=== PATIENT | male | born 1940 | race Caucasian/White ===

== ENCOUNTER 2016-11-29 03:45 | Inpatient (IN) | payer MEDICARE ==
[2016-11-29 03:46] VITALS: BMI 36.9
--- NOTE | 2016-11-29 04:35 | C.PDOC ---
History Of Present Illness Patient presents to the ER with a complaint of urinary retention since yesterday and states he feels very uncomfortable. On arrival a 18 hungarian paulson was inserted, 550cc of reddish urine drained with instant relief. Patient reports he has not been taking his Coumadin for his a-fib. Patient is also complaining of chronic right knee pain. Denies fever, chills, nausea, and vomiting. Time Seen by Provider: 11/29/16 04:34 Chief Complaint (Nursing): Male Genitourinary History Per: Patient History/Exam Limitations: no limitations Onset/Duration Of Symptoms: Hrs Current Symptoms Are (Timing): Still Present Severity: Mild Pain Scale Rating Of: 4 Quality Of Discomfort: Unable To Describe Associated Symptoms: Urinary Symptoms (Retention). denies: Fever, Chills, Nausea, Vomiting Alleviating Factors: None Recent travel outside of the [place]: No Past Medical History Reviewed: Historical Data, Nursing Documentation, Vital Signs Vital Signs: Last Vital Signs Temp 97.9 F 11/29/16 04:10 Pulse 107 H 11/29/16 04:43 Resp 20 11/29/16 04:10 BP 164/85 H 11/29/16 04:10 Pulse Ox 97 11/29/16 05:43 - Medical History PMH: Atrial Fibrillation, CAD, Diabetes, HTN, Hypercholesterolemia Surgical History: Coronary Stent - [facility] Procedures TRANSFUSE NONAUT RED BLOOD CELLS IN PERIPH VEIN, PERC (06/06/15) Family History: States: No Known Family Hx - Social History Hx Alcohol Use: No Hx Substance Use: No - Immunization History Hx Tetanus Toxoid Vaccination: No Hx Influenza Vaccination: No Hx Pneumococcal Vaccination: No Review Of Systems Constitutional: Negative for: Fever, Chills Eyes: Negative for: Vision Change Cardiovascular: Negative for: Chest Pain Respiratory: Negative for: Shortness of Breath Gastrointestinal: Negative for: Nausea, Vomiting Genitourinary: Positive for: Hematuria, Other (Retention, reddish urine) Musculoskeletal: Negative for: Back Pain Skin: Negative for: Rash Neurological: Negative for: Weakness Psych: Negative for: Anxiety Physical Exam - Physical Exam Appears: Non-toxic Skin: Warm, Dry Head: Normacephalic Eye(s): bilateral: Normal Inspection Oral Mucosa: Moist Neck: Supple Chest: Symmetrical Cardiovascular: Rhythm Irregular Respiratory: No Rales, No Rhonchi, No Wheezing Gastrointestinal/Abdominal: Soft, No Tenderness, Distention, Other (Tympanic to percussion) Back: No CVA Tenderness Extremity: Pedal Edema (Trace) Extremity: Bilateral: Atraumatic, Normal Color And Temperature, Normal ROM Pulses: Left Dorsalis Pedis: Normal, Right Dorsalis Pedis: Normal Neurological/Psych: Oriented x3, Normal Speech, Normal Cognition Gait: Unable To Assess ED Course And Treatment - Laboratory Results Result Diagrams: 11/29/16 04:47 11/29/16 04:47 ECG: Interpreted By Me, Viewed By Me ECG Rhythm: Atrial Fibrillation (107), Nonspecific Changes (lad, prolongued QT. , unchanged from 06/06/15) O2 Sat by Pulse Oximetry: 97 (Room air) Pulse Ox Interpretation: Normal - Radiology CXR: Interpreted by Me, Viewed By Me CXR Interpretation: Yes: Cardiomegaly, Other (mild venous congestion). No: Infiltrates, Fracture, Pnemothorax Progress Note: Blood work, EKG, CXR, and urinalysis ordered. Disposition Discussed With DrHaley: Shannon Stein Comment[facility] took over [facility] care at 5:56 AM Doctor Will See Patient In The: Hospital Counseled Patient/Family Regarding: Studies Performed, Diagnosis - Disposition Disposition: HOSPITALIZED Disposition Time: 04:34 Condition: FAIR Forms: [facility] (Vietnamese) - POA Present On Arrival: Poor Glycemic Control - Clinical Impression Clinical Impression: Urinary retention, Hematuria, Uncontrolled atrial fibrillation, Subtherapeutic anticoagulation - Scribe Statement The provider has reviewed the documentation as recorded by the Scribshay Nathan All medical record entries made by the Scribe were at my direction and personally dictated by me. I have reviewed the chart and agree that the record accurately reflects my personal performance of the history, physical exam, medical decision making, and the department course for this patient. I have also personally directed, reviewed, and agree with the discharge instructions and disposition. Decision To Admit - Pt Status Changed To: Hospital Disposition Of: Inpatient - Admit Certification Admit to Inpatient:: After my assessment, the patient will require hospitalization for at least two midnights. This is because of the severity of symptoms shown, intensity of services needed, and/or the medical risk in this patient being treated as an outpatient. - InPatient: Physician Admission Certification: I certify that this patient requires 2 or more midnights of care for the following reason:: After my assessment, the patient will require hospitalization for at least two midnights. This is because of the severity of symptoms shown, intensity of services needed, and/or the medical risk in this patient being treated as an outpatient. - . Bed Request Type: Telemetry Admitting Physician: Shannon Stein Patient Diagnosis: Urinary retention, Hematuria, Uncontrolled atrial fibrillation, Subtherapeutic anticoagulation
[2016-11-29 04:50] LABS: BASO # 0.1 K/uL (0.0-0.2); EOS % 0.4 % (0.0-4.0); MEAN CORPUSCULAR HGB CONC 33.9 g/dL (33.0-37.0)
[2016-11-29 04:57] LABS: RBC URINE 780 /hpf (0-3); URINE BILIRUBIN NEGATIVE (NEGATIVE); URINE BLOOD 3+ (NEGATIVE); URINE COLOR Yellow (YELLOW); URINE GLUCOSE (UA) 3+ mg/dL (Normal); URINE KETONE NEGATIVE (NEGATIVE); URINE LEUKOCYTE ESTERASE NEG Leu/uL (Negative); URINE PROTEIN 3+ mg/dL (NEGATIVE); URINE UROBILINOGEN NORMAL mg/dL (0.2-1.0)
[2016-11-29 05:01] LABS: BILIRUBIN,TOTAL 0.9 mg/dL (0.2-1.3); TOTAL PROTEIN 6.9 g/dL (6.3-8.3)
[2016-11-29 05:02] LABS: CALCIUM 9.6 mg/dl (8.6-10.4)
[2016-11-29 05:33] LABS: BASO % 0.8 % (0.0-2.0); HEMATOCRIT 40.6 % (35.0-51.0); LYMPH % 7.6 % (20.0-40.0); MEAN CORPUSCULAR HEMOGLOBIN 29.5 pg (27.0-31.0); MEAN PLATELET VOLUME 9.5 fL (7.2-11.7); MONO # 0.9 K/uL (0.0-0.8); PLATELET COUNT 141 K/uL (130-400); RED CELL DISTRIBUTION WIDTH 14.3 % (11.5-14.5)
[2016-11-29] MEDS ORDERED: Enoxaparin 40 mg Syringe SC STA (05:47)
[2016-11-29 06:02] LABS: BASOPHIL 1 % (0-2); EOSINOPHIL 1 % (0-4); NEUTROPHIL 87 % (50-75); TOTAL CELLS COUNTED 100
--- NOTE | 2016-11-29 09:25 | RAD ---
PROCEDURE: CHEST RADIOGRAPH, 1 VIEW HISTORY: Shortness of breath COMPARISON: None available. FINDINGS: LUNGS: Mild venous congestion. Patchy bibasilar airspace opacities. Biapical pleural thickening with upper lobe granulomatous changes. PLEURA: No pneumothorax or pleural fluid seen. CARDIOVASCULAR: Tortuous aorta. Mild cardiomegaly. Calcification at the aortic knob. OSSEOUS STRUCTURES: No significant abnormalities. VISUALIZED UPPER ABDOMEN: Normal. OTHER FINDINGS: None. IMPRESSION: Mild venous congestion. Patchy bibasilar airspace opacities. Biapical pleural thickening with upper lobe granulomatous changes.
[2016-11-29] MEDS: Ciprofloxacin 400mg/200ml D5W 400 MG/200 ML BAG IVPB SCH (16:24)
--- NOTE | 2016-11-29 16:37 | CP.PCM.HP ---
Past Patient History - Infectious Disease Hx of Infectious Diseases: None - Past Medical History & Family History Past Medical History?: Yes - Past Social History Smoking Status: Never Smoked - CARDIAC Hx Atrial Fibrillation: Yes Hx Hypercholesterolemia: Yes Hx Hypertension: Yes - PULMONARY Hx Chronic Obstructive Pulmonary Disease (COPD): No - NEUROLOGICAL Hx Neurological Disorder: No - HEENT Hx HEENT Problems: No - RENAL Hx Chronic Kidney Disease: No - ENDOCRINE/METABOLIC Hx Hypothyroidism: No - HEMATOLOGICAL/ONCOLOGICAL Hx Human Immunodeficiency Virus (HIV): No - INTEGUMENTARY Hx Dermatological Problems: No - MUSCULOSKELETAL/RHEUMATOLOGICAL Hx Arthritis: No Hx Rheumatoid Arthritis: No - GASTROINTESTINAL Hx Gastrointestinal Disorders: No - GENITOURINARY/GYNECOLOGICAL Hx Genitourinary Disorders: No - PSYCHIATRIC Hx Substance Use: No - SURGICAL HISTORY Hx Coronary Stent: Yes - ANESTHESIA Hx Anesthesia: Yes Hx Anesthesia Reactions: No Hx Malignant Hyperthermia: No Meds Allergies/Adverse Reactions: Allergies Allergy/AdvReac Type Severity Reaction Status Date / Time No Known Allergies Allergy Verified 11/29/16 04:15 Physical Exam - Constitutional Appears: Well - Head Exam Head Exam: ATRAUMATIC, NORMAL INSPECTION, NORMOCEPHALIC - Eye Exam Eye Exam: EOMI, Normal appearance, PERRL Pupil Exam: NORMAL ACCOMODATION, PERRL - ENT Exam ENT Exam: Mucous Membranes Moist, Normal Exam - Neck Exam Neck exam: Positive for: Normal Inspection - Respiratory Exam Respiratory Exam: Decreased Breath Sounds - Cardiovascular Exam Cardiovascular Exam: REGULAR RHYTHM, +S1, +S2 - GI/Abdominal Exam GI & Abdominal Exam: Diminished Bowel Sounds, Soft - Rectal Exam Rectal Exam: Deferred Results - Vital Signs Recent Vital Signs: Last Vital Signs Temp 98.5 F 11/29/16 07:38 Pulse 96 H 11/29/16 15:30 Resp 18 11/29/16 15:30 BP 163/109 H 11/29/16 15:30 Pulse Ox 96 11/29/16 15:30 - Labs Result Diagrams: 11/29/16 04:47 11/29/16 04:47 Labs: Laboratory Results - last 24 hr 11/29/16 11/29/16 11/29/16 04:47 04:47 04:47 WBC 13.0 H RBC 4.67 Hgb 13.8 Hct 40.6 MCV 87.0 MCH 29.5 MCHC 33.9 RDW 14.3 Plt Count 141 MPV 9.5 Neut % (Auto) 84.2 H Lymph % (Auto) 7.6 L [place] % (Auto) 7.0 Eos % (Auto) 0.4 Baso % (Auto) 0.8 Neut # 10.9 H Lymph # 1.0 [place] # 0.9 H Eos # 0.0 Baso # 0.1 Neutrophils % (Manual) 87 H Lymphocytes % (Manual) 5 L Monocytes % (Manual) 6 Eosinophils % (Manual) 1 Basophils % (Manual) 1 Platelet Estimate Normal PT 11.6 INR 1.0 APTT 31 Sodium 139 Potassium 4.0 Chloride 97 L Carbon Dioxide 27 Anion Gap 19 BUN 22 H Creatinine 1.4 Est GFR ( Amer) 60 Est GFR (Non-Af Amer) 49 POC Glucose (mg/dL) Random Glucose 247 H Calcium 9.6 Total Bilirubin 0.9 AST 22 ALT 27 Alkaline Phosphatase 117 Total Protein 6.9 Albumin 3.5 Globulin 3.5 Albumin/Globulin Ratio 1.0 Urine Color Urine Clarity Urine pH Ur Specific [place] Urine Protein Urine Glucose (UA) Urine Ketones Urine Blood Urine Nitrate Urine Bilirubin Urine Urobilinogen Ur Leukocyte Esterase Urine RBC (Auto) 11/29/16 11/29/16 04:49 14:21 WBC RBC Hgb Hct MCV MCH MCHC RDW Plt Count MPV Neut % (Auto) Lymph % (Auto) [place] % (Auto) Eos % (Auto) Baso % (Auto) Neut # Lymph # [place] # Eos # Baso # Neutrophils % (Manual) Lymphocytes % (Manual) Monocytes % (Manual) Eosinophils % (Manual) Basophils % (Manual) Platelet Estimate PT INR APTT Sodium Potassium Chloride Carbon Dioxide Anion Gap BUN Creatinine Est GFR ( Amer) Est GFR (Non-Af Amer) POC Glucose (mg/dL) 292 H Random Glucose Calcium Total Bilirubin AST ALT Alkaline Phosphatase Total Protein Albumin Globulin Albumin/Globulin Ratio Urine Color Yellow Urine Clarity Hazy Urine pH 7.0 Ur Specific [place] 1.014 Urine Protein 3+ H Urine Glucose (UA) 3+ H Urine Ketones Negative Urine Blood 3+ H Urine Nitrate Negative Urine Bilirubin Negative Urine Urobilinogen Normal Ur Leukocyte Esterase Neg Urine RBC (Auto) 780 H
--- NOTE | 2016-11-29 16:40 | CT ---
PROCEDURE: CT Abdomen and Pelvis without intravenous contrast HISTORY: Hematuria COMPARISON: None. TECHNIQUE: Without contrast.. Contrast Dose: 0 Radiation dose: Total exam DLP = 1173.26 mGy-cm. This CT exam was performed using one or more of the following dose reduction techniques: Automated exposure control, adjustment of the mA and/or kV according to patient size, and/or use of iterative reconstruction technique. FINDINGS: LOWER THORAX: Right middle lobe infiltrate. Only partially included in this examination. Mild cardiomegaly. Coronary arterial calcification. LIVER: Normal size, contour and attenuation. No mass. No biliary dilatation. GALLBLADDER AND BILE DUCTS: Unremarkable. PANCREAS: Unremarkable. No gross lesion or ductal dilatation. SPLEEN: Unremarkable. ADRENALS: Probable bilateral adrenal hypertrophy. No adrenal mass identified. KIDNEYS AND URETERS: Severe left hydronephrosis with a thin rim of remaining cortex. No hydroureter. 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 Punctate calcification in lower pole left kidney, nonspecific. No right hydronephrosis. Minimal right hydroureter, nonspecific. Mild light power re- ureteric stranding. This may indicate a recently passed urinary calculus. Right lower pole renal cyst, 3.1 cm. Mid right renal cortical cyst, 7.4 cm, with irregular curvilinear peripheral calcification. Recommend correlation with ultrasound examination. No renal calculus. VASCULATURE: Unremarkable. No aortic aneurysm. BOWEL: Sigmoid diverticulosis without evidence of diverticulitis. Mild retained feces. APPENDIX: Unremarkable. Normal appendix. PERITONEUM: Unremarkable. No free fluid. No free air. LYMPH NODES: Unremarkable. No enlarged lymph nodes. BLADDER: Decompressed around Lord catheter balloon REPRODUCTIVE: Enlarged prostate. Normal seminal vesicles. BONES: Lumbar scoliosis. No osseous fracture. Small bone island in the L3 vertebral body. OTHER FINDINGS: None. IMPRESSION: Right middle lobe infiltrate only partially included in this examination. Severe left hydronephrosis with thin residual cortex. Likely ureteropelvic junction obstruction, etiology uncertain. No right hydronephrosis. Mild right hydroureter common nonspecific. Mild right periureteric stranding. Possible recently passed urinary calculus. Sigmoid diverticulosis without evidence of diverticulitis. Enlarged prostate. Lord catheter. Large right renal cyst with atypical mural calcification. Recommend correlation with ultrasound examination on a nonemergent basis. Additional minor findings as above.
[2016-11-29] MEDS: Enoxaparin 100 mg Syringe SC SCH (16:46)
[2016-11-29] MEDS ORDERED: HYDROmorphone 1 mg/ml ISec IVP PRN (23:11)
[2016-11-30] MEDS: Ciprofloxacin 400mg/200ml D5W 400 MG/200 ML BAG IVPB SCH ×2 (03:29→14:12)
[2016-11-30] MEDS: Levothyroxine 25 MCG TAB PO SCH (05:58)
[2016-11-30] MEDS ORDERED: Pantoprazole 40 mg EC Tab PO SCH (10:00)
[2016-11-30] MEDS ORDERED: Metoprolol Succinate 200 mg XL Tab PO SCH (10:00)
[2016-11-30] MEDS: Enoxaparin 100 mg Syringe SC SCH ×2 (10:59→14:11)
[2016-11-30] MEDS: Metoprolol Succinate 100 mg XL Tab PO SCH (10:59)
[2016-11-30] MEDS: Pantoprazole 40 mg EC Tab PO SCH (11:00)
--- NOTE | 2016-11-30 18:32 | CP.PCM.PN ---
Subjective - Date & Time of Evaluation Date of Evaluation: 11/30/16 Time of Evaluation: 13:20 - Subjective Subjective: clinically same Objective - Vital Signs/Intake and Output Vital Signs (last 24 hours): Temp Pulse Resp BP Pulse Ox 98.0 F 86 20 145/90 97 11/30/16 15:15 11/30/16 15:15 11/30/16 15:15 11/30/16 15:15 11/30/16 15:15 Intake and Output: 11/30/16 11/30/16 06:59 18:59 Intake Total 680 475 Output Total 1000 300 Balance -320 175 - Medications Medications: Current Medications Amlodipine Besylate (Norvasc) 5 mg PO DAILY [facility] Last Admin: 11/30/16 13:30 Dose: 5 mg Enoxaparin Sodium (Lovenox) 100 mg SC DAILY [facility] Last Admin: 11/30/16 14:11 Dose: 100 mg Glipizide (Glucotrol) 5 mg PO BID [facility] Last Admin: 11/30/16 18:02 Dose: Not Given Hydrochlorothiazide (Microzide) 12.5 mg PO DAILY [facility] Last Admin: 11/30/16 10:59 Dose: 12.5 mg Hydromorphone HCl (Dilaudid) 1 mg IVP Q8H PRN PRN Reason: Pain, severe (8-10) Ciprofloxacin (Cipro 400mg/200ml Dsw) 400 mg in 200 mls @ 133 mls/hr IVPB Q12H [facility] Last Admin: 11/30/16 14:12 Dose: 133 mls/hr Levothyroxine Sodium (Synthroid) 25 mcg PO DAILY@0630 [facility] Last Admin: 11/30/16 05:58 Dose: 25 mcg Losartan Potassium (Cozaar) 100 mg PO DAILY [facility] Last Admin: 11/30/16 10:59 Dose: 100 mg Metformin HCl (Glucophage) 1,000 mg PO BID [facility] Last Admin: 11/30/16 18:02 Dose: Not Given Metoprolol Succinate (Toprol Xl) 100 mg PO DAILY [facility] Last Admin: 11/30/16 10:59 Dose: 100 mg Pantoprazole Sodium (Protonix Ec Tab) 40 mg PO DAILY [facility] Last Admin: 11/30/16 11:00 Dose: Not Given Rosuvastatin Calcium (Crestor) 10 mg PO HS [facility] Last Admin: 11/29/16 22:37 Dose: Not Given Tamsulosin HCl (Flomax) 0.4 mg PO DAILY [facility] Last Admin: 11/30/16 13:30 Dose: 0.4 mg - Labs Labs: 11/29/16 04:47 11/29/16 04:47 PT 11.6 SECONDS (9.7-12.2) 11/29/16 04:47 INR 1.0 11/29/16 04:47 APTT 31 SECONDS (21-34) 11/29/16 04:47 - Constitutional Appears: Well - Head Exam Head Exam: ATRAUMATIC, NORMAL INSPECTION, NORMOCEPHALIC - Eye Exam Eye Exam: EOMI, Normal appearance, PERRL Pupil Exam: NORMAL ACCOMODATION, PERRL - ENT Exam ENT Exam: Mucous Membranes Moist, Normal Exam - Neck Exam Neck Exam: Full ROM, Normal Inspection. absent: Lymphadenopathy - Respiratory Exam Respiratory Exam: Decreased Breath Sounds - Cardiovascular Exam Cardiovascular Exam: REGULAR RHYTHM, +S1, +S2 - GI/Abdominal Exam GI & Abdominal Exam: Soft, Diminished Bowel Sounds - Rectal Exam Rectal Exam: Deferred
[2016-12-01] MEDS: HYDROmorphone 0.5 mg/0.5 ml ISec IVP PRN ×2 (01:53→21:48)
[2016-12-01] MEDS: Ciprofloxacin 400mg/200ml D5W 400 MG/200 ML BAG IVPB SCH ×2 (02:01→14:24)
[2016-12-01] MEDS: Levothyroxine 25 MCG TAB PO SCH (05:58)
[2016-12-01] MEDS: Metoprolol Succinate 100 mg XL Tab PO SCH (10:10)
[2016-12-01] MEDS: Pantoprazole 40 mg EC Tab PO SCH (10:10)
[2016-12-01] MEDS: Enoxaparin 100 mg Syringe SC SCH (10:15)
[2016-12-01] MEDS ORDERED: Lidocaine Hydrochloride 5 ML INJ ONE (10:27)
[2016-12-01] MEDS ORDERED: Propofol 10 mg/ml Inj (20 ML) ONE (10:27)
[2016-12-01] MEDS ORDERED: Iohexol 240 (50 ml) ONE (11:11)
[2016-12-01] MEDS ORDERED: Lidocaine 2% Jelly (Uro-Jet) ONE (11:11)
[2016-12-01] MEDS ORDERED: Lactated Ringer's 1,000 ML IV ONE (11:15)
[2016-12-01] MEDS ORDERED: Iohexol 240 200 ML IJ ONE (11:21)
[2016-12-01] MEDS ORDERED: Midazolam 2 MG/2 ML VIAL ONE ×2 (11:22→11:33)
--- NOTE | 2016-12-01 11:52 | CARD ---
APPROVED REPORT EKG Measurement Heart [id number] <Conclusion> Atrial fibrillation with rapid ventricular response with premature ventricular or aberrantly conducted complexes Left axis deviation Septal infarct, age undetermined Inferior infarct, age undetermined T wave abnormality, consider lateral ischemia Prolonged QT Abnormal ECG
--- NOTE | 2016-12-01 12:26 | CP.PCM.CON ---
History of Present Illness - History of Present Illness History of Present Illness: Imp: hematuria, urinary retnetion full note t/f Past Patient History - Infectious Disease Hx of Infectious Diseases: None - Past Medical History & Family History Past Medical History?: Yes - Past Social History Smoking Status: Never Smoked - CARDIAC Hx Atrial Fibrillation: Yes Hx Hypercholesterolemia: Yes Hx Hypertension: Yes - PULMONARY Hx Chronic Obstructive Pulmonary Disease (COPD): No - NEUROLOGICAL Hx Neurological Disorder: No - HEENT Hx HEENT Problems: No - RENAL Hx Chronic Kidney Disease: No - ENDOCRINE/METABOLIC Hx Hypothyroidism: No - HEMATOLOGICAL/ONCOLOGICAL Hx Human Immunodeficiency Virus (HIV): No - INTEGUMENTARY Hx Dermatological Problems: No - MUSCULOSKELETAL/RHEUMATOLOGICAL Hx Arthritis: No Hx Falls: Yes Hx Rheumatoid Arthritis: No - GASTROINTESTINAL Hx Gastrointestinal Disorders: No - GENITOURINARY/GYNECOLOGICAL Hx Genitourinary Disorders: No - PSYCHIATRIC Hx Substance Use: No - SURGICAL HISTORY Hx Coronary Stent: Yes - ANESTHESIA Hx Anesthesia: Yes Hx Anesthesia Reactions: No Hx Malignant Hyperthermia: No Meds Allergies/Adverse Reactions: Allergies Allergy/AdvReac Type Severity Reaction Status Date / Time No Known Allergies Allergy Verified 11/29/16 04:15 - Medications Medications: Current Medications Amlodipine Besylate (Norvasc) 5 mg PO DAILY [facility] Last Admin: 12/01/16 10:10 Dose: 5 mg Enoxaparin Sodium (Lovenox) 100 mg SC DAILY [facility] Last Admin: 11/30/16 14:11 Dose: 100 mg Glipizide (Glucotrol) 5 mg PO BID [facility] Last Admin: 12/01/16 10:10 Dose: 5 mg Hydrochlorothiazide (Microzide) 12.5 mg PO DAILY [facility] Last Admin: 12/01/16 10:10 Dose: 12.5 mg Hydromorphone HCl (Dilaudid) 1 mg IVP Q8H PRN PRN Reason: Pain, severe (8-10) Last Admin: 12/01/16 01:53 Dose: 1 mg Ciprofloxacin (Cipro 400mg/200ml Dsw) 400 mg in 200 mls @ 133 mls/hr IVPB Q12H [facility] Last Admin: 12/01/16 02:01 Dose: 133 mls/hr Levothyroxine Sodium (Synthroid) 25 mcg PO DAILY@0630 [facility] Last Admin: 12/01/16 05:58 Dose: 25 mcg Losartan Potassium (Cozaar) 100 mg PO DAILY [facility] Last Admin: 12/01/16 10:10 Dose: 100 mg Metformin HCl (Glucophage) 1,000 mg PO BID [facility] Last Admin: 12/01/16 10:09 Dose: 1,000 mg Metoprolol Succinate (Toprol Xl) 100 mg PO DAILY [facility] Last Admin: 12/01/16 10:10 Dose: 100 mg Pantoprazole Sodium (Protonix Ec Tab) 40 mg PO DAILY [facility] Last Admin: 12/01/16 10:10 Dose: 40 mg Rosuvastatin Calcium (Crestor) 10 mg PO HS [facility] Last Admin: 11/30/16 22:33 Dose: 10 mg Tamsulosin HCl (Flomax) 0.4 mg PO DAILY [facility] Last Admin: 12/01/16 10:10 Dose: 0.4 mg Results - Vital Signs Recent Vital Signs: Last Vital Signs Temp 98.1 F 12/01/16 08:38 Pulse 90 12/01/16 08:38 Resp 20 12/01/16 08:38 BP 142/79 12/01/16 08:38 Pulse Ox 96 12/01/16 08:38 - Labs Result Diagrams: 11/29/16 04:47 11/29/16 04:47 Labs: Laboratory Results - last 24 hr 11/30/16 11/30/16 12/01/16 12:08 16:56 06:31 POC Glucose (mg/dL) 249 H 230 H 189 H Assessment & Plan - Assessment and Plan (Free Text) Assessment: Urinary retention hematuria - Date & Time Date: 12/01/16 Time: 10:30
--- NOTE | 2016-12-01 12:31 | PCM.SURG1 ---
Surgeon's Initial Post Op Note - Surgeon's Notes Surgeon: Nile Martinez Finishing Wire Sawyer: none Type of Anesthesia: IV Sedation Pre-Operative Diagnosis: urinary retention. hematuria. L hydronephrosis Operative Findings: bph. bleeding of prostatic origin. hemorrhagic cystitis. tortuous and medially deviated course of L distal ureter. L hydronephrosis, mild, not corresponding to ct scan Post-Operative Diagnosis: same Operation Performed: cystogram. cystoscopy. fulguration of prostatic bleeding. L retrograde pyelogram, insertion of L ureteral stent Specimen/Specimens Removed: none Estimated Blood Loss: EBL {In ML}: 20 Blood Products Given: N/A Date of Surgery/Procedure: 12/01/16 Time of Surgery/Procedure: 12:25
[2016-12-01] MEDS ORDERED: HYDROmorphone 0.5 mg/0.5 ml ISec IVP PRN (12:37)
[2016-12-01] MEDS ORDERED: HYDROmorphone 0.5 mg/0.5 ml ISec ONE (12:39)
--- NOTE | 2016-12-01 15:43 | RAD ---
PROCEDURE: Intraoperative fluoroscopy HISTORY: HEMATURIA,URINARY RETENTION COMPARISON: Not available TECHNIQUE: Intraoperative fluoroscopy was provided for cystography and left ureteral stent insertion. Total time of fluoroscopy was 114.9 seconds. FINDINGS: Multiple fluoroscopic spot films are submitted. These films are on file for review. IMPRESSION: Fluoroscopy provided.
[2016-12-01] MEDS: Lactated Ringer's 1,000 ML IV SCH (19:13)
--- NOTE | 2016-12-01 20:00 | CP.PCM.PN ---
Subjective - Date & Time of Evaluation Date of Evaluation: 12/01/16 Time of Evaluation: 12:20 - Subjective Subjective: clinically same Objective - Vital Signs/Intake and Output Vital Signs (last 24 hours): Temp Pulse Resp BP Pulse Ox 98.0 F 89 20 133/84 98 12/01/16 15:25 12/01/16 15:25 12/01/16 15:25 12/01/16 15:25 12/01/16 15:25 Intake and Output: 12/01/16 12/02/16 18:59 06:59 Intake Total 640 Output Total 450 Balance 190 - Medications Medications: Current Medications Amlodipine Besylate (Norvasc) 5 mg PO DAILY [facility] Last Admin: 12/01/16 10:10 Dose: 5 mg Enoxaparin Sodium (Lovenox) 100 mg SC DAILY [facility] Last Admin: 12/01/16 10:15 Dose: Not Given Glipizide (Glucotrol) 5 mg PO BID [facility] Last Admin: 12/01/16 19:16 Dose: 5 mg Hydrochlorothiazide (Microzide) 12.5 mg PO DAILY [facility] Last Admin: 12/01/16 10:10 Dose: 12.5 mg Hydromorphone HCl (Dilaudid) 1 mg IVP Q8H PRN PRN Reason: Pain, severe (8-10) Last Admin: 12/01/16 01:53 Dose: 1 mg Ciprofloxacin (Cipro 400mg/200ml Dsw) 400 mg in 200 mls @ 133 mls/hr IVPB Q12H [facility] Last Admin: 12/01/16 14:24 Dose: 133 mls/hr Lactated Ringer's (Lactated Ringer's) 1,000 mls @ 100 mls/hr IV .Q10H [facility] Last Admin: 12/01/16 19:13 Dose: 100 mls/hr Levothyroxine Sodium (Synthroid) 25 mcg PO DAILY@0630 [facility] Last Admin: 12/01/16 05:58 Dose: 25 mcg Losartan Potassium (Cozaar) 100 mg PO DAILY [facility] Last Admin: 12/01/16 10:10 Dose: 100 mg Metformin HCl (Glucophage) 1,000 mg PO BID [facility] Last Admin: 12/01/16 19:16 Dose: 1,000 mg Metoprolol Succinate (Toprol Xl) 100 mg PO DAILY [facility] Last Admin: 12/01/16 10:10 Dose: 100 mg Pantoprazole Sodium (Protonix Ec Tab) 40 mg PO DAILY [facility] Last Admin: 12/01/16 10:10 Dose: 40 mg Rosuvastatin Calcium (Crestor) 10 mg PO HS [facility] Last Admin: 11/30/16 22:33 Dose: 10 mg Tamsulosin HCl (Flomax) 0.4 mg PO DAILY [facility] Last Admin: 12/01/16 10:10 Dose: 0.4 mg - Labs Labs: 11/29/16 04:47 11/29/16 04:47 PT 11.6 SECONDS (9.7-12.2) 11/29/16 04:47 INR 1.0 11/29/16 04:47 APTT 31 SECONDS (21-34) 11/29/16 04:47 - Constitutional Appears: Well - Head Exam Head Exam: ATRAUMATIC, NORMAL INSPECTION, NORMOCEPHALIC - Eye Exam Eye Exam: EOMI, Normal appearance, PERRL Pupil Exam: NORMAL ACCOMODATION, PERRL - ENT Exam ENT Exam: Mucous Membranes Moist, Normal Exam - Neck Exam Neck Exam: Full ROM, Normal Inspection. absent: Lymphadenopathy - Respiratory Exam Respiratory Exam: Decreased Breath Sounds - Cardiovascular Exam Cardiovascular Exam: REGULAR RHYTHM, +S1, +S2 - GI/Abdominal Exam GI & Abdominal Exam: Soft, Diminished Bowel Sounds - Rectal Exam Rectal Exam: Deferred
[2016-12-02] MEDS: Ciprofloxacin 400mg/200ml D5W 400 MG/200 ML BAG IVPB SCH ×2 (02:04→14:34)
[2016-12-02] MEDS: HYDROmorphone 0.5 mg/0.5 ml ISec IVP PRN (06:03)
[2016-12-02] MEDS: Levothyroxine 25 MCG TAB PO SCH (06:03)
[2016-12-02] MEDS: Lactated Ringer's 1,000 ML IV SCH (06:13)
[2016-12-02 07:21] LABS: HEMATOCRIT 35.5 % (35.0-51.0); MEAN CELL VOLUME 87.1 fL (80.0-94.0); MEAN CORPUSCULAR HEMOGLOBIN 29.7 pg (27.0-31.0); MEAN CORPUSCULAR HGB CONC 34.1 g/dL (33.0-37.0); MEAN PLATELET VOLUME 9.1 fL (7.2-11.7); WHITE BLOOD COUNT 9.5 K/uL (4.8-10.8)
[2016-12-02 07:55] LABS: CHLORIDE 93 mmol/L (98-107); POTASSIUM 3.6 mmol/L (3.6-5.2); SODIUM 129 mmol/L (132-148)
[2016-12-02 07:58] LABS: BLOOD UREA NITROGEN 24 mg/dL (9-20); CARBON DIOXIDE 26 mmol/L (22-30); GFR AFRICAN-AMERICAN > 60
[2016-12-02 07:59] LABS: CALCIUM 8.4 mg/dl (8.6-10.4); GLUCOSE,RANDOM 142 mg/dL (75-110)
[2016-12-02] MEDS: Metoprolol Succinate 100 mg XL Tab PO SCH (09:41)
[2016-12-02] MEDS: Pantoprazole 40 mg EC Tab PO SCH (09:41)
--- NOTE | 2016-12-02 09:47 | CP.PCM.PN ---
Subjective - Date & Time of Evaluation Date of Evaluation: 12/02/16 Time of Evaluation: 12:20 - Subjective Subjective: clinically same Objective - Vital Signs/Intake and Output Vital Signs (last 24 hours): Temp Pulse Resp BP Pulse Ox 97.8 F 79 20 151/91 H 98 12/02/16 07:25 12/02/16 07:25 12/02/16 07:25 12/02/16 07:25 12/02/16 07:25 Intake and Output: 12/02/16 12/02/16 06:59 18:59 Intake Total 2270 Output Total 300 Balance 1970 - Medications Medications: Current Medications Amlodipine Besylate (Norvasc) 5 mg PO DAILY [facility] Last Admin: 12/02/16 09:41 Dose: 5 mg Enoxaparin Sodium (Lovenox) 100 mg SC DAILY [facility] Last Admin: 12/01/16 10:15 Dose: Not Given Glipizide (Glucotrol) 5 mg PO BID [facility] Last Admin: 12/02/16 09:41 Dose: 5 mg Hydrochlorothiazide (Microzide) 12.5 mg PO DAILY [facility] Last Admin: 12/02/16 09:41 Dose: 12.5 mg Hydromorphone HCl (Dilaudid) 1 mg IVP Q8H PRN PRN Reason: Pain, severe (8-10) Last Admin: 12/02/16 06:03 Dose: 1 mg Ciprofloxacin (Cipro 400mg/200ml Dsw) 400 mg in 200 mls @ 133 mls/hr IVPB Q12H [facility] Last Admin: 12/02/16 02:04 Dose: 133 mls/hr Lactated Ringer's (Lactated Ringer's) 1,000 mls @ 100 mls/hr IV .Q10H [facility] Last Admin: 12/02/16 06:13 Dose: 100 mls/hr Levothyroxine Sodium (Synthroid) 25 mcg PO DAILY@0630 [facility] Last Admin: 12/02/16 06:03 Dose: 25 mcg Losartan Potassium (Cozaar) 100 mg PO DAILY [facility] Last Admin: 12/02/16 09:41 Dose: 100 mg Metformin HCl (Glucophage) 1,000 mg PO BID [facility] Last Admin: 12/02/16 09:40 Dose: 1,000 mg Metoprolol Succinate (Toprol Xl) 100 mg PO DAILY [facility] Last Admin: 12/02/16 09:41 Dose: 100 mg Pantoprazole Sodium (Protonix Ec Tab) 40 mg PO DAILY [facility] Last Admin: 12/02/16 09:41 Dose: 40 mg Rosuvastatin Calcium (Crestor) 10 mg PO HS [facility] Last Admin: 12/01/16 21:57 Dose: 10 mg Tamsulosin HCl (Flomax) 0.4 mg PO DAILY [facility] Last Admin: 12/02/16 09:41 Dose: 0.4 mg - Labs Labs: 12/02/16 07:06 12/02/16 07:06 PT 11.6 SECONDS (9.7-12.2) 11/29/16 04:47 INR 1.0 11/29/16 04:47 APTT 31 SECONDS (21-34) 11/29/16 04:47 - Constitutional Appears: Well - Head Exam Head Exam: ATRAUMATIC, NORMAL INSPECTION, NORMOCEPHALIC - Eye Exam Eye Exam: EOMI, Normal appearance, PERRL Pupil Exam: NORMAL ACCOMODATION, PERRL - ENT Exam ENT Exam: Mucous Membranes Moist, Normal Exam - Neck Exam Neck Exam: Full ROM, Normal Inspection. absent: Lymphadenopathy - Respiratory Exam Respiratory Exam: Decreased Breath Sounds - Cardiovascular Exam Cardiovascular Exam: REGULAR RHYTHM, +S1, +S2 - GI/Abdominal Exam GI & Abdominal Exam: Soft, Diminished Bowel Sounds - Rectal Exam Rectal Exam: Deferred
[2016-12-02] MEDS: Enoxaparin 100 mg Syringe SC SCH (10:00)
--- NOTE | 2016-12-02 10:50 | RAD ---
PROCEDURE: Bilateral Knee Radiographs. HISTORY: Knee pain COMPARISON: None. FINDINGS: BONES: There is no fracture appreciated bilaterally. However, there is somewhat mottled appearance at the left patella. Diffuse osteopenia suggests osteoporosis bilaterally appears unclear with this mottled appearance of the left patella is a function of osteoporosis or other underlying process. Fall left knee MRI is recommended for additional characterization. JOINTS: Bilateral medial and patellofemoral compartment joint space narrowing is identified accompanied by cortical sclerosis compatible osteoarthritis. The lateral femorotibial compartments appear least affected. No subluxation or dislocation. SOFT TISSUES: Vascular calcifications are identified in the posterior knee soft tissues bilaterally as well as medial distal thigh is as well JOINT EFFUSION: Right Knee: None. Left Knee: Trace left suprapatellar bursa effusion is in question. OTHER FINDINGS: None. IMPRESSION: 1. A mottled appearance of the left patella is identified, potentially a function of osteoporosis although this is not definite. Follow-up MRI of the left knee is advised for did greater characterization. 2. Moderate degenerative joint changes are appreciated, predominantly bicompartmental bilaterally.
[2016-12-03] MEDS: Ciprofloxacin 400mg/200ml D5W 400 MG/200 ML BAG IVPB SCH ×2 (02:46→14:59)
[2016-12-03 03:59] LABS: ESTIM. PROBABILITY CANCER >50 Percent; TOTAL PSA 23.5 ng/mL (<=4.0)
[2016-12-03] MEDS: Levothyroxine 25 MCG TAB PO SCH (05:41)
[2016-12-03] MEDS: HYDROmorphone 0.5 mg/0.5 ml ISec IVP PRN ×2 (05:45→23:09)
[2016-12-03] MEDS: Pantoprazole 40 mg EC Tab PO SCH (10:58)
[2016-12-03] MEDS: Metoprolol Succinate 100 mg XL Tab PO SCH (11:06)
--- NOTE | 2016-12-03 18:59 | CP.PCM.PN ---
Subjective - Date & Time of Evaluation Date of Evaluation: 12/03/16 Time of Evaluation: 11:40 - Subjective Subjective: clinically same Objective - Vital Signs/Intake and Output Vital Signs (last 24 hours): Temp Pulse Resp BP Pulse Ox 98.4 F 87 20 168/89 H 94 L 12/03/16 15:00 12/03/16 15:00 12/03/16 15:00 12/03/16 15:00 12/03/16 15:00 Intake and Output: 12/03/16 12/03/16 06:59 18:59 Intake Total 500 300 Output Total 1450 Balance -950 300 - Medications Medications: Current Medications Amlodipine Besylate (Norvasc) 5 mg PO DAILY [facility] Last Admin: 12/03/16 10:58 Dose: 5 mg Glipizide (Glucotrol) 5 mg PO BID [facility] Last Admin: 12/03/16 10:58 Dose: 5 mg Hydrochlorothiazide (Microzide) 12.5 mg PO DAILY [facility] Last Admin: 12/03/16 11:06 Dose: 12.5 mg Hydromorphone HCl (Dilaudid) 1 mg IVP Q8H PRN PRN Reason: Pain, severe (8-10) Last Admin: 12/03/16 05:45 Dose: 1 mg Ciprofloxacin (Cipro 400mg/200ml Dsw) 400 mg in 200 mls @ 133 mls/hr IVPB Q12H [facility] Last Admin: 12/03/16 14:59 Dose: 133 mls/hr Levothyroxine Sodium (Synthroid) 25 mcg PO DAILY@0630 [facility] Last Admin: 12/03/16 05:41 Dose: 25 mcg Losartan Potassium (Cozaar) 100 mg PO DAILY [facility] Last Admin: 12/03/16 10:58 Dose: 100 mg Metformin HCl (Glucophage) 1,000 mg PO BID [facility] Last Admin: 12/03/16 10:58 Dose: 1,000 mg Metoprolol Succinate (Toprol Xl) 100 mg PO DAILY [facility] Last Admin: 12/03/16 11:06 Dose: 100 mg Ondansetron HCl (Zofran Inj) 4 mg IVP Q6H PRN PRN Reason: Nausea/Vomiting Last Admin: 12/02/16 19:48 Dose: 4 mg Pantoprazole Sodium (Protonix Ec Tab) 40 mg PO DAILY [facility] Last Admin: 12/03/16 10:58 Dose: 40 mg Rosuvastatin Calcium (Crestor) 10 mg PO HS [facility] Last Admin: 12/02/16 21:38 Dose: 10 mg Sucralfate (Carafate Tab) 1 gm PO TIDAC [facility] Last Admin: 12/03/16 17:17 Dose: 1 gm Tamsulosin HCl (Flomax) 0.4 mg PO DAILY [facility] Last Admin: 12/03/16 10:58 Dose: 0.4 mg - Labs Labs: 12/02/16 07:06 12/02/16 07:06 PT 11.6 SECONDS (9.7-12.2) 11/29/16 04:47 INR 1.0 11/29/16 04:47 APTT 31 SECONDS (21-34) 11/29/16 04:47 - Constitutional Appears: Well - Head Exam Head Exam: ATRAUMATIC, NORMAL INSPECTION, NORMOCEPHALIC - Eye Exam Eye Exam: EOMI, Normal appearance, PERRL Pupil Exam: NORMAL ACCOMODATION, PERRL - ENT Exam ENT Exam: Mucous Membranes Moist, Normal Exam - Neck Exam Neck Exam: Full ROM, Normal Inspection. absent: Lymphadenopathy - Respiratory Exam Respiratory Exam: Decreased Breath Sounds - Cardiovascular Exam Cardiovascular Exam: REGULAR RHYTHM, +S1, +S2 - GI/Abdominal Exam GI & Abdominal Exam: Soft, Diminished Bowel Sounds - Rectal Exam Rectal Exam: Deferred
[2016-12-04] MEDS: Ciprofloxacin 400mg/200ml D5W 400 MG/200 ML BAG IVPB SCH ×2 (02:03→15:00)
[2016-12-04] MEDS: Levothyroxine 25 MCG TAB PO SCH (06:52)
[2016-12-04] MEDS: Pantoprazole 40 mg EC Tab PO SCH (09:56)
[2016-12-04] MEDS: Metoprolol Succinate 100 mg XL Tab PO SCH (09:56)
[2016-12-04] MEDS: HYDROmorphone 0.5 mg/0.5 ml ISec IVP PRN ×2 (14:52→23:08)
--- NOTE | 2016-12-04 15:29 | CP.PCM.PN ---
Subjective - Date & Time of Evaluation Date of Evaluation: 12/04/16 Time of Evaluation: 11:20 - Subjective Subjective: clinically same Objective - Vital Signs/Intake and Output Vital Signs (last 24 hours): Temp Pulse Resp BP Pulse Ox 98.2 F 83 20 148/98 H 97 12/04/16 08:34 12/04/16 08:34 12/04/16 08:34 12/04/16 08:34 12/04/16 08:34 Intake and Output: 12/04/16 12/04/16 06:59 18:59 Intake Total 1010 Output Total 1800 Balance -790 - Medications Medications: Current Medications Amlodipine Besylate (Norvasc) 5 mg PO DAILY [facility] Last Admin: 12/04/16 09:56 Dose: 5 mg Glipizide (Glucotrol) 5 mg PO BID [facility] Last Admin: 12/04/16 10:07 Dose: 5 mg Hydrochlorothiazide (Microzide) 12.5 mg PO DAILY [facility] Last Admin: 12/04/16 09:56 Dose: 12.5 mg Hydromorphone HCl (Dilaudid) 1 mg IVP Q8H PRN PRN Reason: Pain, severe (8-10) Last Admin: 12/04/16 14:52 Dose: 1 mg Ciprofloxacin (Cipro 400mg/200ml Dsw) 400 mg in 200 mls @ 133 mls/hr IVPB Q12H [facility] Last Admin: 12/04/16 15:00 Dose: 133 mls/hr Levothyroxine Sodium (Synthroid) 25 mcg PO DAILY@0630 [facility] Last Admin: 12/04/16 06:52 Dose: 25 mcg Losartan Potassium (Cozaar) 100 mg PO DAILY [facility] Last Admin: 12/04/16 09:56 Dose: 100 mg Metformin HCl (Glucophage) 1,000 mg PO BID [facility] Last Admin: 12/04/16 10:07 Dose: 1,000 mg Metoprolol Succinate (Toprol Xl) 100 mg PO DAILY [facility] Last Admin: 12/04/16 09:56 Dose: 100 mg Ondansetron HCl (Zofran Inj) 4 mg IVP Q6H PRN PRN Reason: Nausea/Vomiting Last Admin: 12/02/16 19:48 Dose: 4 mg Pantoprazole Sodium (Protonix Ec Tab) 40 mg PO DAILY [facility] Last Admin: 12/04/16 09:56 Dose: 40 mg Rosuvastatin Calcium (Crestor) 10 mg PO HS [facility] Last Admin: 12/03/16 22:18 Dose: 10 mg Sucralfate (Carafate Tab) 1 gm PO TIDAC [facility] Last Admin: 12/04/16 13:22 Dose: 1 gm Tamsulosin HCl (Flomax) 0.4 mg PO DAILY [facility] Last Admin: 12/04/16 10:07 Dose: 0.4 mg - Labs Labs: 12/02/16 07:06 12/02/16 07:06 PT 11.6 SECONDS (9.7-12.2) 11/29/16 04:47 INR 1.0 11/29/16 04:47 APTT 31 SECONDS (21-34) 11/29/16 04:47 - Constitutional Appears: Well - Head Exam Head Exam: ATRAUMATIC, NORMAL INSPECTION, NORMOCEPHALIC - Eye Exam Eye Exam: EOMI, Normal appearance, PERRL Pupil Exam: NORMAL ACCOMODATION, PERRL - ENT Exam ENT Exam: Mucous Membranes Moist, Normal Exam - Neck Exam Neck Exam: Full ROM, Normal Inspection. absent: Lymphadenopathy - Respiratory Exam Respiratory Exam: Decreased Breath Sounds - Cardiovascular Exam Cardiovascular Exam: REGULAR RHYTHM, +S1, +S2 - GI/Abdominal Exam GI & Abdominal Exam: Soft, Diminished Bowel Sounds - Rectal Exam Rectal Exam: Deferred
[2016-12-05] MEDS: Ciprofloxacin 400mg/200ml D5W 400 MG/200 ML BAG IVPB SCH ×2 (02:15→15:00)
[2016-12-05] MEDS: Levothyroxine 25 MCG TAB PO SCH (06:32)
[2016-12-05] MEDS: Pantoprazole 40 mg EC Tab PO SCH (11:07)
[2016-12-05] MEDS: Metoprolol Succinate 100 mg XL Tab PO SCH (11:07)
[2016-12-05] MEDS: HYDROmorphone 0.5 mg/0.5 ml ISec IVP PRN (11:10)
--- NOTE | 2016-12-05 11:23 | CP.PCM.PN ---
Subjective - Date & Time of Evaluation Date of Evaluation: 12/05/16 Time of Evaluation: 10:40 - Subjective Subjective: clinically same Objective - Vital Signs/Intake and Output Vital Signs (last 24 hours): Temp Pulse Resp BP Pulse Ox 98.3 F 77 18 153/93 H 97 12/05/16 07:25 12/05/16 07:25 12/05/16 07:25 12/05/16 07:25 12/05/16 07:25 Intake and Output: 12/05/16 12/05/16 06:59 18:59 Intake Total 910 Output Total 550 Balance 360 - Medications Medications: Current Medications Amlodipine Besylate (Norvasc) 5 mg PO DAILY [facility] Last Admin: 12/05/16 11:08 Dose: 5 mg Glipizide (Glucotrol) 5 mg PO BID [facility] Last Admin: 12/05/16 11:07 Dose: 5 mg Hydrochlorothiazide (Microzide) 12.5 mg PO DAILY [facility] Last Admin: 12/05/16 11:07 Dose: 12.5 mg Hydromorphone HCl (Dilaudid) 1 mg IVP Q8H PRN PRN Reason: Pain, severe (8-10) Last Admin: 12/05/16 11:10 Dose: 1 mg Ciprofloxacin (Cipro 400mg/200ml Dsw) 400 mg in 200 mls @ 133 mls/hr IVPB Q12H [facility] Last Admin: 12/05/16 02:15 Dose: 133 mls/hr Levothyroxine Sodium (Synthroid) 25 mcg PO DAILY@0630 [facility] Last Admin: 12/05/16 06:32 Dose: 25 mcg Losartan Potassium (Cozaar) 100 mg PO DAILY [facility] Last Admin: 12/05/16 11:07 Dose: 100 mg Metformin HCl (Glucophage) 1,000 mg PO BID [facility] Last Admin: 12/05/16 11:07 Dose: 1,000 mg Metoprolol Succinate (Toprol Xl) 100 mg PO DAILY [facility] Last Admin: 12/05/16 11:07 Dose: 100 mg Ondansetron HCl (Zofran Inj) 4 mg IVP Q6H PRN PRN Reason: Nausea/Vomiting Last Admin: 12/02/16 19:48 Dose: 4 mg Pantoprazole Sodium (Protonix Ec Tab) 40 mg PO DAILY [facility] Last Admin: 12/05/16 11:07 Dose: 40 mg Rosuvastatin Calcium (Crestor) 10 mg PO HS [facility] Last Admin: 12/04/16 22:07 Dose: 10 mg Sucralfate (Carafate Tab) 1 gm PO TIDAC [facility] Last Admin: 12/05/16 06:32 Dose: 1 gm Tamsulosin HCl (Flomax) 0.4 mg PO DAILY [facility] Last Admin: 12/05/16 11:07 Dose: 0.4 mg - Labs Labs: 12/02/16 07:06 12/02/16 07:06 PT 11.6 SECONDS (9.7-12.2) 11/29/16 04:47 INR 1.0 11/29/16 04:47 APTT 31 SECONDS (21-34) 11/29/16 04:47 - Constitutional Appears: Well - Head Exam Head Exam: ATRAUMATIC, NORMAL INSPECTION, NORMOCEPHALIC - Eye Exam Eye Exam: EOMI, Normal appearance, PERRL Pupil Exam: NORMAL ACCOMODATION, PERRL - ENT Exam ENT Exam: Mucous Membranes Moist, Normal Exam - Neck Exam Neck Exam: Full ROM, Normal Inspection. absent: Lymphadenopathy - Respiratory Exam Respiratory Exam: Decreased Breath Sounds - Cardiovascular Exam Cardiovascular Exam: REGULAR RHYTHM, +S1, +S2 - GI/Abdominal Exam GI & Abdominal Exam: Soft, Diminished Bowel Sounds - Rectal Exam Rectal Exam: Deferred
[2016-12-05 17:01] VITALS: RESP 20
--- NOTE | 2016-12-06 00:15 | OP ---
PROCEDURE DATE: 12/01/2016 PREOPERATIVE DIAGNOSES: 1. Hematuria. 2. Urinary retention. POSTOPERATIVE DIAGNOSES: 1. Hematuria. 2. Urinary retention. 3. Enlarged prostate. 4. Bleeding of prostatic origin. 5. Left hydronephrosis. 6. Hemorrhagic cystitis. 7. Tortuous and medially deviated course of left distal ureter. 8. Mild left hydronephrosis, not corresponding to the CT scan. PROCEDURES: 1. Cystogram. 2. Cystoscopy. 3. Fulguration of prostatic bleeding. 4. Left retrograde pyelogram. 5. Insertion of left ureteral stent. OPERATING SURGEON: Arleth Martinez MD PROCEDURE IN DETAIL: As follows; the patient was placed in lithotomy position. Anesthesia was provided by the anesthesiologist. The genitalia were prepped and draped sterilely. Procedure was performed under video endoscopic control as well as under fluoroscopic control. A 22-Libyan cystoscope sheath was introduced under direct vision. 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 The prostatic urethra was occlusive secondary to lateral lobe hypertrophy. In addition, there was middle lobe hypertrophy. There was marked inflammation of the bladder. There was marked inflammation prostatic urethra. There was contact bleeding from the surface of the prostate. The bleeding from the prostate was impairing view of the bladder. Fulguration of the prostate was performed with ball electrode and electrocautery. The bladder was further inspected. There was no bladder tumor. There was no bladder stone. There was hemorrhagic cystitis. The left ureteral orifice was located. Left ureteral orifice was able to be cannulated with a guidewire using the Phillips angle-tipped catheter. The guidewire was advanced into the distal ureter. There was much tortuosity in the distal ureter with a medially deviated left distal ureter. Using the open-ended catheter and as well as the guidewire, the guidewire was able to be advanced proximally up to level of the kidney. Iodinated contrast was instilled. There was noted to be dilation of the collecting system. There was some extravasation immediately noted. The guidewire was reinserted. A 6-Libyan multi-length stent was inserted over the guidewire. Proper stent position was confirmed with fluoroscopy and endoscopy. The bladder was reinspected with 70-degree lens. There was noted to be marked bladder trabeculation. There was no bladder diverticulum identified. There was prostatic hypertrophy. There was no bladder tumor or stone identified. Cystoscope sheath removed. Lord catheter was inserted. Cystogram was performed. Iodinated contrast was instilled. Proper catheter position was confirmed on the cystography. The Lord catheter was left to straight drainage. Rectal examination was performed. Prostate was enlarged. Prostate was approximately over the greater than 15 g in size. Prostate was firm and smooth without fixation, induration or nodularity. Prostate was symmetric. There was no abnormal pelvic mass fixation or induration. The patient was returned to the supine position. The patient tolerated the procedure without complication. Arleth Martinez MD cc: Patient's chart and Arleth Martinez MD.
[2016-12-06] MEDS: Ciprofloxacin 400mg/200ml D5W 400 MG/200 ML BAG IVPB SCH ×2 (02:22→14:25)
--- NOTE | 2016-12-06 02:31 | CON ---
DATE: 12/01/2016 Urology consultation was requested by Dr. Reid Stein. Urology consultation was filled by Dr. Arleth Martinez. REASON FOR CONSULTATION: 1. Hematuria. 2. Urinary retention. HISTORY OF PRESENT ILLNESS: Patient is in otherwise fair health. The patient is having sexual male who developed hematuria and urinary retention. The patient has history of hypertension and diabetes. The patient's medications include amlodipine, Lovenox, Glucotrol, hydrochlorothiazide, Cipro, Synthroid, losartan, metformin, metoprolol, Crestor, Flomax, and Protonix. The patient presented to the emergency room on 11/29. He presents with a 1-day history of urinary retention. The patient had a Lord catheter inserted. 550 mL of urine drained. The patient reports that he did not have hematuria prior to his catheterization. Additionally, the patient had previously been treated with Coumadin for atrial fibrillation. The patient has history of coronary artery disease. The patient has history of previous angioplasty with coronary artery stent insertion. The patient reports no history of previous urologic surgery. The patient usually voids with fair to slow urinary stream. The patient reports nocturia. He reports good urinary control. PHYSICAL EXAMINATION: GENERAL: The patient is a well-developed, well-nourished elderly male. The patient is awake and alert. ABDOMEN: Soft, nontender, nondistended. No mass or organomegaly. BACK: No CVA tenderness. HEART: Irregular rhythm. LUNGS: Clear. GENITALIA: Normal male. Scrotal contents without inflammation. The urine is clear via the Lord catheter. LABORATORY DATA: See attached reports. On admission, BUN 22, creatinine 1.1. BUN is 22, creatinine 1.4. White blood count 13,000, hematocrit 40.6, platelet count of 141,000. Glucose on admission 247. EKG reveals atrial fibrillation. IMPRESSION: A 76-year-old male with urinary retention. Etiology retention may be due to bladder outlet obstruction, namely prostatic disease. Less likely is urethral stricture in view of the presence of the Lord catheter which was passed without reported difficulty. The etiology may be decreased detrusor function. The patient include hematuria. Hematuria maybe due to catheterization. Other possibilities include infection, urolithiasis, and/or neoplasia. The patient has other medical problems include hypertension, diabetes, atrial fibrillation. The patient previously took Coumadin. ADDENDUM: CT scan reveals left hydronephrosis. Mild right periureteric stranding. Right renal cyst. No renal stone. Enlarged prostate. Also noted on the CT scan is possible right middle lobe infiltrates. RECOMMENDATIONS AND PLAN: Monitor INR. CT scan. Urine culture. Urine cytology. Serum PSA. Catheter in place. Possible cystoscopy and retrograde pyelogram to follow. Further therapy to follow according to results of above as well as the patient's clinical course. Thank you for recommending patient for urology consultation. Arleth Martinez MD cc: Patient's chart and MD Reid Leung MD
[2016-12-06] MEDS: HYDROmorphone 0.5 mg/0.5 ml ISec IVP PRN (03:35)
[2016-12-06] MEDS ORDERED: Bacitracin 500 Units/gm Oint Foilpak UD TOP ONE ×2 (05:55→21:52)
[2016-12-06] MEDS: Levothyroxine 25 MCG TAB PO SCH (06:34)
[2016-12-06] MEDS: Pantoprazole 40 mg EC Tab PO SCH (09:19)
[2016-12-06] MEDS: Metoprolol Succinate 100 mg XL Tab PO SCH (09:19)
--- NOTE | 2016-12-06 10:41 | PCM.URO ---
Urology Progress Note - General General: No Complaints, Tolerating Diet - Subjective Abdominal Pain: No Flank Pain: No Nausea: No Vomiting: No Voiding Well: No (cathetr in place) Hematuria: Yes (mild, via paulson) Dsypnea: No Chest Pain: No Fever & Chills: No - Objective Lab Studies: Reviewed (psa=23.5 urine culture negative) Lab Results Last 24 Hours: Laboratory Results - last 24 hr 12/05/16 12/05/16 12/05/16 11:16 17:21 21:40 POC Glucose (mg/dL) 204 H 170 H 193 H 12/06/16 06:28 POC Glucose (mg/dL) 201 H Intake & Output: Intake & Output 12/05/16 12/06/16 12/06/16 18:59 06:59 18:59 Intake Total 1060 1060 Output Total 1000 1250 Balance 60 -190 Intake: Intake, IV Amount 260 260 Right Antecubital 260 260 Oral 800 800 Output: Urine 1000 1250 Urethral (Paulson) 1000 1250 Vital Signs: Vital Signs - 24 hr 12/05/16 12/05/16 12/06/16 17:00 23:45 07:50 Temperature 97.9 F 98 F 97.2 F L Pulse Rate 80 76 101 H Respiratory 20 20 20 Rate Blood Pressure 126/75 157/97 H 151/86 H O2 Sat by Pulse 96 96 97 Oximetry - Physical Exam Abdominal Exam: Soft, Non-Tender, Non-Distended Back: No CVA Tenderness Genitalia: Without Inflammation Urinary Catheter Draining Well: Yes Urine Color: [place] - Male Phallus: Normal, Uncircumcised Scrotum: Normal Testes: Normal: Bilateral - Plan Catheter Care: Yes Ambulation - Out of Bed: Yes Intake & Output: Yes Additional Information: Imp: stable p cysto. retention. bph. hydronephrosis. P/rec: catheter in place. Elevated psa. review xrays. consider repeat CT scan. trial of voiding t/f. rec - OOB to chair
--- NOTE | 2016-12-06 15:56 | CP.PCM.PN ---
Subjective - Date & Time of Evaluation Date of Evaluation: 12/06/16 Time of Evaluation: 11:20 - Subjective Subjective: clinically same Objective - Vital Signs/Intake and Output Vital Signs (last 24 hours): Temp Pulse Resp BP Pulse Ox 97.2 F L 101 H 20 151/86 H 97 12/06/16 07:50 12/06/16 07:50 12/06/16 07:50 12/06/16 07:50 12/06/16 07:50 Intake and Output: 12/06/16 12/06/16 06:59 18:59 Intake Total 1060 Output Total 1250 Balance -190 - Medications Medications: Current Medications Amlodipine Besylate (Norvasc) 5 mg PO DAILY [facility] Last Admin: 12/06/16 09:19 Dose: 5 mg Glipizide (Glucotrol) 5 mg PO BID [facility] Last Admin: 12/06/16 09:19 Dose: 5 mg Hydrochlorothiazide (Microzide) 12.5 mg PO DAILY [facility] Last Admin: 12/06/16 09:19 Dose: 12.5 mg Hydromorphone HCl (Dilaudid) 1 mg IVP Q8H PRN PRN Reason: Pain, severe (8-10) Last Admin: 12/06/16 03:35 Dose: 1 mg Ciprofloxacin (Cipro 400mg/200ml Dsw) 400 mg in 200 mls @ 133 mls/hr IVPB Q12H [facility] Last Admin: 12/06/16 14:25 Dose: 133 mls/hr Levothyroxine Sodium (Synthroid) 25 mcg PO DAILY@0630 [facility] Last Admin: 12/06/16 06:34 Dose: 25 mcg Losartan Potassium (Cozaar) 100 mg PO DAILY [facility] Last Admin: 12/06/16 09:18 Dose: 100 mg Metformin HCl (Glucophage) 1,000 mg PO BID [facility] Last Admin: 12/06/16 09:18 Dose: 1,000 mg Metoprolol Succinate (Toprol Xl) 100 mg PO DAILY [facility] Last Admin: 12/06/16 09:19 Dose: 100 mg Ondansetron HCl (Zofran Inj) 4 mg IVP Q6H PRN PRN Reason: Nausea/Vomiting Last Admin: 12/02/16 19:48 Dose: 4 mg Pantoprazole Sodium (Protonix Ec Tab) 40 mg PO DAILY [facility] Last Admin: 12/06/16 09:19 Dose: 40 mg Rosuvastatin Calcium (Crestor) 10 mg PO HS [facility] Last Admin: 12/05/16 23:47 Dose: 10 mg Sucralfate (Carafate Tab) 1 gm PO TIDAC [facility] Last Admin: 12/06/16 11:30 Dose: 1 gm Tamsulosin HCl (Flomax) 0.4 mg PO DAILY [facility] Last Admin: 12/06/16 09:18 Dose: 0.4 mg - Labs Labs: 12/02/16 07:06 12/02/16 07:06 PT 11.6 SECONDS (9.7-12.2) 11/29/16 04:47 INR 1.0 11/29/16 04:47 APTT 31 SECONDS (21-34) 11/29/16 04:47 - Constitutional Appears: Well - Head Exam Head Exam: ATRAUMATIC, NORMAL INSPECTION, NORMOCEPHALIC - Eye Exam Eye Exam: EOMI, Normal appearance, PERRL Pupil Exam: NORMAL ACCOMODATION, PERRL - ENT Exam ENT Exam: Mucous Membranes Moist, Normal Exam - Neck Exam Neck Exam: Full ROM, Normal Inspection. absent: Lymphadenopathy - Respiratory Exam Respiratory Exam: Decreased Breath Sounds - Cardiovascular Exam Cardiovascular Exam: REGULAR RHYTHM, +S1, +S2 - GI/Abdominal Exam GI & Abdominal Exam: Soft, Diminished Bowel Sounds - Rectal Exam Rectal Exam: Deferred
[2016-12-07] MEDS: HYDROmorphone 0.5 mg/0.5 ml ISec IVP PRN (02:09)
[2016-12-07] MEDS: Ciprofloxacin 400mg/200ml D5W 400 MG/200 ML BAG IVPB SCH ×2 (02:13→15:00)
[2016-12-07] MEDS: Levothyroxine 25 MCG TAB PO SCH (05:42)
[2016-12-07] MEDS: Pantoprazole 40 mg EC Tab PO SCH (09:49)
[2016-12-07] MEDS: Metoprolol Succinate 100 mg XL Tab PO SCH (09:49)
[2016-12-07] MEDS ORDERED: HYDROmorphone 1 mg/ml ISec IM PRN (19:54)
--- NOTE | 2016-12-07 20:11 | CP.PCM.PN ---
Subjective - Date & Time of Evaluation Date of Evaluation: 12/07/16 Time of Evaluation: 11:00 - Subjective Subjective: clinically same Objective - Vital Signs/Intake and Output Vital Signs (last 24 hours): Temp Pulse Resp BP Pulse Ox 97.5 F L 77 20 156/86 H 98 12/07/16 15:00 12/07/16 15:00 12/07/16 15:00 12/07/16 15:00 12/07/16 15:00 - Medications Medications: Current Medications Amlodipine Besylate (Norvasc) 5 mg PO DAILY [facility] Last Admin: 12/07/16 09:48 Dose: 5 mg Ciprofloxacin (Cipro) 500 mg PO BID [facility] Glipizide (Glucotrol) 5 mg PO BID [facility] Last Admin: 12/07/16 18:54 Dose: 5 mg Hydrochlorothiazide (Microzide) 12.5 mg PO DAILY [facility] Last Admin: 12/07/16 09:48 Dose: 12.5 mg Hydromorphone HCl (Dilaudid) 1 mg IM Q8H PRN PRN Reason: pain Levothyroxine Sodium (Synthroid) 25 mcg PO DAILY@0630 [facility] Last Admin: 12/07/16 05:42 Dose: 25 mcg Losartan Potassium (Cozaar) 100 mg PO DAILY [facility] Last Admin: 12/07/16 09:48 Dose: 100 mg Metformin HCl (Glucophage) 1,000 mg PO BID [facility] Last Admin: 12/07/16 18:54 Dose: 1,000 mg Metoprolol Succinate (Toprol Xl) 100 mg PO DAILY [facility] Last Admin: 12/07/16 09:49 Dose: 100 mg Ondansetron HCl (Zofran Inj) 4 mg IVP Q6H PRN PRN Reason: Nausea/Vomiting Last Admin: 12/02/16 19:48 Dose: 4 mg Pantoprazole Sodium (Protonix Ec Tab) 40 mg PO DAILY [facility] Last Admin: 12/07/16 09:49 Dose: 40 mg Rosuvastatin Calcium (Crestor) 10 mg PO HS [facility] Last Admin: 12/06/16 22:20 Dose: 10 mg Sucralfate (Carafate Tab) 1 gm PO TIDAC [facility] Last Admin: 12/07/16 17:42 Dose: 1 gm Tamsulosin HCl (Flomax) 0.4 mg PO DAILY [facility] Last Admin: 12/07/16 10:00 Dose: 0.4 mg - Labs Labs: 12/02/16 07:06 12/02/16 07:06 PT 11.6 SECONDS (9.7-12.2) 11/29/16 04:47 INR 1.0 11/29/16 04:47 APTT 31 SECONDS (21-34) 11/29/16 04:47
[2016-12-08] MEDS: Levothyroxine 25 MCG TAB PO SCH (06:37)
[2016-12-08] MEDS: Metoprolol Succinate 100 mg XL Tab PO SCH (09:10)
[2016-12-08] MEDS: Pantoprazole 40 mg EC Tab PO SCH (09:10)
--- NOTE | 2016-12-08 09:55 | PCM.URO ---
Urology Progress Note - General General: Tolerating Diet - Subjective Abdominal Pain: No Flank Pain: No Nausea: No Vomiting: No Hematuria: No Dsypnea: No Chest Pain: No Fever & Chills: No - Objective Lab Results Last 24 Hours: Laboratory Results - last 24 hr 12/07/16 12/07/16 12/07/16 12:04 16:30 21:17 POC Glucose (mg/dL) 259 H 334 H 225 H 12/08/16 06:43 POC Glucose (mg/dL) 112 H Intake & Output: Intake & Output 12/07/16 12/08/16 12/08/16 18:59 06:59 18:59 Intake Total 600 Output Total 1100 Balance -500 Intake: Oral 600 Output: Urine 1100 Urethral (Lord) 1100 Vital Signs: Vital Signs - 24 hr 12/07/16 12/07/16 12/08/16 15:00 23:40 08:25 Temperature 97.5 F L 97.9 F 97.6 F Pulse Rate 77 71 84 Respiratory 20 20 20 Rate Blood Pressure 156/86 H 143/82 157/84 H O2 Sat by Pulse 98 96 96 Oximetry - Physical Exam Abdominal Exam: Soft, Non-Tender, Non-Distended Back: No CVA Tenderness Genitalia: Without Inflammation Urinary Catheter Draining Well: Yes Urine Color: Clear, Yellow - Male Phallus: Normal, Uncircumcised - Plan Catheter Care: Yes Additional Information: IMP: urinary retention. elevated psa. hydronephrosis. rec/plan: CT scan abd/pelvis, no contrast. repeat psa. tamsulosin. catheter in place. trial of voiding t/f. Pt is possibly scheduled for transger to rehab facility. If so, please have catheter removal on Tuesday.
--- NOTE | 2016-12-08 12:28 | CT ---
PROCEDURE: CT Abdomen and Pelvis without Oral or IV contrast. HISTORY: hydronephrosis COMPARISON: CT abdomen and pelvis without contrast performed 11/29/16 TECHNIQUE: Contiguous axial images of the abdomen and pelvis. No oral or IV contrast administered. Coronal and Sagittal reformats generated and reviewed. Radiation dose: Total exam DLP = 1215.70 mGy-cm. This CT exam was performed using one or more of the following dose reduction techniques: Automated exposure control, adjustment of the mA and/or kV according to patient size, and/or use of iterative reconstruction technique. FINDINGS: There is limited evaluation of the solid organs without the administration of IV contrast. LOWER THORAX: Middle and bilateral lower lobe consolidation. Small right greater than left pleural effusions. No pneumothorax. Dense coronary artery calcifications. Partially imaged cardiomegaly. LIVER: Unremarkable unenhanced appearance. GALLBLADDER AND BILE DUCTS: Unremarkable unenhanced appearance. PANCREAS: Unremarkable unenhanced appearance. SPLEEN: Splenomegaly. Geographic decreased attenuation involving the upper spleen. ADRENALS: Bilateral nodular adrenal gland hyperplasia. KIDNEYS AND URETERS: Interval placement of left ureteral stent. Severe left hydronephrosis with a thin rim of remaining cortex. No hydroureter. 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 Punctate calcification in lower pole left kidney, nonspecific. No right hydronephrosis. Right lower pole renal cyst approximately 3.1 cm. Mid right renal cortical cyst approximately 7.4 cm, with irregular curvilinear peripheral calcification. BLADDER: Lord catheter within the urinary bladder. Urinary bladder wall appears thick walled. Focus of air within the urinary bladder may be secondary to instrumentation. REPRODUCTIVE: The prostate gland measures approximately 6.8 x 7.8 cm. APPENDIX: The appendix appears within normal limits of caliber. No secondary signs of acute appendicitis. BOWEL: The stomach is nondistended. Lack of oral contrast limits evaluation for bowel pathology. The bowel loops appear within normal limits of caliber without evidence of intestinal obstruction. PERITONEUM: No significant free fluid. No definite free air. LYMPH NODES: No bulky lymphadenopathy identified. VASCULATURE: No aortic aneurysm. BONES: Osseous demineralization. Degenerative changes. 5 mm L3 sclerotic focus. OTHER FINDINGS: Small [id number]-[id number]-right fat containing inguinal hernias. IMPRESSION: Middle and bilateral lower lobe consolidation. Small right greater than left pleural effusions. Dense coronary artery calcifications. Partially imaged cardiomegaly. Splenomegaly. Geographic decreased attenuation involving the upper spleen. Interval placement of left ureteral stent. Severe left hydronephrosis with a thin rim of remaining cortex.Punctate calcification in lower pole left kidney, nonspecific. Large right renal cysts including 7.4 cm left lower pole cyst with irregular curvilinear peripheral calcification. Recommend correlation with ultrasound examination. Lord catheter within the urinary bladder. Urinary bladder wall appears thick walled. Focus of air within the urinary bladder may be secondary to instrumentation. Bilateral nodular adrenal gland hyperplasia. Enlarged prostate gland. Recommend correlation with PSA. Additional findings as above.
[2016-12-08 15:44] VITALS: BP 131/74; PULSE 81; TEMP 97.7; O2SAT 98
--- NOTE | 2016-12-08 16:40 | CP.PCM.PN ---
Subjective - Date & Time of Evaluation Date of Evaluation: 12/08/16 Time of Evaluation: 16:40 - Subjective Subjective: Alert, oriented,no sob or abdominal pains. Lord draining clear urine. Objective - Vital Signs/Intake and Output Vital Signs (last 24 hours): Temp Pulse Resp BP Pulse Ox 97.7 F 81 20 131/74 98 12/08/16 15:42 12/08/16 15:42 12/08/16 15:42 12/08/16 15:42 12/08/16 15:42 Intake and Output: 12/08/16 12/08/16 06:59 18:59 Intake Total 600 Output Total 1100 Balance -500 - Medications Medications: Current Medications Amlodipine Besylate (Norvasc) 5 mg PO DAILY [facility] Last Admin: 12/08/16 09:10 Dose: 5 mg Ciprofloxacin (Cipro) 500 mg PO BID [facility] Last Admin: 12/08/16 09:09 Dose: 500 mg Glipizide (Glucotrol) 5 mg PO BID [facility] Last Admin: 12/08/16 09:10 Dose: 5 mg Hydrochlorothiazide (Microzide) 12.5 mg PO DAILY [facility] Last Admin: 12/08/16 09:10 Dose: 12.5 mg Hydromorphone HCl (Dilaudid) 1 mg IM Q8H PRN PRN Reason: pain Last Admin: 12/08/16 12:54 Dose: 1 mg Levothyroxine Sodium (Synthroid) 25 mcg PO DAILY@0630 [facility] Last Admin: 12/08/16 06:37 Dose: 25 mcg Losartan Potassium (Cozaar) 100 mg PO DAILY [facility] Last Admin: 12/08/16 09:10 Dose: 100 mg Metformin HCl (Glucophage) 1,000 mg PO BID [facility] Last Admin: 12/08/16 09:10 Dose: 1,000 mg Metoprolol Succinate (Toprol Xl) 100 mg PO DAILY [facility] Last Admin: 12/08/16 09:10 Dose: 100 mg Ondansetron HCl (Zofran Inj) 4 mg IVP Q6H PRN PRN Reason: Nausea/Vomiting Last Admin: 12/02/16 19:48 Dose: 4 mg Pantoprazole Sodium (Protonix Ec Tab) 40 mg PO DAILY [facility] Last Admin: 12/08/16 09:10 Dose: 40 mg Rosuvastatin Calcium (Crestor) 10 mg PO HS [facility] Last Admin: 12/07/16 22:58 Dose: 10 mg Sucralfate (Carafate Tab) 1 gm PO TIDAC [facility] Last Admin: 12/08/16 11:42 Dose: 1 gm Tamsulosin HCl (Flomax) 0.4 mg PO DAILY [facility] Last Admin: 12/08/16 09:10 Dose: 0.4 mg - Labs Labs: 12/02/16 07:06 12/02/16 07:06 PT 11.6 SECONDS (9.7-12.2) 11/29/16 04:47 INR 1.0 11/29/16 04:47 APTT 31 SECONDS (21-34) 11/29/16 04:47 Assessment and Plan - Assessment and Plan (Free Text) Assessment: Patient is seen and examined. Alert and oriented, no complaints of pain noted. Dr evans cleared for discharge with khurram, will be removed on Tuesday. D/W DR Kenya Stein, discharge plan for Dipak Parsons today, made patient aware.
[2016-12-09 22:18] LABS: ESTIM. PROBABILITY CANCER >50 Percent; TOTAL PSA 11.8 ng/mL (<=4.0)
== END 2016-12-08 18:20 | DRG 717 ==
LOC: C.ER 03:45 → C.9E 05:48 → C.6T 17:31
PROVIDERS: ADMIT Internal Medicine Nephrology; ATTEND Internal Medicine Nephrology
PROC: 0T778DZ Dilation of Left Ureter with Intraluminal Device, Via Natural or Artificial Opening Endoscopic (ICD-10-PCS; 2016-12-01)
PROC: BT1F1ZZ Fluoroscopy of Left Kidney, Ureter and Bladder using Low Osmolar Contrast (ICD-10-PCS; 2016-12-01)
PROC: 0W3R8ZZ Control Bleeding in Genitourinary Tract, Via Natural or Artificial Opening Endoscopic (ICD-10-PCS; principal; 2016-12-01 09:45)
DX: N40.1 Benign prostatic hyperplasia with lower urinary tract symptoms (principal); N13.30 Unspecified hydronephrosis; I48.91 Unspecified atrial fibrillation; N13.8 Other obstructive and reflux uropathy; E11.9 Type 2 diabetes mellitus without complications; N30.91 Cystitis, unspecified with hematuria; R33.8 Other retention of urine; E78.00 Pure hypercholesterolemia, unspecified; G89.29 Other chronic pain; M25.561 Pain in right knee; I10 Essential (primary) hypertension; I25.10 Atherosclerotic heart disease of native coronary artery without angina pectoris; N28.1 Cyst of kidney, acquired; R79.1 Abnormal coagulation profile; Z79.01 Long term (current) use of anticoagulants; Z95.5 Presence of coronary angioplasty implant and graft; Z79.84 Long term (current) use of oral hypoglycemic drugs

== ENCOUNTER 2018-01-16 06:02 | Inpatient (IN) | payer MEDICARE, OTHER ==
[2018-01-16 06:03] VITALS: BMI 36.9
[2018-01-16 07:13] LABS: BASO # 0.1 K/uL (0.0-0.2); EOS # 0.9 K/uL (0.0-0.7); NEUT # 8.2 K/uL (1.8-7.0); WHITE BLOOD COUNT 12.1 K/uL (4.8-10.8)
[2018-01-16 07:17] LABS: BASO % 0.7 % (0.0-2.0); LYMPH % 16.5 % (20.0-40.0); MEAN CORPUSCULAR HEMOGLOBIN 31.8 pg (27.0-31.0); MEAN CORPUSCULAR HGB CONC 34.1 g/dL (33.0-37.0); MEAN PLATELET VOLUME 7.1 fL (7.2-11.7); NEUT % 67.8 % (50.0-75.0); RBC 1.76 Mil/uL (4.40-5.90); RED CELL DISTRIBUTION WIDTH 16.6 % (11.5-14.5)
--- NOTE | 2018-01-16 07:17 | C.PDOC ---
History Of Present Illness 77 yo male, hx of afib on warfarin, presnets fall. pt states he fell 8 days ago "while going to the bathroom". pt yarelis head injury. did not seek medical attention at that time. c/o of pain and swelling to right leg. pt states does not ambulate at baseline. no other complaints. Time Seen by Provider: 01/16/18 07:06 Chief Complaint (Nursing): Lower Extremity Problem/Injury Past Medical History Reviewed: Historical Data, Nursing Documentation, Vital Signs Vital Signs: Last Vital Signs Temp 98.9 F 01/16/18 06:15 Pulse 104 H 01/16/18 06:15 Resp 20 01/16/18 06:15 BP 148/78 01/16/18 06:15 Pulse Ox 98 01/16/18 06:15 - Medical History PMH: Atrial Fibrillation, CAD, Diabetes, HTN, Hypercholesterolemia Denies: Arthritis, CHF, COPD, HIV, Hypothyroidism, Chronic Kidney Disease, Rheumatoid Arthritis Surgical History: Coronary Stent - [facility] Procedures CONTROL BLEEDING IN GENITOURINARY TRACT, ENDO (11/29/16) DILATION OF LEFT URETER WITH INTRALUMINAL DEVICE, ENDO (11/29/16) FLUOROSCOPY KIDNEY, URETER, BLADDER, L W L OSM CONTRAST (11/29/16) TRANSFUSE NONAUT RED BLOOD CELLS IN PERIPH VEIN, PERC (06/06/15) Family History: States: Unknown Family Hx - Social History Hx Alcohol Use: No Hx Substance Use: No - Immunization History Hx Tetanus Toxoid Vaccination: No Hx Influenza Vaccination: No Hx Pneumococcal Vaccination: No Review Of Systems Musculoskeletal: Positive for: Leg Pain Physical Exam - Physical Exam Appears: Well, No Acute Distress Skin: Normal Color, Warm, Dry Eye(s): bilateral: Normal Inspection, PERRL, EOMI Nose: Normal Throat: Normal Neck: Normal Cardiovascular: Rhythm Regular Respiratory: Normal Breath Sounds Gastrointestinal/Abdominal: Normal Exam Back: Normal Inspection Extremity: Normal ROM, Tenderness (right leg), Swelling (right leg) ED Course And Treatment - Laboratory Results Result Diagrams: 01/16/18 07:07 01/16/18 07:07 O2 Sat by Pulse Oximetry: 98 Critical Care Time - Critical Care Note Total Time (in mins): 60 Documented critical care: time excludes all time spent performing seperately billable procedures. Medical Decision Making Medical Decision Making: sp fall. pt poor historian. ro fracture. ekg afib 112, non specific st t wave chagnes initial plain films neg. noted anemia guiac neg. ct added. ct later shows large hematoma. pt with supratherapeutic inr. ffp vit k prbc ordered. discussed with ortho dr cook. will eval pt. at this time, supportive measures, monitoring, no fasciotomy. accpeted dr parks and dr cox icu. rn notified to adjust f shahzad Disposition - Disposition Disposition: HOSPITALIZED Disposition Time: 15:40 Condition: CRITICAL - Clinical Impression Clinical Impression: Anemia, Acute kidney injury, Leg hematoma
[2018-01-16 07:20] LABS: HEMOGLOBIN 5.6 g/dL (12.0-18.0); MEAN CELL VOLUME 93.3 fL (80.0-94.0)
[2018-01-16 07:26] LABS: ALBUMIN 3.7 g/dL (3.5-5.0); CALCIUM 9.2 mg/dl (8.6-10.4)
[2018-01-16 07:39] LABS: INR 4.1; PROTHROMBIN TIME 44.6 SECONDS (9.7-12.2)
[2018-01-16] MEDS ORDERED: Morphine 4 MG/ML VIAL ONE ×2 (08:13→12:01)
[2018-01-16 08:48] LABS: TROPONIN I 0.041 ng/mL (0.00-0.120)
--- NOTE | 2018-01-16 09:01 | RAD ---
PROCEDURE: Radiographs of the pelvis and bilateral hips HISTORY: trauma COMPARISON: None. FINDINGS: BONES: Pelvis: Unremarkable. Right hip:Unremarkable. Left hip:Unremarkable. JOINTS: Right hip: Unremarkable. Left hip: Unremarkable. Sacroiliac Joints: Unremarkable. Pubic symphysis: Unremarkable. SOFT TISSUES: Normal. OTHER FINDINGS: Left ureteral stent noted. IMPRESSION: No evidence of fracture or dislocation
--- NOTE | 2018-01-16 09:02 | RAD ---
Date of service: 01/16/2018 PROCEDURE: Right Femur Radiographs. HISTORY: trauma COMPARISON: None. TECHNIQUE: AP and Lateral Radiographs of the right femur. FINDINGS: FEMUR: Limited examination consists of single view of right femur done in 2 segments. No fracture. No lytic or blastic osseous lesion. SOFT TISSUES: Normal. OTHER FINDINGS: None. IMPRESSION: Normal limited examination
--- NOTE | 2018-01-16 09:07 | RAD ---
Date of service: 01/16/2018 PROCEDURE: Radiographs of the right tibia and fibula. HISTORY: trauma COMPARISON: None available TECHNIQUE: Frontal and lateral views obtained. FINDINGS: BONES: No fracture or destructive lesion. JOINT SPACES: Unremarkable. OTHER FINDINGS: None. IMPRESSION: Unremarkable radiographs of the right tibia and fibula.
--- NOTE | 2018-01-16 09:08 | RAD ---
Date of service: 01/16/2018 PROCEDURE: Right Ankle Radiographs. HISTORY: trauma COMPARISON: None available. FINDINGS: BONES: No acute fracture. Plantar calcaneal spur incidentally noted. JOINTS: Normal. No osteoarthritis. Ankle mortise maintained. Talar dome intact SOFT TISSUES: Normal. OTHER FINDINGS: None. IMPRESSION: No acute fracture.
--- NOTE | 2018-01-16 09:18 | RAD ---
Chest x-ray single frontal view History: Fall. Comparison: 11/29/2016 Findings: Mild venous congestion. Patchy consolidative changes at both lung bases. Cardiomegaly. Enlarged ectatic aorta. Atherosclerotic calcification at the aortic knob. Scattered nodular densities at the lung bases. Degenerative changes in the spine and shoulders. Impression: Mild venous congestion. Patchy consolidative changes at both lung bases. Cardiomegaly. Enlarged ectatic aorta. Atherosclerotic calcification at the aortic knob. Scattered nodular densities at the lung bases. If there is concern for osseous and or rib injury, correlation with chest CT would be helpful.
--- NOTE | 2018-01-16 10:04 | RAD ---
Date of service: 01/16/2018 PROCEDURE: Right Knee Radiographs. HISTORY: trauma COMPARISON: None. FINDINGS: BONES: Transverse lucency across proximal right tibial metaphysis may reflect nondisplaced fracture. Further evaluation advised. No other fracture identified. There is patchy osteopenia seen most prominently in the distal femoral epiphysis and in the patella. The possibility small lytic metastases or multiple myeloma should be considered. JOINTS: Normal. No osteoarthritis. JOINT EFFUSION: None. OTHER FINDINGS: None. IMPRESSION: Questionable nondisplaced proximal tibial fracture. Further radiographic evaluation advised. Patchy osteopenia about the knee with small ill-defined lytic lesions possibly representing multiple myeloma or small lytic metastases. Further evaluation advised. Consider magnetic resonance imaging.
[2018-01-16] MEDS ORDERED: Phytonadione 10 mg/ml Inj (Adult) IV STA (11:52)
[2018-01-16] MEDS ORDERED: Phytonadione 10 mg/ml Inj (Adult) ONE (12:00)
[2018-01-16] MEDS ORDERED: Morphine 4 MG/ML VIAL IV STA (12:08)
--- NOTE | 2018-01-16 12:37 | CT ---
Date of service: 01/16/2018 PROCEDURE: CT of the Right Hip. HISTORY: Trauma/right hip/upper leg swelling COMPARISON: None available. TECHNIQUE: Contiguous axial images of the lower extremity were obtained from the acetabulum to the distal foot region.. Coronal and sagittal reformats were generated. Radiation dose: Total exam DLP = 1168.97 mGy-cm. This CT exam was performed using one or more of the following dose reduction techniques: Automated exposure control, adjustment of the mA and/or kV according to patient size, and/or use of iterative reconstruction technique. FINDINGS: BONES: Diffuse demineralization of the most pronounced at the level of the distal femur as well as the proximal and distal tibia-fibula. No definitive evidence of acute displaced fracture nor dislocation. Contour. RIGHT HIP JOINT: Minor degenerative osteoarthritis. SOFT TISSUES: There is a large elliptical shaped heterogeneous soft tissue density within the of soft tissues right thigh extending from proximal 1/3--1/2 distally to the level of the metaphyseal region consistent with a large hematoma of likely intramuscular (apparently within the confines of the vastus medialis and intermedius). There is infiltration changes seen in the surrounding concomitants cellulitis cannot be excluded. Infiltration extends into the subcutaneous fat of the tibia and fibula to the level of the ankle. There is a small suprapatellar joint effusion. Vascular calcifications. Incidental note is made of a in situ Lord catheter, the balloon of the within the proximal prostatic urethra. This must be repositioned. A few tiny bubbles of air just adjacent to the distal the tip of the Lord balloon is present possibly outside of the Lord and in the prostatic urethra though few bubbles of air outside the confines of the prostatic urethra not excluded. Enlarged prostate gland likely due to BPH however correlation with PSA recommended to exclude prostatic carcinoma. Vascular calcifications In situ left ureteral stent. IMPRESSION: Large intramuscular hematoma within most of the mid thigh apparently within the vastus medialis and intermedius. There are diffuse infiltration changes seen throughout the subcutaneous tissues of the left thigh extending distally to the level of the ankle region. Findings likely due to edema however the possibility of a cellulitis not excluded. Small suprapatellar joint effusion. No definitive evidence of acute displaced fracture nor dislocation. Mild diffuse demineralization most conspicuous at the level of the distal femur as well proximal and distal tibia/fibula. In situ Lord catheter, the inflated balloon Lord balloon of which located in the prostatic urethra and should be repositioned. See above discussion for additional details. Markedly enlarged prostate gland likely due to BPH however correlation with PSA to exclude prostatic carcinoma. Findings were discussed with Dr. Nieves approximately 12:10 p.m. with written down and read back verification.
--- NOTE | 2018-01-16 14:29 | CP.PCM.CON ---
<Jose Kerr - Last Filed: 01/16/18 18:52> History of Present Illness - History of Present Illness History of Present Illness: PGY-1 ICU consult note for Dr. Workman Patient is a 77 year old male with PMHx of atrial fibrillation on warfarin, HTN, CAD, DM-2, hypothyroidism, and HLD presenting with right leg pain after a fall. He states the he fell 8 days ago while going to the bathroom. Patient denies hitting his head and did not seek medical attention. Patient is complaining of pain and swelling to right leg. He states does not ambulate at baseline. He has a chronic indwelling Lord catheter. Patient denies fevers, chills, cough, headaches, chest pain, shortness of breath, abdominal pain, or urinary symptoms. In ED: Hb/Hct was 5.6/16.4, received 2 units of PRBC. PMD: Kayden Garner PMHx: CAD s/p PCI, hypertension, type 2 diabetes mellitus, HLD, hypothyroidism, chronic atrial fibrillation, chronic indwelling Lord catheter PSHx: Coronary stent PFHx: Denies Allergies: Denies Social Hx: denies tobacco, alcohol, and drug use. Lives with his at home. Medications: Coumadin 2.5mg PO QD, Simvastatin 40mg PO HS, Prilosec 40mg PO QD, Toprol XL 100mg PO QD, Metformin 1000mg PO BID, Losartan-Hctz 100-12.5mg PO QD, Synthroid 25mg PO QD, Glipizide, 5mg PO BID, Norvasc 5mg PO QD Review of Systems - Review of Systems All systems: reviewed and no additional remarkable complaints except Past Patient History - Infectious Disease Hx of Infectious Diseases: None - Past Medical History & Family History Past Medical History?: Yes - Past Social History Smoking Status: Never Smoked - CARDIAC Hx Atrial Fibrillation: Yes Hx Congestive Heart Failure: No Hx Hypercholesterolemia: Yes Hx Hypertension: Yes - PULMONARY Hx Chronic Obstructive Pulmonary Disease (COPD): No - NEUROLOGICAL Hx Neurological Disorder: No - HEENT Hx HEENT Problems: No - RENAL Hx Chronic Kidney Disease: No - ENDOCRINE/METABOLIC Hx Hypothyroidism: No - HEMATOLOGICAL/ONCOLOGICAL Hx Human Immunodeficiency Virus (HIV): No - INTEGUMENTARY Hx Dermatological Problems: No - MUSCULOSKELETAL/RHEUMATOLOGICAL Hx Arthritis: No Hx Rheumatoid Arthritis: No - GASTROINTESTINAL Hx Gastrointestinal Disorders: No - GENITOURINARY/GYNECOLOGICAL Hx Genitourinary Disorders: No - PSYCHIATRIC Hx Substance Use: No - SURGICAL HISTORY Hx Coronary Stent: Yes - ANESTHESIA Hx Anesthesia: Yes Hx Anesthesia Reactions: No Hx Malignant Hyperthermia: No Meds Allergies/Adverse Reactions: Allergies Allergy/AdvReac Type Severity Reaction Status Date / Time No Known Allergies Allergy Verified 01/16/18 06:18 - Medications Medications: Current Medications Sodium Chloride (Sodium Chloride 0.9%) 1,000 mls @ 40 mls/hr IV .Q24H RENA Pantoprazole Sodium (Protonix Inj) 40 mg IVP DAILY RENA Physical Exam - Constitutional Appears: No Acute Distress Additional comments: Appears lethargic - Head Exam Head Exam: ATRAUMATIC, NORMOCEPHALIC - Eye Exam Eye Exam: Normal appearance, PERRL - ENT Exam ENT Exam: Mucous Membranes Moist - Respiratory Exam Respiratory Exam: Clear to Auscultation Bilateral. absent: Accessory Muscle Use, Rales, Rhonchi, Wheezes, Respiratory Distress - Cardiovascular Exam Cardiovascular Exam: Irregular Rhythm, +S1, +S2. absent: Gallop, Rubs, Systolic Murmur - GI/Abdominal Exam GI & Abdominal Exam: Normal Bowel Sounds, Soft. 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 - Extremities Exam Extremities exam: Negative for: calf tenderness, joint swelling - Neurological Exam Neurological exam: Alert, CN II-XII Intact, Oriented x3 - Psychiatric Exam Psychiatric exam: Normal Affect, Normal Mood - Skin Skin Exam: Dry, Intact, Warm Results - Vital Signs Recent Vital Signs: Last Vital Signs Temp 98.1 F 01/16/18 13:30 Pulse 97 H 01/16/18 13:30 Resp 21 01/16/18 13:30 BP 140/86 01/16/18 13:30 Pulse Ox 98 01/16/18 14:01 - Labs Result Diagrams: 01/16/18 07:07 01/16/18 07:07 Labs: Laboratory Results - last 24 hr 01/16/18 01/16/18 01/16/18 06:10 07:07 07:07 WBC 12.1 H RBC 1.76 L Hgb 5.6 L* D Hct 16.4 L MCV 93.3 D MCH 31.8 H MCHC 34.1 RDW 16.6 H Plt Count 426 H D MPV 7.1 L Neut % (Auto) 67.8 Lymph % (Auto) 16.5 L [facility] % (Auto) 8.0 Eos % (Auto) 7.0 H Baso % (Auto) 0.7 Neut # (Auto) 8.2 H Lymph # (Auto) 2.0 [facility] # (Auto) 1.0 H Eos # (Auto) 0.9 H Baso # (Auto) 0.1 PT 44.6 H INR 4.1 H* APTT 51 H Sodium Potassium Chloride Carbon Dioxide Anion Gap BUN Creatinine Est GFR ( Amer) Est GFR (Non-Af Amer) POC Glucose (mg/dL) 253 H Random Glucose Calcium Total Bilirubin AST ALT Alkaline Phosphatase Total Creatine Kinase Troponin I NT-Pro-B Natriuret Pep Total Protein Albumin Globulin Albumin/Globulin Ratio Stool Occult Blood Blood Type Antibody Screen 01/16/18 01/16/18 01/16/18 07:07 07:31 07:47 WBC RBC Hgb Hct MCV MCH MCHC RDW Plt Count MPV Neut % (Auto) Lymph % (Auto) [facility] % (Auto) Eos % (Auto) Baso % (Auto) Neut # (Auto) Lymph # (Auto) [facility] # (Auto) Eos # (Auto) Baso # (Auto) PT INR APTT Sodium 137 Potassium 4.6 Chloride 97 L Carbon Dioxide 23 Anion Gap 21 H BUN 54 H Creatinine 3.5 H Est GFR ( Amer) 21 Est GFR (Non-Af Amer) 17 POC Glucose (mg/dL) Random Glucose 240 H Calcium 9.2 Total Bilirubin 1.7 H AST 17 D ALT 16 L D Alkaline Phosphatase 110 Total Creatine Kinase 117 Troponin I 0.0410 NT-Pro-B Natriuret Pep 7550 H Total Protein 7.3 Albumin 3.7 Globulin 3.6 Albumin/Globulin Ratio 1.0 Stool Occult Blood Negative Blood Type A POSITIVE Antibody Screen Negative Assessment & Plan - Assessment and Plan (Free Text) Assessment: Patient is a 77 year old male with PMHx of atrial fibrillation on warfarin, HTN, CAD, DM-2, hypothyroidism, and HLD presenting with right leg pain after a fall. Hb/Hct was 5.6/16.4, received 2 units of PRBC. Plan: Neuro: - Patient is AAO x 3 Pulm: - LE venous duplex: f/u Cardiovascular: - Troponin: 0.04 - Echo: f/u - Pro-BNP: 4550 Heme: - Hb/Hct was 5.6/16.4 - Received 2 units of PRBC Renal: - BUN/Cr: 54/3.5 - NS @ 40mls/hr Endo: - Accuchecks ACHS - Anion gap: 21 GI: - FOBT: negative - Total bili: 1.7 ID: - Zosyn 3.375g IV Q6H (Started on 01/16) - Vancomycin 1g IV QD (Started on 01/16) - Penis wound culture: f/u Prophylaxis: - Protonix 40mg IVP QD - SCD's Case discussed with Dr. Ji Kerr, PGY-1 <Filomena Workman - Last Filed: 01/17/18 12:11> Meds - Medications Medications: Current Medications Hydromorphone HCl (Dilaudid) 1 mg IVP Q3H PRN PRN Reason: Pain, severe (8-10) Last Admin: 01/17/18 12:00 Dose: 1 mg Sodium Chloride (Sodium Chloride 0.9%) 1,000 mls @ 40 mls/hr IV .Q24H RENA Last Admin: 01/16/18 17:51 Dose: 40 mls/hr Piperacillin Sod/Tazobactam (Sod 3.375 gm/ Sodium Chloride) 100 mls @ 200 mls/hr IVPB Q6H RENA; Protocol Last Admin: 01/17/18 10:07 Dose: 200 mls/hr Vancomycin/Sodium Chloride (Vancomycin 1 Gm/Ns 200 Ml) 1 gm in 200 mls @ 133 mls/hr IVPB DAILY RENA; Protocol Stop: 01/21/18 17:01 Last Admin: 01/17/18 10:45 Dose: 133 mls/hr Pantoprazole Sodium (Protonix Inj) 40 mg IVP DAILY RENA Last Admin: 01/17/18 10:10 Dose: 40 mg Results - Vital Signs Recent Vital Signs: Last Vital Signs Temp 98.3 F 01/17/18 00:00 Pulse 104 H 01/17/18 07:00 Resp 15 01/17/18 07:00 BP 111/63 01/17/18 06:18 Pulse Ox 99 01/17/18 07:00 - Labs Result Diagrams: 01/17/18 06:32 01/17/18 06:30 Labs: Laboratory Results - last 24 hr 01/16/18 01/16/18 01/16/18 07:31 15:25 21:25 WBC RBC Hgb Hct MCV MCH MCHC RDW Plt Count MPV Neut % (Auto) Lymph % (Auto) [facility] % (Auto) Eos % (Auto) Baso % (Auto) Neut # (Auto) Lymph # (Auto) [facility] # (Auto) Eos # (Auto) Baso # (Auto) Neutrophils % (Manual) Band Neutrophils % Lymphocytes % (Manual) Monocytes % (Manual) Eosinophils % (Manual) Platelet Estimate Polychromasia Hypochromasia (manual) Anisocytosis (manual) PT INR APTT Sodium Potassium Chloride Carbon Dioxide Anion Gap BUN Creatinine Est GFR ( Amer) Est GFR (Non-Af Amer) POC Glucose (mg/dL) 202 H Random Glucose Calcium Phosphorus Magnesium Total Bilirubin AST ALT Alkaline Phosphatase Total Creatine Kinase CK-MB (Mass) Troponin I Total Protein Albumin Globulin Albumin/Globulin Ratio Urine Color Yellow Urine Clarity Clear Urine pH 7.0 Ur Specific [place] 1.011 Urine Protein 2+ H Urine Glucose (UA) 1+ H Urine Ketones Trace Urine Blood 3+ H Urine Nitrate Negative Urine Bilirubin Negative Urine Urobilinogen 4.0 Ur Leukocyte Esterase 3+ H Urine WBC (Auto) 24 H Urine RBC (Auto) 56 H Ur Squamous Epith Cells < 1 Blood Type A POSITIVE Antibody Screen Negative 01/16/18 01/17/18 01/17/18 23:14 06:30 06:32 WBC 10.1 RBC 2.13 L Hgb 6.7 L Hct 19.2 L MCV 90.1 D MCH 31.4 H MCHC 34.8 RDW 17.8 H Plt Count 359 MPV 6.7 L Neut % (Auto) 79.4 H Lymph % (Auto) 8.1 L [facility] % (Auto) 6.2 Eos % (Auto) 5.7 H Baso % (Auto) 0.6 Neut # (Auto) 8.0 H Lymph # (Auto) 0.8 L [facility] # (Auto) 0.6 Eos # (Auto) 0.6 Baso # (Auto) 0.1 Neutrophils % (Manual) 82 H Band Neutrophils % 1 Lymphocytes % (Manual) 7 L Monocytes % (Manual) 3 Eosinophils % (Manual) 7 H Platelet Estimate Normal Polychromasia Slight Hypochromasia (manual) Slight Anisocytosis (manual) Slight PT INR APTT Sodium 139 Potassium 4.2 Chloride 107 Carbon Dioxide 23 Anion Gap 14 BUN 48 H Creatinine 2.6 H Est GFR ( Amer) 29 Est GFR (Non-Af Amer) 24 POC Glucose (mg/dL) Random Glucose 193 H Calcium 8.4 L Phosphorus 2.9 Magnesium 2.0 Total Bilirubin 1.7 H AST 15 L ALT 14 L Alkaline Phosphatase 87 Total Creatine Kinase 74 CK-MB (Mass) 1.42 Troponin I 0.0940 Total Protein 6.3 Albumin 3.0 L Globulin 3.2 Albumin/Globulin Ratio 0.9 L Urine Color Urine Clarity Urine pH Ur Specific [place] Urine Protein Urine Glucose (UA) Urine Ketones Urine Blood Urine Nitrate Urine Bilirubin Urine Urobilinogen Ur Leukocyte Esterase Urine WBC (Auto) Urine RBC (Auto) Ur Squamous Epith Cells Blood Type Antibody Screen 01/17/18 07:31 WBC RBC Hgb Hct MCV MCH MCHC RDW Plt Count MPV Neut % (Auto) Lymph % (Auto) [facility] % (Auto) Eos % (Auto) Baso % (Auto) Neut # (Auto) Lymph # (Auto) [facility] # (Auto) Eos # (Auto) Baso # (Auto) Neutrophils % (Manual) Band Neutrophils % Lymphocytes % (Manual) Monocytes % (Manual) Eosinophils % (Manual) Platelet Estimate Polychromasia Hypochromasia (manual) Anisocytosis (manual) PT 35.3 H D INR 3.2 H* APTT 39 H D Sodium Potassium Chloride Carbon Dioxide Anion Gap BUN Creatinine Est GFR ( Amer) Est GFR (Non-Af Amer) POC Glucose (mg/dL) Random Glucose Calcium Phosphorus Magnesium Total Bilirubin AST ALT Alkaline Phosphatase Total Creatine Kinase CK-MB (Mass) Troponin I Total Protein Albumin Globulin Albumin/Globulin Ratio Urine Color Urine Clarity Urine pH Ur Specific [place] Urine Protein Urine Glucose (UA) Urine Ketones Urine Blood Urine Nitrate Urine Bilirubin Urine Urobilinogen Ur Leukocyte Esterase Urine WBC (Auto) Urine RBC (Auto) Ur Squamous Epith Cells Blood Type Antibody Screen Attending/Attestation - Attestation I have personally seen and examined this patient.: Yes I have fully participated in the care of the patient.: Yes I have reviewed all pertinent clinical information: Yes Notes (Text): 01/17/18 12:11 Patient admitted following a hamartoma right leg. Bleeding. Anemia. Patient had a recurrent fall. He will need ICU management. Blood transfusion. FfP.
[2018-01-16 15:41] LABS: SQUAMOUS EPITHIAL < 1 /hpf (0-5); URINE BILIRUBIN NEGATIVE (NEGATIVE); URINE BLOOD 3+ (NEGATIVE); URINE CLARITY Clear (Clear); URINE COLOR Yellow (YELLOW); URINE GLUCOSE (UA) 1+ mg/dL (Normal); URINE LEUKOCYTE ESTERASE 3+ Leu/uL (Negative); URINE PROTEIN 2+ mg/dL (NEGATIVE)
[2018-01-16] MEDS: Piperacillin/Tazobact 3.375 GM in Sodium Chloride 100 ML IVPB SCH ×2 (17:51→23:00)
[2018-01-16] MEDS: Sodium Chloride 0.9% 1,000 ML IV SCH (17:51)
[2018-01-16] MEDS: Vancomycin 1 gm/NS 200 ml 1 GM/200 ML BAG IVPB SCH (18:00)
--- NOTE | 2018-01-16 22:17 | CP.PCM.HP ---
Past Patient History - Infectious Disease Hx of Infectious Diseases: None - Past Medical History & Family History Past Medical History?: Yes - Past Social History Smoking Status: Never Smoked - CARDIAC Hx Atrial Fibrillation: Yes Hx Congestive Heart Failure: No Hx Hypercholesterolemia: Yes Hx Hypertension: Yes - PULMONARY Hx Chronic Obstructive Pulmonary Disease (COPD): No - NEUROLOGICAL Hx Neurological Disorder: No - HEENT Hx HEENT Problems: No - RENAL Hx Chronic Kidney Disease: No - ENDOCRINE/METABOLIC Hx Hypothyroidism: No - HEMATOLOGICAL/ONCOLOGICAL Hx Human Immunodeficiency Virus (HIV): No - INTEGUMENTARY Hx Dermatological Problems: No - MUSCULOSKELETAL/RHEUMATOLOGICAL Hx Arthritis: No Hx Rheumatoid Arthritis: No - GASTROINTESTINAL Hx Gastrointestinal Disorders: No - GENITOURINARY/GYNECOLOGICAL Hx Genitourinary Disorders: No - PSYCHIATRIC Hx Substance Use: No - SURGICAL HISTORY Hx Coronary Stent: Yes - ANESTHESIA Hx Anesthesia: Yes Hx Anesthesia Reactions: No Hx Malignant Hyperthermia: No Meds Allergies/Adverse Reactions: Allergies Allergy/AdvReac Type Severity Reaction Status Date / Time No Known Allergies Allergy Verified 01/16/18 06:18 Results - Vital Signs Recent Vital Signs: Last Vital Signs Temp 97.8 F 01/16/18 20:00 Pulse 101 H 01/16/18 20:40 Resp 18 01/16/18 20:40 BP 147/92 H 01/16/18 20:18 Pulse Ox 92 L 01/16/18 20:40 - Labs Result Diagrams: 01/16/18 07:07 01/16/18 07:07 Labs: Laboratory Results - last 24 hr 01/16/18 01/16/18 01/16/18 06:10 07:07 07:07 WBC 12.1 H RBC 1.76 L Hgb 5.6 L* D Hct 16.4 L MCV 93.3 D MCH 31.8 H MCHC 34.1 RDW 16.6 H Plt Count 426 H D MPV 7.1 L Neut % (Auto) 67.8 Lymph % (Auto) 16.5 L [place] % (Auto) 8.0 Eos % (Auto) 7.0 H Baso % (Auto) 0.7 Neut # (Auto) 8.2 H Lymph # (Auto) 2.0 [place] # (Auto) 1.0 H Eos # (Auto) 0.9 H Baso # (Auto) 0.1 PT 44.6 H INR 4.1 H* APTT 51 H Sodium Potassium Chloride Carbon Dioxide Anion Gap BUN Creatinine Est GFR ( Amer) Est GFR (Non-Af Amer) POC Glucose (mg/dL) 253 H Random Glucose Calcium Total Bilirubin AST ALT Alkaline Phosphatase Total Creatine Kinase Troponin I NT-Pro-B Natriuret Pep Total Protein Albumin Globulin Albumin/Globulin Ratio Urine Color Urine Clarity Urine pH Ur Specific [place] Urine Protein Urine Glucose (UA) Urine Ketones Urine Blood Urine Nitrate Urine Bilirubin Urine Urobilinogen Ur Leukocyte Esterase Urine WBC (Auto) Urine RBC (Auto) Ur Squamous Epith Cells Stool Occult Blood Blood Type Antibody Screen 01/16/18 01/16/18 01/16/18 07:07 07:31 07:47 WBC RBC Hgb Hct MCV MCH MCHC RDW Plt Count MPV Neut % (Auto) Lymph % (Auto) [place] % (Auto) Eos % (Auto) Baso % (Auto) Neut # (Auto) Lymph # (Auto) [place] # (Auto) Eos # (Auto) Baso # (Auto) PT INR APTT Sodium 137 Potassium 4.6 Chloride 97 L Carbon Dioxide 23 Anion Gap 21 H BUN 54 H Creatinine 3.5 H Est GFR ( Amer) 21 Est GFR (Non-Af Amer) 17 POC Glucose (mg/dL) Random Glucose 240 H Calcium 9.2 Total Bilirubin 1.7 H AST 17 D ALT 16 L D Alkaline Phosphatase 110 Total Creatine Kinase 117 Troponin I 0.0410 NT-Pro-B Natriuret Pep 7550 H Total Protein 7.3 Albumin 3.7 Globulin 3.6 Albumin/Globulin Ratio 1.0 Urine Color Urine Clarity Urine pH Ur Specific [place] Urine Protein Urine Glucose (UA) Urine Ketones Urine Blood Urine Nitrate Urine Bilirubin Urine Urobilinogen Ur Leukocyte Esterase Urine WBC (Auto) Urine RBC (Auto) Ur Squamous Epith Cells Stool Occult Blood Negative Blood Type A POSITIVE Antibody Screen Negative 01/16/18 01/16/18 15:25 21:25 WBC RBC Hgb Hct MCV MCH MCHC RDW Plt Count MPV Neut % (Auto) Lymph % (Auto) [place] % (Auto) Eos % (Auto) Baso % (Auto) Neut # (Auto) Lymph # (Auto) [place] # (Auto) Eos # (Auto) Baso # (Auto) PT INR APTT Sodium Potassium Chloride Carbon Dioxide Anion Gap BUN Creatinine Est GFR ( Amer) Est GFR (Non-Af Amer) POC Glucose (mg/dL) 202 H Random Glucose Calcium Total Bilirubin AST ALT Alkaline Phosphatase Total Creatine Kinase Troponin I NT-Pro-B Natriuret Pep Total Protein Albumin Globulin Albumin/Globulin Ratio Urine Color Yellow Urine Clarity Clear Urine pH 7.0 Ur Specific [place] 1.011 Urine Protein 2+ H Urine Glucose (UA) 1+ H Urine Ketones Trace Urine Blood 3+ H Urine Nitrate Negative Urine Bilirubin Negative Urine Urobilinogen 4.0 Ur Leukocyte Esterase 3+ H Urine WBC (Auto) 24 H Urine RBC (Auto) 56 H Ur Squamous Epith Cells < 1 Stool Occult Blood Blood Type Antibody Screen
[2018-01-16 23:43] LABS: CK-MB 1.42 ng/mL (0.0-3.38)
[2018-01-16 23:47] LABS: TROPONIN I 0.094 ng/mL (0.00-0.120)
--- NOTE | 2018-01-17 03:27 | HP ---
CHIEF COMPLAINT: Right leg pain, redness, swelling, weakness, dizziness for 8 days. HISTORY OF PRESENT ILLNESS: This is a 77-year-old male who is with history of atrial fibrillation, on Coumadin. He is compliant with his diet, medication, and followup. He had a fall eight days ago while he was going to the bathroom, and according to him, his right leg hit the side and he has been getting increasing swelling in the right leg. He denies any history of head injury, loss of consciousness, seizure like activity, and he has been having pain and swelling of the right leg. He denies going to the emergency room. According to the patient, generally he does not walk. He has chronic indwelling Lord catheter in place. He denies any fever or chills. No evidence of cough, sore throat, runny nose, dyspnea on exertion, orthopnea, PND, abdominal pain, and urinary symptoms. He also has a history of hypertension, coronary artery disease, type 2 diabetes, hypothyroidism, and hyperlipidemia. 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 He denies any history of sneezing, itchy eyes, or itchy nose. He denies any history of polyuria, polydipsia, or polyphagia. He denies any history of hematuria or pyuria. PAST MEDICAL HISTORY: Coronary, artery disease, status post angioplasty, hypertension, type 2 diabetes, hyperlipidemia, hypothyroidism, atrial fibrillation, on Coumadin and indwelling Lord catheter. ALLERGIES: UNKNOWN. SOCIAL HISTORY: He denies smoking and drinking. CURRENT MEDICATIONS AT HOME: He is on Coumadin, Zocor, Prilosec, Toprol-XL, metformin, Hyzaar, Synthroid, glipizide, and Norvasc. PHYSICAL EXAMINATION: GENERAL: This is an elderly male, in distress. He is upset about his injuries, and he is upset about the fact that he may not be able to walk and he denies any chest pain, palpitation, weakness, dizziness. VITAL SIGNS: Blood pressure , pulse 97, respiratory rate 21, and temperature 98.1. SKIN: The patient has extensive bruising of right leg with redness. No open ulcers. HEENT: Atraumatic, normocephalic. Positive pallor. No icterus or jaundice. Extraocular movements are intact. NECK: Supple. No JVD. No lymph node. No thyromegaly. No carotid bruit. CHEST WALL: Bilateral symmetrical expansion. No masses. No gynecomastia. LUNGS: Bilaterally clear. No rales or rhonchi. CARDIOVASCULAR SYSTEM: PMI not localized. S1, S2 irregularly irregular. Tachycardic. ABDOMEN: Soft. Nontender. Bowel sounds are positive. RECTAL: Negative. Occult blood. Enlarged prostate. GENITAL: Normal. EXTREMITIES: Massive right leg swelling with visible difference in diameter of both legs from the hip down to the calf with increasing blood discoloration. CENTRAL NERVOUS SYSTEM: Awake, alert, oriented x3. Cranial nerves II through XII are normal. Power 5/5 x4. Plantars are downgoing. ASSESSMENT: 1. Right leg hematoma, most likely coagulopathy with injury and the patient did not seek any medical attention. 2. Low hemoglobin which is due to bleeding in the right leg. 3. Chronic atrial fibrillation, on Coumadin. 4. Urinary tract infection. PLAN: Admit. Detail orders written. Seen and examined. Kevin Osborne MD
[2018-01-17] MEDS: Piperacillin/Tazobact 3.375 GM in Sodium Chloride 100 ML IVPB SCH ×4 (05:00→22:55)
[2018-01-17 06:40] LABS: BASO # 0.1 K/uL (0.0-0.2); BASO % 0.6 % (0.0-2.0); EOS # 0.6 K/uL (0.0-0.7); EOS % 5.7 % (0.0-4.0); HEMOGLOBIN 6.7 g/dL (12.0-18.0); LYMPH # 0.8 K/uL (1.0-4.3); LYMPH % 8.1 % (20.0-40.0); MEAN CELL VOLUME 90.1 fL (80.0-94.0); MEAN CORPUSCULAR HEMOGLOBIN 31.4 pg (27.0-31.0); MEAN CORPUSCULAR HGB CONC 34.8 g/dL (33.0-37.0); MEAN PLATELET VOLUME 6.7 fL (7.2-11.7); MONO # 0.6 K/uL (0.0-0.8); MONO % 6.2 % (0.0-10.0); NEUT % 79.4 % (50.0-75.0); PLATELET COUNT 359 K/uL (130-400); RBC 2.13 Mil/uL (4.40-5.90); RED CELL DISTRIBUTION WIDTH 17.8 % (11.5-14.5); WHITE BLOOD COUNT 10.1 K/uL (4.8-10.8)
[2018-01-17 06:50] LABS: ALB/GLOB RATIO 0.9 (1.0-2.1); CALCIUM 8.4 mg/dl (8.6-10.4)
--- NOTE | 2018-01-17 07:36 | CP.CCUPN ---
<Jose Kerr - Last Filed: 01/17/18 18:16> CCU Subjective - Physician Review Subjective (Free Text): 01/17/18 08:16 Patient seen and examined at bedside. No acute events overnight. Patient received 2 units of PRBC and 1 unit of FFP last night. Additional 2 units of PRBC and 2 units of FFP's ordered for today. Critical Care Time Spent (in minutes): 35 CCU Objective - Vital Signs / Intake & Output Vital Signs (Last 4 hours): Vital Signs Pulse Resp BP Pulse Ox 01/17/18 07:00 104 H 15 99 01/17/18 06:18 106 H 14 111/63 97 01/17/18 06:00 114 H 16 96 01/17/18 05:20 143 H 29 H 156/98 H 91 L 01/17/18 05:00 94 H 15 96 01/17/18 04:18 96 H 20 125/59 L 93 L 01/17/18 04:00 102 H 18 92 L Intake and Output (Last 8hrs): Intake & Output 01/16/18 01/17/18 01/17/18 22:59 06:59 14:59 Intake Total 1320 380 Output Total 785 420 Balance 535 -40 Weight 213 lb 13.574 oz Intake: Intake, IV Amount 920 380 Left Antecubital 620 380 Right Forearm 300 Right Hand 0 Blood Product 400 Output: Urine 785 420 Urethral (Lord) 785 420 - Physical Exam Other physical findings (Free Text): - Constitutional Appears: No Acute Distress Additional comments: Appears lethargic - Head Exam Head Exam: ATRAUMATIC, NORMOCEPHALIC - Eye Exam Eye Exam: Normal appearance, PERRL - ENT Exam ENT Exam: Mucous Membranes Moist - Respiratory Exam Respiratory Exam: Clear to Auscultation Bilateral. absent: Accessory Muscle U se, Rales, Rhonchi, Wheezes, Respiratory Distress - Cardiovascular Exam Cardiovascular Exam: Irregular Rhythm, +S1, +S2. absent: Gallop, Rubs, Systolic Murmur - GI/Abdominal Exam GI & Abdominal Exam: Normal Bowel Sounds, Soft. 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 - Extremities Exam Extremities exam: Negative for: calf tenderness, joint swelling - Neurological Exam Neurological exam: Alert, CN II-XII Intact, Oriented x3 - Psychiatric Exam Psychiatric exam: Normal Affect, Normal Mood - Skin Skin Exam: Dry, Intact, Warm - Medications Active Medications: Active Medications Generic Name Dose Route Start Last Admin Trade Name Freq PRN Reason Stop Dose Admin Sodium Chloride 1,000 mls @ 40 mls/hr 01/16/18 14:00 01/16/18 17:51 Sodium Chloride 0.9% IV 40 mls/hr .Q24H RENA Administration Piperacillin Sod/Tazobactam 100 mls @ 200 mls/hr 01/16/18 17:00 01/17/18 05:00 Sod 3.375 gm/ Sodium Chloride IVPB 200 mls/hr Q6H RENA Administration Protocol Vancomycin/Sodium Chloride 1 gm in 200 mls @ 133 mls/hr 01/16/18 17:00 Vancomycin 1 Gm/Ns 200 Ml IVPB 01/21/18 17:01 DAILY RENA Protocol Morphine Sulfate 2 mg 01/16/18 16:33 01/17/18 02:26 Morphine IVP 2 mg Q6 PRN Administration Pain, moderate (4-7) Pantoprazole Sodium 40 mg 01/17/18 10:00 Protonix Inj IVP DAILY RENA - Patient Studies Lab Studies: Lab Studies 01/17/18 01/17/18 01/16/18 Range/Units 06:32 06:30 23:14 WBC 10.1 (4.8-10.8) K/uL RBC 2.13 L (4.40-5.90) Mil/uL Hgb 6.7 L (12.0-18.0) g/dL Hct 19.2 L (35.0-51.0) % MCV 90.1 D (80.0-94.0) fL MCH 31.4 H (27.0-31.0) pg MCHC 34.8 (33.0-37.0) g/dL RDW 17.8 H (11.5-14.5) % Plt Count 359 (130-400) K/uL MPV 6.7 L (7.2-11.7) fL Neut % (Auto) 79.4 H (50.0-75.0) % Lymph % (Auto) 8.1 L (20.0-40.0) % [place] % (Auto) 6.2 (0.0-10.0) % Eos % (Auto) 5.7 H (0.0-4.0) % Baso % (Auto) 0.6 (0.0-2.0) % Neut # (Auto) 8.0 H (1.8-7.0) K/uL Lymph # (Auto) 0.8 L (1.0-4.3) K/uL [place] # (Auto) 0.6 (0.0-0.8) K/uL Eos # (Auto) 0.6 (0.0-0.7) K/uL Baso # (Auto) 0.1 (0.0-0.2) K/uL PT (9.7-12.2) SECONDS INR Sodium 139 (132-148) mmol/L Potassium 4.2 (3.6-5.2) mmol/L Chloride 107 (98-107) mmol/L Carbon Dioxide 23 (22-30) mmol/L Anion Gap 14 (10-20) BUN 48 H (9-20) mg/dL Creatinine 2.6 H (0.8-1.5) mg/dL Est GFR ( Amer) 29 Est GFR (Non-Af Amer) 24 POC Glucose (mg/dL) (65-110) mg/dL Random Glucose 193 H (75-110) mg/dL Calcium 8.4 L (8.6-10.4) mg/dl Phosphorus 2.9 (2.5-4.5) mg/dL Magnesium 2.0 (1.6-2.3) mg/dL Total Bilirubin 1.7 H (0.2-1.3) mg/dL AST 15 L (17-59) U/L ALT 14 L (21-72) U/L Alkaline Phosphatase 87 (38-126) U/L Total Creatine Kinase 74 (55-170) U/L CK-MB (Mass) 1.42 (0.0-3.38) ng/mL Troponin I 0.0940 (0.00-0.120) ng/mL NT-Pro-B Natriuret Pep (0-900) pg/mL Total Protein 6.3 (6.3-8.3) g/dL Albumin 3.0 L (3.5-5.0) g/dL Globulin 3.2 (2.2-3.9) gm/dL Albumin/Globulin Ratio 0.9 L (1.0-2.1) Urine Color (YELLOW) Urine Clarity (Clear) Urine pH (5.0-8.0) Ur Specific [place] (1.003-1.030) Urine Protein (NEGATIVE) mg/dL Urine Glucose (UA) (Normal) mg/dL Urine Ketones (NEGATIVE) mg/dL Urine Blood (NEGATIVE) Urine Nitrate (NEGATIVE) Urine Bilirubin (NEGATIVE) Urine Urobilinogen (0.2-1.0) mg/dL Ur Leukocyte Esterase (Negative) Shayy/uL Urine WBC (Auto) (0-5) /hpf Urine RBC (Auto) (0-3) /hpf Ur Squamous Epith Cells (0-5) /hpf Stool Occult Blood (NEGATIVE) Blood Type Antibody Screen 01/16/18 01/16/18 01/16/18 Range/Units 21:25 15:25 07:47 WBC (4.8-10.8) K/uL RBC (4.40-5.90) Mil/uL Hgb (12.0-18.0) g/dL Hct (35.0-51.0) % MCV (80.0-94.0) fL MCH (27.0-31.0) pg MCHC (33.0-37.0) g/dL RDW (11.5-14.5) % Plt Count (130-400) K/uL MPV (7.2-11.7) fL Neut % (Auto) (50.0-75.0) % Lymph % (Auto) (20.0-40.0) % [place] % (Auto) (0.0-10.0) % Eos % (Auto) (0.0-4.0) % Baso % (Auto) (0.0-2.0) % Neut # (Auto) (1.8-7.0) K/uL Lymph # (Auto) (1.0-4.3) K/uL [place] # (Auto) (0.0-0.8) K/uL Eos # (Auto) (0.0-0.7) K/uL Baso # (Auto) (0.0-0.2) K/uL PT (9.7-12.2) SECONDS INR Sodium (132-148) mmol/L Potassium (3.6-5.2) mmol/L Chloride (98-107) mmol/L Carbon Dioxide (22-30) mmol/L Anion Gap (10-20) BUN (9-20) mg/dL Creatinine (0.8-1.5) mg/dL Est GFR ( Amer) Est GFR (Non-Af Amer) POC Glucose (mg/dL) 202 H (65-110) mg/dL Random Glucose (75-110) mg/dL Calcium (8.6-10.4) mg/dl Phosphorus (2.5-4.5) mg/dL Magnesium (1.6-2.3) mg/dL Total Bilirubin (0.2-1.3) mg/dL AST (17-59) U/L ALT (21-72) U/L Alkaline Phosphatase (38-126) U/L Total Creatine Kinase (55-170) U/L CK-MB (Mass) (0.0-3.38) ng/mL Troponin I (0.00-0.120) ng/mL NT-Pro-B Natriuret Pep (0-900) pg/mL Total Protein (6.3-8.3) g/dL Albumin (3.5-5.0) g/dL Globulin (2.2-3.9) gm/dL Albumin/Globulin Ratio (1.0-2.1) Urine Color Yellow (YELLOW) Urine Clarity Clear (Clear) Urine pH 7.0 (5.0-8.0) Ur Specific [place] 1.011 (1.003-1.030) Urine Protein 2+ H (NEGATIVE) mg/dL Urine Glucose (UA) 1+ H (Normal) mg/dL Urine Ketones Trace (NEGATIVE) mg/dL Urine Blood 3+ H (NEGATIVE) Urine Nitrate Negative (NEGATIVE) Urine Bilirubin Negative (NEGATIVE) Urine Urobilinogen 4.0 (0.2-1.0) mg/dL Ur Leukocyte Esterase 3+ H (Negative) Shayy/uL Urine WBC (Auto) 24 H (0-5) /hpf Urine RBC (Auto) 56 H (0-3) /hpf Ur Squamous Epith Cells < 1 (0-5) /hpf Stool Occult Blood Negative (NEGATIVE) Blood Type Antibody Screen 01/16/18 01/16/18 01/16/18 Range/Units 07:31 07:07 07:07 WBC (4.8-10.8) K/uL RBC (4.40-5.90) Mil/uL Hgb (12.0-18.0) g/dL Hct (35.0-51.0) % MCV (80.0-94.0) fL MCH (27.0-31.0) pg MCHC (33.0-37.0) g/dL RDW (11.5-14.5) % Plt Count (130-400) K/uL MPV (7.2-11.7) fL Neut % (Auto) (50.0-75.0) % Lymph % (Auto) (20.0-40.0) % [place] % (Auto) (0.0-10.0) % Eos % (Auto) (0.0-4.0) % Baso % (Auto) (0.0-2.0) % Neut # (Auto) (1.8-7.0) K/uL Lymph # (Auto) (1.0-4.3) K/uL [place] # (Auto) (0.0-0.8) K/uL Eos # (Auto) (0.0-0.7) K/uL Baso # (Auto) (0.0-0.2) K/uL PT 44.6 H (9.7-12.2) SECONDS INR 4.1 H* Sodium 137 (132-148) mmol/L Potassium 4.6 (3.6-5.2) mmol/L Chloride 97 L (98-107) mmol/L Carbon Dioxide 23 (22-30) mmol/L Anion Gap 21 H (10-20) BUN 54 H (9-20) mg/dL Creatinine 3.5 H (0.8-1.5) mg/dL Est GFR ( Amer) 21 Est GFR (Non-Af Amer) 17 POC Glucose (mg/dL) (65-110) mg/dL Random Glucose 240 H (75-110) mg/dL Calcium 9.2 (8.6-10.4) mg/dl Phosphorus (2.5-4.5) mg/dL Magnesium (1.6-2.3) mg/dL Total Bilirubin 1.7 H (0.2-1.3) mg/dL AST 17 D (17-59) U/L ALT 16 L D (21-72) U/L Alkaline Phosphatase 110 (38-126) U/L Total Creatine Kinase 117 (55-170) U/L CK-MB (Mass) (0.0-3.38) ng/mL Troponin I 0.0410 (0.00-0.120) ng/mL NT-Pro-B Natriuret Pep 7550 H (0-900) pg/mL Total Protein 7.3 (6.3-8.3) g/dL Albumin 3.7 (3.5-5.0) g/dL Globulin 3.6 (2.2-3.9) gm/dL Albumin/Globulin Ratio 1.0 (1.0-2.1) Urine Color (YELLOW) Urine Clarity (Clear) Urine pH (5.0-8.0) Ur Specific [place] (1.003-1.030) Urine Protein (NEGATIVE) mg/dL Urine Glucose (UA) (Normal) mg/dL Urine Ketones (NEGATIVE) mg/dL Urine Blood (NEGATIVE) Urine Nitrate (NEGATIVE) Urine Bilirubin (NEGATIVE) Urine Urobilinogen (0.2-1.0) mg/dL Ur Leukocyte Esterase (Negative) Shayy/uL Urine WBC (Auto) (0-5) /hpf Urine RBC (Auto) (0-3) /hpf Ur Squamous Epith Cells (0-5) /hpf Stool Occult Blood (NEGATIVE) Blood Type A POSITIVE Antibody Screen Negative 01/16/18 Range/Units 06:10 WBC (4.8-10.8) K/uL RBC (4.40-5.90) Mil/uL Hgb (12.0-18.0) g/dL Hct (35.0-51.0) % MCV (80.0-94.0) fL MCH (27.0-31.0) pg MCHC (33.0-37.0) g/dL RDW (11.5-14.5) % Plt Count (130-400) K/uL MPV (7.2-11.7) fL Neut % (Auto) (50.0-75.0) % Lymph % (Auto) (20.0-40.0) % [place] % (Auto) (0.0-10.0) % Eos % (Auto) (0.0-4.0) % Baso % (Auto) (0.0-2.0) % Neut # (Auto) (1.8-7.0) K/uL Lymph # (Auto) (1.0-4.3) K/uL [place] # (Auto) (0.0-0.8) K/uL Eos # (Auto) (0.0-0.7) K/uL Baso # (Auto) (0.0-0.2) K/uL PT (9.7-12.2) SECONDS INR Sodium (132-148) mmol/L Potassium (3.6-5.2) mmol/L Chloride (98-107) mmol/L Carbon Dioxide (22-30) mmol/L Anion Gap (10-20) BUN (9-20) mg/dL Creatinine (0.8-1.5) mg/dL Est GFR ( Amer) Est GFR (Non-Af Amer) POC Glucose (mg/dL) 253 H (65-110) mg/dL Random Glucose (75-110) mg/dL Calcium (8.6-10.4) mg/dl Phosphorus (2.5-4.5) mg/dL Magnesium (1.6-2.3) mg/dL Total Bilirubin (0.2-1.3) mg/dL AST (17-59) U/L ALT (21-72) U/L Alkaline Phosphatase (38-126) U/L Total Creatine Kinase (55-170) U/L CK-MB (Mass) (0.0-3.38) ng/mL Troponin I (0.00-0.120) ng/mL NT-Pro-B Natriuret Pep (0-900) pg/mL Total Protein (6.3-8.3) g/dL Albumin (3.5-5.0) g/dL Globulin (2.2-3.9) gm/dL Albumin/Globulin Ratio (1.0-2.1) Urine Color (YELLOW) Urine Clarity (Clear) Urine pH (5.0-8.0) Ur Specific [place] (1.003-1.030) Urine Protein (NEGATIVE) mg/dL Urine Glucose (UA) (Normal) mg/dL Urine Ketones (NEGATIVE) mg/dL Urine Blood (NEGATIVE) Urine Nitrate (NEGATIVE) Urine Bilirubin (NEGATIVE) Urine Urobilinogen (0.2-1.0) mg/dL Ur Leukocyte Esterase (Negative) Shayy/uL Urine WBC (Auto) (0-5) /hpf Urine RBC (Auto) (0-3) /hpf Ur Squamous Epith Cells (0-5) /hpf Stool Occult Blood (NEGATIVE) Blood Type Antibody Screen Laboratory Results - last 24 hr 01/16/18 01/16/18 01/16/18 06:10 07:07 07:07 WBC RBC Hgb Hct MCV MCH MCHC RDW Plt Count MPV Neut % (Auto) Lymph % (Auto) [place] % (Auto) Eos % (Auto) Baso % (Auto) Neut # (Auto) Lymph # (Auto) [place] # (Auto) Eos # (Auto) Baso # (Auto) PT 44.6 H INR 4.1 H* Sodium 137 Potassium 4.6 Chloride 97 L Carbon Dioxide 23 Anion Gap 21 H BUN 54 H Creatinine 3.5 H Est GFR ( Amer) 21 Est GFR (Non-Af Amer) 17 POC Glucose (mg/dL) 253 H Random Glucose 240 H Calcium 9.2 Phosphorus Magnesium Total Bilirubin 1.7 H AST 17 D ALT 16 L D Alkaline Phosphatase 110 Total Creatine Kinase 117 CK-MB (Mass) Troponin I 0.0410 NT-Pro-B Natriuret Pep 7550 H Total Protein 7.3 Albumin 3.7 Globulin 3.6 Albumin/Globulin Ratio 1.0 Urine Color Urine Clarity Urine pH Ur Specific [place] Urine Protein Urine Glucose (UA) Urine Ketones Urine Blood Urine Nitrate Urine Bilirubin Urine Urobilinogen Ur Leukocyte Esterase Urine WBC (Auto) Urine RBC (Auto) Ur Squamous Epith Cells Stool Occult Blood Blood Type Antibody Screen 01/16/18 01/16/18 01/16/18 07:31 07:47 15:25 WBC RBC Hgb Hct MCV MCH MCHC RDW Plt Count MPV Neut % (Auto) Lymph % (Auto) [place] % (Auto) Eos % (Auto) Baso % (Auto) Neut # (Auto) Lymph # (Auto) [place] # (Auto) Eos # (Auto) Baso # (Auto) PT INR Sodium Potassium Chloride Carbon Dioxide Anion Gap BUN Creatinine Est GFR ( Amer) Est GFR (Non-Af Amer) POC Glucose (mg/dL) Random Glucose Calcium Phosphorus Magnesium Total Bilirubin AST ALT Alkaline Phosphatase Total Creatine Kinase CK-MB (Mass) Troponin I NT-Pro-B Natriuret Pep Total Protein Albumin Globulin Albumin/Globulin Ratio Urine Color Yellow Urine Clarity Clear Urine pH 7.0 Ur Specific [place] 1.011 Urine Protein 2+ H Urine Glucose (UA) 1+ H Urine Ketones Trace Urine Blood 3+ H Urine Nitrate Negative Urine Bilirubin Negative Urine Urobilinogen 4.0 Ur Leukocyte Esterase 3+ H Urine WBC (Auto) 24 H Urine RBC (Auto) 56 H Ur Squamous Epith Cells < 1 Stool Occult Blood Negative Blood Type A POSITIVE Antibody Screen Negative 01/16/18 01/16/18 01/17/18 21:25 23:14 06:30 WBC RBC Hgb Hct MCV MCH MCHC RDW Plt Count MPV Neut % (Auto) Lymph % (Auto) [place] % (Auto) Eos % (Auto) Baso % (Auto) Neut # (Auto) Lymph # (Auto) [place] # (Auto) Eos # (Auto) Baso # (Auto) PT INR Sodium 139 Potassium 4.2 Chloride 107 Carbon Dioxide 23 Anion Gap 14 BUN 48 H Creatinine 2.6 H Est GFR ( Amer) 29 Est GFR (Non-Af Amer) 24 POC Glucose (mg/dL) 202 H Random Glucose 193 H Calcium 8.4 L Phosphorus 2.9 Magnesium 2.0 Total Bilirubin 1.7 H AST 15 L ALT 14 L Alkaline Phosphatase 87 Total Creatine Kinase 74 CK-MB (Mass) 1.42 Troponin I 0.0940 NT-Pro-B Natriuret Pep Total Protein 6.3 Albumin 3.0 L Globulin 3.2 Albumin/Globulin Ratio 0.9 L Urine Color Urine Clarity Urine pH Ur Specific [place] Urine Protein Urine Glucose (UA) Urine Ketones Urine Blood Urine Nitrate Urine Bilirubin Urine Urobilinogen Ur Leukocyte Esterase Urine WBC (Auto) Urine RBC (Auto) Ur Squamous Epith Cells Stool Occult Blood Blood Type Antibody Screen 01/17/18 06:32 WBC 10.1 RBC 2.13 L Hgb 6.7 L Hct 19.2 L MCV 90.1 D MCH 31.4 H MCHC 34.8 RDW 17.8 H Plt Count 359 MPV 6.7 L Neut % (Auto) 79.4 H Lymph % (Auto) 8.1 L [place] % (Auto) 6.2 Eos % (Auto) 5.7 H Baso % (Auto) 0.6 Neut # (Auto) 8.0 H Lymph # (Auto) 0.8 L [place] # (Auto) 0.6 Eos # (Auto) 0.6 Baso # (Auto) 0.1 PT INR Sodium Potassium Chloride Carbon Dioxide Anion Gap BUN Creatinine Est GFR ( Amer) Est GFR (Non-Af Amer) POC Glucose (mg/dL) Random Glucose Calcium Phosphorus Magnesium Total Bilirubin AST ALT Alkaline Phosphatase Total Creatine Kinase CK-MB (Mass) Troponin I NT-Pro-B Natriuret Pep Total Protein Albumin Globulin Albumin/Globulin Ratio Urine Color Urine Clarity Urine pH Ur Specific [place] Urine Protein Urine Glucose (UA) Urine Ketones Urine Blood Urine Nitrate Urine Bilirubin Urine Urobilinogen Ur Leukocyte Esterase Urine WBC (Auto) Urine RBC (Auto) Ur Squamous Epith Cells Stool Occult Blood Blood Type Antibody Screen EKG/Cardiology Studies: Cardiology / EKG Studies 01/16/18 07:21 ELECTROCARDIOGRAM Stat Comment: Mode Of Transportation: Reason For Exam: fall Fingerstick Blood Sugar Results: 202 Critical Care Progress Note - Nutrition Nutrition: Nutrition Category Date Time Status Heart Healthy Diet [DIET] Diets 01/16/18 Dinner Active Assessment/Plan - Assessment and Plan (Free Text) Assessment: Patient is a 77 year old male with PMHx of atrial fibrillation on warfarin, HTN, CAD, DM-2, hypothyroidism, and HLD presenting with right leg pain after a fall. Hb/Hct was 5.6/16.4 on admission. Plan: Neuro: - Patient is AAO x 3 Pulm: - LE venous duplex: f/u Cardiovascular: - Troponin: 0.04 - Echo: f/u - Pro-BNP: 4550 Heme: - Hb: 5.6--> 6.7 - S/p 2 units of PRBC on 01/16 - Ordered 2 x PRBC today - INR: 4.1-->3.2 - S/p 1 unit of FFP on 01/06 - Ordered 2 x FFP today Renal: - BUN/Cr: 48/2.6- downtrending - NS @ 40mls/hr Endo: - Accuchecks ACHS - Anion gap: 14 GI: - FOBT: negative - Total bili: 1.7 Skin: - Lower extremity CT (01/16): Large intramuscular hematoma within most of the mid thigh apparently within the vastus medialis and intermedius. There are diffuse infiltration changes seen throughout the subcutaneous tissues of the left thigh extending distally to the level of the ankle region. Findings likely due to edema however the possibility of a cellulitis not excluded. Small suprapatellar joint effusion. - See full report - Dilaudid 1mg IV Q3 PRN ID: - Zosyn 3.375g IV Q6H (Started on 01/16) - Vancomycin 1g IV QD (Started on 01/16) - Penis wound culture: f/u Prophylaxis: - Protonix 40mg IVP QD - SCD's Case discussed with Dr. Rico Kerr, PGY-1 <Anderson Gómez S - Last Filed: 01/17/18 19:14> CCU Objective - Vital Signs / Intake & Output Vital Signs (Last 4 hours): Vital Signs Temp Pulse Resp BP Pulse Ox 01/17/18 17:50 98 F 96 H 17 126/64 01/17/18 17:25 98 F 96 H 18 126/64 01/17/18 17:06 97 H 14 127/86 93 L 01/17/18 17:00 95 H 15 97 01/17/18 16:55 98.2 F 102 H 18 127/86 01/17/18 16:51 97 H 13 148/76 97 01/17/18 16:40 98.2 F 96 H 17 148/76 01/17/18 16:25 98.2 F 98 H 18 156/80 H 01/17/18 16:22 98.3 F 97 H 18 158/80 H 01/17/18 16:00 105 H 15 95 01/17/18 15:43 112 H 18 158/80 H 94 L 01/17/18 15:28 102 H 15 136/83 95 Intake and Output (Last 8hrs): Intake & Output 01/17/18 01/17/18 01/17/18 06:59 14:59 22:59 Intake Total 380 2316 445 Output Total 420 270 140 Balance -40 2045 305 Weight 213 lb 13.574 oz Intake: Intake, IV Amount 380 1331 445 Left Antecubital 380 911 325 Right Forearm 420 120 Oral 640 Blood Product 325 0 Red Blood Cells Cpd As1 0 Lr Unit [id number] Red Blood Cells Cpd As1 325 Lr Unit [id number] Other 20 Red Blood Cells Cpd As1 20 Lr Unit [id number] Output: Urine 420 270 140 Urethral (Lord) 420 270 140 - Medications Active Medications: Active Medications Generic Name Dose Route Start Last Admin Trade Name Freq PRN Reason Stop Dose Admin Hydromorphone HCl 1 mg 01/17/18 10:22 01/17/18 15:13 Dilaudid IVP 1 mg Q3H PRN Administration Pain, severe (8-10) Sodium Chloride 1,000 mls @ 40 mls/hr 01/16/18 14:00 01/17/18 15:45 Sodium Chloride 0.9% IV Not Given .Q24H RENA Piperacillin Sod/Tazobactam 100 mls @ 200 mls/hr 01/16/18 17:00 01/17/18 16:28 Sod 3.375 gm/ Sodium Chloride IVPB 200 mls/hr Q6H RENA Administration Protocol Vancomycin/Sodium Chloride 1 gm in 200 mls @ 133 mls/hr 01/16/18 17:00 01/17/18 10:45 Vancomycin 1 Gm/Ns 200 Ml IVPB 01/21/18 17:01 133 mls/hr DAILY RENA Administration Protocol Pantoprazole Sodium 40 mg 01/17/18 10:00 01/17/18 10:10 Protonix Inj IVP 40 mg DAILY RENA Administration - Patient Studies Lab Studies: Microbiology Studies 01/16/18 22:32 Gram Stain - Final Penis Lab Studies 01/17/18 01/17/18 01/17/18 Range/Units 16:12 11:02 07:31 WBC (4.8-10.8) K/uL RBC (4.40-5.90) Mil/uL Hgb (12.0-18.0) g/dL Hct (35.0-51.0) % MCV (80.0-94.0) fL MCH (27.0-31.0) pg MCHC (33.0-37.0) g/dL RDW (11.5-14.5) % Plt Count (130-400) K/uL MPV (7.2-11.7) fL Neut % (Auto) (50.0-75.0) % Lymph % (Auto) (20.0-40.0) % [place] % (Auto) (0.0-10.0) % Eos % (Auto) (0.0-4.0) % Baso % (Auto) (0.0-2.0) % Neut # (Auto) (1.8-7.0) K/uL Lymph # (Auto) (1.0-4.3) K/uL [place] # (Auto) (0.0-0.8) K/uL Eos # (Auto) (0.0-0.7) K/uL Baso # (Auto) (0.0-0.2) K/uL Neutrophils % (Manual) (50-75) % Band Neutrophils % (0-2) % Lymphocytes % (Manual) (20-40) % Monocytes % (Manual) (0-10) % Eosinophils % (Manual) (0-4) % Platelet Estimate (NORMAL) Polychromasia Hypochromasia (manual) Anisocytosis (manual) PT 35.3 H D (9.7-12.2) SECONDS INR 3.2 H* APTT 39 H D (21-34) SECONDS Sodium (132-148) mmol/L Potassium (3.6-5.2) mmol/L Chloride (98-107) mmol/L Carbon Dioxide (22-30) mmol/L Anion Gap (10-20) BUN (9-20) mg/dL Creatinine (0.8-1.5) mg/dL Est GFR ( Amer) Est GFR (Non-Af Amer) POC Glucose (mg/dL) 210 H 202 H (65-110) mg/dL Random Glucose (75-110) mg/dL Calcium (8.6-10.4) mg/dl Phosphorus (2.5-4.5) mg/dL Magnesium (1.6-2.3) mg/dL Total Bilirubin (0.2-1.3) mg/dL AST (17-59) U/L ALT (21-72) U/L Alkaline Phosphatase (38-126) U/L Total Creatine Kinase (55-170) U/L CK-MB (Mass) (0.0-3.38) ng/mL Troponin I (0.00-0.120) ng/mL Total Protein (6.3-8.3) g/dL Albumin (3.5-5.0) g/dL Globulin (2.2-3.9) gm/dL Albumin/Globulin Ratio (1.0-2.1) Blood Type Antibody Screen 01/17/18 01/17/18 01/17/18 Range/Units 07:12 06:32 06:30 WBC 10.1 (4.8-10.8) K/uL RBC 2.13 L (4.40-5.90) Mil/uL Hgb 6.7 L (12.0-18.0) g/dL Hct 19.2 L (35.0-51.0) % MCV 90.1 D (80.0-94.0) fL MCH 31.4 H (27.0-31.0) pg MCHC 34.8 (33.0-37.0) g/dL RDW 17.8 H (11.5-14.5) % Plt Count 359 (130-400) K/uL MPV 6.7 L (7.2-11.7) fL Neut % (Auto) 79.4 H (50.0-75.0) % Lymph % (Auto) 8.1 L (20.0-40.0) % [place] % (Auto) 6.2 (0.0-10.0) % Eos % (Auto) 5.7 H (0.0-4.0) % Baso % (Auto) 0.6 (0.0-2.0) % Neut # (Auto) 8.0 H (1.8-7.0) K/uL Lymph # (Auto) 0.8 L (1.0-4.3) K/uL [place] # (Auto) 0.6 (0.0-0.8) K/uL Eos # (Auto) 0.6 (0.0-0.7) K/uL Baso # (Auto) 0.1 (0.0-0.2) K/uL Neutrophils % (Manual) 82 H (50-75) % Band Neutrophils % 1 (0-2) % Lymphocytes % (Manual) 7 L (20-40) % Monocytes % (Manual) 3 (0-10) % Eosinophils % (Manual) 7 H (0-4) % Platelet Estimate Normal (NORMAL) Polychromasia Slight Hypochromasia (manual) Slight Anisocytosis (manual) Slight PT (9.7-12.2) SECONDS INR APTT (21-34) SECONDS Sodium 139 (132-148) mmol/L Potassium 4.2 (3.6-5.2) mmol/L Chloride 107 (98-107) mmol/L Carbon Dioxide 23 (22-30) mmol/L Anion Gap 14 (10-20) BUN 48 H (9-20) mg/dL Creatinine 2.6 H (0.8-1.5) mg/dL Est GFR ( Amer) 29 Est GFR (Non-Af Amer) 24 POC Glucose (mg/dL) 208 H (65-110) mg/dL Random Glucose 193 H (75-110) mg/dL Calcium 8.4 L (8.6-10.4) mg/dl Phosphorus 2.9 (2.5-4.5) mg/dL Magnesium 2.0 (1.6-2.3) mg/dL Total Bilirubin 1.7 H (0.2-1.3) mg/dL AST 15 L (17-59) U/L ALT 14 L (21-72) U/L Alkaline Phosphatase 87 (38-126) U/L Total Creatine Kinase (55-170) U/L CK-MB (Mass) (0.0-3.38) ng/mL Troponin I (0.00-0.120) ng/mL Total Protein 6.3 (6.3-8.3) g/dL Albumin 3.0 L (3.5-5.0) g/dL Globulin 3.2 (2.2-3.9) gm/dL Albumin/Globulin Ratio 0.9 L (1.0-2.1) Blood Type Antibody Screen 01/16/18 01/16/18 01/16/18 Range/Units 23:14 21:25 07:31 WBC (4.8-10.8) K/uL RBC (4.40-5.90) Mil/uL Hgb (12.0-18.0) g/dL Hct (35.0-51.0) % MCV (80.0-94.0) fL MCH (27.0-31.0) pg MCHC (33.0-37.0) g/dL RDW (11.5-14.5) % Plt Count (130-400) K/uL MPV (7.2-11.7) fL Neut % (Auto) (50.0-75.0) % Lymph % (Auto) (20.0-40.0) % [place] % (Auto) (0.0-10.0) % Eos % (Auto) (0.0-4.0) % Baso % (Auto) (0.0-2.0) % Neut # (Auto) (1.8-7.0) K/uL Lymph # (Auto) (1.0-4.3) K/uL [place] # (Auto) (0.0-0.8) K/uL Eos # (Auto) (0.0-0.7) K/uL Baso # (Auto) (0.0-0.2) K/uL Neutrophils % (Manual) (50-75) % Band Neutrophils % (0-2) % Lymphocytes % (Manual) (20-40) % Monocytes % (Manual) (0-10) % Eosinophils % (Manual) (0-4) % Platelet Estimate (NORMAL) Polychromasia Hypochromasia (manual) Anisocytosis (manual) PT (9.7-12.2) SECONDS INR APTT (21-34) SECONDS Sodium (132-148) mmol/L Potassium (3.6-5.2) mmol/L Chloride (98-107) mmol/L Carbon Dioxide (22-30) mmol/L Anion Gap (10-20) BUN (9-20) mg/dL Creatinine (0.8-1.5) mg/dL Est GFR ( Amer) Est GFR (Non-Af Amer) POC Glucose (mg/dL) 202 H (65-110) mg/dL Random Glucose (75-110) mg/dL Calcium (8.6-10.4) mg/dl Phosphorus (2.5-4.5) mg/dL Magnesium (1.6-2.3) mg/dL Total Bilirubin (0.2-1.3) mg/dL AST (17-59) U/L ALT (21-72) U/L Alkaline Phosphatase (38-126) U/L Total Creatine Kinase 74 (55-170) U/L CK-MB (Mass) 1.42 (0.0-3.38) ng/mL Troponin I 0.0940 (0.00-0.120) ng/mL Total Protein (6.3-8.3) g/dL Albumin (3.5-5.0) g/dL Globulin (2.2-3.9) gm/dL Albumin/Globulin Ratio (1.0-2.1) Blood Type A POSITIVE Antibody Screen Negative Laboratory Results - last 24 hr 01/16/18 01/16/18 01/16/18 07:31 21:25 23:14 WBC RBC Hgb Hct MCV MCH MCHC RDW Plt Count MPV Neut % (Auto) Lymph % (Auto) [place] % (Auto) Eos % (Auto) Baso % (Auto) Neut # (Auto) Lymph # (Auto) [place] # (Auto) Eos # (Auto) Baso # (Auto) Neutrophils % (Manual) Band Neutrophils % Lymphocytes % (Manual) Monocytes % (Manual) Eosinophils % (Manual) Platelet Estimate Polychromasia Hypochromasia (manual) Anisocytosis (manual) PT INR APTT Sodium Potassium Chloride Carbon Dioxide Anion Gap BUN Creatinine Est GFR ( Amer) Est GFR (Non-Af Amer) POC Glucose (mg/dL) 202 H Random Glucose Calcium Phosphorus Magnesium Total Bilirubin AST ALT Alkaline Phosphatase Total Creatine Kinase 74 CK-MB (Mass) 1.42 Troponin I 0.0940 Total Protein Albumin Globulin Albumin/Globulin Ratio Blood Type A POSITIVE Antibody Screen Negative 01/17/18 01/17/18 01/17/18 06:30 06:32 07:12 WBC 10.1 RBC 2.13 L Hgb 6.7 L Hct 19.2 L MCV 90.1 D MCH 31.4 H MCHC 34.8 RDW 17.8 H Plt Count 359 MPV 6.7 L Neut % (Auto) 79.4 H Lymph % (Auto) 8.1 L [place] % (Auto) 6.2 Eos % (Auto) 5.7 H Baso % (Auto) 0.6 Neut # (Auto) 8.0 H Lymph # (Auto) 0.8 L [place] # (Auto) 0.6 Eos # (Auto) 0.6 Baso # (Auto) 0.1 Neutrophils % (Manual) 82 H Band Neutrophils % 1 Lymphocytes % (Manual) 7 L Monocytes % (Manual) 3 Eosinophils % (Manual) 7 H Platelet Estimate Normal Polychromasia Slight Hypochromasia (manual) Slight Anisocytosis (manual) Slight PT INR APTT Sodium 139 Potassium 4.2 Chloride 107 Carbon Dioxide 23 Anion Gap 14 BUN 48 H Creatinine 2.6 H Est GFR ( Amer) 29 Est GFR (Non-Af Amer) 24 POC Glucose (mg/dL) 208 H Random Glucose 193 H Calcium 8.4 L Phosphorus 2.9 Magnesium 2.0 Total Bilirubin 1.7 H AST 15 L ALT 14 L Alkaline Phosphatase 87 Total Creatine Kinase CK-MB (Mass) Troponin I Total Protein 6.3 Albumin 3.0 L Globulin 3.2 Albumin/Globulin Ratio 0.9 L Blood Type Antibody Screen 01/17/18 01/17/18 01/17/18 07:31 11:02 16:12 WBC RBC Hgb Hct MCV MCH MCHC RDW Plt Count MPV Neut % (Auto) Lymph % (Auto) [place] % (Auto) Eos % (Auto) Baso % (Auto) Neut # (Auto) Lymph # (Auto) [place] # (Auto) Eos # (Auto) Baso # (Auto) Neutrophils % (Manual) Band Neutrophils % Lymphocytes % (Manual) Monocytes % (Manual) Eosinophils % (Manual) Platelet Estimate Polychromasia Hypochromasia (manual) Anisocytosis (manual) PT 35.3 H D INR 3.2 H* APTT 39 H D Sodium Potassium Chloride Carbon Dioxide Anion Gap BUN Creatinine Est GFR ( Amer) Est GFR (Non-Af Amer) POC Glucose (mg/dL) 202 H 210 H Random Glucose Calcium Phosphorus Magnesium Total Bilirubin AST ALT Alkaline Phosphatase Total Creatine Kinase CK-MB (Mass) Troponin I Total Protein Albumin Globulin Albumin/Globulin Ratio Blood Type Antibody Screen Critical Care Progress Note - Nutrition Nutrition: Nutrition Category Date Time Status Heart Healthy Diet [DIET] Diets 01/16/18 Dinner Active Attending/Attestation - Attestation I have personally seen and examined this patient.: Yes I have fully participated in the care of the patient.: Yes I have reviewed all pertinent clinical information: Yes Notes (Text): 01/17/18 19:13 patient seen and examined in the intensive care unit Continue to transfuse packed RBCs and FFP Monitor H&H Continue present treatment
[2018-01-17 08:20] LABS: INR 3.2; PROTHROMBIN TIME 35.3 SECONDS (9.7-12.2)
[2018-01-17 08:44] LABS: ANISOCYTOSIS SLIGHT; BANDS 1 % (0-2); EOSINOPHIL 7 % (0-4); LYMPHOCYTE 7 % (20-40); MONOCYTE 3 % (0-10); NEUTROPHIL 82 % (50-75); PLATELET ESTIMATE NORMAL (NORMAL); TOTAL CELLS COUNTED 100
[2018-01-17 08:45] LABS: HYPOCHROMIC SLIGHT; POLYCHROMIC SLIGHT
[2018-01-17] MEDS: Vancomycin 1 gm/NS 200 ml 1 GM/200 ML BAG IVPB SCH (10:45)
[2018-01-17] MEDS: HYDROmorphone 1 mg/ml ISec IVP PRN ×3 (12:00→23:43)
[2018-01-17] MEDS: Sodium Chloride 0.9% 1,000 ML IV SCH (15:45)
[2018-01-17 23:58] LABS: BASO # 0.1 K/uL (0.0-0.2); EOS # 0.8 K/uL (0.0-0.7); HEMOGLOBIN 9.3 g/dL (12.0-18.0); LYMPH # 1.8 K/uL (1.0-4.3); LYMPH % 14.3 % (20.0-40.0); MEAN CELL VOLUME 89.2 fL (80.0-94.0); MEAN CORPUSCULAR HEMOGLOBIN 30.7 pg (27.0-31.0); MEAN CORPUSCULAR HGB CONC 34.4 g/dL (33.0-37.0); MEAN PLATELET VOLUME 6.9 fL (7.2-11.7); MONO # 0.8 K/uL (0.0-0.8); MONO % 6.6 % (0.0-10.0); NEUT # 9.3 K/uL (1.8-7.0); NEUT % 72.1 % (50.0-75.0); RBC 3.04 Mil/uL (4.40-5.90); RED CELL DISTRIBUTION WIDTH 16.2 % (11.5-14.5); WHITE BLOOD COUNT 12.9 K/uL (4.8-10.8)
[2018-01-18] MEDS: Piperacillin/Tazobact 3.375 GM in Sodium Chloride 100 ML IVPB SCH ×4 (04:30→22:30)
[2018-01-18 06:29] LABS: BASO # 0.1 K/uL (0.0-0.2); BASO % 0.9 % (0.0-2.0); EOS # 0.4 K/uL (0.0-0.7); EOS % 3.5 % (0.0-4.0); HEMOGLOBIN 8.8 g/dL (12.0-18.0); LYMPH # 1.1 K/uL (1.0-4.3); LYMPH % 10.2 % (20.0-40.0); MEAN CELL VOLUME 89.4 fL (80.0-94.0); MEAN CORPUSCULAR HEMOGLOBIN 31.1 pg (27.0-31.0); MEAN CORPUSCULAR HGB CONC 34.8 g/dL (33.0-37.0); MONO # 0.7 K/uL (0.0-0.8); MONO % 6.8 % (0.0-10.0); NEUT # 8.4 K/uL (1.8-7.0); NEUT % 78.6 % (50.0-75.0); NRBC % 0.1 % (0.0-2.0); RBC 2.83 Mil/uL (4.40-5.90); RED CELL DISTRIBUTION WIDTH 15.8 % (11.5-14.5); WHITE BLOOD COUNT 10.6 K/uL (4.8-10.8)
[2018-01-18 06:35] LABS: ALBUMIN 3.4 g/dL (3.5-5.0); CALCIUM 9.1 mg/dl (8.6-10.4)
[2018-01-18 08:44] LABS: PROTHROMBIN TIME 32.4 SECONDS (9.7-12.2)
[2018-01-18] MEDS ORDERED: Glucagon Recombinant 1 mg Inj IM PRN (08:45)
[2018-01-18] MEDS ORDERED: Dextrose 50% SYRINGE Inj (50 ml) IV PRN (08:45)
[2018-01-18] MEDS: HYDROmorphone 1 mg/ml ISec IVP PRN ×3 (08:54→22:31)
--- NOTE | 2018-01-18 09:10 | CP.CCUPN ---
<Jose Kerr - Last Filed: 01/18/18 18:27> CCU Subjective - Physician Review Subjective (Free Text): 01/17/18 08:16 Patient seen and examined at bedside. No acute events overnight. Patient received 2 units of PRBC and 1 unit of FFP last night. Additional 2 units of PRBC and 2 units of FFP's ordered for today. 01/18/18 10:46 Patient examined at bedside, no acute events overnight. 2 units of FFP ordered for today. Critical Care Time Spent (in minutes): 35 CCU Objective - Vital Signs / Intake & Output Vital Signs (Last 4 hours): Vital Signs Pulse Resp BP Pulse Ox 01/18/18 06:34 138/86 01/18/18 06:33 116 H 24 98 01/18/18 06:03 119 H 22 94 L Intake and Output (Last 8hrs): Intake & Output 01/17/18 01/18/18 01/18/18 22:59 06:59 14:59 Intake Total 1070 320 Output Total 390 555 Balance 680 -235 Weight 210 lb Intake: Intake, IV Amount 645 320 Left Antecubital 325 Right Forearm 320 320 Blood Product 325 Red Blood Cells Cpd As1 325 Lr Unit [id number] Other 100 Red Blood Cells Cpd As1 100 Lr Unit [id number] Output: Urine 390 555 Urethral (Lord) 390 555 - Physical Exam Head: Positive for: Atraumatic, Normocephalic Pupils: Positive for: PERRL Extroacular Muscles: Positive for: EOMI Conjunctiva: Positive for: Normal Mouth: Positive for: Moist Mucous Membranes Respiratory/Chest: Positive for: Clear to Auscultation, Good Air Exchange. Negative for: Respiratory Distress, Accessory Muscle Use, Wheezes, Rales, Rhonchi Cardiovascular: Positive for: Normal S1, S2, Irregular Rhythm, Tachycardic. Negative for: Murmurs, Rub, Gallop Abdomen: Positive for: Normal Bowel Sounds. Negative for: Tenderness, Distention, Peritoneal Signs Upper Extremity: Positive for: Normal Inspection. Negative for: Cyanosis, Edema Lower Extremity: Positive for: NORMAL PULSES, Tenderness, Swelling, Capillary Refill < 2 s, Other (Hematoma noted on medial right thigh and right lower leg. Tender to palpation on both legs). Negative for: Normal Inspection, Cyanosis Neurological: Positive for: GCS=15, CN II-XII Intact Skin: Positive for: Warm, Dry, Normal Color. Negative for: Rashes Psychiatric: Positive for: Alert, Oriented x 3, Normal Insight, Normal Concentration - Medications Active Medications: Active Medications Generic Name Dose Route Start Last Admin Trade Name Freq PRN Reason Stop Dose Admin Dextrose 0 ml 01/18/18 08:45 Dextrose 50% Inj IV STAT PRN Hypoglycemia Protocol Protocol Dextrose 0 gm 01/18/18 08:53 Glutose 15 PO ONCE PRN Hypoglycemia Protocol Protocol Glucagon 0 mg 01/18/18 08:45 Glucagen Diagnostic Kit IM STAT PRN Hypoglycemia Protocol Protocol Hydromorphone HCl 1 mg 01/17/18 10:22 01/18/18 08:54 Dilaudid IVP 1 mg Q3H PRN Administration Pain, severe (8-10) Sodium Chloride 1,000 mls @ 40 mls/hr 01/16/18 14:00 01/17/18 15:45 Sodium Chloride 0.9% IV Not Given .Q24H RENA Piperacillin Sod/Tazobactam 100 mls @ 200 mls/hr 01/16/18 17:00 01/18/18 04:30 Sod 3.375 gm/ Sodium Chloride IVPB 200 mls/hr Q6H RENA Administration Protocol Vancomycin/Sodium Chloride 1 gm in 200 mls @ 133 mls/hr 01/16/18 17:00 01/17/18 10:45 Vancomycin 1 Gm/Ns 200 Ml IVPB 01/21/18 17:01 133 mls/hr DAILY RENA Administration Protocol Dextrose 1,000 mls @ 0 mls/hr 01/18/18 08:53 Dextrose 5% In Water 1000 Ml IV .Q0M PRN Hypoglycemia Protocol Protocol Per Protocol Insulin Human Isoph/Insulin Regular 0 units 01/18/18 11:30 Novolin 70/30 (70/30 Units/Ml) 10 Ml SC ACHS RENA Protocol Pantoprazole Sodium 40 mg 01/17/18 10:00 01/17/18 10:10 Protonix Inj IVP 40 mg DAILY RENA Administration - Patient Studies Lab Studies: Microbiology Studies 01/16/18 22:32 Gram Stain - Final Penis Lab Studies 01/18/18 01/18/18 01/18/18 Range/Units 08:24 07:29 05:53 WBC (4.8-10.8) K/uL RBC (4.40-5.90) Mil/uL Hgb (12.0-18.0) g/dL Hct (35.0-51.0) % MCV (80.0-94.0) fL MCH (27.0-31.0) pg MCHC (33.0-37.0) g/dL RDW (11.5-14.5) % Plt Count (130-400) K/uL MPV (7.2-11.7) fL Neut % (Auto) (50.0-75.0) % Lymph % (Auto) (20.0-40.0) % [place] % (Auto) (0.0-10.0) % Eos % (Auto) (0.0-4.0) % Baso % (Auto) (0.0-2.0) % Neut # (Auto) (1.8-7.0) K/uL Lymph # (Auto) (1.0-4.3) K/uL [place] # (Auto) (0.0-0.8) K/uL Eos # (Auto) (0.0-0.7) K/uL Baso # (Auto) (0.0-0.2) K/uL PT 32.4 H (9.7-12.2) SECONDS INR 3.0 APTT 40 H (21-34) SECONDS Sodium 142 (132-148) mmol/L Potassium 4.4 (3.6-5.2) mmol/L Chloride 108 H (98-107) mmol/L Carbon Dioxide 23 (22-30) mmol/L Anion Gap 15 (10-20) BUN 40 H (9-20) mg/dL Creatinine 2.6 H (0.8-1.5) mg/dL Est GFR ( Amer) 29 Est GFR (Non-Af Amer) 24 POC Glucose (mg/dL) 193 H (65-110) mg/dL Random Glucose 178 H (75-110) mg/dL Calcium 9.1 (8.6-10.4) mg/dl Phosphorus 2.9 (2.5-4.5) mg/dL Magnesium 2.0 (1.6-2.3) mg/dL Total Bilirubin 2.2 H (0.2-1.3) mg/dL AST 14 L (17-59) U/L ALT 20 L D (21-72) U/L Alkaline Phosphatase 95 (38-126) U/L Total Protein 6.9 (6.3-8.3) g/dL Albumin 3.4 L (3.5-5.0) g/dL Globulin 3.5 (2.2-3.9) gm/dL Albumin/Globulin Ratio 1.0 (1.0-2.1) Blood Type Antibody Screen 01/18/18 01/17/18 01/17/18 Range/Units 05:52 23:55 21:22 WBC 10.6 12.9 H (4.8-10.8) K/uL RBC 2.83 L 3.04 L (4.40-5.90) Mil/uL Hgb 8.8 L 9.3 L D (12.0-18.0) g/dL Hct 25.3 L 27.1 L (35.0-51.0) % MCV 89.4 89.2 (80.0-94.0) fL MCH 31.1 H 30.7 (27.0-31.0) pg MCHC 34.8 34.4 (33.0-37.0) g/dL RDW 15.8 H 16.2 H (11.5-14.5) % Plt Count 383 389 (130-400) K/uL MPV 7.0 L 6.9 L (7.2-11.7) fL Neut % (Auto) 78.6 H 72.1 (50.0-75.0) % Lymph % (Auto) 10.2 L 14.3 L (20.0-40.0) % [place] % (Auto) 6.8 6.6 (0.0-10.0) % Eos % (Auto) 3.5 6.0 H (0.0-4.0) % Baso % (Auto) 0.9 1.0 (0.0-2.0) % Neut # (Auto) 8.4 H 9.3 H (1.8-7.0) K/uL Lymph # (Auto) 1.1 1.8 (1.0-4.3) K/uL [place] # (Auto) 0.7 0.8 (0.0-0.8) K/uL Eos # (Auto) 0.4 0.8 H (0.0-0.7) K/uL Baso # (Auto) 0.1 0.1 (0.0-0.2) K/uL PT (9.7-12.2) SECONDS INR APTT (21-34) SECONDS Sodium (132-148) mmol/L Potassium (3.6-5.2) mmol/L Chloride (98-107) mmol/L Carbon Dioxide (22-30) mmol/L Anion Gap (10-20) BUN (9-20) mg/dL Creatinine (0.8-1.5) mg/dL Est GFR ( Amer) Est GFR (Non-Af Amer) POC Glucose (mg/dL) 167 H (65-110) mg/dL Random Glucose (75-110) mg/dL Calcium (8.6-10.4) mg/dl Phosphorus (2.5-4.5) mg/dL Magnesium (1.6-2.3) mg/dL Total Bilirubin (0.2-1.3) mg/dL AST (17-59) U/L ALT (21-72) U/L Alkaline Phosphatase (38-126) U/L Total Protein (6.3-8.3) g/dL Albumin (3.5-5.0) g/dL Globulin (2.2-3.9) gm/dL Albumin/Globulin Ratio (1.0-2.1) Blood Type Antibody Screen 01/17/18 01/17/18 01/17/18 Range/Units 16:12 11:02 07:12 WBC (4.8-10.8) K/uL RBC (4.40-5.90) Mil/uL Hgb (12.0-18.0) g/dL Hct (35.0-51.0) % MCV (80.0-94.0) fL MCH (27.0-31.0) pg MCHC (33.0-37.0) g/dL RDW (11.5-14.5) % Plt Count (130-400) K/uL MPV (7.2-11.7) fL Neut % (Auto) (50.0-75.0) % Lymph % (Auto) (20.0-40.0) % [place] % (Auto) (0.0-10.0) % Eos % (Auto) (0.0-4.0) % Baso % (Auto) (0.0-2.0) % Neut # (Auto) (1.8-7.0) K/uL Lymph # (Auto) (1.0-4.3) K/uL [place] # (Auto) (0.0-0.8) K/uL Eos # (Auto) (0.0-0.7) K/uL Baso # (Auto) (0.0-0.2) K/uL PT (9.7-12.2) SECONDS INR APTT (21-34) SECONDS Sodium (132-148) mmol/L Potassium (3.6-5.2) mmol/L Chloride (98-107) mmol/L Carbon Dioxide (22-30) mmol/L Anion Gap (10-20) BUN (9-20) mg/dL Creatinine (0.8-1.5) mg/dL Est GFR ( Amer) Est GFR (Non-Af Amer) POC Glucose (mg/dL) 210 H 202 H 208 H (65-110) mg/dL Random Glucose (75-110) mg/dL Calcium (8.6-10.4) mg/dl Phosphorus (2.5-4.5) mg/dL Magnesium (1.6-2.3) mg/dL Total Bilirubin (0.2-1.3) mg/dL AST (17-59) U/L ALT (21-72) U/L Alkaline Phosphatase (38-126) U/L Total Protein (6.3-8.3) g/dL Albumin (3.5-5.0) g/dL Globulin (2.2-3.9) gm/dL Albumin/Globulin Ratio (1.0-2.1) Blood Type Antibody Screen 01/16/18 Range/Units 07:31 WBC (4.8-10.8) K/uL RBC (4.40-5.90) Mil/uL Hgb (12.0-18.0) g/dL Hct (35.0-51.0) % MCV (80.0-94.0) fL MCH (27.0-31.0) pg MCHC (33.0-37.0) g/dL RDW (11.5-14.5) % Plt Count (130-400) K/uL MPV (7.2-11.7) fL Neut % (Auto) (50.0-75.0) % Lymph % (Auto) (20.0-40.0) % [place] % (Auto) (0.0-10.0) % Eos % (Auto) (0.0-4.0) % Baso % (Auto) (0.0-2.0) % Neut # (Auto) (1.8-7.0) K/uL Lymph # (Auto) (1.0-4.3) K/uL [place] # (Auto) (0.0-0.8) K/uL Eos # (Auto) (0.0-0.7) K/uL Baso # (Auto) (0.0-0.2) K/uL PT (9.7-12.2) SECONDS INR APTT (21-34) SECONDS Sodium (132-148) mmol/L Potassium (3.6-5.2) mmol/L Chloride (98-107) mmol/L Carbon Dioxide (22-30) mmol/L Anion Gap (10-20) BUN (9-20) mg/dL Creatinine (0.8-1.5) mg/dL Est GFR ( Amer) Est GFR (Non-Af Amer) POC Glucose (mg/dL) (65-110) mg/dL Random Glucose (75-110) mg/dL Calcium (8.6-10.4) mg/dl Phosphorus (2.5-4.5) mg/dL Magnesium (1.6-2.3) mg/dL Total Bilirubin (0.2-1.3) mg/dL AST (17-59) U/L ALT (21-72) U/L Alkaline Phosphatase (38-126) U/L Total Protein (6.3-8.3) g/dL Albumin (3.5-5.0) g/dL Globulin (2.2-3.9) gm/dL Albumin/Globulin Ratio (1.0-2.1) Blood Type A POSITIVE Antibody Screen Negative Laboratory Results - last 24 hr 01/16/18 01/17/18 01/17/18 07:31 07:12 11:02 WBC RBC Hgb Hct MCV MCH MCHC RDW Plt Count MPV Neut % (Auto) Lymph % (Auto) [place] % (Auto) Eos % (Auto) Baso % (Auto) Neut # (Auto) Lymph # (Auto) [place] # (Auto) Eos # (Auto) Baso # (Auto) PT INR APTT Sodium Potassium Chloride Carbon Dioxide Anion Gap BUN Creatinine Est GFR ( Amer) Est GFR (Non-Af Amer) POC Glucose (mg/dL) 208 H 202 H Random Glucose Calcium Phosphorus Magnesium Total Bilirubin AST ALT Alkaline Phosphatase Total Protein Albumin Globulin Albumin/Globulin Ratio Blood Type A POSITIVE Antibody Screen Negative 01/17/18 01/17/18 01/17/18 16:12 21:22 23:55 WBC 12.9 H RBC 3.04 L Hgb 9.3 L D Hct 27.1 L MCV 89.2 MCH 30.7 MCHC 34.4 RDW 16.2 H Plt Count 389 MPV 6.9 L Neut % (Auto) 72.1 Lymph % (Auto) 14.3 L [place] % (Auto) 6.6 Eos % (Auto) 6.0 H Baso % (Auto) 1.0 Neut # (Auto) 9.3 H Lymph # (Auto) 1.8 [place] # (Auto) 0.8 Eos # (Auto) 0.8 H Baso # (Auto) 0.1 PT INR APTT Sodium Potassium Chloride Carbon Dioxide Anion Gap BUN Creatinine Est GFR ( Amer) Est GFR (Non-Af Amer) POC Glucose (mg/dL) 210 H 167 H Random Glucose Calcium Phosphorus Magnesium Total Bilirubin AST ALT Alkaline Phosphatase Total Protein Albumin Globulin Albumin/Globulin Ratio Blood Type Antibody Screen 01/18/18 01/18/18 01/18/18 05:52 05:53 07:29 WBC 10.6 RBC 2.83 L Hgb 8.8 L Hct 25.3 L MCV 89.4 MCH 31.1 H MCHC 34.8 RDW 15.8 H Plt Count 383 MPV 7.0 L Neut % (Auto) 78.6 H Lymph % (Auto) 10.2 L [place] % (Auto) 6.8 Eos % (Auto) 3.5 Baso % (Auto) 0.9 Neut # (Auto) 8.4 H Lymph # (Auto) 1.1 [place] # (Auto) 0.7 Eos # (Auto) 0.4 Baso # (Auto) 0.1 PT INR APTT Sodium 142 Potassium 4.4 Chloride 108 H Carbon Dioxide 23 Anion Gap 15 BUN 40 H Creatinine 2.6 H Est GFR ( Amer) 29 Est GFR (Non-Af Amer) 24 POC Glucose (mg/dL) 193 H Random Glucose 178 H Calcium 9.1 Phosphorus 2.9 Magnesium 2.0 Total Bilirubin 2.2 H AST 14 L ALT 20 L D Alkaline Phosphatase 95 Total Protein 6.9 Albumin 3.4 L Globulin 3.5 Albumin/Globulin Ratio 1.0 Blood Type Antibody Screen 01/18/18 08:24 WBC RBC Hgb Hct MCV MCH MCHC RDW Plt Count MPV Neut % (Auto) Lymph % (Auto) [place] % (Auto) Eos % (Auto) Baso % (Auto) Neut # (Auto) Lymph # (Auto) [place] # (Auto) Eos # (Auto) Baso # (Auto) PT 32.4 H INR 3.0 APTT 40 H Sodium Potassium Chloride Carbon Dioxide Anion Gap BUN Creatinine Est GFR ( Amer) Est GFR (Non-Af Amer) POC Glucose (mg/dL) Random Glucose Calcium Phosphorus Magnesium Total Bilirubin AST ALT Alkaline Phosphatase Total Protein Albumin Globulin Albumin/Globulin Ratio Blood Type Antibody Screen Fingerstick Blood Sugar Results: 167 Critical Care Progress Note - Nutrition Nutrition: Nutrition Category Date Time Status Heart Healthy Diet [DIET] Diets 01/16/18 Dinner Active Assessment/Plan - Assessment and Plan (Free Text) Assessment: Patient is a 77 year old male with PMHx of atrial fibrillation on warfarin, HTN, CAD, DM-2, hypothyroidism, and HLD presenting with right leg pain after a fall. Hb/Hct was 5.6/16.4 on admission. Plan: Neuro: - Patient is AAO x 3 Pulm: - LE venous duplex: f/u Cardiovascular: - Troponin: 0.04 - Echo: f/u - Pro-BNP: 4550 Heme: - Hb: 8.8 - S/p 4 units of PRBC since admission - INR: 3.2-->3.0 - S/p 3 unit of FFP since admission - Ordered 2 x FFP today Renal: - BUN/Cr: 40/2.6- downtrending - NS @ 40mls/hr - Continue home medication Amlodipine 5mg PO QD, hold Losartan Endo: - Accuchecks ACHS - ISS - Hypoglycemia protocol - Continue home medication Synthroid 25mg PO QD GI: - FOBT: negative Skin: - Lower extremity CT (01/16): Large intramuscular hematoma within most of the mid thigh apparently within the vastus medialis and intermedius. There are diffuse infiltration changes seen throughout the subcutaneous tissues of the left thigh extending distally to the level of the ankle region. Findings likely due to edema however the possibility of a cellulitis not excluded. Small suprapatellar joint effusion. - See full report - Dilaudid 1mg IV Q3 PRN ID: - Zosyn 3.375g IV Q6H (Started on 01/16) - Vancomycin 1g IV QD (Started on 01/16) - Penis wound culture (01/16): no growth to date Prophylaxis: - Protonix 40mg IVP QD - Contraindication for SCD's and VTE prophylaxis Case discussed with Dr. Rico Kerr, PGY-1 <Anderson Gómez S - Last Filed: 01/18/18 18:36> CCU Objective - Vital Signs / Intake & Output Vital Signs (Last 4 hours): Vital Signs Temp Pulse Resp BP Pulse Ox 01/18/18 17:10 121 H 13 143/97 H 98 01/18/18 17:00 123 H 16 97 01/18/18 16:55 124 H 16 147/98 H 96 01/18/18 16:40 129 H 20 157/106 H 99 01/18/18 16:25 119 H 26 H 149/103 H 99 01/18/18 16:10 128 H 21 156/105 H 99 01/18/18 16:00 98.2 F 126 H 17 99 01/18/18 15:55 120 H 14 140/87 99 01/18/18 15:41 121 H 13 137/81 98 01/18/18 15:25 127 H 16 165/109 H 98 01/18/18 15:10 123 H 20 166/104 H 100 01/18/18 15:00 125 H 12 98 01/18/18 14:55 128 H 19 160/102 H 97 01/18/18 14:40 121 H 25 H 159/105 H 97 Intake and Output (Last 8hrs): Intake & Output 01/18/18 01/18/18 01/18/18 06:59 14:59 22:59 Intake Total 320 1090 355 Output Total 555 485 205 Balance -235 605 150 Weight 210 lb Intake: Intake, IV Amount 320 670 255 Left Upper arm 670 255 Right Forearm 320 Oral 420 100 Output: Urine 555 485 205 Urethral (Lord) 555 485 205 Stool 0 - Medications Active Medications: Active Medications Generic Name Dose Route Start Last Admin Trade Name Freq PRN Reason Stop Dose Admin Amlodipine Besylate 5 mg 01/18/18 15:00 01/18/18 15:11 Norvasc PO 5 mg DAILY RENA Administration Dextrose 0 ml 01/18/18 08:45 Dextrose 50% Inj IV STAT PRN Hypoglycemia Protocol Protocol Dextrose 0 gm 01/18/18 08:53 Glutose 15 PO ONCE PRN Hypoglycemia Protocol Protocol Glucagon 0 mg 01/18/18 08:45 Glucagen Diagnostic Kit IM STAT PRN Hypoglycemia Protocol Protocol Hydromorphone HCl 1 mg 01/17/18 10:22 01/18/18 15:25 Dilaudid IVP 1 mg Q3H PRN Administration Pain, severe (8-10) Sodium Chloride 1,000 mls @ 40 mls/hr 01/16/18 14:00 01/18/18 14:00 Sodium Chloride 0.9% IV Not Given .Q24H RENA Piperacillin Sod/Tazobactam 100 mls @ 200 mls/hr 01/16/18 17:00 01/18/18 17:42 Sod 3.375 gm/ Sodium Chloride IVPB 200 mls/hr Q6H RENA Administration Protocol Vancomycin/Sodium Chloride 1 gm in 200 mls @ 133 mls/hr 01/16/18 17:00 01/18/18 10:43 Vancomycin 1 Gm/Ns 200 Ml IVPB 01/21/18 17:01 133 mls/hr DAILY RENA Administration Protocol Dextrose 1,000 mls @ 0 mls/hr 01/18/18 08:53 Dextrose 5% In Water 1000 Ml IV .Q0M PRN Hypoglycemia Protocol Protocol Per Protocol Insulin Human Regular 0 unit 01/18/18 11:30 01/18/18 17:15 Novolin R SC 2 unit ACHS RENA Administration Protocol Levothyroxine Sodium 25 mcg 01/19/18 06:30 Synthroid PO DAILY@0630 RENA Pantoprazole Sodium 40 mg 01/17/18 10:00 01/18/18 10:55 Protonix Inj IVP 40 mg DAILY RENA Administration - Patient Studies Lab Studies: Microbiology Studies 01/16/18 22:32 Gram Stain - Final Penis Lab Studies 01/18/18 01/18/18 01/18/18 Range/Units 16:20 11:17 08:24 WBC (4.8-10.8) K/uL RBC (4.40-5.90) Mil/uL Hgb (12.0-18.0) g/dL Hct (35.0-51.0) % MCV (80.0-94.0) fL MCH (27.0-31.0) pg MCHC (33.0-37.0) g/dL RDW (11.5-14.5) % Plt Count (130-400) K/uL MPV (7.2-11.7) fL Neut % (Auto) (50.0-75.0) % Lymph % (Auto) (20.0-40.0) % [place] % (Auto) (0.0-10.0) % Eos % (Auto) (0.0-4.0) % Baso % (Auto) (0.0-2.0) % Neut # (Auto) (1.8-7.0) K/uL Lymph # (Auto) (1.0-4.3) K/uL [place] # (Auto) (0.0-0.8) K/uL Eos # (Auto) (0.0-0.7) K/uL Baso # (Auto) (0.0-0.2) K/uL PT 32.4 H (9.7-12.2) SECONDS INR 3.0 APTT 40 H (21-34) SECONDS Sodium (132-148) mmol/L Potassium (3.6-5.2) mmol/L Chloride (98-107) mmol/L Carbon Dioxide (22-30) mmol/L Anion Gap (10-20) BUN (9-20) mg/dL Creatinine (0.8-1.5) mg/dL Est GFR ( Amer) Est GFR (Non-Af Amer) POC Glucose (mg/dL) 189 H 175 H (65-110) mg/dL Random Glucose (75-110) mg/dL Calcium (8.6-10.4) mg/dl Phosphorus (2.5-4.5) mg/dL Magnesium (1.6-2.3) mg/dL Total Bilirubin (0.2-1.3) mg/dL AST (17-59) U/L ALT (21-72) U/L Alkaline Phosphatase (38-126) U/L Total Protein (6.3-8.3) g/dL Albumin (3.5-5.0) g/dL Globulin (2.2-3.9) gm/dL Albumin/Globulin Ratio (1.0-2.1) 01/18/18 01/18/18 01/18/18 Range/Units 07:29 05:53 05:52 WBC 10.6 (4.8-10.8) K/uL RBC 2.83 L (4.40-5.90) Mil/uL Hgb 8.8 L (12.0-18.0) g/dL Hct 25.3 L (35.0-51.0) % MCV 89.4 (80.0-94.0) fL MCH 31.1 H (27.0-31.0) pg MCHC 34.8 (33.0-37.0) g/dL RDW 15.8 H (11.5-14.5) % Plt Count 383 (130-400) K/uL MPV 7.0 L (7.2-11.7) fL Neut % (Auto) 78.6 H (50.0-75.0) % Lymph % (Auto) 10.2 L (20.0-40.0) % [place] % (Auto) 6.8 (0.0-10.0) % Eos % (Auto) 3.5 (0.0-4.0) % Baso % (Auto) 0.9 (0.0-2.0) % Neut # (Auto) 8.4 H (1.8-7.0) K/uL Lymph # (Auto) 1.1 (1.0-4.3) K/uL [place] # (Auto) 0.7 (0.0-0.8) K/uL Eos # (Auto) 0.4 (0.0-0.7) K/uL Baso # (Auto) 0.1 (0.0-0.2) K/uL PT (9.7-12.2) SECONDS INR APTT (21-34) SECONDS Sodium 142 (132-148) mmol/L Potassium 4.4 (3.6-5.2) mmol/L Chloride 108 H (98-107) mmol/L Carbon Dioxide 23 (22-30) mmol/L Anion Gap 15 (10-20) BUN 40 H (9-20) mg/dL Creatinine 2.6 H (0.8-1.5) mg/dL Est GFR ( Amer) 29 Est GFR (Non-Af Amer) 24 POC Glucose (mg/dL) 193 H (65-110) mg/dL Random Glucose 178 H (75-110) mg/dL Calcium 9.1 (8.6-10.4) mg/dl Phosphorus 2.9 (2.5-4.5) mg/dL Magnesium 2.0 (1.6-2.3) mg/dL Total Bilirubin 2.2 H (0.2-1.3) mg/dL AST 14 L (17-59) U/L ALT 20 L D (21-72) U/L Alkaline Phosphatase 95 (38-126) U/L Total Protein 6.9 (6.3-8.3) g/dL Albumin 3.4 L (3.5-5.0) g/dL Globulin 3.5 (2.2-3.9) gm/dL Albumin/Globulin Ratio 1.0 (1.0-2.1) 01/17/18 01/17/18 01/17/18 Range/Units 23:55 21:22 16:12 WBC 12.9 H (4.8-10.8) K/uL RBC 3.04 L (4.40-5.90) Mil/uL Hgb 9.3 L D (12.0-18.0) g/dL Hct 27.1 L (35.0-51.0) % MCV 89.2 (80.0-94.0) fL MCH 30.7 (27.0-31.0) pg MCHC 34.4 (33.0-37.0) g/dL RDW 16.2 H (11.5-14.5) % Plt Count 389 (130-400) K/uL MPV 6.9 L (7.2-11.7) fL Neut % (Auto) 72.1 (50.0-75.0) % Lymph % (Auto) 14.3 L (20.0-40.0) % [place] % (Auto) 6.6 (0.0-10.0) % Eos % (Auto) 6.0 H (0.0-4.0) % Baso % (Auto) 1.0 (0.0-2.0) % Neut # (Auto) 9.3 H (1.8-7.0) K/uL Lymph # (Auto) 1.8 (1.0-4.3) K/uL [place] # (Auto) 0.8 (0.0-0.8) K/uL Eos # (Auto) 0.8 H (0.0-0.7) K/uL Baso # (Auto) 0.1 (0.0-0.2) K/uL PT (9.7-12.2) SECONDS INR APTT (21-34) SECONDS Sodium (132-148) mmol/L Potassium (3.6-5.2) mmol/L Chloride (98-107) mmol/L Carbon Dioxide (22-30) mmol/L Anion Gap (10-20) BUN (9-20) mg/dL Creatinine (0.8-1.5) mg/dL Est GFR ( Amer) Est GFR (Non-Af Amer) POC Glucose (mg/dL) 167 H 210 H (65-110) mg/dL Random Glucose (75-110) mg/dL Calcium (8.6-10.4) mg/dl Phosphorus (2.5-4.5) mg/dL Magnesium (1.6-2.3) mg/dL Total Bilirubin (0.2-1.3) mg/dL AST (17-59) U/L ALT (21-72) U/L Alkaline Phosphatase (38-126) U/L Total Protein (6.3-8.3) g/dL Albumin (3.5-5.0) g/dL Globulin (2.2-3.9) gm/dL Albumin/Globulin Ratio (1.0-2.1) 01/17/18 01/17/18 Range/Units 11:02 07:12 WBC (4.8-10.8) K/uL RBC (4.40-5.90) Mil/uL Hgb (12.0-18.0) g/dL Hct (35.0-51.0) % MCV (80.0-94.0) fL MCH (27.0-31.0) pg MCHC (33.0-37.0) g/dL RDW (11.5-14.5) % Plt Count (130-400) K/uL MPV (7.2-11.7) fL Neut % (Auto) (50.0-75.0) % Lymph % (Auto) (20.0-40.0) % [place] % (Auto) (0.0-10.0) % Eos % (Auto) (0.0-4.0) % Baso % (Auto) (0.0-2.0) % Neut # (Auto) (1.8-7.0) K/uL Lymph # (Auto) (1.0-4.3) K/uL [place] # (Auto) (0.0-0.8) K/uL Eos # (Auto) (0.0-0.7) K/uL Baso # (Auto) (0.0-0.2) K/uL PT (9.7-12.2) SECONDS INR APTT (21-34) SECONDS Sodium (132-148) mmol/L Potassium (3.6-5.2) mmol/L Chloride (98-107) mmol/L Carbon Dioxide (22-30) mmol/L Anion Gap (10-20) BUN (9-20) mg/dL Creatinine (0.8-1.5) mg/dL Est GFR ( Amer) Est GFR (Non-Af Amer) POC Glucose (mg/dL) 202 H 208 H (65-110) mg/dL Random Glucose (75-110) mg/dL Calcium (8.6-10.4) mg/dl Phosphorus (2.5-4.5) mg/dL Magnesium (1.6-2.3) mg/dL Total Bilirubin (0.2-1.3) mg/dL AST (17-59) U/L ALT (21-72) U/L Alkaline Phosphatase (38-126) U/L Total Protein (6.3-8.3) g/dL Albumin (3.5-5.0) g/dL Globulin (2.2-3.9) gm/dL Albumin/Globulin Ratio (1.0-2.1) Laboratory Results - last 24 hr 01/17/18 01/17/18 01/17/18 07:12 11:02 16:12 WBC RBC Hgb Hct MCV MCH MCHC RDW Plt Count MPV Neut % (Auto) Lymph % (Auto) [place] % (Auto) Eos % (Auto) Baso % (Auto) Neut # (Auto) Lymph # (Auto) [place] # (Auto) Eos # (Auto) Baso # (Auto) PT INR APTT Sodium Potassium Chloride Carbon Dioxide Anion Gap BUN Creatinine Est GFR ( Amer) Est GFR (Non-Af Amer) POC Glucose (mg/dL) 208 H 202 H 210 H Random Glucose Calcium Phosphorus Magnesium Total Bilirubin AST ALT Alkaline Phosphatase Total Protein Albumin Globulin Albumin/Globulin Ratio 01/17/18 01/17/18 01/18/18 21:22 23:55 05:52 WBC 12.9 H 10.6 RBC 3.04 L 2.83 L Hgb 9.3 L D 8.8 L Hct 27.1 L 25.3 L MCV 89.2 89.4 MCH 30.7 31.1 H MCHC 34.4 34.8 RDW 16.2 H 15.8 H Plt Count 389 383 MPV 6.9 L 7.0 L Neut % (Auto) 72.1 78.6 H Lymph % (Auto) 14.3 L 10.2 L [place] % (Auto) 6.6 6.8 Eos % (Auto) 6.0 H 3.5 Baso % (Auto) 1.0 0.9 Neut # (Auto) 9.3 H 8.4 H Lymph # (Auto) 1.8 1.1 [place] # (Auto) 0.8 0.7 Eos # (Auto) 0.8 H 0.4 Baso # (Auto) 0.1 0.1 PT INR APTT Sodium Potassium Chloride Carbon Dioxide Anion Gap BUN Creatinine Est GFR ( Amer) Est GFR (Non-Af Amer) POC Glucose (mg/dL) 167 H Random Glucose Calcium Phosphorus Magnesium Total Bilirubin AST ALT Alkaline Phosphatase Total Protein Albumin Globulin Albumin/Globulin Ratio 01/18/18 01/18/18 01/18/18 05:53 07:29 08:24 WBC RBC Hgb Hct MCV MCH MCHC RDW Plt Count MPV Neut % (Auto) Lymph % (Auto) [place] % (Auto) Eos % (Auto) Baso % (Auto) Neut # (Auto) Lymph # (Auto) [place] # (Auto) Eos # (Auto) Baso # (Auto) PT 32.4 H INR 3.0 APTT 40 H Sodium 142 Potassium 4.4 Chloride 108 H Carbon Dioxide 23 Anion Gap 15 BUN 40 H Creatinine 2.6 H Est GFR ( Amer) 29 Est GFR (Non-Af Amer) 24 POC Glucose (mg/dL) 193 H Random Glucose 178 H Calcium 9.1 Phosphorus 2.9 Magnesium 2.0 Total Bilirubin 2.2 H AST 14 L ALT 20 L D Alkaline Phosphatase 95 Total Protein 6.9 Albumin 3.4 L Globulin 3.5 Albumin/Globulin Ratio 1.0 01/18/18 01/18/18 11:17 16:20 WBC RBC Hgb Hct MCV MCH MCHC RDW Plt Count MPV Neut % (Auto) Lymph % (Auto) [place] % (Auto) Eos % (Auto) Baso % (Auto) Neut # (Auto) Lymph # (Auto) [place] # (Auto) Eos # (Auto) Baso # (Auto) PT INR APTT Sodium Potassium Chloride Carbon Dioxide Anion Gap BUN Creatinine Est GFR ( Amer) Est GFR (Non-Af Amer) POC Glucose (mg/dL) 175 H 189 H Random Glucose Calcium Phosphorus Magnesium Total Bilirubin AST ALT Alkaline Phosphatase Total Protein Albumin Globulin Albumin/Globulin Ratio Critical Care Progress Note - Nutrition Nutrition: Nutrition Category Date Time Status Heart Healthy Diet [DIET] Diets 01/16/18 Dinner Active Attending/Attestation - Attestation I have personally seen and examined this patient.: Yes I have fully participated in the care of the patient.: Yes I have reviewed all pertinent clinical information: Yes Notes (Text): 01/18/18 18:35 patient seen and examined in the intensive care unit. Status post transfusion of packed RBCs and fresh frozen plasma H&H stable Transfuse FFP Transfer to floor
[2018-01-18] MEDS: Vancomycin 1 gm/NS 200 ml 1 GM/200 ML BAG IVPB SCH (10:43)
[2018-01-18] MEDS ORDERED: (Novolin 70/30) NPH/Regular 70/30 Units/ml 10 ml vial SC SCH (11:30)
[2018-01-18] MEDS: (Novolin R) Insulin Human Regular 100 units/ml vial SC SCH ×3 (12:06→21:57)
[2018-01-18] MEDS: Sodium Chloride 0.9% 1,000 ML IV SCH (14:00)
--- NOTE | 2018-01-18 15:01 | VASCLAB ---
Date of service: 01/17/2018 PROCEDURE: Lower Extremity Venous Duplex Exam. HISTORY: dvt PRIORS: None. TECHNIQUE: Bilateral common femoral, femoral, popliteal and posterior tibial, peroneal and great saphenous veins were evaluated. Flow was assessed with color Doppler, compressibility, assessment of phasic flow and augmentation response. Report prepared by MINO Sanon, RVT FINDINGS: RIGHT: 1. Common Femoral Vein: 1.1. Compressibility - Fully compressible: Thrombus - None : Flow - Phasic: Augmentation -Normal: Reflux - None. 2. Femoral Vein: 2.1. Compressibility - Fully compressible: Thrombus - None : Flow - Phasic: Augmentation -Normal: Reflux - None. 3. Popliteal Vein: 3.1. Compressibility - Fully compressible: Thrombus - None : Flow - Phasic: Augmentation -Normal: Reflux - None. 4. Posterior Tibial Vein: 4.1. Compressibility - Fully compressible: Thrombus - None: Flow - Phasic: Augmentation -Normal: Reflux - None. 5. Peroneal Vein: 5.1. Compressibility - Fully compressible: Thrombus - None: Flow - Phasic: Augmentation -Normal: Reflux - None. 6. Great Saphenous Vein: 6.1. Compressibility - Fully compressible: Thrombus - None: Flow - Phasic: Augmentation - Normal: Reflux - None. LEFT: 1. Common Femoral Vein: 1.1. Compressibility - Fully compressible: Thrombus - None: Flow - Phasic: Augmentation -Normal: Reflux - None. 2. Femoral Vein: 2.1. Compressibility - Fully compressible: Thrombus - None: Flow - Phasic: Augmentation -Normal: Reflux - None. 3. Popliteal Vein: 3.1. Compressibility - Fully compressible: Thrombus - None : Flow - Phasic: Augmentation -Normal: Reflux - None. 4. Posterior Tibial Vein: 4.1. Compressibility - Fully compressible: Thrombus - None: Flow - Phasic: Augmentation -Normal: Reflux - None. 5. Peroneal Vein: 5.1. Compressibility - Fully compressible: Thrombus - None: Flow - Phasic: Augmentation -Normal: Reflux - None. 6. Great Saphenous Vein: 6.1. Compressibility - Fully compressible: Thrombus - None: Flow - Phasic: Augmentation - Normal: Reflux - None. OTHER FINDINGS: Right: None significant. Left: None significant. IMPRESSION: Right: No evidence of deep or superficial vein thrombosis of the right lower extremity. Normal valve function noted of the right side. Left: No evidence of deep or superficial vein thrombosis of the left lower extremity. Normal valve function noted of the left side.
--- NOTE | 2018-01-18 23:33 | CARD ---
APPROVED REPORT Date of service: 01/17/2018 EXAM: Two-dimensional and M-mode echocardiogram with Doppler and color Doppler. Other Information Quality : GoodRhythm : INDICATION Cardiac Disease: CAD Syncope Congestive Heart Failure Surgery/Intervention Status/Post Intervention: Stent RISK FACTORS Hypertension Hyperlipidemia 2D DIMENSIONS IVSd1.4 (0.7-1.1cm)Aortic Root (2D)3.7 (2.0-3.7cm) LVDd4.8 (3.9-5.9cm)LVOT Diameter2.1 (1.8-2.4cm) PWd1.6 (0.7-1.1cm)LA Alqysi09 (18-58mL) LVDs3.3 (2.5-4.0cm)FS (%) 30.0 % LVEF (%)57.2 (>50%)LVEF (Byers's)58.53 % M-Mode DIMENSIONS Left Atrium (MM)4.79 (2.5-4.0cm)IVSd1.48 (0.7-1.1cm) Aortic Root2.89 (2.2-3.7cm)LVDd4.82 (4.0-5.6cm) Aortic Cusp Exc.1.28 (1.5-2.0cm)PWd1.61 (0.7-1.1cm) FS (%) 32 %LVDs3.30 (2.0-3.8cm) TAPSE12.58 cmLVEF (%)59 (>50%) Aortic Valve AoV Peak Bllabhfl238.3cm/sAoV VTI40.0cmAO Peak GR.19mmHg LVOT Peak Kkcautyj484.5cm/sLVOT VTI23.11cmAO Mean GR.9mmHg HARI (VMAX)1.23rx7BQJ (VTI)2.01cm2 Mitral Valve MV E Msebsmvn975.5cm/sE/A ratio0.0 TDI Lateral E' Peak V11.32cm/sMedial E' Peak V5.90cm/sE/Lateral E'12.0 E/Medial E'23.0 Tricuspid Valve TR Peak Rjvyxxmo856wg/sTR Peak Gr.49arFxSGUG091qwHs LEFT VENTRICLE The left ventricle is normal size. There is moderate concentric left ventricular hypertrophy. Left ventricle systolic function is normal. The Ejection Fraction is 55-60%. There is normal LV segmental wall motion. The left ventricular diastolic function is normal. RIGHT VENTRICLE The right ventricle is normal size. There is normal right ventricular wall thickness. The right ventricular systolic function is normal. ATRIA The left atrium is mildly dilated. The right atrium size is normal. The discontinuity of the interatrial septum is suggestive of an atrial septal defect. The interatrial septum bows toward left atrium consistent with elevated right atrial pressure. AORTIC VALVE The aortic valve is normal in structure. There is mild aortic regurgitation. Calculated aortic valve area is 2.01 cm2 with maximum pressure gradient of 19 mmHg and mean pressure gradient of 9 mmHg. MITRAL VALVE The mitral valve is normal in structure. There is no evidence of mitral valve prolapse. There is no mitral valve stenosis. Mitral regurgitation is mild. TRICUSPID VALVE The tricuspid valve is normal in structure. There is moderate to severe tricuspid regurgitation. Right ventricular systolic pressure is estimated at greater than 60 mmHg. There is severe pulmonary hypertension. PULMONIC VALVE The pulmonic valve is not well visualized. PERICARDIAL EFFUSION There is no significant pericardial effusion. <Conclusion> Left ventricle systolic function is normal. The Ejection Fraction is 55-60%. Hypertensive heart disease. The discontinuity of the interatrial septum is suggestive of an atrial septal defect. The interatrial septum bows toward left atrium consistent with elevated right atrial pressure. There is mild aortic regurgitation. Mitral regurgitation is mild. There is moderate to severe tricuspid regurgitation. There is severe pulmonary hypertension.
[2018-01-19] MEDS: HYDROmorphone 1 mg/ml ISec IVP PRN ×3 (02:43→20:25)
[2018-01-19] MEDS: Piperacillin/Tazobact 3.375 GM in Sodium Chloride 100 ML IVPB SCH ×4 (04:30→22:12)
[2018-01-19] MEDS: Levothyroxine 25 MCG TAB PO SCH (05:35)
[2018-01-19 06:25] LABS: BASO # 0.1 K/uL (0.0-0.2); BASO % 1.1 % (0.0-2.0); EOS # 0.6 K/uL (0.0-0.7); EOS % 7.3 % (0.0-4.0); HEMOGLOBIN 8.8 g/dL (12.0-18.0); LYMPH # 0.9 K/uL (1.0-4.3); LYMPH % 9.9 % (20.0-40.0); MEAN CELL VOLUME 90.8 fL (80.0-94.0); MEAN CORPUSCULAR HEMOGLOBIN 31.6 pg (27.0-31.0); MEAN CORPUSCULAR HGB CONC 34.8 g/dL (33.0-37.0); MEAN PLATELET VOLUME 7.1 fL (7.2-11.7); MONO # 0.5 K/uL (0.0-0.8); MONO % 6.3 % (0.0-10.0); NEUT # 6.5 K/uL (1.8-7.0); NEUT % 75.4 % (50.0-75.0); PLATELET COUNT 345 K/uL (130-400); RBC 2.78 Mil/uL (4.40-5.90); RED CELL DISTRIBUTION WIDTH 16.8 % (11.5-14.5); WHITE BLOOD COUNT 8.7 K/uL (4.8-10.8)
[2018-01-19 06:30] LABS: INR 2.8; PROTHROMBIN TIME 30.9 SECONDS (9.7-12.2)
[2018-01-19 06:34] LABS: ALB/GLOB RATIO 0.9 (1.0-2.1); ALBUMIN 3.3 g/dL (3.5-5.0); CALCIUM 9.2 mg/dl (8.6-10.4)
[2018-01-19] MEDS: (Novolin R) Insulin Human Regular 100 units/ml vial SC SCH ×4 (07:30→22:31)
[2018-01-19 09:01] LABS: BASOPHIL 1 % (0-2); EOSINOPHIL 3 % (0-4); LYMPHOCYTE 15 % (20-40); MONOCYTE 7 % (0-10); NEUTROPHIL 74 % (50-75); TOTAL CELLS COUNTED 100
[2018-01-19 09:02] LABS: PLATELET ESTIMATE NORMAL (NORMAL); POIKILOCYTOSIS SLIGHT
[2018-01-19 09:03] LABS: ANISOCYTOSIS MODERATE; HYPOCHROMIC SLIGHT; POLYCHROMIC SLIGHT
[2018-01-19] MEDS: Vancomycin 1 gm/NS 200 ml 1 GM/200 ML BAG IVPB SCH (09:03)
[2018-01-19 09:04] LABS: LARGE PLATELETS PRESENT; OVALOCYTES SLIGHT; TOXIC GRANULATION PRESENT
[2018-01-19 09:05] LABS: GIANT PLATELETS PRESENT
[2018-01-19] MEDS: Sodium Chloride 0.9% 1,000 ML IV SCH ×2 (13:47→17:03)
--- NOTE | 2018-01-19 14:33 | PN ---
DATE: 01/19/2018 SUBJECTIVE: The patient is oriented. He does not appear to be in distress. He still has uncontrolled hypertension. PHYSICAL EXAMINATION: VITAL SIGNS: Blood pressure 165/112, heart rate 100, respirations 15, temperature 98. HEENT: Pale conjunctivae. CHEST: Diminished breath sounds at the bases. HEART: S1, S2 regular. EXTREMITIES: 2+ pitting edema with ecchymosis and bruise on the outer aspect of the right lower extremity. LABORATORY DATA: Today's hemoglobin and hematocrit are 8.8 and 25.2. White count and platelet count are within normal limit. Today's BUN and creatinine are 38 and 2.3, glucose 159. Today's INR is 2.8 and PTT 39. ASSESSMENT: 1. Status post fall and right lower extremity hematoma. 2. coagulopathy. 3. Chronic atrial fibrillation. 4. Uncontrolled hypertension. 5. Chronic renal insufficiency. RECOMMENDATIONS: Case was discussed with tube rebuilder, Dr. Stein. The patient was resumed on Lopressor 50 mg orally twice a day. Continue Norvasc at 5 mg once a day, IV Zosyn 3.375 g every 12 hours, IV vancomycin 1 g intravenously daily, hydralazine 10 mg p.o. four times in a day. I would like to mention that my yesterday's progress note is not available in [employer] database, and if it is completely missing, I will dictate a replacement note. Jenaro Jung MD
--- NOTE | 2018-01-19 16:59 | CP.PCM.PN ---
Subjective - Date & Time of Evaluation Date of Evaluation: 01/19/18 Time of Evaluation: 16:58 - Subjective Subjective: Patient has no specific complaints Objective - Vital Signs/Intake and Output Vital Signs (last 24 hours): Temp Pulse Resp BP Pulse Ox 97.9 F 113 H 18 150/98 H 98 01/19/18 16:00 01/19/18 16:30 01/19/18 16:30 01/19/18 16:00 01/19/18 16:30 Intake and Output: 01/19/18 01/19/18 06:59 18:59 Intake Total 960 620 Output Total 630 Balance 330 620 - Medications Medications: Current Medications Amlodipine Besylate (Norvasc) 5 mg PO DAILY [facility] Last Admin: 01/19/18 09:03 Dose: 5 mg Dextrose (Dextrose 50% Inj) 0 ml IV STAT PRN; Protocol PRN Reason: Hypoglycemia Protocol Dextrose (Glutose 15) 0 gm PO ONCE PRN; Protocol PRN Reason: Hypoglycemia Protocol Glucagon (Glucagen Diagnostic Kit) 0 mg IM STAT PRN; Protocol PRN Reason: Hypoglycemia Protocol Hydralazine HCl (Apresoline) 10 mg PO QID [facility] Last Admin: 01/19/18 13:46 Dose: 10 mg Hydromorphone HCl (Dilaudid) 1 mg IVP Q3H PRN PRN Reason: Pain, severe (8-10) Last Admin: 01/19/18 08:58 Dose: 1 mg Sodium Chloride (Sodium Chloride 0.9%) 1,000 mls @ 40 mls/hr IV .Q24H RENA Last Admin: 01/19/18 13:47 Dose: Not Given Piperacillin Sod/Tazobactam (Sod 3.375 gm/ Sodium Chloride) 100 mls @ 200 mls/hr IVPB Q6H RENA; Protocol Last Admin: 01/19/18 16:45 Dose: 200 mls/hr Vancomycin/Sodium Chloride (Vancomycin 1 Gm/Ns 200 Ml) 1 gm in 200 mls @ 133 mls/hr IVPB DAILY RENA; Protocol Stop: 01/21/18 17:01 Last Admin: 01/19/18 09:03 Dose: 133 mls/hr Dextrose (Dextrose 5% In Water 1000 Ml) 1,000 mls @ 0 mls/hr IV .Q0M PRN; Protocol PRN Reason: Hypoglycemia Protocol Insulin Human Regular (Novolin R) 0 unit SC ACHS [facility]; Protocol Last Admin: 01/19/18 16:52 Dose: 3 unit Levothyroxine Sodium (Synthroid) 25 mcg PO DAILY@0630 [facility] Last Admin: 01/19/18 05:35 Dose: 25 mcg Metoprolol Tartrate (Lopressor) 50 mg PO BIDBS [facility] Last Admin: 01/19/18 16:10 Dose: 50 mg Metoprolol Tartrate (Lopressor) 5 mg IVP Q4H PRN PRN Reason: Heart rate Pantoprazole Sodium (Protonix Inj) 40 mg IVP DAILY [facility] Last Admin: 01/19/18 09:03 Dose: 40 mg - Labs Labs: 01/19/18 06:15 01/19/18 06:12 PT 30.9 SECONDS (9.7-12.2) H 01/19/18 06:21 INR 2.8 01/19/18 06:21 APTT 39 SECONDS (21-34) H 01/19/18 06:21 - Constitutional Appears: Well, No Acute Distress - Head Exam Head Exam: ATRAUMATIC, NORMAL INSPECTION - Eye Exam Pupil Exam: NORMAL ACCOMODATION - ENT Exam ENT Exam: Mucous Membranes Moist - Respiratory Exam Respiratory Exam: Clear to Ausculation Bilateral, NORMAL BREATHING PATTERN. absent: Rales, Stridor - Cardiovascular Exam Cardiovascular Exam: Irregular Rhythm, +S1, +S2 - GI/Abdominal Exam GI & Abdominal Exam: Normal Bowel Sounds - Extremities Exam Additional comments: right leg multiple places of ecchymosis - Neurological Exam Neurological Exam: Alert, Awake Assessment and Plan - Assessment and Plan (Free Text) Assessment: 77 year old male with PMHx of atrial fibrillation on warfarin, HTN, CAD, DM-2, hypothyroidism, and HLD presenting with right leg pain after a fall. Hb/Hct was 5.6/16.4 on admission. -Acute blood loss anemia: continue to monitor cbc, tranfuse to keep hemodynamic stability -right leg hematoma: no active bleeding see, -serial cbc -DEBBY: possible ATN +/- ACI, avoid nephrotoxic drugs -HTN: continue antiyhypertensive, AV harry blodker and hydralazine -empirically on ABX, de-scalate if culture nedgative -continue dvt/pud ppx Patient remains hemodynamically stable. continue to monitor
[2018-01-20] MEDS: Piperacillin/Tazobact 3.375 GM in Sodium Chloride 100 ML IVPB SCH ×2 (04:12→09:22)
[2018-01-20] MEDS: Metoprolol 1 mg/ml Inj IVP PRN (04:56)
[2018-01-20] MEDS: HYDROmorphone 1 mg/ml ISec IVP PRN ×2 (05:01→08:03)
[2018-01-20] MEDS: Levothyroxine 25 MCG TAB PO SCH (05:39)
[2018-01-20 06:30] LABS: BASO # 0.1 K/uL (0.0-0.2); BASO % 1.4 % (0.0-2.0); EOS # 0.7 K/uL (0.0-0.7); EOS % 8.2 % (0.0-4.0); HEMOGLOBIN 8.6 g/dL (12.0-18.0); LYMPH # 0.9 K/uL (1.0-4.3); LYMPH % 9.9 % (20.0-40.0); MEAN CELL VOLUME 92.5 fL (80.0-94.0); MEAN CORPUSCULAR HEMOGLOBIN 31.4 pg (27.0-31.0); MEAN CORPUSCULAR HGB CONC 33.9 g/dL (33.0-37.0); MEAN PLATELET VOLUME 7.3 fL (7.2-11.7); MONO # 0.6 K/uL (0.0-0.8); MONO % 6.8 % (0.0-10.0); NEUT # 6.4 K/uL (1.8-7.0); NEUT % 73.7 % (50.0-75.0); PLATELET COUNT 311 K/uL (130-400); RBC 2.75 Mil/uL (4.40-5.90); RED CELL DISTRIBUTION WIDTH 17.5 % (11.5-14.5); WHITE BLOOD COUNT 8.7 K/uL (4.8-10.8)
[2018-01-20 07:17] LABS: ALB/GLOB RATIO 0.9 (1.0-2.1); ALBUMIN 3.1 g/dL (3.5-5.0); CALCIUM 8.9 mg/dl (8.6-10.4)
[2018-01-20] MEDS: (Novolin R) Insulin Human Regular 100 units/ml vial SC SCH ×4 (07:30→22:13)
[2018-01-20 08:30] LABS: ANISOCYTOSIS SLIGHT; EOSINOPHIL 3 % (0-4); LYMPHOCYTE 11 % (20-40); MONOCYTE 7 % (0-10); MYELOCYTE 1 % (0-0); NEUTROPHIL 78 % (50-75); PLATELET ESTIMATE NORMAL (NORMAL); TOTAL CELLS COUNTED 100
[2018-01-20 08:31] LABS: HYPOCHROMIC SLIGHT; POLYCHROMIC SLIGHT
--- NOTE | 2018-01-20 10:12 | PN ---
DATE: 01/18/2018 COVERING FOR: Kevin Osborne MD SUBJECTIVE: The patient denies any leg pain and denies any chest pain. PHYSICAL EXAMINATION: VITAL SIGNS: Blood pressure 160/115, heart rate 129, temperature 98.1, respirations 17. HEENT: Pale conjunctivae. CHEST: Diminished breath sounds at the bases. HEART: S1 and S2 regular. EXTREMITIES: 2+ pitting edema with resolving right inner thigh and inner leg hematoma. LABORATORY DATA: Today's hemoglobin and hematocrit 8.8 and 25.3, white count 10.6, platelet count 383,000. Today's SMA-7: Sodium 142, potassium 4.4, chloride 108, CO2 of 23, glucose 178, BUN 40, creatinine 2.6. INR 3, PTT 40. EKG revealed atrial fibrillation with left ventricular response rate of 112, septal infarct of indeterminate age. Lower extremity CT scan revealed large intramuscular hematoma within most of the mid thigh, apparently within the vastus medialis and intermedius. There were diffuse infiltration changes seen throughout subcutaneous tissue of the left leg extending distally to the level of the ankle region. Findings likely due to edema; however, the possibility of cellulitis is not excluded. A small suprapatellar joint effusion. ASSESSMENT: 1. Status post fall and right thigh hematoma. 2. Chronic atrial fibrillation. 3. Iatrogenic coagulopathy. 4. Chronic venous insufficiency. 5. Uncontrolled diabetes mellitus. 6. Anemia, which on presentation requiring packed red blood cell transfusion as well as fresh-frozen plasma. RECOMMENDATIONS: Continue current IV Zosyn 3.375 g every 6 hours with IV vancomycin 1 g daily. The patient will receive one unit of fresh-frozen plasma today. I will follow echocardiographic study performed today. Jenaro Jung MD
--- NOTE | 2018-01-20 10:15 | CP.CCUPN ---
<Jose Kerr - Last Filed: 01/20/18 14:15> CCU Subjective - Physician Review Subjective (Free Text): 01/17/18 08:16 Patient seen and examined at bedside. No acute events overnight. Patient received 2 units of PRBC and 1 unit of FFP last night. Additional 2 units of PRBC and 2 units of FFP's ordered for today. 01/18/18 10:46 Patient examined at bedside, no acute events overnight. 2 units of FFP ordered for today. 01/20/18 07:55 Patient seen and examined at bedside, no acute events overnight. Patient is resting comfortably and has no complaints at this time. Critical Care Time Spent (in minutes): 35 CCU Objective - Vital Signs / Intake & Output Vital Signs (Last 4 hours): Vital Signs Pulse Resp BP Pulse Ox 01/20/18 07:00 119 H 21 100 01/20/18 06:30 111 H 14 124/94 H 99 Intake and Output (Last 8hrs): Intake & Output 01/19/18 01/20/18 01/20/18 22:59 06:59 14:59 Intake Total 620 840 40 Output Total 345 460 Balance 275 380 40 Weight 213 lb 13.574 oz Intake: Intake, IV Amount 420 440 40 Left Antecubital 380 440 40 Right Antecubital 40 Oral 200 400 Output: Urine 345 460 Urethral (Lord) 345 460 - Physical Exam Head: Positive for: Atraumatic, Normocephalic Pupils: Positive for: PERRL Extroacular Muscles: Positive for: EOMI Conjunctiva: Positive for: Normal Mouth: Positive for: Moist Mucous Membranes Respiratory/Chest: Positive for: Clear to Auscultation, Good Air Exchange. Negative for: Respiratory Distress, Accessory Muscle Use, Wheezes, Rales, Rhonchi Cardiovascular: Positive for: Normal S1, S2, Irregular Rhythm, Tachycardic. Negative for: Murmurs, Rub, Gallop Abdomen: Positive for: Normal Bowel Sounds. Negative for: Tenderness, Distentio n, Peritoneal Signs Upper Extremity: Positive for: Normal Inspection. Negative for: Cyanosis, Edema Lower Extremity: Positive for: NORMAL PULSES, Tenderness, Swelling, Capillary Refill < 2 s, Other (Ecchymoses noted on medial right thigh and right lower leg. Tender to palpation on both legs). Negative for: Normal Inspection, Cyanosis Neurological: Positive for: GCS=15, CN II-XII Intact Skin: Positive for: Warm, Dry, Normal Color. Negative for: Rashes Psychiatric: Positive for: Alert, Oriented x 3, Normal Insight, Normal Concentration - Medications Active Medications: Active Medications Generic Name Dose Route Start Last Admin Trade Name Freq PRN Reason Stop Dose Admin Amlodipine Besylate 5 mg 01/18/18 15:00 01/19/18 09:03 Norvasc PO 5 mg DAILY RENA Administration Dextrose 0 ml 01/18/18 08:45 Dextrose 50% Inj IV STAT PRN Hypoglycemia Protocol Protocol Dextrose 0 gm 01/18/18 08:53 Glutose 15 PO ONCE PRN Hypoglycemia Protocol Protocol Gabapentin 100 mg 01/20/18 10:00 Neurontin PO TID REAN Glucagon 0 mg 01/18/18 08:45 Glucagen Diagnostic Kit IM STAT PRN Hypoglycemia Protocol Protocol Hydralazine HCl 25 mg 01/20/18 10:15 Apresoline PO QID RENA Hydromorphone HCl 1 mg 01/17/18 10:22 01/20/18 08:03 Dilaudid IVP 1 mg Q3H PRN Administration Pain, severe (8-10) Sodium Chloride 1,000 mls @ 40 mls/hr 01/16/18 14:00 01/19/18 17:03 Sodium Chloride 0.9% IV 40 mls/hr .Q24H RENA Administration Piperacillin Sod/Tazobactam 100 mls @ 200 mls/hr 01/16/18 17:00 01/20/18 04:12 Sod 3.375 gm/ Sodium Chloride IVPB 200 mls/hr Q6H RENA Administration Protocol Vancomycin/Sodium Chloride 1 gm in 200 mls @ 133 mls/hr 01/16/18 17:00 01/19/18 09:03 Vancomycin 1 Gm/Ns 200 Ml IVPB 01/21/18 17:01 133 mls/hr DAILY RENA Administration Protocol Dextrose 1,000 mls @ 0 mls/hr 01/18/18 08:53 Dextrose 5% In Water 1000 Ml IV .Q0M PRN Hypoglycemia Protocol Protocol Per Protocol Insulin Human Regular 0 unit 01/18/18 11:30 01/20/18 07:30 Novolin R SC Not Given ACHS RENA Protocol Levothyroxine Sodium 25 mcg 01/19/18 06:30 01/20/18 05:39 Synthroid PO 25 mcg DAILY@0630 RENA Administration Metoprolol Tartrate 5 mg 01/19/18 16:25 01/20/18 04:56 Lopressor IVP 5 mg Q4H PRN Administration Heart rate Metoprolol Tartrate 100 mg 01/20/18 16:30 Lopressor PO BIDBS RENA Metoprolol Tartrate 50 mg 01/20/18 10:15 Lopressor PO 01/20/18 10:16 ONCE ONE Pantoprazole Sodium 40 mg 01/17/18 10:00 01/19/18 09:03 Protonix Inj IVP 40 mg DAILY RENA Administration - Patient Studies Lab Studies: Microbiology Studies 01/16/18 22:32 Gram Stain - Final Penis Wound Culture - Preliminary Coagulase Neg Staphylococcus Lab Studies 01/20/18 01/20/18 01/20/18 Range/Units 07:59 06:23 06:20 WBC 8.7 (4.8-10.8) K/uL RBC 2.75 L (4.40-5.90) Mil/uL Hgb 8.6 L (12.0-18.0) g/dL Hct 25.5 L (35.0-51.0) % MCV 92.5 (80.0-94.0) fL MCH 31.4 H (27.0-31.0) pg MCHC 33.9 (33.0-37.0) g/dL RDW 17.5 H (11.5-14.5) % Plt Count 311 (130-400) K/uL MPV 7.3 (7.2-11.7) fL Neut % (Auto) 73.7 (50.0-75.0) % Lymph % (Auto) 9.9 L (20.0-40.0) % [place] % (Auto) 6.8 (0.0-10.0) % Eos % (Auto) 8.2 H (0.0-4.0) % Baso % (Auto) 1.4 (0.0-2.0) % Neut # (Auto) 6.4 (1.8-7.0) K/uL Lymph # (Auto) 0.9 L (1.0-4.3) K/uL [place] # (Auto) 0.6 (0.0-0.8) K/uL Eos # (Auto) 0.7 (0.0-0.7) K/uL Baso # (Auto) 0.1 (0.0-0.2) K/uL Neutrophils % (Manual) 78 H (50-75) % Lymphocytes % (Manual) 11 L (20-40) % Monocytes % (Manual) 7 (0-10) % Eosinophils % (Manual) 3 (0-4) % Myelocytes % 1 H (0-0) % Platelet Estimate Normal (NORMAL) Polychromasia Slight Hypochromasia (manual) Slight Anisocytosis (manual) Slight Sodium 144 (132-148) mmol/L Potassium 3.8 (3.6-5.2) mmol/L Chloride 108 H (98-107) mmol/L Carbon Dioxide 21 L (22-30) mmol/L Anion Gap 18 (10-20) BUN 37 H (9-20) mg/dL Creatinine 2.3 H (0.8-1.5) mg/dL Est GFR ( Amer) 34 Est GFR (Non-Af Amer) 28 POC Glucose (mg/dL) 142 H (65-110) mg/dL Random Glucose 150 H (75-110) mg/dL Calcium 8.9 (8.6-10.4) mg/dl Phosphorus 3.3 (2.5-4.5) mg/dL Magnesium 1.8 (1.6-2.3) mg/dL Total Bilirubin 2.8 H (0.2-1.3) mg/dL AST 11 L (17-59) U/L ALT 21 D (21-72) U/L Alkaline Phosphatase 84 (38-126) U/L Total Protein 6.7 (6.3-8.3) g/dL Albumin 3.1 L (3.5-5.0) g/dL Globulin 3.6 (2.2-3.9) gm/dL Albumin/Globulin Ratio 0.9 L (1.0-2.1) 01/19/18 01/19/18 01/19/18 Range/Units 21:34 16:35 11:19 WBC (4.8-10.8) K/uL RBC (4.40-5.90) Mil/uL Hgb (12.0-18.0) g/dL Hct (35.0-51.0) % MCV (80.0-94.0) fL MCH (27.0-31.0) pg MCHC (33.0-37.0) g/dL RDW (11.5-14.5) % Plt Count (130-400) K/uL MPV (7.2-11.7) fL Neut % (Auto) (50.0-75.0) % Lymph % (Auto) (20.0-40.0) % [place] % (Auto) (0.0-10.0) % Eos % (Auto) (0.0-4.0) % Baso % (Auto) (0.0-2.0) % Neut # (Auto) (1.8-7.0) K/uL Lymph # (Auto) (1.0-4.3) K/uL [place] # (Auto) (0.0-0.8) K/uL Eos # (Auto) (0.0-0.7) K/uL Baso # (Auto) (0.0-0.2) K/uL Neutrophils % (Manual) (50-75) % Lymphocytes % (Manual) (20-40) % Monocytes % (Manual) (0-10) % Eosinophils % (Manual) (0-4) % Myelocytes % (0-0) % Platelet Estimate (NORMAL) Polychromasia Hypochromasia (manual) Anisocytosis (manual) Sodium (132-148) mmol/L Potassium (3.6-5.2) mmol/L Chloride (98-107) mmol/L Carbon Dioxide (22-30) mmol/L Anion Gap (10-20) BUN (9-20) mg/dL Creatinine (0.8-1.5) mg/dL Est GFR ( Amer) Est GFR (Non-Af Amer) POC Glucose (mg/dL) 167 H 218 H 202 H (65-110) mg/dL Random Glucose (75-110) mg/dL Calcium (8.6-10.4) mg/dl Phosphorus (2.5-4.5) mg/dL Magnesium (1.6-2.3) mg/dL Total Bilirubin (0.2-1.3) mg/dL AST (17-59) U/L ALT (21-72) U/L Alkaline Phosphatase (38-126) U/L Total Protein (6.3-8.3) g/dL Albumin (3.5-5.0) g/dL Globulin (2.2-3.9) gm/dL Albumin/Globulin Ratio (1.0-2.1) 01/19/18 Range/Units 07:21 WBC (4.8-10.8) K/uL RBC (4.40-5.90) Mil/uL Hgb (12.0-18.0) g/dL Hct (35.0-51.0) % MCV (80.0-94.0) fL MCH (27.0-31.0) pg MCHC (33.0-37.0) g/dL RDW (11.5-14.5) % Plt Count (130-400) K/uL MPV (7.2-11.7) fL Neut % (Auto) (50.0-75.0) % Lymph % (Auto) (20.0-40.0) % [place] % (Auto) (0.0-10.0) % Eos % (Auto) (0.0-4.0) % Baso % (Auto) (0.0-2.0) % Neut # (Auto) (1.8-7.0) K/uL Lymph # (Auto) (1.0-4.3) K/uL [place] # (Auto) (0.0-0.8) K/uL Eos # (Auto) (0.0-0.7) K/uL Baso # (Auto) (0.0-0.2) K/uL Neutrophils % (Manual) (50-75) % Lymphocytes % (Manual) (20-40) % Monocytes % (Manual) (0-10) % Eosinophils % (Manual) (0-4) % Myelocytes % (0-0) % Platelet Estimate (NORMAL) Polychromasia Hypochromasia (manual) Anisocytosis (manual) Sodium (132-148) mmol/L Potassium (3.6-5.2) mmol/L Chloride (98-107) mmol/L Carbon Dioxide (22-30) mmol/L Anion Gap (10-20) BUN (9-20) mg/dL Creatinine (0.8-1.5) mg/dL Est GFR ( Amer) Est GFR (Non-Af Amer) POC Glucose (mg/dL) 151 H (65-110) mg/dL Random Glucose (75-110) mg/dL Calcium (8.6-10.4) mg/dl Phosphorus (2.5-4.5) mg/dL Magnesium (1.6-2.3) mg/dL Total Bilirubin (0.2-1.3) mg/dL AST (17-59) U/L ALT (21-72) U/L Alkaline Phosphatase (38-126) U/L Total Protein (6.3-8.3) g/dL Albumin (3.5-5.0) g/dL Globulin (2.2-3.9) gm/dL Albumin/Globulin Ratio (1.0-2.1) Laboratory Results - last 24 hr 01/19/18 01/19/18 01/19/18 07:21 11:19 16:35 WBC RBC Hgb Hct MCV MCH MCHC RDW Plt Count MPV Neut % (Auto) Lymph % (Auto) [place] % (Auto) Eos % (Auto) Baso % (Auto) Neut # (Auto) Lymph # (Auto) [place] # (Auto) Eos # (Auto) Baso # (Auto) Neutrophils % (Manual) Lymphocytes % (Manual) Monocytes % (Manual) Eosinophils % (Manual) Myelocytes % Platelet Estimate Polychromasia Hypochromasia (manual) Anisocytosis (manual) Sodium Potassium Chloride Carbon Dioxide Anion Gap BUN Creatinine Est GFR ( Amer) Est GFR (Non-Af Amer) POC Glucose (mg/dL) 151 H 202 H 218 H Random Glucose Calcium Phosphorus Magnesium Total Bilirubin AST ALT Alkaline Phosphatase Total Protein Albumin Globulin Albumin/Globulin Ratio 01/19/18 01/20/18 01/20/18 21:34 06:20 06:23 WBC 8.7 RBC 2.75 L Hgb 8.6 L Hct 25.5 L MCV 92.5 MCH 31.4 H MCHC 33.9 RDW 17.5 H Plt Count 311 MPV 7.3 Neut % (Auto) 73.7 Lymph % (Auto) 9.9 L [place] % (Auto) 6.8 Eos % (Auto) 8.2 H Baso % (Auto) 1.4 Neut # (Auto) 6.4 Lymph # (Auto) 0.9 L [place] # (Auto) 0.6 Eos # (Auto) 0.7 Baso # (Auto) 0.1 Neutrophils % (Manual) 78 H Lymphocytes % (Manual) 11 L Monocytes % (Manual) 7 Eosinophils % (Manual) 3 Myelocytes % 1 H Platelet Estimate Normal Polychromasia Slight Hypochromasia (manual) Slight Anisocytosis (manual) Slight Sodium 144 Potassium 3.8 Chloride 108 H Carbon Dioxide 21 L Anion Gap 18 BUN 37 H Creatinine 2.3 H Est GFR ( Amer) 34 Est GFR (Non-Af Amer) 28 POC Glucose (mg/dL) 167 H Random Glucose 150 H Calcium 8.9 Phosphorus 3.3 Magnesium 1.8 Total Bilirubin 2.8 H AST 11 L ALT 21 D Alkaline Phosphatase 84 Total Protein 6.7 Albumin 3.1 L Globulin 3.6 Albumin/Globulin Ratio 0.9 L 01/20/18 07:59 WBC RBC Hgb Hct MCV MCH MCHC RDW Plt Count MPV Neut % (Auto) Lymph % (Auto) [place] % (Auto) Eos % (Auto) Baso % (Auto) Neut # (Auto) Lymph # (Auto) [place] # (Auto) Eos # (Auto) Baso # (Auto) Neutrophils % (Manual) Lymphocytes % (Manual) Monocytes % (Manual) Eosinophils % (Manual) Myelocytes % Platelet Estimate Polychromasia Hypochromasia (manual) Anisocytosis (manual) Sodium Potassium Chloride Carbon Dioxide Anion Gap BUN Creatinine Est GFR ( Amer) Est GFR (Non-Af Amer) POC Glucose (mg/dL) 142 H Random Glucose Calcium Phosphorus Magnesium Total Bilirubin AST ALT Alkaline Phosphatase Total Protein Albumin Globulin Albumin/Globulin Ratio Fingerstick Blood Sugar Results: 167 Critical Care Progress Note - Nutrition Nutrition: Nutrition Category Date Time Status Heart Healthy Diet [DIET] Diets 01/16/18 Dinner Active Assessment/Plan - Assessment and Plan (Free Text) Assessment: Patient is a 77 year old male with PMHx of atrial fibrillation on warfarin, HTN, CAD, DM-2, hypothyroidism, and HLD presenting with right leg pain after a fall. Hb/Hct was 5.6/16.4 on admission. Plan: Neuro: - Patient is AAO x 3 Pulm: - No acute issues Cardiovascular: Atrial fibrillation - Metoprolol tartate 100mg PO BID and 5mg IVP Q4 PRN - Echo (01/16): LVEF 55-60%, hypertensive heart disease - see full report - LE venous duplex (01/16): No DVT Heme: Nomocytic anemia, Supratherapeutic INR - Hb: 8.6 - S/p 4 units of PRBC since admission - INR: 2.8 - S/p 5 unit of FFP since admission Renal: DEBBY - BUN/Cr: 37/2.3- downtrending - NS @ 40mls/hr - Avoid nephrotoxins HTN - Continue home medication Amlodipine 5mg PO QD, hold Losartan - Hydralazine 25mg PO Q6 - Metoprolol tartate 100mg PO BID and 5mg IVP Q4 PRN Endo: DM-2 - Accuchecks ACHS - ISS - Hypoglycemia protocol Hypothyroidism - Continue home medication Synthroid 25mg PO QD GI: - FOBT: negative - Heart healthy diet Skin: Right leg hematoma s/p fall - Lower extremity CT (01/16): Large intramuscular hematoma within most of the mid thigh apparently within the vastus medialis and intermedius. There are diffuse infiltration changes seen throughout the subcutaneous tissues of the left thigh extending distally to the level of the ankle region. Findings likely due to edema however the possibility of a cellulitis not excluded. Small suprapatellar joint effusion. - See full report - Dilaudid 1mg IV Q3 PRN - Gabapentin 100mg PO Q8 ID: Penile ulcers - Zosyn 2.25g IV Q6H (Started on 01/16) - Vancomycin 1g IV QD (Started on 01/16) - Penis wound culture (01/16): Coagulase negative staph Prophylaxis: - Protonix 40mg IVP QD - Contraindication for SCD's and VTE prophylaxis Case discussed with Dr. Favio Kerr, PGY-1 <Fabiola Stein - Last Filed: 01/20/18 15:09> CCU Objective - Vital Signs / Intake & Output Vital Signs (Last 4 hours): Vital Signs Temp Pulse Resp BP Pulse Ox 01/20/18 13:30 104 H 17 142/92 H 100 01/20/18 12:30 93 H 15 143/92 H 100 01/20/18 12:00 98.5 F 102 H 15 98 01/20/18 11:30 93 H 16 149/91 H 100 Intake and Output (Last 8hrs): Intake & Output 11/23/18 11/23/18 11/23/18 06:59 14:59 22:59 Intake Total 840 620 Output Total 460 Balance 380 620 Weight 213 lb 13.574 oz Intake: Intake, IV Amount 440 620 Left Antecubital 440 320 Left Upper arm 300 Oral 400 Output: Urine 460 Urethral (Lord) 460 - Medications Active Medications: Active Medications Generic Name Dose Route Start Last Admin Trade Name Freq PRN Reason Stop Dose Admin Amlodipine Besylate 5 mg 01/18/18 15:00 01/20/18 10:22 Norvasc PO 5 mg DAILY RENA Administration Dextrose 0 ml 01/18/18 08:45 Dextrose 50% Inj IV STAT PRN Hypoglycemia Protocol Protocol Dextrose 0 gm 01/18/18 08:53 Glutose 15 PO ONCE PRN Hypoglycemia Protocol Protocol Gabapentin 100 mg 01/20/18 10:00 01/20/18 13:48 Neurontin PO 100 mg TID RENA Administration Glucagon 0 mg 01/18/18 08:45 Glucagen Diagnostic Kit IM STAT PRN Hypoglycemia Protocol Protocol Hydralazine HCl 25 mg 01/20/18 10:15 01/20/18 13:48 Apresoline PO 25 mg QID RENA Administration Hydromorphone HCl 1 mg 01/17/18 10:22 01/20/18 08:03 Dilaudid IVP 1 mg Q3H PRN Administration Pain, severe (8-10) Sodium Chloride 1,000 mls @ 40 mls/hr 01/16/18 14:00 01/20/18 14:02 Sodium Chloride 0.9% IV Not Given .Q24H RENA Vancomycin/Sodium Chloride 1 gm in 200 mls @ 133 mls/hr 01/16/18 17:00 01/20/18 10:50 Vancomycin 1 Gm/Ns 200 Ml IVPB 01/21/18 17:01 133 mls/hr DAILY RENA Administration Protocol Dextrose 1,000 mls @ 0 mls/hr 01/18/18 08:53 Dextrose 5% In Water 1000 Ml IV .Q0M PRN Hypoglycemia Protocol Protocol Per Protocol Piperacillin Sod/Tazobactam 100 mls @ 200 mls/hr 01/20/18 14:00 01/20/18 13:55 Sod 2.25 gm/ Sodium Chloride IVPB 200 mls/hr Q6H RENA Administration Protocol Insulin Human Regular 0 unit 01/18/18 11:30 01/20/18 12:30 Novolin R SC Not Given ACHS [facility] Protocol Levothyroxine Sodium 25 mcg 01/19/18 06:30 01/20/18 05:39 Synthroid PO 25 mcg DAILY@0630 RENA Administration Metoprolol Tartrate 5 mg 01/19/18 16:25 01/20/18 04:56 Lopressor IVP 5 mg Q4H PRN Administration Heart rate Metoprolol Tartrate 100 mg 01/20/18 16:30 Lopressor PO BIDBS RENA Pantoprazole Sodium 40 mg 01/21/18 10:00 Protonix Ec Tab PO DAILY RENA - Patient Studies Lab Studies: Microbiology Studies 01/16/18 22:32 Gram Stain - Final Penis Wound Culture - Final Coagulase Neg Staphylococcus Lab Studies 01/20/18 01/20/18 01/20/18 Range/Units 12:26 07:59 06:23 WBC 8.7 (4.8-10.8) K/uL RBC 2.75 L (4.40-5.90) Mil/uL Hgb 8.6 L (12.0-18.0) g/dL Hct 25.5 L (35.0-51.0) % MCV 92.5 (80.0-94.0) fL MCH 31.4 H (27.0-31.0) pg MCHC 33.9 (33.0-37.0) g/dL RDW 17.5 H (11.5-14.5) % Plt Count 311 (130-400) K/uL MPV 7.3 (7.2-11.7) fL Neut % (Auto) 73.7 (50.0-75.0) % Lymph % (Auto) 9.9 L (20.0-40.0) % [place] % (Auto) 6.8 (0.0-10.0) % Eos % (Auto) 8.2 H (0.0-4.0) % Baso % (Auto) 1.4 (0.0-2.0) % Neut # (Auto) 6.4 (1.8-7.0) K/uL Lymph # (Auto) 0.9 L (1.0-4.3) K/uL [place] # (Auto) 0.6 (0.0-0.8) K/uL Eos # (Auto) 0.7 (0.0-0.7) K/uL Baso # (Auto) 0.1 (0.0-0.2) K/uL Neutrophils % (Manual) 78 H (50-75) % Lymphocytes % (Manual) 11 L (20-40) % Monocytes % (Manual) 7 (0-10) % Eosinophils % (Manual) 3 (0-4) % Myelocytes % 1 H (0-0) % Platelet Estimate Normal (NORMAL) Polychromasia Slight Hypochromasia (manual) Slight Anisocytosis (manual) Slight Sodium (132-148) mmol/L Potassium (3.6-5.2) mmol/L Chloride (98-107) mmol/L Carbon Dioxide (22-30) mmol/L Anion Gap (10-20) BUN (9-20) mg/dL Creatinine (0.8-1.5) mg/dL Est GFR ( Amer) Est GFR (Non-Af Amer) POC Glucose (mg/dL) 172 H 142 H (65-110) mg/dL Random Glucose (75-110) mg/dL Calcium (8.6-10.4) mg/dl Phosphorus (2.5-4.5) mg/dL Magnesium (1.6-2.3) mg/dL Total Bilirubin (0.2-1.3) mg/dL AST (17-59) U/L ALT (21-72) U/L Alkaline Phosphatase (38-126) U/L Total Protein (6.3-8.3) g/dL Albumin (3.5-5.0) g/dL Globulin (2.2-3.9) gm/dL Albumin/Globulin Ratio (1.0-2.1) 01/20/18 01/19/18 01/19/18 Range/Units 06:20 21:34 16:35 WBC (4.8-10.8) K/uL RBC (4.40-5.90) Mil/uL Hgb (12.0-18.0) g/dL Hct (35.0-51.0) % MCV (80.0-94.0) fL MCH (27.0-31.0) pg MCHC (33.0-37.0) g/dL RDW (11.5-14.5) % Plt Count (130-400) K/uL MPV (7.2-11.7) fL Neut % (Auto) (50.0-75.0) % Lymph % (Auto) (20.0-40.0) % [place] % (Auto) (0.0-10.0) % Eos % (Auto) (0.0-4.0) % Baso % (Auto) (0.0-2.0) % Neut # (Auto) (1.8-7.0) K/uL Lymph # (Auto) (1.0-4.3) K/uL [place] # (Auto) (0.0-0.8) K/uL Eos # (Auto) (0.0-0.7) K/uL Baso # (Auto) (0.0-0.2) K/uL Neutrophils % (Manual) (50-75) % Lymphocytes % (Manual) (20-40) % Monocytes % (Manual) (0-10) % Eosinophils % (Manual) (0-4) % Myelocytes % (0-0) % Platelet Estimate (NORMAL) Polychromasia Hypochromasia (manual) Anisocytosis (manual) Sodium 144 (132-148) mmol/L Potassium 3.8 (3.6-5.2) mmol/L Chloride 108 H (98-107) mmol/L Carbon Dioxide 21 L (22-30) mmol/L Anion Gap 18 (10-20) BUN 37 H (9-20) mg/dL Creatinine 2.3 H (0.8-1.5) mg/dL Est GFR ( Amer) 34 Est GFR (Non-Af Amer) 28 POC Glucose (mg/dL) 167 H 218 H (65-110) mg/dL Random Glucose 150 H (75-110) mg/dL Calcium 8.9 (8.6-10.4) mg/dl Phosphorus 3.3 (2.5-4.5) mg/dL Magnesium 1.8 (1.6-2.3) mg/dL Total Bilirubin 2.8 H (0.2-1.3) mg/dL AST 11 L (17-59) U/L ALT 21 D (21-72) U/L Alkaline Phosphatase 84 (38-126) U/L Total Protein 6.7 (6.3-8.3) g/dL Albumin 3.1 L (3.5-5.0) g/dL Globulin 3.6 (2.2-3.9) gm/dL Albumin/Globulin Ratio 0.9 L (1.0-2.1) 01/19/18 01/19/18 Range/Units 11:19 07:21 WBC (4.8-10.8) K/uL RBC (4.40-5.90) Mil/uL Hgb (12.0-18.0) g/dL Hct (35.0-51.0) % MCV (80.0-94.0) fL MCH (27.0-31.0) pg MCHC (33.0-37.0) g/dL RDW (11.5-14.5) % Plt Count (130-400) K/uL MPV (7.2-11.7) fL Neut % (Auto) (50.0-75.0) % Lymph % (Auto) (20.0-40.0) % [place] % (Auto) (0.0-10.0) % Eos % (Auto) (0.0-4.0) % Baso % (Auto) (0.0-2.0) % Neut # (Auto) (1.8-7.0) K/uL Lymph # (Auto) (1.0-4.3) K/uL [place] # (Auto) (0.0-0.8) K/uL Eos # (Auto) (0.0-0.7) K/uL Baso # (Auto) (0.0-0.2) K/uL Neutrophils % (Manual) (50-75) % Lymphocytes % (Manual) (20-40) % Monocytes % (Manual) (0-10) % Eosinophils % (Manual) (0-4) % Myelocytes % (0-0) % Platelet Estimate (NORMAL) Polychromasia Hypochromasia (manual) Anisocytosis (manual) Sodium (132-148) mmol/L Potassium (3.6-5.2) mmol/L Chloride (98-107) mmol/L Carbon Dioxide (22-30) mmol/L Anion Gap (10-20) BUN (9-20) mg/dL Creatinine (0.8-1.5) mg/dL Est GFR ( Amer) Est GFR (Non-Af Amer) POC Glucose (mg/dL) 202 H 151 H (65-110) mg/dL Random Glucose (75-110) mg/dL Calcium (8.6-10.4) mg/dl Phosphorus (2.5-4.5) mg/dL Magnesium (1.6-2.3) mg/dL Total Bilirubin (0.2-1.3) mg/dL AST (17-59) U/L ALT (21-72) U/L Alkaline Phosphatase (38-126) U/L Total Protein (6.3-8.3) g/dL Albumin (3.5-5.0) g/dL Globulin (2.2-3.9) gm/dL Albumin/Globulin Ratio (1.0-2.1) Laboratory Results - last 24 hr 01/19/18 01/19/18 01/19/18 07:21 11:19 16:35 WBC RBC Hgb Hct MCV MCH MCHC RDW Plt Count MPV Neut % (Auto) Lymph % (Auto) [place] % (Auto) Eos % (Auto) Baso % (Auto) Neut # (Auto) Lymph # (Auto) [place] # (Auto) Eos # (Auto) Baso # (Auto) Neutrophils % (Manual) Lymphocytes % (Manual) Monocytes % (Manual) Eosinophils % (Manual) Myelocytes % Platelet Estimate Polychromasia Hypochromasia (manual) Anisocytosis (manual) Sodium Potassium Chloride Carbon Dioxide Anion Gap BUN Creatinine Est GFR ( Amer) Est GFR (Non-Af Amer) POC Glucose (mg/dL) 151 H 202 H 218 H Random Glucose Calcium Phosphorus Magnesium Total Bilirubin AST ALT Alkaline Phosphatase Total Protein Albumin Globulin Albumin/Globulin Ratio 01/19/18 01/20/18 01/20/18 21:34 06:20 06:23 WBC 8.7 RBC 2.75 L Hgb 8.6 L Hct 25.5 L MCV 92.5 MCH 31.4 H MCHC 33.9 RDW 17.5 H Plt Count 311 MPV 7.3 Neut % (Auto) 73.7 Lymph % (Auto) 9.9 L [place] % (Auto) 6.8 Eos % (Auto) 8.2 H Baso % (Auto) 1.4 Neut # (Auto) 6.4 Lymph # (Auto) 0.9 L [place] # (Auto) 0.6 Eos # (Auto) 0.7 Baso # (Auto) 0.1 Neutrophils % (Manual) 78 H Lymphocytes % (Manual) 11 L Monocytes % (Manual) 7 Eosinophils % (Manual) 3 Myelocytes % 1 H Platelet Estimate Normal Polychromasia Slight Hypochromasia (manual) Slight Anisocytosis (manual) Slight Sodium 144 Potassium 3.8 Chloride 108 H Carbon Dioxide 21 L Anion Gap 18 BUN 37 H Creatinine 2.3 H Est GFR ( Amer) 34 Est GFR (Non-Af Amer) 28 POC Glucose (mg/dL) 167 H Random Glucose 150 H Calcium 8.9 Phosphorus 3.3 Magnesium 1.8 Total Bilirubin 2.8 H AST 11 L ALT 21 D Alkaline Phosphatase 84 Total Protein 6.7 Albumin 3.1 L Globulin 3.6 Albumin/Globulin Ratio 0.9 L 01/20/18 01/20/18 07:59 12:26 WBC RBC Hgb Hct MCV MCH MCHC RDW Plt Count MPV Neut % (Auto) Lymph % (Auto) [place] % (Auto) Eos % (Auto) Baso % (Auto) Neut # (Auto) Lymph # (Auto) [place] # (Auto) Eos # (Auto) Baso # (Auto) Neutrophils % (Manual) Lymphocytes % (Manual) Monocytes % (Manual) Eosinophils % (Manual) Myelocytes % Platelet Estimate Polychromasia Hypochromasia (manual) Anisocytosis (manual) Sodium Potassium Chloride Carbon Dioxide Anion Gap BUN Creatinine Est GFR ( Amer) Est GFR (Non-Af Amer) POC Glucose (mg/dL) 142 H 172 H Random Glucose Calcium Phosphorus Magnesium Total Bilirubin AST ALT Alkaline Phosphatase Total Protein Albumin Globulin Albumin/Globulin Ratio Critical Care Progress Note - Nutrition Nutrition: Nutrition Category Date Time Status Heart Healthy Diet [DIET] Diets 01/16/18 Dinner Active Assessment/Plan - Assessment and Plan (Free Text) Plan: Patient seen and examind at bedside. Patient remains hemodynamically stable -BP uncontrolled -continue PT/OT -no active bleeding -distal pulses intact, able to move all toes -continue to monitor - Date & Time Date: 01/20/18 Time: 15:09
[2018-01-20] MEDS: Vancomycin 1 gm/NS 200 ml 1 GM/200 ML BAG IVPB SCH (10:50)
[2018-01-20] MEDS: Piperacillin/Tazobact 2.25 GM in Sodium Chloride 100 ML IVPB SCH ×2 (13:55→20:00)
[2018-01-20] MEDS: Sodium Chloride 0.9% 1,000 ML IV SCH (14:02)
--- NOTE | 2018-01-20 17:42 | PN ---
DATE: 01/20/2018 SUBJECTIVE: The patient is comfortable. No chest pain. Shortness of breath has improved. He is having slightly rapid atrial fibrillation. PHYSICAL EXAMINATION: VITAL SIGNS: Blood pressure 149/91, heart rate 110, temperature 98 degrees Fahrenheit, respirations 26. HEENT: Pale conjunctivae. CHEST: Diminished breath sounds over the bases. HEART: S1 and S2 regular. EXTREMITIES: 2+ pitting edema with ecchymosis involving the inner aspect of the right leg. LABORATORY DATA: Today's hemoglobin and hematocrit 8.6 and 25.5. White count and platelet count are within normal limit. Today's SMA-7; sodium 144, potassium 3.8, chloride 108, CO2 of 21, glucose 150, BUN 37, creatinine 2.3. ASSESSMENT: 1. Status post fall and right lower extremity hematoma. 2. Status post iatrogenic coagulopathy. The most recent INR was yesterday at 2.8. 3. Chronic atrial fibrillation. 4. Chronic insufficiency. 5. Uncontrolled hypertension. RECOMMENDATIONS: Continue hydralazine 25 mg four times a day, which was adjusted today. Continue Lopressor 100 mg twice a day, which was increased today and continue Norvasc 5 mg once a day, Protonix 40 mg intravenously once a day, Synthroid 25 mcg once a day, vancomycin 1 g intravenously daily. Jenaro Jung MD
[2018-01-21] MEDS: Piperacillin/Tazobact 2.25 GM in Sodium Chloride 100 ML IVPB SCH ×4 (02:00→20:00)
[2018-01-21] MEDS: Metoprolol 1 mg/ml Inj IVP PRN ×2 (02:47→06:40)
[2018-01-21] MEDS: Levothyroxine 25 MCG TAB PO SCH (06:35)
[2018-01-21 06:37] LABS: ALB/GLOB RATIO 0.9 (1.0-2.1); ALBUMIN 3.2 g/dL (3.5-5.0); CALCIUM 8.8 mg/dl (8.6-10.4)
[2018-01-21 06:38] LABS: BASO # 0.1 K/uL (0.0-0.2); BASO % 1.5 % (0.0-2.0); EOS # 0.9 K/uL (0.0-0.7); EOS % 9.4 % (0.0-4.0); HEMOGLOBIN 9.1 g/dL (12.0-18.0); LYMPH # 1.1 K/uL (1.0-4.3); LYMPH % 12.2 % (20.0-40.0); MEAN CELL VOLUME 92.2 fL (80.0-94.0); MEAN CORPUSCULAR HEMOGLOBIN 31.4 pg (27.0-31.0); MEAN CORPUSCULAR HGB CONC 34.1 g/dL (33.0-37.0); MEAN PLATELET VOLUME 7.9 fL (7.2-11.7); MONO # 0.6 K/uL (0.0-0.8); MONO % 6.4 % (0.0-10.0); NEUT # 6.5 K/uL (1.8-7.0); NEUT % 70.5 % (50.0-75.0); RBC 2.88 Mil/uL (4.40-5.90); RED CELL DISTRIBUTION WIDTH 18.4 % (11.5-14.5); WHITE BLOOD COUNT 9.2 K/uL (4.8-10.8)
[2018-01-21 06:43] LABS: INR 1.9; PROTHROMBIN TIME 21.3 SECONDS (9.7-12.2)
[2018-01-21] MEDS: Pantoprazole 40 mg EC Tab PO SCH (09:14)
[2018-01-21] MEDS: (Novolin R) Insulin Human Regular 100 units/ml vial SC SCH ×4 (09:15→21:55)
[2018-01-21] MEDS: Vancomycin 1 gm/NS 200 ml 1 GM/200 ML BAG IVPB SCH (09:16)
--- NOTE | 2018-01-21 10:05 | CP.PCM.PN ---
Subjective - Date & Time of Evaluation Date of Evaluation: 01/21/18 Time of Evaluation: 10:02 - Subjective Subjective: PAtient c/o pain right lower leg, able to move all extremitites Objective - Vital Signs/Intake and Output Vital Signs (last 24 hours): Temp Pulse Resp BP Pulse Ox 97.7 F 97 H 15 135/88 98 01/21/18 08:00 01/21/18 09:00 01/21/18 09:00 01/21/18 08:30 01/21/18 09:00 Intake and Output: 01/21/18 01/21/18 06:59 18:59 Intake Total 880 220 Output Total 660 121 Balance 220 99 - Medications Medications: Current Medications Amlodipine Besylate (Norvasc) 5 mg PO DAILY [facility] Last Admin: 01/21/18 09:14 Dose: 5 mg Dextrose (Dextrose 50% Inj) 0 ml IV STAT PRN; Protocol PRN Reason: Hypoglycemia Protocol Dextrose (Glutose 15) 0 gm PO ONCE PRN; Protocol PRN Reason: Hypoglycemia Protocol Gabapentin (Neurontin) 100 mg PO TID [facility] Last Admin: 01/21/18 09:14 Dose: 100 mg Glucagon (Glucagen Diagnostic Kit) 0 mg IM STAT PRN; Protocol PRN Reason: Hypoglycemia Protocol Hydralazine HCl (Apresoline) 25 mg PO QID [facility] Last Admin: 01/21/18 09:14 Dose: 25 mg Sodium Chloride (Sodium Chloride 0.9%) 1,000 mls @ 40 mls/hr IV .Q24H [facility] Last Admin: 01/20/18 14:02 Dose: Not Given Vancomycin/Sodium Chloride (Vancomycin 1 Gm/Ns 200 Ml) 1 gm in 200 mls @ 133 mls/hr IVPB DAILY [facility]; Protocol Stop: 01/21/18 17:01 Last Admin: 01/21/18 09:16 Dose: 133 mls/hr Dextrose (Dextrose 5% In Water 1000 Ml) 1,000 mls @ 0 mls/hr IV .Q0M PRN; Protocol PRN Reason: Hypoglycemia Protocol Piperacillin Sod/Tazobactam (Sod 2.25 gm/ Sodium Chloride) 100 mls @ 200 mls/hr IVPB Q6H [facility]; Protocol Last Admin: 01/21/18 09:15 Dose: 200 mls/hr Insulin Human Regular (Novolin R) 0 unit SC ACHS [facility]; Protocol Last Admin: 01/21/18 09:15 Dose: 2 unit Levothyroxine Sodium (Synthroid) 25 mcg PO DAILY@0630 [facility] Last Admin: 01/21/18 06:35 Dose: 25 mcg Metoprolol Tartrate (Lopressor) 5 mg IVP Q4H PRN PRN Reason: Heart rate Last Admin: 01/21/18 06:40 Dose: 5 mg Metoprolol Tartrate (Lopressor) 100 mg PO BIDBS [facility] Last Admin: 01/21/18 09:15 Dose: 100 mg Pantoprazole Sodium (Protonix Ec Tab) 40 mg PO DAILY [facility] Last Admin: 01/21/18 09:14 Dose: 40 mg - Labs Labs: 01/21/18 06:23 01/21/18 06:07 PT 21.3 SECONDS (9.7-12.2) H D 01/21/18 06:30 INR 1.9 D 01/21/18 06:30 APTT 37 SECONDS (21-34) H 01/21/18 06:30 - Head Exam Head Exam: ATRAUMATIC, NORMAL INSPECTION, NORMOCEPHALIC - Eye Exam Eye Exam: Normal appearance - Respiratory Exam Respiratory Exam: Clear to Ausculation Bilateral, NORMAL BREATHING PATTERN - Cardiovascular Exam Cardiovascular Exam: Tachycardia, Irregular Rhythm, +S1, +S2 - GI/Abdominal Exam GI & Abdominal Exam: Soft, Normal Bowel Sounds - Extremities Exam Additional comments: ecchymosis right lower leg, pulses intact - Neurological Exam Neurological Exam: Alert, Awake Assessment and Plan - Assessment and Plan (Free Text) Assessment: 77 year old male with PMHx of atrial fibrillation on warfarin, HTN, CAD, DM-2, hypothyroidism, and HLD presenting with right leg pain after a fall Hb/Hct was 5.6/16.4 on admission. -Acute blood loss anemia: resolved: hb remains stable, no active bleeding -right leg hematoma: no active bleeding seen -DEBBY: possible ATN +/- ACI, avoid nephrotoxic drugs, stable CKD -HTN:controlled: continue antiyhypertensive, AV harry blodker and hydralazine -d/c ABX GPC caog neg suspect was contaminant -continue dvt (scds)/pud ppx(PPI) Patient remains hemodynamically stable. continue to monitor
[2018-01-21] MEDS: Sodium Chloride 0.9% 1,000 ML IV SCH (17:05)
[2018-01-22] MEDS: Piperacillin/Tazobact 2.25 GM in Sodium Chloride 100 ML IVPB SCH ×4 (01:57→19:00)
[2018-01-22] MEDS: Levothyroxine 25 MCG TAB PO SCH (05:41)
[2018-01-22] MEDS: Metoprolol 1 mg/ml Inj IVP PRN ×2 (06:17→12:39)
[2018-01-22] MEDS: (Novolin R) Insulin Human Regular 100 units/ml vial SC SCH ×4 (07:52→21:43)
[2018-01-22 08:03] LABS: BASO # 0.1 K/uL (0.0-0.2); BASO % 1.4 % (0.0-2.0); EOS # 0.8 K/uL (0.0-0.7); EOS % 10.1 % (0.0-4.0); HEMOGLOBIN 8.8 g/dL (12.0-18.0); LYMPH # 1.1 K/uL (1.0-4.3); LYMPH % 13.2 % (20.0-40.0); MEAN CELL VOLUME 92.2 fL (80.0-94.0); MEAN CORPUSCULAR HEMOGLOBIN 30.8 pg (27.0-31.0); MEAN CORPUSCULAR HGB CONC 33.4 g/dL (33.0-37.0); MEAN PLATELET VOLUME 7.5 fL (7.2-11.7); MONO # 0.6 K/uL (0.0-0.8); NEUT # 5.6 K/uL (1.8-7.0); NEUT % 68.3 % (50.0-75.0); RBC 2.86 Mil/uL (4.40-5.90); RED CELL DISTRIBUTION WIDTH 19.1 % (11.5-14.5); WHITE BLOOD COUNT 8.3 K/uL (4.8-10.8)
[2018-01-22 08:14] LABS: ALB/GLOB RATIO 0.9 (1.0-2.1); CALCIUM 7.5 mg/dl (8.6-10.4)
[2018-01-22] MEDS: Pantoprazole 40 mg EC Tab PO SCH (10:22)
--- NOTE | 2018-01-22 14:36 | PN ---
DATE: 01/22/2018 SUBJECTIVE: The patient was reported to have nonsustained ventricular tachycardia; however, upon review of the strips, they were atrial fibrillation with aberrancy. The patient denies any chest pain. He is still having rectal tube. PHYSICAL EXAMINATION: VITAL SIGNS: Blood pressure 159/73, heart rate 88, temperature 98, respirations 18. HEENT: Pale conjunctivae. CHEST: Clear. HEART: S1 and S2 regular. EXTREMITIES: Ecchymosis involving the inner aspect of the right leg. LABORATORY DATA: Hemoglobin and hematocrit 8.8 and 26.4. White count and platelet count are within normal limit. Yesterday's INR is 1.9. Today's SMA-7: Sodium 142, potassium 4, chloride 110, CO2 of 21, glucose 146, BUN 36, creatinine 2.5. ASSESSMENT: 1. Chronic atrial fibrillation. 2. Status post a fall and right lower extremity hematoma. 3. Chronic renal insufficiency. 4. Uncontrolled diabetes mellitus. 5. Diarrhea. The stool Clostridium difficile antigen and toxin are negative. PLAN: Continue hydralazine 25 mg four times a day, Lopressor 100 mg twice a day, Norvasc 5 mg once a day, Zosyn 2.25 g intravenously every 6 hours, Synthroid 25 mcg daily. Jenaro Jung MD
[2018-01-22] MEDS ORDERED: Atropine-Diphenoxylate 0.025-2.5 mg Tab PO STA (22:27)
[2018-01-23] MEDS: Piperacillin/Tazobact 2.25 GM in Sodium Chloride 100 ML IVPB SCH ×4 (03:00→19:42)
[2018-01-23] MEDS: Levothyroxine 25 MCG TAB PO SCH (06:22)
[2018-01-23 06:40] LABS: BASO # 0.1 K/uL (0.0-0.2); BASO % 0.8 % (0.0-2.0); EOS # 0.5 K/uL (0.0-0.7); EOS % 4.7 % (0.0-4.0); HEMOGLOBIN 9.3 g/dL (12.0-18.0); LYMPH # 1.2 K/uL (1.0-4.3); LYMPH % 12.1 % (20.0-40.0); MEAN CELL VOLUME 92.8 fL (80.0-94.0); MEAN CORPUSCULAR HEMOGLOBIN 30.4 pg (27.0-31.0); MEAN CORPUSCULAR HGB CONC 32.8 g/dL (33.0-37.0); MEAN PLATELET VOLUME 7.9 fL (7.2-11.7); MONO # 0.8 K/uL (0.0-0.8); MONO % 8.5 % (0.0-10.0); NEUT # 7.2 K/uL (1.8-7.0); NEUT % 73.9 % (50.0-75.0); RBC 3.04 Mil/uL (4.40-5.90); RED CELL DISTRIBUTION WIDTH 19.3 % (11.5-14.5); WHITE BLOOD COUNT 9.7 K/uL (4.8-10.8)
[2018-01-23 06:54] LABS: ALB/GLOB RATIO 0.9 (1.0-2.1); ALBUMIN 3.1 g/dL (3.5-5.0); CALCIUM 8.5 mg/dl (8.6-10.4)
[2018-01-23] MEDS: (Novolin R) Insulin Human Regular 100 units/ml vial SC SCH ×3 (07:53→17:27)
[2018-01-23] MEDS: Pantoprazole 40 mg EC Tab PO SCH (09:38)
--- NOTE | 2018-01-23 09:41 | PN ---
DATE: 01/21/2018 SUBJECTIVE: The patient is ____. ____ chest pain, ____ atrial fibrillation. PHYSICAL EXAMINATION: VITAL SIGNS: Blood pressure 149/69, heart rate 115, temperature 98.2, respirations 20. HEENT: Pale conjunctivae. CHEST: Clear. HEART: S1, S2 regular. ABDOMEN: Soft. EXTREMITIES: Extensive hematoma of the right leg inner aspect as well as ____ aspect. LABORATORY DATA: Today's BUN and creatinine are 38 and 2.3. Today's sugar is 151. Today's hemoglobin and hematocrit are 11 and 26.6. White count and platelet count are within normal limits. ASSESSMENT: 1. Chronic atrial fibrillation. 2. Status post fall and extensive hematoma involving the right lower extremity. 3. Chronic renal insufficiency. 4. New onset diarrhea. PLAN: Continue hydralazine 25 mg 4 times a day, Lopressor 25 mg intravenously every 4 hours p.r.n., Lopressor 100 mg p.o. twice a day, continue Neurontin 100 mg t.i.d., Norvasc 5 mg once a day, Zosyn 2.25 g intravenously every 6 hours, Protonix 40 mg orally once a day, Synthroid 25 mcg once a day, vancomycin at 1 g intravenously daily. The stool was sent for Clostridium difficile. Jenaro Jung MD
[2018-01-23] MEDS: Metoprolol 1 mg/ml Inj IVP PRN (13:29)
--- NOTE | 2018-01-23 14:27 | CT ---
Date of service: 01/23/2018 PROCEDURE: CT of the right lower extremity/thigh without contrast HISTORY: reeval for hematoma COMPARISON: Comparison is made to the previous study dated 01/16/2018 TECHNIQUE: Axial and reformatted coronal and sagittal CT images of the right thigh without contrast were obtained from level of right sacroiliac joint to the right knee without IV contrast administration. Total exam DLP: 1440.17 FINDINGS: Again noted is high attenuation fluid collection at the anterior aspect of the mid and distal thigh. Findings again likely represent hematoma. The hematoma appears small heterogeneous in the current study compared to the previous exam measures 22.8 centimeter in the longitudinal diameter 9 centimeter in the largest transverse diameter and 6.5 centimeter in the largest AP diameter. No evidence of acute displaced fracture in the right femur. There are small foci of lucency noted in the femoral condyle and proximal portion of the right tibia of uncertain etiology. There is irregularity noted at the articular surface of the right tibial plateau. No evidence of acute dislocation at the right hip and right knee. Diffuse vascular calcification in femoral and popliteal arteries are again noted. There is a small right knee joint effusion. IMPRESSION: Interval mild increase in the size of the mid and distal anterior right thigh hematoma which appears heterogeneous in the current study. Otherwise no interval changes.
[2018-01-23] MEDS: Sodium Chloride 0.9% 1,000 ML IV SCH (17:29)
--- NOTE | 2018-01-23 17:44 | CARD ---
APPROVED REPORT Date of service: 01/16/2018 EKG Measurement Heart [id number] <Conclusion> Atrial fibrillation with rapid ventricular response Left axis deviation Septal infarct, age undetermined Abnormal ECG
--- NOTE | 2018-01-23 23:21 | CON ---
DATE: 01/23/2018 REASON FOR CONSULTATION: The patient is a 77-year-old male, whom I have been seeing for medical coverage for Dr. Kevin Osborne since 01/18/2018 and Cardiology consult was requested today to evaluate the patient for resumption of Coumadin therapy. HISTORY OF PRESENT ILLNESS: The patient is a 77-year-old male, who has a history of chronic atrial fibrillation, on Coumadin therapy, being followed by Dr. Arrington and Dr. Warren as an outpatient. The patient presented initially because of fall and hematoma involving the inner aspects of the right lower extremity and remained in the ICU until he was transferred to telemetry 2 days ago. Initial lower extremity CT scan done on 01/16/2018 revealed large intramuscular hematoma within most of the mid thigh, apparently within the vastus medialis and intermedius. There are diffuse infiltration changes seen throughout the subcutaneous tissue of the left thigh extending distally to the level of the ankle region. Findings likely due to edema; however, possibility of cellulitis not excluded. A small suprapatellar joint effusion. No definite patellar joint displaced fracture or dislocation. The initial INR was 4.1 and Coumadin was discontinued and the patient was observed in the ICU. Initial hemoglobin was 5.6 on presentation and the patient required a total of 2 units packed RBC transfusion as well as 2 units of fresh frozen plasma. The patient is still experiencing right lower extremity swelling and tenderness on palpation. The patient denies any retrosternal chest pain. SOCIAL HISTORY: Nonsmoker. He is . MEDICATIONS: Hydralazine 25 mg 4 times a day, Lopressor 5 mg intravenously every 4 hours p.r.n., Lopressor 100 mg p.o. b.i.d., Neurontin 100 mg t.i.d., Norvasc 5 mg once a day, Zosyn 2.25 g intravenously every 6 hours, Synthroid 25 mcg once a day, Protonix 40 mg p.o. once a day. PAST MEDICAL HISTORY: Chronic atrial fibrillation, hypertension, and diabetes mellitus. PHYSICAL EXAMINATION: GENERAL: The patient is an elderly male, who does not appear to be in acute distress. VITAL SIGNS: Blood pressure 160/88, heart rate 99, temperature 97.9, and respirations 20. HEENT: Pale conjunctivae. CHEST: Clear. HEART: S1 and S2 regular. ABDOMEN: Soft. EXTREMITIES: Edematous and indurated right thigh with local tenderness and resolving right inner thigh ecchymosis with faint distal pulses; however, no evidence of acute ischemic changes. LABORATORY DATA: The most recent hemoglobin and hematocrit on 01/20/2018 were 8.6 and 25.5. White count and platelet count are within normal limits. Today's SMA-7: Sodium 143, potassium 4, chloride 112, CO2 20, glucose is 156, BUN 32, and creatinine 2.2. Echocardiographic study revealed normal ejection fraction, possible atrial septal defect, severe pulmonary hypertension, and mild aortic insufficiency. EKG on admission revealed atrial fibrillation at the rate of 112, PVCs versus aberrancy, old septal infarct. ASSESSMENT: 1. Status post fall with extensive intramuscular right lower extremity hematoma and anemia, requiring 2 units of packed red blood cells transfusion. 2. Chronic atrial fibrillation. 3. Severe pulmonary hypertension. RECOMMENDATIONS: The case was discussed with [employer]. Continue hydralazine 25 mg 4 times a day, Lopressor 5 mg intravenously every 4 hours p.r.n. and Lopressor 100 mg p.o. twice a day, Neurontin 100 mg t.i.d., Norvasc 5 mg once a day. Continue IV Zosyn, continue Synthroid 25 mcg daily. Obtain repeat CT scan of the right lower extremity. Hold on any further anticoagulation and surgical consultation is recommended to rule out the possibility of any impending compartment syndrome, which is not evident clinically at this point. Jenaro Jung MD
--- NOTE | 2018-01-24 02:07 | CP.PCM.PN ---
Subjective - Date & Time of Evaluation Date of Evaluation: 01/23/18 - Subjective Subjective: dictated Objective - Vital Signs/Intake and Output Vital Signs (last 24 hours): Temp Pulse Resp BP Pulse Ox 98.2 F 104 H 20 157/88 H 95 01/23/18 23:05 01/23/18 23:05 01/23/18 23:05 01/23/18 23:05 01/23/18 23:05 Intake and Output: 01/23/18 01/24/18 18:59 06:59 Intake Total 770 630 Output Total 500 600 Balance 270 30 - Medications Medications: Current Medications Amlodipine Besylate (Norvasc) 5 mg PO DAILY [facility] Last Admin: 01/23/18 09:38 Dose: 5 mg Dextrose (Dextrose 50% Inj) 0 ml IV STAT PRN; Protocol PRN Reason: Hypoglycemia Protocol Dextrose (Glutose 15) 0 gm PO ONCE PRN; Protocol PRN Reason: Hypoglycemia Protocol Gabapentin (Neurontin) 100 mg PO TID [facility] Last Admin: 01/23/18 17:27 Dose: 100 mg Glucagon (Glucagen Diagnostic Kit) 0 mg IM STAT PRN; Protocol PRN Reason: Hypoglycemia Protocol Hydralazine HCl (Apresoline) 25 mg PO QID [facility] Last Admin: 01/23/18 22:59 Dose: 25 mg Piperacillin Sod/Tazobactam (Sod 2.25 gm/ Sodium Chloride) 100 mls @ 200 mls/hr IVPB Q6H [facility]; Protocol Last Admin: 01/23/18 19:42 Dose: 200 mls/hr Insulin Human Regular (Novolin R) 0 unit SC ACHS [facility]; Protocol Last Admin: 01/23/18 17:27 Dose: Not Given Levothyroxine Sodium (Synthroid) 25 mcg PO DAILY@0630 [facility] Last Admin: 01/23/18 06:22 Dose: 25 mcg Metoprolol Tartrate (Lopressor) 5 mg IVP Q4H PRN PRN Reason: Heart rate Last Admin: 01/23/18 13:29 Dose: 5 mg Metoprolol Tartrate (Lopressor) 100 mg PO BIDBS [facility] Last Admin: 01/23/18 17:27 Dose: 100 mg Pantoprazole Sodium (Protonix Ec Tab) 40 mg PO DAILY [facility] Last Admin: 01/23/18 09:38 Dose: 40 mg - Labs Labs: 01/23/18 06:36 01/23/18 06:36 PT 21.3 SECONDS (9.7-12.2) H D 01/21/18 06:30 INR 1.9 D 01/21/18 06:30 APTT 37 SECONDS (21-34) H 01/21/18 06:30
--- NOTE | 2018-01-24 02:07 | CP.PCM.PN ---
Subjective - Date & Time of Evaluation Date of Evaluation: 01/17/18 - Subjective Subjective: dictated Objective - Vital Signs/Intake and Output Vital Signs (last 24 hours): Temp Pulse Resp BP Pulse Ox 98.2 F 104 H 20 157/88 H 95 01/23/18 23:05 01/23/18 23:05 01/23/18 23:05 01/23/18 23:05 01/23/18 23:05 Intake and Output: 01/23/18 01/24/18 18:59 06:59 Intake Total 770 630 Output Total 500 600 Balance 270 30 - Medications Medications: Current Medications Amlodipine Besylate (Norvasc) 5 mg PO DAILY [facility] Last Admin: 01/23/18 09:38 Dose: 5 mg Dextrose (Dextrose 50% Inj) 0 ml IV STAT PRN; Protocol PRN Reason: Hypoglycemia Protocol Dextrose (Glutose 15) 0 gm PO ONCE PRN; Protocol PRN Reason: Hypoglycemia Protocol Gabapentin (Neurontin) 100 mg PO TID [facility] Last Admin: 01/23/18 17:27 Dose: 100 mg Glucagon (Glucagen Diagnostic Kit) 0 mg IM STAT PRN; Protocol PRN Reason: Hypoglycemia Protocol Hydralazine HCl (Apresoline) 25 mg PO QID [facility] Last Admin: 01/23/18 22:59 Dose: 25 mg Piperacillin Sod/Tazobactam (Sod 2.25 gm/ Sodium Chloride) 100 mls @ 200 mls/hr IVPB Q6H [facility]; Protocol Last Admin: 01/23/18 19:42 Dose: 200 mls/hr Insulin Human Regular (Novolin R) 0 unit SC ACHS [facility]; Protocol Last Admin: 01/23/18 17:27 Dose: Not Given Levothyroxine Sodium (Synthroid) 25 mcg PO DAILY@0630 [facility] Last Admin: 01/23/18 06:22 Dose: 25 mcg Metoprolol Tartrate (Lopressor) 5 mg IVP Q4H PRN PRN Reason: Heart rate Last Admin: 01/23/18 13:29 Dose: 5 mg Metoprolol Tartrate (Lopressor) 100 mg PO BIDBS [facility] Last Admin: 01/23/18 17:27 Dose: 100 mg Pantoprazole Sodium (Protonix Ec Tab) 40 mg PO DAILY [facility] Last Admin: 01/23/18 09:38 Dose: 40 mg - Labs Labs: 01/23/18 06:36 01/23/18 06:36 PT 21.3 SECONDS (9.7-12.2) H D 01/21/18 06:30 INR 1.9 D 01/21/18 06:30 APTT 37 SECONDS (21-34) H 01/21/18 06:30
[2018-01-24] MEDS: Piperacillin/Tazobact 2.25 GM in Sodium Chloride 100 ML IVPB SCH ×4 (03:00→21:23)
[2018-01-24] MEDS: Levothyroxine 25 MCG TAB PO SCH (05:30)
--- NOTE | 2018-01-24 05:48 | PN ---
DATE: 01/23/2018 SUBJECTIVE: The patient, Nate, has right leg pain. He is refusing to have . He denies any fever, chills, or rigors. No nausea or vomiting. No cough. The patient has pain in the leg. PHYSICAL EXAMINATION: VITAL SIGNS: Blood pressure 157/88, pulse 104, respiratory rate 20, and temperature 98.2. LUNGS: Clear. CARDIOVASCULAR SYSTEM: S1 and S2, irregularly irregular. ABDOMEN: Soft. Nontender. Bowel sounds are positive. ASSESSMENT: 1. Traumatic hematoma with bleeding in the right leg. 2. Hypertension. 3. Atrial fibrillation. 4. Anemia of acute blood loss. 5. Chronic kidney disease, not on hemodialysis. PLAN: Physical therapy. Rehab. Pain medications. Hold anticoagulant. Kevni Osborne MD
--- NOTE | 2018-01-24 05:52 | PN ---
DATE: 01/24/2018 SUBJECTIVE: The patient is in ICU. He has right leg pain. He has extensive hematoma. He is bleeding more. He has received multiple blood transfusions. Overall, he is stable. PHYSICAL EXAMINATION: VITAL SIGNS: Blood pressure 152/93, pulse 102, respiratory rate 22, temperature 98. LUNGS: Clear. CARDIOVASCULAR SYSTEM: S1 and S2, irregularly irregular. EXTREMITIES: Right leg extensive hematoma with no evidence of fracture. ASSESSMENT: 1. Right leg traumatic hematoma due to a fall with coagulopathy due to Coumadin. 2. Atrial fibrillation. The patient has been on Coumadin at home. 3. Hypertension. 4. Chronic kidney disease. PLAN: Physical therapy. Rehab. Monitor the patient. Kevin Osborne MD
[2018-01-24] MEDS: Metoprolol 1 mg/ml Inj IVP PRN (06:05)
[2018-01-24 06:52] LABS: BASO # 0.1 K/uL (0.0-0.2); BASO % 1.2 % (0.0-2.0); EOS # 0.7 K/uL (0.0-0.7); HEMOGLOBIN 9.3 g/dL (12.0-18.0); LYMPH # 1.3 K/uL (1.0-4.3); LYMPH % 17.3 % (20.0-40.0); MEAN CELL VOLUME 93.4 fL (80.0-94.0); MEAN CORPUSCULAR HGB CONC 33.2 g/dL (33.0-37.0); MEAN PLATELET VOLUME 8.4 fL (7.2-11.7); MONO # 0.6 K/uL (0.0-0.8); MONO % 8.2 % (0.0-10.0); NEUT # 4.8 K/uL (1.8-7.0); NEUT % 64.3 % (50.0-75.0); WHITE BLOOD COUNT 7.5 K/uL (4.8-10.8)
[2018-01-24 07:36] LABS: ALB/GLOB RATIO 0.8 (1.0-2.1); ALBUMIN 2.9 g/dL (3.5-5.0); CALCIUM 8.8 mg/dl (8.6-10.4)
[2018-01-24] MEDS: (Novolin R) Insulin Human Regular 100 units/ml vial SC SCH ×4 (07:51→21:27)
--- NOTE | 2018-01-24 09:25 | CP.PCM.CON ---
History of Present Illness - History of Present Illness History of Present Illness: Orthopedic consultation Dr. Lopez 77M complains of right knee and thigh pain after fall 8 days prior to admission, so approx 16 days prior to today. He is still complaining of pain, but localizes mostly to right knee. He is non ambulatory and wheelchair bound at baseline. His INR was over 4 on admission, and he was diagnosed with thigh hematoma. At this time, he complains of pain to leg but mostly in knee. He says he has pain trying to bend knee. Denies numbness/tingling, CP/SOB/dizziness. Denies fever/chills. Review of Systems - Review of Systems All systems: reviewed and no additional remarkable complaints except - Constitutional Constitutional: As Per HPI - Cardiovascular Cardiovascular: As Per HPI - Gastrointestinal Gastrointestinal: As Per HPI Additional comments: no n/v - Musculoskeletal Musculoskeletal: As Per HPI - Integumentary Integumentary: Change in Pigmentation - Neurological Neurological: As Per HPI - Hematologic/Lymphatic Hematologic: Easy Bruising Past Patient History - Infectious Disease Hx of Infectious Diseases: None - Past Medical History & Family History Past Medical History?: Yes Past Family History: Reviewed and not pertinent - Past Social History Smoking Status: Never Smoked - CARDIAC Hx Atrial Fibrillation: Yes Hx Congestive Heart Failure: No Hx Hypercholesterolemia: Yes Hx Hypertension: Yes - PULMONARY Hx Chronic Obstructive Pulmonary Disease (COPD): No - NEUROLOGICAL Hx Neurological Disorder: No - HEENT Hx HEENT Problems: No - RENAL Hx Chronic Kidney Disease: No - ENDOCRINE/METABOLIC Hx Hypothyroidism: No - HEMATOLOGICAL/ONCOLOGICAL Hx Human Immunodeficiency Virus (HIV): No - INTEGUMENTARY Hx Dermatological Problems: No - MUSCULOSKELETAL/RHEUMATOLOGICAL Hx Arthritis: No Hx Rheumatoid Arthritis: No - GASTROINTESTINAL Hx Gastrointestinal Disorders: No - GENITOURINARY/GYNECOLOGICAL Hx Genitourinary Disorders: No - PSYCHIATRIC Hx Substance Use: No - SURGICAL HISTORY Hx Coronary Stent: Yes - ANESTHESIA Hx Anesthesia: Yes Hx Anesthesia Reactions: No Hx Malignant Hyperthermia: No Meds Allergies/Adverse Reactions: Allergies Allergy/AdvReac Type Severity Reaction Status Date / Time No Known Allergies Allergy Verified 01/16/18 06:18 - Medications Medications: Current Medications Dextrose (Dextrose 50% Inj) 0 ml IV STAT PRN; Protocol PRN Reason: Hypoglycemia Protocol Dextrose (Glutose 15) 0 gm PO ONCE PRN; Protocol PRN Reason: Hypoglycemia Protocol Gabapentin (Neurontin) 100 mg PO TID [facility] Last Admin: 01/23/18 17:27 Dose: 100 mg Glucagon (Glucagen Diagnostic Kit) 0 mg IM STAT PRN; Protocol PRN Reason: Hypoglycemia Protocol Hydralazine HCl (Apresoline) 50 mg PO Q8 [facility] Last Admin: 01/24/18 05:26 Dose: 50 mg Piperacillin Sod/Tazobactam (Sod 2.25 gm/ Sodium Chloride) 100 mls @ 200 mls/hr IVPB Q6H [facility]; Protocol Last Admin: 01/24/18 07:55 Dose: 200 mls/hr Insulin Human Regular (Novolin R) 0 unit SC ACHS [facility]; Protocol Last Admin: 01/24/18 07:51 Dose: 2 unit Levothyroxine Sodium (Synthroid) 25 mcg PO DAILY@0630 [facility] Last Admin: 01/24/18 05:30 Dose: 25 mcg Metoprolol Tartrate (Lopressor) 5 mg IVP Q4H PRN PRN Reason: Heart rate Last Admin: 01/24/18 06:05 Dose: 5 mg Metoprolol Tartrate (Lopressor) 100 mg PO BIDBS [facility] Last Admin: 01/24/18 07:52 Dose: 100 mg Pantoprazole Sodium (Protonix Ec Tab) 20 mg PO DAILY [facility] Physical Exam - Constitutional Appears: Well, No Acute Distress - Respiratory Exam Respiratory Exam: NORMAL BREATHING PATTERN - Cardiovascular Exam Additional comments: +DP/PT pulses - Expanded Lower Extremities Exam Right Upper Leg exam: swelling, tenderness (noted tender hematoma palpable lateral thigh) Knee exam: ecchymosis (no laxity to varus/valgus/denise, pain with AROM >40 degrees in knee), effusion, full knee extension, tenderness Lower Leg Exam: tenderness (edema) Ankle exam: FULL ROM (edema) - Neurological Exam Neurological exam: Alert - Psychiatric Exam Psychiatric exam: Normal Affect, Normal Mood - Skin Skin Exam: Dry, Intact, Warm Additional comments: ecchymosis to right anterior knee Results - Vital Signs Recent Vital Signs: Last Vital Signs Temp 98.3 F 01/24/18 07:30 Pulse 113 H 01/24/18 07:30 Resp 20 01/24/18 07:30 BP 145/88 01/24/18 07:30 Pulse Ox 96 01/24/18 07:30 - Labs Result Diagrams: 01/24/18 06:44 11/27/18 06:44 Labs: Laboratory Results - last 24 hr 01/23/18 01/23/18 01/23/18 11:21 16:52 21:37 WBC RBC Hgb Hct MCV MCH MCHC RDW Plt Count MPV Neut % (Auto) Lymph % (Auto) [place] % (Auto) Eos % (Auto) Baso % (Auto) Neut # (Auto) Lymph # (Auto) [place] # (Auto) Eos # (Auto) Baso # (Auto) Sodium Potassium Chloride Carbon Dioxide Anion Gap BUN Creatinine Est GFR ( Amer) Est GFR (Non-Af Amer) POC Glucose (mg/dL) 174 H 126 H 127 H Random Glucose Calcium Phosphorus Magnesium Total Bilirubin AST ALT Alkaline Phosphatase Total Protein Albumin Globulin Albumin/Globulin Ratio 01/24/18 01/24/18 01/24/18 06:22 06:44 06:44 WBC 7.5 RBC 3.00 L Hgb 9.3 L Hct 28.1 L MCV 93.4 MCH 31.0 MCHC 33.2 RDW 19.0 H Plt Count 251 MPV 8.4 Neut % (Auto) 64.3 Lymph % (Auto) 17.3 L [place] % (Auto) 8.2 Eos % (Auto) 9.0 H Baso % (Auto) 1.2 Neut # (Auto) 4.8 Lymph # (Auto) 1.3 [place] # (Auto) 0.6 Eos # (Auto) 0.7 Baso # (Auto) 0.1 Sodium 141 Potassium 4.0 Chloride 108 H Carbon Dioxide 20 L Anion Gap 16 BUN 30 H Creatinine 2.5 H Est GFR ( Amer) 30 Est GFR (Non-Af Amer) 25 POC Glucose (mg/dL) 153 H Random Glucose 155 H Calcium 8.8 Phosphorus 3.8 Magnesium 1.8 Total Bilirubin 1.7 H AST 16 L D ALT 15 L Alkaline Phosphatase 65 Total Protein 6.6 Albumin 2.9 L Globulin 3.7 Albumin/Globulin Ratio 0.8 L - Impressions Impression: Patient Name / ID : ROMA CHERRY N / [id number] Exam Date : 01/23/2018 13:09:55 ( Approved ) Study Comment : Sex / Age : M / 77Y Creator : Jenni Hernandez Dictator : Kayden Kern MD Heel Coverer Machine Operator : Decom[employer] Well Site Manager : Kayden Kern MD Approver2 : Report Date : 01/23/2018 13:26:52 My Comment : Date of service: 01/23/2018 PROCEDURE: CT of the right lower extremity/thigh without contrast HISTORY: reeval for hematoma COMPARISON: Comparison is made to the previous study dated 01/16/2018 TECHNIQUE: Axial and reformatted coronal and sagittal CT images of the right thigh without contrast were obtained from level of right sacroiliac joint to the right knee without IV contrast administration. Total exam DLP: 1440.17 FINDINGS: Again noted is high attenuation fluid collection at the anterior aspect of the mid and distal thigh. Findings again likely represent hematoma. The hematoma appears small heterogeneous in the current study compared to the previous exam measures 22.8 centimeter in the longitudinal diameter 9 centimeter in the largest transverse diameter and 6.5 centimeter in the largest AP diameter. No evidence of acute displaced fracture in the right femur. There are small foci of lucency noted in the femoral condyle and proximal portion of the right tibia of uncertain etiology. There is irregularity noted at the articular surface of the right tibial plateau. No evidence of acute dislocation at the right hip and right knee. Diffuse vascular calcification in femoral and popliteal arteries are again noted. There is a small right knee joint effusion. IMPRESSION: Interval mild increase in the size of the mid and distal anterior right thigh hematoma which appears heterogeneous in the current study. Otherwise no interval changes. Patient Name / ID : ROMA CHERRY N / [id number] Exam Date : 01/17/2018 14:50:23 ( Approved ) Study Comment : Sex / Age : M / 77Y Creator : Mark Barksdale Dictator : Mark Barksdale Heel Coverer Machine Operator : [employer] Well Site Manager : Humberto Whitney MD Approver2 : Report Date : 01/17/2018 16:07:05 My Comment : Date of service: 01/17/2018 PROCEDURE: Lower Extremity Venous Duplex Exam. HISTORY: dvt PRIORS: None. TECHNIQUE: Bilateral common femoral, femoral, popliteal and posterior tibial, peroneal and great saphenous veins were evaluated. Flow was assessed with color Doppler, compressibility, assessment of phasic flow and augmentation response. Report prepared by Mark Barksdale, MINO, RVT FINDINGS: RIGHT: 1. Common Femoral Vein: 1.1. Compressibility - Fully compressible: Thrombus - None : Flow - Phasic: Augmentation -Normal: Reflux - None. 2. Femoral Vein: 2.1. Compressibility - Fully compressible: Thrombus - None : Flow - Phasic: Augmentation -Normal: Reflux - None. 3. Popliteal Vein: 3.1. Compressibility - Fully compressible: Thrombus - None : Flow - Phasic: Augmentation -Normal: Reflux - None. 4. Posterior Tibial Vein: 4.1. Compressibility - Fully compressible: Thrombus - None: Flow - Phasic: Augmentation -Normal: Reflux - None. 5. Peroneal Vein: 5.1. Compressibility - Fully compressible: Thrombus - None: Flow - Phasic: Augmentation -Normal: Reflux - None. 6. Great Saphenous Vein: 6.1. Compressibility - Fully compressible: Thrombus - None: Flow - Phasic: Augmentation - Normal: Reflux - None. LEFT: 1. Common Femoral Vein: 1.1. Compressibility - Fully compressible: Thrombus - None: Flow - Phasic: Augmentation -Normal: Reflux - None. 2. Femoral Vein: 2.1. Compressibility - Fully compressible: Thrombus - None: Flow - Phasic: Augmentation -Normal: Reflux - None. 3. Popliteal Vein: 3.1. Compressibility - Fully compressible: Thrombus - None : Flow - Phasic: Augmentation -Normal: Reflux - None. 4. Posterior Tibial Vein: 4.1. Compressibility - Fully compressible: Thrombus - None: Flow - Phasic: Augmentation -Normal: Reflux - None. 5. Peroneal Vein: 5.1. Compressibility - Fully compressible: Thrombus - None: Flow - Phasic: Augmentation -Normal: Reflux - None. 6. Great Saphenous Vein: 6.1. Compressibility - Fully compressible: Thrombus - None: Flow - Phasic: Augmentation - Normal: Reflux - None. OTHER FINDINGS: Right: None significant. Left: None significant. IMPRESSION: Right: No evidence of deep or superficial vein thrombosis of the right lower extremity. Normal valve function noted of the right side. Left: No evidence of deep or superficial vein thrombosis of the left lower extremity. Normal valve function noted of the left side. atient Name / ID : ROMA CHERRY N / [id number] Exam Date : 01/16/2018 09:41:22 ( Approved ) Study Comment : Sex / Age : M / 77Y Creator : Titi Martinez MD Dictator : Titi Martinez MD Heel Coverer Machine Operator : [employer] Well Site Manager : Titi Martinez MD Approver2 : Report Date : 01/16/2018 12:33:05 My Comment : * Date of service: 01/16/2018 PROCEDURE: CT of the Right Hip. HISTORY: Trauma/right hip/upper leg swelling COMPARISON: None available. TECHNIQUE: Contiguous axial images of the lower extremity were obtained from the acetabulum to the distal foot region.. Coronal and sagittal reformats were generated. Radiation dose: Total exam DLP = 1168.97 mGy-cm. This CT exam was performed using one or more of the following dose reduction techniques: Automated exposure control, adjustment of the mA and/or kV according to patient size, and/or use of iterative reconstruction technique. FINDINGS: BONES: Diffuse demineralization of the most pronounced at the level of the distal femur as well as the proximal and distal tibia-fibula. No definitive evidence of acute displaced fracture nor dislocation. Contour. RIGHT HIP JOINT: Minor degenerative osteoarthritis. SOFT TISSUES: There is a large elliptical shaped heterogeneous soft tissue density within the of soft tissues right thigh extending from proximal 1/3--1/2 distally to the level of the metaphyseal region consistent with a large hematoma of likely in tramuscular (apparently within the confines of the vastus medialis and intermedius). There is infiltration changes seen in the surrounding concomitants cellulitis cannot be excluded. Infiltration extends into the subcutaneous fat of the tibia and fibula to the level of the ankle. There is a small suprapatellar joint effusion. Vascular calcifications. Incidental note is made of a in situ Lord catheter, the balloon of the within the proximal prostatic urethra. This must be repositioned. A few tiny bubbles of air just adjacent to the distal the tip of the Lord balloon is present possibly outside of the Lord and in the prostatic urethra though few bubbles of air outside the confines of the prostatic urethra not excluded. Enlarged prostate gland likely due to BPH however correlation with PSA recommended to exclude prostatic carcinoma. Vascular calcifications In situ left ureteral stent. IMPRESSION: Large intramuscular hematoma within most of the mid thigh apparently within the vastus medialis and intermedius. There are diffuse infiltration changes seen throughout the subcutaneous tissues of the left thigh extending distally to the level of the ankle region. Findings likely due to edema however the possibility of a cellulitis not excluded. Small suprapatellar joint effusion. No definitive evidence of acute displaced fracture nor dislocation. Mild diffuse demineralization most conspicuous at the level of the distal femur as well proximal and distal tibia/fibula. In situ Lord catheter, the inflated balloon Lord balloon of which located in the prostatic urethra and should be repositioned. See above discussion for additional details. Markedly enlarged prostate gland likely due to BPH however correlation with PSA to exclude prostatic carcinoma. Findings were discussed with Dr. Nieves approximately 12:10 p.m. with written down and read back verif ication. Patient Name / ID : ROMA CHERRY N / [id number] Exam Date : 01/16/2018 07:38:31 ( Approved ) Study Comment : Sex / Age : M / 77Y Creator : Dhruv Call MD Dictator : Dhruv Call MD Heel Coverer Machine Operator : [employer]ing Well Site Manager : Dhruv Call MD Approver2 : Report Date : 01/16/2018 08:58:01 My Comment : PROCEDURE: Radiographs of the pelvis and bilateral hips HISTORY: trauma COMPARISON: None. FINDINGS: BONES: Pelvis: Unremarkable. Right hip:Unremarkable. Left hip:Unremarkable. JOINTS: Right hip: Unremarkable. Left hip: Unremarkable. Sacroiliac Joints: Unremarkable. Pubic symphysis: Unremarkable. SOFT TISSUES: Normal. OTHER FINDINGS: Left ureteral stent noted. IMPRESSION: No evidence of fracture or dislocation atient Name / ID : ROMA Espino / [id number] Exam Date : 01/16/2018 07:38:08 ( Approved ) Study Comment : Sex / Age : M / Y Creator : Dhruv Call MD Dictator : Dhruv Call MD Heel Coverer Machine Operator : Decom[employer]ing Well Site Manager : Dhruv Call MD Approver2 : Report Date : 01/16/2018 08:59:03 My Comment : Date of service: 01/16/2018 PROCEDURE: Right Femur Radiographs. HISTORY: trauma COMPARISON: None. TECHNIQUE: AP and Lateral Radiographs of the right femur. FINDINGS: FEMUR: Limited examination consists of single view of right femur done in 2 segments. No fracture. No lytic or blastic osseous lesion. SOFT TISSUES: Normal. OTHER FINDINGS: None. IMPRESSION: Normal limited examination Patient Name / ID : ROMA Espino / [id number] Exam Date : 01/16/2018 07:37:55 ( Approved ) Study Comment : Sex / Age : M / Y Creator : Dhruv Call MD Dictator : Dhruv Call MD Heel Coverer Machine Operator : Decom[employer]ing Well Site Manager : Dhruv Call MD Approver2 : Report Date : 01/16/2018 10:01:06 My Comment : Date of service: 01/16/2018 PROCEDURE: Right Knee Radiographs. HISTORY: trauma COMPARISON: None. FINDINGS: BONES: Transverse lucency across proximal right tibial metaphysis may reflect nondisplaced fracture. Further evaluation advised. No other fracture identified. There is patchy osteopenia seen most prominently in the distal femoral epiphysis and in the patella. The possibility small lytic metastases or multiple myeloma should be considered. JOINTS: Normal. No osteoarthritis. JOINT EFFUSION: None. OTHER FINDINGS: None. IMPRESSION: Questionable nondisplaced proximal tibial fracture. Further radiographic evaluation advised. Patchy osteopenia about the knee with small ill-defined lytic lesions possibly representing multiple myeloma or small lytic metastases. Further evaluation advised. Consider magnetic resonance imaging. Patient Name / ID : ROMA CHERRY N / [id number] Exam Date : 01/16/2018 07:37:12 ( Approved ) Study Comment : Sex / Age : M / 77Y Creator : Dhruv Call MD Dictator : Dhruv Call MD Heel Coverer Machine Operator : Decom[employer]ing Well Site Manager : Dhruv Call MD Approver2 : Report Date : 01/16/2018 09:04:31 My Comment : Date of service: 01/16/2018 PROCEDURE: Right Ankle Radiographs. HISTORY: trauma COMPARISON: None available. FINDINGS: BONES: No acute fracture. Plantar calcaneal spur incidentally noted. JOINTS: Normal. No osteoarthritis. Ankle mortise maintained. Talar dome intact SOFT TISSUES: Normal. OTHER FINDINGS: None. IMPRESSION: No acute fracture. Assessment & Plan (1) Right knee pain Assessment and Plan: after fall mottled appearance of proximal tibial and distal femur of right knee, ?lytic lesions, r/o multiple myeloma, r/o mets, r/o degenerative changes MRI right knee, with contrast if possible (Cr 2.5) CT of just right knee, coronal and sagittal slices are not well visualized on CT of entire extremity xrays B knees from 11/2016 reviewed to compare, there is some mottling of left patella at that time, but no changes to the right knee are noted as compared to imaging this admission MRI R knee 06/11/2015 does not show any bony lesions f/u imaging, recommend hem/onc consultation knee immobilizer, possible fracture of right proximal tibia as well, non displaced, not well visualized on prior CT, will review imaging dopplers negative 01/16/18 d/w Dr. Lopez, agrees with above Status: Acute (2) Leg hematoma Assessment and Plan: appears clinically stable as knee pain now is chief complaint f/u INR monitor Status: Acute Radiology Interpretation - Radiology Interpretation #2 Interpretation: atient Name / ID : ROMA CHERRY / [id number] Exam Date : 01/24/2018 10:03:13 ( Approved ) Study Comment : Sex / Age : M / 77Y Creator : Jenni Hernandez Dictator : Kayden Kern MD Heel Coverer Machine Operator : Decommissioning Well Site Manager : Kayden Kern MD Approver2 : Report Date : 01/24/2018 10:15:58 My Comment : Date of service: 01/24/2018 PROCEDURE: CT of the right knee without contrast HISTORY: right knee: knee pain swelling r/o fx, r/o tumor COMPARISON: Comparison is made with the previous x-ray dated 12/02/2016 and 01/16/[address] dated 01/16/2018 TECHNIQUE: Axial and reformatted coronal and sagittal CT images of the right knee were obtained without IV contrast administration. FINDINGS: The study demonstrate diffuse heterogeneous attenuation of the osseous structures around the right knee contains multiple lytic foci. Findings are nonspecific and the differential diagnosis includes severe osteoporosis versus multiple myeloma or less likely malignant lytic lesions. There is focal compression deformity noted at the posterior medial aspect of the right tibial plateau to best seen on the coronal images 72 associated with mild sclerotic changes. Otherwise no evidence of acute fracture. Partially imaged the heterogeneous hematoma at the anterior aspect of the distal right thigh. There is small right knee joint effusion. There is diffuse atherosclerotic calcification noted [id number] diffuse muscle atrophy and slky-[id number] edema noted. IMPRESSION: Suspicious for focal compression deformity at the medial posterior aspect of the right tibial plateau. If clinically warranted further assessment by MRI may be obtained. Multiple small hypodensities/lytic foci in osseous structures around the right knee of uncertain etiology. Additional findings as discussed above. atient Name / ID : ROMA CHERRY / [id number] Exam Date : 01/24/2018 10:42:12 ( Approved ) Study Comment : Sex / Age : M / 77Y Creator : Kayden Kern MD Dictator : Kayden Kern MD Heel Coverer Machine Operator : Decommissioning Well Site Manager : Kayden Kern MD Approver2 : Report Date : 01/24/2018 13:16:58 My Comment : Date of service: 01/24/2018 PROCEDURE: MRI Right Knee HISTORY: Pain swelling evaluate for fracture versus tumor. COMPARISON: Comparison is made with the previous same-day CT of the right the previous CT of the right lower extremity dated 01/16/2018 TECHNIQUE: Multiecho multiplanar sequences were performed through the right knee. FINDINGS: ANTERIOR CRUCIATE LIGAMENT:: There is mild widening and abnormal signal at the anterior tibial portion of the ACL suggestive of moderate grade 2 - 3 sprain. POSTERIOR CRUCIATE LIGAMENT:: Intact. MEDIAL MENISCUS:: Intact. LATERAL MENISCUS:: Intact. MEDIAL COLLATERAL LIGAMENT:: Mild grade 1 sprain noted. LATERAL COLLATERAL LIGAMENT COMPLEX:: Intact. QUADRICEPS TENDON:: Lucency and mild increased signal noted in the quadriceps tendon suggestive of tendinopathy. PATELLAR TENDON:: Increase signal also noted in the patellar tendon suggestive of mild tendinopathy. CARTILAGE:: Brpz-fk-brupbcke patellar chondromalacia noted. There are also small foci of cartilage defects noted at the femoral condyles. JOINT FLUID:: There is small to moderate amount of suprapatellar joint effusion. OSSEOUS STRUCTURES:: There is focal bone marrow edema and abnormal signal noted at the posterior aspect of the medial tibial plateau to corresponding to the focal defect/compression deformity noted in the previous CT and suspicious for acute fracture or bone contusion. There is heterogeneous bone marrow edema also noted at the lateral proximal tibia and tibial plateau to suggestive of bone contusion or and nondisplaced small fracture. Otherwise the osseous structures are grossly unremarkable. OTHER FINDINGS: Moderate diffuse soft tissue edema. IMPRESSION: Foci of bone marrow edema noted at the medial tibial plateau posteriorly and in the lateral proximal right tibia and tibial plateau suggestive of bone contusion and possible small fractures. Additional findings as discussed above. Diffuse moderate soft tissue edema and small to moderate amount of joint effusion.
--- NOTE | 2018-01-24 11:02 | CT ---
Date of service: 01/24/2018 PROCEDURE: CT of the right knee without contrast HISTORY: right knee: knee pain swelling r/o fx, r/o tumor COMPARISON: Comparison is made with the previous x-ray dated 12/02/2016 and 01/16/[address] dated 01/16/2018 TECHNIQUE: Axial and reformatted coronal and sagittal CT images of the right knee were obtained without IV contrast administration. FINDINGS: The study demonstrate diffuse heterogeneous attenuation of the osseous structures around the right knee contains multiple lytic foci. Findings are nonspecific and the differential diagnosis includes severe osteoporosis versus multiple myeloma or less likely malignant lytic lesions. There is focal compression deformity noted at the posterior medial aspect of the right tibial plateau to best seen on the coronal images 72 associated with mild sclerotic changes. Otherwise no evidence of acute fracture. Partially imaged the heterogeneous hematoma at the anterior aspect of the distal right thigh. There is small right knee joint effusion. There is diffuse atherosclerotic calcification noted [id number] diffuse muscle atrophy and pjlu-ek-uzhtscgx edema noted. IMPRESSION: Suspicious for focal compression deformity at the medial posterior aspect of the right tibial plateau. If clinically warranted further assessment by MRI may be obtained. Multiple small hypodensities/lytic foci in osseous structures around the right knee of uncertain etiology. Additional findings as discussed above.
[2018-01-24] MEDS: Pantoprazole 20 mg EC Tab PO SCH (12:00)
--- NOTE | 2018-01-24 13:20 | MRI ---
Date of service: 01/24/2018 PROCEDURE: MRI Right Knee HISTORY: Pain swelling evaluate for fracture versus tumor. COMPARISON: Comparison is made with the previous same-day CT of the right the previous CT of the right lower extremity dated 01/16/2018 TECHNIQUE: Multiecho multiplanar sequences were performed through the right knee. FINDINGS: ANTERIOR CRUCIATE LIGAMENT:: There is mild widening and abnormal signal at the anterior tibial portion of the ACL suggestive of moderate grade 2 - 3 sprain. POSTERIOR CRUCIATE LIGAMENT:: Intact. MEDIAL MENISCUS:: Intact. LATERAL MENISCUS:: Intact. MEDIAL COLLATERAL LIGAMENT:: Mild grade 1 sprain noted. LATERAL COLLATERAL LIGAMENT COMPLEX:: Intact. QUADRICEPS TENDON:: Lucency and mild increased signal noted in the quadriceps tendon suggestive of tendinopathy. PATELLAR TENDON:: Increase signal also noted in the patellar tendon suggestive of mild tendinopathy. CARTILAGE:: [id number] patellar chondromalacia noted. There are also small foci of cartilage defects noted at the femoral condyles. JOINT FLUID:: There is small to moderate amount of suprapatellar joint effusion. OSSEOUS STRUCTURES:: There is focal bone marrow edema and abnormal signal noted at the posterior aspect of the medial tibial plateau to corresponding to the focal defect/compression deformity noted in the previous CT and suspicious for acute fracture or bone contusion. There is heterogeneous bone marrow edema also noted at the lateral proximal tibia and tibial plateau to suggestive of bone contusion or and nondisplaced small fracture. Otherwise the osseous structures are grossly unremarkable. OTHER FINDINGS: Moderate diffuse soft tissue edema. IMPRESSION: Foci of bone marrow edema noted at the medial tibial plateau posteriorly and in the lateral proximal right tibia and tibial plateau suggestive of bone contusion and possible small fractures. Additional findings as discussed above. Diffuse moderate soft tissue edema and small to moderate amount of joint effusion.
[2018-01-24 14:16] LABS: INR 2.6; PROTHROMBIN TIME 28.6 SECONDS (9.7-12.2)
--- NOTE | 2018-01-24 19:17 | PN ---
DATE: 01/24/2018 FOLLOWUP SUBJECTIVE: The patient is experiencing right thigh pain and tenderness on touch. No foot pain and no chest pain. PHYSICAL EXAMINATION: VITAL SIGNS: Blood pressure 145/88, heart rate 115, temperature 98.3, and respirations 20. HEENT: Pale conjunctivae. CHEST: Clear. HEART: S1 and S2, irregular. EXTREMITIES: Edematous and tender swollen right thigh. LABORATORY DATA: SMA-7: Sodium 141, potassium 4, chloride 108, CO2 of 20, glucose 155, BUN 30, and creatinine 2.5. Today's hemoglobin and hematocrit 9.3 and 28.1, white count and platelet count are within normal limits. Right thigh CT scan performed today revealed interval mild increase in the size of the mid and distal anterior right thigh hematoma, which appears heterogeneous in the current study, otherwise no interval change. Today's lower extremity CT scan with contrast was suspicious for focal compression deformity, intermediate posterior aspect of the right tibial plateau. If clinically warranted, further assessment by MRI was obtained. Multiple small hyperdense/lytic foci and osseous structures around the right knee of uncertain etiology. Lower extremity MRI was performed today, and it revealed foci of bone marrow edema, noted at the medial tibial plateau posteriorly and then lateral proximal right tibia and tibial plateau suggestive of bone contusion and possible small fractures. Diffuse moderate soft tissue edema and [id number] amount of joint effusion. I did review the orthopedic consultation and the impression was mild increase in the size of the mid and distal anterior right thigh hematoma which appears heterogeneous. Appears clinically stable as knee pain now is chief compliant. Follow up INR. ASSESSMENT: 1. Right thigh hematoma, status post fall and coagulopathy. 2. Chronic atrial fibrillation. 3. Anemia. 4. Chronic renal insufficiency. 5. Hypertension. RECOMMENDATIONS: Continue hydralazine 50 mg every 8 hours, Lopressor 100 mg twice a day, Zosyn 2.25 g intravenously every 6 hours, Synthroid 25 mcg daily. I will obtain repeat CT and INR today. No anticoagulation is justified so far. Now follow up with hair specialist. Clinically, there is no evidence of left foot or leg ischemia. Jenaro Jung MD [facility] # [id number]
--- NOTE | 2018-01-24 21:55 | CP.PCM.PN ---
Subjective - Subjective Subjective: dictated Objective - Vital Signs/Intake and Output Vital Signs (last 24 hours): Temp Pulse Resp BP Pulse Ox 98.2 F 101 H 20 150/88 94 L 01/24/18 15:00 01/24/18 20:40 01/24/18 20:40 01/24/18 20:40 01/24/18 20:40 Intake and Output: 01/24/18 01/25/18 18:59 06:59 Intake Total 560 Output Total 400 Balance 160 - Medications Medications: Current Medications Dextrose (Dextrose 50% Inj) 0 ml IV STAT PRN; Protocol PRN Reason: Hypoglycemia Protocol Dextrose (Glutose 15) 0 gm PO ONCE PRN; Protocol PRN Reason: Hypoglycemia Protocol Gabapentin (Neurontin) 100 mg PO TID [facility] Last Admin: 01/24/18 17:15 Dose: 100 mg Glucagon (Glucagen Diagnostic Kit) 0 mg IM STAT PRN; Protocol PRN Reason: Hypoglycemia Protocol Hydralazine HCl (Apresoline) 50 mg PO Q8 [facility] Last Admin: 01/24/18 21:23 Dose: 50 mg Piperacillin Sod/Tazobactam (Sod 2.25 gm/ Sodium Chloride) 100 mls @ 200 mls/hr IVPB Q6H [facility]; Protocol Last Admin: 01/24/18 21:23 Dose: 200 mls/hr Insulin Human Regular (Novolin R) 0 unit SC ACHS [facility]; Protocol Last Admin: 01/24/18 21:27 Dose: Not Given Levothyroxine Sodium (Synthroid) 25 mcg PO DAILY@0630 [facility] Last Admin: 01/24/18 05:30 Dose: 25 mcg Metoprolol Tartrate (Lopressor) 5 mg IVP Q4H PRN PRN Reason: Heart rate Last Admin: 01/24/18 06:05 Dose: 5 mg Metoprolol Tartrate (Lopressor) 100 mg PO BIDBS [facility] Last Admin: 01/24/18 15:49 Dose: 100 mg Pantoprazole Sodium (Protonix Ec Tab) 20 mg PO DAILY [facility] Last Admin: 01/24/18 12:00 Dose: 20 mg - Labs Labs: 01/24/18 06:44 01/24/18 06:44 PT 28.6 SECONDS (9.7-12.2) H 01/24/18 14:00 INR 2.6 01/24/18 14:00 APTT 43 SECONDS (21-34) H 01/24/18 14:00
[2018-01-25] MEDS: Piperacillin/Tazobact 2.25 GM in Sodium Chloride 100 ML IVPB SCH ×4 (01:03→21:29)
[2018-01-25] MEDS: Metoprolol 1 mg/ml Inj IVP PRN (04:06)
[2018-01-25] MEDS: Levothyroxine 25 MCG TAB PO SCH (06:11)
[2018-01-25 06:59] LABS: BASO # 0.1 K/uL (0.0-0.2); BASO % 1.5 % (0.0-2.0); EOS # 0.6 K/uL (0.0-0.7); HEMOGLOBIN 9.3 g/dL (12.0-18.0); LYMPH # 1.2 K/uL (1.0-4.3); LYMPH % 16.5 % (20.0-40.0); MEAN CELL VOLUME 93.8 fL (80.0-94.0); MEAN CORPUSCULAR HEMOGLOBIN 31.3 pg (27.0-31.0); MEAN CORPUSCULAR HGB CONC 33.3 g/dL (33.0-37.0); MEAN PLATELET VOLUME 8.8 fL (7.2-11.7); MONO # 0.7 K/uL (0.0-0.8); MONO % 9.7 % (0.0-10.0); NEUT # 4.7 K/uL (1.8-7.0); NEUT % 64.3 % (50.0-75.0); RBC 2.97 Mil/uL (4.40-5.90); RED CELL DISTRIBUTION WIDTH 19.7 % (11.5-14.5); WHITE BLOOD COUNT 7.2 K/uL (4.8-10.8)
[2018-01-25 07:31] LABS: ALB/GLOB RATIO 0.8 (1.0-2.1); CALCIUM 8.8 mg/dl (8.6-10.4)
--- NOTE | 2018-01-25 08:13 | PN ---
DATE: 01/25/2018 SUBJECTIVE: The patient has right hip pain. He has CAT scan done on his right leg. The patient has extensive hematoma, but there is no compartmental syndrome. He has some pain. He is on physiotherapy. He has a Lord catheter and patient is reluctant to have his Lord catheter removed. The patient is not bleeding in the right leg now. No fever. No chills. PHYSICAL EXAMINATION: VITAL SIGNS: Blood pressure is 162/97, pulse 102, respiratory rate 20, and temperature 97.8. LUNGS: Clear. No rales or rhonchi. CARDIOVASCULAR SYSTEM: S1 and S2 irregularly regular. ABDOMEN: Soft. EXTREMITIES: Right leg, there is extensive swelling. ASSESSMENT: 1. Right leg hematoma due to trauma with combination with coagulopathy due to Coumadin. 2. Atrial fibrillation, on Coumadin. 3. Hypertension. PLAN: Physical therapy rehab. As long as the patient's H and H is stable, there is no need for any further blood transfusion and Orthopedic followup. Physical therapy rehab. Kevin Osborne MD
[2018-01-25] MEDS: (Novolin R) Insulin Human Regular 100 units/ml vial SC SCH ×4 (08:15→21:37)
[2018-01-25] MEDS: Pantoprazole 20 mg EC Tab PO SCH (09:36)
[2018-01-25] MEDS: Sodium Chloride 0.9% 1,000 ML IV SCH (10:45)
--- NOTE | 2018-01-25 12:58 | CP.PCM.PN ---
Subjective - Date & Time of Evaluation Date of Evaluation: 01/25/18 Time of Evaluation: 08:00 - Subjective Subjective: Patient still complaining of right knee pain. Denies numbness/tingling Review of Systems - Review of Systems All systems: reviewed and no additional remarkable complaints except - Cardiovascular Cardiovascular: UNREMARKABLE - Respiratory Respiratory: UNREMARKABLE - Gastrointestinal Gastrointestinal: UNREMARKABLE - Musculoskeletal Musculoskeletal: As Par HPI - Integumentary Integumentary: UNREMARKABLE - Neurological Neurological: UNREMARKABLE - Hematologic/Lymphatic Hematologic: Easy Bruising Objective - Vital Signs/Intake and Output Vital Signs (last 24 hours): Temp Pulse Resp BP Pulse Ox 97.7 F 99 H 18 146/90 97 01/25/18 07:00 01/25/18 07:00 01/25/18 07:00 01/25/18 07:00 01/25/18 07:00 Intake and Output: 01/25/18 01/25/18 06:59 18:59 Intake Total 320 Output Total 600 Balance -280 - Medications Medications: Current Medications Dextrose (Dextrose 50% Inj) 0 ml IV STAT PRN; Protocol PRN Reason: Hypoglycemia Protocol Dextrose (Glutose 15) 0 gm PO ONCE PRN; Protocol PRN Reason: Hypoglycemia Protocol Gabapentin (Neurontin) 100 mg PO TID [facility] Last Admin: 01/25/18 09:41 Dose: 100 mg Glucagon (Glucagen Diagnostic Kit) 0 mg IM STAT PRN; Protocol PRN Reason: Hypoglycemia Protocol Hydralazine HCl (Apresoline) 50 mg PO Q8 [facility] Last Admin: 01/25/18 06:11 Dose: 50 mg Piperacillin Sod/Tazobactam (Sod 2.25 gm/ Sodium Chloride) 100 mls @ 200 mls/hr IVPB Q6H [facility]; Protocol Last Admin: 01/25/18 08:43 Dose: 200 mls/hr Insulin Human Regular (Novolin R) 0 unit SC ACHS [facility]; Protocol Last Admin: 01/25/18 08:15 Dose: Not Given Levothyroxine Sodium (Synthroid) 25 mcg PO DAILY@0630 [facility] Last Admin: 01/25/18 06:11 Dose: 25 mcg Metoprolol Tartrate (Lopressor) 5 mg IVP Q4H PRN PRN Reason: Heart rate Last Admin: 01/25/18 04:06 Dose: 5 mg Metoprolol Tartrate (Lopressor) 100 mg PO BIDBS [facility] Last Admin: 01/25/18 08:43 Dose: 100 mg Pantoprazole Sodium (Protonix Ec Tab) 20 mg PO DAILY [facility] Last Admin: 01/25/18 09:36 Dose: 20 mg - Labs Labs: 01/25/18 06:51 01/25/18 06:51 PT 28.6 SECONDS (9.7-12.2) H 01/24/18 14:00 INR 2.6 01/24/18 14:00 APTT 43 SECONDS (21-34) H 01/24/18 14:00 - Constitutional Appears: Well, No Acute Distress - Head Exam Head Exam: ATRAUMATIC - Neck Exam Neck Exam: Full ROM, Normal Inspection - Respiratory Exam Respiratory Exam: NORMAL BREATHING PATTERN - Cardiovascular Exam Additional comments: +DP/PT pulses - Extremities Exam Additional comments: Right knee: +ecchymosis, +joint effusion, thigh hematoma clinically stable, mildly tender compared to knee. Calves soft NT neg homas sensation intact - Neurological Exam Neurological Exam: Alert, Awake Neuro motor strength exam: Right Lower Extremity: 5 - Psychiatric Exam Psychiatric exam: Normal Affect, Normal Mood - Skin Skin Exam: Dry, Intact, Normal Color, Warm Assessment and Plan (1) Closed fracture of medial portion of right tibial plateau Assessment & Plan: non displaced fractures no orthopedic intervention indicated for these fractures, knee immobilizer at all times, NWB RLE, follow up as out patient hematoma to thigh is less symptomatic, hgb stable, clinically stable, no orthopedic intervention indicated for this, monitor INR, follow up as outpt again noted on CT were bony lesions that are possibly consistent with multiple myeloma. Recommend hematology/oncology consultation for work up orthopedically stable for d/c f/u with Dr. Lopez within 2 weeks for fracture mgmt do not remove knee immobilizer VTE proph d/w Dr. Lopez, agrees with above Status: Acute (2) Closed fracture of lateral portion of right tibial plateau Status: Acute (3) Leg hematoma Status: Acute
--- NOTE | 2018-01-25 18:59 | PN ---
DATE: 01/25/2018 SUBJECTIVE: The patient is experiencing shortness of breath. Diarrhea has improved. He denies any chest pain. I did speak to him about his previous and his cardiac workup with Dr. Warren and Dr. Arrington. The patient is unaware of any coronary intervention, but he did have a cardiac catheterization. PHYSICAL EXAMINATION: VITAL SIGNS: Blood pressure 146/90, heart rate 99, temperature 97.7, respirations 18. HEENT: Pale conjunctivae. CHEST: Diminished breath sounds over both bases. HEART: S1 and S2, regular. EXTREMITIES: Swollen tender right thigh. LABORATORY DATA: Today's SMA-7: Sodium 141, potassium 3.9, chloride 109, carbon dioxide 20, glucose 154, BUN 29, creatinine 2.4. Hemoglobin and hematocrit 9.3 and 27.9. White count and platelet count are within normal limits. Chest x-ray was consistent with bilateral congestion, worse on the right side compared to the left side. ASSESSMENT: 1. Status post old right thigh hematoma. 2. Mild coagulopathy. The patient's INR is still elevated, 2.6. 3. Severe pulmonary hypertension. 4. Chronic atrial fibrillation. 5. Chronic renal insufficiency. 6. Anemia. 7. Diarrhea. RECOMMENDATIONS: Continue hydralazine 50 mg every 8 hours, Lopressor 100 mg twice a day, intravenous Zosyn 2.25 g every 6 hours, and Synthroid 25 mcg once a day. We will start Lasix 20 mg intravenously daily, and I recommend vitamin K. Case was discussed with the SWITCH ENGINEER. Hematology/Oncology consult was requested in view of the recent lytic bone findings on the MRI. Jenaro Jung MD
[2018-01-25] MEDS ORDERED: Oxycodone/Acetaminophen 5/325 mg Tab PO PRN (21:57)
--- NOTE | 2018-01-25 22:35 | CP.PCM.PN ---
Subjective - Subjective Subjective: dictated Objective - Vital Signs/Intake and Output Vital Signs (last 24 hours): Temp Pulse Resp BP Pulse Ox 97.7 F 111 H 18 137/86 97 01/25/18 15:00 01/25/18 19:07 01/25/18 15:00 01/25/18 21:32 01/25/18 15:00 Intake and Output: 01/25/18 01/26/18 18:59 06:59 Output Total 600 Balance -600 - Medications Medications: Current Medications Dextrose (Dextrose 50% Inj) 0 ml IV STAT PRN; Protocol PRN Reason: Hypoglycemia Protocol Dextrose (Glutose 15) 0 gm PO ONCE PRN; Protocol PRN Reason: Hypoglycemia Protocol Furosemide (Lasix) 40 mg IVP DAILY [facility] Last Admin: 01/25/18 13:57 Dose: 40 mg Gabapentin (Neurontin) 100 mg PO TID [facility] Last Admin: 01/25/18 17:27 Dose: 100 mg Glucagon (Glucagen Diagnostic Kit) 0 mg IM STAT PRN; Protocol PRN Reason: Hypoglycemia Protocol Hydralazine HCl (Apresoline) 50 mg PO Q8 [facility] Last Admin: 01/25/18 21:32 Dose: 50 mg Piperacillin Sod/Tazobactam (Sod 2.25 gm/ Sodium Chloride) 100 mls @ 200 mls/hr IVPB Q6H [facility]; Protocol Last Admin: 01/25/18 21:29 Dose: 200 mls/hr Insulin Human Regular (Novolin R) 0 unit SC ACHS [facility]; Protocol Last Admin: 01/25/18 21:37 Dose: Not Given Levothyroxine Sodium (Synthroid) 25 mcg PO DAILY@0630 [facility] Last Admin: 01/25/18 06:11 Dose: 25 mcg Metoprolol Tartrate (Lopressor) 5 mg IVP Q4H PRN PRN Reason: Heart rate Last Admin: 01/25/18 04:06 Dose: 5 mg Metoprolol Tartrate (Lopressor) 100 mg PO BIDBS [facility] Last Admin: 01/25/18 16:54 Dose: 100 mg Oxycodone/Acetaminophen (Percocet 5/325 Mg Tab) 1 tab PO Q6H PRN PRN Reason: Pain, moderate (4-7) Stop: 01/28/18 21:58 Pantoprazole Sodium (Protonix Ec Tab) 20 mg PO DAILY [facility] Last Admin: 01/25/18 09:36 Dose: 20 mg - Labs Labs: 01/25/18 06:51 01/25/18 06:51 PT 28.6 SECONDS (9.7-12.2) H 01/24/18 14:00 INR 2.6 01/24/18 14:00 APTT 43 SECONDS (21-34) H 01/24/18 14:00
[2018-01-26] MEDS: Metoprolol 1 mg/ml Inj IVP PRN ×2 (01:13→05:21)
[2018-01-26] MEDS: Piperacillin/Tazobact 2.25 GM in Sodium Chloride 100 ML IVPB SCH ×4 (01:14→20:41)
--- NOTE | 2018-01-26 03:32 | PN ---
DATE: 01/25/2018 SUBJECTIVE: The patient, Nate, is feeling pain in the right leg. The patient was seen by Orthopedics, and cast has been placed on the right leg. The patient needs subacute rehab. PHYSICAL EXAMINATION: VITAL SIGNS: Blood pressure is 142/90, pulse 111, respiratory rate 18, temperature 97.7. LUNGS: Clear. No rales. No rhonchi. CARDIOVASCULAR SYSTEM: S1 and S2 are irregularly irregular. ABDOMEN: Soft and nontender. Bowel sounds are positive. EXTREMITIES: Right leg has a cast, and right leg is swollen. ASSESSMENT: 1. Right leg hematoma bleed from trauma with fracture. 2. Chronic kidney disease. 3. Hypertension. 4. Atrial fibrillation. 5. Coagulopathy due to Coumadin. PLAN: Medical management. Orthopedics evaluation. Monitor the patient. Kevin Osborne MD
[2018-01-26] MEDS: Levothyroxine 25 MCG TAB PO SCH (05:41)
[2018-01-26 06:52] LABS: BASO # 0.1 K/uL (0.0-0.2); BASO % 1.5 % (0.0-2.0); EOS # 0.5 K/uL (0.0-0.7); EOS % 7.6 % (0.0-4.0); HEMOGLOBIN 9.3 g/dL (12.0-18.0); LYMPH # 1.3 K/uL (1.0-4.3); LYMPH % 17.8 % (20.0-40.0); MEAN CORPUSCULAR HEMOGLOBIN 30.8 pg (27.0-31.0); MEAN CORPUSCULAR HGB CONC 32.8 g/dL (33.0-37.0); MEAN PLATELET VOLUME 8.9 fL (7.2-11.7); MONO # 0.7 K/uL (0.0-0.8); MONO % 9.8 % (0.0-10.0); NEUT # 4.5 K/uL (1.8-7.0); NEUT % 63.3 % (50.0-75.0); NRBC % 0.1 % (0.0-2.0); RBC 3.03 Mil/uL (4.40-5.90); RED CELL DISTRIBUTION WIDTH 19.4 % (11.5-14.5); WHITE BLOOD COUNT 7.2 K/uL (4.8-10.8)
[2018-01-26 07:03] LABS: INR 2.1; PROTHROMBIN TIME 23.1 SECONDS (9.7-12.2)
[2018-01-26 07:47] LABS: ALB/GLOB RATIO 0.8 (1.0-2.1); ALBUMIN 3.1 g/dL (3.5-5.0); CALCIUM 8.9 mg/dl (8.6-10.4)
[2018-01-26] MEDS: (Novolin R) Insulin Human Regular 100 units/ml vial SC SCH ×3 (08:27→17:23)
[2018-01-26] MEDS: Pantoprazole 20 mg EC Tab PO SCH (10:30)
--- NOTE | 2018-01-26 10:53 | RAD ---
Chest x-ray single frontal view HISTORY: Follow-up. Comparison: 01/16/2018 Findings: Mild to moderate venous congestion. Bilateral hilar prominence. Enlarged ectatic aorta. Cardiomegaly. Degenerative changes in the spine and shoulders. Several left-sided rib deformities. Impression: Mild to moderate venous congestion. Bilateral hilar prominence. Enlarged ectatic aorta. Cardiomegaly. Degenerative changes in the spine and shoulders. Several left-sided rib deformities.
[2018-01-26] MEDS ORDERED: Phytonadione 10 mg/ml Inj (Adult) SC STA (12:55)
--- NOTE | 2018-01-26 16:33 | CP.PCM.PN ---
Subjective - Date & Time of Evaluation Date of Evaluation: 01/26/18 Time of Evaluation: 14:00 - Subjective Subjective: Patient seen today , awake, alert, NAD, denies any chest pain, sob, dizziness abdominal pain, c/o pain to marisel R thigh on palpation and R knee a febrile hgb stable - 9.3x 4 days Objective - Vital Signs/Intake and Output Vital Signs (last 24 hours): Temp Pulse Resp BP Pulse Ox 97.4 F L 108 H 18 132/83 96 01/26/18 07:15 01/26/18 07:15 01/26/18 07:15 01/26/18 10:30 01/26/18 07:15 Intake and Output: 01/26/18 01/26/18 06:59 18:59 Intake Total 470 600 Output Total 950 350 Balance -480 250 - Medications Medications: Current Medications Dextrose (Dextrose 50% Inj) 0 ml IV STAT PRN; Protocol PRN Reason: Hypoglycemia Protocol Dextrose (Glutose 15) 0 gm PO ONCE PRN; Protocol PRN Reason: Hypoglycemia Protocol Furosemide (Lasix) 40 mg IVP DAILY [facility] Last Admin: 01/26/18 10:30 Dose: 40 mg Gabapentin (Neurontin) 100 mg PO TID [facility] Last Admin: 01/26/18 14:33 Dose: 100 mg Glucagon (Glucagen Diagnostic Kit) 0 mg IM STAT PRN; Protocol PRN Reason: Hypoglycemia Protocol Hydralazine HCl (Apresoline) 50 mg PO Q8 [facility] Last Admin: 01/26/18 14:33 Dose: 50 mg Piperacillin Sod/Tazobactam (Sod 2.25 gm/ Sodium Chloride) 100 mls @ 200 mls/hr IVPB Q6H [facility]; Protocol Last Admin: 01/26/18 14:33 Dose: 200 mls/hr Insulin Human Regular (Novolin R) 0 unit SC ACHS [facility]; Protocol Last Admin: 01/26/18 13:03 Dose: 3 unit Levothyroxine Sodium (Synthroid) 25 mcg PO DAILY@0630 [facility] Last Admin: 01/26/18 05:41 Dose: 25 mcg Metoprolol Tartrate (Lopressor) 5 mg IVP Q4H PRN PRN Reason: Heart rate Last Admin: 01/26/18 05:21 Dose: 5 mg Metoprolol Tartrate (Lopressor) 100 mg PO BIDBS [facility] Last Admin: 01/26/18 07:09 Dose: 100 mg Oxycodone/Acetaminophen (Percocet 5/325 Mg Tab) 1 tab PO Q6H PRN PRN Reason: Pain, moderate (4-7) Stop: 01/28/18 21:58 Last Admin: 01/26/18 02:53 Dose: 1 tab Pantoprazole Sodium (Protonix Ec Tab) 20 mg PO DAILY [facility] Last Admin: 01/26/18 10:30 Dose: 20 mg - Labs Labs: 01/26/18 06:44 01/26/18 06:44 PT 23.1 SECONDS (9.7-12.2) H D 01/26/18 06:44 INR 2.1 D 01/26/18 06:44 APTT 43 SECONDS (21-34) H 01/24/18 14:00 - Constitutional Appears: Well, Non-toxic, No Acute Distress - Respiratory Exam Respiratory Exam: Rhonchi, NORMAL BREATHING PATTERN - Neurological Exam Neurological Exam: Alert, Awake, Oriented x3 Assessment and Plan - Assessment and Plan (Free Text) Assessment: A/P 77 year old male with PMHx of atrial fibrillation on warfarin, HTN, CAD, DM-2, hypothyroidism, and HLD R thigh hematoma and coagulopathy s/p PRBC and FFP transfusion hgb - stable - 9.[address] Lopez consulted to R thigh hematoma and found to have fx of tibia non dosplaced fx , knee immobolized placed D/w Roni CARMONA , cleared from ortho standpoint for discharge to REHAB and f/u with his office in [address] Avila consulted for questionable lytic lesions and work up ordered and cleared for discharger from HEM/ONC/ standpoint and f/u with his office in 1 week D/w Dr. Jung regarding coumadin hold off now D/W Dr. Osborne cleared for discharge patient to [facility] and Dr. Osborne will follow the patient at [facility] D/w patient and family skeletal survey done and result Pending
--- NOTE | 2018-01-26 17:04 | RAD ---
PROCEDURE: HISTORY: Multiple myeloma COMPARISON: None TECHNIQUE: AP and lateral cervical spine ; 2 frontal and 1 lateral skull view ; 2 frontal and 1 lateral view thoracic spine ; 1 frontal and 1 lateral lumbar spine ; one frontal pelvis ; 2 frontal views of the right femur and 2 frontal views of the left femur ; single frontal right humerus and single frontal left humerus views FINDINGS: Lytic lesions: No gross appreciate Alignment:Grossly intact Mineralization: Grossly abnormal-diffusely osteopenic Joints: Arthro pathic changes entire cervical thoracic and lumbar spine hips shoulders and elbows Degenerative disc disease throughout the entire spine Other findings: Left ureteral stent mottled density almost stool-like projecting over the left inferior pubic ring-position is somewhat low-possibility of a hernia here cannot be excluded. Clinical follow-up recommended IMPRESSION: No gross radiographic evidence of multiple myeloma. Other findings as above
[2018-01-26 17:14] VITALS: RESP 20; TEMP 97.7; O2SAT 98
[2018-01-26 17:42] VITALS: BP 124/84
[2018-01-26] MEDS ORDERED: Influenza Vaccine 60 MCG/0.5 ML SYR (3 yr & up) IM ONE (17:55)
--- NOTE | 2018-01-26 17:58 | PN ---
DATE: 01/26/2018 SUBJECTIVE: The patient's shortness of breath slightly improved. He is having runs of AFib, apparently he denies any chest pain. PHYSICAL EXAMINATION: VITAL SIGNS: Blood pressure 136/87, heart rate 108, temperature 97.4, respirations 18. HEENT: Pale conjunctivae. CHEST: Bilateral rhonchi. HEART: S1 and S2 regular. EXTREMITIES: Right thigh swelling with tenderness. LABORATORY DATA: Today's hemoglobin and hematocrit 9.3 and 28.5, white count and platelet count are within normal limits. Today's BUN and creatinine are 28 and 2.3 respectively, glucose is 167, magnesium is within normal limit at 1.8. Today's INR is 2.1. Chest x-ray revealed mild congestion. The official report is [id number] venous congestion with bilateral hilar prominence, enlarged ectatic aorta. The patient responded to adequately to intravenous Lasix. ASSESSMENT: 1. Chronic atrial fibrillation. 2. Right thigh hematoma. 3. Coagulopathy. 4. Chronic insufficiency. 5. Uncontrolled diabetes mellitus. 6. Questionable bony lytic lesions. RECOMMENDATIONS: I did administer vitamin K 10 mg subcutaneously as a single dose. The patient received Lasix 40 mg intravenously this morning and will be maintained on a daily dose. Continue Lopressor 100 mg twice a day. Add Zosyn at 2.25 g intravenously every 6 hours, Synthroid 25 mcg once a day. The patient will be evaluated by special services director hopefully today. Jenaro Jung MD
[2018-01-26 18:55] VITALS: PULSE 106
[2018-01-26 19:10] LABS: FERRITIN 94.9 ng/mL
[2018-01-26 19:40] LABS: FOLATE 5.1 ng/mL
--- NOTE | 2018-01-26 22:20 | CP.PCM.CON ---
History of Present Illness - History of Present Illness History of Present Illness: 77 year old male with a history of HTN, DM, hypothyroid, HL, afib on coumadin, presenting with leg pain s/p fall, found to have a hematoma and right knee lytic lesions. The patient notes to falling while going to the bathroom. He began to have worsening pain and swelling in his right leg and came to the hospital. In the ER he was found to have a right thigh hematoma and lytic lesions involving the right knee by CT. Past medical history: HTN, DM, hypothyroid, HL, afib on coumadin Past surgical history: Denies Family history: Denies hematologic and oncologic problems Social history: Denies tobacco, alcohol, and illicit drug use. Allergies: NKA Review of systems: All remaining review of systems including HEENT, car diovascular, respiratory, gastrointestinal, genitourinary, musculoskeletal, dermatologic, neurologic, and psychiatric are negative unless mentioned in the HPI. Past Patient History - Infectious Disease Hx of Infectious Diseases: None - Past Medical History & Family History Past Medical History?: Yes Past Family History: Reviewed and not pertinent - Past Social History Smoking Status: Never Smoked - CARDIAC Hx Atrial Fibrillation: Yes Hx Congestive Heart Failure: No Hx Hypercholesterolemia: Yes Hx Hypertension: Yes - PULMONARY Hx Chronic Obstructive Pulmonary Disease (COPD): No - NEUROLOGICAL Hx Neurological Disorder: No - HEENT Hx HEENT Problems: No - RENAL Hx Chronic Kidney Disease: No - ENDOCRINE/METABOLIC Hx Hypothyroidism: No - HEMATOLOGICAL/ONCOLOGICAL Hx Human Immunodeficiency Virus (HIV): No - INTEGUMENTARY Hx Dermatological Problems: No - MUSCULOSKELETAL/RHEUMATOLOGICAL Hx Arthritis: No Hx Rheumatoid Arthritis: No - GASTROINTESTINAL Hx Gastrointestinal Disorders: No - GENITOURINARY/GYNECOLOGICAL Hx Genitourinary Disorders: No - PSYCHIATRIC Hx Substance Use: No - SURGICAL HISTORY Hx Coronary Stent: Yes - ANESTHESIA Hx Anesthesia: Yes Hx Anesthesia Reactions: No Hx Malignant Hyperthermia: No Meds Home Medications: Home Medication List Medication Instructions Recorded Confirmed Type Furosemide [Lasix] 40 mg PO DAILY #30 tablet 01/26/18 Rx Gabapentin [Neurontin] 100 mg PO TID cap 01/26/18 Rx Insulin Human Regular [Novolin R] 0 unit SC ACHS unit 01/26/18 Rx Levothyroxine [Synthroid] 25 mcg PO DAILY@0630 tab 01/26/18 Rx Metoprolol Tartrate [Lopressor] 100 mg PO BIDBS tab 01/26/18 Rx Pantoprazole [Protonix EC Tab] 20 mg PO DAILY ect 01/26/18 Rx hydrALAZINE [Apresoline] 50 mg PO Q8 tab 01/26/18 Rx oxyCODONE/Acetaminophen [Percocet 1 tab PO Q6H PRN #2 tab 01/26/18 Rx 5/325 mg Tab] Allergies/Adverse Reactions: Allergies Allergy/AdvReac Type Severity Reaction Status Date / Time No Known Allergies Allergy Verified 01/16/18 06:18 Physical Exam - Head Exam Head Exam: ATRAUMATIC - Eye Exam Eye Exam: Normal appearance - ENT Exam ENT Exam: Mucous Membranes Dry - Respiratory Exam Respiratory Exam: NORMAL BREATHING PATTERN - Cardiovascular Exam Cardiovascular Exam: +S1, +S2 - GI/Abdominal Exam GI & Abdominal Exam: Normal Bowel Sounds - Extremities Exam Extremities exam: Positive for: pedal edema - Neurological Exam Neurological exam: Oriented x3 - Psychiatric Exam Psychiatric exam: Normal Affect, Normal Mood - Skin Skin Exam: Warm Results - Vital Signs Recent Vital Signs: Last Vital Signs Temp 97.7 F 01/26/18 15:00 Pulse 106 H 01/26/18 18:00 Resp 20 01/26/18 15:00 BP 124/84 01/26/18 17:40 Pulse Ox 98 01/26/18 15:00 - Labs Result Diagrams: 01/26/18 06:44 01/26/18 06:44 Labs: Laboratory Results - last 24 hr 01/26/18 01/26/18 01/26/18 06:20 06:44 06:44 WBC 7.2 RBC 3.03 L Hgb 9.3 L Hct 28.5 L MCV 94.0 MCH 30.8 MCHC 32.8 L RDW 19.4 H Plt Count 257 MPV 8.9 Neut % (Auto) 63.3 Lymph % (Auto) 17.8 L [place] % (Auto) 9.8 Eos % (Auto) 7.6 H Baso % (Auto) 1.5 Neut # (Auto) 4.5 Lymph # (Auto) 1.3 [place] # (Auto) 0.7 Eos # (Auto) 0.5 Baso # (Auto) 0.1 Retic Count PT INR Sodium 140 Potassium 3.9 Chloride 110 H Carbon Dioxide 21 L Anion Gap 13 BUN 28 H Creatinine 2.3 H Est GFR ( Amer) 34 Est GFR (Non-Af Amer) 28 POC Glucose (mg/dL) 158 H Random Glucose 167 H Calcium 8.9 Phosphorus 3.8 Magnesium 1.8 Ferritin Total Bilirubin 1.4 H AST 16 L D ALT 15 L Alkaline Phosphatase 88 Total Protein 6.8 Albumin 3.1 L Globulin 3.7 Albumin/Globulin Ratio 0.8 L Prostate Specific Ag Vitamin B12 Folate 01/26/18 01/26/18 01/26/18 06:44 11:22 17:06 WBC RBC Hgb Hct MCV MCH MCHC RDW Plt Count MPV Neut % (Auto) Lymph % (Auto) [place] % (Auto) Eos % (Auto) Baso % (Auto) Neut # (Auto) Lymph # (Auto) [place] # (Auto) Eos # (Auto) Baso # (Auto) Retic Count PT 23.1 H D INR 2.1 D Sodium Potassium Chloride Carbon Dioxide Anion Gap BUN Creatinine Est GFR ( Amer) Est GFR (Non-Af Amer) POC Glucose (mg/dL) 202 H 183 H Random Glucose Calcium Phosphorus Magnesium Ferritin Total Bilirubin AST ALT Alkaline Phosphatase Total Protein Albumin Globulin Albumin/Globulin Ratio Prostate Specific Ag Vitamin B12 Folate 01/26/18 01/26/18 17:18 17:18 WBC RBC Hgb Hct MCV MCH MCHC RDW Plt Count MPV Neut % (Auto) Lymph % (Auto) [place] % (Auto) Eos % (Auto) Baso % (Auto) Neut # (Auto) Lymph # (Auto) [place] # (Auto) Eos # (Auto) Baso # (Auto) Retic Count 2.9 H PT INR Sodium Potassium Chloride Carbon Dioxide Anion Gap BUN Creatinine Est GFR ( Amer) Est GFR (Non-Af Amer) POC Glucose (mg/dL) Random Glucose Calcium Phosphorus Magnesium Ferritin 94.9 Total Bilirubin AST ALT Alkaline Phosphatase Total Protein Albumin Globulin Albumin/Globulin Ratio Prostate Specific Ag 11.4 H Vitamin B12 252 Folate 5.1 Assessment & Plan (1) Lytic bone lesions on xray Assessment and Plan: rule out multiple myeloma skeletal survey monoclonal protein w/u outpatient f/u of results Status: Acute (2) Anemia Assessment and Plan: retic count, b12, folate, ferritin, monoclonal protein w/u Thank you for this interesting consult. Status: Acute
--- NOTE | 2018-01-27 01:04 | CP.PCM.DIS ---
Provider - Provider Date of Admission: 01/16/18 13:58 Attending physician: Kevin Osborne MD Consults: 01/23/18 12:53 Physician Consult Routine Comment: Consulting Provider: Perez Lopez Consulting Physician: Perez Lopez Reason for Consult: hematoma R thigh after fall 01/23/18 12:56 Cardiology Consult Routine Comment: Consulting Provider: Jenaro Jung Consulting Physician: Jenaro Jung Reason for Consult: a fib on coumadin now with hematoma 01/25/18 14:45 Hematology Oncology Consult Routine Comment: Consulting Provider: Anant Avila Consulting Physician: Anant Avila Reason for Consult: CYTIC LESIONS ON CT / Hospital Course - Lab Results Lab Results: Micro Results 01/22/18 06:32 Naris MRSA Culture - Final MRSA NOT DETECTED 01/16/18 22:32 Penis Gram Stain - Final 01/16/18 22:32 Penis Wound Culture - Final Coagulase Neg Staphylococcus Most Recent Lab Values WBC 7.2 K/uL (4.8-10.8) 01/26/18 06:44 RBC 3.03 Mil/uL (4.40-5.90) L 01/26/18 06:44 Hgb 9.3 g/dL (12.0-18.0) L 01/26/18 06:44 Hct 28.5 % (35.0-51.0) L 01/26/18 06:44 MCV 94.0 fL (80.0-94.0) 01/26/18 06:44 MCH 30.8 pg (27.0-31.0) 01/26/18 06:44 MCHC 32.8 g/dL (33.0-37.0) L 01/26/18 06:44 RDW 19.4 % (11.5-14.5) H 01/26/18 06:44 Plt Count 257 K/uL (130-400) 01/26/18 06:44 MPV 8.9 fL (7.2-11.7) 01/26/18 06:44 Neut % (Auto) 63.3 % (50.0-75.0) 01/26/18 06:44 Lymph % (Auto) 17.8 % (20.0-40.0) L 01/26/18 06:44 [place] % (Auto) 9.8 % (0.0-10.0) 01/26/18 06:44 Eos % (Auto) 7.6 % (0.0-4.0) H 01/26/18 06:44 Baso % (Auto) 1.5 % (0.0-2.0) 01/26/18 06:44 Neut # (Auto) 4.5 K/uL (1.8-7.0) 01/26/18 06:44 Lymph # (Auto) 1.3 K/uL (1.0-4.3) 01/26/18 06:44 [place] # (Auto) 0.7 K/uL (0.0-0.8) 01/26/18 06:44 Eos # (Auto) 0.5 K/uL (0.0-0.7) 01/26/18 06:44 Baso # (Auto) 0.1 K/uL (0.0-0.2) 01/26/18 06:44 Neutrophils % (Manual) 78 % (50-75) H 01/20/18 06:23 Band Neutrophils % 1 % (0-2) 01/17/18 06:32 Lymphocytes % (Manual) 11 % (20-40) L 01/20/18 06:23 Monocytes % (Manual) 7 % (0-10) 01/20/18 06:23 Eosinophils % (Manual) 3 % (0-4) 01/20/18 06:23 Basophils % (Manual) 1 % (0-2) 01/19/18 06:15 Myelocytes % 1 % (0-0) H 01/20/18 06:23 Toxic Granulation Present 01/19/18 06:15 Platelet Estimate Normal (NORMAL) 01/20/18 06:23 Large Platelets Present 01/19/18 06:15 Giant Platelets Present 01/19/18 06:15 Polychromasia Slight 01/20/18 06:23 Hypochromasia (manual) Slight 01/20/18 06:23 Poikilocytosis (manual Slight 01/19/18 06:15 Anisocytosis (manual) Slight 01/20/18 06:23 Ovalocytes Slight 01/19/18 06:15 Retic Count 2.9 % (0.5-1.5) H 01/26/18 17:18 PT 23.1 SECONDS (9.7-12.2) H D 01/26/18 06:44 INR 2.1 D 01/26/18 06:44 APTT 43 SECONDS (21-34) H 01/24/18 14:00 Sodium 140 mmol/L (132-148) 01/26/18 06:44 Potassium 3.9 mmol/L (3.6-5.2) 01/26/18 06:44 Chloride 110 mmol/L (98-107) H 01/26/18 06:44 Carbon Dioxide 21 mmol/L (22-30) L 01/26/18 06:44 Anion Gap 13 (10-20) 01/26/18 06:44 BUN 28 mg/dL (9-20) H 01/26/18 06:44 Creatinine 2.3 mg/dL (0.8-1.5) H 01/26/18 06:44 Est GFR ( Amer) 34 01/26/18 06:44 Est GFR (Non-Af Amer) 28 01/26/18 06:44 POC Glucose (mg/dL) 183 mg/dL (65-110) H 01/26/18 17:06 Random Glucose 167 mg/dL (75-110) H 01/26/18 06:44 Calcium 8.9 mg/dl (8.6-10.4) 01/26/18 06:44 Phosphorus 3.8 mg/dL (2.5-4.5) 01/26/18 06:44 Magnesium 1.8 mg/dL (1.6-2.3) 01/26/18 06:44 Ferritin 94.9 ng/mL 01/26/18 17:18 Total Bilirubin 1.4 mg/dL (0.2-1.3) H 01/26/18 06:44 AST 16 U/L (17-59) L D 01/26/18 06:44 ALT 15 U/L (21-72) L 01/26/18 06:44 Alkaline Phosphatase 88 U/L (38-126) 01/26/18 06:44 Total Creatine Kinase 74 U/L (55-170) 01/16/18 23:14 CK-MB (Mass) 1.42 ng/mL (0.0-3.38) 01/16/18 23:14 Troponin I 0.0940 ng/mL (0.00-0.120) 01/16/18 23:14 NT-Pro-B Natriuret Pep 7550 pg/mL (0-900) H 01/16/18 07:07 Total Protein 6.8 g/dL (6.3-8.3) 01/26/18 06:44 Albumin 3.1 g/dL (3.5-5.0) L 01/26/18 06:44 Globulin 3.7 gm/dL (2.2-3.9) 01/26/18 06:44 Albumin/Globulin Ratio 0.8 (1.0-2.1) L 01/26/18 06:44 Prostate Specific Ag 11.4 ng/mL (0.00-4.0) H 01/26/18 17:18 Vitamin B12 252 pg/mL (239-931) 01/26/18 17:18 Folate 5.1 ng/mL 01/26/18 17:18 Urine Color Yellow (YELLOW) 01/16/18 15:25 Urine Clarity Clear (Clear) 01/16/18 15:25 Urine pH 7.0 (5.0-8.0) 01/16/18 15:25 Ur Specific [place] 1.011 (1.003-1.030) 01/16/18 15:25 Urine Protein 2+ mg/dL (NEGATIVE) H 01/16/18 15:25 Urine Glucose (UA) 1+ mg/dL (Normal) H 01/16/18 15:25 Urine Ketones Trace mg/dL (NEGATIVE) 01/16/18 15:25 Urine Blood 3+ (NEGATIVE) H 01/16/18 15:25 Urine Nitrate Negative (NEGATIVE) 01/16/18 15:25 Urine Bilirubin Negative (NEGATIVE) 01/16/18 15:25 Urine Urobilinogen 4.0 mg/dL (0.2-1.0) 01/16/18 15:25 Ur Leukocyte Esterase 3+ Shayy/uL (Negative) H 01/16/18 15:25 Urine WBC (Auto) 24 /hpf (0-5) H 01/16/18 15:25 Urine RBC (Auto) 56 /hpf (0-3) H 01/16/18 15:25 Ur Squamous Epith Cells < 1 /hpf (0-5) 01/16/18 15:25 Stool Occult Blood Negative (NEGATIVE) 01/16/18 07:47 Random Vancomycin 21.2 ug/mL 01/22/18 07:53 C. difficile Ag & Toxin Negative (NEGATIVE) 01/21/18 07:54 Blood Type A POSITIVE 01/16/18 07:31 Antibody Screen Negative 01/16/18 07:31 Discharge Exam - Head Exam Head Exam: ATRAUMATIC Discharge Plan - Discharge Medications Prescriptions: Furosemide [Lasix] 40 mg PO DAILY #30 tablet - Follow Up Plan Condition: CRITICAL Disposition: HOME/ ROUTINE Instructions: Tibia Fracture, Acute Kidney Failure (DC), Normocytic Normochromic Anemia (DC) Additional Instructions: PLEASE ADMIT PATIENT UNDER DR. OSBORNE SERVICE- CALL DR. OSBORNE UPON PATIENT ARRIVAL TO THE FACILITY PLEASE CALL AND MAKE APPOINTMEN TFOR DR. AVILA IN 1 WEEK AND ARRANGE TRANSPORTATION FOR F/U VISIT - PLEASE CALL DR. LOPEZ (ORTHO) OFFICE AND MAKE APPOINTMENT AND ARRANGE TRANSPORTATION IN 10 DAYS F/U VISIT FOR FX OF FEMUR AND HEMATOMA PLEASE CALL AND MAKE APPOINTMENT WITH DR. BHAT - UROLOGIST - F/U STENT AND OSMAN CATH REMOVAL PLEASE KEEP THE KNEE BRACE TO THE R KNEE UNTIL INSTRUCTED BY [employer] GARRETT TO REMOVE CBC, BMP, PT/INR Q 3DAYS CHANGE OSMAN CATH. PER HOSPITAL POLICY DR. BHAT - [phone] [facility]. [facility]- ANANT AVILA- [phone] Referrals: Anant Avila MD [Staff Provider] - Jenaro Jung MD [Staff Provider] - Perez Lopez MD [Staff Provider] - Kevin Osborne MD [Staff Provider] -
[2018-01-27 11:45] LABS: ALBUMIN (PEP) 2.9 g/dL (3.8-4.8); ALPHA-1-GLOBULIN (PEP) 0.5 g/dL (0.2-0.3)
--- NOTE | 2018-01-27 12:25 | DS ---
ADMISSION DIAGNOSIS: Weakness. DISCHARGE DIAGNOSIS: Hematoma and bleeding to the right leg, fracture of right tibial plateau, atrial fibrillation, hypertension, congestive heart failure, and obstructive neuropathy. HISTORY OF PRESENT ILLNESS: This is a 77-year-old male with history of hypertension; hyperlipidemia; congestive heart failure; atrial fibrillation, on blood thinners and he had an injury to his right leg and subsequently he developed pain and swelling of the right leg and he had a large hematoma. The patient bled in his right thigh. He continued to bleed before hospitalization. Later on during hospitalization, the swelling increased. His coagulopathy was partially corrected. Bleeding stopped and now the patient is stable. He has a cast on his right knee for fracture of tibial plateau. There is a question of ____ tibial plateau. The patient feels better. He has obstructive uropathy. He has Lord. He denies any shortness of breath. Now he is feeling better. PHYSICAL EXAMINATION: VITAL SIGNS: Blood pressure 124/84, pulse 106, respiratory rate 20, temperature 97.7. LUNGS: Clear. CVS: S1, S2. Irregularly irregular. ABDOMEN: Soft. EXTREMITIES: Right leg has swelling. PLAN: Discharge the patient to subacute rehab, physical therapy, pain medications and follow up by me. Kevin Osborne MD
== END 2018-01-26 21:07 | disposition home or self-care (01) | DRG 813 ==
LOC: C.ER 06:02 → C.9E 13:58 → C.9I 14:49 → C.6T 01-22 00:32
PROVIDERS: ADMIT Internal Medicine; ATTEND Internal Medicine
PROC: 30233N1 Transfusion of Nonautologous Red Blood Cells into Peripheral Vein, Percutaneous Approach (ICD-10-PCS; principal; 2018-01-16)
PROC: 30233K1 Transfusion of Nonautologous Frozen Plasma into Peripheral Vein, Percutaneous Approach (ICD-10-PCS; 2018-01-16)
DX: D68.32 Hemorrhagic disorder due to extrinsic circulating anticoagulants (principal); N17.0 Acute kidney failure with tubular necrosis; S82.144A Nondisplaced bicondylar fracture of right tibia, initial encounter for closed fracture; N39.0 Urinary tract infection, site not specified; D62 Acute posthemorrhagic anemia; D68.8 Other specified coagulation defects; M89.9 Disorder of bone, unspecified; S80.11XA Contusion of right lower leg, initial encounter; I48.2 Chronic atrial fibrillation; W19.XXXA Unspecified fall, initial encounter; I10 Essential (primary) hypertension; I25.10 Atherosclerotic heart disease of native coronary artery without angina pectoris; E78.5 Hyperlipidemia, unspecified; D64.9 Anemia, unspecified; E03.9 Hypothyroidism, unspecified; Z95.5 Presence of coronary angioplasty implant and graft; W18.30XA Fall on same level, unspecified, initial encounter; Z91.81 History of falling; S70.11XA Contusion of right thigh, initial encounter; I27.20 Pulmonary hypertension, unspecified; M25.461 Effusion, right knee; E11.65 Type 2 diabetes mellitus with hyperglycemia; I87.2 Venous insufficiency (chronic) (peripheral); E11.22 Type 2 diabetes mellitus with diabetic chronic kidney disease; I12.9 Hypertensive chronic kidney disease with stage 1 through stage 4 chronic kidney disease, or unspecified chronic kidney disease; N18.9 Chronic kidney disease, unspecified; R58 Hemorrhage, not elsewhere classified; T45.515A Adverse effect of anticoagulants, initial encounter

== ENCOUNTER 2018-01-30 00:43 | Emergency (ER) | payer MEDICARE, OTHER ==
--- NOTE | 2018-01-30 00:48 | C.PDOC ---
History Of Present Illness 77 year old male is brought to the ED by [facility] for evaluation. As per Jail at 23:00 today during senior care staff shift change patient was found to have left sided hemiplegia and slurred speech. Unknown actu al start time of symptoms. Unable to obtain further history from patient due to clinical state. As per records patient has PMHx of Afib currently on warfarin. Patient had a recent admission on 01/16/18, patient had right leg hematoma s/p fall. Time Seen by Provider: 01/30/18 00:48 History Per: EMS, Other (nh) History/Exam Limitations: clinical condition Onset/Duration Of Symptoms: Unknown Current Symptoms Are (Timing): Still Present Severity: Severe Pain Scale Rating Of: 8 Reports Recently: Seen In ED, Treated By A Physician, Hospitalized (01/16/18) Recent travel outside of the [place]: No Additional History Per: EMS, Jail, Prior Records Past Medical History Reviewed: Historical Data, Nursing Documentation, Vital Signs - Medical History PMH: Atrial Fibrillation, CAD, Diabetes, HTN, Hypercholesterolemia Denies: Arthritis, CHF, COPD, HIV, Hypothyroidism, Chronic Kidney Disease, Rheumatoid Arthritis Surgical History: Coronary Stent - [facility] Procedures CONTROL BLEEDING IN GENITOURINARY TRACT, ENDO (11/29/16) DILATION OF LEFT URETER WITH INTRALUMINAL DEVICE, ENDO (11/29/16) FLUOROSCOPY KIDNEY, URETER, BLADDER, L W L OSM CONTRAST (11/29/16) TRANSFUSE NONAUT FROZEN PLASMA IN PERIPH VEIN, PERC (01/16/18) TRANSFUSE NONAUT RED BLOOD CELLS IN PERIPH VEIN, PERC (01/16/18) Family History: States: No Known Family Hx - Social History Hx Alcohol Use: No Hx Substance Use: No - Immunization History Hx Tetanus Toxoid Vaccination: No Hx Influenza Vaccination: No Hx Pneumococcal Vaccination: No Review Of Systems Review Of Systems: ROS cannot be obtained secondary to pt's inabilty to answer questions. Physical Exam - Physical Exam Appears: Non-toxic, In Acute Distress Skin: Warm, Dry Head: Normacephalic Eye(s): bilateral: Normal Inspection Oral Mucosa: Moist Neck: Supple Chest: Symmetrical Cardiovascular: Rhythm Irregular (irregularly irregualr) Respiratory: No Rales, Rhonchi (scattered), No Wheezing Gastrointestinal/Abdominal: Soft, No Tenderness, No Guarding, No Rebound Back: Normal Inspection Male Genital: Other (indwelling paulson) Extremity: Other (moves right leg) Extremity: Bilateral: Atraumatic, Normal Color And Temperature Pulses: Left Dorsalis Pedis: Normal, Right Dorsalis Pedis: Normal Neurological/Psych: No Normal Speech (slurred speech), Slow To Respond With Command, Other (left sided hemiplegia) Gait: Unable To Assess Extremity: Left: No Effort Against [place], Upper: No Effort Against [place], Lower: No Effort Against [place] ED Course And Treatment - Laboratory Results Result Diagrams: 01/30/18 01:35 01/30/18 01:35 ECG: Interpreted By Me, Viewed By Me ECG Rhythm: Nonspecific Changes (lad) O2 Sat by Pulse Oximetry: 93 Pulse Ox Interpretation: Normal - Radiology CXR: Interpreted by Me, Viewed By Me - CT Scan/US CT head Other Rad Studies (CT/US): Read By Radiologist, Radiology Report Reviewed CT/US Interpretation: CT scan of the head. CLINICAL HISTORY: Stroke. TECHNIQUE: Multiple axial CT images were obtained through the brain without IV contrast material. COMMENTS: There is normal configuration of sella turcica. There are no intra or extra-axial collections. There is no mass effect or midline shift. There is no evidence of hematoma formation. No hydrocephalus is present. The ventricles are symmetrical. No abnormal calcifications are present. There is diffuse age-appropriate cerebellar and cerebral atrophy with proportionally dilated ventricles and cortical sulci. There are bilateral periventricular and subcortical white matter hypolucencies compatible with mild chronic microvascular disease. Otherwise, no significant focal abnormalities are seen either in the posterior fossa or supratentorial compartment. Bilateral mastoid effusions are noted. IMPRESSION: 1. Age-appropriate cerebellar and cerebral atrophy. 2. Mild chronic microvascular disease. 3. No evidence of acute intracranial pathology. Thank you for your kind referral of this patient. . Electronically signed on Jan 30, 2018 2:00:03 AM EST by: Tanya Dodd M.D., Certified by ABR, MSK, Neuroradiology CTA head/neck Other Rad Studies (CT/US): Read By Radiologist, Radiology Report Reviewed CT/US Interpretation: CT angiography of the head. Indication: Stroke. Technique: Axial CT angiographic images. Reformatted coronal and sagittal images. 3-D post processing.Degree stenosis is based upon NASCET II criteria. Findings: Normal bilateral petrous carotid arteries. Calcified atheromatous plaques of the right cavernous carotid artery with a normal supraclinoid bifurcation. Calcified atheromatous plaques are left cavernous carotid artery with a normal supraclinoid bifurcation. Normal right A1 segments of the anterior cerebral artery. Normal left A1 segments of the anterior cerebral artery. Normal intact anterior communicating artery (ACOM). Normal bilateral A2 segments of the anterior cerebral arteries. Normal right M1 and M2 segments of the middle cerebral arteries, with a normal M1 bifurcation. Normal left M1 and M2 segments of the middle cerebral arteries, with a normal M1 bifurcation. Normal right posterior communicating artery (PCOM). Normal left posterior communicating artery (PCOM). . Normal bilateral vertebral arteries. Normal basilar artery with a normal basilar bifurcation. The visualized bilateral superior cerebellar (SCA) arteries are normal. Normal bilateral P1, P2 and visualized P3 segments of the posterior cerebral arteries. There is no demonstrated aneurysm of the [place] of [place]. IMPRESSION: Atherosclerosis. CT angiography of the neck vessels. Indication: Stroke. Technique: Axial CT radiographic images. Reformatted coronal and sagittal images. 3-D post processing. Degree stenosis is based upon NASCET II criteria. RIGHT CAROTID ARTERIES: 40% stenosis of the distal right common carotid artery (CCA). 40% stenosis of the right common carotid bulb. 40% stenosis of the origin of the right internal carotid (ICA) artery without a hemodynamically significant stenosis. Normal visualized cervical portion of the right internal carotid ar lara. Normal origin of the right external carotid artery (ECA). LEFT CAROTID ARTERIES: 30% stenosis of the distal left common carotid artery (CCA). 30% stenosis of the left common carotid bulb. 30% stenosis of the origin of the left internal carotid (ICA) artery without a hemodynamically significant stenosis. Normal visualized cervical portion of the left internal carotid artery. Normal origin of the left external carotid artery (ECA). VERTEBRAL ARTERIES: Normal bilateral vertebral artery without a hemodynamically significant stenosis. IMPRESSION: Atherosclerosis without high-grade stenosis. . Electronically signed on Jan 30, 2018 2:06:16 AM EST by: Tanya Dodd M.D., Certified by ABR, MSK, Neuroradiology Progress Note: Plan: - Labs. - CT head. - EKG. - Labs. - CXR. - IV fluids. 00:56 - Spoke with Dr. Guidry neurology professional tutor regarding code stroke. spokewith dr guidry give asa and nss @ 100cc/hr. Spoke with dr alcantar who accepted the pt duglas olsen at [facility] for embolectomy. spoke with dr sami howe ed attending at [facility] and is aware of the transfer and accepted. spoke with the pt's and is aware of his clinical condition and transfer Critical Care Time - Critical Care Note Total Time (in mins): 50 Documented critical care: time excludes all time spent performing seperately billable procedures. NIHSS Stroke Scale - Date/Time Evaluation Performed Date Performed: 01/30/18 Time Performed: 00:49 When Was NIHSS Performed: Baseline - How Severe is the Stroke Level of Consciousness: 0=Alert LOC to Questions: 1=One correct LOC to commands: 0=Obeys both correctly Best Gaze: 0=Normal Visual: 0=No visual loss Facial: 1=Minor asymmetry Motor Arm - Left: 3=No effort against gravity (falls immediately) Motor Arm - Right: 0=No drift Motor Leg - Left: 3=No effort against gravity (falls immediately) Motor Leg - Right: 0=No drift Limb Ataxia: 0=Absent Sensory: 0=Normal Best Language: 0=No aphasia Dysarthia: 1=Mild to moderate slurring Extinction & Inattention (Neglect): 0=Normal, no object Score: 9 Disposition Counseled Patient/Family Regarding: Studies Performed, Diagnosis - Disposition Disposition: Trans to Other Acute Care Hosp Disposition Time: 00:48 Condition: CRITICAL - Clinical Impression Clinical Impression: Acute CVA (cerebrovascular accident) - Scribe Statement The provider has reviewed the documentation as recorded by the Scribe Sam Madera All medical record entries made by the Scribe were at my direction and personally dictated by me. I have reviewed the chart and agree that the record accurately reflects my personal performance of the history, physical exam, medical decision making, and the department course for this patient. I have also personally directed, reviewed, and agree with the discharge instructions and disposition.
[2018-01-30 00:50] VITALS: BMI 32.8
[2018-01-30] MEDS ORDERED: Sodium Chloride 0.9% 1,000 ML IV SCH (01:00)
[2018-01-30] MEDS ORDERED: Iodixanol 320 MG/ML 100 ML BOTTLE IV ONE (01:21)
[2018-01-30] MEDS ORDERED: Sodium Chloride 0.9% 1,000 ML ONE (01:37)
[2018-01-30 01:40] LABS: BASO # 0.1 K/uL (0.0-0.2); BASO % 1.4 % (0.0-2.0); EOS # 0.2 K/uL (0.0-0.7); EOS % 2.7 % (0.0-4.0); HEMOGLOBIN 10.2 g/dL (12.0-18.0); LYMPH # 1.1 K/uL (1.0-4.3); MEAN CELL VOLUME 94.4 fL (80.0-94.0); MEAN CORPUSCULAR HEMOGLOBIN 30.2 pg (27.0-31.0); MEAN PLATELET VOLUME 8.8 fL (7.2-11.7); MONO # 0.6 K/uL (0.0-0.8); MONO % 7.7 % (0.0-10.0); NEUT # 6.2 K/uL (1.8-7.0); NEUT % 75.2 % (50.0-75.0); RBC 3.37 Mil/uL (4.40-5.90); RED CELL DISTRIBUTION WIDTH 20.2 % (11.5-14.5); WHITE BLOOD COUNT 8.3 K/uL (4.8-10.8)
[2018-01-30 01:44] LABS: INR 1.1; PROTHROMBIN TIME 12.4 SECONDS (9.7-12.2)
[2018-01-30 01:50] LABS: ALB/GLOB RATIO 0.9 (1.0-2.1); ALBUMIN 3.3 g/dL (3.5-5.0); CALCIUM 9.1 mg/dl (8.6-10.4)
[2018-01-30] MEDS ORDERED: Sodium Chloride 0.9% 1,000 ML IV ONE (01:55)
[2018-01-30 02:02] LABS: TROPONIN I 0.029 ng/mL (0.00-0.120)
[2018-01-30 02:33] VITALS: BP 161/108; PULSE 106; RESP 19; TEMP 98.5; O2SAT 96
--- NOTE | 2018-01-30 08:37 | CT ---
Date of service: 01/30/2018 PROCEDURE: CT HEAD WITHOUT CONTRAST. HISTORY: Code Stroke COMPARISON: None available. TECHNIQUE: Axial computed tomography images were obtained through the head/brain without intravenous contrast. Radiation dose: Total exam DLP = 1881.46 mGy-cm. This CT exam was performed using one or more of the following dose reduction techniques: Automated exposure control, adjustment of the mA and/or kV according to patient size, and/or use of iterative reconstruction technique. FINDINGS: HEMORRHAGE: No intracranial hemorrhage. BRAIN: There are mild chronic microangiopathic changes. There is no mass, mass effect or abnormal extra-axial fluid collection. There is no territorial infarction. The midline sagittal structures are normal. VENTRICLES: There is mild age-related global parenchymal volume loss and proportionate enlargement of the ventricles and cortical sulci. CALVARIUM: There is no calvarial fracture or extracranial soft tissue swelling. PARANASAL SINUSES: Predominantly clear. MASTOID AIR CELLS: The right mastoid air cells are clear. The left mastoid air cells are underdeveloped. OTHER FINDINGS: None. IMPRESSION: No acute intracranial abnormality. If there is a persistent focal neurologic deficit and an ongoing clinical concern for acute infarction, an MRI of the brain without intravenous contrast would be a more sensitive modality for evaluation of hyperacute/acute ischemic infarction. Mild chronic microangiopathic changes and mild age-related global parenchymal volume loss. A preliminary report was provided by [facility].
--- NOTE | 2018-01-30 10:48 | RAD ---
Date of service: 01/30/2018 HISTORY: Code Stroke COMPARISON: 01/25/2018. FINDINGS: LUNGS: There is mild pulmonary venous congestion. There is airspace disease in the right lower lobe. The left lung is clear. PLEURA: Suspect small right pleural effusion. No pneumothorax. CARDIOVASCULAR: Moderate cardiomegaly. No aortic atherosclerotic calcification present. OSSEOUS STRUCTURES: Within normal limits for the patient's age. VISUALIZED UPPER ABDOMEN: Normal. OTHER FINDINGS: None. IMPRESSION: Airspace disease in the right lower lobe may represent atelectasis or pneumonia. Suspect small right pleural effusion.
--- NOTE | 2018-01-30 14:08 | CT ---
Date of service: 01/30/2018 PROCEDURE: CT Angiography of the neck and brain with contrast HISTORY: CVA COMPARISON: None. TECHNIQUE: Contiguous axial images of the neck and brain were obtained from the level of the vertex of the skull to the superior mediastinum in the arteriographic phase of enhancement. Coronal and sagittal reformats or also generated. IV contrast dose: 100 cc Visipaque 320 Radiation dose: Total exam DLP = 691.02 mGy-cm. This CT exam was performed using one or more of the following dose reduction techniques: Automated exposure control, adjustment of the mA and/or kV according to patient size, and/or use of iterative reconstruction technique. FINDINGS: The aorta is of widely patent. Mild aortic atherosclerotic calcification or mural plaque present. . Calcified atherosclerotic plaque changes are also seen at the origins of all 3 great vessels.. The common carotid arteries are patent. Mild atherosclerotic plaque changes are present at both carotid bifurcations extension into the proximal margins of both internal carotid arteries. Changes on the left side result in mild narrowing of the proximal left internal carotid artery estimated at approximately 50 % diameter stenosis. There is narrowing of the left right carotid bifurcation estimated at approximately 60-65 %. The distal internal carotid arteries including the petrous cavernous and supraclinoid segments are patent however there are calcified atherosclerotic plaque changes both carotid siphons. Both vertebral arteries are patent, left-sided which is only minimally larger in caliber/more dominant than the right side.. The the proximal intradural portions of the distal vertebral arteries exhibit partial calcified plaque changes well. Basilar artery is patent. The visualized major branches of the [id number] are also patent. Distal branches of the anterior middle and posterior cerebral arteries are patent and relatively symmetric. No evidence of large aneurysm nor vascular malformation. X which OTHER FINDINGS: Large bilateral effusions and bibasilar atelectasis seen in the upper lobes and lung apices. . IMPRESSION: There is narrowing of the right carotid bifurcation estimated at between 60-60 5 percent %percent%. Narrowing of the left proximal left internal carotid artery estimated at approximately %percent% %percent%. Partially calcified atherosclerotic plaque changes both carotid siphons and of proximal intradural portions of the distal vertebral arteries... The remaining intra cerebral circulation is patent as well. The 1st significant disc I No evidence of large aneurysm nor vascular malformation
--- NOTE | 2018-01-31 19:18 | CARD ---
APPROVED REPORT Date of service: 01/30/2018 EKG Measurement Heart [id number] <Conclusion> Atrial fibrillation with rapid ventricular response with premature ventricular or aberrantly conducted complexes Left axis deviation Inferior infarct, age undetermined Anterior infarct, age undetermined T wave abnormality, consider lateral ischemia Abnormal ECG
== END 2018-01-30 03:00 | disposition short-term general hospital (02) ==
LOC: C.ER 00:43
DX: I65.23 Occlusion and stenosis of bilateral carotid arteries (principal)
CPT/HCPCS: 70450; 70496; 70498; 71045; 80053; 80061; 82948; 83036; 84484; 85025; 85610; 85730; 86850; 86900; 93005; 99285; J7030; Q9967

== ENCOUNTER 2018-02-08 16:56 | Inpatient (IN) | payer MEDICARE, OTHER ==
[2018-02-08 16:56] VITALS: BMI 32.8
--- NOTE | 2018-02-08 18:28 | C.PDOC ---
History Of Present Illness 77 year old male, whose past medical history includes atrial fibrillation and CVA, is sent to the ED by skilled nursing for evaluation of elevated troponin levels, and shortness of breath which began today. Patient was also noted to hav e abnormal EKG today, but has history of atrial fibrillation. As per , patient has been experiencing chest pain and shortness of breath for "a long time." Additional history limited because of patient's clinical condition and his being a poor historian. Review of prior records shows that patient was evaluated in this ED in December 2017 after sustaining a right lower extremity injury, which was suggestive of a possible right tibial plateau depression deformity. Patient underwent admission and then was discharged. He returned the ED on 01/30 for evaluation of slurred speech and left-sided hemiplegia and was sent to [facility] for embolectomy after which he was transferred to a custodial facility. Time Seen by Provider: 02/08/18 17:16 Chief Complaint (Nursing): Abnormal Labs History Per: Family ( ) History/Exam Limitations: other (patient and are poor historians ) Current Symptoms Are (Timing): Still Present Additional History Per: Patient Past Medical History Reviewed: Historical Data, Nursing Documentation, Vital Signs Vital Signs: Last Vital Signs Temp 98.1 F 02/08/18 16:59 Pulse 97 H 02/08/18 16:59 Resp 20 02/08/18 16:59 BP 151/88 H 02/08/18 16:59 Pulse Ox 98 02/08/18 16:59 - Medical History PMH: Atrial Fibrillation, CAD, Diabetes, HTN, Hypercholesterolemia Denies: Arthritis, CHF, COPD, HIV, Hypothyroidism, Chronic Kidney Disease, Rheumatoid Arthritis Surgical History: Coronary Stent - [facility] Procedures CONTROL BLEEDING IN GENITOURINARY TRACT, ENDO (11/29/16) DILATION OF LEFT URETER WITH INTRALUMINAL DEVICE, ENDO (11/29/16) FLUOROSCOPY KIDNEY, URETER, BLADDER, L W L OSM CONTRAST (11/29/16) TRANSFUSE NONAUT FROZEN PLASMA IN PERIPH VEIN, PERC (01/16/18) TRANSFUSE NONAUT RED BLOOD CELLS IN PERIPH VEIN, PERC (01/16/18) Family History: States: Unknown Family Hx - Social History Hx Alcohol Use: No Hx Substance Use: No - Immunization History Hx Tetanus Toxoid Vaccination: No Hx Influenza Vaccination: No Hx Pneumococcal Vaccination: No Review Of Systems Review Of Systems: ROS cannot be obtained secondary to pt's inabilty to answer questions. Physical Exam - Physical Exam Appears: Non-toxic, No Acute Distress Skin: Normal Color, Warm, Dry Head: Atraumatic, Normacephalic Eye(s): bilateral: Normal Inspection Oral Mucosa: Moist Neck: Supple Chest: Symmetrical, No Deformity, No Tenderness Cardiovascular: Rhythm Irregular, No Murmur, Other (irregularly irregular) Respiratory: Rales (bilaterally), No Rhonchi, No Wheezing, Other (diminished breath sounds, due to shallow breathing) Gastrointestinal/Abdominal: Soft, No Tenderness, No Guarding, No Rebound Extremity: Pedal Edema, Capillary Refill (less than 2 seconds ), Other (imm obilizer in place on right lower extremity, diffuse dependent edema ) Neurological/Psych: Other (lethargic (baseline), 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 - Physician Consult Information Time Consulting Physician Contacted: 20:48 Physician Contacted: Kevin Osborne Outcome Of Conversation: Patient is well known to him. He will admit for management of CHF. Disposition - Disposition Disposition: HOSPITALIZED Disposition Time: 20:49 Condition: GUARDED - POA Present On Arrival: None - Clinical Impression Clinical Impression: CHF (congestive heart failure), Atrial fibrillation, Renal insufficiency - Scribe Statement The provider has reviewed the documentation as recorded by the Scribe (Pamela Stein) Provider Attestation: All medical record entries made by the Scribe were at my direction and personally dictated by me. I have reviewed the chart and agree that the record accurately reflects my personal performance of the history, physical exam, medical decision making, and the department course for this patient. I have also personally directed, reviewed, and agree with the discharge instructions and disposition.
[2018-02-08 18:32] LABS: BASO # 0.1 K/uL (0.0-0.2); BASO % 0.6 % (0.0-2.0); EOS # 0.3 K/uL (0.0-0.7); EOS % 3.1 % (0.0-4.0); HEMOGLOBIN 10.6 g/dL (12.0-18.0); LYMPH # 1.2 K/uL (1.0-4.3); LYMPH % 12.3 % (20.0-40.0); MEAN CELL VOLUME 94.6 fL (80.0-94.0); MEAN CORPUSCULAR HEMOGLOBIN 30.6 pg (27.0-31.0); MEAN CORPUSCULAR HGB CONC 32.4 g/dL (33.0-37.0); MONO # 0.7 K/uL (0.0-0.8); MONO % 7.3 % (0.0-10.0); NEUT # 7.5 K/uL (1.8-7.0); NEUT % 76.7 % (50.0-75.0); NRBC % 0.1 % (0.0-2.0); RBC 3.46 Mil/uL (4.40-5.90); RED CELL DISTRIBUTION WIDTH 20.9 % (11.5-14.5); WHITE BLOOD COUNT 9.8 K/uL (4.8-10.8)
[2018-02-08 18:45] LABS: INR 1.3; PROTHROMBIN TIME 14.4 SECONDS (9.7-12.2)
[2018-02-08 18:47] LABS: ALB/GLOB RATIO 0.9 (1.0-2.1); ALBUMIN 3.3 g/dL (3.5-5.0)
[2018-02-08 18:58] LABS: TROPONIN I 0.069 ng/mL (0.00-0.120)
[2018-02-08] MEDS ORDERED: Oxycodone/Acetaminophen 5/325 mg Tab PO PRN (20:48)
[2018-02-08] MEDS ORDERED: Enoxaparin 150 mg Syringe SC SCH (21:15)
[2018-02-08] MEDS ORDERED: Enoxaparin 40 mg Syringe ONE (21:24)
--- NOTE | 2018-02-08 21:36 | CP.PCM.CON ---
History of Present Illness - History of Present Illness History of Present Illness: 77 year old male with PMHx of atrial fibrillation on warfarin, HTN, CAD, DM-2, hypothyroidism, and HLD presents to [facility] with c/o SOB/abnormal labs (+)SOB, tachycardia, patient not able to provide any history PMHx: CAD s/p PCI, hypertension, type 2 diabetes mellitus, HLD, hypothyroidism, chronic atrial fibrillation, chronic indwelling Paulson catheter PSHx: Coronary stent PFHx: Denies Allergies: Denies Social Hx: denies tobacco, alcohol, and drug use. Lives with his at home. ICu consulted 2nd Tachycardia to 138. Review of Systems - Review of Systems Systems not reviewed;Unavailable: Altered Mental Status Past Patient History - Infectious Disease Hx of Infectious Diseases: None - Tetanus Immunizations Tetanus Immunization: Unknown - Past Medical History & Family History Past Medical History?: Yes - Past Social History Smoking Status: Never Smoked - CARDIAC Hx Atrial Fibrillation: Yes Hx Congestive Heart Failure: No Hx Hypercholesterolemia: Yes Hx Hypertension: Yes - PULMONARY Hx Chronic Obstructive Pulmonary Disease (COPD): No - NEUROLOGICAL Hx Neurological Disorder: No - HEENT Hx HEENT Problems: No - RENAL Hx Chronic Kidney Disease: No - ENDOCRINE/METABOLIC Hx Hypothyroidism: No - HEMATOLOGICAL/ONCOLOGICAL Hx Human Immunodeficiency Virus (HIV): No - INTEGUMENTARY Hx Dermatological Problems: No - MUSCULOSKELETAL/RHEUMATOLOGICAL Hx Arthritis: No Hx Rheumatoid Arthritis: No - GASTROINTESTINAL Hx Gastrointestinal Disorders: No - GENITOURINARY/GYNECOLOGICAL Hx Genitourinary Disorders: No - PSYCHIATRIC Hx Substance Use: No - SURGICAL HISTORY Hx Coronary Stent: Yes - ANESTHESIA Hx Anesthesia: Yes Hx Anesthesia Reactions: No Hx Malignant Hyperthermia: No Meds Allergies/Adverse Reactions: Allergies Allergy/AdvReac Type Severity Reaction Status Date / Time No Known Allergies Allergy Verified 02/08/18 17:01 - Medications Medications: Current Medications Enoxaparin Sodium (Lovenox) 40 mg SC DAILY [facility] Enoxaparin Sodium (Lovenox) 40 mg SC Q12H [facility] Furosemide (Lasix) 40 mg IVP DAILY [facility] Gabapentin (Neurontin) 100 mg PO TID [facility] Hydralazine HCl (Apresoline) 50 mg PO Q8 [facility] Diltiazem HCl 125 mg/ Dextrose 125 mls @ 10 mls/hr IV .[id number] [facility]; Protocol Insulin Human Regular (Novolin R) 0 unit SC ACHS [facility]; Protocol Levothyroxine Sodium (Synthroid) 25 mcg PO DAILY@0630 [facility] Metoprolol Tartrate (Lopressor) 100 mg PO BIDBS [facility] Pantoprazole Sodium (Protonix Ec Tab) 20 mg PO DAILY [facility] Physical Exam - Head Exam Head Exam: ATRAUMATIC, NORMAL INSPECTION - Eye Exam Eye Exam: EOMI - ENT Exam ENT Exam: Mucous Membranes Moist - Respiratory Exam Respiratory Exam: Clear to Auscultation Bilateral, Rales, Respiratory Distress. absent: Stridor - Cardiovascular Exam Cardiovascular Exam: Tachycardia, Irregular Rhythm, +S1, +S2, Systolic Murmur - GI/Abdominal Exam GI & Abdominal Exam: Normal Bowel Sounds, Soft. absent: Diminished Bowel Sounds, Guarding, Tenderness - Extremities Exam Extremities exam: Positive for: pedal edema - Neurological Exam Neurological exam: Altered - Skin Skin Exam: Normal Color Results - Vital Signs Recent Vital Signs: Last Vital Signs Temp 98.1 F 02/08/18 16:59 Pulse 138 H 02/08/18 20:50 Resp 32 H 02/08/18 20:50 BP 166/118 H 02/08/18 20:50 Pulse Ox 98 02/08/18 20:50 - Labs Result Diagrams: 02/08/18 18:21 02/08/18 18:21 Labs: Laboratory Results - last 24 hr 02/08/18 02/08/18 02/08/18 18:21 18:21 18:21 WBC 9.8 RBC 3.46 L Hgb 10.6 L Hct 32.8 L MCV 94.6 H MCH 30.6 MCHC 32.4 L RDW 20.9 H Plt Count 247 MPV 10.0 Neut % (Auto) 76.7 H Lymph % (Auto) 12.3 L [place] % (Auto) 7.3 Eos % (Auto) 3.1 Baso % (Auto) 0.6 Neut # (Auto) 7.5 H Lymph # (Auto) 1.2 [place] # (Auto) 0.7 Eos # (Auto) 0.3 Baso # (Auto) 0.1 PT 14.4 H INR 1.3 APTT 33 D-Dimer, Quantitative 894 H Sodium 142 Potassium 3.9 Chloride 108 H Carbon Dioxide 24 Anion Gap 13 BUN 45 H Creatinine 2.1 H Est GFR ( Amer) 37 Est GFR (Non-Af Amer) 31 Random Glucose 191 H Calcium 9.0 Total Bilirubin 0.9 AST 24 ALT 21 D Alkaline Phosphatase 98 Troponin I 0.0690 NT-Pro-B Natriuret Pep 33860 H Total Protein 6.8 Albumin 3.3 L Globulin 3.5 Albumin/Globulin Ratio 0.9 L Assessment & Plan - Assessment and Plan (Free Text) Assessment: -Acute diastoilc heart failure/CAD: continue bi-pap, negative balance, continue m[facility]p av harry tonny, not acandidate for ACI 2n renal failure, check fecal occul tblood start AC + antiplatelts if risk of bleeding lower than risk of CAD/MA -ckd STAGE iii: avoid nephrotoxic drugs, continue to monitor, paulson placed -A-fib: HR controlled, will continue AC (CHADvasc score >2 ), patient at risk of CVA and also at risk of Acute blood loss anemia (last admission 12/2017) -Anemia: h/o ACute blood loss anemia (12/2017), check fecal occult blood (BUN high), check iron profile -Sepsis: UA/ucx, check lactic, procalcitonin will be high in renal failure, ortiz culture, start abx if febrile -dvt ppx: lovenox -PUD ppx: protonix q12 -Chornic paulson: start flomax, bedside bladder sono reveals urinary retention, paulson placed -AVOID SEDATIONS (OXYCODONE/OPOIDS/BENZO) Patient's HR was high 2nd slight respiratory difficulty 2nd heart failure, rxed heart fialure with bi-pap, bumex and verapamil -FiO2 remains 30% PAtient remains hemodynamically stable. Patient will benefit from continued bi-pap until euvolemic state obtained. -Avoid fluid overloaded states Multiple diagnostic test pending cc time 45 minutes co-ordinating care between nursing, respiratory therapist and bedside evaluation. Please call ICU if patient's clinical status worsens. - Date & Time Date: 02/08/18 Time: 21:36
[2018-02-08] MEDS: (Novolin R) Insulin Human Regular 100 units/ml vial SC SCH (23:00)
[2018-02-08 23:11] LABS: URINE BACTERIA FEW (<OCC); URINE BILIRUBIN NEGATIVE (NEGATIVE); URINE BLOOD 2+ (NEGATIVE); URINE CLARITY Turbid (Clear); URINE GLUCOSE (UA) NORMAL (Normal); URINE LEUKOCYTE ESTERASE 3+ Leu/uL (Negative); URINE PROTEIN 2+ mg/dL (NEGATIVE); URINE UROBILINOGEN NORMAL mg/dL (0.2-1.0); WBC CLUMPS MANY /hpf
[2018-02-08 23:14] LABS: ABG ALLEN TEST YES; ARTERIAL BLOOD GAS HCO3 26.2 mmol/L (21-28); ARTERIAL BLOOD GAS O2 SAT 99.3 % (95-98); ARTERIAL BLOOD GAS PCO2 31 mm/Hg (35-45); ARTERIAL BLOOD GAS PO2 75 mm/Hg (80-100); ARTERIAL BLOOD GAS TCO2 25.2 mmol/L (22-28)
[2018-02-08 23:28] LABS: BARBITURATES, UR NEGATIVE (NEGATIVE); BENZODIAZEPINES, UR NEGATIVE (NEGATIVE); OPIATES, UR NEGATIVE (NEGATIVE); PHENCYCLIDINE, UR NEGATIVE (NEGATIVE)
[2018-02-08 23:28] LABS: URINE COLOR YELLOW (YELLOW)
[2018-02-09] MEDS: Piperacill/Tazo 2.25gm in Dex 2.25 GM/50 ML BAG IVPB SCH ×3 (01:25→15:13)
[2018-02-09 02:00] LABS: CK-MB 1.35 ng/mL (0.0-3.38); TROPONIN I 0.066 ng/mL (0.00-0.120)
[2018-02-09] MEDS: Levothyroxine 25 MCG TAB PO SCH (05:55)
[2018-02-09 07:30] LABS: CK-MB 1.26 ng/mL (0.0-3.38); TROPONIN I 0.065 ng/mL (0.00-0.120)
[2018-02-09] MEDS: (Novolin R) Insulin Human Regular 100 units/ml vial SC SCH ×4 (08:15→21:50)
--- NOTE | 2018-02-09 10:01 | RAD ---
Chest x-ray single frontal view History: Shortness of breath. Comparison: 01/16/2018 Findings: Moderate to severe venous congestion. Right hilar and infrahilar consolidative changes. Patchy increased markings at the lung bases. Small left pleural effusion. Atherosclerotic calcification at the aortic knob. Cardiomegaly. Degenerative changes in the spine and shoulders. Impression: Moderate to severe venous congestion. Right hilar and infrahilar consolidative changes. Patchy increased markings at the lung bases. Small left pleural effusion. Atherosclerotic calcification at the aortic knob. Cardiomegaly.
--- NOTE | 2018-02-09 10:53 | CARD ---
APPROVED REPORT Date of service: 02/08/2018 EKG Measurement Heart [id number] <Conclusion> Atrial fibrillation with rapid ventricular response Left anterior fascicular block Anteroseptal infarct, age undetermined Abnormal ECG
[2018-02-09] MEDS: Pantoprazole 20 mg EC Tab PO SCH (11:14)
[2018-02-09 12:30] LABS: BASO # 0.1 K/uL (0.0-0.2); BASO % 0.8 % (0.0-2.0); EOS # 0.3 K/uL (0.0-0.7); EOS % 2.9 % (0.0-4.0); HEMOGLOBIN 10.2 g/dL (12.0-18.0); LYMPH # 0.8 K/uL (1.0-4.3); LYMPH % 8.3 % (20.0-40.0); MEAN CELL VOLUME 95.8 fL (80.0-94.0); MEAN CORPUSCULAR HEMOGLOBIN 31.6 pg (27.0-31.0); MEAN PLATELET VOLUME 10.1 fL (7.2-11.7); MONO # 0.7 K/uL (0.0-0.8); MONO % 7.2 % (0.0-10.0); NEUT # 8.2 K/uL (1.8-7.0); NEUT % 80.8 % (50.0-75.0); PLATELET COUNT 247 K/uL (130-400); RBC 3.24 Mil/uL (4.40-5.90); RED CELL DISTRIBUTION WIDTH 20.4 % (11.5-14.5); WHITE BLOOD COUNT 10.1 K/uL (4.8-10.8)
[2018-02-09 13:13] LABS: EOSINOPHIL 1 % (0-4); LYMPHOCYTE 9 % (20-40); MONOCYTE 4 % (0-10); NEUTROPHIL 86 % (50-75); PLATELET ESTIMATE NORMAL (NORMAL); TOTAL CELLS COUNTED 100
[2018-02-09 13:14] LABS: ANISOCYTOSIS SLIGHT; BURR CELLS SLIGHT; HYPOCHROMIC SLIGHT; POIKILOCYTOSIS SLIGHT
[2018-02-09 13:28] LABS: CALCIUM 8.8 mg/dl (8.6-10.4)
--- NOTE | 2018-02-09 16:48 | CP.PCM.CON ---
History of Present Illness - History of Present Illness History of Present Illness: Reason for Consultation: Dyspnea Patient is a 77 yo male with PMHx of AFib on warfarin, HTN, CAD, DM2, Hypothyroidism, and HLD who presented to the ED on 02/08/18 with SOB and elevated troponin levels at longterm. Per , she says he has been experiencing chest pain and SOB for a long time. Patient was in ED recently in December 2017 after a RLE injury. PMHx: AFib on warfarin, HTN, CAD s/p PCI, DM2, Hypothyroidism, and HLD PSHx: Coronary stent Social Hx: Denies tobacco use, alcohol use, and illicit drug use. lives with at home Family Hx: Noncontributory Allergies: NKDA Medications: At home: Ventolin, Trental, Flomax and Proscar. CXR (02/08/18): Moderate to severe venous congestion. Right hilar and infrahilar consolidative changes. Patchy increased marking at the lung bases. Small left pleural effusion. Atherosclerotic calcification at the aortic knob. Cardiomegaly. Review of Systems - Review of Systems All systems: reviewed and no additional remarkable complaints except (Shortness of breath) Past Patient History - Infectious Disease Hx of Infectious Diseases: None - Tetanus Immunizations Tetanus Immunization: Unknown - Past Medical History & Family History Past Medical History?: Yes - Past Social History Smoking Status: Former Smoker - CARDIAC Hx Atrial Fibrillation: Yes Hx Congestive Heart Failure: No Hx Hypercholesterolemia: Yes Hx Hypertension: Yes - PULMONARY Hx Chronic Obstructive Pulmonary Disease (COPD): No - NEUROLOGICAL Hx Neurological Disorder: No - HEENT Hx HEENT Problems: No - RENAL Hx Chronic Kidney Disease: No - ENDOCRINE/METABOLIC Hx Hypothyroidism: No - HEMATOLOGICAL/ONCOLOGICAL Hx Human Immunodeficiency Virus (HIV): No - INTEGUMENTARY Hx Dermatological Problems: No - MUSCULOSKELETAL/RHEUMATOLOGICAL Hx Falls: Yes - GASTROINTESTINAL Hx Gastrointestinal Disorders: No - GENITOURINARY/GYNECOLOGICAL Hx Genitourinary Disorders: No - PSYCHIATRIC Hx Substance Use: No - SURGICAL HISTORY Hx Coronary Stent: Yes - ANESTHESIA Hx Anesthesia: Yes Hx Anesthesia Reactions: No Hx Malignant Hyperthermia: No Meds Allergies/Adverse Reactions: Allergies Allergy/AdvReac Type Severity Reaction Status Date / Time No Known Allergies Allergy Verified 02/08/18 17:01 - Medications Medications: Current Medications Furosemide (Lasix) 40 mg IVP DAILY [facility] Last Admin: 02/09/18 11:15 Dose: 40 mg Gabapentin (Neurontin) 100 mg PO HS [facility] Heparin Sodium (Porcine) (Heparin) 5,000 units SC Q8H [facility] Last Admin: 02/09/18 13:56 Dose: Not Given Hydralazine HCl (Apresoline) 50 mg PO Q8 [facility] Last Admin: 02/09/18 13:51 Dose: 50 mg Piperacillin Sod/Tazobactam Sod (Zosyn 2.25 Gm Iv Premix) 2.25 gm in 50 mls @ 100 mls/hr IVPB Q8H [facility]; Protocol Last Admin: 02/09/18 15:13 Dose: 100 mls/hr Insulin Human Regular (Novolin R) 0 unit SC ACHS [facility]; Protocol Last Admin: 02/09/18 13:03 Dose: Not Given Levothyroxine Sodium (Synthroid) 25 mcg PO DAILY@0630 [facility] Last Admin: 02/09/18 05:55 Dose: 25 mcg Metoprolol Tartrate (Lopressor) 100 mg PO BIDBS [facility] Last Admin: 02/09/18 08:15 Dose: 100 mg Pantoprazole Sodium (Protonix Ec Tab) 20 mg PO DAILY [facility] Last Admin: 02/09/18 11:14 Dose: 20 mg Tamsulosin HCl (Flomax) 0.4 mg PO DAILY [facility] Last Admin: 02/09/18 11:14 Dose: 0.4 mg Physical Exam - Head Exam Head Exam: ATRAUMATIC, NORMOCEPHALIC - ENT Exam ENT Exam: Mucous Membranes Moist - Neck Exam Neck exam: Positive for: Normal Inspection - Respiratory Exam Respiratory Exam: Rales - Cardiovascular Exam Cardiovascular Exam: REGULAR RHYTHM Results - Vital Signs Recent Vital Signs: Last Vital Signs Temp 98.3 F 02/09/18 15:00 Pulse 88 02/09/18 15:00 Resp 16 02/09/18 15:00 BP 114/72 02/09/18 15:00 Pulse Ox 99 02/09/18 15:00 - Labs Result Diagrams: 02/09/18 12:18 02/09/18 12:18 Labs: Laboratory Results - last 24 hr 02/08/18 02/08/18 02/08/18 18:21 18:21 18:21 WBC 9.8 RBC 3.46 L Hgb 10.6 L Hct 32.8 L MCV 94.6 H MCH 30.6 MCHC 32.4 L RDW 20.9 H Plt Count 247 MPV 10.0 Neut % (Auto) 76.7 H Lymph % (Auto) 12.3 L [place] % (Auto) 7.3 Eos % (Auto) 3.1 Baso % (Auto) 0.6 Neut # (Auto) 7.5 H Lymph # (Auto) 1.2 [place] # (Auto) 0.7 Eos # (Auto) 0.3 Baso # (Auto) 0.1 Neutrophils % (Manual) Lymphocytes % (Manual) Monocytes % (Manual) Eosinophils % (Manual) Platelet Estimate Hypochromasia (manual) Poikilocytosis (manual Basophilic Stippling Anisocytosis (manual) [place] Cells PT 14.4 H INR 1.3 APTT 33 D-Dimer, Quantitative 894 H Puncture Site pCO2 pO2 HCO3 ABG pH ABG Total CO2 ABG O2 Saturation ABG Base Excess Yusuf Test ABG Potassium A-a O2 Difference Respiratory Index Glucose Lactate FiO2 Sodium 142 Potassium 3.9 Chloride 108 H Carbon Dioxide 24 Anion Gap 13 BUN 45 H Creatinine 2.1 H Est GFR ( Amer) 37 Est GFR (Non-Af Amer) 31 POC Glucose (mg/dL) Random Glucose 191 H Calcium 9.0 Total Bilirubin 0.9 AST 24 ALT 21 D Alkaline Phosphatase 98 Total Creatine Kinase CK-MB (Mass) Troponin I 0.0690 NT-Pro-B Natriuret Pep 82651 H Total Protein 6.8 Albumin 3.3 L Globulin 3.5 Albumin/Globulin Ratio 0.9 L Arterial Blood Potassium Urine Color Urine Clarity Urine pH Ur Specific [place] Urine Protein Urine Glucose (UA) Urine Ketones Urine Blood Urine Nitrate Urine Bilirubin Urine Urobilinogen Ur Leukocyte Esterase Urine WBC (Auto) Urine RBC (Auto) Urine WBC Clumps (Auto) Urine Bacteria Ur Yeast w Hyphae Urine Yeast (Budding) Urine Opiates Screen Urine Methadone Screen Ur Barbiturates Screen Ur Phencyclidine Scrn Ur Amphetamines Screen U Benzodiazepines Scrn U Oth Cocaine Metabols U Cannabinoids Screen 02/08/18 02/08/18 02/08/18 22:47 22:50 22:55 WBC RBC Hgb Hct MCV MCH MCHC RDW Plt Count MPV Neut % (Auto) Lymph % (Auto) [place] % (Auto) Eos % (Auto) Baso % (Auto) Neut # (Auto) Lymph # (Auto) [place] # (Auto) Eos # (Auto) Baso # (Auto) Neutrophils % (Manual) Lymphocytes % (Manual) Monocytes % (Manual) Eosinophils % (Manual) Platelet Estimate Hypochromasia (manual) Poikilocytosis (manual Basophilic Stippling Anisocytosis (manual) [place] Cells PT INR APTT D-Dimer, Quantitative Puncture Site Rr pCO2 31 L pO2 75 L HCO3 26.2 ABG pH 7.50 H ABG Total CO2 25.2 ABG O2 Saturation 99.3 H ABG Base Excess 1.7 Yusuf Test Yes ABG Potassium 3.7 A-a O2 Difference 100.0 Respiratory Index 1.3 Glucose 194 H Lactate 1.0 FiO2 30.0 Sodium 145.0 Potassium Chloride 115.0 H Carbon Dioxide Anion Gap BUN Creatinine Est GFR ( Amer) Est GFR (Non-Af Amer) POC Glucose (mg/dL) 171 H Random Glucose Calcium Total Bilirubin AST ALT Alkaline Phosphatase Total Creatine Kinase CK-MB (Mass) Troponin I NT-Pro-B Natriuret Pep Total Protein Albumin Globulin Albumin/Globulin Ratio Arterial Blood Potassium 3.7 Urine Color Urine Clarity Urine pH Ur Specific [place] Urine Protein Urine Glucose (UA) Urine Ketones Urine Blood Urine Nitrate Urine Bilirubin Urine Urobilinogen Ur Leukocyte Esterase Urine WBC (Auto) Urine RBC (Auto) Urine WBC Clumps (Auto) Urine Bacteria Ur Yeast w Hyphae Urine Yeast (Budding) Urine Opiates Screen Negative Urine Methadone Screen Negative Ur Barbiturates Screen Negative Ur Phencyclidine Scrn Negative Ur Amphetamines Screen Negative U Benzodiazepines Scrn Negative U Oth Cocaine Metabols Negative U Cannabinoids Screen Negative 02/08/18 02/09/18 02/09/18 22:57 01:13 02:16 WBC RBC Hgb Hct MCV MCH MCHC RDW Plt Count MPV Neut % (Auto) Lymph % (Auto) [place] % (Auto) Eos % (Auto) Baso % (Auto) Neut # (Auto) Lymph # (Auto) [place] # (Auto) Eos # (Auto) Baso # (Auto) Neutrophils % (Manual) Lymphocytes % (Manual) Monocytes % (Manual) Eosinophils % (Manual) Platelet Estimate Hypochromasia (manual) Poikilocytosis (manual Basophilic Stippling Anisocytosis (manual) [place] Cells PT INR APTT D-Dimer, Quantitative Puncture Site pCO2 pO2 HCO3 ABG pH ABG Total CO2 ABG O2 Saturation ABG Base Excess Yusuf Test ABG Potassium A-a O2 Difference Respiratory Index Glucose Lactate FiO2 Sodium Potassium Chloride Carbon Dioxide Anion Gap BUN Creatinine Est GFR ( Amer) Est GFR (Non-Af Amer) POC Glucose (mg/dL) 197 H Random Glucose Calcium Total Bilirubin AST ALT Alkaline Phosphatase Total Creatine Kinase 44 L CK-MB (Mass) 1.35 Troponin I 0.0660 NT-Pro-B Natriuret Pep Total Protein Albumin Globulin Albumin/Globulin Ratio Arterial Blood Potassium Urine Color Yellow Urine Clarity Turbid Urine pH 5.0 Ur Specific [place] 1.012 Urine Protein 2+ H Urine Glucose (UA) Normal Urine Ketones Negative Urine Blood 2+ H Urine Nitrate Negative Urine Bilirubin Negative Urine Urobilinogen Normal Ur Leukocyte Esterase 3+ H Urine WBC (Auto) 2542 H Urine RBC (Auto) 51 H Urine WBC Clumps (Auto) Many H Urine Bacteria Few H Ur Yeast w Hyphae Occ H Urine Yeast (Budding) Many H Urine Opiates Screen Urine Methadone Screen Ur Barbiturates Screen Ur Phencyclidine Scrn Ur Amphetamines Screen U Benzodiazepines Scrn U Oth Cocaine Metabols U Cannabinoids Screen 02/09/18 02/09/18 02/09/18 06:29 06:40 11:15 WBC RBC Hgb Hct MCV MCH MCHC RDW Plt Count MPV Neut % (Auto) Lymph % (Auto) [place] % (Auto) Eos % (Auto) Baso % (Auto) Neut # (Auto) Lymph # (Auto) [place] # (Auto) Eos # (Auto) Baso # (Auto) Neutrophils % (Manual) Lymphocytes % (Manual) Monocytes % (Manual) Eosinophils % (Manual) Platelet Estimate Hypochromasia (manual) Poikilocytosis (manual Basophilic Stippling Anisocytosis (manual) Denia Cells PT INR APTT D-Dimer, Quantitative Puncture Site pCO2 pO2 HCO3 ABG pH ABG Total CO2 ABG O2 Saturation ABG Base Excess Yusuf Test ABG Potassium A-a O2 Difference Respiratory Index Glucose Lactate FiO2 Sodium Potassium Chloride Carbon Dioxide Anion Gap BUN Creatinine Est GFR ( Amer) Est GFR (Non-Af Amer) POC Glucose (mg/dL) 216 H 176 H Random Glucose Calcium Total Bilirubin AST ALT Alkaline Phosphatase Total Creatine Kinase 32 L CK-MB (Mass) 1.26 Troponin I 0.0650 NT-Pro-B Natriuret Pep Total Protein Albumin Globulin Albumin/Globulin Ratio Arterial Blood Potassium Urine Color Urine Clarity Urine pH Ur Specific [place] Urine Protein Urine Glucose (UA) Urine Ketones Urine Blood Urine Nitrate Urine Bilirubin Urine Urobilinogen Ur Leukocyte Esterase Urine WBC (Auto) Urine RBC (Auto) Urine WBC Clumps (Auto) Urine Bacteria Ur Yeast w Hyphae Urine Yeast (Budding) Urine Opiates Screen Urine Methadone Screen Ur Barbiturates Screen Ur Phencyclidine Scrn Ur Amphetamines Screen U Benzodiazepines Scrn U Oth Cocaine Metabols U Cannabinoids Screen 02/09/18 02/09/18 12:18 12:18 WBC 10.1 RBC 3.24 L Hgb 10.2 L Hct 31.0 L MCV 95.8 H MCH 31.6 H MCHC 33.0 RDW 20.4 H Plt Count 247 MPV 10.1 Neut % (Auto) 80.8 H Lymph % (Auto) 8.3 L [place] % (Auto) 7.2 Eos % (Auto) 2.9 Baso % (Auto) 0.8 Neut # (Auto) 8.2 H Lymph # (Auto) 0.8 L [place] # (Auto) 0.7 Eos # (Auto) 0.3 Baso # (Auto) 0.1 Neutrophils % (Manual) 86 H Lymphocytes % (Manual) 9 L Monocytes % (Manual) 4 Eosinophils % (Manual) 1 Platelet Estimate Normal Hypochromasia (manual) Slight Poikilocytosis (manual Slight Basophilic Stippling Slight Anisocytosis (manual) Slight [place] Cells Slight PT INR APTT D-Dimer, Quantitative Puncture Site pCO2 pO2 HCO3 ABG pH ABG Total CO2 ABG O2 Saturation ABG Base Excess Yusuf Test ABG Potassium A-a O2 Difference Respiratory Index Glucose Lactate FiO2 Sodium 142 Potassium 3.6 Chloride 108 H Carbon Dioxide 25 Anion Gap 13 BUN 40 H Creatinine 1.9 H Est GFR ( Amer) 42 Est GFR (Non-Af Amer) 35 POC Glucose (mg/dL) Random Glucose 183 H Calcium 8.8 Total Bilirubin AST ALT Alkaline Phosphatase Total Creatine Kinase CK-MB (Mass) Troponin I NT-Pro-B Natriuret Pep Total Protein Albumin Globulin Albumin/Globulin Ratio Arterial Blood Potassium Urine Color Urine Clarity Urine pH Ur Specific [place] Urine Protein Urine Glucose (UA) Urine Ketones Urine Blood Urine Nitrate Urine Bilirubin Urine Urobilinogen Ur Leukocyte Esterase Urine WBC (Auto) Urine RBC (Auto) Urine WBC Clumps (Auto) Urine Bacteria Ur Yeast w Hyphae Urine Yeast (Budding) Urine Opiates Screen Urine Methadone Screen Ur Barbiturates Screen Ur Phencyclidine Scrn Ur Amphetamines Screen U Benzodiazepines Scrn U Oth Cocaine Metabols U Cannabinoids Screen Assessment & Plan (1) Atrial fibrillation Status: Acute (2) CHF (congestive heart failure) Status: Acute Comment: chest x-ray consistent with severe pulmonary congestion. Rule out diastolic dysfunction or fluid overload. Continue diuretics. BiPAP. Followup chest x-ray. Unlikely pulmonary embolism. Venous Doppler negative for DVT (3) Renal insufficiency Status: Acute
--- NOTE | 2018-02-09 17:57 | CARD ---
APPROVED REPORT Date of service: 02/09/2018 EXAM: Two-dimensional and M-mode echocardiogram with Doppler and color Doppler. Other Information Quality : GoodRhythm : Atrial Fibrillation INDICATION CVA/TIA Congestive Heart Failure 2D DIMENSIONS IVSd1.3 (0.7-1.1cm)LVDd5.3 (3.9-5.9cm) LVOT Diameter2.5 (1.8-2.4cm)PWd1.3 (0.7-1.1cm) LA [id number] (18-58mL)LVDs4.1 (2.5-4.0cm) FS (%) 23.0 %LVEF (%)45.7 (>50%) LVEF ([place])40 % M-Mode DIMENSIONS Left Atrium (MM)4.97 (2.5-4.0cm)IVSd1.17 (0.7-1.1cm) Aortic Root3.90 (2.2-3.7cm)LVDd5.88 (4.0-5.6cm) Aortic Cusp Exc.1.94 (1.5-2.0cm)PWd1.13 (0.7-1.1cm) FS (%) 26 %LVDs4.33 (2.0-3.8cm) LVEF (%)45 (>50%) Mitral Valve MV E Rwjhmknk27.5cm/sE/A ratio0.0 TDI Lateral E' Peak V4.87cm/sMedial E' Peak V4.48cm/sE/Lateral E'19.8 E/Medial E'21.5 Tricuspid Valve TR Peak [id number]/sTR Peak [id number] LEFT VENTRICLE The left ventricle is normal size. There is mild concentric left ventricular hypertrophy. The systolic function is mildly to moderately impaired. There is global hypokinesis of the left ventricle. No left ventricle thrombus noted on this study. RIGHT VENTRICLE The right ventricle is normal size. Systolic function is mildly reduced. ATRIA The left atrium is moderately dilated. The right atrium is mildly dilated. AORTIC VALVE The aortic valve is severely thickened. No aortic regurgitation is present. There is no aortic valvular stenosis. MITRAL VALVE Mitral regurgitation is mild. TRICUSPID VALVE There is severe tricuspid regurgitation. There is severe pulmonary hypertension. PULMONIC VALVE There is trace pulmonic valvular regurgitation. GREAT VESSELS The aortic root is normal in size. <Conclusion> There is mild concentric left ventricular hypertrophy. The systolic function is mildly to moderately impaired. There is global hypokinesis of the left ventricle. The Eve and aortic valves are severely thickened.Can't rule out a vegitation Mitral regurgitation is mild. There is severe pulmonary hypertension.
--- NOTE | 2018-02-09 21:54 | CP.PCM.HP ---
Past Patient History - Infectious Disease Hx of Infectious Diseases: None - Tetanus Immunizations Tetanus Immunization: Unknown - Past Medical History & Family History Past Medical History?: Yes - Past Social History Smoking Status: Former Smoker - CARDIAC Hx Atrial Fibrillation: Yes Hx Congestive Heart Failure: No Hx Hypercholesterolemia: Yes Hx Hypertension: Yes - PULMONARY Hx Chronic Obstructive Pulmonary Disease (COPD): No - NEUROLOGICAL Hx Neurological Disorder: No - HEENT Hx HEENT Problems: No - RENAL Hx Chronic Kidney Disease: No - ENDOCRINE/METABOLIC Hx Hypothyroidism: No - HEMATOLOGICAL/ONCOLOGICAL Hx Human Immunodeficiency Virus (HIV): No - INTEGUMENTARY Hx Dermatological Problems: No - MUSCULOSKELETAL/RHEUMATOLOGICAL Hx Falls: Yes - GASTROINTESTINAL Hx Gastrointestinal Disorders: No - GENITOURINARY/GYNECOLOGICAL Hx Genitourinary Disorders: No - PSYCHIATRIC Hx Substance Use: No - SURGICAL HISTORY Hx Coronary Stent: Yes - ANESTHESIA Hx Anesthesia: Yes Hx Anesthesia Reactions: No Hx Malignant Hyperthermia: No Meds Allergies/Adverse Reactions: Allergies Allergy/AdvReac Type Severity Reaction Status Date / Time No Known Allergies Allergy Verified 02/08/18 17:01 Results - Vital Signs Recent Vital Signs: Last Vital Signs Temp 98.3 F 02/09/18 15:00 Pulse 85 02/09/18 20:00 Resp 16 02/09/18 15:00 BP 114/72 02/09/18 15:00 Pulse Ox 99 02/09/18 15:00 - Labs Result Diagrams: 02/09/18 12:18 02/09/18 12:18 Labs: Laboratory Results - last 24 hr 02/08/18 02/08/18 02/08/18 22:47 22:50 22:55 WBC RBC Hgb Hct MCV MCH MCHC RDW Plt Count MPV Neut % (Auto) Lymph % (Auto) [place] % (Auto) Eos % (Auto) Baso % (Auto) Neut # (Auto) Lymph # (Auto) [place] # (Auto) Eos # (Auto) Baso # (Auto) Neutrophils % (Manual) Lymphocytes % (Manual) Monocytes % (Manual) Eosinophils % (Manual) Platelet Estimate Hypochromasia (manual) Poikilocytosis (manual Basophilic Stippling Anisocytosis (manual) [place] Cells Puncture Site Rr pCO2 31 L pO2 75 L HCO3 26.2 ABG pH 7.50 H ABG Total CO2 25.2 ABG O2 Saturation 99.3 H ABG Base Excess 1.7 Yusuf Test Yes ABG Potassium 3.7 A-a O2 Difference 100.0 Respiratory Index 1.3 Sodium 145.0 Chloride 115.0 H Glucose 194 H Lactate 1.0 FiO2 30.0 Potassium Carbon Dioxide Anion Gap BUN Creatinine Est GFR ( Amer) Est GFR (Non-Af Amer) POC Glucose (mg/dL) 171 H Random Glucose Calcium Total Creatine Kinase CK-MB (Mass) Troponin I Arterial Blood Potassium 3.7 Urine Color Urine Clarity Urine pH Ur Specific [place] Urine Protein Urine Glucose (UA) Urine Ketones Urine Blood Urine Nitrate Urine Bilirubin Urine Urobilinogen Ur Leukocyte Esterase Urine WBC (Auto) Urine RBC (Auto) Urine WBC Clumps (Auto) Urine Bacteria Ur Yeast w Hyphae Urine Yeast (Budding) Urine Opiates Screen Negative Urine Methadone Screen Negative Ur Barbiturates Screen Negative Ur Phencyclidine Scrn Negative Ur Amphetamines Screen Negative U Benzodiazepines Scrn Negative U Oth Cocaine Metabols Negative U Cannabinoids Screen Negative 02/08/18 02/09/18 02/09/18 22:57 01:13 02:16 WBC RBC Hgb Hct MCV MCH MCHC RDW Plt Count MPV Neut % (Auto) Lymph % (Auto) [place] % (Auto) Eos % (Auto) Baso % (Auto) Neut # (Auto) Lymph # (Auto) [place] # (Auto) Eos # (Auto) Baso # (Auto) Neutrophils % (Manual) Lymphocytes % (Manual) Monocytes % (Manual) Eosinophils % (Manual) Platelet Estimate Hypochromasia (manual) Poikilocytosis (manual Basophilic Stippling Anisocytosis (manual) Denia Cells Puncture Site pCO2 pO2 HCO3 ABG pH ABG Total CO2 ABG O2 Saturation ABG Base Excess Yusuf Test ABG Potassium A-a O2 Difference Respiratory Index Sodium Chloride Glucose Lactate FiO2 Potassium Carbon Dioxide Anion Gap BUN Creatinine Est GFR ( Amer) Est GFR (Non-Af Amer) POC Glucose (mg/dL) 197 H Random Glucose Calcium Total Creatine Kinase 44 L CK-MB (Mass) 1.35 Troponin I 0.0660 Arterial Blood Potassium Urine Color Yellow Urine Clarity Turbid Urine pH 5.0 Ur Specific [place] 1.012 Urine Protein 2+ H Urine Glucose (UA) Normal Urine Ketones Negative Urine Blood 2+ H Urine Nitrate Negative Urine Bilirubin Negative Urine Urobilinogen Normal Ur Leukocyte Esterase 3+ H Urine WBC (Auto) 2542 H Urine RBC (Auto) 51 H Urine WBC Clumps (Auto) Many H Urine Bacteria Few H Ur Yeast w Hyphae Occ H Urine Yeast (Budding) Many H Urine Opiates Screen Urine Methadone Screen Ur Barbiturates Screen Ur Phencyclidine Scrn Ur Amphetamines Screen U Benzodiazepines Scrn U Oth Cocaine Metabols U Cannabinoids Screen 02/09/18 02/09/18 02/09/18 06:29 06:40 11:15 WBC RBC Hgb Hct MCV MCH MCHC RDW Plt Count MPV Neut % (Auto) Lymph % (Auto) [place] % (Auto) Eos % (Auto) Baso % (Auto) Neut # (Auto) Lymph # (Auto) [place] # (Auto) Eos # (Auto) Baso # (Auto) Neutrophils % (Manual) Lymphocytes % (Manual) Monocytes % (Manual) Eosinophils % (Manual) Platelet Estimate Hypochromasia (manual) Poikilocytosis (manual Basophilic Stippling Anisocytosis (manual) [place] Cells Puncture Site pCO2 pO2 HCO3 ABG pH ABG Total CO2 ABG O2 Saturation ABG Base Excess Yusuf Test ABG Potassium A-a O2 Difference Respiratory Index Sodium Chloride Glucose Lactate FiO2 Potassium Carbon Dioxide Anion Gap BUN Creatinine Est GFR ( Amer) Est GFR (Non-Af Amer) POC Glucose (mg/dL) 216 H 176 H Random Glucose Calcium Total Creatine Kinase 32 L CK-MB (Mass) 1.26 Troponin I 0.0650 Arterial Blood Potassium Urine Color Urine Clarity Urine pH Ur Specific [place] Urine Protein Urine Glucose (UA) Urine Ketones Urine Blood Urine Nitrate Urine Bilirubin Urine Urobilinogen Ur Leukocyte Esterase Urine WBC (Auto) Urine RBC (Auto) Urine WBC Clumps (Auto) Urine Bacteria Ur Yeast w Hyphae Urine Yeast (Budding) Urine Opiates Screen Urine Methadone Screen Ur Barbiturates Screen Ur Phencyclidine Scrn Ur Amphetamines Screen U Benzodiazepines Scrn U Oth Cocaine Metabols U Cannabinoids Screen 02/09/18 02/09/18 02/09/18 12:18 12:18 16:47 WBC 10.1 RBC 3.24 L Hgb 10.2 L Hct 31.0 L MCV 95.8 H MCH 31.6 H MCHC 33.0 RDW 20.4 H Plt Count 247 MPV 10.1 Neut % (Auto) 80.8 H Lymph % (Auto) 8.3 L [place] % (Auto) 7.2 Eos % (Auto) 2.9 Baso % (Auto) 0.8 Neut # (Auto) 8.2 H Lymph # (Auto) 0.8 L [place] # (Auto) 0.7 Eos # (Auto) 0.3 Baso # (Auto) 0.1 Neutrophils % (Manual) 86 H Lymphocytes % (Manual) 9 L Monocytes % (Manual) 4 Eosinophils % (Manual) 1 Platelet Estimate Normal Hypochromasia (manual) Slight Poikilocytosis (manual Slight Basophilic Stippling Slight Anisocytosis (manual) Slight [place] Cells Slight Puncture Site pCO2 pO2 HCO3 ABG pH ABG Total CO2 ABG O2 Saturation ABG Base Excess Yusuf Test ABG Potassium A-a O2 Difference Respiratory Index Sodium 142 Chloride 108 H Glucose Lactate FiO2 Potassium 3.6 Carbon Dioxide 25 Anion Gap 13 BUN 40 H Creatinine 1.9 H Est GFR ( Amer) 42 Est GFR (Non-Af Amer) 35 POC Glucose (mg/dL) 207 H Random Glucose 183 H Calcium 8.8 Total Creatine Kinase CK-MB (Mass) Troponin I Arterial Blood Potassium Urine Color Urine Clarity Urine pH Ur Specific [place] Urine Protein Urine Glucose (UA) Urine Ketones Urine Blood Urine Nitrate Urine Bilirubin Urine Urobilinogen Ur Leukocyte Esterase Urine WBC (Auto) Urine RBC (Auto) Urine WBC Clumps (Auto) Urine Bacteria Ur Yeast w Hyphae Urine Yeast (Budding) Urine Opiates Screen Urine Methadone Screen Ur Barbiturates Screen Ur Phencyclidine Scrn Ur Amphetamines Screen U Benzodiazepines Scrn U Oth Cocaine Metabols U Cannabinoids Screen 02/09/18 21:15 WBC RBC Hgb Hct MCV MCH MCHC RDW Plt Count MPV Neut % (Auto) Lymph % (Auto) [place] % (Auto) Eos % (Auto) Baso % (Auto) Neut # (Auto) Lymph # (Auto) [place] # (Auto) Eos # (Auto) Baso # (Auto) Neutrophils % (Manual) Lymphocytes % (Manual) Monocytes % (Manual) Eosinophils % (Manual) Platelet Estimate Hypochromasia (manual) Poikilocytosis (manual Basophilic Stippling Anisocytosis (manual) [place] Cells Puncture Site pCO2 pO2 HCO3 ABG pH ABG Total CO2 ABG O2 Saturation ABG Base Excess Yusuf Test ABG Potassium A-a O2 Difference Respiratory Index Sodium Chloride Glucose Lactate FiO2 Potassium Carbon Dioxide Anion Gap BUN Creatinine Est GFR ( Amer) Est GFR (Non-Af Amer) POC Glucose (mg/dL) 227 H Random Glucose Calcium Total Creatine Kinase CK-MB (Mass) Troponin I Arterial Blood Potassium Urine Color Urine Clarity Urine pH Ur Specific [place] Urine Protein Urine Glucose (UA) Urine Ketones Urine Blood Urine Nitrate Urine Bilirubin Urine Urobilinogen Ur Leukocyte Esterase Urine WBC (Auto) Urine RBC (Auto) Urine WBC Clumps (Auto) Urine Bacteria Ur Yeast w Hyphae Urine Yeast (Budding) Urine Opiates Screen Urine Methadone Screen Ur Barbiturates Screen Ur Phencyclidine Scrn Ur Amphetamines Screen U Benzodiazepines Scrn U Oth Cocaine Metabols U Cannabinoids Screen
[2018-02-10] MEDS: Piperacill/Tazo 2.25gm in Dex 2.25 GM/50 ML BAG IVPB SCH ×3 (00:30→16:23)
[2018-02-10] MEDS: Levothyroxine 25 MCG TAB PO SCH (05:49)
--- NOTE | 2018-02-10 06:00 | CP.PCM.CON ---
History of Present Illness - History of Present Illness History of Present Illness: Patient seen and evaluated A Fib Diastlic CHF Resume Coumadin if guiac negative Hx of GI bleed in the past CHF ([facility] management) Past Patient History - Infectious Disease Hx of Infectious Diseases: None - Tetanus Immunizations Tetanus Immunization: Unknown - Past Medical History & Family History Past Medical History?: Yes - Past Social History Smoking Status: Former Smoker - CARDIAC Hx Atrial Fibrillation: Yes Hx Congestive Heart Failure: No Hx Hypercholesterolemia: Yes Hx Hypertension: Yes - PULMONARY Hx Chronic Obstructive Pulmonary Disease (COPD): No - NEUROLOGICAL Hx Neurological Disorder: No - HEENT Hx HEENT Problems: No - RENAL Hx Chronic Kidney Disease: No - ENDOCRINE/METABOLIC Hx Hypothyroidism: No - HEMATOLOGICAL/ONCOLOGICAL Hx Human Immunodeficiency Virus (HIV): No - INTEGUMENTARY Hx Dermatological Problems: No - MUSCULOSKELETAL/RHEUMATOLOGICAL Hx Falls: Yes - GASTROINTESTINAL Hx Gastrointestinal Disorders: No - GENITOURINARY/GYNECOLOGICAL Hx Genitourinary Disorders: No - PSYCHIATRIC Hx Substance Use: No - SURGICAL HISTORY Hx Coronary Stent: Yes - ANESTHESIA Hx Anesthesia: Yes Hx Anesthesia Reactions: No Hx Malignant Hyperthermia: No Meds Allergies/Adverse Reactions: Allergies Allergy/AdvReac Type Severity Reaction Status Date / Time No Known Allergies Allergy Verified 02/08/18 17:01 - Medications Medications: Current Medications Furosemide (Lasix) 40 mg IVP DAILY [facility] Last Admin: 02/09/18 11:15 Dose: 40 mg Gabapentin (Neurontin) 100 mg PO HS [facility] Last Admin: 02/09/18 21:50 Dose: 100 mg Heparin Sodium (Porcine) (Heparin) 5,000 units SC Q8H [facility] Last Admin: 02/10/18 05:49 Dose: 5,000 units Hydralazine HCl (Apresoline) 50 mg PO Q8 [facility] Last Admin: 02/10/18 05:49 Dose: 50 mg Piperacillin Sod/Tazobactam Sod (Zosyn 2.25 Gm Iv Premix) 2.25 gm in 50 mls @ 100 mls/hr IVPB Q8H [facility]; Protocol Last Admin: 02/10/18 00:30 Dose: 100 mls/hr Insulin Human Regular (Novolin R) 0 unit SC ACHS [facility]; Protocol Last Admin: 02/09/18 21:50 Dose: Not Given Levothyroxine Sodium (Synthroid) 25 mcg PO DAILY@0630 [facility] Last Admin: 02/10/18 05:49 Dose: 25 mcg Metoprolol Tartrate (Lopressor) 100 mg PO BIDBS [facility] Last Admin: 02/09/18 18:29 Dose: Not Given Pantoprazole Sodium (Protonix Ec Tab) 20 mg PO DAILY [facility] Last Admin: 02/09/18 11:14 Dose: 20 mg Tamsulosin HCl (Flomax) 0.4 mg PO DAILY [facility] Last Admin: 02/09/18 11:14 Dose: 0.4 mg Results - Vital Signs Recent Vital Signs: Last Vital Signs Temp 98.3 F 02/09/18 15:00 Pulse 85 02/10/18 05:18 Resp 16 02/09/18 15:00 BP 114/72 02/09/18 15:00 Pulse Ox 99 02/09/18 15:00 - Labs Result Diagrams: 02/09/18 12:18 02/09/18 12:18 Labs: Laboratory Results - last 24 hr 02/09/18 02/09/18 02/09/18 06:29 06:40 11:15 WBC RBC Hgb Hct MCV MCH MCHC RDW Plt Count MPV Neut % (Auto) Lymph % (Auto) [place] % (Auto) Eos % (Auto) Baso % (Auto) Neut # (Auto) Lymph # (Auto) [place] # (Auto) Eos # (Auto) Baso # (Auto) Neutrophils % (Manual) Lymphocytes % (Manual) Monocytes % (Manual) Eosinophils % (Manual) Platelet Estimate Hypochromasia (manual) Poikilocytosis (manual Basophilic Stippling Anisocytosis (manual) Denia Cells Sodium Potassium Chloride Carbon Dioxide Anion Gap BUN Creatinine Est GFR ( Amer) Est GFR (Non-Af Amer) POC Glucose (mg/dL) 216 H 176 H Random Glucose Calcium Total Creatine Kinase 32 L CK-MB (Mass) 1.26 Troponin I 0.0650 02/09/18 02/09/18 02/09/18 12:18 12:18 16:47 WBC 10.1 RBC 3.24 L Hgb 10.2 L Hct 31.0 L MCV 95.8 H MCH 31.6 H MCHC 33.0 RDW 20.4 H Plt Count 247 MPV 10.1 Neut % (Auto) 80.8 H Lymph % (Auto) 8.3 L [place] % (Auto) 7.2 Eos % (Auto) 2.9 Baso % (Auto) 0.8 Neut # (Auto) 8.2 H Lymph # (Auto) 0.8 L [place] # (Auto) 0.7 Eos # (Auto) 0.3 Baso # (Auto) 0.1 Neutrophils % (Manual) 86 H Lymphocytes % (Manual) 9 L Monocytes % (Manual) 4 Eosinophils % (Manual) 1 Platelet Estimate Normal Hypochromasia (manual) Slight Poikilocytosis (manual Slight Basophilic Stippling Slight Anisocytosis (manual) Slight Denia Cells Slight Sodium 142 Potassium 3.6 Chloride 108 H Carbon Dioxide 25 Anion Gap 13 BUN 40 H Creatinine 1.9 H Est GFR ( Amer) 42 Est GFR (Non-Af Amer) 35 POC Glucose (mg/dL) 207 H Random Glucose 183 H Calcium 8.8 Total Creatine Kinase CK-MB (Mass) Troponin I 02/09/18 21:15 WBC RBC Hgb Hct MCV MCH MCHC RDW Plt Count MPV Neut % (Auto) Lymph % (Auto) [place] % (Auto) Eos % (Auto) Baso % (Auto) Neut # (Auto) Lymph # (Auto) [place] # (Auto) Eos # (Auto) Baso # (Auto) Neutrophils % (Manual) Lymphocytes % (Manual) Monocytes % (Manual) Eosinophils % (Manual) Platelet Estimate Hypochromasia (manual) Poikilocytosis (manual Basophilic Stippling Anisocytosis (manual) [place] Cells Sodium Potassium Chloride Carbon Dioxide Anion Gap BUN Creatinine Est GFR ( Amer) Est GFR (Non-Af Amer) POC Glucose (mg/dL) 227 H Random Glucose Calcium Total Creatine Kinase CK-MB (Mass) Troponin I
[2018-02-10 08:57] LABS: CALCIUM 8.3 mg/dl (8.6-10.4)
[2018-02-10] MEDS: (Novolin R) Insulin Human Regular 100 units/ml vial SC SCH ×4 (09:19→21:46)
[2018-02-10] MEDS: Pantoprazole 20 mg EC Tab PO SCH (09:36)
--- NOTE | 2018-02-10 10:25 | VASCLAB ---
Date of service: 02/09/2018 PROCEDURE: Lower Extremity Venous Duplex Exam. HISTORY: Swelling PRIORS: 01/17/2018, normal. TECHNIQUE: Bilateral common femoral, femoral, popliteal and posterior tibial, peroneal and great saphenous veins were evaluated. Flow was assessed with color Doppler, compressibility, assessment of phasic flow and augmentation response. Report prepared by Mark Barksdale, MINO, RVT FINDINGS: RIGHT: 1. Common Femoral Vein: 1.1. Compressibility - Fully compressible: Thrombus - None : Flow - Phasic: Augmentation -Normal: Reflux - None. 2. Femoral Vein: 2.1. Compressibility - Fully compressible: Thrombus - None : Flow - Phasic: Augmentation -Normal: Reflux - None. 3. Popliteal Vein: 3.1. Compressibility - Fully compressible: Thrombus - None : Flow - Phasic: Augmentation -Normal: Reflux - None. 4. Posterior Tibial Vein: 4.1. Compressibility - Fully compressible: Thrombus - None: Flow - Phasic: Augmentation -Normal: Reflux - None. 5. Peroneal Vein: 5.1. Unable to visualize due to swelling. 6. Great Saphenous Vein: 6.1. Compressibility - Fully compressible: Thrombus - None: Flow - Phasic: Augmentation - Normal: Reflux - None. LEFT: 1. Common Femoral Vein: 1.1. Compressibility - Fully compressible: Thrombus - None: Flow - Phasic: Augmentation -Normal: Reflux - None. 2. Femoral Vein: 2.1. Compressibility - Fully compressible: Thrombus - None: Flow - Phasic: Augmentation -Normal: Reflux - None. 3. Popliteal Vein: 3.1. Compressibility - Fully compressible: Thrombus - None : Flow - Phasic: Augmentation -Normal: Reflux - None. 4. Posterior Tibial Vein: 4.1. Compressibility - Fully compressible: Thrombus - None: Flow - Phasic: Augmentation -Normal: Reflux - None. 5. Peroneal Vein: 5.1. Compressibility - Fully compressible: Thrombus - None: Flow - Phasic: Augmentation -Normal: Reflux - None. 6. Great Saphenous Vein: 6.1. Compressibility - Fully compressible: Thrombus - None: Flow - Phasic: Augmentation - Normal: Reflux - None. OTHER FINDINGS: Right: An enlarged anechoic mass was noted in the mid-distal thigh area. Left: None significant. IMPRESSION: Right: No evidence of deep or superficial vein thrombosis of the right lower extremity, for the examined veins. Normal valve function noted of the right side. Left: No evidence of deep or superficial vein thrombosis of the left lower extremity. Normal valve function noted of the left side.
--- NOTE | 2018-02-10 13:32 | CP.PCM.PN ---
<Abelino Gudinoa - Last Filed: 02/10/18 13:29> Subjective - Date & Time of Evaluation Date of Evaluation: 02/10/18 Time of Evaluation: 13:29 - Subjective Subjective: Cardiology Follow Up Patient seen and examined at bedside. Patient is slightly arousable. ROS unattainable. Objective - Vital Signs/Intake and Output Vital Signs (last 24 hours): Temp Pulse Resp BP Pulse Ox 98.6 F 98 H 25 H 136/77 100 02/10/18 07:00 02/10/18 11:59 02/10/18 07:00 02/10/18 09:36 02/10/18 07:00 Intake and Output: 02/10/18 02/10/18 06:59 18:59 Output Total 1080 Balance -1080 - Medications Medications: Current Medications Furosemide (Lasix) 40 mg IVP DAILY [facility] Last Admin: 02/10/18 09:36 Dose: 40 mg Gabapentin (Neurontin) 100 mg PO HS [facility] Last Admin: 02/09/18 21:50 Dose: 100 mg Heparin Sodium (Porcine) (Heparin) 5,000 units SC Q8H [facility] Last Admin: 02/10/18 05:49 Dose: 5,000 units Hydralazine HCl (Apresoline) 50 mg PO Q8 [facility] Last Admin: 02/10/18 05:49 Dose: 50 mg Piperacillin Sod/Tazobactam Sod (Zosyn 2.25 Gm Iv Premix) 2.25 gm in 50 mls @ 100 mls/hr IVPB Q8H [facility]; Protocol Last Admin: 02/10/18 09:19 Dose: 100 mls/hr Insulin Human Regular (Novolin R) 0 unit SC ACHS [facility]; Protocol Last Admin: 02/10/18 09:19 Dose: 2 unit Levothyroxine Sodium (Synthroid) 25 mcg PO DAILY@0630 [facility] Last Admin: 02/10/18 05:49 Dose: 25 mcg Metoprolol Tartrate (Lopressor) 100 mg PO BIDBS [facility] Last Admin: 02/10/18 09:19 Dose: 100 mg Pantoprazole Sodium (Protonix Ec Tab) 20 mg PO DAILY [facility] Last Admin: 02/10/18 09:36 Dose: 20 mg Tamsulosin HCl (Flomax) 0.4 mg PO DAILY [facility] Last Admin: 12/14/18 09:36 Dose: 0.4 mg - Labs Labs: 02/09/18 12:18 02/10/18 08:24 PT 14.4 SECONDS (9.7-12.2) H 02/08/18 18:21 INR 1.3 02/08/18 18:21 APTT 33 SECONDS (21-34) 02/08/18 18:21 - Constitutional Appears: No Acute Distress - Head Exam Head Exam: NORMAL INSPECTION, NORMOCEPHALIC - Eye Exam Eye Exam: Normal appearance - ENT Exam ENT Exam: Mucous Membranes Dry - Respiratory Exam Respiratory Exam: Decreased Breath Sounds - Cardiovascular Exam Cardiovascular Exam: REGULAR RHYTHM - GI/Abdominal Exam GI & Abdominal Exam: Soft, Normal Bowel Sounds. absent: Distended, Tenderness - Extremities Exam Extremities Exam: Normal Inspection. absent: Pedal Edema, Tenderness - Neurological Exam Neurological Exam: Altered - Skin Skin Exam: Dry, Intact, Normal Color, Warm Assessment and Plan - Assessment and Plan (Free Text) Plan: Atrial Fibrillation Hx of GI Bleed, CVA 01/30/18 Imaging: - Venous Doppler, negative for DVT - ECHO: LVH, severe pulmonary hypertension Management: - If stool occult negative, no active bleeding, resume coumadin - Continue with Lasix 40mg IVP daily, Lopressor - TSH - WNL Case discussed with Dr. Gipson, Ivana Gudino DO, PGY2 <Jose Gipson - Last Filed: 02/10/18 20:00> Objective - Vital Signs/Intake and Output Vital Signs (last 24 hours): Temp Pulse Resp BP Pulse Ox 98 F 83 20 142/79 99 02/10/18 17:59 02/10/18 17:59 02/10/18 17:59 02/10/18 17:59 02/10/18 17:59 Intake and Output: 02/10/18 02/11/18 18:59 06:59 Output Total 1100 Balance -1100 - Medications Medications: Current Medications Furosemide (Lasix) 40 mg IVP DAILY [facility] Last Admin: 02/10/18 09:36 Dose: 40 mg Gabapentin (Neurontin) 100 mg PO HS [facility] Last Admin: 02/09/18 21:50 Dose: 100 mg Heparin Sodium (Porcine) (Heparin) 5,000 units SC Q8H [facility] Last Admin: 02/10/18 13:43 Dose: 5,000 units Hydralazine HCl (Apresoline) 50 mg PO Q8 [facility] Last Admin: 02/10/18 13:43 Dose: 50 mg Piperacillin Sod/Tazobactam Sod (Zosyn 2.25 Gm Iv Premix) 2.25 gm in 50 mls @ 100 mls/hr IVPB Q8H [facility]; Protocol Last Admin: 02/10/18 16:23 Dose: 100 mls/hr Insulin Human Regular (Novolin R) 0 unit SC ACHS [facility]; Protocol Last Admin: 02/10/18 17:54 Dose: Not Given Levothyroxine Sodium (Synthroid) 25 mcg PO DAILY@0630 [facility] Last Admin: 02/10/18 05:49 Dose: 25 mcg Metoprolol Tartrate (Lopressor) 100 mg PO BIDBS [facility] Last Admin: 02/10/18 18:25 Dose: 100 mg Pantoprazole Sodium (Protonix Ec Tab) 20 mg PO DAILY [facility] Last Admin: 02/10/18 09:36 Dose: 20 mg Tamsulosin HCl (Flomax) 0.4 mg PO DAILY [facility] Last Admin: 02/10/18 09:36 Dose: 0.4 mg - Labs Labs: 02/09/18 12:18 02/10/18 08:24 PT 14.4 SECONDS (9.7-12.2) H 02/08/18 18:21 INR 1.3 02/08/18 18:21 APTT 33 SECONDS (21-34) 02/08/18 18:21 Assessment and Plan - Assessment and Plan (Free Text) Plan: Patient seen and evaluated personally by me. Plan of care d/w the medical radiation therapist and as documented
--- NOTE | 2018-02-10 14:42 | CP.PCM.PN ---
Subjective - Date & Time of Evaluation Date of Evaluation: 02/10/18 Time of Evaluation: 09:20 - Subjective Subjective: Patient seen and examined at bedside, lying down comfortably. Afebrile and in no acute distress. Denies chest pain, fever/chills Will order repeat CXR today BUN 37, Cr 1.8, Glucose 202 on 02/10/18 Duplex Lower Extremity Scan B/L (02/09/18): No evidence of deep or superficial vein thrombosis bilaterally. Normal valve function noted on both sides. Objective - Vital Signs/Intake and Output Vital Signs (last 24 hours): Temp Pulse Resp BP Pulse Ox 98.6 F 98 H 25 H 136/77 100 02/10/18 07:00 02/10/18 11:59 02/10/18 07:00 02/10/18 09:36 02/10/18 07:00 Intake and Output: 02/10/18 02/10/18 06:59 18:59 Output Total 1080 Balance -1080 - Medications Medications: Current Medications Furosemide (Lasix) 40 mg IVP DAILY [facility] Last Admin: 02/10/18 09:36 Dose: 40 mg Gabapentin (Neurontin) 100 mg PO HS [facility] Last Admin: 02/09/18 21:50 Dose: 100 mg Heparin Sodium (Porcine) (Heparin) 5,000 units SC Q8H [facility] Last Admin: 02/10/18 13:43 Dose: 5,000 units Hydralazine HCl (Apresoline) 50 mg PO Q8 [facility] Last Admin: 02/10/18 13:43 Dose: 50 mg Piperacillin Sod/Tazobactam Sod (Zosyn 2.25 Gm Iv Premix) 2.25 gm in 50 mls @ 100 mls/hr IVPB Q8H [facility]; Protocol Last Admin: 02/10/18 09:19 Dose: 100 mls/hr Insulin Human Regular (Novolin R) 0 unit SC ACHS [facility]; Protocol Last Admin: 02/10/18 13:42 Dose: 2 unit Levothyroxine Sodium (Synthroid) 25 mcg PO DAILY@0630 [facility] Last Admin: 02/10/18 05:49 Dose: 25 mcg Metoprolol Tartrate (Lopressor) 100 mg PO BIDBS [facility] Last Admin: 02/10/18 09:19 Dose: 100 mg Pantoprazole Sodium (Protonix Ec Tab) 20 mg PO DAILY [facility] Last Admin: 02/10/18 09:36 Dose: 20 mg Tamsulosin HCl (Flomax) 0.4 mg PO DAILY [facility] Last Admin: 02/10/18 09:36 Dose: 0.4 mg - Labs Labs: 02/09/18 12:18 02/10/18 08:24 PT 14.4 SECONDS (9.7-12.2) H 02/08/18 18:21 INR 1.3 02/08/18 18:21 APTT 33 SECONDS (21-34) 02/08/18 18:21 - Head Exam Head Exam: ATRAUMATIC, NORMOCEPHALIC - ENT Exam ENT Exam: Mucous Membranes Moist - Neck Exam Neck Exam: Normal Inspection - Respiratory Exam Respiratory Exam: Rales - Cardiovascular Exam Cardiovascular Exam: REGULAR RHYTHM - GI/Abdominal Exam GI & Abdominal Exam: Soft, Normal Bowel Sounds - Extremities Exam Extremities Exam: Pedal Edema Assessment and Plan (1) Atrial fibrillation Status: Acute (2) CHF (congestive heart failure) Assessment & Plan: followup chest x-ray Continue diuretics Take off BiPAP Status: Acute (3) Renal insufficiency Status: Acute
--- NOTE | 2018-02-10 15:58 | RAD ---
Date of service: 02/10/2018 HISTORY: f/u CHF COMPARISON: 02/08/2018 FINDINGS: LUNGS: Limited portable examination due to patient rotation to the left. There is moderate pulmonary venous congestion. PLEURA: Layering pleural effusions. No pneumothorax. CARDIOVASCULAR: The heart is normal in size. Atherosclerotic aortic arch calcifications are present. OSSEOUS STRUCTURES: Within normal limits for the patient's age. VISUALIZED UPPER ABDOMEN: Normal. OTHER FINDINGS: None. IMPRESSION: Little interval change in known congestive heart failure.
[2018-02-10] MEDS ORDERED: Potassium Chloride 20 mEq/15 ml LIQ UD PO SCH (16:00)
--- NOTE | 2018-02-10 16:32 | CON ---
DATE: 02/10/2018 HISTORY OF PRESENT ILLNESS: The patient 77-year-old [place] male who was admitted to the hospital with CHF, venous insufficiency. The patient has a chronic indwelling Lord. Because of his stroke he cannot move his left arm. He is bedridden and the Lord was changed recently, for some reason they put three-way Lord. The patient has no pain, no dysuria and no lower abdominal pain. The Lord catheter functioning well. Mildly cloudy urine. Urine culture sent and is pending. PHYSICAL EXAMINATION: ABDOMEN: Soft, no flank tenderness. No kidney palpable. No suprapubic fullness or tenderness. GENITOURINARY: Lord catheter functioning well with draining. no edema and no bleeding. Testes in the scrotum. RECTAL: Rectal could not be done because the patient cannot move. IMPRESSION: Neurogenic bladder retention. PLAN: Keep the Lord in. We will wait for the urine culture. I will follow him. Melania Cabral MD
[2018-02-10 16:52] LABS: ABG ALLEN TEST POS; ARTERIAL BLOOD GAS HCO3 27.9 mmol/L (21-28); ARTERIAL BLOOD GAS HEMOGLOBIN 9.7 g/dL (11.7-17.4); ARTERIAL BLOOD GAS O2 SAT 99.9 % (95-98); ARTERIAL BLOOD GAS PCO2 38 mm/Hg (35-45); ARTERIAL BLOOD GAS PH 7.47 (7.35-7.45); ARTERIAL BLOOD GAS PO2 102 mm/Hg (80-100); ARTERIAL BLOOD GAS TCO2 28.9 mmol/L (22-28)
[2018-02-10] MEDS ORDERED: Potassium Chloride 20 mEq/15 ml LIQ UD PO STA (17:48)
--- NOTE | 2018-02-10 23:48 | CP.PCM.PN ---
Subjective - Subjective Subjective: dictated Objective - Vital Signs/Intake and Output Vital Signs (last 24 hours): Temp Pulse Resp BP Pulse Ox 97.8 F 75 20 157/98 H 100 02/10/18 20:16 02/10/18 20:30 02/10/18 20:16 02/10/18 20:16 02/10/18 20:16 Intake and Output: 02/10/1818 18:59 06:59 Output Total 1100 800 Balance -1100 -800 - Medications Medications: Current Medications Furosemide (Lasix) 40 mg IVP DAILY [facility] Last Admin: 02/10/18 09:36 Dose: 40 mg Gabapentin (Neurontin) 100 mg PO HS [facility] Last Admin: 02/10/18 21:51 Dose: 100 mg Heparin Sodium (Porcine) (Heparin) 5,000 units SC Q8H [facility] Last Admin: 02/10/18 21:51 Dose: 5,000 units Hydralazine HCl (Apresoline) 50 mg PO Q8 [facility] Last Admin: 02/10/18 21:49 Dose: 50 mg Piperacillin Sod/Tazobactam Sod (Zosyn 2.25 Gm Iv Premix) 2.25 gm in 50 mls @ 100 mls/hr IVPB Q8H [facility]; Protocol Last Admin: 02/10/18 16:23 Dose: 100 mls/hr Insulin Human Regular (Novolin R) 0 unit SC ACHS [facility]; Protocol Last Admin: 02/10/18 21:46 Dose: Not Given Levothyroxine Sodium (Synthroid) 25 mcg PO DAILY@0630 [facility] Last Admin: 02/10/18 05:49 Dose: 25 mcg Metoprolol Tartrate (Lopressor) 100 mg PO BIDBS [facility] Last Admin: 02/10/18 18:25 Dose: 100 mg Pantoprazole Sodium (Protonix Ec Tab) 20 mg PO DAILY [facility] Last Admin: 02/10/18 09:36 Dose: 20 mg Tamsulosin HCl (Flomax) 0.4 mg PO DAILY [facility] Last Admin: 02/10/18 09:36 Dose: 0.4 mg - Labs Labs: 02/09/18 12:18 02/10/18 08:24 PT 14.4 SECONDS (9.7-12.2) H 02/08/18 18:21 INR 1.3 02/08/18 18:21 APTT 33 SECONDS (21-34) 02/08/18 18:21
[2018-02-11] MEDS: Piperacill/Tazo 2.25gm in Dex 2.25 GM/50 ML BAG IVPB SCH ×3 (00:10→16:18)
--- NOTE | 2018-02-11 02:47 | PN ---
DATE: 02/10/2018 SUBJECTIVE: The patient is less short of breath, less cough, less wheezing. He is afebrile. PHYSICAL EXAMINATION: VITAL SIGNS: Blood pressure 136/77, pulse , respiratory rate 20, temperature 98. LUNGS: Decreased air entry. Positive rales and rhonchi. CARDIOVASCULAR SYSTEM: S1 and S2, regular. ABDOMEN: Soft. ASSESSMENT: 1. Congestive heart failure exacerbation. 2. Hyperlipidemia. 3. Hypertension. 4. Atrial fibrillation. PLAN: Continue diuretics and monitor the patient. Kevin Osborne MD
--- NOTE | 2018-02-11 06:10 | HP ---
CHIEF COMPLIANT: Shortness of breath. HISTORY OF PRESENT ILLNESS: This is a 77-year-old male with past medical history of atrial fibrillation, stroke, hypertension, hyperlipidemia. The patient was send in from emergency room because of elevated troponin level and shortness of breath that started on the day of admission. The patient was also noted to have EKG changes, and the patient had atrial fibrillation. The patient has been experiencing shortness of breath for few days in the retirement. The patient is weak, drowsy, lethargic, is on oxygen and he is not able to give information; however, the patient is known to me. The patient was evaluated by [facility] in [place] on 01/30/2018, when he went in for . He underwent embolectomy from his cranial arteries, and the patient was transferred back to the [facility] with Eliquis. The patient came back with shortness of breath. He has dyspnea on exertion, dyspnea at rest, orthopnea. He has cough. No fever, no chills. He denies any history of polyuria, polydipsia, polyphagia. He denies any history of hematuria or pyuria. PAST MEDICAL HISTORY: Hypertension, CHF, stroke with embolectomy, atrial fibrillation, and hyperlipidemia. SOCIAL HISTORY: Ex-smoker, ex-ETOH user. CURRENT MEDICATIONS: At long term facility, he is on Percocet, hydralazine, Protonix, Lopressor, Synthroid, Novolin, Neurontin, Lasix, and Eliquis. PHYSICAL EXAMINATION: GENERAL: An elderly male, on respiratory distress, on BiPAP. VITAL SIGNS: Blood pressure 114/72, pulse 58, respiratory rate 16, temperature 98.3. SKIN: No rashes. No bruises. No purpura. HEENT: Atraumatic, normocephalic. Negative pallor. Negative jaundice. Extraocular movements are intact. NECK: Supple. No JVD. CHEST WALL: Bilateral symmetrical expansion. LUNGS: Bilaterally expiratory and inspiratory rales. No rhonchi. Decreased air entry. CARDIOVASCULAR SYSTEM: PMI not localized. S1 and S2 irregularly irregular. A 2/6 ejection systolic murmur at the apex. ABDOMEN: Soft, nontender. Bowel sounds are positive. RECTAL: Deferred. PELVIC: Deferred. He is in respiratory distress. EXTREMITIES: No clubbing, cyanosis, +1 pitting edema. CENTRAL NERVOUS SYSTEM: Awake, alert, oriented x3; on BiPAP, unable to talk. ASSESSMENT: 1. Acute exacerbation of congestive heart failure, most likely it is diastolic heart failure. 2. Atrial fibrillation. 3. Hypertension. 4. Hypokalemia. PLAN: Continue neurology checks. Fall, seizure precaution. Monitor the patient. Kevin Osborne MD
[2018-02-11 06:43] LABS: BASO # 0.1 K/uL (0.0-0.2); BASO % 1.3 % (0.0-2.0); EOS # 0.6 K/uL (0.0-0.7); EOS % 6.9 % (0.0-4.0); LYMPH % 11.3 % (20.0-40.0); MEAN CORPUSCULAR HEMOGLOBIN 31.8 pg (27.0-31.0); MEAN CORPUSCULAR HGB CONC 33.2 g/dL (33.0-37.0); MONO # 0.6 K/uL (0.0-0.8); MONO % 6.3 % (0.0-10.0); NEUT # 6.5 K/uL (1.8-7.0); NEUT % 74.2 % (50.0-75.0); RBC 3.13 Mil/uL (4.40-5.90); RED CELL DISTRIBUTION WIDTH 20.4 % (11.5-14.5); WHITE BLOOD COUNT 8.8 K/uL (4.8-10.8)
[2018-02-11] MEDS: Levothyroxine 25 MCG TAB PO SCH (06:44)
[2018-02-11 06:53] LABS: CALCIUM 8.5 mg/dl (8.6-10.4)
[2018-02-11] MEDS: (Novolin R) Insulin Human Regular 100 units/ml vial SC SCH ×4 (08:13→22:30)
[2018-02-11] MEDS: Pantoprazole 20 mg EC Tab PO SCH (10:24)
--- NOTE | 2018-02-11 14:12 | CP.PCM.PN ---
Subjective - Date & Time of Evaluation Date of Evaluation: 02/11/18 Time of Evaluation: 12:55 - Subjective Subjective: patient seen and examined Patient remains on BiPAP Still complaining of shortness of breath Afebrile Objective - Vital Signs/Intake and Output Vital Signs (last 24 hours): Temp Pulse Resp BP Pulse Ox 98.4 F 92 H 18 121/68 100 02/11/18 09:09 02/11/18 11:56 02/11/18 09:09 02/11/18 10:24 02/11/18 09:09 Intake and Output: 02/11/18 02/11/18 06:59 18:59 Intake Total 250 Output Total 1000 Balance -750 - Medications Medications: Current Medications Furosemide (Lasix) 40 mg IVP DAILY [facility] Last Admin: 02/11/18 10:24 Dose: 40 mg Gabapentin (Neurontin) 100 mg PO HS [facility] Last Admin: 02/10/18 21:51 Dose: 100 mg Heparin Sodium (Porcine) (Heparin) 5,000 units SC Q8H [facility] Last Admin: 02/11/18 13:35 Dose: 5,000 units Hydralazine HCl (Apresoline) 50 mg PO Q8 [facility] Last Admin: 02/11/18 13:35 Dose: 50 mg Piperacillin Sod/Tazobactam Sod (Zosyn 2.25 Gm Iv Premix) 2.25 gm in 50 mls @ 100 mls/hr IVPB Q8H [facility]; Protocol Last Admin: 02/11/18 08:45 Dose: 100 mls/hr Insulin Human Regular (Novolin R) 0 unit SC ACHS [facility]; Protocol Last Admin: 02/11/18 12:12 Dose: 1 unit Levothyroxine Sodium (Synthroid) 25 mcg PO DAILY@0630 [facility] Last Admin: 02/11/18 06:44 Dose: 25 mcg Metoprolol Tartrate (Lopressor) 100 mg PO BIDBS [facility] Last Admin: 02/11/18 08:32 Dose: 100 mg Pantoprazole Sodium (Protonix Ec Tab) 20 mg PO DAILY [facility] Last Admin: 02/11/18 10:24 Dose: 20 mg Tamsulosin HCl (Flomax) 0.4 mg PO DAILY [facility] Last Admin: 02/11/18 10:24 Dose: 0.4 mg - Labs Labs: 02/11/18 06:22 02/11/18 06:22 PT 14.4 SECONDS (9.7-12.2) H 02/08/18 18:21 INR 1.3 02/08/18 18:21 APTT 33 SECONDS (21-34) 02/08/18 18:21 - Head Exam Head Exam: ATRAUMATIC, NORMOCEPHALIC - ENT Exam ENT Exam: Mucous Membranes Moist - Neck Exam Neck Exam: Normal Inspection - Respiratory Exam Respiratory Exam: Rales - Cardiovascular Exam Cardiovascular Exam: REGULAR RHYTHM - GI/Abdominal Exam GI & Abdominal Exam: Soft, Normal Bowel Sounds Assessment and Plan (1) CHF (congestive heart failure) Assessment & Plan: chest x-ray slight improvement Continue diuretics Continue BiPAP Azithromycin and Zosyn Status: Acute (2) Atrial fibrillation Status: Acute (3) Renal insufficiency Status: Acute
[2018-02-11] MEDS: Azithromycin 500 MG in Sodium Chloride 0.9% 250 ML IVPB SCH (14:54)
--- NOTE | 2018-02-11 19:13 | CP.PCM.PN ---
Subjective - Subjective Subjective: dictated Objective - Vital Signs/Intake and Output Vital Signs (last 24 hours): Temp Pulse Resp BP Pulse Ox 98.1 F 83 20 120/77 97 02/11/18 17:27 02/11/18 17:27 02/11/18 17:27 02/11/18 17:27 02/11/18 17:27 Intake and Output: 02/11/1818 18:59 06:59 Intake Total 600 Output Total 900 Balance -300 - Medications Medications: Current Medications Furosemide (Lasix) 40 mg IVP DAILY [facility] Last Admin: 02/11/18 10:24 Dose: 40 mg Gabapentin (Neurontin) 100 mg PO HS [facility] Last Admin: 02/10/18 21:51 Dose: 100 mg Heparin Sodium (Porcine) (Heparin) 5,000 units SC Q8H [facility] Last Admin: 02/11/18 13:35 Dose: 5,000 units Hydralazine HCl (Apresoline) 50 mg PO Q8 [facility] Last Admin: 02/11/18 13:35 Dose: 50 mg Piperacillin Sod/Tazobactam Sod (Zosyn 2.25 Gm Iv Premix) 2.25 gm in 50 mls @ 100 mls/hr IVPB Q8H [facility]; Protocol Last Admin: 02/11/18 16:18 Dose: 100 mls/hr Azithromycin 500 mg/ Sodium (Chloride) 250 mls @ 250 mls/hr IVPB DAILY [facility]; Protocol Last Admin: 02/11/18 14:54 Dose: 250 mls/hr Insulin Human Regular (Novolin R) 0 unit SC ACHS [facility]; Protocol Last Admin: 02/11/18 18:03 Dose: 1 unit Levothyroxine Sodium (Synthroid) 25 mcg PO DAILY@0630 [facility] Last Admin: 02/11/18 06:44 Dose: 25 mcg Metoprolol Tartrate (Lopressor) 100 mg PO BIDBS [facility] Last Admin: 02/11/18 18:03 Dose: 100 mg Pantoprazole Sodium (Protonix Ec Tab) 20 mg PO DAILY [facility] Last Admin: 02/11/18 10:24 Dose: 20 mg Tamsulosin HCl (Flomax) 0.4 mg PO DAILY [facility] Last Admin: 02/11/18 10:24 Dose: 0.4 mg - Labs Labs: 02/11/18 06:22 02/11/18 06:22 PT 14.4 SECONDS (9.7-12.2) H 02/08/18 18:21 INR 1.3 02/08/18 18:21 APTT 33 SECONDS (21-34) 02/08/18 18:21
--- NOTE | 2018-02-11 23:59 | PN ---
DATE: 02/11/2018 SUBJECTIVE: The patient remains on BiPAP. He is less short of breath, less cough, less wheezing. His BiPAP showed normal pH and normal pCO2. No fever. No chills. PHYSICAL EXAMINATION VITAL SIGNS: Blood pressure 120/77, pulse , respiratory rate 20, temperature 98.1. LUNGS: Bilateral decreased air entry. Scattered rales. CARDIOVASCULAR SYSTEM: S1 and S2 regular. ABDOMEN: Soft. ASSESSMENT: 1. Exacerbation of congestive heart failure, diastolic heart failure. 2. Chronic obstructive pulmonary disease. 3. Hypertension. 4. Cerebral atherosclerosis. PLAN: Continue current medication. Monitor the patient. Kevin Osborne MD
[2018-02-12] MEDS: Piperacill/Tazo 2.25gm in Dex 2.25 GM/50 ML BAG IVPB SCH ×3 (00:18→18:28)
[2018-02-12 05:31] LABS: OXYCODONE SCREEN negative
[2018-02-12] MEDS: Levothyroxine 25 MCG TAB PO SCH (05:34)
[2018-02-12] MEDS: (Novolin R) Insulin Human Regular 100 units/ml vial SC SCH ×4 (08:01→22:00)
[2018-02-12 08:53] LABS: BASO # 0.1 K/uL (0.0-0.2); EOS # 0.6 K/uL (0.0-0.7); HEMOGLOBIN 9.8 g/dL (12.0-18.0); LYMPH # 0.9 K/uL (1.0-4.3); LYMPH % 11.6 % (20.0-40.0); MEAN CELL VOLUME 96.4 fL (80.0-94.0); MEAN CORPUSCULAR HEMOGLOBIN 31.6 pg (27.0-31.0); MEAN CORPUSCULAR HGB CONC 32.7 g/dL (33.0-37.0); MEAN PLATELET VOLUME 10.1 fL (7.2-11.7); MONO # 0.5 K/uL (0.0-0.8); MONO % 6.1 % (0.0-10.0); NEUT # 5.9 K/uL (1.8-7.0); NEUT % 74.3 % (50.0-75.0); RBC 3.09 Mil/uL (4.40-5.90); RED CELL DISTRIBUTION WIDTH 19.6 % (11.5-14.5); WHITE BLOOD COUNT 7.9 K/uL (4.8-10.8)
[2018-02-12 09:01] LABS: ALB/GLOB RATIO 0.9 (1.0-2.1); ALBUMIN 2.8 g/dL (3.5-5.0); CALCIUM 8.4 mg/dl (8.6-10.4)
[2018-02-12] MEDS: Azithromycin 500 MG in Sodium Chloride 0.9% 250 ML IVPB SCH (10:04)
[2018-02-12] MEDS: Pantoprazole 20 mg EC Tab PO SCH (10:05)
--- NOTE | 2018-02-12 11:11 | CP.PCM.PN ---
Subjective - Date & Time of Evaluation Date of Evaluation: 02/11/18 Time of Evaluation: 16:20 - Subjective Subjective: Patient seen and examined at bedside. Not in distress Physical Examination - Constitutional Appears: No Acute Distress - Head Exam Head Exam: NORMAL INSPECTION, NORMOCEPHALIC - Eye Exam Eye Exam: Normal appearance - ENT Exam ENT Exam: Mucous Membranes Dry - Respiratory Exam Respiratory Exam: Decreased Breath Sounds - Cardiovascular Exam Cardiovascular Exam: REGULAR RHYTHM - GI/Abdominal Exam GI & Abdominal Exam: Soft, Normal Bowel Sounds. absent: Distended, Tenderness - Extremities Exam Extremities Exam: Normal Inspection. absent: Pedal Edema, Tenderness - Neurological Exam Neurological Exam: Altered - Skin Skin Exam: Dry, Intact, Normal Color, Warm Assessment and Plan - Assessment and Plan (Free Text) Plan: Atrial Fibrillation Hx of GI Bleed, CVA 01/30/18 Imaging: - Venous Doppler, negative for DVT - ECHO: LVH, severe pulmonary hypertension Management: - If stool occult negative, no active bleeding, resume coumadin - Continue with Lasix 40mg IVP daily, Lopressor - TSH - WNL Objective - Vital Signs/Intake and Output Vital Signs (last 24 hours): Temp Pulse Resp BP Pulse Ox 97.9 F 88 20 154/81 H 97 02/12/18 09:16 02/12/18 10:28 02/12/18 09:16 02/12/18 10:05 02/12/18 09:16 Intake and Output: 02/12/18 02/12/18 06:59 18:59 Intake Total 500 Output Total 700 Balance -200 - Medications Medications: Current Medications Furosemide (Lasix) 40 mg IVP DAILY [facility] Last Admin: 02/12/18 10:05 Dose: 40 mg Gabapentin (Neurontin) 100 mg PO HS [facility] Last Admin: 02/11/18 21:04 Dose: 100 mg Heparin Sodium (Porcine) (Heparin) 5,000 units SC Q8H [facility] Last Admin: 02/12/18 05:34 Dose: 5,000 units Hydralazine HCl (Apresoline) 50 mg PO Q8 [facility] Last Admin: 02/12/18 05:33 Dose: 50 mg Piperacillin Sod/Tazobactam Sod (Zosyn 2.25 Gm Iv Premix) 2.25 gm in 50 mls @ 100 mls/hr IVPB Q8H [facility]; Protocol Last Admin: 02/12/18 06:49 Dose: 100 mls/hr Azithromycin 500 mg/ Sodium (Chloride) 250 mls @ 250 mls/hr IVPB DAILY [facility]; Protocol Last Admin: 02/12/18 10:04 Dose: 250 mls/hr Insulin Human Regular (Novolin R) 0 unit SC ACHS [facility]; Protocol Last Admin: 02/12/18 08:01 Dose: 1 unit Levothyroxine Sodium (Synthroid) 25 mcg PO DAILY@0630 [facility] Last Admin: 02/12/18 05:34 Dose: 25 mcg Metoprolol Tartrate (Lopressor) 100 mg PO BIDBS [facility] Last Admin: 02/12/18 06:49 Dose: 100 mg Pantoprazole Sodium (Protonix Ec Tab) 20 mg PO DAILY [facility] Last Admin: 02/12/18 10:05 Dose: 20 mg Tamsulosin HCl (Flomax) 0.4 mg PO DAILY [facility] Last Admin: 02/12/18 10:05 Dose: 0.4 mg - Labs Labs: 02/12/18 08:33 02/12/18 08:33 PT 14.4 SECONDS (9.7-12.2) H 02/08/18 18:21 INR 1.3 02/08/18 18:21 APTT 33 SECONDS (21-34) 02/08/18 18:21
--- NOTE | 2018-02-12 13:16 | CP.PCM.PN ---
Subjective - Subjective Subjective: dictated Objective - Vital Signs/Intake and Output Vital Signs (last 24 hours): Temp Pulse Resp BP Pulse Ox 97.9 F 88 20 154/81 H 97 02/12/18 09:16 02/12/18 10:28 02/12/18 09:16 02/12/18 10:05 02/12/18 09:16 Intake and Output: 02/12/18 02/12/18 06:59 18:59 Intake Total 500 Output Total 700 Balance -200 - Medications Medications: Current Medications Furosemide (Lasix) 40 mg IVP DAILY [facility] Last Admin: 02/12/18 10:05 Dose: 40 mg Gabapentin (Neurontin) 100 mg PO HS [facility] Last Admin: 02/11/18 21:04 Dose: 100 mg Heparin Sodium (Porcine) (Heparin) 5,000 units SC Q8H [facility] Last Admin: 02/12/18 05:34 Dose: 5,000 units Hydralazine HCl (Apresoline) 50 mg PO Q8 [facility] Last Admin: 02/12/18 05:33 Dose: 50 mg Piperacillin Sod/Tazobactam Sod (Zosyn 2.25 Gm Iv Premix) 2.25 gm in 50 mls @ 100 mls/hr IVPB Q8H [facility]; Protocol Last Admin: 02/12/18 06:49 Dose: 100 mls/hr Azithromycin 500 mg/ Sodium (Chloride) 250 mls @ 250 mls/hr IVPB DAILY [facility]; Protocol Last Admin: 02/12/18 10:04 Dose: 250 mls/hr Insulin Human Regular (Novolin R) 0 unit SC ACHS [facility]; Protocol Last Admin: 02/12/18 12:24 Dose: 1 unit Levothyroxine Sodium (Synthroid) 25 mcg PO DAILY@0630 [facility] Last Admin: 02/12/18 05:34 Dose: 25 mcg Metoprolol Tartrate (Lopressor) 100 mg PO BIDBS [facility] Last Admin: 02/12/18 06:49 Dose: 100 mg Pantoprazole Sodium (Protonix Ec Tab) 20 mg PO DAILY [facility] Last Admin: 02/12/18 10:05 Dose: 20 mg Tamsulosin HCl (Flomax) 0.4 mg PO DAILY [facility] Last Admin: 02/12/18 10:05 Dose: 0.4 mg - Labs Labs: 02/12/18 08:33 02/12/18 08:33 PT 14.4 SECONDS (9.7-12.2) H 02/08/18 18:21 INR 1.3 02/08/18 18:21 APTT 33 SECONDS (21-34) 02/08/18 18:21
--- NOTE | 2018-02-12 13:39 | CP.PCM.PN ---
Subjective - Date & Time of Evaluation Date of Evaluation: 02/12/18 Time of Evaluation: 13:38 - Subjective Subjective: Pulmonary Follow up, Covering Dr Gómez The patient was Seen/interviewed and examined by me at the bedside, Medical records reviewed and Management issues were discussed and formulated with the house staff. Events reviewed Comfortable, pain controlled Afebrile Still complaining of SOB, but improved Denies chest pain, cough or fever/chills Continue Antibiotics, BIPAP, Diuresis and nebulizer treatment. Objective - Vital Signs/Intake and Output Vital Signs (last 24 hours): Temp Pulse Resp BP Pulse Ox 97.9 F 88 20 154/81 H 97 02/12/18 09:16 02/12/18 10:28 02/12/18 09:16 02/12/18 10:05 02/12/18 09:16 Intake and Output: 02/12/18 02/12/18 06:59 18:59 Intake Total 500 Output Total 700 Balance -200 - Medications Medications: Current Medications Furosemide (Lasix) 40 mg IVP DAILY [facility] Last Admin: 02/12/18 10:05 Dose: 40 mg Gabapentin (Neurontin) 100 mg PO HS [facility] Last Admin: 02/11/18 21:04 Dose: 100 mg Heparin Sodium (Porcine) (Heparin) 5,000 units SC Q8H [facility] Last Admin: 02/12/18 05:34 Dose: 5,000 units Hydralazine HCl (Apresoline) 50 mg PO Q8 [facility] Last Admin: 02/12/18 05:33 Dose: 50 mg Piperacillin Sod/Tazobactam Sod (Zosyn 2.25 Gm Iv Premix) 2.25 gm in 50 mls @ 100 mls/hr IVPB Q8H [facility]; Protocol Last Admin: 02/12/18 06:49 Dose: 100 mls/hr Azithromycin 500 mg/ Sodium (Chloride) 250 mls @ 250 mls/hr IVPB DAILY [facility]; Protocol Last Admin: 02/12/18 10:04 Dose: 250 mls/hr Insulin Human Regular (Novolin R) 0 unit SC ACHS [facility]; Protocol Last Admin: 02/12/18 12:24 Dose: 1 unit Levothyroxine Sodium (Synthroid) 25 mcg PO DAILY@0630 [facility] Last Admin: 02/12/18 05:34 Dose: 25 mcg Metoprolol Tartrate (Lopressor) 100 mg PO BIDBS [facility] Last Admin: 02/12/18 06:49 Dose: 100 mg Pantoprazole Sodium (Protonix Ec Tab) 20 mg PO DAILY [facility] Last Admin: 02/12/18 10:05 Dose: 20 mg Tamsulosin HCl (Flomax) 0.4 mg PO DAILY [facility] Last Admin: 02/12/18 10:05 Dose: 0.4 mg - Labs Labs: 02/12/18 08:33 02/12/18 08:33 PT 14.4 SECONDS (9.7-12.2) H 02/08/18 18:21 INR 1.3 02/08/18 18:21 APTT 33 SECONDS (21-34) 02/08/18 18:21
--- NOTE | 2018-02-12 22:44 | CP.PCM.PN ---
Subjective - Date & Time of Evaluation Date of Evaluation: 02/12/18 Time of Evaluation: 14:15 - Subjective Subjective: Patient with no cardiac events Improved breathing and not in distress Objective - Vital Signs/Intake and Output Vital Signs (last 24 hours): Temp Pulse Resp BP Pulse Ox 97.9 F 82 20 163/98 H 97 02/12/18 09:16 18 19:39 02/12/18 09:16 02/12/18 13:53 02/12/18 09:16 Intake and Output: 02/12/18 02/13/18 18:59 06:59 Intake Total 720 Output Total 600 Balance 120 - Medications Medications: Current Medications Furosemide (Lasix) 40 mg IVP DAILY [facility] Last Admin: 02/12/18 10:05 Dose: 40 mg Gabapentin (Neurontin) 100 mg PO HS [facility] Last Admin: 02/12/18 21:38 Dose: 100 mg Hydralazine HCl (Apresoline) 50 mg PO Q8 [facility] Last Admin: 02/12/18 21:37 Dose: 50 mg Piperacillin Sod/Tazobactam Sod (Zosyn 2.25 Gm Iv Premix) 2.25 gm in 50 mls @ 100 mls/hr IVPB Q8H [facility]; Protocol Last Admin: 02/12/18 18:28 Dose: 100 mls/hr Azithromycin 500 mg/ Sodium (Chloride) 250 mls @ 250 mls/hr IVPB DAILY [facility]; Protocol Last Admin: 02/12/18 10:04 Dose: 250 mls/hr Insulin Human Regular (Novolin R) 0 unit SC ACHS [facility]; Protocol Last Admin: 02/12/18 18:27 Dose: 1 unit Levothyroxine Sodium (Synthroid) 25 mcg PO DAILY@0630 [facility] Last Admin: 02/12/18 05:34 Dose: 25 mcg Metoprolol Tartrate (Lopressor) 100 mg PO BIDBS [facility] Last Admin: 02/12/18 18:29 Dose: 100 mg Pantoprazole Sodium (Protonix Ec Tab) 20 mg PO DAILY [facility] Last Admin: 02/12/18 10:05 Dose: 20 mg Tamsulosin HCl (Flomax) 0.4 mg PO DAILY [facility] Last Admin: 02/12/18 10:05 Dose: 0.4 mg - Labs Labs: 02/12/18 08:33 02/12/18 08:33 PT 14.4 SECONDS (9.7-12.2) H 02/08/18 18:21 INR 1.3 02/08/18 18:21 APTT 33 SECONDS (21-34) 02/08/18 18:21
[2018-02-13] MEDS: Piperacill/Tazo 2.25gm in Dex 2.25 GM/50 ML BAG IVPB SCH ×4 (00:03→22:52)
--- NOTE | 2018-02-13 00:42 | PN ---
DATE: 02/12/2018 SUBJECTIVE: Mr. Sullivan is less short of breath, less cough, less wheezing. PHYSICAL EXAMINATION: VITAL SIGNS: He is afebrile. Blood pressure 163/98, pulse 80, respiratory rate 20, and temperature 98. LUNGS: Decreased air entry. CARDIOVASCULAR SYSTEM: S1 and S2, regular. ABDOMEN: Soft. ASSESSMENT: 1. Exacerbation of diastolic heart failure. 2. Respiratory failure. 3. Hypertension. PLAN: Continue oxygen, diuretics. Intake and output. Monitor the patient. Kevin Osborne MD
[2018-02-13] MEDS: Levothyroxine 25 MCG TAB PO SCH (06:01)
[2018-02-13] MEDS: (Novolin R) Insulin Human Regular 100 units/ml vial SC SCH ×4 (08:18→22:59)
[2018-02-13] MEDS: Pantoprazole 20 mg EC Tab PO SCH (10:12)
[2018-02-13] MEDS: Fluconazole IV 200mg/100 ml NS 100 MG in Premixed IV 1 EA IVPB SCH (11:01)
[2018-02-13 11:25] LABS: ALB/GLOB RATIO 0.9 (1.0-2.1); ALBUMIN 2.8 g/dL (3.5-5.0); BILIRUBIN,DIRECT 0.6 mg/dL (0.0-0.4); CALCIUM 8.4 mg/dl (8.6-10.4)
[2018-02-13] MEDS ORDERED: Potassium Chloride 20 mEq/15 ml LIQ UD PO ONE (11:45)
--- NOTE | 2018-02-13 13:49 | CP.PCM.PN ---
Subjective - Date & Time of Evaluation Date of Evaluation: 02/13/18 Time of Evaluation: 10:20 - Subjective Subjective: Patient seen and examined at bedside, lying down comfortably. Afebrile Denies chest pain, fever/chills Still complains of SOB CXR (02/10/18): Little interval change in known CHF BUN 29, Cr 1.9, Glucose 180 on 02/13/18 Continue oxygen, diuretics, antibiotics, nebulizer Objective - Vital Signs/Intake and Output Vital Signs (last 24 hours): Temp Pulse Resp BP Pulse Ox 97.8 F 77 20 103/66 100 02/13/18 07:00 02/13/18 12:30 02/13/18 07:00 02/13/18 10:13 02/13/18 07:00 Intake and Output: 02/13/18 02/13/18 06:59 18:59 Intake Total 400 Output Total 300 Balance 100 - Medications Medications: Current Medications Furosemide (Lasix) 40 mg IVP DAILY [facility] Last Admin: 02/13/18 10:13 Dose: 40 mg Gabapentin (Neurontin) 100 mg PO HS [facility] Last Admin: 02/12/18 21:38 Dose: 100 mg Hydralazine HCl (Apresoline) 50 mg PO Q8 [facility] Last Admin: 02/13/18 06:01 Dose: 50 mg Piperacillin Sod/Tazobactam Sod (Zosyn 2.25 Gm Iv Premix) 2.25 gm in 50 mls @ 100 mls/hr IVPB Q8H [facility]; Protocol Last Admin: 02/13/18 06:47 Dose: 100 mls/hr Fluconazole 100 mg/ (Miscellaneous) 50 mls @ 100 mls/hr IVPB DAILY [facility]; Protocol Last Admin: 02/13/18 11:01 Dose: 100 mls/hr Insulin Human Regular (Novolin R) 0 unit SC ACHS [facility]; Protocol Last Admin: 02/13/18 12:21 Dose: 1 unit Levothyroxine Sodium (Synthroid) 25 mcg PO DAILY@0630 [facility] Last Admin: 02/13/18 06:01 Dose: 25 mcg Metoprolol Tartrate (Lopressor) 100 mg PO BIDBS [facility] Last Admin: 02/13/18 08:19 Dose: 100 mg Pantoprazole Sodium (Protonix Ec Tab) 20 mg PO DAILY [facility] Last Admin: 02/13/18 10:12 Dose: 20 mg Tamsulosin HCl (Flomax) 0.4 mg PO DAILY [facility] Last Admin: 02/13/18 10:12 Dose: 0.4 mg - Labs Labs: 02/12/18 08:33 02/13/18 10:58 PT 14.4 SECONDS (9.7-12.2) H 02/08/18 18:21 INR 1.3 02/08/18 18:21 APTT 33 SECONDS (21-34) 02/08/18 18:21 - Head Exam Head Exam: ATRAUMATIC, NORMOCEPHALIC - ENT Exam ENT Exam: Mucous Membranes Moist - Neck Exam Neck Exam: Normal Inspection - Respiratory Exam Respiratory Exam: Decreased Breath Sounds - Cardiovascular Exam Cardiovascular Exam: REGULAR RHYTHM Assessment and Plan (1) CHF (congestive heart failure) Status: Acute (2) Atrial fibrillation Status: Acute (3) Renal insufficiency Status: Acute
[2018-02-13] MEDS ORDERED: Magnesium Hydroxide Susp 30 ml UD PO ONE (17:59)
--- NOTE | 2018-02-13 19:57 | CP.PCM.PN ---
Subjective - Date & Time of Evaluation Date of Evaluation: 02/13/18 Time of Evaluation: 16:20 - Subjective Subjective: Patient seen and examined at bedside. Denies chest pain and dyspnea Physical Examination - Constitutional Appears: No Acute Distress - Head Exam Head Exam: NORMAL INSPECTION, NORMOCEPHALIC - Eye Exam Eye Exam: Normal appearance - ENT Exam ENT Exam: Mucous Membranes Dry - Respiratory Exam Respiratory Exam: Decreased Breath Sounds - Cardiovascular Exam Cardiovascular Exam: REGULAR RHYTHM - GI/Abdominal Exam GI & Abdominal Exam: Soft, Normal Bowel Sounds. absent: Distended, Tenderness - Extremities Exam Extremities Exam: Normal Inspection. absent: Pedal Edema, Tenderness - Neurological Exam Neurological Exam: Altered - Skin Skin Exam: Dry, Intact, Normal Color, Warm Assessment and Plan - Assessment and Plan (Free Text) Plan: Atrial Fibrillation Hx of GI Bleed, CVA 01/30/18 Imaging: - Venous Doppler, negative for DVT - ECHO: LVH, severe pulmonary hypertension Management: - If stool occult negative, no active bleeding, resume coumadin - Continue with Lasix 40mg IVP daily, Lopressor - TSH - WNL Objective - Vital Signs/Intake and Output Vital Signs (last 24 hours): Temp Pulse Resp BP Pulse Ox 98 F 79 20 141/83 97 02/13/18 15:30 02/13/18 16:58 02/13/18 15:30 02/13/18 15:30 02/13/18 15:30 Intake and Output: 02/13/18 02/14/18 18:59 06:59 Intake Total 500 Output Total 100 Balance 400 - Medications Medications: Current Medications Furosemide (Lasix) 40 mg IVP DAILY [facility] Last Admin: 02/13/18 10:13 Dose: 40 mg Gabapentin (Neurontin) 100 mg PO HS [facility] Last Admin: 02/12/18 21:38 Dose: 100 mg Hydralazine HCl (Apresoline) 50 mg PO Q8 [facility] Last Admin: 02/13/18 14:12 Dose: 50 mg Piperacillin Sod/Tazobactam Sod (Zosyn 2.25 Gm Iv Premix) 2.25 gm in 50 mls @ 100 mls/hr IVPB Q8H [facility]; Protocol Last Admin: 02/13/18 16:44 Dose: 100 mls/hr Fluconazole 100 mg/ (Miscellaneous) 50 mls @ 100 mls/hr IVPB DAILY [facility]; Protocol Last Admin: 02/13/18 11:01 Dose: 100 mls/hr Insulin Human Regular (Novolin R) 0 unit SC ACHS [facility]; Protocol Last Admin: 02/13/18 18:38 Dose: 2 unit Levothyroxine Sodium (Synthroid) 25 mcg PO DAILY@0630 [facility] Last Admin: 02/13/18 06:01 Dose: 25 mcg Metoprolol Tartrate (Lopressor) 100 mg PO BIDBS [facility] Last Admin: 02/13/18 18:38 Dose: 100 mg Pantoprazole Sodium (Protonix Ec Tab) 20 mg PO DAILY [facility] Last Admin: 02/13/18 10:12 Dose: 20 mg Tamsulosin HCl (Flomax) 0.4 mg PO DAILY [facility] Last Admin: 02/13/18 10:12 Dose: 0.4 mg - Labs Labs: 02/12/18 08:33 02/13/18 10:58 PT 14.4 SECONDS (9.7-12.2) H 02/08/18 18:21 INR 1.3 02/08/18 18:21 APTT 33 SECONDS (21-34) 02/08/18 18:21
--- NOTE | 2018-02-13 21:03 | CP.PCM.PN ---
Subjective - Subjective Subjective: dictated Objective - Vital Signs/Intake and Output Vital Signs (last 24 hours): Temp Pulse Resp BP Pulse Ox 98 F 79 20 141/83 97 02/13/18 15:30 02/13/18 16:58 02/13/18 15:30 02/13/18 15:30 02/13/18 15:30 Intake and Output: 18 18 18:59 06:59 Intake Total 500 Output Total 100 Balance 400 - Medications Medications: Current Medications Furosemide (Lasix) 40 mg IVP DAILY [facility] Last Admin: 02/13/18 10:13 Dose: 40 mg Gabapentin (Neurontin) 100 mg PO HS [facility] Last Admin: 02/12/18 21:38 Dose: 100 mg Hydralazine HCl (Apresoline) 50 mg PO Q8 [facility] Last Admin: 02/13/18 14:12 Dose: 50 mg Piperacillin Sod/Tazobactam Sod (Zosyn 2.25 Gm Iv Premix) 2.25 gm in 50 mls @ 100 mls/hr IVPB Q8H [facility]; Protocol Last Admin: 02/13/18 16:44 Dose: 100 mls/hr Fluconazole 100 mg/ (Miscellaneous) 50 mls @ 100 mls/hr IVPB DAILY [facility]; Protocol Last Admin: 02/13/18 11:01 Dose: 100 mls/hr Insulin Human Regular (Novolin R) 0 unit SC ACHS [facility]; Protocol Last Admin: 02/13/18 18:38 Dose: 2 unit Levothyroxine Sodium (Synthroid) 25 mcg PO DAILY@0630 [facility] Last Admin: 02/13/18 06:01 Dose: 25 mcg Metoprolol Tartrate (Lopressor) 100 mg PO BIDBS [facility] Last Admin: 02/13/18 18:38 Dose: 100 mg Pantoprazole Sodium (Protonix Ec Tab) 20 mg PO DAILY [facility] Last Admin: 02/13/18 10:12 Dose: 20 mg Tamsulosin HCl (Flomax) 0.4 mg PO DAILY [facility] Last Admin: 02/13/18 10:12 Dose: 0.4 mg - Labs Labs: 02/12/18 08:33 02/13/18 10:58 PT 14.4 SECONDS (9.7-12.2) H 02/08/18 18:21 INR 1.3 02/08/18 18:21 APTT 33 SECONDS (21-34) 02/08/18 18:21
[2018-02-14] MEDS: Levothyroxine 25 MCG TAB PO SCH (05:38)
[2018-02-14] MEDS: Piperacill/Tazo 2.25gm in Dex 2.25 GM/50 ML BAG IVPB SCH ×2 (07:00→16:35)
[2018-02-14] MEDS: (Novolin R) Insulin Human Regular 100 units/ml vial SC SCH ×4 (07:29→22:00)
[2018-02-14 08:10] LABS: CALCIUM 8.4 mg/dl (8.6-10.4)
[2018-02-14] MEDS: Pantoprazole 20 mg EC Tab PO SCH (10:23)
[2018-02-14] MEDS: Fluconazole IV 200mg/100 ml NS 100 MG in Premixed IV 1 EA IVPB SCH (10:24)
[2018-02-14 11:23] LABS: INR 1.3; PROTHROMBIN TIME 14.5 SECONDS (9.7-12.2)
[2018-02-14 16:32] VITALS: RESP 20
--- NOTE | 2018-02-14 17:39 | CP.PCM.PN ---
Subjective - Date & Time of Evaluation Date of Evaluation: 02/14/18 Time of Evaluation: 16:30 - Subjective Subjective: Patient seen and examined at bedside, lying down comfortably. Afebrile and in no acute distress. Denies chest pain, fever/chills Objective - Vital Signs/Intake and Output Vital Signs (last 24 hours): Temp Pulse Resp BP Pulse Ox 98.3 F 91 H 20 117/64 99 02/14/18 15:29 02/14/18 15:29 02/14/18 15:29 02/14/18 15:29 02/14/18 15:29 Intake and Output: 02/14/18 02/14/18 06:59 18:59 Output Total 750 Balance -750 - Medications Medications: Current Medications Furosemide (Lasix) 40 mg IVP DAILY [facility] Last Admin: 02/14/18 10:23 Dose: 40 mg Gabapentin (Neurontin) 100 mg PO HS [facility] Last Admin: 02/13/18 23:00 Dose: 100 mg Hydralazine HCl (Apresoline) 50 mg PO Q8 [facility] Last Admin: 02/14/18 14:00 Dose: 50 mg Piperacillin Sod/Tazobactam Sod (Zosyn 2.25 Gm Iv Premix) 2.25 gm in 50 mls @ 100 mls/hr IVPB Q8H [facility]; Protocol Last Admin: 02/14/18 16:35 Dose: 100 mls/hr Fluconazole 100 mg/ (Miscellaneous) 50 mls @ 100 mls/hr IVPB DAILY [facility]; Protocol Last Admin: 02/14/18 10:24 Dose: 100 mls/hr Insulin Human Regular (Novolin R) 0 unit SC ACHS [facility]; Protocol Last Admin: 02/14/18 12:30 Dose: 1 unit Levothyroxine Sodium (Synthroid) 25 mcg PO DAILY@0630 [facility] Last Admin: 02/14/18 05:38 Dose: 25 mcg Metoprolol Tartrate (Lopressor) 100 mg PO BIDBS [facility] Last Admin: 02/14/18 07:30 Dose: 100 mg Pantoprazole Sodium (Protonix Ec Tab) 20 mg PO DAILY [facility] Last Admin: 02/14/18 10:23 Dose: 20 mg Tamsulosin HCl (Flomax) 0.4 mg PO DAILY [facility] Last Admin: 02/14/18 10:23 Dose: 0.4 mg - Labs Labs: 12/16/18 08:33 02/14/18 07:47 PT 14.5 SECONDS (9.7-12.2) H 02/14/18 11:07 INR 1.3 02/14/18 11:07 APTT 33 SECONDS (21-34) 02/08/18 18:21 - Head Exam Head Exam: ATRAUMATIC, NORMOCEPHALIC - ENT Exam ENT Exam: Mucous Membranes Moist - Neck Exam Neck Exam: Normal Inspection - Respiratory Exam Respiratory Exam: Decreased Breath Sounds - Cardiovascular Exam Cardiovascular Exam: REGULAR RHYTHM - GI/Abdominal Exam GI & Abdominal Exam: Soft Assessment and Plan (1) CHF (congestive heart failure) Assessment & Plan: continue diuretics Patient is off BiPAP during daytime, continue BiPAP at night Status: Acute (2) Atrial fibrillation Status: Acute (3) Renal insufficiency Status: Acute
--- NOTE | 2018-02-14 22:16 | CP.PCM.PN ---
Subjective - Date & Time of Evaluation Date of Evaluation: 02/14/18 Time of Evaluation: 14:20 - Subjective Subjective: Patient seen and evaluated No cardiac events noted Objective - Vital Signs/Intake and Output Vital Signs (last 24 hours): Temp Pulse Resp BP Pulse Ox 98.3 F 91 H 20 117/64 99 02/14/18 15:29 02/14/18 15:29 02/14/18 15:29 02/14/18 15:29 02/14/18 15:29 - Medications Medications: Current Medications Furosemide (Lasix) 40 mg IVP DAILY [facility] Last Admin: 02/14/18 10:23 Dose: 40 mg Gabapentin (Neurontin) 100 mg PO HS [facility] Last Admin: 02/14/18 22:02 Dose: 100 mg Hydralazine HCl (Apresoline) 50 mg PO Q8 [facility] Last Admin: 02/14/18 21:59 Dose: 50 mg Piperacillin Sod/Tazobactam Sod (Zosyn 2.25 Gm Iv Premix) 2.25 gm in 50 mls @ 100 mls/hr IVPB Q8H [facility]; Protocol Last Admin: 02/14/18 16:35 Dose: 100 mls/hr Fluconazole 100 mg/ (Miscellaneous) 50 mls @ 100 mls/hr IVPB DAILY [facility]; Protocol Last Admin: 02/14/18 10:24 Dose: 100 mls/hr Insulin Human Regular (Novolin R) 0 unit SC ACHS [facility]; Protocol Last Admin: 02/14/18 22:00 Dose: Not Given Levothyroxine Sodium (Synthroid) 25 mcg PO DAILY@0630 [facility] Last Admin: 02/14/18 05:38 Dose: 25 mcg Metoprolol Tartrate (Lopressor) 100 mg PO BIDBS [facility] Last Admin: 02/14/18 18:29 Dose: 100 mg Pantoprazole Sodium (Protonix Ec Tab) 20 mg PO DAILY [facility] Last Admin: 02/14/18 10:23 Dose: 20 mg Tamsulosin HCl (Flomax) 0.4 mg PO DAILY [facility] Last Admin: 02/14/18 10:23 Dose: 0.4 mg - Labs Labs: 02/12/18 08:33 02/14/18 07:47 PT 14.5 SECONDS (9.7-12.2) H 02/14/18 11:07 INR 1.3 02/14/18 11:07 APTT 33 SECONDS (21-34) 02/08/18 18:21
--- NOTE | 2018-02-14 23:52 | CP.PCM.PN ---
Subjective - Subjective Subjective: dictated Objective - Vital Signs/Intake and Output Vital Signs (last 24 hours): Temp Pulse Resp BP Pulse Ox 98.3 F 91 H 20 117/64 99 02/14/18 15:29 02/14/18 15:29 02/14/18 15:29 02/14/18 15:29 02/14/18 15:29 Intake and Output: 02/14/18 1218 18:59 06:59 Output Total 250 Balance -250 - Medications Medications: Current Medications Furosemide (Lasix) 40 mg IVP DAILY [facility] Last Admin: 02/14/18 10:23 Dose: 40 mg Gabapentin (Neurontin) 100 mg PO HS [facility] Last Admin: 02/14/18 22:02 Dose: 100 mg Hydralazine HCl (Apresoline) 50 mg PO Q8 [facility] Last Admin: 02/14/18 21:59 Dose: 50 mg Piperacillin Sod/Tazobactam Sod (Zosyn 2.25 Gm Iv Premix) 2.25 gm in 50 mls @ 100 mls/hr IVPB Q8H [facility]; Protocol Last Admin: 02/14/18 16:35 Dose: 100 mls/hr Fluconazole 100 mg/ (Miscellaneous) 50 mls @ 100 mls/hr IVPB DAILY [facility]; Protocol Last Admin: 02/14/18 10:24 Dose: 100 mls/hr Insulin Human Regular (Novolin R) 0 unit SC ACHS [facility]; Protocol Last Admin: 02/14/18 22:00 Dose: Not Given Levothyroxine Sodium (Synthroid) 25 mcg PO DAILY@0630 [facility] Last Admin: 02/14/18 05:38 Dose: 25 mcg Metoprolol Tartrate (Lopressor) 100 mg PO BIDBS [facility] Last Admin: 02/14/18 18:29 Dose: 100 mg Pantoprazole Sodium (Protonix Ec Tab) 20 mg PO DAILY [facility] Last Admin: 02/14/18 10:23 Dose: 20 mg Tamsulosin HCl (Flomax) 0.4 mg PO DAILY [facility] Last Admin: 02/14/18 10:23 Dose: 0.4 mg - Labs Labs: 02/12/18 08:33 02/14/18 07:47 PT 14.5 SECONDS (9.7-12.2) H 02/14/18 11:07 INR 1.3 02/14/18 11:07 APTT 33 SECONDS (21-34) 02/08/18 18:21
[2018-02-15] MEDS: Piperacill/Tazo 2.25gm in Dex 2.25 GM/50 ML BAG IVPB SCH ×2 (00:05→07:00)
[2018-02-15] MEDS: Levothyroxine 25 MCG TAB PO SCH (05:37)
[2018-02-15] MEDS: (Novolin R) Insulin Human Regular 100 units/ml vial SC SCH ×3 (08:13→17:32)
[2018-02-15] MEDS: Fluconazole IV 200mg/100 ml NS 100 MG in Premixed IV 1 EA IVPB SCH (10:35)
[2018-02-15] MEDS: Pantoprazole 20 mg EC Tab PO SCH (10:36)
--- NOTE | 2018-02-15 12:04 | RAD ---
Date of service: 02/15/2018 HISTORY: position of stent bladder ? COMPARISON: CT of the abdomen and pelvis without IV contrast performed 12/08/16 FINDINGS: BOWEL: Nonobstructive bowel gas pattern. Residual oral contrast is seen within the left and rectosigmoid colon/rectum. BONES: Osseous demineralization. Degenerative changes. OTHER FINDINGS: Residual contrast faintly visualized at the expected location of the urinary bladder. Left ureteral stent is noted appearing in similar position as on CT of the abdomen and pelvis performed 12/08/16. Exact location of the left ureteral stent cannot be determined on the basis of this examination alone. Pelvic calcifications, likely phleboliths. IMPRESSION: Residual contrast faintly visualized at the expected location of the urinary bladder. Left ureteral stent is noted appearing in similar position as on CT of the abdomen and pelvis performed 12/08/16. Exact location of the left ureteral stent cannot be determined on the basis of this examination alone.
--- NOTE | 2018-02-15 15:06 | CP.PCM.PN ---
Subjective - Date & Time of Evaluation Date of Evaluation: 02/15/18 Time of Evaluation: 13:00 - Subjective Subjective: 77 year old male with pmh CHF, afib, renal insufficiency Patient seen and examined at bedside, lying down comfortably. Afebrile and in no acute distress. Denies chest pain, fever/chills, SOB Continue oxygen, diuretics, antibiotics, nebulizer. Continue BiPAP at night Objective - Vital Signs/Intake and Output Vital Signs (last 24 hours): Temp Pulse Resp BP Pulse Ox 97.9 F 76 20 160/87 H 97 02/15/18 07:00 02/15/18 08:20 02/15/18 07:00 02/15/18 13:16 02/15/18 07:00 Intake and Output: 02/15/18 02/15/18 06:59 18:59 Output Total 250 Balance -250 - Medications Medications: Current Medications Acetaminophen (Tylenol 325mg Tab) 650 mg PO Q6 PRN PRN Reason: Pain, moderate (4-7) Furosemide (Lasix) 40 mg IVP DAILY [facility] Last Admin: 02/15/18 10:39 Dose: 40 mg Gabapentin (Neurontin) 100 mg PO HS [facility] Last Admin: 02/14/18 22:02 Dose: 100 mg Hydralazine HCl (Apresoline) 50 mg PO Q8 [facility] Last Admin: 02/15/18 13:15 Dose: 50 mg Piperacillin Sod/Tazobactam Sod (Zosyn 2.25 Gm Iv Premix) 2.25 gm in 50 mls @ 100 mls/hr IVPB Q8H [facility]; Protocol Last Admin: 02/15/18 07:00 Dose: 100 mls/hr Fluconazole 100 mg/ (Miscellaneous) 50 mls @ 100 mls/hr IVPB DAILY [facility]; Protocol Last Admin: 02/15/18 10:35 Dose: 100 mls/hr Insulin Human Regular (Novolin R) 0 unit SC ACHS [facility]; Protocol Last Admin: 02/15/18 12:15 Dose: 2 unit Levothyroxine Sodium (Synthroid) 25 mcg PO DAILY@0630 [facility] Last Admin: 02/15/18 05:37 Dose: 25 mcg Metoprolol Tartrate (Lopressor) 100 mg PO BIDBS [facility] Last Admin: 02/15/18 07:01 Dose: 100 mg Pantoprazole Sodium (Protonix Ec Tab) 20 mg PO DAILY [facility] Last Admin: 02/15/18 10:36 Dose: 20 mg Tamsulosin HCl (Flomax) 0.4 mg PO DAILY [facility] Last Admin: 02/15/18 10:36 Dose: 0.4 mg - Labs Labs: 02/12/18 08:33 02/14/18 07:47 PT 14.5 SECONDS (9.7-12.2) H 02/14/18 11:07 INR 1.3 02/14/18 11:07 APTT 33 SECONDS (21-34) 02/08/18 18:21 Assessment and Plan (1) CHF (congestive heart failure) Status: Acute (2) Atrial fibrillation Status: Acute (3) Renal insufficiency Status: Acute
[2018-02-15 16:32] VITALS: BP 121/68; PULSE 67; TEMP 98.2; O2SAT 98
[2018-02-15 17:07] LABS: INR 1.3; PROTHROMBIN TIME 14.7 SECONDS (9.7-12.2)
--- NOTE | 2018-02-15 17:09 | PCM.HF ---
Heart Failure Core Measure - Heart Failure Ejection Fraction: 40 % or Greater DANIEL Inhibitor Prescribed: No Contraindication/Reason for not providing: ARF Beta-Lee Prescribed: Metoprolol Succinate Angiotensin II Receptor Lee Prescribed: No Contraindication/Reason for not providing: ARF AnticoagulationTherapy for Atrial Fibrillation/Atrialflutter: Yes Aldosterone Antagonist Prescribed: No Contraindication/Reason for not providing: ARF/EF>45 Hydralazine Nitrate Prescribed: Yes Implantable Cardioverter Defibrillator Therapy: No Contraindication/Reason for not providing: EF>45 Cardiac Resynchronization Therapy Prescribed: No Contraindication/Reason for not providing: EF.45 - Follow up [facility] be discharged to: [facility]) Follow Up Date (must be within 7 days from discharge): 02/20/18 Follow Up Time: 19:00
--- NOTE | 2018-02-15 17:11 | CP.PCM.PN ---
Subjective - Date & Time of Evaluation Date of Evaluation: 02/15/18 Time of Evaluation: 11:00 - Subjective Subjective: Patient seen today, awake, alert, comfortable , denies anuy sob, headache, abdominal pain, states wants to sit up in chair and wants to go home No overnigh t event reported by RN labs and vss reviewed - stable cr- stable oxygen sat- 98-99% with 2 liters of o2 Objective - Vital Signs/Intake and Output Vital Signs (last 24 hours): Temp Pulse Resp BP Pulse Ox 98.2 F 67 20 121/68 98 02/15/18 15:31 02/15/18 15:31 02/15/18 15:31 02/15/18 15:31 02/15/18 15:31 Intake and Output: 02/15/18 02/15/18 06:59 18:59 Intake Total 720 Output Total 250 400 Balance -250 320 - Medications Medications: Current Medications Acetaminophen (Tylenol 325mg Tab) 650 mg PO Q6 PRN PRN Reason: Pain, moderate (4-7) Furosemide (Lasix) 40 mg IVP DAILY [facility] Last Admin: 02/15/18 10:39 Dose: 40 mg Gabapentin (Neurontin) 100 mg PO HS [facility] Last Admin: 02/14/18 22:02 Dose: 100 mg Hydralazine HCl (Apresoline) 50 mg PO Q8 [facility] Last Admin: 02/15/18 13:15 Dose: 50 mg Piperacillin Sod/Tazobactam Sod (Zosyn 2.25 Gm Iv Premix) 2.25 gm in 50 mls @ 100 mls/hr IVPB Q8H [facility]; Protocol Last Admin: 02/15/18 07:00 Dose: 100 mls/hr Fluconazole 100 mg/ (Miscellaneous) 50 mls @ 100 mls/hr IVPB DAILY [facility]; Protocol Last Admin: 02/15/18 10:35 Dose: 100 mls/hr Insulin Human Regular (Novolin R) 0 unit SC ACHS [facility]; Protocol Last Admin: 02/15/18 12:15 Dose: 2 unit Levothyroxine Sodium (Synthroid) 25 mcg PO DAILY@0630 [facility] Last Admin: 02/15/18 05:37 Dose: 25 mcg Metoprolol Tartrate (Lopressor) 100 mg PO BIDBS [facility] Last Admin: 02/15/18 07:01 Dose: 100 mg Pantoprazole Sodium (Protonix Ec Tab) 20 mg PO DAILY [facility] Last Admin: 02/15/18 10:36 Dose: 20 mg Tamsulosin HCl (Flomax) 0.4 mg PO DAILY [facility] Last Admin: 02/15/18 10:36 Dose: 0.4 mg Warfarin Sodium (Coumadin) 5 mg PO 1800 [facility] Stop: 02/15/18 18:01 - Labs Labs: 02/12/18 08:33 02/14/18 07:47 PT 14.7 SECONDS (9.7-12.2) H 02/15/18 16:51 INR 1.3 02/15/18 16:51 APTT 33 SECONDS (21-34) 02/08/18 18:21 - Constitutional Appears: Well, No Acute Distress - Respiratory Exam Respiratory Exam: Clear to Ausculation Bilateral, NORMAL BREATHING PATTERN Assessment and Plan - Assessment and Plan (Free Text) Assessment: A/P 77 year old male with PMHx of atrial fibrillation , HTN, CAD, DM-2, hypothyroidism, admitted with resp. failure secondary to acute CHF and renal insufficiency Patient clinically improved with diruetics and BIPAP Ooxygen sat stable with nasal canula at 2lit/min - 98-99% Patient has chronic paulson cath secondary to urinary retention Dr. Cabral on consult , KUB done today and Dr. Cabral reviewed the result and compared to previous CT , recommends to remove stent in 1 month , patient can BE returns to [facility] and f/u with his office [facility]. last week D/w with Dr. Osborne, cleared fro discharge back to [facility] and Dr. Osborne will follow the patient at [facility] ALL INSTRUCTIONS REGARDING MEDICATION, F/U VISIT , AND BLOOD WORK SENT TO [facility] TO F/U
--- NOTE | 2018-02-15 23:25 | CP.PCM.DIS ---
Provider - Provider Date of Admission: 02/08/18 20:51 Attending physician: Kevin Osborne MD Consults: 02/08/18 20:49 Cardiology Consult Stat Comment: Consulting Provider: Jose Gipson Consulting Physician: Jose Gipson Reason for Consult: chf Pulmonology Consult Stat Comment: Consulting Provider: Anderson Gómez Consulting Physician: Anderson Gómez Reason for Consult: dyspnea 02/08/18 21:10 Critical Care Consult Stat Comment: Consulting Provider: Fabiola Stein Consulting Physician: Fabiola Stein Reason for Consult: rapid AFIb 02/09/18 14:08 Urology Consult Routine Comment: Consulting Provider: Melania Moreno Consulting Physician: Melania Moreno Reason for Consult: chroninc paulson and abnomal ct Hospital Course - Lab Results Lab Results: Micro Results 02/08/18 21:45 Urine,Catheterized Urine Culture - Final Yeast Species Most Recent Lab Values WBC 7.9 K/uL (4.8-10.8) 02/12/18 08:33 RBC 3.09 Mil/uL (4.40-5.90) L 02/12/18 08:33 Hgb 9.8 g/dL (12.0-18.0) L 02/12/18 08:33 Hct 29.8 % (35.0-51.0) L 02/12/18 08:33 MCV 96.4 fL (80.0-94.0) H 02/12/18 08:33 MCH 31.6 pg (27.0-31.0) H 02/12/18 08:33 MCHC 32.7 g/dL (33.0-37.0) L 02/12/18 08:33 RDW 19.6 % (11.5-14.5) H 02/12/18 08:33 Plt Count 161 K/uL (130-400) 02/12/18 08:33 MPV 10.1 fL (7.2-11.7) 02/12/18 08:33 Neut % (Auto) 74.3 % (50.0-75.0) 02/12/18 08:33 Lymph % (Auto) 11.6 % (20.0-40.0) L 02/12/18 08:33 [place] % (Auto) 6.1 % (0.0-10.0) 02/12/18 08:33 Eos % (Auto) 7.0 % (0.0-4.0) H 02/12/18 08:33 Baso % (Auto) 1.0 % (0.0-2.0) 02/12/18 08:33 Neut # (Auto) 5.9 K/uL (1.8-7.0) 02/12/18 08:33 Lymph # (Auto) 0.9 K/uL (1.0-4.3) L 02/12/18 08:33 [place] # (Auto) 0.5 K/uL (0.0-0.8) 02/12/18 08:33 Eos # (Auto) 0.6 K/uL (0.0-0.7) 02/12/18 08:33 Baso # (Auto) 0.1 K/uL (0.0-0.2) 02/12/18 08:33 Neutrophils % (Manual) 86 % (50-75) H 02/09/18 12:18 Lymphocytes % (Manual) 9 % (20-40) L 02/09/18 12:18 Monocytes % (Manual) 4 % (0-10) 02/09/18 12:18 Eosinophils % (Manual) 1 % (0-4) 02/09/18 12:18 Platelet Estimate Normal (NORMAL) 02/09/18 12:18 Hypochromasia (manual) Slight 02/09/18 12:18 Poikilocytosis (manual Slight 02/09/18 12:18 Basophilic Stippling Slight 02/09/18 12:18 Anisocytosis (manual) Slight 02/09/18 12:18 [place] Cells Slight 02/09/18 12:18 PT 14.7 SECONDS (9.7-12.2) H 02/15/18 16:51 INR 1.3 02/15/18 16:51 APTT 33 SECONDS (21-34) 02/08/18 18:21 D-Dimer, Quantitative 894 ng/mlDDU (0-243) H 18 18:21 Puncture Site Rr 02/10/18 16:45 pCO2 38 mm/Hg (35-45) 02/10/18 16:45 pO2 102 mm/Hg (80-100) H 02/10/18 16:45 HCO3 27.9 mmol/L (21-28) 02/10/18 16:45 ABG pH 7.47 (7.35-7.45) H 02/10/18 16:45 ABG Total CO2 28.9 mmol/L (22-28) H 02/10/18 16:45 ABG O2 Saturation 99.9 % (95-98) H 02/10/18 16:45 ABG Base Excess 3.8 mmol/L (-2.0-3.0) H 02/10/18 16:45 ABG Hemoglobin 9.7 g/dL (11.7-17.4) L 02/10/18 16:45 ABG Carboxyhemoglobin 2.8 % (0.5-1.5) H 02/10/18 16:45 POC ABG HHb (Measured) 0.1 % (0.0-5.0) 02/10/18 16:45 ABG Methemoglobin 1.6 % (0.0-3.0) 02/10/18 16:45 Yusuf Test Pos 02/10/18 16:45 ABG Potassium 3.7 mmol/L (3.6-5.2) 02/08/18 22:50 A-a O2 Difference 64.0 mm/Hg 02/10/18 16:45 Respiratory Index 0.6 02/10/18 16:45 Hgb O2 Saturation 95.5 % (95.0-98.0) 02/10/18 16:45 Sodium 145.0 mmol/l (132-148) 02/08/18 22:50 Chloride 115.0 mmol/L (98-107) H 02/08/18 22:50 Glucose 194 mg/dl (75-110) H 02/08/18 22:50 Lactate 1.0 mmol/L (0.7-2.1) 02/08/18 22:50 Vent Mode Bipap 02/10/18 16:45 FiO2 30.0 % 02/10/18 16:45 Inspiratory BiPAP 14 02/10/18 16:45 Expiratory BiPAP 7 02/10/18 16:45 Sodium 140 mmol/L (132-148) 02/14/18 07:47 Potassium 3.9 mmol/L (3.6-5.2) 02/14/18 07:47 Chloride 104 mmol/L (98-107) 02/14/18 07:47 Carbon Dioxide 29 mmol/L (22-30) 02/14/18 07:47 Anion Gap 11 (10-20) 02/14/18 07:47 BUN 29 mg/dL (9-20) H 02/14/18 07:47 Creatinine 2.0 mg/dL (0.8-1.5) H 02/14/18 07:47 Est GFR ( Amer) 39 02/14/18 07:47 Est GFR (Non-Af Amer) 33 02/14/18 07:47 POC Glucose (mg/dL) 191 mg/dL (65-110) H 02/15/18 16:18 Random Glucose 174 mg/dL (75-110) H 02/14/18 07:47 Calcium 8.4 mg/dl (8.6-10.4) L 02/14/18 07:47 Phosphorus 2.8 mg/dL (2.5-4.5) 02/13/18 10:58 Magnesium 1.7 mg/dL (1.6-2.3) 02/13/18 10:58 Total Bilirubin 0.9 mg/dL (0.2-1.3) 02/13/18 10:58 Direct Bilirubin 0.6 mg/dL (0.0-0.4) H 02/13/18 10:58 AST 21 U/L (17-59) 02/13/18 10:58 ALT 17 U/L (21-72) L 02/13/18 10:58 Alkaline Phosphatase 79 U/L (38-126) 02/13/18 10:58 Total Creatine Kinase 32 U/L (55-170) L 02/09/18 06:40 CK-MB (Mass) 1.26 ng/mL (0.0-3.38) 02/09/18 06:40 Troponin I 0.0650 ng/mL (0.00-0.120) 02/09/18 06:40 NT-Pro-B Natriuret Pep 80078 pg/mL (0-900) H 02/08/18 18:21 Total Protein 5.9 g/dL (6.3-8.3) L 02/13/18 10:58 Albumin 2.8 g/dL (3.5-5.0) L 02/13/18 10:58 Globulin 3.1 gm/dL (2.2-3.9) 02/13/18 10:58 Albumin/Globulin Ratio 0.9 (1.0-2.1) L 02/13/18 10:58 TSH 3rd Generation 1.26 mIU/L (0.46-4.68) 02/10/18 08:24 Arterial Blood Potassium 3.7 mmol/L (3.6-5.2) 02/08/18 22:50 Urine Color Yellow (YELLOW) 02/08/18 22:57 Urine Clarity Turbid (Clear) 02/08/18 22:57 Urine pH 5.0 (5.0-8.0) 02/08/18 22:57 Ur Specific [place] 1.012 (1.003-1.030) 02/08/18 22:57 Urine Protein 2+ mg/dL (NEGATIVE) H 02/08/18 22:57 Urine Glucose (UA) Normal mg/dL (Normal) 02/08/18 22:57 Urine Ketones Negative mg/dL (NEGATIVE) 02/08/18 22:57 Urine Blood 2+ (NEGATIVE) H 02/08/18 22:57 Urine Nitrate Negative (NEGATIVE) 02/08/18 22:57 Urine Bilirubin Negative (NEGATIVE) 02/08/18 22:57 Urine Urobilinogen Normal mg/dL (0.2-1.0) 02/08/18 22:57 Ur Leukocyte Esterase 3+ Shayy/uL (Negative) H 02/08/18 22:57 Urine WBC (Auto) 2542 /hpf (0-5) H 02/08/18 22:57 Urine RBC (Auto) 51 /hpf (0-3) H 02/08/18 22:57 Urine WBC Clumps (Auto) Many /hpf (NONE) H 02/08/18 22:57 Urine Bacteria Few (<OCC) H 02/08/18 22:57 Ur Yeast w Hyphae Occ /lpf (NEGATIVE) H 02/08/18 22:57 Urine Yeast (Budding) Many /hpf (NEGATIVE) H 02/08/18 22:57 Urine Opiates Screen Negative (NEGATIVE) 02/08/18 22:55 Ur Opiates (GC/MS) Negative 300 (Negative) 02/08/18 22:55 Oxycodone Screen negative 02/08/18 22:55 Ur Oxycodone Comment See note 02/08/18 22:55 Urine Methadone Screen Negative (NEGATIVE) 02/08/18 22:55 Ur Methadone, Qual Negative 300 (Negative) 02/08/18 22:55 Urine Propoxyphene Negative 300 (Negative) 02/08/18 22:55 Methaqualone Negative 300 (Negative) 02/08/18 22:55 Ur Barbiturates Screen Negative (NEGATIVE) 02/08/18 22:55 Ur Barbiturates, Qual Negative 300 (Negative) 02/08/18 22:55 Ur Phencyclidine Scrn Negative (NEGATIVE) 02/08/18 22:55 Ur Phencyclidine (PCP) Negative 25 (Negative) 02/08/18 22:55 Ur Amphetamines Screen Negative 1000 (Negative) 02/08/18 22:55 U Benzodiazepines Scrn Negative (NEGATIVE) 02/08/18 22:55 U Benzodiazepines Qual Negative 300 (Negative) 02/08/18 22:55 Urine Cocaine Negative 300 (Negative) 02/08/18 22:55 U Oth Cocaine Metabols Negative (NEGATIVE) 02/08/18 22:55 U Cannabinoids Screen Negative (NEGATIVE) 02/08/18 22:55 U Marijuana (THC) Screen Negative 50 (Negative) 02/08/18 22:55 Drugs of Abuse Note See note 02/08/18 22:55 Discharge Exam - Head Exam Head Exam: ATRAUMATIC, NORMOCEPHALIC Discharge Plan - Discharge Medications Prescriptions: Fluconazole [Diflucan] 100 mg PO DAILY #2 tab - Follow Up Plan Condition: GUARDED Disposition: [facility] FAC W/PLAN READMIS Instructions: Heart Healthy Diet, Atrial Fibrillation (DC), Acute Kidney Failure (DC), Heart Failure (DC), Renal Failure Diet (DC) Additional Instructions: PLEASE CALL DR. OSBORNE UPON PATIENT ARRIVAL TO THE FLOOR PLEASE DO PT /INR DAILY UNTIL INR 2-3 AND THEN PER FACILITY PROTOCOL PLEASE DO CBC, BMP ON TUESDAY AND THEN PER DR. OSBORNE PLEASE F/U WITH DR. MORENO OFFICE END OF FEBRUARY - 2018 FOR REMOVAL OF STENT PLEASE KEEP F/C , CHANGE PER FACILITY PROTOCOL-( DR. MORENO OFFICE # [phone] - PLEASE CALL AND MAKE APPOINTMENT AND ARRANGE TRANSPORTATION- VERY IMPORTANT ) PLEASE KEEP THE KNEE BRACE TO THE R KNEE UNTIL INSTRUCTED BY [employer] TO REMOVE- PLEASE F/U PLEASE HOLD COUMADIN FOR 5 DAYS BEFORE SENDING THE PATIENT TO DR. MORENO OFFICE FOR STENT REMOVAL Referrals: Anderson Gómez MD [Staff Provider] - Jose Gipson MD [Staff Provider] - Kevin Osborne MD [Staff Provider] - Melania Moreno MD [Staff Provider] -
--- NOTE | 2018-02-16 02:37 | PN ---
DATE: 02/15/2018 SUBJECTIVE: The patient is on BiPAP. He is less short of breath, calm, quite. No fever, no chills, and at times, he complains of pain in the Lord catheter's site, although no visible hematuria or any discharge or any injury is present. PHYSICAL EXAMINATION: GENERAL: The patient is improving. VITAL SIGNS: Blood pressure 117/64, pulse 91, respiratory rate 20, and temperature 98.3. LUNGS: Bilateral decreased air entry. Bilateral rales. CARDIOVASCULAR SYSTEM: S1 and S2, regular. ABDOMEN: Soft. ASSESSMENT: 1. Congestive heart failure. 2. Tracheobronchitis. 3. Hypertension. 4. Cerebral arteriosclerosis. 5. Obstructive neuropathy. PLAN: Continue current medications. Urology evaluation. Kevin Osborne MD
--- NOTE | 2018-02-16 02:39 | PN ---
DATE: 02/15/2018 SUBJECTIVE: The patient is improving. He is less short of breath. He is to be seen by Dr. Cabral tomorrow morning. No fever. No chills. PHYSICAL EXAMINATION: VITAL SIGNS: Blood pressure 155/84, pulse 73, respiratory rate 20, and temperature 98.1. LUNGS: Decreased air entry. Positive rales. CARDIOVASCULAR SYSTEM: S1, S2, plus S3 positive. ABDOMEN: Soft. ASSESSMENT: 1. Obstructive uropathy with Lord catheter. 2. Hypertension. 3. Congestive heart failure. 4. Tracheobronchitis. PLAN: Continue current medications. Monitor the patient. Urology eval. Kevin Osborne MD
--- NOTE | 2018-02-16 06:58 | CON ---
DATE: 02/15/2018 The patient has history of multiple myeloma. Apparently, the patient has stent inserted on the left side. KUB done today revealed stent is not calcified, and down to the bladder, normal curving. No stones seen on the side or in the bladder. His family doctor wants to send him home. He can be sent home and followup as an outpatient. Melania Cabral MD
--- NOTE | 2018-02-16 07:01 | DS ---
DISCHARGE DIAGNOSES: 1. Congestive heart failure exacerbation. 2. Tracheobronchitis. 3. Hypertension. 4. Obstructive uropathy. 5. Cerebral atherosclerosis. 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 He is not ambulatory. He is fully dependent on the staff for activities of daily living and he was in a rehab facility and he was found to be short of breath. The patient was brought to the emergency room by ambulance and the patient was hospitalized. He was diuresed, intake, output, daily body weight and his condition improved and he is being discharged back to subacute rehab. PHYSICAL EXAMINATION: VITAL SIGNS: Blood pressure 155/84, pulse 73, respiratory rate 20, and temperature 98.1. LUNGS: Decreased air entry. Positive rales. CVS: S1 and S2, regular. ABDOMEN: Soft. LABORATORY DATA: WBC 7.9, hemoglobin 9.8, hematocrit 29.8, and platelets 161. Coagulation profile is negative. Chemistries; sodium 140, potassium 8.9, chloride 104, bicarb 29, BUN 29, creatinine 2. Baseline ABG showed pH of 7.47, pCO2 38, pO2 102, bicarb 27.9. DISCHARGE CONDITION: Condition was stable upon discharge. Kevin Osborne MD
== END 2018-02-15 18:20 | DRG 291 ==
LOC: C.ER 16:56 → C.9E 20:51 → C.5S 22:58 → C.6T 02-10 19:57
PROVIDERS: ADMIT Internal Medicine; ATTEND Internal Medicine
PROC: 5A09557 Assistance with Respiratory Ventilation, Greater than 96 Consecutive Hours, Continuous Positive Airway Pressure (ICD-10-PCS; principal; 2018-02-08)
DX: I13.0 Hypertensive heart and chronic kidney disease with heart failure and stage 1 through stage 4 chronic kidney disease, or unspecified chronic kidney disease (principal); I50.33 Acute on chronic diastolic (congestive) heart failure; J96.00 Acute respiratory failure, unspecified whether with hypoxia or hypercapnia; A41.9 Sepsis, unspecified organism; G81.94 Hemiplegia, unspecified affecting left nondominant side; N17.9 Acute kidney failure, unspecified; N18.3 Chronic kidney disease, stage 3 (moderate); I48.2 Chronic atrial fibrillation; E11.22 Type 2 diabetes mellitus with diabetic chronic kidney disease; N31.9 Neuromuscular dysfunction of bladder, unspecified; E03.9 Hypothyroidism, unspecified; I67.2 Cerebral atherosclerosis; I25.10 Atherosclerotic heart disease of native coronary artery without angina pectoris; E78.5 Hyperlipidemia, unspecified; E78.00 Pure hypercholesterolemia, unspecified; Z95.5 Presence of coronary angioplasty implant and graft; Z79.01 Long term (current) use of anticoagulants; Z87.891 Personal history of nicotine dependence; Z85.79 Personal history of other malignant neoplasms of lymphoid, hematopoietic and related tissues; Z74.01 Bed confinement status

== ENCOUNTER 2018-02-21 16:57 | Inpatient (IN) | payer MEDICARE, OTHER ==
[2018-02-21 16:58] VITALS: BMI 32.8
[2018-02-21 17:44] LABS: EOS # 0.1 K/uL (0.0-0.7); LYMPH # 1.1 K/uL (1.0-4.3); MONO # 0.4 K/uL (0.0-0.8); NRBC % 0.1 % (0.0-2.0); WHITE BLOOD COUNT 4.2 K/uL (4.8-10.8)
[2018-02-21 17:52] LABS: BASO # 0.1 K/uL (0.0-0.2); BASO % 1.3 % (0.0-2.0); EOS % 2.6 % (0.0-4.0); LYMPH % 26.2 % (20.0-40.0); MEAN CELL VOLUME 95.8 fL (80.0-94.0); MEAN CORPUSCULAR HGB CONC 32.4 g/dL (33.0-37.0); MEAN PLATELET VOLUME 9.6 fL (7.2-11.7); MONO % 9.3 % (0.0-10.0); NEUT # 2.5 K/uL (1.8-7.0); NEUT % 60.6 % (50.0-75.0); RBC 1.84 Mil/uL (4.40-5.90); RED CELL DISTRIBUTION WIDTH 18.9 % (11.5-14.5)
[2018-02-21 17:55] LABS: HEMOGLOBIN 5.7 g/dL (12.0-18.0)
[2018-02-21 17:57] LABS: URINE BACTERIA MANY (<OCC); URINE BILIRUBIN NEGATIVE (NEGATIVE); URINE BLOOD 3+ (NEGATIVE); URINE CLARITY Hazy (Clear); URINE COLOR Yellow (YELLOW); URINE GLUCOSE (UA) NORMAL (Normal); URINE LEUKOCYTE ESTERASE 3+ Leu/uL (Negative); URINE PROTEIN 2+ mg/dL (NEGATIVE); WBC CLUMPS FEW /hpf
[2018-02-21 18:02] LABS: ALB/GLOB RATIO 0.9 (1.0-2.1); ALBUMIN 2.7 g/dL (3.5-5.0); CALCIUM 8.4 mg/dl (8.6-10.4)
[2018-02-21 18:08] LABS: TROPONIN I 0.082 ng/mL (0.00-0.120)
[2018-02-21 18:09] LABS: INR 3.6; PROTHROMBIN TIME 39.3 SECONDS (9.7-12.2)
[2018-02-21] MEDS ORDERED: Sodium Chloride 0.9% 500 ML IV ONE (18:28)
[2018-02-21] MEDS ORDERED: Pantoprazole 80 MG in Sodium Chloride 0.9% 100 ML IV STA (18:28)
--- NOTE | 2018-02-21 18:38 | C.PDOC ---
History Of Present Illness 77 year old male with PMHx of CHF, HTN, diabetes, and CAD presents to the ED from [facility] for a 2-day history of blood in stools. As per , patient also has a penis abrasion around the urinary catheter. She states patient was recently discharged from [facility] for unknown reasons. Additional history limited because of patient's clinical condition and his being a poor historian. Time Seen by Provider: 02/21/18 16:59 Chief Complaint (Nursing): GI Problem History Per: Patient History/Exam Limitations: no limitations Past Medical History Reviewed: Historical Data, Nursing Documentation, Vital Signs Vital Signs: Last Vital Signs Temp 98.1 F 02/21/18 17:53 Pulse 145 H 02/21/18 17:53 Resp 20 02/21/18 17:53 BP 106/53 L 02/21/18 17:53 Pulse Ox 99 02/21/18 17:53 - Medical History PMH: Anemia, Atrial Fibrillation, CAD, CHF, Diabetes, HTN, Hypercholesterolemia Denies: Arthritis, COPD, HIV, Hypothyroidism, Chronic Kidney Disease, Rheumatoid Arthritis Surgical History: Coronary Stent - [facility] Procedures ASSISTANCE WITH RESPIRATORY VENTILATION, >96 HRS, CPAP (02/08/18) CONTROL BLEEDING IN GENITOURINARY TRACT, ENDO (11/29/16) DILATION OF LEFT URETER WITH INTRALUMINAL DEVICE, ENDO (11/29/16) FLUOROSCOPY KIDNEY, URETER, BLADDER, L W L OSM CONTRAST (11/29/16) TRANSFUSE NONAUT FROZEN PLASMA IN PERIPH VEIN, PERC (01/16/18) TRANSFUSE NONAUT RED BLOOD CELLS IN PERIPH VEIN, PERC (01/16/18) Family History: States: No Known Family Hx - Social History Hx Alcohol Use: Yes (history/ patient no longer drinks alcohol) Hx Substance Use: No - Immunization History Hx Tetanus Toxoid Vaccination: No Hx Influenza Vaccination: Yes Hx Pneumococcal Vaccination: Yes Review Of Systems Review Of Systems: ROS cannot be obtained secondary to pt's inabilty to answer questions. Physical Exam - Physical Exam Additional Physical Exam Comments: Appears: Non-toxic, No Acute Distress Skin: Normal Color, Warm, Dry Head: Atraumatic, Normacephalic Eye(s): B/L Normal Inspection. No pallor Oral Mucosa: [place] and Dry Neck: Supple Chest: Symmetrical, No Deformity, No Tenderness Cardiovascular: No Murmur, irregularly irregular. Tachycardic Respiratory: No Rhonchi, No Wheezing, No rales. Gastrointestinal/Abdominal: Soft, No Tenderness, No Guarding, No Rebound. Obese. Rectal: Melanotic stools. Male Genital: Small abrasion at the top of the penis. Urinary catheter in place, draining clear yellow urine. Extremity: Pedal Edema, Capillary Refill (less than 2 seconds ) Neurological/Psych: awake, alert, confused Gait: non-ambulatory PE: limited due to patient's condition. ED Course And Treatment - Laboratory Results Result Diagrams: 02/27/18 06:10 02/25/18 05:08 ECG: Interpreted By Me, Viewed By Me ECG Rhythm: Atrial Fibrillation Interpretation Of ECG: AFIB with RVR, left axis deviation. Normal QRS and QT intervals. Rate From EC O2 Sat by Pulse Oximetry: 99 - CT Scan/US CT abd/pel Other Rad Studies (CT/US): Read By Radiologist, Radiology Report Reviewed CT/US Interpretation: IMPRESSION: Dense consolidation and/or atelectasis at the lung bases as well as moderate-sized bilateral pleural effusions. Right renal cyst. Poorly defined left kidney which is likely hydronephrotic and cystic. A nephroureterostomy tube left side with the proximal portion along the medial aspect of the left kidney and the distal portion within the bladder. Markedly enlarged prostate gland thickening of bladder wall Lord catheter within the bladder. Correlation with ultrasound examination of the kidneys are dedicated contrast-enhanced CT examination urinary system may be considered. Medical Decision Making Medical Decision Making: Plan - Bloodwork - CT abd/pel - EKG - CXR - Ativan 1.5mg IM - IV fluids - Protonix INJ - Vitamin K INJ - Urine culture Old records reviewed. Patient was seen on 02/08/18 in the ED and admitted under Dr. Osborne's service for management of CHF. Patient was discharged on 02/15/18 and sent to [facility]. 1824 Spoke with ELIZABETH Garcia. Agrees with admission plan. [address] Favio Stein, Hospitalist. Accepts patient to the ICU. Disposition - Disposition Disposition: HOSPITALIZED Disposition Time: 18:25 Condition: FAIR - Clinical Impression Clinical Impression: Gastrointestinal hemorrhage, Anemia, Pleural effusion, Hypercoagulable state, Dehydration, DEBBY (acute kidney injury), Chronic atrial fibrillation with RVR - Scribe Statement The provider has reviewed the documentation as recorded by the Scribe Constance Johnson All medical record entries made by the Scribe were at my direction and personally dictated by me. I have reviewed the chart and agree that the record accurately reflects my personal performance of the history, physical exam, medical decision making, and the department course for this patient. I have also personally directed, reviewed, and agree with the discharge instructions and disposition.
[2018-02-21] MEDS ORDERED: Phytonadione 10 mg/ml Inj (Adult) IV STA (19:07)
[2018-02-21] MEDS ORDERED: Pantoprazole 80 MG in Sodium Chloride 0.9% 100 ML IVP ONE (19:15)
[2018-02-21] MEDS: Pantoprazole 80 MG in Sodium Chloride 0.9% 100 ML IVP SCH (19:23)
--- NOTE | 2018-02-21 20:03 | CP.PCM.CON ---
History of Present Illness - History of Present Illness History of Present Illness: 77 y/o male with PMHx of AFib on warfarin, HTN, CAD, DM2, Hypothyroidism, and HLD recently discharged from [facility] presents today with c/o low hb/hct and tachcyardai with hypotension. as per ER, bright red blood from rectum. Isabel louis is demented and non-communicative ROS: limited 2nd AMS PMHx: AFib on warfarin, HTN, CAD s/p PCI, DM2, Hypothyroidism, and HLD PSHx: Coronary stent Social Hx (previous admission): Denies tobacco use, alcohol use, and illicit drug use. lives with at home Family Hx: Noncontributory Allergies: NKDA Medications: see nursing hoem chart Review of Systems - Review of Systems Systems not reviewed;Unavailable: Altered Mental Status Past Patient History - Infectious Disease Hx of Infectious Diseases: None - Tetanus Immunizations Tetanus Immunization: Unknown - Past Medical History & Family History Past Medical History?: Yes - Past Social History Smoking Status: Former Smoker - CARDIAC Hx Atrial Fibrillation: Yes Hx Congestive Heart Failure: Yes Hx Hypercholesterolemia: Yes Hx Hypertension: Yes - PULMONARY Hx Chronic Obstructive Pulmonary Disease (COPD): No - NEUROLOGICAL Hx Neurological Disorder: No - HEENT Hx HEENT Problems: No - RENAL Hx Chronic Kidney Disease: No - ENDOCRINE/METABOLIC Hx Hypothyroidism: No - HEMATOLOGICAL/ONCOLOGICAL Hx Anemia: Yes Hx Human Immunodeficiency Virus (HIV): No - INTEGUMENTARY Hx Dermatological Problems: No - MUSCULOSKELETAL/RHEUMATOLOGICAL Hx Arthritis: No Hx Rheumatoid Arthritis: No - GASTROINTESTINAL Hx Gastrointestinal Disorders: No - GENITOURINARY/GYNECOLOGICAL Hx Genitourinary Disorders: No - PSYCHIATRIC Hx Substance Use: No - SURGICAL HISTORY Hx Coronary Stent: Yes - ANESTHESIA Hx Anesthesia: Yes Hx Anesthesia Reactions: No Hx Malignant Hyperthermia: No Meds Allergies/Adverse Reactions: Allergies Allergy/AdvReac Type Severity Reaction Status Date / Time No Known Allergies Allergy Verified 02/21/18 17:15 - Medications Medications: Current Medications Pantoprazole Sodium 80 mg/ (Sodium Chloride) 100 mls @ 10 mls/hr IV .Q10H STA Stop: 02/22/18 04:27 Last Admin: 02/21/18 18:44 Dose: 10 mls/hr Pantoprazole Sodium 80 mg/ (Sodium Chloride) 100 mls @ 10 mls/hr IVP .Q10H RENA Last Admin: 02/21/18 19:23 Dose: 10 mls/hr Physical Exam - Head Exam Head Exam: ATRAUMATIC, NORMAL INSPECTION - Eye Exam Eye Exam: EOMI Pupil Exam: PERRL - ENT Exam ENT Exam: Mucous Membranes Moist - Respiratory Exam Respiratory Exam: Clear to Auscultation Bilateral, NORMAL BREATHING PATTERN - Cardiovascular Exam Cardiovascular Exam: Tachycardia, Irregular Rhythm, +S1, +S2, Systolic Murmur - GI/Abdominal Exam GI & Abdominal Exam: Normal Bowel Sounds, Soft. absent: Tenderness - Rectal Exam Rectal Exam: Hemorrhoids Additional comments: red blood mixed with stool - Extremities Exam Extremities exam: Positive for: pedal edema - Skin Skin Exam: Normal Color, Warm Results - Vital Signs Recent Vital Signs: Last Vital Signs Temp 99.8 F H 02/21/18 19:57 Pulse 135 H 02/21/18 19:20 Resp 22 02/21/18 19:20 BP 100/62 02/21/18 19:20 Pulse Ox 99 02/21/18 19:39 - Labs Result Diagrams: 02/21/18 17:40 02/21/18 17:40 Labs: Laboratory Results - last 24 hr 02/21/18 02/21/18 02/21/18 17:40 17:40 17:40 WBC 4.2 L RBC 1.84 L Hgb 5.7 L* D Hct 17.7 L MCV 95.8 H MCH 31.0 MCHC 32.4 L RDW 18.9 H Plt Count 126 L D MPV 9.6 Neut % (Auto) 60.6 Lymph % (Auto) 26.2 Powell % (Auto) 9.3 Eos % (Auto) 2.6 Baso % (Auto) 1.3 Neut # (Auto) 2.5 Lymph # (Auto) 1.1 Powell # (Auto) 0.4 Eos # (Auto) 0.1 Baso # (Auto) 0.1 PT INR APTT Sodium 140 Potassium 4.3 Chloride 105 Carbon Dioxide 27 Anion Gap 13 BUN 58 H Creatinine 2.1 H Est GFR ( Amer) 37 Est GFR (Non-Af Amer) 31 Random Glucose 227 H D Calcium 8.4 L Total Bilirubin 0.7 AST 17 ALT 17 L Alkaline Phosphatase 82 Troponin I 0.0820 Total Protein 5.6 L Albumin 2.7 L Globulin 2.9 Albumin/Globulin Ratio 0.9 L Lipase 13 L Urine Color Urine Clarity Urine pH Ur Specific Stafford Urine Protein Urine Glucose (UA) Urine Ketones Urine Blood Urine Nitrate Urine Bilirubin Urine Urobilinogen Ur Leukocyte Esterase Urine WBC (Auto) Urine RBC (Auto) Urine WBC Clumps (Auto) Urine Bacteria Urine Yeast (Budding) Stool Occult Blood Blood Type A POSITIVE Antibody Screen Negative 02/21/18 02/21/18 02/21/18 17:46 17:50 18:26 WBC RBC Hgb Hct MCV MCH MCHC RDW Plt Count MPV Neut % (Auto) Lymph % (Auto) Powell % (Auto) Eos % (Auto) Baso % (Auto) Neut # (Auto) Lymph # (Auto) Powell # (Auto) Eos # (Auto) Baso # (Auto) PT 39.3 H INR 3.6 H* APTT 31 Sodium Potassium Chloride Carbon Dioxide Anion Gap BUN Creatinine Est GFR ( Amer) Est GFR (Non-Af Amer) Random Glucose Calcium Total Bilirubin AST ALT Alkaline Phosphatase Troponin I Total Protein Albumin Globulin Albumin/Globulin Ratio Lipase Urine Color Yellow Urine Clarity Hazy Urine pH 5.0 Ur Specific Stafford 1.011 Urine Protein 2+ H Urine Glucose (UA) Normal Urine Ketones Negative Urine Blood 3+ H Urine Nitrate Negative Urine Bilirubin Negative Urine Urobilinogen 2.0 Ur Leukocyte Esterase 3+ H Urine WBC (Auto) 934 H Urine RBC (Auto) 95 H Urine WBC Clumps (Auto) Few H Urine Bacteria Many H Urine Yeast (Budding) Few H Stool Occult Blood Positive H Blood Type Antibody Screen Assessment & Plan - Assessment and Plan (Free Text) Assessment: Acute blood loss anemia with chronic anemia 2nd renal failure: continue transfuse to keep hb/Hct > 8/24 -Coagulopathy: suspect 2nd warfarin: vitamin K 10 mg IVPG + FFP x1 -Chronic heart failure: hold DANIEL, bumex as needed to avoid fluid overloaded states -A-fib: dig 0.5 mg now, hold AV harry tonny, hold AC in light of bleeding -CT abd/pelvis pending -Bi-PAP PRN -GI eval pending -IV PPI -BGM q6hrs ISS aspart -cc time 37 minutes Patient will benefit from ICU level care -2 large bore IV access. Currently no acute indication for central line, if hemodyanmically unstable, will place central line d/w ICU team and ER team - Date & Time Date: 02/21/18 Time: 20:08
[2018-02-21] MEDS ORDERED: Digoxin 500 mcg/2ml (0.5 mg/2ml) Inj IVP ONE (20:12)
[2018-02-21 20:21] LABS: TROPONIN I 0.079 ng/mL (0.00-0.120)
[2018-02-21] MEDS: (Novolog) Insulin Aspart, Recombinant 100 u/ml 10 ml vial SC SCH (20:45)
[2018-02-21 20:46] LABS: BASO # 0.1 K/uL (0.0-0.2); BASO % 1.1 % (0.0-2.0); EOS # 0.1 K/uL (0.0-0.7); EOS % 3.1 % (0.0-4.0); LYMPH # 0.9 K/uL (1.0-4.3); LYMPH % 19.9 % (20.0-40.0); MEAN CELL VOLUME 96.1 fL (80.0-94.0); MEAN CORPUSCULAR HEMOGLOBIN 30.7 pg (27.0-31.0); MEAN CORPUSCULAR HGB CONC 31.9 g/dL (33.0-37.0); MEAN PLATELET VOLUME 9.7 fL (7.2-11.7); MONO # 0.5 K/uL (0.0-0.8); MONO % 9.7 % (0.0-10.0); NEUT # 3.1 K/uL (1.8-7.0); NEUT % 66.2 % (50.0-75.0); RBC 1.8 Mil/uL (4.40-5.90); RED CELL DISTRIBUTION WIDTH 18.6 % (11.5-14.5); WHITE BLOOD COUNT 4.7 K/uL (4.8-10.8)
[2018-02-21 20:47] VITALS: PULSE 140
[2018-02-21 21:00] LABS: HEMOGLOBIN 5.5 g/dL (12.0-18.0)
[2018-02-21 21:58] LABS: URINE BACTERIA FEW (<OCC); URINE BILIRUBIN NEGATIVE (NEGATIVE); URINE BLOOD 1+ (NEGATIVE); URINE CLARITY Turbid (Clear); URINE COLOR Yellow (YELLOW); URINE GLUCOSE (UA) NORMAL (Normal); URINE LEUKOCYTE ESTERASE 3+ Leu/uL (Negative); URINE PROTEIN 2+ mg/dL (NEGATIVE); WBC CLUMPS MANY /hpf
[2018-02-21 22:06] LABS: BARBITURATES, UR NEGATIVE (NEGATIVE); BENZODIAZEPINES, UR NEGATIVE (NEGATIVE); OPIATES, UR NEGATIVE (NEGATIVE); PHENCYCLIDINE, UR NEGATIVE (NEGATIVE)
[2018-02-21] MEDS: Piperacill/Tazo 2.25gm in Dex 2.25 GM/50 ML BAG IVPB SCH (22:42)
[2018-02-22] MEDS ORDERED: Phytonadione 10 mg/ml Inj (Adult) IV STA (00:59)
[2018-02-22] MEDS: Pantoprazole 80 MG in Sodium Chloride 0.9% 100 ML IVP SCH ×2 (02:40→05:15)
[2018-02-22] MEDS: (Novolog) Insulin Aspart, Recombinant 100 u/ml 10 ml vial SC SCH ×3 (02:45→19:00)
[2018-02-22] MEDS: Piperacill/Tazo 2.25gm in Dex 2.25 GM/50 ML BAG IVPB SCH ×3 (04:25→21:45)
[2018-02-22 06:30] LABS: BASO # 0.1 K/uL (0.0-0.2); BASO % 1.3 % (0.0-2.0); EOS # 0.2 K/uL (0.0-0.7); LYMPH # 1.5 K/uL (1.0-4.3); LYMPH % 27.2 % (20.0-40.0); MEAN CELL VOLUME 91.5 fL (80.0-94.0); MEAN CORPUSCULAR HGB CONC 33.8 g/dL (33.0-37.0); MEAN PLATELET VOLUME 9.3 fL (7.2-11.7); MONO # 0.4 K/uL (0.0-0.8); MONO % 8.1 % (0.0-10.0); NEUT # 3.3 K/uL (1.8-7.0); NEUT % 60.4 % (50.0-75.0); RBC 2.07 Mil/uL (4.40-5.90); RED CELL DISTRIBUTION WIDTH 18.7 % (11.5-14.5); WHITE BLOOD COUNT 5.4 K/uL (4.8-10.8)
[2018-02-22 06:33] LABS: HEMOGLOBIN 6.4 g/dL (12.0-18.0)
[2018-02-22 06:45] LABS: ALB/GLOB RATIO 0.9 (1.0-2.1); ALBUMIN 2.6 g/dL (3.5-5.0)
[2018-02-22 06:46] LABS: INR 1.8; PROTHROMBIN TIME 19.7 SECONDS (9.7-12.2)
[2018-02-22] MEDS ORDERED: Morphine 4 MG/ML VIAL IVP STA (09:23)
--- NOTE | 2018-02-22 10:10 | CP.CCUPN ---
<Paulina Brown - Last Filed: 02/22/18 10:06> CCU Subjective - Physician Review Subjective (Free Text): 02/22/18 10:06 PGY-1 Critical Care Progress Note for Dr. Gómez's service Patient seen and examined at bedside. Patient has baseline AMS. Patient is noncommunicative but was making screaming noises. Patient was noted to have elevated heart rate was given morphine for pain relief as patient has back pain from chart review. Critical Care Time Spent (in minutes): 35 CCU Objective - Vital Signs / Intake & Output Vital Signs (Last 4 hours): Vital Signs Temp Pulse Resp BP Pulse Ox 02/22/18 09:24 98.3 F 134 H 25 H 116/73 02/22/18 09:06 98.3 F 143 H 29 H 118/79 02/22/18 07:41 126 H 25 H 120/96 H 02/22/18 07:00 118 H 15 100 02/22/18 06:42 117 H 17 108/59 L 100 Intake and Output (Last 8hrs): Intake & Output 02/21/18 02/22/18 02/22/18 22:59 06:59 14:59 Intake Total 160 980 0 Output Total 200 455 Balance -40 525 0 Weight 170 lb 202 lb Intake: Intake, IV Amount 160 880 Left Forearm 50 Right Antecubital 100 800 Right Forearm 10 80 Oral 0 Blood Product 0 0 Red Blood Cells Cpd As1 0 Lr Unit [id number] Red Blood Cells Cpd As1 0 Lr Unit [id number] Other 100 Red Blood Cells Cpd As1 100 Lr Unit [id number] Output: Urine 200 455 Urethral (Paulson) 200 455 Other: Voiding Method Indwelling Catheter # Bowel Movements 1 1 - Physical Exam Physical Exam Limitations: Positive for: Altered Mental Status Head: Positive for: Atraumatic, Normocephalic Extroacular Muscles: Positive for: EOMI Mouth: Positive for: Dry Respiratory/Chest: Positive for: Clear to Auscultation, Good Air Exchange. Negative for: Respiratory Distress, Accessory Muscle Use Cardiovascular: Positive for: Normal S1, S2, Tachycardic Abdomen: Positive for: Normal Bowel Sounds. Negative for: Tenderness, Distention, Peritoneal Signs Upper Extremity: Positive for: Normal Inspection. Negative for: Cyanosis, Edema Lower Extremity: Positive for: Normal Inspection. Negative for: Edema Skin: Positive for: Dry, Normal Color. Negative for: Rashes, Diaphoretic Psychiatric: Negative for: Oriented x 3 - Medications Active Medications: Active Medications Generic Name Dose Route Start Last Admin Trade Name Freq PRN Reason Stop Dose Admin Pantoprazole Sodium 80 mg/ 100 mls @ 10 mls/hr 02/21/18 19:15 02/22/18 05:15 Sodium Chloride IVP Not Given .Q10H WALDEMAR 8 MG/HR Piperacillin Sod/Tazobactam Sod 2.25 gm in 50 mls @ 100 mls/hr 02/21/18 20:45 02/22/18 04:25 Zosyn 2.25 Gm Iv Premix IVPB 02/26/18 20:46 100 mls/hr Q8H [facility] Administration Protocol Insulin Aspart 0 unit 02/22/18 12:00 Novolog SC Q6H [facility] Protocol - Patient Studies Lab Studies: Lab Studies 02/22/18 02/22/18 02/22/18 Range/Units 06:26 06:26 06:26 WBC 5.4 (4.8-10.8) K/uL RBC 2.07 L (4.40-5.90) Mil/uL Hgb 6.4 L* (12.0-18.0) g/dL Hct 19.0 L (35.0-51.0) % MCV 91.5 D (80.0-94.0) fL MCH 31.0 (27.0-31.0) pg MCHC 33.8 (33.0-37.0) g/dL RDW 18.7 H (11.5-14.5) % Plt Count 129 L (130-400) K/uL MPV 9.3 (7.2-11.7) fL Neut % (Auto) 60.4 (50.0-75.0) % Lymph % (Auto) 27.2 (20.0-40.0) % [place] % (Auto) 8.1 (0.0-10.0) % Eos % (Auto) 3.0 (0.0-4.0) % Baso % (Auto) 1.3 (0.0-2.0) % Neut # (Auto) 3.3 (1.8-7.0) K/uL Lymph # (Auto) 1.5 (1.0-4.3) K/uL [place] # (Auto) 0.4 (0.0-0.8) K/uL Eos # (Auto) 0.2 (0.0-0.7) K/uL Baso # (Auto) 0.1 (0.0-0.2) K/uL PT 19.7 H D (9.7-12.2) SECONDS INR 1.8 D APTT (21-34) SECONDS Sodium 142 (132-148) mmol/L Potassium 4.3 (3.6-5.2) mmol/L Chloride 108 H (98-107) mmol/L Carbon Dioxide 27 (22-30) mmol/L Anion Gap 12 (10-20) BUN 56 H (9-20) mg/dL Creatinine 2.1 H (0.8-1.5) mg/dL Est GFR ( Amer) 37 Est GFR (Non-Af Amer) 31 Random Glucose 168 H D (75-110) mg/dL Lactic Acid (0.7-2.1) mmol/L Calcium 8.0 L (8.6-10.4) mg/dl Phosphorus 2.8 (2.5-4.5) mg/dL Magnesium 1.8 (1.6-2.3) mg/dL Total Bilirubin 1.4 H (0.2-1.3) mg/dL AST 17 (17-59) U/L ALT 23 (21-72) U/L Alkaline Phosphatase 76 (38-126) U/L Troponin I (0.00-0.120) ng/mL NT-Pro-B Natriuret Pep (0-900) pg/mL Total Protein 5.4 L (6.3-8.3) g/dL Albumin 2.6 L (3.5-5.0) g/dL Globulin 2.8 (2.2-3.9) gm/dL Albumin/Globulin Ratio 0.9 L (1.0-2.1) Lipase (23-300) U/L Urine Color (YELLOW) Urine Clarity (Clear) Urine pH (5.0-8.0) Ur Specific [place] (1.003-1.030) Urine Protein (NEGATIVE) mg/dL Urine Glucose (UA) (Normal) mg/dL Urine Ketones (NEGATIVE) mg/dL Urine Blood (NEGATIVE) Urine Nitrate (NEGATIVE) Urine Bilirubin (NEGATIVE) Urine Urobilinogen (0.2-1.0) mg/dL Ur Leukocyte Esterase (Negative) Shayy/uL Urine WBC (Auto) (0-5) /hpf Urine RBC (Auto) (0-3) /hpf Urine WBC Clumps (Auto) (NONE) /hpf Urine Bacteria (<OCC) Urine Yeast (Budding) (NEGATIVE) /hpf Stool Occult Blood (NEGATIVE) Urine Opiates Screen (NEGATIVE) Urine Methadone Screen (NEGATIVE) Ur Barbiturates Screen (NEGATIVE) Ur Phencyclidine Scrn (NEGATIVE) Ur Amphetamines Screen (NEGATIVE) U Benzodiazepines Scrn (NEGATIVE) U Oth Cocaine Metabols (NEGATIVE) U Cannabinoids Screen (NEGATIVE) Blood Type Antibody Screen 02/22/18 02/22/18 02/21/18 Range/Units 06:26 03:21 21:45 WBC (4.8-10.8) K/uL RBC (4.40-5.90) Mil/uL Hgb (12.0-18.0) g/dL Hct (35.0-51.0) % MCV (80.0-94.0) fL MCH (27.0-31.0) pg MCHC (33.0-37.0) g/dL RDW (11.5-14.5) % Plt Count (130-400) K/uL MPV (7.2-11.7) fL Neut % (Auto) (50.0-75.0) % Lymph % (Auto) (20.0-40.0) % [place] % (Auto) (0.0-10.0) % Eos % (Auto) (0.0-4.0) % Baso % (Auto) (0.0-2.0) % Neut # (Auto) (1.8-7.0) K/uL Lymph # (Auto) (1.0-4.3) K/uL [place] # (Auto) (0.0-0.8) K/uL Eos # (Auto) (0.0-0.7) K/uL Baso # (Auto) (0.0-0.2) K/uL PT (9.7-12.2) SECONDS INR APTT (21-34) SECONDS Sodium (132-148) mmol/L Potassium (3.6-5.2) mmol/L Chloride (98-107) mmol/L Carbon Dioxide (22-30) mmol/L Anion Gap (10-20) BUN (9-20) mg/dL Creatinine (0.8-1.5) mg/dL Est GFR ( Amer) Est GFR (Non-Af Amer) Random Glucose (75-110) mg/dL Lactic Acid 1.4 (0.7-2.1) mmol/L Calcium (8.6-10.4) mg/dl Phosphorus (2.5-4.5) mg/dL Magnesium 1.9 (1.6-2.3) mg/dL Total Bilirubin (0.2-1.3) mg/dL AST (17-59) U/L ALT (21-72) U/L Alkaline Phosphatase (38-126) U/L Troponin I (0.00-0.120) ng/mL NT-Pro-B Natriuret Pep (0-900) pg/mL Total Protein (6.3-8.3) g/dL Albumin (3.5-5.0) g/dL Globulin (2.2-3.9) gm/dL Albumin/Globulin Ratio (1.0-2.1) Lipase (23-300) U/L Urine Color Yellow (YELLOW) Urine Clarity Turbid (Clear) Urine pH 5.0 (5.0-8.0) Ur Specific [place] 1.011 (1.003-1.030) Urine Protein 2+ H (NEGATIVE) mg/dL Urine Glucose (UA) Normal (Normal) mg/dL Urine Ketones Negative (NEGATIVE) mg/dL Urine Blood 1+ H (NEGATIVE) Urine Nitrate Negative (NEGATIVE) Urine Bilirubin Negative (NEGATIVE) Urine Urobilinogen 2.0 (0.2-1.0) mg/dL Ur Leukocyte Esterase 3+ H (Negative) Shayy/uL Urine WBC (Auto) 2698 H (0-5) /hpf Urine RBC (Auto) 35 H (0-3) /hpf Urine WBC Clumps (Auto) Many H (NONE) /hpf Urine Bacteria Few H (<OCC) Urine Yeast (Budding) Few H (NEGATIVE) /hpf Stool Occult Blood (NEGATIVE) Urine Opiates Screen (NEGATIVE) Urine Methadone Screen (NEGATIVE) Ur Barbiturates Screen (NEGATIVE) Ur Phencyclidine Scrn (NEGATIVE) Ur Amphetamines Screen (NEGATIVE) U Benzodiazepines Scrn (NEGATIVE) U Oth Cocaine Metabols (NEGATIVE) U Cannabinoids Screen (NEGATIVE) Blood Type Antibody Screen 02/21/18 02/21/18 02/21/18 Range/Units 21:45 21:15 20:42 WBC 4.7 L (4.8-10.8) K/uL RBC 1.80 L (4.40-5.90) Mil/uL Hgb 5.5 L* (12.0-18.0) g/dL Hct 17.3 L (35.0-51.0) % MCV 96.1 H (80.0-94.0) fL MCH 30.7 (27.0-31.0) pg MCHC 31.9 L (33.0-37.0) g/dL RDW 18.6 H (11.5-14.5) % Plt Count 129 L (130-400) K/uL MPV 9.7 (7.2-11.7) fL Neut % (Auto) 66.2 (50.0-75.0) % Lymph % (Auto) 19.9 L (20.0-40.0) % [place] % (Auto) 9.7 (0.0-10.0) % Eos % (Auto) 3.1 (0.0-4.0) % Baso % (Auto) 1.1 (0.0-2.0) % Neut # (Auto) 3.1 (1.8-7.0) K/uL Lymph # (Auto) 0.9 L (1.0-4.3) K/uL [place] # (Auto) 0.5 (0.0-0.8) K/uL Eos # (Auto) 0.1 (0.0-0.7) K/uL Baso # (Auto) 0.1 (0.0-0.2) K/uL PT (9.7-12.2) SECONDS INR APTT (21-34) SECONDS Sodium (132-148) mmol/L Potassium (3.6-5.2) mmol/L Chloride (98-107) mmol/L Carbon Dioxide (22-30) mmol/L Anion Gap (10-20) BUN (9-20) mg/dL Creatinine (0.8-1.5) mg/dL Est GFR ( Amer) Est GFR (Non-Af Amer) Random Glucose (75-110) mg/dL Lactic Acid 1.7 (0.7-2.1) mmol/L Calcium (8.6-10.4) mg/dl Phosphorus (2.5-4.5) mg/dL Magnesium (1.6-2.3) mg/dL Total Bilirubin (0.2-1.3) mg/dL AST (17-59) U/L ALT (21-72) U/L Alkaline Phosphatase (38-126) U/L Troponin I (0.00-0.120) ng/mL NT-Pro-B Natriuret Pep (0-900) pg/mL Total Protein (6.3-8.3) g/dL Albumin (3.5-5.0) g/dL Globulin (2.2-3.9) gm/dL Albumin/Globulin Ratio (1.0-2.1) Lipase (23-300) U/L Urine Color (YELLOW) Urine Clarity (Clear) Urine pH (5.0-8.0) Ur Specific [place] (1.003-1.030) Urine Protein (NEGATIVE) mg/dL Urine Glucose (UA) (Normal) mg/dL Urine Ketones (NEGATIVE) mg/dL Urine Blood (NEGATIVE) Urine Nitrate (NEGATIVE) Urine Bilirubin (NEGATIVE) Urine Urobilinogen (0.2-1.0) mg/dL Ur Leukocyte Esterase (Negative) Shayy/uL Urine WBC (Auto) (0-5) /hpf Urine RBC (Auto) (0-3) /hpf Urine WBC Clumps (Auto) (NONE) /hpf Urine Bacteria (<OCC) Urine Yeast (Budding) (NEGATIVE) /hpf Stool Occult Blood (NEGATIVE) Urine Opiates Screen Negative (NEGATIVE) Urine Methadone Screen Negative (NEGATIVE) Ur Barbiturates Screen Negative (NEGATIVE) Ur Phencyclidine Scrn Negative (NEGATIVE) Ur Amphetamines Screen Negative (NEGATIVE) U Benzodiazepines Scrn Negative (NEGATIVE) U Oth Cocaine Metabols Negative (NEGATIVE) U Cannabinoids Screen Negative (NEGATIVE) Blood Type Antibody Screen 02/21/18 02/21/18 02/21/18 Range/Units 19:55 18:26 17:50 WBC (4.8-10.8) K/uL RBC (4.40-5.90) Mil/uL Hgb (12.0-18.0) g/dL Hct (35.0-51.0) % MCV (80.0-94.0) fL MCH (27.0-31.0) pg MCHC (33.0-37.0) g/dL RDW (11.5-14.5) % Plt Count (130-400) K/uL MPV (7.2-11.7) fL Neut % (Auto) (50.0-75.0) % Lymph % (Auto) (20.0-40.0) % [place] % (Auto) (0.0-10.0) % Eos % (Auto) (0.0-4.0) % Baso % (Auto) (0.0-2.0) % Neut # (Auto) (1.8-7.0) K/uL Lymph # (Auto) (1.0-4.3) K/uL [place] # (Auto) (0.0-0.8) K/uL Eos # (Auto) (0.0-0.7) K/uL Baso # (Auto) (0.0-0.2) K/uL PT 39.3 H (9.7-12.2) SECONDS INR 3.6 H* APTT 31 (21-34) SECONDS Sodium (132-148) mmol/L Potassium (3.6-5.2) mmol/L Chloride (98-107) mmol/L Carbon Dioxide (22-30) mmol/L Anion Gap (10-20) BUN (9-20) mg/dL Creatinine (0.8-1.5) mg/dL Est GFR ( Amer) Est GFR (Non-Af Amer) Random Glucose (75-110) mg/dL Lactic Acid (0.7-2.1) mmol/L Calcium (8.6-10.4) mg/dl Phosphorus (2.5-4.5) mg/dL Magnesium (1.6-2.3) mg/dL Total Bilirubin (0.2-1.3) mg/dL AST (17-59) U/L ALT (21-72) U/L Alkaline Phosphatase (38-126) U/L Troponin I 0.0790 (0.00-0.120) ng/mL NT-Pro-B Natriuret Pep 81316 H (0-900) pg/mL Total Protein (6.3-8.3) g/dL Albumin (3.5-5.0) g/dL Globulin (2.2-3.9) gm/dL Albumin/Globulin Ratio (1.0-2.1) Lipase (23-300) U/L Urine Color (YELLOW) Urine Clarity (Clear) Urine pH (5.0-8.0) Ur Specific [place] (1.003-1.030) Urine Protein (NEGATIVE) mg/dL Urine Glucose (UA) (Normal) mg/dL Urine Ketones (NEGATIVE) mg/dL Urine Blood (NEGATIVE) Urine Nitrate (NEGATIVE) Urine Bilirubin (NEGATIVE) Urine Urobilinogen (0.2-1.0) mg/dL Ur Leukocyte Esterase (Negative) Shayy/uL Urine WBC (Auto) (0-5) /hpf Urine RBC (Auto) (0-3) /hpf Urine WBC Clumps (Auto) (NONE) /hpf Urine Bacteria (<OCC) Urine Yeast (Budding) (NEGATIVE) /hpf Stool Occult Blood Positive H (NEGATIVE) Urine Opiates Screen (NEGATIVE) Urine Methadone Screen (NEGATIVE) Ur Barbiturates Screen (NEGATIVE) Ur Phencyclidine Scrn (NEGATIVE) Ur Amphetamines Screen (NEGATIVE) U Benzodiazepines Scrn (NEGATIVE) U Oth Cocaine Metabols (NEGATIVE) U Cannabinoids Screen (NEGATIVE) Blood Type Antibody Screen 02/21/18 02/21/18 02/21/18 Range/Units 17:46 17:40 17:40 WBC (4.8-10.8) K/uL RBC (4.40-5.90) Mil/uL Hgb (12.0-18.0) g/dL Hct (35.0-51.0) % MCV (80.0-94.0) fL MCH (27.0-31.0) pg MCHC (33.0-37.0) g/dL RDW (11.5-14.5) % Plt Count (130-400) K/uL MPV (7.2-11.7) fL Neut % (Auto) (50.0-75.0) % Lymph % (Auto) (20.0-40.0) % [place] % (Auto) (0.0-10.0) % Eos % (Auto) (0.0-4.0) % Baso % (Auto) (0.0-2.0) % Neut # (Auto) (1.8-7.0) K/uL Lymph # (Auto) (1.0-4.3) K/uL [place] # (Auto) (0.0-0.8) K/uL Eos # (Auto) (0.0-0.7) K/uL Baso # (Auto) (0.0-0.2) K/uL PT (9.7-12.2) SECONDS INR APTT (21-34) SECONDS Sodium 140 (132-148) mmol/L Potassium 4.3 (3.6-5.2) mmol/L Chloride 105 (98-107) mmol/L Carbon Dioxide 27 (22-30) mmol/L Anion Gap 13 (10-20) BUN 58 H (9-20) mg/dL Creatinine 2.1 H (0.8-1.5) mg/dL Est GFR ( Amer) 37 Est GFR (Non-Af Amer) 31 Random Glucose 227 H D (75-110) mg/dL Lactic Acid (0.7-2.1) mmol/L Calcium 8.4 L (8.6-10.4) mg/dl Phosphorus (2.5-4.5) mg/dL Magnesium (1.6-2.3) mg/dL Total Bilirubin 0.7 (0.2-1.3) mg/dL AST 17 (17-59) U/L ALT 17 L (21-72) U/L Alkaline Phosphatase 82 (38-126) U/L Troponin I 0.0820 (0.00-0.120) ng/mL NT-Pro-B Natriuret Pep (0-900) pg/mL Total Protein 5.6 L (6.3-8.3) g/dL Albumin 2.7 L (3.5-5.0) g/dL Globulin 2.9 (2.2-3.9) gm/dL Albumin/Globulin Ratio 0.9 L (1.0-2.1) Lipase 13 L (23-300) U/L Urine Color Yellow (YELLOW) Urine Clarity Hazy (Clear) Urine pH 5.0 (5.0-8.0) Ur Specific [place] 1.011 (1.003-1.030) Urine Protein 2+ H (NEGATIVE) mg/dL Urine Glucose (UA) Normal (Normal) mg/dL Urine Ketones Negative (NEGATIVE) mg/dL Urine Blood 3+ H (NEGATIVE) Urine Nitrate Negative (NEGATIVE) Urine Bilirubin Negative (NEGATIVE) Urine Urobilinogen 2.0 (0.2-1.0) mg/dL Ur Leukocyte Esterase 3+ H (Negative) Shayy/uL Urine WBC (Auto) 934 H (0-5) /hpf Urine RBC (Auto) 95 H (0-3) /hpf Urine WBC Clumps (Auto) Few H (NONE) /hpf Urine Bacteria Many H (<OCC) Urine Yeast (Budding) Few H (NEGATIVE) /hpf Stool Occult Blood (NEGATIVE) Urine Opiates Screen (NEGATIVE) Urine Methadone Screen (NEGATIVE) Ur Barbiturates Screen (NEGATIVE) Ur Phencyclidine Scrn (NEGATIVE) Ur Amphetamines Screen (NEGATIVE) U Benzodiazepines Scrn (NEGATIVE) U Oth Cocaine Metabols (NEGATIVE) U Cannabinoids Screen (NEGATIVE) Blood Type A POSITIVE Antibody Screen Negative 02/21/18 Range/Units 17:40 WBC 4.2 L (4.8-10.8) K/uL RBC 1.84 L (4.40-5.90) Mil/uL Hgb 5.7 L* D (12.0-18.0) g/dL Hct 17.7 L (35.0-51.0) % MCV 95.8 H (80.0-94.0) fL MCH 31.0 (27.0-31.0) pg MCHC 32.4 L (33.0-37.0) g/dL RDW 18.9 H (11.5-14.5) % Plt Count 126 L D (130-400) K/uL MPV 9.6 (7.2-11.7) fL Neut % (Auto) 60.6 (50.0-75.0) % Lymph % (Auto) 26.2 (20.0-40.0) % [place] % (Auto) 9.3 (0.0-10.0) % Eos % (Auto) 2.6 (0.0-4.0) % Baso % (Auto) 1.3 (0.0-2.0) % Neut # (Auto) 2.5 (1.8-7.0) K/uL Lymph # (Auto) 1.1 (1.0-4.3) K/uL [place] # (Auto) 0.4 (0.0-0.8) K/uL Eos # (Auto) 0.1 (0.0-0.7) K/uL Baso # (Auto) 0.1 (0.0-0.2) K/uL PT (9.7-12.2) SECONDS INR APTT (21-34) SECONDS Sodium (132-148) mmol/L Potassium (3.6-5.2) mmol/L Chloride (98-107) mmol/L Carbon Dioxide (22-30) mmol/L Anion Gap (10-20) BUN (9-20) mg/dL Creatinine (0.8-1.5) mg/dL Est GFR ( Amer) Est GFR (Non-Af Amer) Random Glucose (75-110) mg/dL Lactic Acid (0.7-2.1) mmol/L Calcium (8.6-10.4) mg/dl Phosphorus (2.5-4.5) mg/dL Magnesium (1.6-2.3) mg/dL Total Bilirubin (0.2-1.3) mg/dL AST (17-59) U/L ALT (21-72) U/L Alkaline Phosphatase (38-126) U/L Troponin I (0.00-0.120) ng/mL NT-Pro-B Natriuret Pep (0-900) pg/mL Total Protein (6.3-8.3) g/dL Albumin (3.5-5.0) g/dL Globulin (2.2-3.9) gm/dL Albumin/Globulin Ratio (1.0-2.1) Lipase (23-300) U/L Urine Color (YELLOW) Urine Clarity (Clear) Urine pH (5.0-8.0) Ur Specific [place] (1.003-1.030) Urine Protein (NEGATIVE) mg/dL Urine Glucose (UA) (Normal) mg/dL Urine Ketones (NEGATIVE) mg/dL Urine Blood (NEGATIVE) Urine Nitrate (NEGATIVE) Urine Bilirubin (NEGATIVE) Urine Urobilinogen (0.2-1.0) mg/dL Ur Leukocyte Esterase (Negative) Shayy/uL Urine WBC (Auto) (0-5) /hpf Urine RBC (Auto) (0-3) /hpf Urine WBC Clumps (Auto) (NONE) /hpf Urine Bacteria (<OCC) Urine Yeast (Budding) (NEGATIVE) /hpf Stool Occult Blood (NEGATIVE) Urine Opiates Screen (NEGATIVE) Urine Methadone Screen (NEGATIVE) Ur Barbiturates Screen (NEGATIVE) Ur Phencyclidine Scrn (NEGATIVE) Ur Amphetamines Screen (NEGATIVE) U Benzodiazepines Scrn (NEGATIVE) U Oth Cocaine Metabols (NEGATIVE) U Cannabinoids Screen (NEGATIVE) Blood Type Antibody Screen Laboratory Results - last 24 hr 02/21/18 02/21/18 02/21/18 17:40 17:40 17:40 WBC 4.2 L RBC 1.84 L Hgb 5.7 L* D Hct 17.7 L MCV 95.8 H MCH 31.0 MCHC 32.4 L RDW 18.9 H Plt Count 126 L D MPV 9.6 Neut % (Auto) 60.6 Lymph % (Auto) 26.2 [place] % (Auto) 9.3 Eos % (Auto) 2.6 Baso % (Auto) 1.3 Neut # (Auto) 2.5 Lymph # (Auto) 1.1 [place] # (Auto) 0.4 Eos # (Auto) 0.1 Baso # (Auto) 0.1 PT INR APTT Sodium 140 Potassium 4.3 Chloride 105 Carbon Dioxide 27 Anion Gap 13 BUN 58 H Creatinine 2.1 H Est GFR ( Amer) 37 Est GFR (Non-Af Amer) 31 Random Glucose 227 H D Lactic Acid Calcium 8.4 L Phosphorus Magnesium Total Bilirubin 0.7 AST 17 ALT 17 L Alkaline Phosphatase 82 Troponin I 0.0820 NT-Pro-B Natriuret Pep Total Protein 5.6 L Albumin 2.7 L Globulin 2.9 Albumin/Globulin Ratio 0.9 L Lipase 13 L Urine Color Urine Clarity Urine pH Ur Specific [place] Urine Protein Urine Glucose (UA) Urine Ketones Urine Blood Urine Nitrate Urine Bilirubin Urine Urobilinogen Ur Leukocyte Esterase Urine WBC (Auto) Urine RBC (Auto) Urine WBC Clumps (Auto) Urine Bacteria Urine Yeast (Budding) Stool Occult Blood Urine Opiates Screen Urine Methadone Screen Ur Barbiturates Screen Ur Phencyclidine Scrn Ur Amphetamines Screen U Benzodiazepines Scrn U Oth Cocaine Metabols U Cannabinoids Screen Blood Type A POSITIVE Antibody Screen Negative 02/21/18 02/21/18 02/21/18 17:46 17:50 18:26 WBC RBC Hgb Hct MCV MCH MCHC RDW Plt Count MPV Neut % (Auto) Lymph % (Auto) [place] % (Auto) Eos % (Auto) Baso % (Auto) Neut # (Auto) Lymph # (Auto) [place] # (Auto) Eos # (Auto) Baso # (Auto) PT 39.3 H INR 3.6 H* APTT 31 Sodium Potassium Chloride Carbon Dioxide Anion Gap BUN Creatinine Est GFR ( Amer) Est GFR (Non-Af Amer) Random Glucose Lactic Acid Calcium Phosphorus Magnesium Total Bilirubin AST ALT Alkaline Phosphatase Troponin I NT-Pro-B Natriuret Pep Total Protein Albumin Globulin Albumin/Globulin Ratio Lipase Urine Color Yellow Urine Clarity Hazy Urine pH 5.0 Ur Specific [place] 1.011 Urine Protein 2+ H Urine Glucose (UA) Normal Urine Ketones Negative Urine Blood 3+ H Urine Nitrate Negative Urine Bilirubin Negative Urine Urobilinogen 2.0 Ur Leukocyte Esterase 3+ H Urine WBC (Auto) 934 H Urine RBC (Auto) 95 H Urine WBC Clumps (Auto) Few H Urine Bacteria Many H Urine Yeast (Budding) Few H Stool Occult Blood Positive H Urine Opiates Screen Urine Methadone Screen Ur Barbiturates Screen Ur Phencyclidine Scrn Ur Amphetamines Screen U Benzodiazepines Scrn U Oth Cocaine Metabols U Cannabinoids Screen Blood Type Antibody Screen 02/21/18 02/21/18 02/21/18 19:55 20:42 21:15 WBC 4.7 L RBC 1.80 L Hgb 5.5 L* Hct 17.3 L MCV 96.1 H MCH 30.7 MCHC 31.9 L RDW 18.6 H Plt Count 129 L MPV 9.7 Neut % (Auto) 66.2 Lymph % (Auto) 19.9 L [place] % (Auto) 9.7 Eos % (Auto) 3.1 Baso % (Auto) 1.1 Neut # (Auto) 3.1 Lymph # (Auto) 0.9 L [place] # (Auto) 0.5 Eos # (Auto) 0.1 Baso # (Auto) 0.1 PT INR APTT Sodium Potassium Chloride Carbon Dioxide Anion Gap BUN Creatinine Est GFR ( Amer) Est GFR (Non-Af Amer) Random Glucose Lactic Acid 1.7 Calcium Phosphorus Magnesium Total Bilirubin AST ALT Alkaline Phosphatase Troponin I 0.0790 NT-Pro-B Natriuret Pep 72459 H Total Protein Albumin Globulin Albumin/Globulin Ratio Lipase Urine Color Urine Clarity Urine pH Ur Specific [place] Urine Protein Urine Glucose (UA) Urine Ketones Urine Blood Urine Nitrate Urine Bilirubin Urine Urobilinogen Ur Leukocyte Esterase Urine WBC (Auto) Urine RBC (Auto) Urine WBC Clumps (Auto) Urine Bacteria Urine Yeast (Budding) Stool Occult Blood Urine Opiates Screen Urine Methadone Screen Ur Barbiturates Screen Ur Phencyclidine Scrn Ur Amphetamines Screen U Benzodiazepines Scrn U Oth Cocaine Metabols U Cannabinoids Screen Blood Type Antibody Screen 02/21/18 02/21/18 02/22/18 21:45 21:45 03:21 WBC RBC Hgb Hct MCV MCH MCHC RDW Plt Count MPV Neut % (Auto) Lymph % (Auto) [place] % (Auto) Eos % (Auto) Baso % (Auto) Neut # (Auto) Lymph # (Auto) [place] # (Auto) Eos # (Auto) Baso # (Auto) PT INR APTT Sodium Potassium Chloride Carbon Dioxide Anion Gap BUN Creatinine Est GFR ( Amer) Est GFR (Non-Af Amer) Random Glucose Lactic Acid Calcium Phosphorus Magnesium 1.9 Total Bilirubin AST ALT Alkaline Phosphatase Troponin I NT-Pro-B Natriuret Pep Total Protein Albumin Globulin Albumin/Globulin Ratio Lipase Urine Color Yellow Urine Clarity Turbid Urine pH 5.0 Ur Specific [place] 1.011 Urine Protein 2+ H Urine Glucose (UA) Normal Urine Ketones Negative Urine Blood 1+ H Urine Nitrate Negative Urine Bilirubin Negative Urine Urobilinogen 2.0 Ur Leukocyte Esterase 3+ H Urine WBC (Auto) 2698 H Urine RBC (Auto) 35 H Urine WBC Clumps (Auto) Many H Urine Bacteria Few H Urine Yeast (Budding) Few H Stool Occult Blood Urine Opiates Screen Negative Urine Methadone Screen Negative Ur Barbiturates Screen Negative Ur Phencyclidine Scrn Negative Ur Amphetamines Screen Negative U Benzodiazepines Scrn Negative U Oth Cocaine Metabols Negative U Cannabinoids Screen Negative Blood Type Antibody Screen 02/22/18 02/22/18 02/22/18 06:26 06:26 06:26 WBC 5.4 RBC 2.07 L Hgb 6.4 L* Hct 19.0 L MCV 91.5 D MCH 31.0 MCHC 33.8 RDW 18.7 H Plt Count 129 L MPV 9.3 Neut % (Auto) 60.4 Lymph % (Auto) 27.2 [place] % (Auto) 8.1 Eos % (Auto) 3.0 Baso % (Auto) 1.3 Neut # (Auto) 3.3 Lymph # (Auto) 1.5 [place] # (Auto) 0.4 Eos # (Auto) 0.2 Baso # (Auto) 0.1 PT INR APTT Sodium 142 Potassium 4.3 Chloride 108 H Carbon Dioxide 27 Anion Gap 12 BUN 56 H Creatinine 2.1 H Est GFR ( Amer) 37 Est GFR (Non-Af Amer) 31 Random Glucose 168 H D Lactic Acid 1.4 Calcium 8.0 L Phosphorus 2.8 Magnesium 1.8 Total Bilirubin 1.4 H AST 17 ALT 23 Alkaline Phosphatase 76 Troponin I NT-Pro-B Natriuret Pep Total Protein 5.4 L Albumin 2.6 L Globulin 2.8 Albumin/Globulin Ratio 0.9 L Lipase Urine Color Urine Clarity Urine pH Ur Specific [place] Urine Protein Urine Glucose (UA) Urine Ketones Urine Blood Urine Nitrate Urine Bilirubin Urine Urobilinogen Ur Leukocyte Esterase Urine WBC (Auto) Urine RBC (Auto) Urine WBC Clumps (Auto) Urine Bacteria Urine Yeast (Budding) Stool Occult Blood Urine Opiates Screen Urine Methadone Screen Ur Barbiturates Screen Ur Phencyclidine Scrn Ur Amphetamines Screen U Benzodiazepines Scrn U Oth Cocaine Metabols U Cannabinoids Screen Blood Type Antibody Screen 02/22/18 06:26 WBC RBC Hgb Hct MCV MCH MCHC RDW Plt Count MPV Neut % (Auto) Lymph % (Auto) [place] % (Auto) Eos % (Auto) Baso % (Auto) Neut # (Auto) Lymph # (Auto) [place] # (Auto) Eos # (Auto) Baso # (Auto) PT 19.7 H D INR 1.8 D APTT Sodium Potassium Chloride Carbon Dioxide Anion Gap BUN Creatinine Est GFR ( Amer) Est GFR (Non-Af Amer) Random Glucose Lactic Acid Calcium Phosphorus Magnesium Total Bilirubin AST ALT Alkaline Phosphatase Troponin I NT-Pro-B Natriuret Pep Total Protein Albumin Globulin Albumin/Globulin Ratio Lipase Urine Color Urine Clarity Urine pH Ur Specific [place] Urine Protein Urine Glucose (UA) Urine Ketones Urine Blood Urine Nitrate Urine Bilirubin Urine Urobilinogen Ur Leukocyte Esterase Urine WBC (Auto) Urine RBC (Auto) Urine WBC Clumps (Auto) Urine Bacteria Urine Yeast (Budding) Stool Occult Blood Urine Opiates Screen Urine Methadone Screen Ur Barbiturates Screen Ur Phencyclidine Scrn Ur Amphetamines Screen U Benzodiazepines Scrn U Oth Cocaine Metabols U Cannabinoids Screen Blood Type Antibody Screen EKG/Cardiology Studies: Cardiology / EKG Studies 02/21/18 17:03 ELECTROCARDIOGRAM Stat Comment: Mode Of Transportation: BED Reason For Exam: GI Bleeding 02/21/18 17:18 ELECTROCARDIOGRAM Stat Comment: Mode Of Transportation: BED Reason For Exam: GI Bleeding 02/21/18 19:07 EKG [ELECTROCARDIOGRAM] Stat Comment: Mode Of Transportation: Reason For Exam: eval with severe anemia 02/21/18 20:12 EKG [ELECTROCARDIOGRAM] Stat Comment: Mode Of Transportation: Reason For Exam: eval with severe anemia Fingerstick Blood Sugar Results: 185 Results Reviewed to Date: Yes Review of Systems - Review of Systems Systems not reviewed;Unavailable: Altered Mental Status Critical Care Progress Note - Prophylaxis GI Prophylaxis GI: PPI - Prophylaxis DVT Prophylaxis DVT: Not Indicated Assessment/Plan - Assessment and Plan (Free Text) Assessment: Patient is a 77 yo male w/ PMH of HTN, CAD, DM2, Hypothyroidism, HLD, Afib on warfarin admitted for multiple episodes of bright blood per rectum. INR was noted to be elevated. On labs patient was noted to be anemic. Neuro AMS- likely patient baseline from [facility] Pul No acute issues CV no need for anti-htn agents (bp normal on lower side) AC held as patient has elevated INR with possible GI bleed GI BRB per rectum- GI consult placed- patient transferred for Endoscopy IV protonix Heme Low hgb- repleted w/3 units of pRBCs Elevated INR- given 1 x dose of FFP AC held Endo Novolog q6h waldemar- Hx of DM2 Renal Elevated Cr- from prior admissions seems like new baseline vs new onset 2/2 to hypovolemia from GI bleed Trend CMP in AM Chronic paulson for enlarged prostate U/A- 3+ L.E; 2698 WBCs ID Zosyn DVT ppx: Not indicated at this time GI ppx: Protonix IV Paulina Brown PGY-1 Medical Management d/w Dr. Gómez <Anderson Gómez S - Last Filed: 02/22/18 17:05> CCU Objective - Vital Signs / Intake & Output Vital Signs (Last 4 hours): Vital Signs Pulse Resp BP Pulse Ox 02/22/18 14:17 144 H 144/95 H 100 02/22/18 14:08 145 H 16 112/73 100 02/22/18 14:02 139 H 30 H 157/87 H 100 02/22/18 14:00 145 H 20 02/22/18 13:50 148 H 26 H 154/94 H 100 02/22/18 13:48 141 H 29 H 144/109 H 98 02/22/18 13:33 127 H 31 H 96/72 L 100 02/22/18 13:17 107 H 15 106/64 02/22/18 13:02 112 H 15 116/72 Intake and Output (Last 8hrs): Intake & Output 02/22/18 02/22/18 02/22/18 06:59 14:59 22:59 Intake Total 980 945 100 Output Total 455 1100 0 Balance 525 -155 100 Weight 202 lb Intake: Intake, IV Amount 880 80 0 Right Antecubital 800 Right Forearm 80 80 0 Blood Product 0 615 100 Red Blood Cells Cpd As1 0 Lr Unit [id number] Red Blood Cells Cpd As1 0 Lr Unit [id number] Red Blood Cells Cpd As1 325 Lr Unit [id number] Other 100 250 Red Blood Cells Cpd As1 100 Lr Unit [id number] Red Blood Cells Cpd As1 200 Lr Unit [id number] Output: Urine 455 1100 Urethral (Paulson) 455 1100 Emesis 0 0 Other: # Bowel Movements 1 1 - Medications Active Medications: Active Medications Generic Name Dose Route Start Last Admin Trade Name Freq PRN Reason Stop Dose Admin Piperacillin Sod/Tazobactam Sod 2.25 gm in 50 mls @ 100 mls/hr 02/21/18 20:45 02/22/18 12:34 Zosyn 2.25 Gm Iv Premix IVPB 02/26/18 20:46 100 mls/hr Q8H WALDEMAR Administration Protocol Insulin Aspart 0 unit 02/22/18 12:00 02/22/18 12:34 Novolog SC 1 u Q6H WALDEMAR Administration Protocol Pantoprazole Sodium 40 mg 02/22/18 11:00 02/22/18 13:29 Protonix Inj IVP 40 mg DAILY WALDEMAR Administration - Patient Studies Lab Studies: Lab Studies 02/22/18 02/22/18 02/22/18 Range/Units 11:58 06:26 06:26 WBC (4.8-10.8) K/uL RBC (4.40-5.90) Mil/uL Hgb (12.0-18.0) g/dL Hct (35.0-51.0) % MCV (80.0-94.0) fL MCH (27.0-31.0) pg MCHC (33.0-37.0) g/dL RDW (11.5-14.5) % Plt Count (130-400) K/uL MPV (7.2-11.7) fL Neut % (Auto) (50.0-75.0) % Lymph % (Auto) (20.0-40.0) % [place] % (Auto) (0.0-10.0) % Eos % (Auto) (0.0-4.0) % Baso % (Auto) (0.0-2.0) % Neut # (Auto) (1.8-7.0) K/uL Lymph # (Auto) (1.0-4.3) K/uL [place] # (Auto) (0.0-0.8) K/uL Eos # (Auto) (0.0-0.7) K/uL Baso # (Auto) (0.0-0.2) K/uL PT 19.7 H D (9.7-12.2) SECONDS INR 1.8 D APTT (21-34) SECONDS Sodium 142 (132-148) mmol/L Potassium 4.3 (3.6-5.2) mmol/L Chloride 108 H (98-107) mmol/L Carbon Dioxide 27 (22-30) mmol/L Anion Gap 12 (10-20) BUN 56 H (9-20) mg/dL Creatinine 2.1 H (0.8-1.5) mg/dL Est GFR ( Amer) 37 Est GFR (Non-Af Amer) 31 POC Glucose (mg/dL) 170 H (65-110) mg/dL Random Glucose 168 H D (75-110) mg/dL Lactic Acid (0.7-2.1) mmol/L Calcium 8.0 L (8.6-10.4) mg/dl Phosphorus 2.8 (2.5-4.5) mg/dL Magnesium 1.8 (1.6-2.3) mg/dL Total Bilirubin 1.4 H (0.2-1.3) mg/dL AST 17 (17-59) U/L ALT 23 (21-72) U/L Alkaline Phosphatase 76 (38-126) U/L Troponin I (0.00-0.120) ng/mL NT-Pro-B Natriuret Pep (0-900) pg/mL Total Protein 5.4 L (6.3-8.3) g/dL Albumin 2.6 L (3.5-5.0) g/dL Globulin 2.8 (2.2-3.9) gm/dL Albumin/Globulin Ratio 0.9 L (1.0-2.1) Lipase (23-300) U/L Urine Color (YELLOW) Urine Clarity (Clear) Urine pH (5.0-8.0) Ur Specific [place] (1.003-1.030) Urine Protein (NEGATIVE) mg/dL Urine Glucose (UA) (Normal) mg/dL Urine Ketones (NEGATIVE) mg/dL Urine Blood (NEGATIVE) Urine Nitrate (NEGATIVE) Urine Bilirubin (NEGATIVE) Urine Urobilinogen (0.2-1.0) mg/dL Ur Leukocyte Esterase (Negative) Shayy/uL Urine WBC (Auto) (0-5) /hpf Urine RBC (Auto) (0-3) /hpf Urine WBC Clumps (Auto) (NONE) /hpf Urine Bacteria (<OCC) Urine Yeast (Budding) (NEGATIVE) /hpf Stool Occult Blood (NEGATIVE) Urine Opiates Screen (NEGATIVE) Urine Methadone Screen (NEGATIVE) Ur Barbiturates Screen (NEGATIVE) Ur Phencyclidine Scrn (NEGATIVE) Ur Amphetamines Screen (NEGATIVE) U Benzodiazepines Scrn (NEGATIVE) U Oth Cocaine Metabols (NEGATIVE) U Cannabinoids Screen (NEGATIVE) Blood Type Antibody Screen 02/22/18 02/22/18 02/22/18 Range/Units 06:26 06:26 03:21 WBC 5.4 (4.8-10.8) K/uL RBC 2.07 L (4.40-5.90) Mil/uL Hgb 6.4 L* (12.0-18.0) g/dL Hct 19.0 L (35.0-51.0) % MCV 91.5 D (80.0-94.0) fL MCH 31.0 (27.0-31.0) pg MCHC 33.8 (33.0-37.0) g/dL RDW 18.7 H (11.5-14.5) % Plt Count 129 L (130-400) K/uL MPV 9.3 (7.2-11.7) fL Neut % (Auto) 60.4 (50.0-75.0) % Lymph % (Auto) 27.2 (20.0-40.0) % [place] % (Auto) 8.1 (0.0-10.0) % Eos % (Auto) 3.0 (0.0-4.0) % Baso % (Auto) 1.3 (0.0-2.0) % Neut # (Auto) 3.3 (1.8-7.0) K/uL Lymph # (Auto) 1.5 (1.0-4.3) K/uL [place] # (Auto) 0.4 (0.0-0.8) K/uL Eos # (Auto) 0.2 (0.0-0.7) K/uL Baso # (Auto) 0.1 (0.0-0.2) K/uL PT (9.7-12.2) SECONDS INR APTT (21-34) SECONDS Sodium (132-148) mmol/L Potassium (3.6-5.2) mmol/L Chloride (98-107) mmol/L Carbon Dioxide (22-30) mmol/L Anion Gap (10-20) BUN (9-20) mg/dL Creatinine (0.8-1.5) mg/dL Est GFR ( Amer) Est GFR (Non-Af Amer) POC Glucose (mg/dL) (65-110) mg/dL Random Glucose (75-110) mg/dL Lactic Acid 1.4 (0.7-2.1) mmol/L Calcium (8.6-10.4) mg/dl Phosphorus (2.5-4.5) mg/dL Magnesium 1.9 (1.6-2.3) mg/dL Total Bilirubin (0.2-1.3) mg/dL AST (17-59) U/L ALT (21-72) U/L Alkaline Phosphatase (38-126) U/L Troponin I (0.00-0.120) ng/mL NT-Pro-B Natriuret Pep (0-900) pg/mL Total Protein (6.3-8.3) g/dL Albumin (3.5-5.0) g/dL Globulin (2.2-3.9) gm/dL Albumin/Globulin Ratio (1.0-2.1) Lipase (23-300) U/L Urine Color (YELLOW) Urine Clarity (Clear) Urine pH (5.0-8.0) Ur Specific [place] (1.003-1.030) Urine Protein (NEGATIVE) mg/dL Urine Glucose (UA) (Normal) mg/dL Urine Ketones (NEGATIVE) mg/dL Urine Blood (NEGATIVE) Urine Nitrate (NEGATIVE) Urine Bilirubin (NEGATIVE) Urine Urobilinogen (0.2-1.0) mg/dL Ur Leukocyte Esterase (Negative) Shayy/uL Urine WBC (Auto) (0-5) /hpf Urine RBC (Auto) (0-3) /hpf Urine WBC Clumps (Auto) (NONE) /hpf Urine Bacteria (<OCC) Urine Yeast (Budding) (NEGATIVE) /hpf Stool Occult Blood (NEGATIVE) Urine Opiates Screen (NEGATIVE) Urine Methadone Screen (NEGATIVE) Ur Barbiturates Screen (NEGATIVE) Ur Phencyclidine Scrn (NEGATIVE) Ur Amphetamines Screen (NEGATIVE) U Benzodiazepines Scrn (NEGATIVE) U Oth Cocaine Metabols (NEGATIVE) U Cannabinoids Screen (NEGATIVE) Blood Type Antibody Screen 02/22/18 02/21/18 02/21/18 Range/Units 02:27 23:59 21:45 WBC (4.8-10.8) K/uL RBC (4.40-5.90) Mil/uL Hgb (12.0-18.0) g/dL Hct (35.0-51.0) % MCV (80.0-94.0) fL MCH (27.0-31.0) pg MCHC (33.0-37.0) g/dL RDW (11.5-14.5) % Plt Count (130-400) K/uL MPV (7.2-11.7) fL Neut % (Auto) (50.0-75.0) % Lymph % (Auto) (20.0-40.0) % [place] % (Auto) (0.0-10.0) % Eos % (Auto) (0.0-4.0) % Baso % (Auto) (0.0-2.0) % Neut # (Auto) (1.8-7.0) K/uL Lymph # (Auto) (1.0-4.3) K/uL [place] # (Auto) (0.0-0.8) K/uL Eos # (Auto) (0.0-0.7) K/uL Baso # (Auto) (0.0-0.2) K/uL PT (9.7-12.2) SECONDS INR APTT (21-34) SECONDS Sodium (132-148) mmol/L Potassium (3.6-5.2) mmol/L Chloride (98-107) mmol/L Carbon Dioxide (22-30) mmol/L Anion Gap (10-20) BUN (9-20) mg/dL Creatinine (0.8-1.5) mg/dL Est GFR ( Amer) Est GFR (Non-Af Amer) POC Glucose (mg/dL) 185 H 191 H (65-110) mg/dL Random Glucose (75-110) mg/dL Lactic Acid (0.7-2.1) mmol/L Calcium (8.6-10.4) mg/dl Phosphorus (2.5-4.5) mg/dL Magnesium (1.6-2.3) mg/dL Total Bilirubin (0.2-1.3) mg/dL AST (17-59) U/L ALT (21-72) U/L Alkaline Phosphatase (38-126) U/L Troponin I (0.00-0.120) ng/mL NT-Pro-B Natriuret Pep (0-900) pg/mL Total Protein (6.3-8.3) g/dL Albumin (3.5-5.0) g/dL Globulin (2.2-3.9) gm/dL Albumin/Globulin Ratio (1.0-2.1) Lipase (23-300) U/L Urine Color Yellow (YELLOW) Urine Clarity Turbid (Clear) Urine pH 5.0 (5.0-8.0) Ur Specific [place] 1.011 (1.003-1.030) Urine Protein 2+ H (NEGATIVE) mg/dL Urine Glucose (UA) Normal (Normal) mg/dL Urine Ketones Negative (NEGATIVE) mg/dL Urine Blood 1+ H (NEGATIVE) Urine Nitrate Negative (NEGATIVE) Urine Bilirubin Negative (NEGATIVE) Urine Urobilinogen 2.0 (0.2-1.0) mg/dL Ur Leukocyte Esterase 3+ H (Negative) Shayy/uL Urine WBC (Auto) 2698 H (0-5) /hpf Urine RBC (Auto) 35 H (0-3) /hpf Urine WBC Clumps (Auto) Many H (NONE) /hpf Urine Bacteria Few H (<OCC) Urine Yeast (Budding) Few H (NEGATIVE) /hpf Stool Occult Blood (NEGATIVE) Urine Opiates Screen (NEGATIVE) Urine Methadone Screen (NEGATIVE) Ur Barbiturates Screen (NEGATIVE) Ur Phencyclidine Scrn (NEGATIVE) Ur Amphetamines Screen (NEGATIVE) U Benzodiazepines Scrn (NEGATIVE) U Oth Cocaine Metabols (NEGATIVE) U Cannabinoids Screen (NEGATIVE) Blood Type Antibody Screen 02/21/18 02/21/18 02/21/18 Range/Units 21:45 21:15 20:42 WBC 4.7 L (4.8-10.8) K/uL RBC 1.80 L (4.40-5.90) Mil/uL Hgb 5.5 L* (12.0-18.0) g/dL Hct 17.3 L (35.0-51.0) % MCV 96.1 H (80.0-94.0) fL MCH 30.7 (27.0-31.0) pg MCHC 31.9 L (33.0-37.0) g/dL RDW 18.6 H (11.5-14.5) % Plt Count 129 L (130-400) K/uL MPV 9.7 (7.2-11.7) fL Neut % (Auto) 66.2 (50.0-75.0) % Lymph % (Auto) 19.9 L (20.0-40.0) % [place] % (Auto) 9.7 (0.0-10.0) % Eos % (Auto) 3.1 (0.0-4.0) % Baso % (Auto) 1.1 (0.0-2.0) % Neut # (Auto) 3.1 (1.8-7.0) K/uL Lymph # (Auto) 0.9 L (1.0-4.3) K/uL [place] # (Auto) 0.5 (0.0-0.8) K/uL Eos # (Auto) 0.1 (0.0-0.7) K/uL Baso # (Auto) 0.1 (0.0-0.2) K/uL PT (9.7-12.2) SECONDS INR APTT (21-34) SECONDS Sodium (132-148) mmol/L Potassium (3.6-5.2) mmol/L Chloride (98-107) mmol/L Carbon Dioxide (22-30) mmol/L Anion Gap (10-20) BUN (9-20) mg/dL Creatinine (0.8-1.5) mg/dL Est GFR ( Amer) Est GFR (Non-Af Amer) POC Glucose (mg/dL) (65-110) mg/dL Random Glucose (75-110) mg/dL Lactic Acid 1.7 (0.7-2.1) mmol/L Calcium (8.6-10.4) mg/dl Phosphorus (2.5-4.5) mg/dL Magnesium (1.6-2.3) mg/dL Total Bilirubin (0.2-1.3) mg/dL AST (17-59) U/L ALT (21-72) U/L Alkaline Phosphatase (38-126) U/L Troponin I (0.00-0.120) ng/mL NT-Pro-B Natriuret Pep (0-900) pg/mL Total Protein (6.3-8.3) g/dL Albumin (3.5-5.0) g/dL Globulin (2.2-3.9) gm/dL Albumin/Globulin Ratio (1.0-2.1) Lipase (23-300) U/L Urine Color (YELLOW) Urine Clarity (Clear) Urine pH (5.0-8.0) Ur Specific [place] (1.003-1.030) Urine Protein (NEGATIVE) mg/dL Urine Glucose (UA) (Normal) mg/dL Urine Ketones (NEGATIVE) mg/dL Urine Blood (NEGATIVE) Urine Nitrate (NEGATIVE) Urine Bilirubin (NEGATIVE) Urine Urobilinogen (0.2-1.0) mg/dL Ur Leukocyte Esterase (Negative) Shayy/uL Urine WBC (Auto) (0-5) /hpf Urine RBC (Auto) (0-3) /hpf Urine WBC Clumps (Auto) (NONE) /hpf Urine Bacteria (<OCC) Urine Yeast (Budding) (NEGATIVE) /hpf Stool Occult Blood (NEGATIVE) Urine Opiates Screen Negative (NEGATIVE) Urine Methadone Screen Negative (NEGATIVE) Ur Barbiturates Screen Negative (NEGATIVE) Ur Phencyclidine Scrn Negative (NEGATIVE) Ur Amphetamines Screen Negative (NEGATIVE) U Benzodiazepines Scrn Negative (NEGATIVE) U Oth Cocaine Metabols Negative (NEGATIVE) U Cannabinoids Screen Negative (NEGATIVE) Blood Type Antibody Screen 02/21/18 02/21/18 02/21/18 Range/Units 19:55 18:26 17:50 WBC (4.8-10.8) K/uL RBC (4.40-5.90) Mil/uL Hgb (12.0-18.0) g/dL Hct (35.0-51.0) % MCV (80.0-94.0) fL MCH (27.0-31.0) pg MCHC (33.0-37.0) g/dL RDW (11.5-14.5) % Plt Count (130-400) K/uL MPV (7.2-11.7) fL Neut % (Auto) (50.0-75.0) % Lymph % (Auto) (20.0-40.0) % [place] % (Auto) (0.0-10.0) % Eos % (Auto) (0.0-4.0) % Baso % (Auto) (0.0-2.0) % Neut # (Auto) (1.8-7.0) K/uL Lymph # (Auto) (1.0-4.3) K/uL [place] # (Auto) (0.0-0.8) K/uL Eos # (Auto) (0.0-0.7) K/uL Baso # (Auto) (0.0-0.2) K/uL PT 39.3 H (9.7-12.2) SECONDS INR 3.6 H* APTT 31 (21-34) SECONDS Sodium (132-148) mmol/L Potassium (3.6-5.2) mmol/L Chloride (98-107) mmol/L Carbon Dioxide (22-30) mmol/L Anion Gap (10-20) BUN (9-20) mg/dL Creatinine (0.8-1.5) mg/dL Est GFR ( Amer) Est GFR (Non-Af Amer) POC Glucose (mg/dL) (65-110) mg/dL Random Glucose (75-110) mg/dL Lactic Acid (0.7-2.1) mmol/L Calcium (8.6-10.4) mg/dl Phosphorus (2.5-4.5) mg/dL Magnesium (1.6-2.3) mg/dL Total Bilirubin (0.2-1.3) mg/dL AST (17-59) U/L ALT (21-72) U/L Alkaline Phosphatase (38-126) U/L Troponin I 0.0790 (0.00-0.120) ng/mL NT-Pro-B Natriuret Pep 16196 H (0-900) pg/mL Total Protein (6.3-8.3) g/dL Albumin (3.5-5.0) g/dL Globulin (2.2-3.9) gm/dL Albumin/Globulin Ratio (1.0-2.1) Lipase (23-300) U/L Urine Color (YELLOW) Urine Clarity (Clear) Urine pH (5.0-8.0) Ur Specific [place] (1.003-1.030) Urine Protein (NEGATIVE) mg/dL Urine Glucose (UA) (Normal) mg/dL Urine Ketones (NEGATIVE) mg/dL Urine Blood (NEGATIVE) Urine Nitrate (NEGATIVE) Urine Bilirubin (NEGATIVE) Urine Urobilinogen (0.2-1.0) mg/dL Ur Leukocyte Esterase (Negative) Shayy/uL Urine WBC (Auto) (0-5) /hpf Urine RBC (Auto) (0-3) /hpf Urine WBC Clumps (Auto) (NONE) /hpf Urine Bacteria (<OCC) Urine Yeast (Budding) (NEGATIVE) /hpf Stool Occult Blood Positive H (NEGATIVE) Urine Opiates Screen (NEGATIVE) Urine Methadone Screen (NEGATIVE) Ur Barbiturates Screen (NEGATIVE) Ur Phencyclidine Scrn (NEGATIVE) Ur Amphetamines Screen (NEGATIVE) U Benzodiazepines Scrn (NEGATIVE) U Oth Cocaine Metabols (NEGATIVE) U Cannabinoids Screen (NEGATIVE) Blood Type Antibody Screen 02/21/18 02/21/18 02/21/18 Range/Units 17:46 17:40 17:40 WBC (4.8-10.8) K/uL RBC (4.40-5.90) Mil/uL Hgb (12.0-18.0) g/dL Hct (35.0-51.0) % MCV (80.0-94.0) fL MCH (27.0-31.0) pg MCHC (33.0-37.0) g/dL RDW (11.5-14.5) % Plt Count (130-400) K/uL MPV (7.2-11.7) fL Neut % (Auto) (50.0-75.0) % Lymph % (Auto) (20.0-40.0) % [place] % (Auto) (0.0-10.0) % Eos % (Auto) (0.0-4.0) % Baso % (Auto) (0.0-2.0) % Neut # (Auto) (1.8-7.0) K/uL Lymph # (Auto) (1.0-4.3) K/uL [place] # (Auto) (0.0-0.8) K/uL Eos # (Auto) (0.0-0.7) K/uL Baso # (Auto) (0.0-0.2) K/uL PT (9.7-12.2) SECONDS INR APTT (21-34) SECONDS Sodium 140 (132-148) mmol/L Potassium 4.3 (3.6-5.2) mmol/L Chloride 105 (98-107) mmol/L Carbon Dioxide 27 (22-30) mmol/L Anion Gap 13 (10-20) BUN 58 H (9-20) mg/dL Creatinine 2.1 H (0.8-1.5) mg/dL Est GFR ( Amer) 37 Est GFR (Non-Af Amer) 31 POC Glucose (mg/dL) (65-110) mg/dL Random Glucose 227 H D (75-110) mg/dL Lactic Acid (0.7-2.1) mmol/L Calcium 8.4 L (8.6-10.4) mg/dl Phosphorus (2.5-4.5) mg/dL Magnesium (1.6-2.3) mg/dL Total Bilirubin 0.7 (0.2-1.3) mg/dL AST 17 (17-59) U/L ALT 17 L (21-72) U/L Alkaline Phosphatase 82 (38-126) U/L Troponin I 0.0820 (0.00-0.120) ng/mL NT-Pro-B Natriuret Pep (0-900) pg/mL Total Protein 5.6 L (6.3-8.3) g/dL Albumin 2.7 L (3.5-5.0) g/dL Globulin 2.9 (2.2-3.9) gm/dL Albumin/Globulin Ratio 0.9 L (1.0-2.1) Lipase 13 L (23-300) U/L Urine Color Yellow (YELLOW) Urine Clarity Hazy (Clear) Urine pH 5.0 (5.0-8.0) Ur Specific [place] 1.011 (1.003-1.030) Urine Protein 2+ H (NEGATIVE) mg/dL Urine Glucose (UA) Normal (Normal) mg/dL Urine Ketones Negative (NEGATIVE) mg/dL Urine Blood 3+ H (NEGATIVE) Urine Nitrate Negative (NEGATIVE) Urine Bilirubin Negative (NEGATIVE) Urine Urobilinogen 2.0 (0.2-1.0) mg/dL Ur Leukocyte Esterase 3+ H (Negative) Shayy/uL Urine WBC (Auto) 934 H (0-5) /hpf Urine RBC (Auto) 95 H (0-3) /hpf Urine WBC Clumps (Auto) Few H (NONE) /hpf Urine Bacteria Many H (<OCC) Urine Yeast (Budding) Few H (NEGATIVE) /hpf Stool Occult Blood (NEGATIVE) Urine Opiates Screen (NEGATIVE) Urine Methadone Screen (NEGATIVE) Ur Barbiturates Screen (NEGATIVE) Ur Phencyclidine Scrn (NEGATIVE) Ur Amphetamines Screen (NEGATIVE) U Benzodiazepines Scrn (NEGATIVE) U Oth Cocaine Metabols (NEGATIVE) U Cannabinoids Screen (NEGATIVE) Blood Type A POSITIVE Antibody Screen Negative 02/21/18 02/21/18 Range/Units 17:40 17:18 WBC 4.2 L (4.8-10.8) K/uL RBC 1.84 L (4.40-5.90) Mil/uL Hgb 5.7 L* D (12.0-18.0) g/dL Hct 17.7 L (35.0-51.0) % MCV 95.8 H (80.0-94.0) fL MCH 31.0 (27.0-31.0) pg MCHC 32.4 L (33.0-37.0) g/dL RDW 18.9 H (11.5-14.5) % Plt Count 126 L D (130-400) K/uL MPV 9.6 (7.2-11.7) fL Neut % (Auto) 60.6 (50.0-75.0) % Lymph % (Auto) 26.2 (20.0-40.0) % [place] % (Auto) 9.3 (0.0-10.0) % Eos % (Auto) 2.6 (0.0-4.0) % Baso % (Auto) 1.3 (0.0-2.0) % Neut # (Auto) 2.5 (1.8-7.0) K/uL Lymph # (Auto) 1.1 (1.0-4.3) K/uL [place] # (Auto) 0.4 (0.0-0.8) K/uL Eos # (Auto) 0.1 (0.0-0.7) K/uL Baso # (Auto) 0.1 (0.0-0.2) K/uL PT (9.7-12.2) SECONDS INR APTT (21-34) SECONDS Sodium (132-148) mmol/L Potassium (3.6-5.2) mmol/L Chloride (98-107) mmol/L Carbon Dioxide (22-30) mmol/L Anion Gap (10-20) BUN (9-20) mg/dL Creatinine (0.8-1.5) mg/dL Est GFR ( Amer) Est GFR (Non-Af Amer) POC Glucose (mg/dL) 236 H (65-110) mg/dL Random Glucose (75-110) mg/dL Lactic Acid (0.7-2.1) mmol/L Calcium (8.6-10.4) mg/dl Phosphorus (2.5-4.5) mg/dL Magnesium (1.6-2.3) mg/dL Total Bilirubin (0.2-1.3) mg/dL AST (17-59) U/L ALT (21-72) U/L Alkaline Phosphatase (38-126) U/L Troponin I (0.00-0.120) ng/mL NT-Pro-B Natriuret Pep (0-900) pg/mL Total Protein (6.3-8.3) g/dL Albumin (3.5-5.0) g/dL Globulin (2.2-3.9) gm/dL Albumin/Globulin Ratio (1.0-2.1) Lipase (23-300) U/L Urine Color (YELLOW) Urine Clarity (Clear) Urine pH (5.0-8.0) Ur Specific [place] (1.003-1.030) Urine Protein (NEGATIVE) mg/dL Urine Glucose (UA) (Normal) mg/dL Urine Ketones (NEGATIVE) mg/dL Urine Blood (NEGATIVE) Urine Nitrate (NEGATIVE) Urine Bilirubin (NEGATIVE) Urine Urobilinogen (0.2-1.0) mg/dL Ur Leukocyte Esterase (Negative) Shayy/uL Urine WBC (Auto) (0-5) /hpf Urine RBC (Auto) (0-3) /hpf Urine WBC Clumps (Auto) (NONE) /hpf Urine Bacteria (<OCC) Urine Yeast (Budding) (NEGATIVE) /hpf Stool Occult Blood (NEGATIVE) Urine Opiates Screen (NEGATIVE) Urine Methadone Screen (NEGATIVE) Ur Barbiturates Screen (NEGATIVE) Ur Phencyclidine Scrn (NEGATIVE) Ur Amphetamines Screen (NEGATIVE) U Benzodiazepines Scrn (NEGATIVE) U Oth Cocaine Metabols (NEGATIVE) U Cannabinoids Screen (NEGATIVE) Blood Type Antibody Screen Laboratory Results - last 24 hr 02/21/18 02/21/18 02/21/18 17:18 17:40 17:40 WBC 4.2 L RBC 1.84 L Hgb 5.7 L* D Hct 17.7 L MCV 95.8 H MCH 31.0 MCHC 32.4 L RDW 18.9 H Plt Count 126 L D MPV 9.6 Neut % (Auto) 60.6 Lymph % (Auto) 26.2 [place] % (Auto) 9.3 Eos % (Auto) 2.6 Baso % (Auto) 1.3 Neut # (Auto) 2.5 Lymph # (Auto) 1.1 [place] # (Auto) 0.4 Eos # (Auto) 0.1 Baso # (Auto) 0.1 PT INR APTT Sodium 140 Potassium 4.3 Chloride 105 Carbon Dioxide 27 Anion Gap 13 BUN 58 H Creatinine 2.1 H Est GFR ( Amer) 37 Est GFR (Non-Af Amer) 31 POC Glucose (mg/dL) 236 H Random Glucose 227 H D Lactic Acid Calcium 8.4 L Phosphorus Magnesium Total Bilirubin 0.7 AST 17 ALT 17 L Alkaline Phosphatase 82 Troponin I 0.0820 NT-Pro-B Natriuret Pep Total Protein 5.6 L Albumin 2.7 L Globulin 2.9 Albumin/Globulin Ratio 0.9 L Lipase 13 L Urine Color Urine Clarity Urine pH Ur Specific [place] Urine Protein Urine Glucose (UA) Urine Ketones Urine Blood Urine Nitrate Urine Bilirubin Urine Urobilinogen Ur Leukocyte Esterase Urine WBC (Auto) Urine RBC (Auto) Urine WBC Clumps (Auto) Urine Bacteria Urine Yeast (Budding) Stool Occult Blood Urine Opiates Screen Urine Methadone Screen Ur Barbiturates Screen Ur Phencyclidine Scrn Ur Amphetamines Screen U Benzodiazepines Scrn U Oth Cocaine Metabols U Cannabinoids Screen Blood Type Antibody Screen 02/21/18 02/21/18 02/21/18 17:40 17:46 17:50 WBC RBC Hgb Hct MCV MCH MCHC RDW Plt Count MPV Neut % (Auto) Lymph % (Auto) [place] % (Auto) Eos % (Auto) Baso % (Auto) Neut # (Auto) Lymph # (Auto) [place] # (Auto) Eos # (Auto) Baso # (Auto) PT 39.3 H INR 3.6 H* APTT 31 Sodium Potassium Chloride Carbon Dioxide Anion Gap BUN Creatinine Est GFR ( Amer) Est GFR (Non-Af Amer) POC Glucose (mg/dL) Random Glucose Lactic Acid Calcium Phosphorus Magnesium Total Bilirubin AST ALT Alkaline Phosphatase Troponin I NT-Pro-B Natriuret Pep Total Protein Albumin Globulin Albumin/Globulin Ratio Lipase Urine Color Yellow Urine Clarity Hazy Urine pH 5.0 Ur Specific [place] 1.011 Urine Protein 2+ H Urine Glucose (UA) Normal Urine Ketones Negative Urine Blood 3+ H Urine Nitrate Negative Urine Bilirubin Negative Urine Urobilinogen 2.0 Ur Leukocyte Esterase 3+ H Urine WBC (Auto) 934 H Urine RBC (Auto) 95 H Urine WBC Clumps (Auto) Few H Urine Bacteria Many H Urine Yeast (Budding) Few H Stool Occult Blood Urine Opiates Screen Urine Methadone Screen Ur Barbiturates Screen Ur Phencyclidine Scrn Ur Amphetamines Screen U Benzodiazepines Scrn U Oth Cocaine Metabols U Cannabinoids Screen Blood Type A POSITIVE Antibody Screen Negative 02/21/18 02/21/18 02/21/18 18:26 19:55 20:42 WBC 4.7 L RBC 1.80 L Hgb 5.5 L* Hct 17.3 L MCV 96.1 H MCH 30.7 MCHC 31.9 L RDW 18.6 H Plt Count 129 L MPV 9.7 Neut % (Auto) 66.2 Lymph % (Auto) 19.9 L [place] % (Auto) 9.7 Eos % (Auto) 3.1 Baso % (Auto) 1.1 Neut # (Auto) 3.1 Lymph # (Auto) 0.9 L [place] # (Auto) 0.5 Eos # (Auto) 0.1 Baso # (Auto) 0.1 PT INR APTT Sodium Potassium Chloride Carbon Dioxide Anion Gap BUN Creatinine Est GFR ( Amer) Est GFR (Non-Af Amer) POC Glucose (mg/dL) Random Glucose Lactic Acid Calcium Phosphorus Magnesium Total Bilirubin AST ALT Alkaline Phosphatase Troponin I 0.0790 NT-Pro-B Natriuret Pep 89215 H Total Protein Albumin Globulin Albumin/Globulin Ratio Lipase Urine Color Urine Clarity Urine pH Ur Specific [place] Urine Protein Urine Glucose (UA) Urine Ketones Urine Blood Urine Nitrate Urine Bilirubin Urine Urobilinogen Ur Leukocyte Esterase Urine WBC (Auto) Urine RBC (Auto) Urine WBC Clumps (Auto) Urine Bacteria Urine Yeast (Budding) Stool Occult Blood Positive H Urine Opiates Screen Urine Methadone Screen Ur Barbiturates Screen Ur Phencyclidine Scrn Ur Amphetamines Screen U Benzodiazepines Scrn U Oth Cocaine Metabols U Cannabinoids Screen Blood Type Antibody Screen 02/21/18 02/21/18 02/21/18 21:15 21:45 21:45 WBC RBC Hgb Hct MCV MCH MCHC RDW Plt Count MPV Neut % (Auto) Lymph % (Auto) [place] % (Auto) Eos % (Auto) Baso % (Auto) Neut # (Auto) Lymph # (Auto) [place] # (Auto) Eos # (Auto) Baso # (Auto) PT INR APTT Sodium Potassium Chloride Carbon Dioxide Anion Gap BUN Creatinine Est GFR ( Amer) Est GFR (Non-Af Amer) POC Glucose (mg/dL) Random Glucose Lactic Acid 1.7 Calcium Phosphorus Magnesium Total Bilirubin AST ALT Alkaline Phosphatase Troponin I NT-Pro-B Natriuret Pep Total Protein Albumin Globulin Albumin/Globulin Ratio Lipase Urine Color Yellow Urine Clarity Turbid Urine pH 5.0 Ur Specific [place] 1.011 Urine Protein 2+ H Urine Glucose (UA) Normal Urine Ketones Negative Urine Blood 1+ H Urine Nitrate Negative Urine Bilirubin Negative Urine Urobilinogen 2.0 Ur Leukocyte Esterase 3+ H Urine WBC (Auto) 2698 H Urine RBC (Auto) 35 H Urine WBC Clumps (Auto) Many H Urine Bacteria Few H Urine Yeast (Budding) Few H Stool Occult Blood Urine Opiates Screen Negative Urine Methadone Screen Negative Ur Barbiturates Screen Negative Ur Phencyclidine Scrn Negative Ur Amphetamines Screen Negative U Benzodiazepines Scrn Negative U Oth Cocaine Metabols Negative U Cannabinoids Screen Negative Blood Type Antibody Screen 02/21/18 02/22/18 02/22/18 23:59 02:27 03:21 WBC RBC Hgb Hct MCV MCH MCHC RDW Plt Count MPV Neut % (Auto) Lymph % (Auto) [place] % (Auto) Eos % (Auto) Baso % (Auto) Neut # (Auto) Lymph # (Auto) [place] # (Auto) Eos # (Auto) Baso # (Auto) PT INR APTT Sodium Potassium Chloride Carbon Dioxide Anion Gap BUN Creatinine Est GFR ( Amer) Est GFR (Non-Af Amer) POC Glucose (mg/dL) 191 H 185 H Random Glucose Lactic Acid Calcium Phosphorus Magnesium 1.9 Total Bilirubin AST ALT Alkaline Phosphatase Troponin I NT-Pro-B Natriuret Pep Total Protein Albumin Globulin Albumin/Globulin Ratio Lipase Urine Color Urine Clarity Urine pH Ur Specific [place] Urine Protein Urine Glucose (UA) Urine Ketones Urine Blood Urine Nitrate Urine Bilirubin Urine Urobilinogen Ur Leukocyte Esterase Urine WBC (Auto) Urine RBC (Auto) Urine WBC Clumps (Auto) Urine Bacteria Urine Yeast (Budding) Stool Occult Blood Urine Opiates Screen Urine Methadone Screen Ur Barbiturates Screen Ur Phencyclidine Scrn Ur Amphetamines Screen U Benzodiazepines Scrn U Oth Cocaine Metabols U Cannabinoids Screen Blood Type Antibody Screen 02/22/18 02/22/18 02/22/18 06:26 06:26 06:26 WBC 5.4 RBC 2.07 L Hgb 6.4 L* Hct 19.0 L MCV 91.5 D MCH 31.0 MCHC 33.8 RDW 18.7 H Plt Count 129 L MPV 9.3 Neut % (Auto) 60.4 Lymph % (Auto) 27.2 [place] % (Auto) 8.1 Eos % (Auto) 3.0 Baso % (Auto) 1.3 Neut # (Auto) 3.3 Lymph # (Auto) 1.5 [place] # (Auto) 0.4 Eos # (Auto) 0.2 Baso # (Auto) 0.1 PT INR APTT Sodium 142 Potassium 4.3 Chloride 108 H Carbon Dioxide 27 Anion Gap 12 BUN 56 H Creatinine 2.1 H Est GFR ( Amer) 37 Est GFR (Non-Af Amer) 31 POC Glucose (mg/dL) Random Glucose 168 H D Lactic Acid 1.4 Calcium 8.0 L Phosphorus 2.8 Magnesium 1.8 Total Bilirubin 1.4 H AST 17 ALT 23 Alkaline Phosphatase 76 Troponin I NT-Pro-B Natriuret Pep Total Protein 5.4 L Albumin 2.6 L Globulin 2.8 Albumin/Globulin Ratio 0.9 L Lipase Urine Color Urine Clarity Urine pH Ur Specific [place] Urine Protein Urine Glucose (UA) Urine Ketones Urine Blood Urine Nitrate Urine Bilirubin Urine Urobilinogen Ur Leukocyte Esterase Urine WBC (Auto) Urine RBC (Auto) Urine WBC Clumps (Auto) Urine Bacteria Urine Yeast (Budding) Stool Occult Blood Urine Opiates Screen Urine Methadone Screen Ur Barbiturates Screen Ur Phencyclidine Scrn Ur Amphetamines Screen U Benzodiazepines Scrn U Oth Cocaine Metabols U Cannabinoids Screen Blood Type Antibody Screen 02/22/18 02/22/18 06:26 11:58 WBC RBC Hgb Hct MCV MCH MCHC RDW Plt Count MPV Neut % (Auto) Lymph % (Auto) [place] % (Auto) Eos % (Auto) Baso % (Auto) Neut # (Auto) Lymph # (Auto) [place] # (Auto) Eos # (Auto) Baso # (Auto) PT 19.7 H D INR 1.8 D APTT Sodium Potassium Chloride Carbon Dioxide Anion Gap BUN Creatinine Est GFR ( Amer) Est GFR (Non-Af Amer) POC Glucose (mg/dL) 170 H Random Glucose Lactic Acid Calcium Phosphorus Magnesium Total Bilirubin AST ALT Alkaline Phosphatase Troponin I NT-Pro-B Natriuret Pep Total Protein Albumin Globulin Albumin/Globulin Ratio Lipase Urine Color Urine Clarity Urine pH Ur Specific [place] Urine Protein Urine Glucose (UA) Urine Ketones Urine Blood Urine Nitrate Urine Bilirubin Urine Urobilinogen Ur Leukocyte Esterase Urine WBC (Auto) Urine RBC (Auto) Urine WBC Clumps (Auto) Urine Bacteria Urine Yeast (Budding) Stool Occult Blood Urine Opiates Screen Urine Methadone Screen Ur Barbiturates Screen Ur Phencyclidine Scrn Ur Amphetamines Screen U Benzodiazepines Scrn U Oth Cocaine Metabols U Cannabinoids Screen Blood Type Antibody Screen Radiology Impressions: Radiology Impressions Abdomen/Pelvis CT 02/21/18 17:18 IMPRESSION: Left ureteral stent present. Proximal limb of the stent is in the medial aspect of the left kidney. Poorly defined left kidney which is likely severely hydronephrotic and cystic.Paulson catheter tip in the prostate gland not in the urinary bladder. Small bilateral pleural effusions and subsegmental atelectasis. Chest X-Ray 02/21/18 17:18 IMPRESSION: Bibasilar atelectasis. Small left pleural effusion. Mild to moderate pulmonary venous congestion. Hypoinflation. Cardiomegaly. EKG/Cardiology Studies: Cardiology / EKG Studies 02/21/18 17:03 ELECTROCARDIOGRAM Stat Comment: Mode Of Transportation: BED Reason For Exam: GI Bleeding 02/21/18 17:18 ELECTROCARDIOGRAM Stat Comment: Mode Of Transportation: BED Reason For Exam: GI Bleeding 02/21/18 19:07 EKG [ELECTROCARDIOGRAM] Stat Comment: Mode Of Transportation: Reason For Exam: eval with severe anemia 02/21/18 20:12 EKG [ELECTROCARDIOGRAM] Stat Comment: Mode Of Transportation: Reason For Exam: eval with severe anemia Attending/Attestation - Attestation I have personally seen and examined this patient.: Yes I have fully participated in the care of the patient.: Yes I have reviewed all pertinent clinical information: Yes Notes (Text): 02/22/18 17:01 patient seen and examined Status post EGD with no active bleeding noted Status post transfusion of packed RBCs For bleeding scan Continue Protonix Follow-up CBC monitor INR
--- NOTE | 2018-02-22 10:11 | CP.PCM.CON ---
<Christopher Man - Last Filed: 02/22/18 10:16> History of Present Illness - History of Present Illness History of Present Illness: PGY-4 GI Fellow Consult Note The following obtained from chart review and hospital staff due to patient's dementia and clinical condition Pt is a 77 yo WM with dementia (non-communicative), CAD s/p stenting (unknown when), Afib (on warfarin), HTN, HLD, DM, CHF, Hypothyroid sent in from [facility] for bright red blood per rectum. In the ED, he was tachycardia, Hgb in 5s from previously 9s, elevated BUN CT without explaination for bleeding nor signs of liver cirrhosis, and maroon stools noted after admission to ICU. GI called for further evaluation. Unable to obtain ROS due to clinical condition MHx and SurgHx: See above Meds: Reviewed in chart FamHx: Unobtainable SocHx: Neg x3 All: NKDA Past Patient History - Infectious Disease Hx of Infectious Diseases: None - Tetanus Immunizations Tetanus Immunization: Unknown - Past Medical History & Family History Past Medical History?: Yes - Past Social History Smoking Status: Never Smoked - CARDIAC Hx Atrial Fibrillation: Yes Hx Congestive Heart Failure: Yes Hx Hypercholesterolemia: Yes Hx Hypertension: Yes - PULMONARY Hx Chronic Obstructive Pulmonary Disease (COPD): No - NEUROLOGICAL Hx Neurological Disorder: No - HEENT Hx HEENT Problems: No - RENAL Hx Chronic Kidney Disease: No - ENDOCRINE/METABOLIC Hx Hypothyroidism: No - HEMATOLOGICAL/ONCOLOGICAL Hx Anemia: Yes Hx Human Immunodeficiency Virus (HIV): No - INTEGUMENTARY Hx Dermatological Problems: No - MUSCULOSKELETAL/RHEUMATOLOGICAL Hx Arthritis: No Hx Falls: Yes Hx Rheumatoid Arthritis: No - GASTROINTESTINAL Hx Gastrointestinal Disorders: No - GENITOURINARY/GYNECOLOGICAL Hx Genitourinary Disorders: No - PSYCHIATRIC Hx Substance Use: No - SURGICAL HISTORY Hx Coronary Stent: Yes - ANESTHESIA Hx Anesthesia: Yes Hx Anesthesia Reactions: No Hx Malignant Hyperthermia: No Meds Allergies/Adverse Reactions: Allergies Allergy/AdvReac Type Severity Reaction Status Date / Time No Known Allergies Allergy Verified 02/21/18 17:15 - Medications Medications: Current Medications Pantoprazole Sodium 80 mg/ (Sodium Chloride) 100 mls @ 10 mls/hr IVP .Q10H [facility] Last Admin: 02/22/18 05:15 Dose: Not Given Piperacillin Sod/Tazobactam Sod (Zosyn 2.25 Gm Iv Premix) 2.25 gm in 50 mls @ 100 mls/hr IVPB Q8H [facility]; Protocol Stop: 02/26/18 20:46 Last Admin: 02/22/18 04:25 Dose: 100 mls/hr Insulin Aspart (Novolog) 0 unit SC Q6H [facility]; Protocol Physical Exam - Constitutional Appears: In Acute Distress, Chronically Ill - Head Exam Head Exam: ATRAUMATIC, NORMAL INSPECTION - Eye Exam Eye Exam: EOMI. absent: Scleral icterus - ENT Exam ENT Exam: Mucous Membranes Dry. absent: Mucous Membranes Moist - Respiratory Exam Respiratory Exam: Accessory Muscle Use, Respiratory Distress (mild) - Cardiovascular Exam Cardiovascular Exam: Tachycardia, REGULAR RHYTHM - GI/Abdominal Exam GI & Abdominal Exam: Normal Bowel Sounds, Soft, Tenderness (in upper halves). absent: Bruit, Diminished Bowel Sounds, Distended, Firm, Guarding, Hernia, Organomegaly, Pulsatile Mass, Rebound, Rigid - Rectal Exam Additional comments: dark maroon stool visualized, no obv masses palpated - Extremities Exam Extremities exam: Positive for: normal inspection. Negative for: pedal edema - Psychiatric Exam Psychiatric exam: Agitated Additional comments: confused - Skin Skin Exam: Dry, Pallor Results - Vital Signs Recent Vital Signs: Last Vital Signs Temp 98.3 F 02/22/18 09:24 Pulse 134 H 02/22/18 09:24 Resp 25 H 02/22/18 09:24 BP 116/73 02/22/18 09:24 Pulse Ox 100 02/22/18 07:00 - Labs Result Diagrams: 02/22/18 06:26 02/22/18 06:26 Labs: Laboratory Results - last 24 hr 02/21/18 02/21/18 02/21/18 17:40 17:40 17:40 WBC 4.2 L RBC 1.84 L Hgb 5.7 L* D Hct 17.7 L MCV 95.8 H MCH 31.0 MCHC 32.4 L RDW 18.9 H Plt Count 126 L D MPV 9.6 Neut % (Auto) 60.6 Lymph % (Auto) 26.2 Sampson % (Auto) 9.3 Eos % (Auto) 2.6 Baso % (Auto) 1.3 Neut # (Auto) 2.5 Lymph # (Auto) 1.1 Sampson # (Auto) 0.4 Eos # (Auto) 0.1 Baso # (Auto) 0.1 PT INR APTT Sodium 140 Potassium 4.3 Chloride 105 Carbon Dioxide 27 Anion Gap 13 BUN 58 H Creatinine 2.1 H Est GFR ( Amer) 37 Est GFR (Non-Af Amer) 31 Random Glucose 227 H D Lactic Acid Calcium 8.4 L Phosphorus Magnesium Total Bilirubin 0.7 AST 17 ALT 17 L Alkaline Phosphatase 82 Troponin I 0.0820 NT-Pro-B Natriuret Pep Total Protein 5.6 L Albumin 2.7 L Globulin 2.9 Albumin/Globulin Ratio 0.9 L Lipase 13 L Urine Color Urine Clarity Urine pH Ur Specific [place] Urine Protein Urine Glucose (UA) Urine Ketones Urine Blood Urine Nitrate Urine Bilirubin Urine Urobilinogen Ur Leukocyte Esterase Urine WBC (Auto) Urine RBC (Auto) Urine WBC Clumps (Auto) Urine Bacteria Urine Yeast (Budding) Stool Occult Blood Urine Opiates Screen Urine Methadone Screen Ur Barbiturates Screen Ur Phencyclidine Scrn Ur Amphetamines Screen U Benzodiazepines Scrn U Oth Cocaine Metabols U Cannabinoids Screen Blood Type A POSITIVE Antibody Screen Negative 02/21/18 02/21/18 02/21/18 17:46 17:50 18:26 WBC RBC Hgb Hct MCV MCH MCHC RDW Plt Count MPV Neut % (Auto) Lymph % (Auto) Sampson % (Auto) Eos % (Auto) Baso % (Auto) Neut # (Auto) Lymph # (Auto) Sampson # (Auto) Eos # (Auto) Baso # (Auto) PT 39.3 H INR 3.6 H* APTT 31 Sodium Potassium Chloride Carbon Dioxide Anion Gap BUN Creatinine Est GFR ( Amer) Est GFR (Non-Af Amer) Random Glucose Lactic Acid Calcium Phosphorus Magnesium Total Bilirubin AST ALT Alkaline Phosphatase Troponin I NT-Pro-B Natriuret Pep Total Protein Albumin Globulin Albumin/Globulin Ratio Lipase Urine Color Yellow Urine Clarity Hazy Urine pH 5.0 Ur Specific [place] 1.011 Urine Protein 2+ H Urine Glucose (UA) Normal Urine Ketones Negative Urine Blood 3+ H Urine Nitrate Negative Urine Bilirubin Negative Urine Urobilinogen 2.0 Ur Leukocyte Esterase 3+ H Urine WBC (Auto) 934 H Urine RBC (Auto) 95 H Urine WBC Clumps (Auto) Few H Urine Bacteria Many H Urine Yeast (Budding) Few H Stool Occult Blood Positive H Urine Opiates Screen Urine Methadone Screen Ur Barbiturates Screen Ur Phencyclidine Scrn Ur Amphetamines Screen U Benzodiazepines Scrn U Oth Cocaine Metabols U Cannabinoids Screen Blood Type Antibody Screen 02/21/18 02/21/18 02/21/18 19:55 20:42 21:15 WBC 4.7 L RBC 1.80 L Hgb 5.5 L* Hct 17.3 L MCV 96.1 H MCH 30.7 MCHC 31.9 L RDW 18.6 H Plt Count 129 L MPV 9.7 Neut % (Auto) 66.2 Lymph % (Auto) 19.9 L Sampson % (Auto) 9.7 Eos % (Auto) 3.1 Baso % (Auto) 1.1 Neut # (Auto) 3.1 Lymph # (Auto) 0.9 L Sampson # (Auto) 0.5 Eos # (Auto) 0.1 Baso # (Auto) 0.1 PT INR APTT Sodium Potassium Chloride Carbon Dioxide Anion Gap BUN Creatinine Est GFR ( Amer) Est GFR (Non-Af Amer) Random Glucose Lactic Acid 1.7 Calcium Phosphorus Magnesium Total Bilirubin AST ALT Alkaline Phosphatase Troponin I 0.0790 NT-Pro-B Natriuret Pep 46078 H Total Protein Albumin Globulin Albumin/Globulin Ratio Lipase Urine Color Urine Clarity Urine pH Ur Specific [place] Urine Protein Urine Glucose (UA) Urine Ketones Urine Blood Urine Nitrate Urine Bilirubin Urine Urobilinogen Ur Leukocyte Esterase Urine WBC (Auto) Urine RBC (Auto) Urine WBC Clumps (Auto) Urine Bacteria Urine Yeast (Budding) Stool Occult Blood Urine Opiates Screen Urine Methadone Screen Ur Barbiturates Screen Ur Phencyclidine Scrn Ur Amphetamines Screen U Benzodiazepines Scrn U Oth Cocaine Metabols U Cannabinoids Screen Blood Type Antibody Screen 02/21/18 02/21/18 02/22/18 21:45 21:45 03:21 WBC RBC Hgb Hct MCV MCH MCHC RDW Plt Count MPV Neut % (Auto) Lymph % (Auto) Sampson % (Auto) Eos % (Auto) Baso % (Auto) Neut # (Auto) Lymph # (Auto) Sampson # (Auto) Eos # (Auto) Baso # (Auto) PT INR APTT Sodium Potassium Chloride Carbon Dioxide Anion Gap BUN Creatinine Est GFR ( Amer) Est GFR (Non-Af Amer) Random Glucose Lactic Acid Calcium Phosphorus Magnesium 1.9 Total Bilirubin AST ALT Alkaline Phosphatase Troponin I NT-Pro-B Natriuret Pep Total Protein Albumin Globulin Albumin/Globulin Ratio Lipase Urine Color Yellow Urine Clarity Turbid Urine pH 5.0 Ur Specific [place] 1.011 Urine Protein 2+ H Urine Glucose (UA) Normal Urine Ketones Negative Urine Blood 1+ H Urine Nitrate Negative Urine Bilirubin Negative Urine Urobilinogen 2.0 Ur Leukocyte Esterase 3+ H Urine WBC (Auto) 2698 H Urine RBC (Auto) 35 H Urine WBC Clumps (Auto) Many H Urine Bacteria Few H Urine Yeast (Budding) Few H Stool Occult Blood Urine Opiates Screen Negative Urine Methadone Screen Negative Ur Barbiturates Screen Negative Ur Phencyclidine Scrn Negative Ur Amphetamines Screen Negative U Benzodiazepines Scrn Negative U Oth Cocaine Metabols Negative U Cannabinoids Screen Negative Blood Type Antibody Screen 02/22/18 02/22/18 02/22/18 06:26 06:26 06:26 WBC 5.4 RBC 2.07 L Hgb 6.4 L* Hct 19.0 L MCV 91.5 D MCH 31.0 MCHC 33.8 RDW 18.7 H Plt Count 129 L MPV 9.3 Neut % (Auto) 60.4 Lymph % (Auto) 27.2 Sampson % (Auto) 8.1 Eos % (Auto) 3.0 Baso % (Auto) 1.3 Neut # (Auto) 3.3 Lymph # (Auto) 1.5 Sampson # (Auto) 0.4 Eos # (Auto) 0.2 Baso # (Auto) 0.1 PT INR APTT Sodium 142 Potassium 4.3 Chloride 108 H Carbon Dioxide 27 Anion Gap 12 BUN 56 H Creatinine 2.1 H Est GFR ( Amer) 37 Est GFR (Non-Af Amer) 31 Random Glucose 168 H D Lactic Acid 1.4 Calcium 8.0 L Phosphorus 2.8 Magnesium 1.8 Total Bilirubin 1.4 H AST 17 ALT 23 Alkaline Phosphatase 76 Troponin I NT-Pro-B Natriuret Pep Total Protein 5.4 L Albumin 2.6 L Globulin 2.8 Albumin/Globulin Ratio 0.9 L Lipase Urine Color Urine Clarity Urine pH Ur Specific [place] Urine Protein Urine Glucose (UA) Urine Ketones Urine Blood Urine Nitrate Urine Bilirubin Urine Urobilinogen Ur Leukocyte Esterase Urine WBC (Auto) Urine RBC (Auto) Urine WBC Clumps (Auto) Urine Bacteria Urine Yeast (Budding) Stool Occult Blood Urine Opiates Screen Urine Methadone Screen Ur Barbiturates Screen Ur Phencyclidine Scrn Ur Amphetamines Screen U Benzodiazepines Scrn U Oth Cocaine Metabols U Cannabinoids Screen Blood Type Antibody Screen 02/22/18 06:26 WBC RBC Hgb Hct MCV MCH MCHC RDW Plt Count MPV Neut % (Auto) Lymph % (Auto) Sampson % (Auto) Eos % (Auto) Baso % (Auto) Neut # (Auto) Lymph # (Auto) Sampson # (Auto) Eos # (Auto) Baso # (Auto) PT 19.7 H D INR 1.8 D APTT Sodium Potassium Chloride Carbon Dioxide Anion Gap BUN Creatinine Est GFR ( Amer) Est GFR (Non-Af Amer) Random Glucose Lactic Acid Calcium Phosphorus Magnesium Total Bilirubin AST ALT Alkaline Phosphatase Troponin I NT-Pro-B Natriuret Pep Total Protein Albumin Globulin Albumin/Globulin Ratio Lipase Urine Color Urine Clarity Urine pH Ur Specific [place] Urine Protein Urine Glucose (UA) Urine Ketones Urine Blood Urine Nitrate Urine Bilirubin Urine Urobilinogen Ur Leukocyte Esterase Urine WBC (Auto) Urine RBC (Auto) Urine WBC Clumps (Auto) Urine Bacteria Urine Yeast (Budding) Stool Occult Blood Urine Opiates Screen Urine Methadone Screen Ur Barbiturates Screen Ur Phencyclidine Scrn Ur Amphetamines Screen U Benzodiazepines Scrn U Oth Cocaine Metabols U Cannabinoids Screen Blood Type Antibody Screen Assessment & Plan - Assessment and Plan (Free Text) Assessment: 77 yo WM with Afib on warfarin, CHF, Dementia, CAD presenting from [facility] with bloody stools. # GI Bleed: Suspect brisk upper source given anemia, elevated BUN, and dark ange on stools. # AFib: On warfarin. # Dementia: Non-communicative Plan: - Plan for emergent EGD this AM --- Dual physician consent after unable to contact - Volume resuscitation - PPI gtt - FFP to reverse INR - PRBC transfusions per primary, recommender ordering more units at bedside - NPO - 2 IV access - Hold blood thinners - Further recs pending EGD findings Pt seen and examined with Dr. Valle; see attestation for further recs/changes Christopher Man, PGY-4 <Yuniel Valle - Last Filed: 02/22/18 10:35> Meds - Medications Medications: Current Medications Pantoprazole Sodium 80 mg/ (Sodium Chloride) 100 mls @ 10 mls/hr IVP .Q10H [facility] Last Admin: 02/22/18 05:15 Dose: Not Given Piperacillin Sod/Tazobactam Sod (Zosyn 2.25 Gm Iv Premix) 2.25 gm in 50 mls @ 100 mls/hr IVPB Q8H [facility]; Protocol Stop: 02/26/18 20:46 Last Admin: 02/22/18 04:25 Dose: 100 mls/hr Insulin Aspart (Novolog) 0 unit SC Q6H [facility]; Protocol Results - Vital Signs Recent Vital Signs: Last Vital Signs Temp 98.3 F 02/22/18 09:24 Pulse 134 H 02/22/18 09:24 Resp 25 H 02/22/18 09:24 BP 116/73 02/22/18 09:24 Pulse Ox 100 02/22/18 07:00 - Labs Result Diagrams: 02/22/18 06:26 02/22/18 06:26 Labs: Laboratory Results - last 24 hr 02/21/18 02/21/18 02/21/18 17:40 17:40 17:40 WBC 4.2 L RBC 1.84 L Hgb 5.7 L* D Hct 17.7 L MCV 95.8 H MCH 31.0 MCHC 32.4 L RDW 18.9 H Plt Count 126 L D MPV 9.6 Neut % (Auto) 60.6 Lymph % (Auto) 26.2 Sampson % (Auto) 9.3 Eos % (Auto) 2.6 Baso % (Auto) 1.3 Neut # (Auto) 2.5 Lymph # (Auto) 1.1 Sampson # (Auto) 0.4 Eos # (Auto) 0.1 Baso # (Auto) 0.1 PT INR APTT Sodium 140 Potassium 4.3 Chloride 105 Carbon Dioxide 27 Anion Gap 13 BUN 58 H Creatinine 2.1 H Est GFR ( Amer) 37 Est GFR (Non-Af Amer) 31 Random Glucose 227 H D Lactic Acid Calcium 8.4 L Phosphorus Magnesium Total Bilirubin 0.7 AST 17 ALT 17 L Alkaline Phosphatase 82 Troponin I 0.0820 NT-Pro-B Natriuret Pep Total Protein 5.6 L Albumin 2.7 L Globulin 2.9 Albumin/Globulin Ratio 0.9 L Lipase 13 L Urine Color Urine Clarity Urine pH Ur Specific [place] Urine Protein Urine Glucose (UA) Urine Ketones Urine Blood Urine Nitrate Urine Bilirubin Urine Urobilinogen Ur Leukocyte Esterase Urine WBC (Auto) Urine RBC (Auto) Urine WBC Clumps (Auto) Urine Bacteria Urine Yeast (Budding) Stool Occult Blood Urine Opiates Screen Urine Methadone Screen Ur Barbiturates Screen Ur Phencyclidine Scrn Ur Amphetamines Screen U Benzodiazepines Scrn U Oth Cocaine Metabols U Cannabinoids Screen Blood Type A POSITIVE Antibody Screen Negative 02/21/18 02/21/18 02/21/18 17:46 17:50 18:26 WBC RBC Hgb Hct MCV MCH MCHC RDW Plt Count MPV Neut % (Auto) Lymph % (Auto) Sampson % (Auto) Eos % (Auto) Baso % (Auto) Neut # (Auto) Lymph # (Auto) Sampson # (Auto) Eos # (Auto) Baso # (Auto) PT 39.3 H INR 3.6 H* APTT 31 Sodium Potassium Chloride Carbon Dioxide Anion Gap BUN Creatinine Est GFR ( Amer) Est GFR (Non-Af Amer) Random Glucose Lactic Acid Calcium Phosphorus Magnesium Total Bilirubin AST ALT Alkaline Phosphatase Troponin I NT-Pro-B Natriuret Pep Total Protein Albumin Globulin Albumin/Globulin Ratio Lipase Urine Color Yellow Urine Clarity Hazy Urine pH 5.0 Ur Specific [place] 1.011 Urine Protein 2+ H Urine Glucose (UA) Normal Urine Ketones Negative Urine Blood 3+ H Urine Nitrate Negative Urine Bilirubin Negative Urine Urobilinogen 2.0 Ur Leukocyte Esterase 3+ H Urine WBC (Auto) 934 H Urine RBC (Auto) 95 H Urine WBC Clumps (Auto) Few H Urine Bacteria Many H Urine Yeast (Budding) Few H Stool Occult Blood Positive H Urine Opiates Screen Urine Methadone Screen Ur Barbiturates Screen Ur Phencyclidine Scrn Ur Amphetamines Screen U Benzodiazepines Scrn U Oth Cocaine Metabols U Cannabinoids Screen Blood Type Antibody Screen 02/21/18 02/21/18 02/21/18 19:55 20:42 21:15 WBC 4.7 L RBC 1.80 L Hgb 5.5 L* Hct 17.3 L MCV 96.1 H MCH 30.7 MCHC 31.9 L RDW 18.6 H Plt Count 129 L MPV 9.7 Neut % (Auto) 66.2 Lymph % (Auto) 19.9 L Sampson % (Auto) 9.7 Eos % (Auto) 3.1 Baso % (Auto) 1.1 Neut # (Auto) 3.1 Lymph # (Auto) 0.9 L Sampson # (Auto) 0.5 Eos # (Auto) 0.1 Baso # (Auto) 0.1 PT INR APTT Sodium Potassium Chloride Carbon Dioxide Anion Gap BUN Creatinine Est GFR ( Amer) Est GFR (Non-Af Amer) Random Glucose Lactic Acid 1.7 Calcium Phosphorus Magnesium Total Bilirubin AST ALT Alkaline Phosphatase Troponin I 0.0790 NT-Pro-B Natriuret Pep 30205 H Total Protein Albumin Globulin Albumin/Globulin Ratio Lipase Urine Color Urine Clarity Urine pH Ur Specific [place] Urine Protein Urine Glucose (UA) Urine Ketones Urine Blood Urine Nitrate Urine Bilirubin Urine Urobilinogen Ur Leukocyte Esterase Urine WBC (Auto) Urine RBC (Auto) Urine WBC Clumps (Auto) Urine Bacteria Urine Yeast (Budding) Stool Occult Blood Urine Opiates Screen Urine Methadone Screen Ur Barbiturates Screen Ur Phencyclidine Scrn Ur Amphetamines Screen U Benzodiazepines Scrn U Oth Cocaine Metabols U Cannabinoids Screen Blood Type Antibody Screen 02/21/18 02/21/18 02/22/18 21:45 21:45 03:21 WBC RBC Hgb Hct MCV MCH MCHC RDW Plt Count MPV Neut % (Auto) Lymph % (Auto) Sampson % (Auto) Eos % (Auto) Baso % (Auto) Neut # (Auto) Lymph # (Auto) Sampson # (Auto) Eos # (Auto) Baso # (Auto) PT INR APTT Sodium Potassium Chloride Carbon Dioxide Anion Gap BUN Creatinine Est GFR ( Amer) Est GFR (Non-Af Amer) Random Glucose Lactic Acid Calcium Phosphorus Magnesium 1.9 Total Bilirubin AST ALT Alkaline Phosphatase Troponin I NT-Pro-B Natriuret Pep Total Protein Albumin Globulin Albumin/Globulin Ratio Lipase Urine Color Yellow Urine Clarity Turbid Urine pH 5.0 Ur Specific [place] 1.011 Urine Protein 2+ H Urine Glucose (UA) Normal Urine Ketones Negative Urine Blood 1+ H Urine Nitrate Negative Urine Bilirubin Negative Urine Urobilinogen 2.0 Ur Leukocyte Esterase 3+ H Urine WBC (Auto) 2698 H Urine RBC (Auto) 35 H Urine WBC Clumps (Auto) Many H Urine Bacteria Few H Urine Yeast (Budding) Few H Stool Occult Blood Urine Opiates Screen Negative Urine Methadone Screen Negative Ur Barbiturates Screen Negative Ur Phencyclidine Scrn Negative Ur Amphetamines Screen Negative U Benzodiazepines Scrn Negative U Oth Cocaine Metabols Negative U Cannabinoids Screen Negative Blood Type Antibody Screen 02/22/18 02/22/18 02/22/18 06:26 06:26 06:26 WBC 5.4 RBC 2.07 L Hgb 6.4 L* Hct 19.0 L MCV 91.5 D MCH 31.0 MCHC 33.8 RDW 18.7 H Plt Count 129 L MPV 9.3 Neut % (Auto) 60.4 Lymph % (Auto) 27.2 Sampson % (Auto) 8.1 Eos % (Auto) 3.0 Baso % (Auto) 1.3 Neut # (Auto) 3.3 Lymph # (Auto) 1.5 Sampson # (Auto) 0.4 Eos # (Auto) 0.2 Baso # (Auto) 0.1 PT INR APTT Sodium 142 Potassium 4.3 Chloride 108 H Carbon Dioxide 27 Anion Gap 12 BUN 56 H Creatinine 2.1 H Est GFR ( Amer) 37 Est GFR (Non-Af Amer) 31 Random Glucose 168 H D Lactic Acid 1.4 Calcium 8.0 L Phosphorus 2.8 Magnesium 1.8 Total Bilirubin 1.4 H AST 17 ALT 23 Alkaline Phosphatase 76 Troponin I NT-Pro-B Natriuret Pep Total Protein 5.4 L Albumin 2.6 L Globulin 2.8 Albumin/Globulin Ratio 0.9 L Lipase Urine Color Urine Clarity Urine pH Ur Specific [place] Urine Protein Urine Glucose (UA) Urine Ketones Urine Blood Urine Nitrate Urine Bilirubin Urine Urobilinogen Ur Leukocyte Esterase Urine WBC (Auto) Urine RBC (Auto) Urine WBC Clumps (Auto) Urine Bacteria Urine Yeast (Budding) Stool Occult Blood Urine Opiates Screen Urine Methadone Screen Ur Barbiturates Screen Ur Phencyclidine Scrn Ur Amphetamines Screen U Benzodiazepines Scrn U Oth Cocaine Metabols U Cannabinoids Screen Blood Type Antibody Screen 02/22/18 06:26 WBC RBC Hgb Hct MCV MCH MCHC RDW Plt Count MPV Neut % (Auto) Lymph % (Auto) Sampson % (Auto) Eos % (Auto) Baso % (Auto) Neut # (Auto) Lymph # (Auto) Sampson # (Auto) Eos # (Auto) Baso # (Auto) PT 19.7 H D INR 1.8 D APTT Sodium Potassium Chloride Carbon Dioxide Anion Gap BUN Creatinine Est GFR ( Amer) Est GFR (Non-Af Amer) Random Glucose Lactic Acid Calcium Phosphorus Magnesium Total Bilirubin AST ALT Alkaline Phosphatase Troponin I NT-Pro-B Natriuret Pep Total Protein Albumin Globulin Albumin/Globulin Ratio Lipase Urine Color Urine Clarity Urine pH Ur Specific [place] Urine Protein Urine Glucose (UA) Urine Ketones Urine Blood Urine Nitrate Urine Bilirubin Urine Urobilinogen Ur Leukocyte Esterase Urine WBC (Auto) Urine RBC (Auto) Urine WBC Clumps (Auto) Urine Bacteria Urine Yeast (Budding) Stool Occult Blood Urine Opiates Screen Urine Methadone Screen Ur Barbiturates Screen Ur Phencyclidine Scrn Ur Amphetamines Screen U Benzodiazepines Scrn U Oth Cocaine Metabols U Cannabinoids Screen Blood Type Antibody Screen Attending/Attestation - Attestation I have personally seen and examined this patient.: Yes I have fully participated in the care of the patient.: Yes I have reviewed all pertinent clinical information: Yes Notes (Text): 02/22/18 10:29 I have seen and examined patient with GI fellow. Agree with above documentation with the following additions. In brief, this is a 77 year old male with history of atrial fibrillation on coumadin, dementia, CHF, HTN, DM, who was [facility] for evaluation of rectal bleeding. Patient is not able to provide additional history given underlying dementia with altered mental status, additional information obtained via chart review and discussion with nursing and intensive care staff. Patient has been having multiple episodes of melena mixed with fresh red bleeding with inappropriate response to PRBC transfusion. There is no reported abdominal pain, nausea, vomiting, fever/chills. Unknown prior endoscopic history. Atrial fibrillation on coumadin Dementia CHF DM / HTN Rectal bleeding, melena - severe posing threat to patient life with inadequate response to PRBC transfusion - NPO - Patient receiving 3rd unit PRBC at this moment, continue to monitor H/H - INR initially supratherapeutic, Patient received FFP, continue to monitor - Continue with PPI therapy - Given life threatening bleeding, 2 physician consent obtained since inability to contact patient guardian/family members despite multiple attempts - Suggest surgical consultation - Further recommendations following endoscopic evaluation
--- NOTE | 2018-02-22 10:15 | RAD ---
HISTORY: GI Bleeding COMPARISON: Chest x-ray performed 02/10/18 TECHNIQUE: Chest, one view. FINDINGS: Examination limited by habitus and hypoinflation. LUNGS: Bibasilar atelectasis. Small left pleural effusion. Mild to moderate pulmonary venous congestion. No definite pneumothorax. Please note that chest x-ray has limited sensitivity for the detection of pulmonary masses. CARDIOVASCULAR: Cardiomegaly. Aortic ectasia. Dense atherosclerotic calcification present. OSSEOUS STRUCTURES: Degenerative changes of the spine and shoulders. Acromioclavicular arthropathy. VISUALIZED UPPER ABDOMEN: Unremarkable. OTHER FINDINGS: None. IMPRESSION: Bibasilar atelectasis. Small left pleural effusion. Mild to moderate pulmonary venous congestion. Hypoinflation. Cardiomegaly.
[2018-02-22] MEDS ORDERED: Etomidate 20 mg/10ml Inj IV ONE ×2 (10:33→10:56)
--- NOTE | 2018-02-22 10:40 | CT ---
Date of service: 02/21/2018 PROCEDURE: CT Abdomen and Pelvis without intravenous contrast HISTORY: GI Bleeding COMPARISON: 12/08/2016 TECHNIQUE: Technique. Contrast dose: Radiation dose: Total exam DLP = 2776.88 mGy-cm. This CT exam was performed using one or more of the following dose reduction techniques: Automated exposure control, adjustment of the mA and/or kV according to patient size, and/or use of iterative reconstruction technique. FINDINGS: LOWER THORAX: Small bilateral pleural effusions and subsegmental atelectasis. LIVER: Unremarkable. No gross lesion or ductal dilatation. GALLBLADDER AND BILE DUCTS: Unremarkable. PANCREAS: Unremarkable. No gross lesion or ductal dilatation. SPLEEN: Unremarkable. ADRENALS: Unremarkable. No mass. KIDNEYS AND URETERS: Left ureteral stent present. Proximal limb of the stent is in the medial aspect of the left kidney. Poorly defined left kidney which is likely severely hydronephrotic and cystic. VASCULATURE: Unremarkable. No aortic aneurysm. No aortic atherosclerotic calcification or mural plaque present. BOWEL: Unremarkable. No obstruction. No gross mural thickening. APPENDIX: Unremarkable. Normal appendix. PERITONEUM: Unremarkable. No free fluid. No free air. LYMPH NODES: Unremarkable. No enlarged lymph nodes. BLADDER: Unremarkable. REPRODUCTIVE: Lord catheter tip in the prostate gland not in the urinary bladder. BONES: No acute fracture. OTHER FINDINGS: None. IMPRESSION: Left ureteral stent present. Proximal limb of the stent is in the medial aspect of the left kidney. Poorly defined left kidney which is likely severely hydronephrotic and cystic.Lord catheter tip in the prostate gland not in the urinary bladder. Small bilateral pleural effusions and subsegmental atelectasis.
--- NOTE | 2018-02-22 15:44 | CP.PCM.PCO ---
Physician Communication Note - Physician Communication Note Physician Communication Note: number is [phone]
--- NOTE | 2018-02-22 17:04 | NM ---
Date of service: 02/22/2018 PROCEDURE: Nuclear medicine gastrointestinal bleeding scan. HISTORY: Acute GIB, EGD w/o clear source COMPARISON: None available. TECHNIQUE: 4ccof patient blood was withdrawn and mixed with 24.3mCi of technetium ultra tagged. Images of the abdomen and pelvis were obtained in the anterior and posterior projection at 1 min intervals over a period of 45 min. FINDINGS: No abnormal extravasation of tracer was observed throughout the exam to indicate active bleeding within or outside the gastrointestinal tract. Physiologic activity was seen in the heart, liver, spleen and blood vessels. IMPRESSION: No evidence of active gastrointestinal bleeding.
[2018-02-22 18:46] LABS: HEMOGLOBIN 7.8 g/dL (12.0-18.0); MEAN CELL VOLUME 87.9 fL (80.0-94.0); MEAN CORPUSCULAR HEMOGLOBIN 29.1 pg (27.0-31.0); MEAN CORPUSCULAR HGB CONC 33.1 g/dL (33.0-37.0); MEAN PLATELET VOLUME 9.1 fL (7.2-11.7); RBC 2.67 Mil/uL (4.40-5.90); RED CELL DISTRIBUTION WIDTH 19.3 % (11.5-14.5); WHITE BLOOD COUNT 6.2 K/uL (4.8-10.8)
[2018-02-22] MEDS ORDERED: Peg-Electrolyte Oral Soln 4L (Golytely) PO STA (21:25)
--- NOTE | 2018-02-22 22:24 | CP.PCM.HP ---
Past Patient History - Infectious Disease Hx of Infectious Diseases: None - Tetanus Immunizations Tetanus Immunization: Unknown - Past Medical History & Family History Past Medical History?: Yes - Past Social History Smoking Status: Never Smoked - CARDIAC Hx Atrial Fibrillation: Yes Hx Congestive Heart Failure: Yes Hx Hypercholesterolemia: Yes Hx Hypertension: Yes - PULMONARY Hx Chronic Obstructive Pulmonary Disease (COPD): No - NEUROLOGICAL Hx Neurological Disorder: No - HEENT Hx HEENT Problems: No - RENAL Hx Chronic Kidney Disease: No - ENDOCRINE/METABOLIC Hx Hypothyroidism: No - HEMATOLOGICAL/ONCOLOGICAL Hx Anemia: Yes Hx Human Immunodeficiency Virus (HIV): No - INTEGUMENTARY Hx Dermatological Problems: No - MUSCULOSKELETAL/RHEUMATOLOGICAL Hx Arthritis: No Hx Falls: Yes Hx Rheumatoid Arthritis: No - GASTROINTESTINAL Hx Gastrointestinal Disorders: No - GENITOURINARY/GYNECOLOGICAL Hx Genitourinary Disorders: No - PSYCHIATRIC Hx Substance Use: No - SURGICAL HISTORY Hx Coronary Stent: Yes - ANESTHESIA Hx Anesthesia: Yes Hx Anesthesia Reactions: No Hx Malignant Hyperthermia: No Meds Allergies/Adverse Reactions: Allergies Allergy/AdvReac Type Severity Reaction Status Date / Time No Known Allergies Allergy Verified 02/21/18 17:15 Results - Vital Signs Recent Vital Signs: Last Vital Signs Temp 98.6 F 02/22/18 22:05 Pulse 123 H 02/22/18 22:05 Resp 23 02/22/18 22:05 BP 126/84 02/22/18 22:05 Pulse Ox 100 02/22/18 21:00 - Labs Result Diagrams: 02/22/18 18:43 02/22/18 06:26 Labs: Laboratory Results - last 24 hr 02/21/18 02/21/18 02/21/18 17:18 17:40 23:59 WBC RBC Hgb Hct MCV MCH MCHC RDW Plt Count MPV Neut % (Auto) Lymph % (Auto) [place] % (Auto) Eos % (Auto) Baso % (Auto) Neut # (Auto) Lymph # (Auto) [place] # (Auto) Eos # (Auto) Baso # (Auto) PT INR Sodium Potassium Chloride Carbon Dioxide Anion Gap BUN Creatinine Est GFR ( Amer) Est GFR (Non-Af Amer) POC Glucose (mg/dL) 236 H 191 H Random Glucose Lactic Acid Calcium Phosphorus Magnesium Total Bilirubin AST ALT Alkaline Phosphatase Total Protein Albumin Globulin Albumin/Globulin Ratio Blood Type A POSITIVE Antibody Screen Negative 02/22/18 02/22/18 02/22/18 02:27 03:21 06:26 WBC RBC Hgb Hct MCV MCH MCHC RDW Plt Count MPV Neut % (Auto) Lymph % (Auto) [place] % (Auto) Eos % (Auto) Baso % (Auto) Neut # (Auto) Lymph # (Auto) [place] # (Auto) Eos # (Auto) Baso # (Auto) PT INR Sodium Potassium Chloride Carbon Dioxide Anion Gap BUN Creatinine Est GFR ( Amer) Est GFR (Non-Af Amer) POC Glucose (mg/dL) 185 H Random Glucose Lactic Acid 1.4 Calcium Phosphorus Magnesium 1.9 Total Bilirubin AST ALT Alkaline Phosphatase Total Protein Albumin Globulin Albumin/Globulin Ratio Blood Type Antibody Screen 02/22/18 02/22/18 02/22/18 06:26 06:26 06:26 WBC 5.4 RBC 2.07 L Hgb 6.4 L* Hct 19.0 L MCV 91.5 D MCH 31.0 MCHC 33.8 RDW 18.7 H Plt Count 129 L MPV 9.3 Neut % (Auto) 60.4 Lymph % (Auto) 27.2 Webster % (Auto) 8.1 Eos % (Auto) 3.0 Baso % (Auto) 1.3 Neut # (Auto) 3.3 Lymph # (Auto) 1.5 Webster # (Auto) 0.4 Eos # (Auto) 0.2 Baso # (Auto) 0.1 PT 19.7 H D INR 1.8 D Sodium 142 Potassium 4.3 Chloride 108 H Carbon Dioxide 27 Anion Gap 12 BUN 56 H Creatinine 2.1 H Est GFR ( Amer) 37 Est GFR (Non-Af Amer) 31 POC Glucose (mg/dL) Random Glucose 168 H D Lactic Acid Calcium 8.0 L Phosphorus 2.8 Magnesium 1.8 Total Bilirubin 1.4 H AST 17 ALT 23 Alkaline Phosphatase 76 Total Protein 5.4 L Albumin 2.6 L Globulin 2.8 Albumin/Globulin Ratio 0.9 L Blood Type Antibody Screen 02/22/18 02/22/18 02/22/18 11:58 18:43 18:54 WBC 6.2 RBC 2.67 L Hgb 7.8 L Hct 23.4 L MCV 87.9 D MCH 29.1 MCHC 33.1 RDW 19.3 H Plt Count 132 MPV 9.1 Neut % (Auto) Lymph % (Auto) Webster % (Auto) Eos % (Auto) Baso % (Auto) Neut # (Auto) Lymph # (Auto) [place] # (Auto) Eos # (Auto) Baso # (Auto) PT INR Sodium Potassium Chloride Carbon Dioxide Anion Gap BUN Creatinine Est GFR ( Amer) Est GFR (Non-Af Amer) POC Glucose (mg/dL) 170 H 172 H Random Glucose Lactic Acid Calcium Phosphorus Magnesium Total Bilirubin AST ALT Alkaline Phosphatase Total Protein Albumin Globulin Albumin/Globulin Ratio Blood Type Antibody Screen
[2018-02-23] MEDS: (Novolog) Insulin Aspart, Recombinant 100 u/ml 10 ml vial SC SCH ×4 (00:16→17:52)
[2018-02-23 05:13] LABS: BASO # 0.1 K/uL (0.0-0.2); BASO % 1.2 % (0.0-2.0); EOS # 0.3 K/uL (0.0-0.7); EOS % 5.9 % (0.0-4.0); HEMOGLOBIN 8.2 g/dL (12.0-18.0); LYMPH # 1.1 K/uL (1.0-4.3); LYMPH % 20.6 % (20.0-40.0); MEAN CELL VOLUME 87.5 fL (80.0-94.0); MEAN CORPUSCULAR HEMOGLOBIN 30.1 pg (27.0-31.0); MEAN CORPUSCULAR HGB CONC 34.4 g/dL (33.0-37.0); MEAN PLATELET VOLUME 8.6 fL (7.2-11.7); MONO # 0.4 K/uL (0.0-0.8); MONO % 7.9 % (0.0-10.0); NEUT # 3.4 K/uL (1.8-7.0); NEUT % 64.4 % (50.0-75.0); RBC 2.72 Mil/uL (4.40-5.90); RED CELL DISTRIBUTION WIDTH 19.1 % (11.5-14.5); WHITE BLOOD COUNT 5.2 K/uL (4.8-10.8)
[2018-02-23 05:47] LABS: ALBUMIN 2.9 g/dL (3.5-5.0); CALCIUM 8.6 mg/dl (8.6-10.4)
[2018-02-23] MEDS: Piperacill/Tazo 2.25gm in Dex 2.25 GM/50 ML BAG IVPB SCH (06:00)
[2018-02-23] MEDS ORDERED: Peg-Electrolyte Oral Soln 4L (Golytely) NG ONE (07:42)
[2018-02-23] MEDS ORDERED: Sodium Chloride 0.9% 1,000 ML IV SCH (09:45)
[2018-02-23] MEDS ORDERED: Magnesium Sulfate 1 gm in D5W 1 GM/100 ML BAG IVPB ONE (10:00)
[2018-02-23] MEDS: Sodium Chloride 0.9% 1,000 ML IV SCH (10:02)
[2018-02-23] MEDS: Meropenem 500 MG in Sodium Chloride 0.9% 100 ML IVPB SCH ×2 (10:15→16:45)
--- NOTE | 2018-02-23 11:50 | CP.CCUPN ---
<Paulina Brown - Last Filed: 02/23/18 11:47> CCU Subjective - Physician Review Events Since Last Encounter (Free Text): 02/23/18 11:47 1 unit of FFP received overnight Subjective (Free Text): 02/22/18 10:06 PGY-1 Critical Care Progress Note for Dr. Becerra's service Patient seen and examined at bedside. Patient has baseline AMS. Patient will receive midline. 12 point ROS limited 2/2 patient clinical condition. CCU Objective - Vital Signs / Intake & Output Vital Signs (Last 4 hours): Vital Signs Temp Pulse Resp BP Pulse Ox 02/23/18 11:22 110 H 22 136/79 91 L 02/23/18 11:00 121 H 17 02/23/18 10:22 121 H 19 141/86 02/23/18 10:15 130 H 18 134/88 02/23/18 10:00 142 H 22 02/23/18 09:54 140 H 23 151/90 H 02/23/18 09:22 135 H 18 160/112 H 100 02/23/18 09:12 140 H 22 168/103 H 02/23/18 09:00 129 H 26 H 100 02/23/18 08:22 136 H 25 H 162/97 H 95 02/23/18 08:00 98.1 F 136 H 21 100 Intake and Output (Last 8hrs): Intake & Output 02/22/18 02/23/18 02/23/18 22:59 06:59 14:59 Intake Total 885 384 2794 Output Total 850 1050 400 Balance 25 -200 1720 Weight 202 lb Intake: IV 5 Intake, IV Amount 0 150 115 Left Forearm 50 Right Antecubital 15 Right Forearm 0 100 100 Oral 0 Tube Feeding 2000 Blood Product 775 700 Red Blood Cells Cpd As1 0 325 Lr Unit [id number] Red Blood Cells Cpd As1 225 Lr Unit [id number] Other 100 Red Blood Cells Cpd As1 50 Lr Unit [id number] Output: Urine 850 1050 400 Urethral (Paulson) 850 1050 400 Emesis 0 0 Other: # Bowel Movements 1 1 0 - Physical Exam Head: Positive for: Atraumatic, Normocephalic Extroacular Muscles: Positive for: EOMI Mouth: Positive for: Dry Respiratory/Chest: Positive for: Clear to Auscultation, Good Air Exchange. Negative for: Respiratory Distress, Accessory Muscle Use Cardiovascular: Positive for: Normal S1, S2, Tachycardic Abdomen: Positive for: Normal Bowel Sounds. Negative for: Tenderness, Distention, Peritoneal Signs Upper Extremity: Positive for: Normal Inspection. Negative for: Cyanosis, Edema Lower Extremity: Positive for: Normal Inspection. Negative for: Edema Skin: Positive for: Dry, Normal Color. Negative for: Rashes, Diaphoretic Psychiatric: Negative for: Oriented x 3 - Medications Active Medications: Active Medications Generic Name Dose Route Start Last Admin Trade Name Freq PRN Reason Stop Dose Admin Diltiazem HCl 125 mg/ Sodium 125 mls @ 5 mls/hr 02/23/18 09:00 02/23/18 09:25 Chloride IV 10 mg/hr .Q24H WALDEMAR 10 mls/hr Titration Protocol 5 MG/HR Meropenem 500 mg/ Sodium 100 mls @ 100 mls/hr 02/23/18 09:30 02/23/18 10:15 Chloride IVPB 100 mls/hr Q8H WALDEMAR Administration Protocol Sodium Chloride 1,000 mls @ 50 mls/hr 02/23/18 09:45 02/23/18 10:02 Sodium Chloride 0.9% IV 50 mls/hr .Q20H WALDEMAR Administration Insulin Aspart 0 unit 02/22/18 12:00 02/23/18 06:00 Novolog SC Not Given Q6H WALDEMAR Protocol Morphine Sulfate 2 mg 02/22/18 23:02 02/23/18 10:00 Morphine IVP 2 mg Q6 PRN Administration for c/o back/lower Pantoprazole Sodium 40 mg 02/22/18 22:00 02/23/18 09:19 Protonix Inj IVP 40 mg Q12 WALDEMAR Administration - Patient Studies Lab Studies: Microbiology Studies 02/21/18 17:46 Urine Culture - Final Urine Escherichia Coli 02/21/18 21:45 Urine Culture - Final Urine,Paulson Escherichia Coli 02/21/18 22:46 Blood Culture - Preliminary Blood-Venous NO GROWTH AFTER 24 HOURS 02/21/18 19:10 Blood Culture - Preliminary Blood-Venous NO GROWTH AFTER 24 HOURS 02/21/18 22:06 MRSA Culture (Admit) - Final Nose MRSA NOT DETECTED Lab Studies 02/23/18 02/23/18 02/23/18 Range/Units 05:43 05:10 05:10 WBC 5.2 (4.8-10.8) K/uL RBC 2.72 L (4.40-5.90) Mil/uL Hgb 8.2 L (12.0-18.0) g/dL Hct 23.8 L (35.0-51.0) % MCV 87.5 (80.0-94.0) fL MCH 30.1 (27.0-31.0) pg MCHC 34.4 (33.0-37.0) g/dL RDW 19.1 H (11.5-14.5) % Plt Count 125 L (130-400) K/uL MPV 8.6 (7.2-11.7) fL Neut % (Auto) 64.4 (50.0-75.0) % Lymph % (Auto) 20.6 (20.0-40.0) % [place] % (Auto) 7.9 (0.0-10.0) % Eos % (Auto) 5.9 H (0.0-4.0) % Baso % (Auto) 1.2 (0.0-2.0) % Neut # (Auto) 3.4 (1.8-7.0) K/uL Lymph # (Auto) 1.1 (1.0-4.3) K/uL [place] # (Auto) 0.4 (0.0-0.8) K/uL Eos # (Auto) 0.3 (0.0-0.7) K/uL Baso # (Auto) 0.1 (0.0-0.2) K/uL Sodium 146 (132-148) mmol/L Potassium 3.8 (3.6-5.2) mmol/L Chloride 112 H (98-107) mmol/L Carbon Dioxide 26 (22-30) mmol/L Anion Gap 12 (10-20) BUN 52 H (9-20) mg/dL Creatinine 2.1 H (0.8-1.5) mg/dL Est GFR ( Amer) 37 Est GFR (Non-Af Amer) 31 POC Glucose (mg/dL) 168 H (65-110) mg/dL Random Glucose 166 H (75-110) mg/dL Calcium 8.6 (8.6-10.4) mg/dl Phosphorus 2.9 (2.5-4.5) mg/dL Magnesium 1.9 (1.6-2.3) mg/dL Total Bilirubin 1.3 (0.2-1.3) mg/dL AST 21 (17-59) U/L ALT 18 L D (21-72) U/L Alkaline Phosphatase 80 (38-126) U/L Total Protein 5.7 L (6.3-8.3) g/dL Albumin 2.9 L (3.5-5.0) g/dL Globulin 2.8 (2.2-3.9) gm/dL Albumin/Globulin Ratio 1.0 (1.0-2.1) Ur Opiates (GC/MS) (Negative) 300 Ur Methadone, Qual (Negative) 300 Urine Propoxyphene (Negative) 300 Methaqualone (Negative) 300 Ur Barbiturates, Qual (Negative) 300 Ur Phencyclidine (PCP) (Negative) 25 Ur Amphetamines Screen (Negative) 1000 U Benzodiazepines Qual (Negative) 300 Urine Cocaine (Negative) 300 U Marijuana (THC) Screen (Negative) 50 Drugs of Abuse Note Blood Type Antibody Screen 02/23/18 02/22/18 02/22/18 Range/Units 00:12 18:54 18:43 WBC 6.2 (4.8-10.8) K/uL RBC 2.67 L (4.40-5.90) Mil/uL Hgb 7.8 L (12.0-18.0) g/dL Hct 23.4 L (35.0-51.0) % MCV 87.9 D (80.0-94.0) fL MCH 29.1 (27.0-31.0) pg MCHC 33.1 (33.0-37.0) g/dL RDW 19.3 H (11.5-14.5) % Plt Count 132 (130-400) K/uL MPV 9.1 (7.2-11.7) fL Neut % (Auto) (50.0-75.0) % Lymph % (Auto) (20.0-40.0) % [place] % (Auto) (0.0-10.0) % Eos % (Auto) (0.0-4.0) % Baso % (Auto) (0.0-2.0) % Neut # (Auto) (1.8-7.0) K/uL Lymph # (Auto) (1.0-4.3) K/uL [place] # (Auto) (0.0-0.8) K/uL Eos # (Auto) (0.0-0.7) K/uL Baso # (Auto) (0.0-0.2) K/uL Sodium (132-148) mmol/L Potassium (3.6-5.2) mmol/L Chloride (98-107) mmol/L Carbon Dioxide (22-30) mmol/L Anion Gap (10-20) BUN (9-20) mg/dL Creatinine (0.8-1.5) mg/dL Est GFR ( Amer) Est GFR (Non-Af Amer) POC Glucose (mg/dL) 171 H 172 H (65-110) mg/dL Random Glucose (75-110) mg/dL Calcium (8.6-10.4) mg/dl Phosphorus (2.5-4.5) mg/dL Magnesium (1.6-2.3) mg/dL Total Bilirubin (0.2-1.3) mg/dL AST (17-59) U/L ALT (21-72) U/L Alkaline Phosphatase (38-126) U/L Total Protein (6.3-8.3) g/dL Albumin (3.5-5.0) g/dL Globulin (2.2-3.9) gm/dL Albumin/Globulin Ratio (1.0-2.1) Ur Opiates (GC/MS) (Negative) 300 Ur Methadone, Qual (Negative) 300 Urine Propoxyphene (Negative) 300 Methaqualone (Negative) 300 Ur Barbiturates, Qual (Negative) 300 Ur Phencyclidine (PCP) (Negative) 25 Ur Amphetamines Screen (Negative) 1000 U Benzodiazepines Qual (Negative) 300 Urine Cocaine (Negative) 300 U Marijuana (THC) Screen (Negative) 50 Drugs of Abuse Note Blood Type Antibody Screen 02/22/18 02/22/18 02/21/18 Range/Units 11:58 02:27 23:59 WBC (4.8-10.8) K/uL RBC (4.40-5.90) Mil/uL Hgb (12.0-18.0) g/dL Hct (35.0-51.0) % MCV (80.0-94.0) fL MCH (27.0-31.0) pg MCHC (33.0-37.0) g/dL RDW (11.5-14.5) % Plt Count (130-400) K/uL MPV (7.2-11.7) fL Neut % (Auto) (50.0-75.0) % Lymph % (Auto) (20.0-40.0) % [place] % (Auto) (0.0-10.0) % Eos % (Auto) (0.0-4.0) % Baso % (Auto) (0.0-2.0) % Neut # (Auto) (1.8-7.0) K/uL Lymph # (Auto) (1.0-4.3) K/uL [place] # (Auto) (0.0-0.8) K/uL Eos # (Auto) (0.0-0.7) K/uL Baso # (Auto) (0.0-0.2) K/uL Sodium (132-148) mmol/L Potassium (3.6-5.2) mmol/L Chloride (98-107) mmol/L Carbon Dioxide (22-30) mmol/L Anion Gap (10-20) BUN (9-20) mg/dL Creatinine (0.8-1.5) mg/dL Est GFR ( Amer) Est GFR (Non-Af Amer) POC Glucose (mg/dL) 170 H 185 H 191 H (65-110) mg/dL Random Glucose (75-110) mg/dL Calcium (8.6-10.4) mg/dl Phosphorus (2.5-4.5) mg/dL Magnesium (1.6-2.3) mg/dL Total Bilirubin (0.2-1.3) mg/dL AST (17-59) U/L ALT (21-72) U/L Alkaline Phosphatase (38-126) U/L Total Protein (6.3-8.3) g/dL Albumin (3.5-5.0) g/dL Globulin (2.2-3.9) gm/dL Albumin/Globulin Ratio (1.0-2.1) Ur Opiates (GC/MS) (Negative) 300 Ur Methadone, Qual (Negative) 300 Urine Propoxyphene (Negative) 300 Methaqualone (Negative) 300 Ur Barbiturates, Qual (Negative) 300 Ur Phencyclidine (PCP) (Negative) 25 Ur Amphetamines Screen (Negative) 1000 U Benzodiazepines Qual (Negative) 300 Urine Cocaine (Negative) 300 U Marijuana (THC) Screen (Negative) 50 Drugs of Abuse Note Blood Type Antibody Screen 02/21/18 02/21/18 02/21/18 Range/Units 21:45 17:40 17:18 WBC (4.8-10.8) K/uL RBC (4.40-5.90) Mil/uL Hgb (12.0-18.0) g/dL Hct (35.0-51.0) % MCV (80.0-94.0) fL MCH (27.0-31.0) pg MCHC (33.0-37.0) g/dL RDW (11.5-14.5) % Plt Count (130-400) K/uL MPV (7.2-11.7) fL Neut % (Auto) (50.0-75.0) % Lymph % (Auto) (20.0-40.0) % [place] % (Auto) (0.0-10.0) % Eos % (Auto) (0.0-4.0) % Baso % (Auto) (0.0-2.0) % Neut # (Auto) (1.8-7.0) K/uL Lymph # (Auto) (1.0-4.3) K/uL [place] # (Auto) (0.0-0.8) K/uL Eos # (Auto) (0.0-0.7) K/uL Baso # (Auto) (0.0-0.2) K/uL Sodium (132-148) mmol/L Potassium (3.6-5.2) mmol/L Chloride (98-107) mmol/L Carbon Dioxide (22-30) mmol/L Anion Gap (10-20) BUN (9-20) mg/dL Creatinine (0.8-1.5) mg/dL Est GFR ( Amer) Est GFR (Non-Af Amer) POC Glucose (mg/dL) 236 H (65-110) mg/dL Random Glucose (75-110) mg/dL Calcium (8.6-10.4) mg/dl Phosphorus (2.5-4.5) mg/dL Magnesium (1.6-2.3) mg/dL Total Bilirubin (0.2-1.3) mg/dL AST (17-59) U/L ALT (21-72) U/L Alkaline Phosphatase (38-126) U/L Total Protein (6.3-8.3) g/dL Albumin (3.5-5.0) g/dL Globulin (2.2-3.9) gm/dL Albumin/Globulin Ratio (1.0-2.1) Ur Opiates (GC/MS) Negative (Negative) 300 Ur Methadone, Qual Negative (Negative) 300 Urine Propoxyphene Negative (Negative) 300 Methaqualone Negative (Negative) 300 Ur Barbiturates, Qual Negative (Negative) 300 Ur Phencyclidine (PCP) Negative (Negative) 25 Ur Amphetamines Screen Negative (Negative) 1000 U Benzodiazepines Qual Negative (Negative) 300 Urine Cocaine Negative (Negative) 300 U Marijuana (THC) Screen Negative (Negative) 50 Drugs of Abuse Note See note Blood Type A POSITIVE Antibody Screen Negative Laboratory Results - last 24 hr 02/21/18 02/21/18 02/21/18 17:18 17:40 21:45 WBC RBC Hgb Hct MCV MCH MCHC RDW Plt Count MPV Neut % (Auto) Lymph % (Auto) [place] % (Auto) Eos % (Auto) Baso % (Auto) Neut # (Auto) Lymph # (Auto) [place] # (Auto) Eos # (Auto) Baso # (Auto) Sodium Potassium Chloride Carbon Dioxide Anion Gap BUN Creatinine Est GFR ( Amer) Est GFR (Non-Af Amer) POC Glucose (mg/dL) 236 H Random Glucose Calcium Phosphorus Magnesium Total Bilirubin AST ALT Alkaline Phosphatase Total Protein Albumin Globulin Albumin/Globulin Ratio Ur Opiates (GC/MS) Negative Ur Methadone, Qual Negative Urine Propoxyphene Negative Methaqualone Negative Ur Barbiturates, Qual Negative Ur Phencyclidine (PCP) Negative Ur Amphetamines Screen Negative U Benzodiazepines Qual Negative Urine Cocaine Negative U Marijuana (THC) Screen Negative Drugs of Abuse Note See note Blood Type A POSITIVE Antibody Screen Negative 02/21/18 02/22/18 02/22/18 23:59 02:27 11:58 WBC RBC Hgb Hct MCV MCH MCHC RDW Plt Count MPV Neut % (Auto) Lymph % (Auto) [place] % (Auto) Eos % (Auto) Baso % (Auto) Neut # (Auto) Lymph # (Auto) [place] # (Auto) Eos # (Auto) Baso # (Auto) Sodium Potassium Chloride Carbon Dioxide Anion Gap BUN Creatinine Est GFR ( Amer) Est GFR (Non-Af Amer) POC Glucose (mg/dL) 191 H 185 H 170 H Random Glucose Calcium Phosphorus Magnesium Total Bilirubin AST ALT Alkaline Phosphatase Total Protein Albumin Globulin Albumin/Globulin Ratio Ur Opiates (GC/MS) Ur Methadone, Qual Urine Propoxyphene Methaqualone Ur Barbiturates, Qual Ur Phencyclidine (PCP) Ur Amphetamines Screen U Benzodiazepines Qual Urine Cocaine U Marijuana (THC) Screen Drugs of Abuse Note Blood Type Antibody Screen 02/22/18 02/22/18 02/23/18 18:43 18:54 00:12 WBC 6.2 RBC 2.67 L Hgb 7.8 L Hct 23.4 L MCV 87.9 D MCH 29.1 MCHC 33.1 RDW 19.3 H Plt Count 132 MPV 9.1 Neut % (Auto) Lymph % (Auto) [place] % (Auto) Eos % (Auto) Baso % (Auto) Neut # (Auto) Lymph # (Auto) [place] # (Auto) Eos # (Auto) Baso # (Auto) Sodium Potassium Chloride Carbon Dioxide Anion Gap BUN Creatinine Est GFR ( Amer) Est GFR (Non-Af Amer) POC Glucose (mg/dL) 172 H 171 H Random Glucose Calcium Phosphorus Magnesium Total Bilirubin AST ALT Alkaline Phosphatase Total Protein Albumin Globulin Albumin/Globulin Ratio Ur Opiates (GC/MS) Ur Methadone, Qual Urine Propoxyphene Methaqualone Ur Barbiturates, Qual Ur Phencyclidine (PCP) Ur Amphetamines Screen U Benzodiazepines Qual Urine Cocaine U Marijuana (THC) Screen Drugs of Abuse Note Blood Type Antibody Screen 02/23/18 02/23/18 02/23/18 05:10 05:10 05:43 WBC 5.2 RBC 2.72 L Hgb 8.2 L Hct 23.8 L MCV 87.5 MCH 30.1 MCHC 34.4 RDW 19.1 H Plt Count 125 L MPV 8.6 Neut % (Auto) 64.4 Lymph % (Auto) 20.6 [place] % (Auto) 7.9 Eos % (Auto) 5.9 H Baso % (Auto) 1.2 Neut # (Auto) 3.4 Lymph # (Auto) 1.1 [place] # (Auto) 0.4 Eos # (Auto) 0.3 Baso # (Auto) 0.1 Sodium 146 Potassium 3.8 Chloride 112 H Carbon Dioxide 26 Anion Gap 12 BUN 52 H Creatinine 2.1 H Est GFR ( Amer) 37 Est GFR (Non-Af Amer) 31 POC Glucose (mg/dL) 168 H Random Glucose 166 H Calcium 8.6 Phosphorus 2.9 Magnesium 1.9 Total Bilirubin 1.3 AST 21 ALT 18 L D Alkaline Phosphatase 80 Total Protein 5.7 L Albumin 2.9 L Globulin 2.8 Albumin/Globulin Ratio 1.0 Ur Opiates (GC/MS) Ur Methadone, Qual Urine Propoxyphene Methaqualone Ur Barbiturates, Qual Ur Phencyclidine (PCP) Ur Amphetamines Screen U Benzodiazepines Qual Urine Cocaine U Marijuana (THC) Screen Drugs of Abuse Note Blood Type Antibody Screen Radiology Impressions: Radiology Impressions GI Bleed Scan Nuclear Medicine 02/22/18 10:53 IMPRESSION: No evidence of active gastrointestinal bleeding. Fingerstick Blood Sugar Results: 182 Review of Systems - Review of Systems Systems not reviewed;Unavailable: Altered Mental Status Assessment/Plan - Assessment and Plan (Free Text) Assessment: Patient is a 77 yo male w/ PMH of HTN, CAD, DM2, Hypothyroidism, HLD, Afib on warfarin admitted for multiple episodes of bright blood per rectum. INR was noted to be elevated. On labs patient was noted to be anemic. Neuro AMS- likely patient baseline from [facility] Pulm No acute issues; maintain o2 sat >90% CV Cardizem drip for tachycardia- not rate controlled GI Endoscopy showed clean based ulcers Patient prepped for colonoscopy- colonoscopy in late afternoon Bleeding scan no active bleed IV protonix Heme Hgb trended up after 5 units of pRBCs; Repeat INR and CBC pending 2 units of FFP given total; Endo Novolog q6h waldemar- Hx of DM2 Renal Likely baseline cr 2.0 Chronic paulson for enlarged prostate; U/A- 3+ L.E; 2698 WBCs; Bladder ultrasound pending Mag, K repleted; Repeat CMP in AM NS @ 50mls/hr MSK Chronic back pain- morphine 2mg IVP q6 prn ID Meropenem; + urine cx for ESBL DVT ppx: Not indicated at this time GI ppx: Protonix IV Madaser Kevin PGY-1 Medical Management d/w Dr. Becerra <Justice Becerra M - Last Filed: 02/23/18 18:25> CCU Objective - Vital Signs / Intake & Output Vital Signs (Last 4 hours): Vital Signs Temp Pulse Resp BP Pulse Ox 02/23/18 18:00 101 H 15 100 02/23/18 17:45 114 H 11 L 98/68 L 100 02/23/18 17:30 104 H 14 100 02/23/18 17:15 105 H 15 103/61 100 02/23/18 17:00 98.4 F 110 H 12 100 02/23/18 16:45 98.4 F 121 H 21 146/79 99 02/23/18 16:30 127 H 20 100 02/23/18 16:14 122 H 19 141/74 100 02/23/18 16:00 98.4 F 128 H 22 93 L 02/23/18 15:58 120 H 20 156/90 H 91 L 02/23/18 15:45 98.3 F 97 02/23/18 15:43 120 H 27 H 154/87 H 97 02/23/18 15:30 98.3 F 132 H 24 97 02/23/18 15:29 134 H 20 150/99 H 98 02/23/18 15:15 98.4 F 98 02/23/18 15:14 114 H 16 102/78 02/23/18 15:00 98.5 F 109 H 22 95 02/23/18 14:59 106 H 18 116/76 94 L 02/23/18 14:57 100 H Intake and Output (Last 8hrs): Intake & Output 02/23/18 02/23/18 02/23/18 06:59 14:59 22:59 Intake Total 850 2650 440 Output Total 1050 845 150 Balance -200 1805 290 Weight 202 lb Intake: IV 205 Intake, IV Amount 150 445 340 Left Forearm 50 Midline side port 100 Right Antecubital 45 10 Right Forearm 100 200 0 Right arm midline 200 230 Oral 0 100 Tube Feeding 2000 Blood Product 700 Red Blood Cells Cpd As1 325 Lr Unit [id number] Output: Urine 1050 845 150 Urethral (Paulson) 1050 845 150 Emesis 0 Other: # Bowel Movements 1 0 0 - Medications Active Medications: Active Medications Generic Name Dose Route Start Last Admin Trade Name Freq PRN Reason Stop Dose Admin Diltiazem HCl 125 mg/ Sodium 125 mls @ 5 mls/hr 02/23/18 09:00 02/23/18 09:25 Chloride IV 10 mg/hr .Q24H WALDEMAR 10 mls/hr Titration Protocol 5 MG/HR Meropenem 500 mg/ Sodium 100 mls @ 100 mls/hr 02/23/18 09:30 02/23/18 16:45 Chloride IVPB 100 mls/hr Q8H WALDEMAR Administration Protocol Sodium Chloride 1,000 mls @ 50 mls/hr 02/23/18 09:45 02/23/18 10:02 Sodium Chloride 0.9% IV 50 mls/hr .Q20H WALDEMAR Administration Insulin Aspart 0 unit 02/22/18 12:00 02/23/18 17:52 Novolog SC 1 u Q6H WALDEMAR Administration Protocol Morphine Sulfate 2 mg 02/22/18 23:02 02/23/18 10:00 Morphine IVP 2 mg Q6 PRN Administration for c/o back/lower Pantoprazole Sodium 40 mg 02/22/18 22:00 02/23/18 09:19 Protonix Inj IVP 40 mg Q12 WALDEMAR Administration - Patient Studies Lab Studies: Microbiology Studies 02/21/18 17:46 Urine Culture - Final Urine Escherichia Coli 02/21/18 21:45 Urine Culture - Final Urine,Paulson Escherichia Coli 02/21/18 22:46 Blood Culture - Preliminary Blood-Venous NO GROWTH AFTER 24 HOURS 02/21/18 19:10 Blood Culture - Preliminary Blood-Venous NO GROWTH AFTER 24 HOURS 02/21/18 22:06 MRSA Culture (Admit) - Final Nose MRSA NOT DETECTED Lab Studies 02/23/18 02/23/18 02/23/18 Range/Units 12:05 12:05 12:05 WBC 4.9 (4.8-10.8) K/uL RBC 2.73 L (4.40-5.90) Mil/uL Hgb 8.2 L (12.0-18.0) g/dL Hct 24.3 L (35.0-51.0) % MCV 89.0 (80.0-94.0) fL MCH 29.9 (27.0-31.0) pg MCHC 33.7 (33.0-37.0) g/dL RDW 18.9 H (11.5-14.5) % Plt Count 130 (130-400) K/uL MPV 8.8 (7.2-11.7) fL Neut % (Auto) 69.8 (50.0-75.0) % Lymph % (Auto) 17.2 L (20.0-40.0) % [place] % (Auto) 7.4 (0.0-10.0) % Eos % (Auto) 4.4 H (0.0-4.0) % Baso % (Auto) 1.2 (0.0-2.0) % Neut # (Auto) 3.4 (1.8-7.0) K/uL Lymph # (Auto) 0.8 L (1.0-4.3) K/uL [place] # (Auto) 0.4 (0.0-0.8) K/uL Eos # (Auto) 0.2 (0.0-0.7) K/uL Baso # (Auto) 0.1 (0.0-0.2) K/uL PT 13.7 H D (9.7-12.2) SECONDS INR 1.3 D APTT 30 (21-34) SECONDS Sodium 145 (132-148) mmol/L Potassium 3.8 (3.6-5.2) mmol/L Chloride 108 H (98-107) mmol/L Carbon Dioxide 27 (22-30) mmol/L Anion Gap 14 (10-20) BUN 44 H (9-20) mg/dL Creatinine 2.0 H (0.8-1.5) mg/dL Est GFR ( Amer) 39 Est GFR (Non-Af Amer) 33 POC Glucose (mg/dL) (65-110) mg/dL Random Glucose 177 H (75-110) mg/dL Calcium 8.6 (8.6-10.4) mg/dl Phosphorus 2.6 (2.5-4.5) mg/dL Magnesium 2.1 (1.6-2.3) mg/dL Total Bilirubin 1.2 (0.2-1.3) mg/dL AST 21 (17-59) U/L ALT 21 (21-72) U/L Alkaline Phosphatase 81 (38-126) U/L Total Protein 5.8 L (6.3-8.3) g/dL Albumin 2.8 L (3.5-5.0) g/dL Globulin 2.9 (2.2-3.9) gm/dL Albumin/Globulin Ratio 1.0 (1.0-2.1) Ur Opiates (GC/MS) (Negative) 300 Ur Methadone, Qual (Negative) 300 Urine Propoxyphene (Negative) 300 Methaqualone (Negative) 300 Ur Barbiturates, Qual (Negative) 300 Ur Phencyclidine (PCP) (Negative) 25 Ur Amphetamines Screen (Negative) 1000 U Benzodiazepines Qual (Negative) 300 Urine Cocaine (Negative) 300 U Marijuana (THC) Screen (Negative) 50 Drugs of Abuse Note Blood Type Antibody Screen 02/23/18 02/23/18 02/23/18 Range/Units 11:27 05:43 05:10 WBC (4.8-10.8) K/uL RBC (4.40-5.90) Mil/uL Hgb (12.0-18.0) g/dL Hct (35.0-51.0) % MCV (80.0-94.0) fL MCH (27.0-31.0) pg MCHC (33.0-37.0) g/dL RDW (11.5-14.5) % Plt Count (130-400) K/uL MPV (7.2-11.7) fL Neut % (Auto) (50.0-75.0) % Lymph % (Auto) (20.0-40.0) % [place] % (Auto) (0.0-10.0) % Eos % (Auto) (0.0-4.0) % Baso % (Auto) (0.0-2.0) % Neut # (Auto) (1.8-7.0) K/uL Lymph # (Auto) (1.0-4.3) K/uL [place] # (Auto) (0.0-0.8) K/uL Eos # (Auto) (0.0-0.7) K/uL Baso # (Auto) (0.0-0.2) K/uL PT (9.7-12.2) SECONDS INR APTT (21-34) SECONDS Sodium 146 (132-148) mmol/L Potassium 3.8 (3.6-5.2) mmol/L Chloride 112 H (98-107) mmol/L Carbon Dioxide 26 (22-30) mmol/L Anion Gap 12 (10-20) BUN 52 H (9-20) mg/dL Creatinine 2.1 H (0.8-1.5) mg/dL Est GFR ( Amer) 37 Est GFR (Non-Af Amer) 31 POC Glucose (mg/dL) 182 H 168 H (65-110) mg/dL Random Glucose 166 H (75-110) mg/dL Calcium 8.6 (8.6-10.4) mg/dl Phosphorus 2.9 (2.5-4.5) mg/dL Magnesium 1.9 (1.6-2.3) mg/dL Total Bilirubin 1.3 (0.2-1.3) mg/dL AST 21 (17-59) U/L ALT 18 L D (21-72) U/L Alkaline Phosphatase 80 (38-126) U/L Total Protein 5.7 L (6.3-8.3) g/dL Albumin 2.9 L (3.5-5.0) g/dL Globulin 2.8 (2.2-3.9) gm/dL Albumin/Globulin Ratio 1.0 (1.0-2.1) Ur Opiates (GC/MS) (Negative) 300 Ur Methadone, Qual (Negative) 300 Urine Propoxyphene (Negative) 300 Methaqualone (Negative) 300 Ur Barbiturates, Qual (Negative) 300 Ur Phencyclidine (PCP) (Negative) 25 Ur Amphetamines Screen (Negative) 1000 U Benzodiazepines Qual (Negative) 300 Urine Cocaine (Negative) 300 U Marijuana (THC) Screen (Negative) 50 Drugs of Abuse Note Blood Type Antibody Screen 02/23/18 02/23/18 02/22/18 Range/Units 05:10 00:12 18:54 WBC 5.2 (4.8-10.8) K/uL RBC 2.72 L (4.40-5.90) Mil/uL Hgb 8.2 L (12.0-18.0) g/dL Hct 23.8 L (35.0-51.0) % MCV 87.5 (80.0-94.0) fL MCH 30.1 (27.0-31.0) pg MCHC 34.4 (33.0-37.0) g/dL RDW 19.1 H (11.5-14.5) % Plt Count 125 L (130-400) K/uL MPV 8.6 (7.2-11.7) fL Neut % (Auto) 64.4 (50.0-75.0) % Lymph % (Auto) 20.6 (20.0-40.0) % [place] % (Auto) 7.9 (0.0-10.0) % Eos % (Auto) 5.9 H (0.0-4.0) % Baso % (Auto) 1.2 (0.0-2.0) % Neut # (Auto) 3.4 (1.8-7.0) K/uL Lymph # (Auto) 1.1 (1.0-4.3) K/uL [place] # (Auto) 0.4 (0.0-0.8) K/uL Eos # (Auto) 0.3 (0.0-0.7) K/uL Baso # (Auto) 0.1 (0.0-0.2) K/uL PT (9.7-12.2) SECONDS INR APTT (21-34) SECONDS Sodium (132-148) mmol/L Potassium (3.6-5.2) mmol/L Chloride (98-107) mmol/L Carbon Dioxide (22-30) mmol/L Anion Gap (10-20) BUN (9-20) mg/dL Creatinine (0.8-1.5) mg/dL Est GFR ( Amer) Est GFR (Non-Af Amer) POC Glucose (mg/dL) 171 H 172 H (65-110) mg/dL Random Glucose (75-110) mg/dL Calcium (8.6-10.4) mg/dl Phosphorus (2.5-4.5) mg/dL Magnesium (1.6-2.3) mg/dL Total Bilirubin (0.2-1.3) mg/dL AST (17-59) U/L ALT (21-72) U/L Alkaline Phosphatase (38-126) U/L Total Protein (6.3-8.3) g/dL Albumin (3.5-5.0) g/dL Globulin (2.2-3.9) gm/dL Albumin/Globulin Ratio (1.0-2.1) Ur Opiates (GC/MS) (Negative) 300 Ur Methadone, Qual (Negative) 300 Urine Propoxyphene (Negative) 300 Methaqualone (Negative) 300 Ur Barbiturates, Qual (Negative) 300 Ur Phencyclidine (PCP) (Negative) 25 Ur Amphetamines Screen (Negative) 1000 U Benzodiazepines Qual (Negative) 300 Urine Cocaine (Negative) 300 U Marijuana (THC) Screen (Negative) 50 Drugs of Abuse Note Blood Type Antibody Screen 02/22/18 02/21/18 02/21/18 Range/Units 18:43 21:45 17:40 WBC 6.2 (4.8-10.8) K/uL RBC 2.67 L (4.40-5.90) Mil/uL Hgb 7.8 L (12.0-18.0) g/dL Hct 23.4 L (35.0-51.0) % MCV 87.9 D (80.0-94.0) fL MCH 29.1 (27.0-31.0) pg MCHC 33.1 (33.0-37.0) g/dL RDW 19.3 H (11.5-14.5) % Plt Count 132 (130-400) K/uL MPV 9.1 (7.2-11.7) fL Neut % (Auto) (50.0-75.0) % Lymph % (Auto) (20.0-40.0) % [place] % (Auto) (0.0-10.0) % Eos % (Auto) (0.0-4.0) % Baso % (Auto) (0.0-2.0) % Neut # (Auto) (1.8-7.0) K/uL Lymph # (Auto) (1.0-4.3) K/uL [place] # (Auto) (0.0-0.8) K/uL Eos # (Auto) (0.0-0.7) K/uL Baso # (Auto) (0.0-0.2) K/uL PT (9.7-12.2) SECONDS INR APTT (21-34) SECONDS Sodium (132-148) mmol/L Potassium (3.6-5.2) mmol/L Chloride (98-107) mmol/L Carbon Dioxide (22-30) mmol/L Anion Gap (10-20) BUN (9-20) mg/dL Creatinine (0.8-1.5) mg/dL Est GFR ( Amer) Est GFR (Non-Af Amer) POC Glucose (mg/dL) (65-110) mg/dL Random Glucose (75-110) mg/dL Calcium (8.6-10.4) mg/dl Phosphorus (2.5-4.5) mg/dL Magnesium (1.6-2.3) mg/dL Total Bilirubin (0.2-1.3) mg/dL AST (17-59) U/L ALT (21-72) U/L Alkaline Phosphatase (38-126) U/L Total Protein (6.3-8.3) g/dL Albumin (3.5-5.0) g/dL Globulin (2.2-3.9) gm/dL Albumin/Globulin Ratio (1.0-2.1) Ur Opiates (GC/MS) Negative (Negative) 300 Ur Methadone, Qual Negative (Negative) 300 Urine Propoxyphene Negative (Negative) 300 Methaqualone Negative (Negative) 300 Ur Barbiturates, Qual Negative (Negative) 300 Ur Phencyclidine (PCP) Negative (Negative) 25 Ur Amphetamines Screen Negative (Negative) 1000 U Benzodiazepines Qual Negative (Negative) 300 Urine Cocaine Negative (Negative) 300 U Marijuana (THC) Screen Negative (Negative) 50 Drugs of Abuse Note See note Blood Type A POSITIVE Antibody Screen Negative Laboratory Results - last 24 hr 02/21/18 02/21/18 02/22/18 17:40 21:45 18:43 WBC 6.2 RBC 2.67 L Hgb 7.8 L Hct 23.4 L MCV 87.9 D MCH 29.1 MCHC 33.1 RDW 19.3 H Plt Count 132 MPV 9.1 Neut % (Auto) Lymph % (Auto) [place] % (Auto) Eos % (Auto) Baso % (Auto) Neut # (Auto) Lymph # (Auto) [place] # (Auto) Eos # (Auto) Baso # (Auto) PT INR APTT Sodium Potassium Chloride Carbon Dioxide Anion Gap BUN Creatinine Est GFR ( Amer) Est GFR (Non-Af Amer) POC Glucose (mg/dL) Random Glucose Calcium Phosphorus Magnesium Total Bilirubin AST ALT Alkaline Phosphatase Total Protein Albumin Globulin Albumin/Globulin Ratio Ur Opiates (GC/MS) Negative Ur Methadone, Qual Negative Urine Propoxyphene Negative Methaqualone Negative Ur Barbiturates, Qual Negative Ur Phencyclidine (PCP) Negative Ur Amphetamines Screen Negative U Benzodiazepines Qual Negative Urine Cocaine Negative U Marijuana (THC) Screen Negative Drugs of Abuse Note See note Blood Type A POSITIVE Antibody Screen Negative 02/22/18 02/23/18 02/23/18 18:54 00:12 05:10 WBC 5.2 RBC 2.72 L Hgb 8.2 L Hct 23.8 L MCV 87.5 MCH 30.1 MCHC 34.4 RDW 19.1 H Plt Count 125 L MPV 8.6 Neut % (Auto) 64.4 Lymph % (Auto) 20.6 [place] % (Auto) 7.9 Eos % (Auto) 5.9 H Baso % (Auto) 1.2 Neut # (Auto) 3.4 Lymph # (Auto) 1.1 [place] # (Auto) 0.4 Eos # (Auto) 0.3 Baso # (Auto) 0.1 PT INR APTT Sodium Potassium Chloride Carbon Dioxide Anion Gap BUN Creatinine Est GFR ( Amer) Est GFR (Non-Af Amer) POC Glucose (mg/dL) 172 H 171 H Random Glucose Calcium Phosphorus Magnesium Total Bilirubin AST ALT Alkaline Phosphatase Total Protein Albumin Globulin Albumin/Globulin Ratio Ur Opiates (GC/MS) Ur Methadone, Qual Urine Propoxyphene Methaqualone Ur Barbiturates, Qual Ur Phencyclidine (PCP) Ur Amphetamines Screen U Benzodiazepines Qual Urine Cocaine U Marijuana (THC) Screen Drugs of Abuse Note Blood Type Antibody Screen 02/23/18 02/23/18 02/23/18 05:10 05:43 11:27 WBC RBC Hgb Hct MCV MCH MCHC RDW Plt Count MPV Neut % (Auto) Lymph % (Auto) [place] % (Auto) Eos % (Auto) Baso % (Auto) Neut # (Auto) Lymph # (Auto) [place] # (Auto) Eos # (Auto) Baso # (Auto) PT INR APTT Sodium 146 Potassium 3.8 Chloride 112 H Carbon Dioxide 26 Anion Gap 12 BUN 52 H Creatinine 2.1 H Est GFR ( Amer) 37 Est GFR (Non-Af Amer) 31 POC Glucose (mg/dL) 168 H 182 H Random Glucose 166 H Calcium 8.6 Phosphorus 2.9 Magnesium 1.9 Total Bilirubin 1.3 AST 21 ALT 18 L D Alkaline Phosphatase 80 Total Protein 5.7 L Albumin 2.9 L Globulin 2.8 Albumin/Globulin Ratio 1.0 Ur Opiates (GC/MS) Ur Methadone, Qual Urine Propoxyphene Methaqualone Ur Barbiturates, Qual Ur Phencyclidine (PCP) Ur Amphetamines Screen U Benzodiazepines Qual Urine Cocaine U Marijuana (THC) Screen Drugs of Abuse Note Blood Type Antibody Screen 02/23/18 02/23/18 02/23/18 12:05 12:05 12:05 WBC 4.9 RBC 2.73 L Hgb 8.2 L Hct 24.3 L MCV 89.0 MCH 29.9 MCHC 33.7 RDW 18.9 H Plt Count 130 MPV 8.8 Neut % (Auto) 69.8 Lymph % (Auto) 17.2 L [place] % (Auto) 7.4 Eos % (Auto) 4.4 H Baso % (Auto) 1.2 Neut # (Auto) 3.4 Lymph # (Auto) 0.8 L [place] # (Auto) 0.4 Eos # (Auto) 0.2 Baso # (Auto) 0.1 PT 13.7 H D INR 1.3 D APTT 30 Sodium 145 Potassium 3.8 Chloride 108 H Carbon Dioxide 27 Anion Gap 14 BUN 44 H Creatinine 2.0 H Est GFR ( Amer) 39 Est GFR (Non-Af Amer) 33 POC Glucose (mg/dL) Random Glucose 177 H Calcium 8.6 Phosphorus 2.6 Magnesium 2.1 Total Bilirubin 1.2 AST 21 ALT 21 Alkaline Phosphatase 81 Total Protein 5.8 L Albumin 2.8 L Globulin 2.9 Albumin/Globulin Ratio 1.0 Ur Opiates (GC/MS) Ur Methadone, Qual Urine Propoxyphene Methaqualone Ur Barbiturates, Qual Ur Phencyclidine (PCP) Ur Amphetamines Screen U Benzodiazepines Qual Urine Cocaine U Marijuana (THC) Screen Drugs of Abuse Note Blood Type Antibody Screen Radiology Impressions: Radiology Impressions GI Bleed Scan Nuclear Medicine 02/22/18 10:53 IMPRESSION: No evidence of active gastrointestinal bleeding. Pelvis Ultrasound 02/23/18 12:05 IMPRESSION: Paulson catheter balloon within bladder lumen. Bladder nondistended. Enlarged prostate. Critical Care Progress Note - Nutrition Nutrition: Nutrition Category Date Time Status Liquid Diet [DIET] Diets 02/23/18 Lunch Active Attending/Attestation - Attestation I have personally seen and examined this patient.: Yes I have fully participated in the care of the patient.: Yes I have reviewed all pertinent clinical information: Yes Notes (Text): 02/23/18 18:17 Today: January The Patient was seen and examined at the bedside, Medical records reviewed, and management issues were discussed and formulated with the house staff. I have reviewed all the relevant clinical, laboratory, hemodynamic, radiographic data and medications Events reviewed Pain issues, skin care, head of the bed elevation, glycemic control were addressed. Agree with above resident's assessment and treatment plans of care as transcribed in Dr. Brown's note. Continue with ICU sec to hemodynamic instability ( hypotension, tachycardia) A-Fib with RVR, started on Cardiazem drip Two large bore peripheral catheters Suplemental O2 NPO Volume resuscitation PANTOPRAZOLE Serial CBCs q 8 /HR, S/P 5U RBC and 2FFP RBC transfusions GI and surgery evaluation appreciated, for colonscopy today CT angio of abdomen and pelvis to r/o Mesenteric ischemia DVT PPx: SCD Full code Total critical care time 46 minutes
[2018-02-23 12:20] LABS: BASO # 0.1 K/uL (0.0-0.2); BASO % 1.2 % (0.0-2.0); EOS # 0.2 K/uL (0.0-0.7); EOS % 4.4 % (0.0-4.0); HEMOGLOBIN 8.2 g/dL (12.0-18.0); LYMPH # 0.8 K/uL (1.0-4.3); LYMPH % 17.2 % (20.0-40.0); MEAN CORPUSCULAR HEMOGLOBIN 29.9 pg (27.0-31.0); MEAN CORPUSCULAR HGB CONC 33.7 g/dL (33.0-37.0); MEAN PLATELET VOLUME 8.8 fL (7.2-11.7); MONO # 0.4 K/uL (0.0-0.8); MONO % 7.4 % (0.0-10.0); NEUT # 3.4 K/uL (1.8-7.0); NEUT % 69.8 % (50.0-75.0); RBC 2.73 Mil/uL (4.40-5.90); RED CELL DISTRIBUTION WIDTH 18.9 % (11.5-14.5); WHITE BLOOD COUNT 4.9 K/uL (4.8-10.8)
[2018-02-23 12:25] LABS: INR 1.3; PROTHROMBIN TIME 13.7 SECONDS (9.7-12.2)
[2018-02-23 12:27] LABS: ALBUMIN 2.8 g/dL (3.5-5.0); CALCIUM 8.6 mg/dl (8.6-10.4)
--- NOTE | 2018-02-23 13:45 | US ---
Date of service: 2018-02-23 12:42:14 PROCEDURE: Ultrasound pelvis HISTORY: paulson in wrong site COMPARISON: Not available TECHNIQUE: Transabdominal FINDINGS: The urinary bladder is nondistended. A Paulson catheter balloon is seen within the bladder lumen. The bladder cannot be evaluated on the basis of this examination due to lack of distension. The prostate measures 159 cc volume. This is enlarged. IMPRESSION: Paulson catheter balloon within bladder lumen. Bladder nondistended. Enlarged prostate.
--- NOTE | 2018-02-23 13:57 | CP.PCM.CON ---
History of Present Illness - History of Present Illness History of Present Illness: General Surgery Consult Re: GI bleed HPI: Patient is demented and non-communicative, information taken from EHR. This 77M presented to ED with Hgb 5.7 and Afib tachycardia with hypotension Pt takes warfarin and his INR was elevated. Per ED , pt had bright red blood from rectum. EGD was done and 2 nonbleeding duodenal ulcers were seen. Currently pt is in the ICU. GI is planning colonoscopy later today. Afib was still not quite controlled with cardizem gtt. As of 9AM, pt has had 5 units of blood and 2 FFP since the . PMH: AFib on warfarin, HTN, CAD, DM, Hypothyroidism, and HLD PSH: Coronary stent SH (previous admission): Denies tobacco use, alcohol use, and illicit drug use. lives with at home FH: Unable to obtain All: NKDA Med: See MAR Review of Systems - Review of Systems Systems not reviewed;Unavailable: Dementia Past Patient History - Infectious Disease Hx of Infectious Diseases: None - Tetanus Immunizations Tetanus Immunization: Unknown - Past Medical History & Family History Past Medical History?: Yes - Past Social History Smoking Status: Never Smoked - CARDIAC Hx Pacemaker: No - PULMONARY Hx Chronic Obstructive Pulmonary Disease (COPD): No - NEUROLOGICAL Hx Neurological Disorder: No - HEENT Hx HEENT Problems: No - RENAL Hx Chronic Kidney Disease: No - ENDOCRINE/METABOLIC Hx Hypothyroidism: No - HEMATOLOGICAL/ONCOLOGICAL Hx Cancer: No - INTEGUMENTARY Hx Dermatological Problems: No - MUSCULOSKELETAL/RHEUMATOLOGICAL Hx Arthritis: No Hx Falls: Yes Hx Rheumatoid Arthritis: No - GASTROINTESTINAL Hx Gastrointestinal Disorders: No - GENITOURINARY/GYNECOLOGICAL Hx Genitourinary Disorders: No - PSYCHIATRIC Hx Substance Use: No - SURGICAL HISTORY Hx Mastectomy: No - ANESTHESIA Hx Anesthesia: Yes Hx Anesthesia Reactions: No Hx Malignant Hyperthermia: No Meds Allergies/Adverse Reactions: Allergies Allergy/AdvReac Type Severity Reaction Status Date / Time No Known Allergies Allergy Verified 02/21/18 17:15 - Medications Medications: Current Medications Diltiazem HCl 125 mg/ Sodium (Chloride) 125 mls @ 5 mls/hr IV .Q24H [facility]; Protocol Last Titration: 02/23/18 09:25 Dose: 10 mg/hr, 10 mls/hr Meropenem 500 mg/ Sodium (Chloride) 100 mls @ 100 mls/hr IVPB Q8H [facility]; Protocol Last Admin: 02/23/18 10:15 Dose: 100 mls/hr Sodium Chloride (Sodium Chloride 0.9%) 1,000 mls @ 50 mls/hr IV .Q20H [facility] Last Admin: 02/23/18 10:02 Dose: 50 mls/hr Insulin Aspart (Novolog) 0 unit SC Q6H [facility]; Protocol Last Admin: 02/23/18 12:10 Dose: Not Given Morphine Sulfate (Morphine) 2 mg IVP Q6 PRN PRN Reason: for c/o back/lower Last Admin: 02/23/18 10:00 Dose: 2 mg Pantoprazole Sodium (Protonix Inj) 40 mg IVP Q12 [facility] Last Admin: 02/23/18 09:19 Dose: 40 mg Physical Exam - Constitutional Appears: Non-toxic, Chronically Ill - Head Exam Head Exam: ATRAUMATIC, NORMOCEPHALIC - Eye Exam Eye Exam: absent: Scleral icterus - ENT Exam ENT Exam: Mucous Membranes Dry Additional comments: trachea midline - Respiratory Exam Respiratory Exam: NORMAL BREATHING PATTERN. absent: Accessory Muscle Use, Respiratory Distress - Cardiovascular Exam Cardiovascular Exam: Tachycardia, +S1, +S2 - GI/Abdominal Exam GI & Abdominal Exam: Soft. absent: Distended, Tenderness - Rectal Exam Rectal Exam: Deferred - Extremities Exam Extremities exam: Negative for: calf tenderness, pedal edema - Back Exam Back exam: absent: CVA tenderness (L), CVA tenderness (R) - Skin Skin Exam: Dry, Warm Results - Vital Signs Recent Vital Signs: Last Vital Signs Temp 98.1 F 02/23/18 12:00 Pulse 121 H 02/23/18 13:30 Resp 21 02/23/18 13:30 BP 148/100 H 02/23/18 13:22 Pulse Ox 100 02/23/18 13:30 - Labs Result Diagrams: 02/23/18 12:05 02/23/18 12:05 Labs: Laboratory Results - last 24 hr 02/21/18 02/21/18 02/22/18 17:40 21:45 11:58 WBC RBC Hgb Hct MCV MCH MCHC RDW Plt Count MPV Neut % (Auto) Lymph % (Auto) [place] % (Auto) Eos % (Auto) Baso % (Auto) Neut # (Auto) Lymph # (Auto) [place] # (Auto) Eos # (Auto) Baso # (Auto) PT INR APTT Sodium Potassium Chloride Carbon Dioxide Anion Gap BUN Creatinine Est GFR ( Amer) Est GFR (Non-Af Amer) POC Glucose (mg/dL) 170 H Random Glucose Calcium Phosphorus Magnesium Total Bilirubin AST ALT Alkaline Phosphatase Total Protein Albumin Globulin Albumin/Globulin Ratio Ur Opiates (GC/MS) Negative Ur Methadone, Qual Negative Urine Propoxyphene Negative Methaqualone Negative Ur Barbiturates, Qual Negative Ur Phencyclidine (PCP) Negative Ur Amphetamines Screen Negative U Benzodiazepines Qual Negative Urine Cocaine Negative U Marijuana (THC) Screen Negative Drugs of Abuse Note See note Blood Type A POSITIVE Antibody Screen Negative 02/22/18 02/22/18 02/23/18 18:43 18:54 00:12 WBC 6.2 RBC 2.67 L Hgb 7.8 L Hct 23.4 L MCV 87.9 D MCH 29.1 MCHC 33.1 RDW 19.3 H Plt Count 132 MPV 9.1 Neut % (Auto) Lymph % (Auto) [place] % (Auto) Eos % (Auto) Baso % (Auto) Neut # (Auto) Lymph # (Auto) [place] # (Auto) Eos # (Auto) Baso # (Auto) PT INR APTT Sodium Potassium Chloride Carbon Dioxide Anion Gap BUN Creatinine Est GFR ( Amer) Est GFR (Non-Af Amer) POC Glucose (mg/dL) 172 H 171 H Random Glucose Calcium Phosphorus Magnesium Total Bilirubin AST ALT Alkaline Phosphatase Total Protein Albumin Globulin Albumin/Globulin Ratio Ur Opiates (GC/MS) Ur Methadone, Qual Urine Propoxyphene Methaqualone Ur Barbiturates, Qual Ur Phencyclidine (PCP) Ur Amphetamines Screen U Benzodiazepines Qual Urine Cocaine U Marijuana (THC) Screen Drugs of Abuse Note Blood Type Antibody Screen 02/23/18 02/23/18 02/23/18 05:10 05:10 05:43 WBC 5.2 RBC 2.72 L Hgb 8.2 L Hct 23.8 L MCV 87.5 MCH 30.1 MCHC 34.4 RDW 19.1 H Plt Count 125 L MPV 8.6 Neut % (Auto) 64.4 Lymph % (Auto) 20.6 [place] % (Auto) 7.9 Eos % (Auto) 5.9 H Baso % (Auto) 1.2 Neut # (Auto) 3.4 Lymph # (Auto) 1.1 [place] # (Auto) 0.4 Eos # (Auto) 0.3 Baso # (Auto) 0.1 PT INR APTT Sodium 146 Potassium 3.8 Chloride 112 H Carbon Dioxide 26 Anion Gap 12 BUN 52 H Creatinine 2.1 H Est GFR ( Amer) 37 Est GFR (Non-Af Amer) 31 POC Glucose (mg/dL) 168 H Random Glucose 166 H Calcium 8.6 Phosphorus 2.9 Magnesium 1.9 Total Bilirubin 1.3 AST 21 ALT 18 L D Alkaline Phosphatase 80 Total Protein 5.7 L Albumin 2.9 L Globulin 2.8 Albumin/Globulin Ratio 1.0 Ur Opiates (GC/MS) Ur Methadone, Qual Urine Propoxyphene Methaqualone Ur Barbiturates, Qual Ur Phencyclidine (PCP) Ur Amphetamines Screen U Benzodiazepines Qual Urine Cocaine U Marijuana (THC) Screen Drugs of Abuse Note Blood Type Antibody Screen 02/23/18 02/23/18 02/23/18 12:05 12:05 12:05 WBC 4.9 RBC 2.73 L Hgb 8.2 L Hct 24.3 L MCV 89.0 MCH 29.9 MCHC 33.7 RDW 18.9 H Plt Count 130 MPV 8.8 Neut % (Auto) 69.8 Lymph % (Auto) 17.2 L [place] % (Auto) 7.4 Eos % (Auto) 4.4 H Baso % (Auto) 1.2 Neut # (Auto) 3.4 Lymph # (Auto) 0.8 L [place] # (Auto) 0.4 Eos # (Auto) 0.2 Baso # (Auto) 0.1 PT 13.7 H D INR 1.3 D APTT 30 Sodium 145 Potassium 3.8 Chloride 108 H Carbon Dioxide 27 Anion Gap 14 BUN 44 H Creatinine 2.0 H Est GFR ( Amer) 39 Est GFR (Non-Af Amer) 33 POC Glucose (mg/dL) Random Glucose 177 H Calcium 8.6 Phosphorus 2.6 Magnesium 2.1 Total Bilirubin 1.2 AST 21 ALT 21 Alkaline Phosphatase 81 Total Protein 5.8 L Albumin 2.8 L Globulin 2.9 Albumin/Globulin Ratio 1.0 Ur Opiates (GC/MS) Ur Methadone, Qual Urine Propoxyphene Methaqualone Ur Barbiturates, Qual Ur Phencyclidine (PCP) Ur Amphetamines Screen U Benzodiazepines Qual Urine Cocaine U Marijuana (THC) Screen Drugs of Abuse Note Blood Type Antibody Screen - Imaging and Cardiology Bleeding scan Status: Image reviewed by me, Report reviewed by me Assessment & Plan - Assessment and Plan (Free Text) Assessment: 77M with GI bleed Plan: Follow up colonoscopy EGD results reviewed. Monitor H&H, Blood products prn Will follow closely. D/W Dr. Julian Farley PGY4
[2018-02-23] MEDS ORDERED: Propofol 10 mg/ml Inj (20 ML) ONE (14:06)
[2018-02-23] MEDS ORDERED: Lidocaine Hydrochloride 5 ML INJ ONE (14:07)
--- NOTE | 2018-02-23 15:00 | CP.PCM.PN ---
Subjective - Date & Time of Evaluation Date of Evaluation: 02/23/18 Time of Evaluation: 14:56 - Subjective Subjective: Patient seen and examined, no acute events overnight. No reported recurrent rectal bleeding. s/p NGT insertion and bowel preparation administration. s/p colonoscopy today showing multiple colon polyps, sigmoid diverticulosis, no acti ve bleeding. Objective - Vital Signs/Intake and Output Vital Signs (last 24 hours): Temp Pulse Resp BP Pulse Ox 98.1 F 121 H 21 148/100 H 100 02/23/18 12:00 02/23/18 13:30 02/23/18 13:30 02/23/18 13:22 02/23/18 13:30 Intake and Output: 02/23/18 02/23/18 06:59 18:59 Intake Total 1100 2450 Output Total 1600 845 Balance -500 1605 - Medications Medications: Current Medications Diltiazem HCl 125 mg/ Sodium (Chloride) 125 mls @ 5 mls/hr IV .Q24H [facility]; Protocol Last Titration: 02/23/18 09:25 Dose: 10 mg/hr, 10 mls/hr Meropenem 500 mg/ Sodium (Chloride) 100 mls @ 100 mls/hr IVPB Q8H [facility]; Protocol Last Admin: 02/23/18 10:15 Dose: 100 mls/hr Sodium Chloride (Sodium Chloride 0.9%) 1,000 mls @ 50 mls/hr IV .Q20H [facility] Last Admin: 02/23/18 10:02 Dose: 50 mls/hr Insulin Aspart (Novolog) 0 unit SC Q6H [facility]; Protocol Last Admin: 02/23/18 12:10 Dose: Not Given Morphine Sulfate (Morphine) 2 mg IVP Q6 PRN PRN Reason: for c/o back/lower Last Admin: 02/23/18 10:00 Dose: 2 mg Pantoprazole Sodium (Protonix Inj) 40 mg IVP Q12 [facility] Last Admin: 02/23/18 09:19 Dose: 40 mg - Labs Labs: 02/23/18 12:05 02/23/18 12:05 PT 13.7 SECONDS (9.7-12.2) H D 02/23/18 12:05 INR 1.3 D 02/23/18 12:05 APTT 30 SECONDS (21-34) 02/23/18 12:05 Assessment and Plan - Assessment and Plan (Free Text) Assessment: Atrial fibrillation on coumadin Dementia CHF DM / HTN Rectal bleeding - s/p EGD and colonoscopy showing duodenal ulcers, sigmoid diverticulosis, multiple colon polyps, internal hemorrhoids Plan: - Advance diet as tolerated - Follow up biopsy results - Continue to monitor H/H - May resume coumadin tomorrow if deemed necessary by cardiology - Continue with PPI therapy - No further planned GI intervention, will sign off case. Please reconsult as necessary, thank you.
[2018-02-23 20:38] LABS: BASO % 1.2 % (0.0-2.0); EOS # 0.2 K/uL (0.0-0.7); EOS % 5.9 % (0.0-4.0); HEMOGLOBIN 7.5 g/dL (12.0-18.0); LYMPH # 0.7 K/uL (1.0-4.3); LYMPH % 18.3 % (20.0-40.0); MEAN CELL VOLUME 88.5 fL (80.0-94.0); MEAN CORPUSCULAR HEMOGLOBIN 29.3 pg (27.0-31.0); MEAN CORPUSCULAR HGB CONC 33.2 g/dL (33.0-37.0); MEAN PLATELET VOLUME 8.4 fL (7.2-11.7); MONO # 0.3 K/uL (0.0-0.8); MONO % 7.6 % (0.0-10.0); NEUT # 2.7 K/uL (1.8-7.0); RBC 2.56 Mil/uL (4.40-5.90); RED CELL DISTRIBUTION WIDTH 18.9 % (11.5-14.5); WHITE BLOOD COUNT 4.1 K/uL (4.8-10.8)
--- NOTE | 2018-02-23 23:00 | CP.PCM.CON ---
History of Present Illness - History of Present Illness History of Present Illness: Pt is a 77 yo WM with dementia (non-communicative), CAD s/p stenting (unknown when), Afib (on warfarin), HTN, HLD, DM, CHF, Hypothyroid [facility] in [facility] for bright red blood per rectum. In the ED, he was tachycardia, Hgb in 5s from previously 9s, elevated BUN CT without explaination for bleeding nor signs of liver cirrhosis, and maroon stools noted after admission to ICU. Cardio called for further evaluation. Unable to obtain ROS due to clinical condition MHx and SurgHx: See above Meds: Reviewed in chart FamHx: Unobtainable SocHx: Neg x3 All: NKDA Past Patient History - Infectious Disease Hx of Infectious Diseases: None - Tetanus Immunizations Tetanus Immunization: Unknown - Past Medical History & Family History Past Medical History?: Yes - Past Social History Smoking Status: Never Smoked - CARDIAC Hx Atrial Fibrillation: Yes Hx Congestive Heart Failure: Yes Hx Hypercholesterolemia: Yes Hx Hypertension: Yes - PULMONARY Hx Chronic Obstructive Pulmonary Disease (COPD): No - NEUROLOGICAL Hx Neurological Disorder: No - HEENT Hx HEENT Problems: No - RENAL Hx Chronic Kidney Disease: No - ENDOCRINE/METABOLIC Hx Hypothyroidism: No - HEMATOLOGICAL/ONCOLOGICAL Hx Anemia: Yes Hx Human Immunodeficiency Virus (HIV): No - INTEGUMENTARY Hx Dermatological Problems: No - MUSCULOSKELETAL/RHEUMATOLOGICAL Hx Arthritis: No Hx Falls: Yes Hx Rheumatoid Arthritis: No - GASTROINTESTINAL Hx Gastrointestinal Disorders: No - GENITOURINARY/GYNECOLOGICAL Hx Genitourinary Disorders: No - PSYCHIATRIC Hx Substance Use: No - SURGICAL HISTORY Hx Coronary Stent: Yes - ANESTHESIA Hx Anesthesia: Yes Hx Anesthesia Reactions: No Hx Malignant Hyperthermia: No Meds Allergies/Adverse Reactions: Allergies Allergy/AdvReac Type Severity Reaction Status Date / Time No Known Allergies Allergy Verified 02/21/18 17:15 - Medications Medications: Current Medications Pantoprazole Sodium 80 mg/ (Sodium Chloride) 100 mls @ 10 mls/hr IVP .Q10H RENA Last Admin: 02/22/18 05:15 Dose: Not Given Piperacillin Sod/Tazobactam Sod (Zosyn 2.25 Gm Iv Premix) 2.25 gm in 50 mls @ 100 mls/hr IVPB Q8H RENA; Protocol Stop: 02/26/18 20:46 Last Admin: 02/22/18 04:25 Dose: 100 mls/hr Insulin Aspart (Novolog) 0 unit SC Q6H RENA; Protocol Physical Exam - Constitutional Appears: In Acute Distress, Chronically Ill - Head Exam Head Exam: ATRAUMATIC, NORMAL INSPECTION - Eye Exam Eye Exam: EOMI. absent: Scleral icterus - ENT Exam ENT Exam: Mucous Membranes Dry. absent: Mucous Membranes Moist - Respiratory Exam Respiratory Exam: Accessory Muscle Use, Respiratory Distress (mild) - Cardiovascular Exam Cardiovascular Exam: Tachycardia, REGULAR RHYTHM - GI/Abdominal Exam GI & Abdominal Exam: Normal Bowel Sounds, Soft, Tenderness (in upper halves). absent: Bruit, Diminished Bowel Sounds, Distended, Firm, Guarding, Hernia, Orga nomegaly, Pulsatile Mass, Rebound, Rigid - Rectal Exam Additional comments: dark maroon stool visualized, no obv masses palpated - Extremities Exam Extremities exam: Positive for: normal inspection. Negative for: pedal edema - Psychiatric Exam Psychiatric exam: Agitated Additional comments: confused - Skin Skin Exam: Dry, Pallor Assessment & Plan - Assessment and Plan (Free Text) Assessment: 77 yo WM with Afib on warfarin, CHF, Dementia, CAD presenting from [facility] with bloody stools. S/P GI work up Can cleared for Coumadin use Restart coumadin form tomorrow Past Patient History - Infectious Disease Hx of Infectious Diseases: None - Tetanus Immunizations Tetanus Immunization: Unknown - Past Medical History & Family History Past Medical History?: Yes - Past Social History Smoking Status: Never Smoked - CARDIAC Hx Pacemaker: No - PULMONARY Hx Chronic Obstructive Pulmonary Disease (COPD): No - NEUROLOGICAL Hx Neurological Disorder: No - HEENT Hx HEENT Problems: No - RENAL Hx Chronic Kidney Disease: No - ENDOCRINE/METABOLIC Hx Hypothyroidism: No - HEMATOLOGICAL/ONCOLOGICAL Hx Cancer: No - INTEGUMENTARY Hx Dermatological Problems: No - MUSCULOSKELETAL/RHEUMATOLOGICAL Hx Arthritis: No Hx Falls: Yes Hx Rheumatoid Arthritis: No - GASTROINTESTINAL Hx Gastrointestinal Disorders: No - GENITOURINARY/GYNECOLOGICAL Hx Genitourinary Disorders: No - PSYCHIATRIC Hx Substance Use: No - SURGICAL HISTORY Hx Mastectomy: No - ANESTHESIA Hx Anesthesia: Yes Hx Anesthesia Reactions: No Hx Malignant Hyperthermia: No Meds Allergies/Adverse Reactions: Allergies Allergy/AdvReac Type Severity Reaction Status Date / Time No Known Allergies Allergy Verified 02/21/18 17:15 - Medications Medications: Current Medications Diltiazem HCl 125 mg/ Sodium (Chloride) 125 mls @ 5 mls/hr IV .Q24H RENA; Protocol Last Admin: 02/23/18 21:48 Dose: 10 mg/hr, 10 mls/hr Sodium Chloride (Sodium Chloride 0.9%) 1,000 mls @ 50 mls/hr IV .Q20H RENA Last Admin: 02/23/18 10:02 Dose: 50 mls/hr Meropenem 1 gm/ Sodium (Chloride) 100 mls @ 100 mls/hr IVPB Q12H RENA; Protocol Insulin Aspart (Novolog) 0 unit SC Q6H RENA; Protocol Last Admin: 02/23/18 17:52 Dose: 1 u Morphine Sulfate (Morphine) 2 mg IVP Q6 PRN PRN Reason: for c/o back/lower Last Admin: 02/23/18 10:00 Dose: 2 mg Pantoprazole Sodium (Protonix Inj) 40 mg IVP Q12 RENA Last Admin: 02/23/18 21:47 Dose: 40 mg Results - Vital Signs Recent Vital Signs: Last Vital Signs Temp 98.3 F 02/23/18 20:00 Pulse 97 H 02/23/18 20:30 Resp 14 02/23/18 20:30 BP 120/54 L 02/23/18 20:03 Pulse Ox 100 02/23/18 20:30 - Labs Result Diagrams: 02/23/18 20:34 02/23/18 12:05 Labs: Laboratory Results - last 24 hr 02/21/18 02/21/18 02/23/18 17:40 21:45 00:12 WBC RBC Hgb Hct MCV MCH MCHC RDW Plt Count MPV Neut % (Auto) Lymph % (Auto) [place] % (Auto) Eos % (Auto) Baso % (Auto) Neut # (Auto) Lymph # (Auto) [place] # (Auto) Eos # (Auto) Baso # (Auto) PT INR APTT Sodium Potassium Chloride Carbon Dioxide Anion Gap BUN Creatinine Est GFR ( Amer) Est GFR (Non-Af Amer) POC Glucose (mg/dL) 171 H Random Glucose Calcium Phosphorus Magnesium Total Bilirubin AST ALT Alkaline Phosphatase Total Protein Albumin Globulin Albumin/Globulin Ratio Ur Opiates (GC/MS) Negative Ur Methadone, Qual Negative Urine Propoxyphene Negative Methaqualone Negative Ur Barbiturates, Qual Negative Ur Phencyclidine (PCP) Negative Ur Amphetamines Screen Negative U Benzodiazepines Qual Negative Urine Cocaine Negative U Marijuana (THC) Screen Negative Drugs of Abuse Note See note Blood Type A POSITIVE Antibody Screen Negative 02/23/18 02/23/18 02/23/18 05:10 05:10 05:43 WBC 5.2 RBC 2.72 L Hgb 8.2 L Hct 23.8 L MCV 87.5 MCH 30.1 MCHC 34.4 RDW 19.1 H Plt Count 125 L MPV 8.6 Neut % (Auto) 64.4 Lymph % (Auto) 20.6 [place] % (Auto) 7.9 Eos % (Auto) 5.9 H Baso % (Auto) 1.2 Neut # (Auto) 3.4 Lymph # (Auto) 1.1 [place] # (Auto) 0.4 Eos # (Auto) 0.3 Baso # (Auto) 0.1 PT INR APTT Sodium 146 Potassium 3.8 Chloride 112 H Carbon Dioxide 26 Anion Gap 12 BUN 52 H Creatinine 2.1 H Est GFR ( Amer) 37 Est GFR (Non-Af Amer) 31 POC Glucose (mg/dL) 168 H Random Glucose 166 H Calcium 8.6 Phosphorus 2.9 Magnesium 1.9 Total Bilirubin 1.3 AST 21 ALT 18 L D Alkaline Phosphatase 80 Total Protein 5.7 L Albumin 2.9 L Globulin 2.8 Albumin/Globulin Ratio 1.0 Ur Opiates (GC/MS) Ur Methadone, Qual Urine Propoxyphene Methaqualone Ur Barbiturates, Qual Ur Phencyclidine (PCP) Ur Amphetamines Screen U Benzodiazepines Qual Urine Cocaine U Marijuana (THC) Screen Drugs of Abuse Note Blood Type Antibody Screen 02/23/18 02/23/18 02/23/18 11:27 12:05 12:05 WBC 4.9 RBC 2.73 L Hgb 8.2 L Hct 24.3 L MCV 89.0 MCH 29.9 MCHC 33.7 RDW 18.9 H Plt Count 130 MPV 8.8 Neut % (Auto) 69.8 Lymph % (Auto) 17.2 L [place] % (Auto) 7.4 Eos % (Auto) 4.4 H Baso % (Auto) 1.2 Neut # (Auto) 3.4 Lymph # (Auto) 0.8 L [place] # (Auto) 0.4 Eos # (Auto) 0.2 Baso # (Auto) 0.1 PT 13.7 H D INR 1.3 D APTT 30 Sodium Potassium Chloride Carbon Dioxide Anion Gap BUN Creatinine Est GFR ( Amer) Est GFR (Non-Af Amer) POC Glucose (mg/dL) 182 H Random Glucose Calcium Phosphorus Magnesium Total Bilirubin AST ALT Alkaline Phosphatase Total Protein Albumin Globulin Albumin/Globulin Ratio Ur Opiates (GC/MS) Ur Methadone, Qual Urine Propoxyphene Methaqualone Ur Barbiturates, Qual Ur Phencyclidine (PCP) Ur Amphetamines Screen U Benzodiazepines Qual Urine Cocaine U Marijuana (THC) Screen Drugs of Abuse Note Blood Type Antibody Screen 02/23/18 02/23/18 02/23/18 12:05 17:33 20:34 WBC 4.1 L RBC 2.56 L Hgb 7.5 L Hct 22.7 L MCV 88.5 MCH 29.3 MCHC 33.2 RDW 18.9 H Plt Count 132 MPV 8.4 Neut % (Auto) 67.0 Lymph % (Auto) 18.3 L [place] % (Auto) 7.6 Eos % (Auto) 5.9 H Baso % (Auto) 1.2 Neut # (Auto) 2.7 Lymph # (Auto) 0.7 L [place] # (Auto) 0.3 Eos # (Auto) 0.2 Baso # (Auto) 0.0 PT INR APTT Sodium 145 Potassium 3.8 Chloride 108 H Carbon Dioxide 27 Anion Gap 14 BUN 44 H Creatinine 2.0 H Est GFR ( Amer) 39 Est GFR (Non-Af Amer) 33 POC Glucose (mg/dL) 199 H Random Glucose 177 H Calcium 8.6 Phosphorus 2.6 Magnesium 2.1 Total Bilirubin 1.2 AST 21 ALT 21 Alkaline Phosphatase 81 Total Protein 5.8 L Albumin 2.8 L Globulin 2.9 Albumin/Globulin Ratio 1.0 Ur Opiates (GC/MS) Ur Methadone, Qual Urine Propoxyphene Methaqualone Ur Barbiturates, Qual Ur Phencyclidine (PCP) Ur Amphetamines Screen U Benzodiazepines Qual Urine Cocaine U Marijuana (THC) Screen Drugs of Abuse Note Blood Type Antibody Screen
[2018-02-24] MEDS: (Novolog) Insulin Aspart, Recombinant 100 u/ml 10 ml vial SC SCH ×5 (00:30→22:06)
--- NOTE | 2018-02-24 01:55 | PN ---
DATE: 02/23/2018 SUBJECTIVE: The patient is hemodynamically more stable. His H and H are stable. Urine culture are possible Gram-negative rods, sensitive to Zosyn and sensitive to Gram-negative rods, but he is sensitive to Merrem. The patient is afebrile, on antibiotics. PHYSICAL EXAMINATION: VITAL SIGNS: Blood pressure 162/97, pulse 136, respiratory rate 25, and temperature 98.1. LUNGS: Clear. CARDIOVASCULAR SYSTEM: S1, S2, regular. ABDOMEN: Soft. ASSESSMENT: 1. Urinary tract infection with septicemia. 2. Dehydration. 3. Gastrointestinal bleed. PLAN: Continue current medication. Monitor the patient. Kevin Osborne MD
[2018-02-24] MEDS: Meropenem 1 GM in Sodium Chloride 0.9% 100 ML IVPB SCH ×2 (03:58→16:48)
[2018-02-24 06:20] LABS: BASO # 0.1 K/uL (0.0-0.2); BASO % 1.2 % (0.0-2.0); EOS # 0.4 K/uL (0.0-0.7); EOS % 6.4 % (0.0-4.0); HEMOGLOBIN 8.8 g/dL (12.0-18.0); LYMPH # 1.4 K/uL (1.0-4.3); LYMPH % 22.5 % (20.0-40.0); MEAN CORPUSCULAR HGB CONC 33.7 g/dL (33.0-37.0); MEAN PLATELET VOLUME 8.4 fL (7.2-11.7); MONO # 0.5 K/uL (0.0-0.8); MONO % 7.2 % (0.0-10.0); NEUT # 3.9 K/uL (1.8-7.0); NEUT % 62.7 % (50.0-75.0); RBC 2.93 Mil/uL (4.40-5.90); RED CELL DISTRIBUTION WIDTH 18.3 % (11.5-14.5); WHITE BLOOD COUNT 6.2 K/uL (4.8-10.8)
[2018-02-24 06:36] LABS: INR 1.5; PROTHROMBIN TIME 16.6 SECONDS (9.7-12.2)
[2018-02-24] MEDS: Sodium Chloride 0.9% 1,000 ML IV SCH (06:36)
[2018-02-24 06:46] LABS: ALB/GLOB RATIO 0.9 (1.0-2.1); ALBUMIN 2.8 g/dL (3.5-5.0); CALCIUM 8.5 mg/dl (8.6-10.4)
--- NOTE | 2018-02-24 07:37 | CP.PCM.PN ---
Subjective - Date & Time of Evaluation Date of Evaluation: 02/24/18 Time of Evaluation: 06:35 - Subjective Subjective: Surgery Progress note. Dr. Jordan PT seen and examined at bedside this morning. Patient underwent a EGD on 02/22 with two non-bleeding duodenal ulcers noted. Patient underwent on Colonoscopy 02/23 with no active bleeding, diverticulosis, multiple polyps and internal hemorrhoids. Currently, patient does report some abdominal pain. Received 1U PRBC overnight. Hb responded appropriately and is 8.8 this morning from 7.5. No new complaints noted. A complete 12-point ROS unable to be completed due to dementia hx. Objective - Vital Signs/Intake and Output Vital Signs (last 24 hours): Temp Pulse Resp BP Pulse Ox 98.1 F 118 H 21 149/88 97 02/24/18 04:00 02/24/18 06:03 02/24/18 06:03 02/24/18 06:03 02/24/18 06:03 Intake and Output: 02/24/18 02/24/18 06:59 18:59 Intake Total 1365 Output Total 675 Balance 690 - Medications Medications: Current Medications Diltiazem HCl 125 mg/ Sodium (Chloride) 125 mls @ 5 mls/hr IV .Q24H RENA; Protocol Last Admin: 02/23/18 21:48 Dose: 10 mg/hr, 10 mls/hr Sodium Chloride (Sodium Chloride 0.9%) 1,000 mls @ 50 mls/hr IV .Q20H RENA Last Admin: 02/24/18 06:36 Dose: Not Given Meropenem 1 gm/ Sodium (Chloride) 100 mls @ 100 mls/hr IVPB Q12H RENA; Protocol Last Admin: 02/24/18 03:58 Dose: 100 mls/hr Potassium Chloride (Potassium Chloride 10 Meq/100 Ml) 10 meq in 100 mls @ 100 mls/hr IVPB Q1H RENA Stop: 02/24/18 10:29 Last Admin: 02/24/18 07:24 Dose: 100 mls/hr Insulin Aspart (Novolog) 0 unit SC Q6H RENA; Protocol Last Admin: 02/24/18 06:35 Dose: 1 u Morphine Sulfate (Morphine) 2 mg IVP Q6 PRN PRN Reason: for c/o back/lower Last Admin: 02/23/18 10:00 Dose: 2 mg Pantoprazole Sodium (Protonix Inj) 40 mg IVP Q12 [facility] Last Admin: 02/23/18 21:47 Dose: 40 mg Warfarin Sodium (Coumadin) 2.5 mg PO DAILY RENA - Labs Labs: 02/24/18 06:17 02/24/18 06:17 PT 16.6 SECONDS (9.7-12.2) H 02/24/18 06:17 INR 1.5 02/24/18 06:17 APTT 32 SECONDS (21-34) 02/24/18 06:17 - Constitutional Appears: Non-toxic, No Acute Distress - Head Exam Head Exam: ATRAUMATIC, NORMAL INSPECTION, NORMOCEPHALIC - Eye Exam Eye Exam: EOMI, Normal appearance - ENT Exam ENT Exam: Mucous Membranes Moist - Respiratory Exam Respiratory Exam: NORMAL BREATHING PATTERN. absent: Accessory Muscle Use, Respiratory Distress - Cardiovascular Exam Cardiovascular Exam: absent: JVD - GI/Abdominal Exam GI & Abdominal Exam: Soft. absent: Guarding, Rigid, Rebound Additional comments: Tenderness to deep palpation LUQ and epigastric region. Soft. Non-distended. No Rebound. no guarding. - Extremities Exam Extremities Exam: Normal Inspection. absent: Calf Tenderness - Back Exam Back Exam: NORMAL INSPECTION - Neurological Exam Neurological Exam: Alert, Awake Additional comments: left upper motor defecit - Skin Skin Exam: Dry, Intact, Normal Color, Warm Assessment and Plan - Assessment and Plan (Free Text) Assessment: 77yo M with GI Bleed Plan: - Follow up GI recs - Monitory H&H and transfuse as needed as per Primary and ICU teams - Will continue to monitor Further recs as per Dr. Julian Mills PGY2 Surgery
--- NOTE | 2018-02-24 07:58 | PN ---
DATE: 02/23/2018 CHIEF COMPLAINT: Bleeding per rectum x2 days. HISTORY OF PRESENT ILLNESS: This is a 77-year-old male with history of congestive heart failure, hypertension, type 2 diabetes, coronary artery disease, prostatic obstruction who has a Lord catheter, and he has multiple hospitalizations. The patient was brought into emergency room from a senior living where he is undergoing physical therapy and rehab with two days of rectal bleeding which is bright red, large amount, associated with palpitation, weakness and dizziness. The patient is in distress and he is not able to answer questions. He is not able to make his symptomatology known. The patient has a history of carotid stenosis with prior surgery, atrial fibrillation, on Coumadin. He was brought into emergency room with low blood pressure, low hemoglobin and hematocrit, tachycardia with hypotension, bright red blood per rectum that he had generalized weakness and tiredness. There is a history of fever, chills, and cloudy urine. There is palpitation and weakness. Further details were not obtainable. PAST MEDICAL HISTORY: Hypertension, obstructive uropathy due to benign prostatic hyperplasia, congestive heart failure, CKD, hypertension. SOCIAL HISTORY: Ex-smoker. Ex-EtOH user. CURRENT MEDICATIONS: At the rehab facility, the patient is on milk of magnesia, gabapentin, Lasix, Depakene, Synthroid, Pyridium, clonazepam, Lopressor, Tylenol, Apresoline, Flomax, Protonix, Percocet, and insulin. PHYSICAL EXAMINATION: GENERAL: An elderly male, in distress with weakness, palpitation and tachycardia. VITAL SIGNS: Blood pressure 128/70, pulse 129, respiratory rate 22, temperature 98.5. SKIN: Flushed, pale. Poor turgor. No obvious bruises. HEENT: Atraumatic and normocephalic. Positive pallor. Negative jaundice. Extraocular movements are intact. NECK: Supple. No JVD. No lymph node. No thyromegaly. CHEST WALL: Bilaterally symmetrical expansion. LUNGS: Bilateral basal crepitations. Decreased air entry. CARDIOVASCULAR SYSTEM: S1 and S2. Tachycardic. Irregularly irregular. No heave. No thrill. ABDOMEN: Bowel sounds exaggerated with no tenderness. There is a Lord catheter in place . RECTAL: Deferred. EXTREMITIES: No clubbing, cyanosis. CENTRAL NERVOUS SYSTEM: The patient is arousable. He is weak, lethargic. ASSESSMENT: 1. Gastrointestinal bleed, rule out diverticulosis with bleeding versus peptic ulcer disease versus angiodysplasia versus colon polyps. 2. Rule out septicemia with complicated urinary tract infection due to Lord catheter. 3. Hypertension. 4. Congestive heart failure. PLAN: Admit. Detailed orders written. Seen and examined. Kevin Osborne MD
[2018-02-24] MEDS: Multiple Vitamins Oral Solution PO SCH (09:14)
--- NOTE | 2018-02-24 10:26 | CP.CCUPN ---
<Paulina Brown - Last Filed: 02/24/18 10:40> CCU Subjective - Physician Review Events Since Last Encounter (Free Text): 02/24/18 10:24 1 unit of pRBCs given overnight; no episodes of melena or blood in bowel movement as per nursing staff Subjective (Free Text): PGY-1 Critical Care Progress Note for Dr. Stein's service Patient seen and examined at bedside. Patient is demeted and non-responsive. 12 point ROS limited 2/2 patient clinical condition. 02/24/18 10:24 Critical Care Time Spent (in minutes): 35 CCU Objective - Vital Signs / Intake & Output Vital Signs (Last 4 hours): Vital Signs Temp Pulse Resp BP Pulse Ox 02/24/18 09:00 108 H 17 98 02/24/18 08:30 105 H 12 97 02/24/18 08:03 85 12 132/66 99 02/24/18 08:00 98.3 F 88 13 98 02/24/18 07:30 103 H 21 98 02/24/18 07:03 110 H 25 H 137/87 95 Intake and Output (Last 8hrs): Intake & Output 02/23/18 02/24/18 02/24/18 22:59 06:59 14:59 Intake Total 850 955 425 Output Total 325 500 140 Balance 525 455 285 Weight 192 lb 4.8 oz Intake: IV 120 125 Intake, IV Amount 580 430 180 Midline side port 250 350 150 Right Antecubital 10 Right Forearm 0 Right arm midline 320 80 30 Oral 150 200 120 Blood Product 325 Red Blood Cells Cpd As1 0 Lr Unit [id number] Output: Urine 325 500 140 Urethral (Paulson) 325 500 140 Other: # Bowel Movements 0 0 0 - Physical Exam Head: Positive for: Atraumatic, Normocephalic Extroacular Muscles: Positive for: EOMI Mouth: Positive for: Dry Respiratory/Chest: Positive for: Clear to Auscultation, Good Air Exchange. Negative for: Respiratory Distress, Accessory Muscle Use Cardiovascular: Positive for: Normal S1, S2, Tachycardic Abdomen: Positive for: Normal Bowel Sounds. Negative for: Tenderness, Distention, Peritoneal Signs Genitourinary Male: Positive for: Other (Paulson in place) Upper Extremity: Positive for: Normal Inspection, Other (upper extremity motor weakness). Negative for: Cyanosis, Edema Lower Extremity: Positive for: Normal Inspection, Other (SCDs in place). Negative for: Edema Neurological: Negative for: Speech Normal Skin: Positive for: Dry, Normal Color. Negative for: Rashes, Diaphoretic Psychiatric: Negative for: Oriented x 3, Normal Insight - Medications Active Medications: Active Medications Generic Name Dose Route Start Last Admin Trade Name Yuanq PRN Reason Stop Dose Admin Gabapentin 100 mg 02/24/18 10:00 02/24/18 09:14 Neurontin PO 100 mg DAILY RENA Administration Diltiazem HCl 125 mg/ Sodium 125 mls @ 5 mls/hr 02/23/18 09:00 02/24/18 09:13 Chloride IV 10 mg/hr .Q24H RENA 10 mls/hr Administration Protocol 5 MG/HR Meropenem 1 gm/ Sodium 100 mls @ 100 mls/hr 02/24/18 04:45 02/24/18 03:58 Chloride IVPB 100 mls/hr Q12H RENA Administration Protocol Potassium Chloride 10 meq in 100 mls @ 100 mls/hr 02/24/18 07:30 02/24/18 09:34 Potassium Chloride 10 Meq/100 Ml IVPB 02/24/18 10:29 100 mls/hr Q1H RENA Administration Insulin Aspart 0 unit 02/24/18 11:30 Novolog SC ACHS [facility] Protocol Metoprolol Tartrate 100 mg 02/24/18 10:00 02/24/18 09:14 Lopressor PO 100 mg BID RENA Administration Multivitamins/Vitamin C 5 ml 02/24/18 10:00 02/24/18 09:14 Multi-Delyn Liquid PO 5 ml DAILY RENA Administration Pantoprazole Sodium 40 mg 02/22/18 22:00 02/24/18 09:14 Protonix Inj IVP 40 mg Q12 RENA Administration Rosuvastatin Calcium 5 mg 02/24/18 22:00 Crestor PO HS RENA Vitamin B Complex/Vit C/Folic Acid 1 tab 02/25/18 08:00 Nephro-Marquez PO 0800 RENA Warfarin Sodium 2.5 mg 02/24/18 18:00 Coumadin PO 02/24/18 18:01 1800 RENA - Patient Studies Lab Studies: Microbiology Studies 02/21/18 22:46 Blood Culture - Preliminary Blood-Venous NO GROWTH AFTER 48 HOURS 02/21/18 19:10 Blood Culture - Preliminary Blood-Venous NO GROWTH AFTER 48 HOURS 02/21/18 17:46 Urine Culture - Final Urine Escherichia Coli 02/21/18 21:45 Urine Culture - Final Urine,Paulson Escherichia Coli Lab Studies 02/24/18 02/24/18 02/24/18 Range/Units 06:17 06:17 06:17 WBC 6.2 D (4.8-10.8) K/uL RBC 2.93 L (4.40-5.90) Mil/uL Hgb 8.8 L (12.0-18.0) g/dL Hct 26.1 L (35.0-51.0) % MCV 89.0 (80.0-94.0) fL MCH 30.0 (27.0-31.0) pg MCHC 33.7 (33.0-37.0) g/dL RDW 18.3 H (11.5-14.5) % Plt Count 145 (130-400) K/uL MPV 8.4 (7.2-11.7) fL Neut % (Auto) 62.7 (50.0-75.0) % Lymph % (Auto) 22.5 (20.0-40.0) % [place] % (Auto) 7.2 (0.0-10.0) % Eos % (Auto) 6.4 H (0.0-4.0) % Baso % (Auto) 1.2 (0.0-2.0) % Neut # (Auto) 3.9 (1.8-7.0) K/uL Lymph # (Auto) 1.4 (1.0-4.3) K/uL [place] # (Auto) 0.5 (0.0-0.8) K/uL Eos # (Auto) 0.4 (0.0-0.7) K/uL Baso # (Auto) 0.1 (0.0-0.2) K/uL PT 16.6 H (9.7-12.2) SECONDS INR 1.5 APTT 32 (21-34) SECONDS Sodium 147 (132-148) mmol/L Potassium 3.4 L (3.6-5.2) mmol/L Chloride 111 H (98-107) mmol/L Carbon Dioxide 28 (22-30) mmol/L Anion Gap 11 (10-20) BUN 35 H (9-20) mg/dL Creatinine 1.9 H (0.8-1.5) mg/dL Est GFR ( Amer) 42 Est GFR (Non-Af Amer) 35 POC Glucose (mg/dL) (65-110) mg/dL Random Glucose 154 H (75-110) mg/dL Calcium 8.5 L (8.6-10.4) mg/dl Phosphorus 2.6 (2.5-4.5) mg/dL Magnesium 2.0 (1.6-2.3) mg/dL Total Bilirubin 1.4 H (0.2-1.3) mg/dL AST 15 L D (17-59) U/L ALT 19 L (21-72) U/L Alkaline Phosphatase 79 (38-126) U/L Total Protein 5.9 L (6.3-8.3) g/dL Albumin 2.8 L (3.5-5.0) g/dL Globulin 3.0 (2.2-3.9) gm/dL Albumin/Globulin Ratio 0.9 L (1.0-2.1) Opiates (GC/MS) Methadone (GC/MS) Propoxyphenes Barbiturates Phencyclidine (PCP) Amphetamines Benzodiazepines Cocaine & Metabolite Marijuana Drugs of Abuse Comment Blood Type Antibody Screen 02/24/18 02/23/18 02/23/18 Range/Units 06:03 23:25 20:34 WBC 4.1 L (4.8-10.8) K/uL RBC 2.56 L (4.40-5.90) Mil/uL Hgb 7.5 L (12.0-18.0) g/dL Hct 22.7 L (35.0-51.0) % MCV 88.5 (80.0-94.0) fL MCH 29.3 (27.0-31.0) pg MCHC 33.2 (33.0-37.0) g/dL RDW 18.9 H (11.5-14.5) % Plt Count 132 (130-400) K/uL MPV 8.4 (7.2-11.7) fL Neut % (Auto) 67.0 (50.0-75.0) % Lymph % (Auto) 18.3 L (20.0-40.0) % [place] % (Auto) 7.6 (0.0-10.0) % Eos % (Auto) 5.9 H (0.0-4.0) % Baso % (Auto) 1.2 (0.0-2.0) % Neut # (Auto) 2.7 (1.8-7.0) K/uL Lymph # (Auto) 0.7 L (1.0-4.3) K/uL [place] # (Auto) 0.3 (0.0-0.8) K/uL Eos # (Auto) 0.2 (0.0-0.7) K/uL Baso # (Auto) 0.0 (0.0-0.2) K/uL PT (9.7-12.2) SECONDS INR APTT (21-34) SECONDS Sodium (132-148) mmol/L Potassium (3.6-5.2) mmol/L Chloride (98-107) mmol/L Carbon Dioxide (22-30) mmol/L Anion Gap (10-20) BUN (9-20) mg/dL Creatinine (0.8-1.5) mg/dL Est GFR ( Amer) Est GFR (Non-Af Amer) POC Glucose (mg/dL) 186 H 196 H (65-110) mg/dL Random Glucose (75-110) mg/dL Calcium (8.6-10.4) mg/dl Phosphorus (2.5-4.5) mg/dL Magnesium (1.6-2.3) mg/dL Total Bilirubin (0.2-1.3) mg/dL AST (17-59) U/L ALT (21-72) U/L Alkaline Phosphatase (38-126) U/L Total Protein (6.3-8.3) g/dL Albumin (3.5-5.0) g/dL Globulin (2.2-3.9) gm/dL Albumin/Globulin Ratio (1.0-2.1) Opiates (GC/MS) Methadone (GC/MS) Propoxyphenes Barbiturates Phencyclidine (PCP) Amphetamines Benzodiazepines Cocaine & Metabolite Marijuana Drugs of Abuse Comment Blood Type Antibody Screen 02/23/18 02/23/18 02/23/18 Range/Units 17:33 12:05 12:05 WBC 4.9 (4.8-10.8) K/uL RBC 2.73 L (4.40-5.90) Mil/uL Hgb 8.2 L (12.0-18.0) g/dL Hct 24.3 L (35.0-51.0) % MCV 89.0 (80.0-94.0) fL MCH 29.9 (27.0-31.0) pg MCHC 33.7 (33.0-37.0) g/dL RDW 18.9 H (11.5-14.5) % Plt Count 130 (130-400) K/uL MPV 8.8 (7.2-11.7) fL Neut % (Auto) 69.8 (50.0-75.0) % Lymph % (Auto) 17.2 L (20.0-40.0) % [place] % (Auto) 7.4 (0.0-10.0) % Eos % (Auto) 4.4 H (0.0-4.0) % Baso % (Auto) 1.2 (0.0-2.0) % Neut # (Auto) 3.4 (1.8-7.0) K/uL Lymph # (Auto) 0.8 L (1.0-4.3) K/uL [place] # (Auto) 0.4 (0.0-0.8) K/uL Eos # (Auto) 0.2 (0.0-0.7) K/uL Baso # (Auto) 0.1 (0.0-0.2) K/uL PT (9.7-12.2) SECONDS INR APTT (21-34) SECONDS Sodium 145 (132-148) mmol/L Potassium 3.8 (3.6-5.2) mmol/L Chloride 108 H (98-107) mmol/L Carbon Dioxide 27 (22-30) mmol/L Anion Gap 14 (10-20) BUN 44 H (9-20) mg/dL Creatinine 2.0 H (0.8-1.5) mg/dL Est GFR ( Amer) 39 Est GFR (Non-Af Amer) 33 POC Glucose (mg/dL) 199 H (65-110) mg/dL Random Glucose 177 H (75-110) mg/dL Calcium 8.6 (8.6-10.4) mg/dl Phosphorus 2.6 (2.5-4.5) mg/dL Magnesium 2.1 (1.6-2.3) mg/dL Total Bilirubin 1.2 (0.2-1.3) mg/dL AST 21 (17-59) U/L ALT 21 (21-72) U/L Alkaline Phosphatase 81 (38-126) U/L Total Protein 5.8 L (6.3-8.3) g/dL Albumin 2.8 L (3.5-5.0) g/dL Globulin 2.9 (2.2-3.9) gm/dL Albumin/Globulin Ratio 1.0 (1.0-2.1) Opiates (GC/MS) Methadone (GC/MS) Propoxyphenes Barbiturates Phencyclidine (PCP) Amphetamines Benzodiazepines Cocaine & Metabolite Marijuana Drugs of Abuse Comment Blood Type Antibody Screen 02/23/18 02/23/18 02/21/18 Range/Units 12:05 11:27 22:06 WBC (4.8-10.8) K/uL RBC (4.40-5.90) Mil/uL Hgb (12.0-18.0) g/dL Hct (35.0-51.0) % MCV (80.0-94.0) fL MCH (27.0-31.0) pg MCHC (33.0-37.0) g/dL RDW (11.5-14.5) % Plt Count (130-400) K/uL MPV (7.2-11.7) fL Neut % (Auto) (50.0-75.0) % Lymph % (Auto) (20.0-40.0) % [place] % (Auto) (0.0-10.0) % Eos % (Auto) (0.0-4.0) % Baso % (Auto) (0.0-2.0) % Neut # (Auto) (1.8-7.0) K/uL Lymph # (Auto) (1.0-4.3) K/uL [place] # (Auto) (0.0-0.8) K/uL Eos # (Auto) (0.0-0.7) K/uL Baso # (Auto) (0.0-0.2) K/uL PT 13.7 H D (9.7-12.2) SECONDS INR 1.3 D APTT 30 (21-34) SECONDS Sodium (132-148) mmol/L Potassium (3.6-5.2) mmol/L Chloride (98-107) mmol/L Carbon Dioxide (22-30) mmol/L Anion Gap (10-20) BUN (9-20) mg/dL Creatinine (0.8-1.5) mg/dL Est GFR ( Amer) Est GFR (Non-Af Amer) POC Glucose (mg/dL) 182 H (65-110) mg/dL Random Glucose (75-110) mg/dL Calcium (8.6-10.4) mg/dl Phosphorus (2.5-4.5) mg/dL Magnesium (1.6-2.3) mg/dL Total Bilirubin (0.2-1.3) mg/dL AST (17-59) U/L ALT (21-72) U/L Alkaline Phosphatase (38-126) U/L Total Protein (6.3-8.3) g/dL Albumin (3.5-5.0) g/dL Globulin (2.2-3.9) gm/dL Albumin/Globulin Ratio (1.0-2.1) Opiates (GC/MS) negative Methadone (GC/MS) negative Propoxyphenes negative Barbiturates negative Phencyclidine (PCP) negative Amphetamines negative Benzodiazepines negative Cocaine & Metabolite negative Marijuana negative Drugs of Abuse Comment See note Blood Type Antibody Screen 02/21/18 Range/Units 17:40 WBC (4.8-10.8) K/uL RBC (4.40-5.90) Mil/uL Hgb (12.0-18.0) g/dL Hct (35.0-51.0) % MCV (80.0-94.0) fL MCH (27.0-31.0) pg MCHC (33.0-37.0) g/dL RDW (11.5-14.5) % Plt Count (130-400) K/uL MPV (7.2-11.7) fL Neut % (Auto) (50.0-75.0) % Lymph % (Auto) (20.0-40.0) % [place] % (Auto) (0.0-10.0) % Eos % (Auto) (0.0-4.0) % Baso % (Auto) (0.0-2.0) % Neut # (Auto) (1.8-7.0) K/uL Lymph # (Auto) (1.0-4.3) K/uL [place] # (Auto) (0.0-0.8) K/uL Eos # (Auto) (0.0-0.7) K/uL Baso # (Auto) (0.0-0.2) K/uL PT (9.7-12.2) SECONDS INR APTT (21-34) SECONDS Sodium (132-148) mmol/L Potassium (3.6-5.2) mmol/L Chloride (98-107) mmol/L Carbon Dioxide (22-30) mmol/L Anion Gap (10-20) BUN (9-20) mg/dL Creatinine (0.8-1.5) mg/dL Est GFR ( Amer) Est GFR (Non-Af Amer) POC Glucose (mg/dL) (65-110) mg/dL Random Glucose (75-110) mg/dL Calcium (8.6-10.4) mg/dl Phosphorus (2.5-4.5) mg/dL Magnesium (1.6-2.3) mg/dL Total Bilirubin (0.2-1.3) mg/dL AST (17-59) U/L ALT (21-72) U/L Alkaline Phosphatase (38-126) U/L Total Protein (6.3-8.3) g/dL Albumin (3.5-5.0) g/dL Globulin (2.2-3.9) gm/dL Albumin/Globulin Ratio (1.0-2.1) Opiates (GC/MS) Methadone (GC/MS) Propoxyphenes Barbiturates Phencyclidine (PCP) Amphetamines Benzodiazepines Cocaine & Metabolite Marijuana Drugs of Abuse Comment Blood Type A POSITIVE Antibody Screen Negative Laboratory Results - last 24 hr 02/21/18 02/21/18 02/23/18 17:40 22:06 11:27 WBC RBC Hgb Hct MCV MCH MCHC RDW Plt Count MPV Neut % (Auto) Lymph % (Auto) [place] % (Auto) Eos % (Auto) Baso % (Auto) Neut # (Auto) Lymph # (Auto) [place] # (Auto) Eos # (Auto) Baso # (Auto) PT INR APTT Sodium Potassium Chloride Carbon Dioxide Anion Gap BUN Creatinine Est GFR ( Amer) Est GFR (Non-Af Amer) POC Glucose (mg/dL) 182 H Random Glucose Calcium Phosphorus Magnesium Total Bilirubin AST ALT Alkaline Phosphatase Total Protein Albumin Globulin Albumin/Globulin Ratio Opiates (GC/MS) negative Methadone (GC/MS) negative Propoxyphenes negative Barbiturates negative Phencyclidine (PCP) negative Amphetamines negative Benzodiazepines negative Cocaine & Metabolite negative Marijuana negative Drugs of Abuse Comment See note Blood Type A POSITIVE Antibody Screen Negative 02/23/18 02/23/18 02/23/18 12:05 12:05 12:05 WBC 4.9 RBC 2.73 L Hgb 8.2 L Hct 24.3 L MCV 89.0 MCH 29.9 MCHC 33.7 RDW 18.9 H Plt Count 130 MPV 8.8 Neut % (Auto) 69.8 Lymph % (Auto) 17.2 L [place] % (Auto) 7.4 Eos % (Auto) 4.4 H Baso % (Auto) 1.2 Neut # (Auto) 3.4 Lymph # (Auto) 0.8 L [place] # (Auto) 0.4 Eos # (Auto) 0.2 Baso # (Auto) 0.1 PT 13.7 H D INR 1.3 D APTT 30 Sodium 145 Potassium 3.8 Chloride 108 H Carbon Dioxide 27 Anion Gap 14 BUN 44 H Creatinine 2.0 H Est GFR ( Amer) 39 Est GFR (Non-Af Amer) 33 POC Glucose (mg/dL) Random Glucose 177 H Calcium 8.6 Phosphorus 2.6 Magnesium 2.1 Total Bilirubin 1.2 AST 21 ALT 21 Alkaline Phosphatase 81 Total Protein 5.8 L Albumin 2.8 L Globulin 2.9 Albumin/Globulin Ratio 1.0 Opiates (GC/MS) Methadone (GC/MS) Propoxyphenes Barbiturates Phencyclidine (PCP) Amphetamines Benzodiazepines Cocaine & Metabolite Marijuana Drugs of Abuse Comment Blood Type Antibody Screen 02/23/18 02/23/18 02/23/18 17:33 20:34 23:25 WBC 4.1 L RBC 2.56 L Hgb 7.5 L Hct 22.7 L MCV 88.5 MCH 29.3 MCHC 33.2 RDW 18.9 H Plt Count 132 MPV 8.4 Neut % (Auto) 67.0 Lymph % (Auto) 18.3 L [place] % (Auto) 7.6 Eos % (Auto) 5.9 H Baso % (Auto) 1.2 Neut # (Auto) 2.7 Lymph # (Auto) 0.7 L [place] # (Auto) 0.3 Eos # (Auto) 0.2 Baso # (Auto) 0.0 PT INR APTT Sodium Potassium Chloride Carbon Dioxide Anion Gap BUN Creatinine Est GFR ( Amer) Est GFR (Non-Af Amer) POC Glucose (mg/dL) 199 H 196 H Random Glucose Calcium Phosphorus Magnesium Total Bilirubin AST ALT Alkaline Phosphatase Total Protein Albumin Globulin Albumin/Globulin Ratio Opiates (GC/MS) Methadone (GC/MS) Propoxyphenes Barbiturates Phencyclidine (PCP) Amphetamines Benzodiazepines Cocaine & Metabolite Marijuana Drugs of Abuse Comment Blood Type Antibody Screen 02/24/18 02/24/18 02/24/18 06:03 06:17 06:17 WBC 6.2 D RBC 2.93 L Hgb 8.8 L Hct 26.1 L MCV 89.0 MCH 30.0 MCHC 33.7 RDW 18.3 H Plt Count 145 MPV 8.4 Neut % (Auto) 62.7 Lymph % (Auto) 22.5 [place] % (Auto) 7.2 Eos % (Auto) 6.4 H Baso % (Auto) 1.2 Neut # (Auto) 3.9 Lymph # (Auto) 1.4 [place] # (Auto) 0.5 Eos # (Auto) 0.4 Baso # (Auto) 0.1 PT INR APTT Sodium 147 Potassium 3.4 L Chloride 111 H Carbon Dioxide 28 Anion Gap 11 BUN 35 H Creatinine 1.9 H Est GFR ( Amer) 42 Est GFR (Non-Af Amer) 35 POC Glucose (mg/dL) 186 H Random Glucose 154 H Calcium 8.5 L Phosphorus 2.6 Magnesium 2.0 Total Bilirubin 1.4 H AST 15 L D ALT 19 L Alkaline Phosphatase 79 Total Protein 5.9 L Albumin 2.8 L Globulin 3.0 Albumin/Globulin Ratio 0.9 L Opiates (GC/MS) Methadone (GC/MS) Propoxyphenes Barbiturates Phencyclidine (PCP) Amphetamines Benzodiazepines Cocaine & Metabolite Marijuana Drugs of Abuse Comment Blood Type Antibody Screen 02/24/18 06:17 WBC RBC Hgb Hct MCV MCH MCHC RDW Plt Count MPV Neut % (Auto) Lymph % (Auto) [place] % (Auto) Eos % (Auto) Baso % (Auto) Neut # (Auto) Lymph # (Auto) [place] # (Auto) Eos # (Auto) Baso # (Auto) PT 16.6 H INR 1.5 APTT 32 Sodium Potassium Chloride Carbon Dioxide Anion Gap BUN Creatinine Est GFR ( Amer) Est GFR (Non-Af Amer) POC Glucose (mg/dL) Random Glucose Calcium Phosphorus Magnesium Total Bilirubin AST ALT Alkaline Phosphatase Total Protein Albumin Globulin Albumin/Globulin Ratio Opiates (GC/MS) Methadone (GC/MS) Propoxyphenes Barbiturates Phencyclidine (PCP) Amphetamines Benzodiazepines Cocaine & Metabolite Marijuana Drugs of Abuse Comment Blood Type Antibody Screen Radiology Impressions: Radiology Impressions Pelvis Ultrasound 02/23/18 12:05 IMPRESSION: Paulson catheter balloon within bladder lumen. Bladder nondistended. Enlarged prostate. Fingerstick Blood Sugar Results: 186 Review of Systems - Review of Systems Systems not reviewed;Unavailable: Altered Mental Status Critical Care Progress Note - Extremities/Vascular Does the Patient have a Paulson Catheter?: Yes Does the Patient need a Paulson Catheter?: Yes Catheter Insertion Criteria: Patient has acute urinary retention or bladder outlet obstruction - Restraints Justification for Restraints: High risk for removing IV access - Prophylaxis GI Prophylaxis GI: PPI - Prophylaxis DVT Prophylaxis DVT: Warfarin - Nutrition Nutrition: Nutrition Category Date Time Status Dysphagia/Modified Consistency Diet [DIET] Diets 02/24/18 Breakfast Active Assessment/Plan - Assessment and Plan (Free Text) Assessment: Patient is a 77 yo male w/ PMH of HTN, CAD, DM2, Hypothyroidism, HLD, Afib on warfarin admitted for multiple episodes of bright blood per rectum. INR was noted to be elevated. On labs patient was noted to be anemic. 6 units of pRBCs and 2 units of FFP given. Neuro AMS- likely patient baseline from residential history of stroke- continue plavix as per GI; No aspirin due to concern of recent GI blood loss Pulm No acute issues; maintain o2 sat >90% CV Cardizem drip will be replaced with home lopressor dose Crestor; Warfarin; Repeat INR in AM GI Endoscopy showed clean based ulcers Colonoscopy showed multiple polyps, diverticulosis Bleeding scan no active bleed IV protonix Heme Hgb trended up after 6 units of pRBCs 2 units of FFP given total Goal INR to be therapeutic; Daily INRs; Adjust warfarin as needed Endo ISS ACHS Renal Likely baseline cr 2.0 Chronic paulson for enlarged prostate; U/A- 3+ L.E; 2698 WBCs; Bladder ultrasound pending K repleted via KCl 10meq x 3; Repeat CMP in AM Nephrovite; Multivitamins MSK 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- Gabapentin 100mg tid ID Meropenem; + urine cx for ESBL DVT ppx: Not indicated at this time GI ppx: Protonix IV Dysphagia w/ heart and carb consistency diet Madaser Kevin PGY-1 Medical Management d/w Dr. Stein <Fabiola Stein - Last Filed: 02/24/18 12:15> CCU Objective - Vital Signs / Intake & Output Vital Signs (Last 4 hours): Vital Signs Pulse Resp BP Pulse Ox 02/24/18 11:02 72 17 136/77 98 02/24/18 11:00 70 17 98 02/24/18 10:33 77 22 135/82 100 02/24/18 10:30 75 12 100 02/24/18 10:03 95 H 30 H 136/80 97 02/24/18 10:00 102 H 25 H 94 L 02/24/18 09:32 118 H 23 157/91 H 95 02/24/18 09:30 130 H 28 H 02/24/18 09:21 116 H 19 154/79 H 97 02/24/18 09:03 113 H 14 135/82 97 02/24/18 09:00 108 H 17 98 02/24/18 08:30 105 H 12 97 Intake and Output (Last 8hrs): Intake & Output 02/23/18 02/24/18 02/24/18 22:59 06:59 14:59 Intake Total 850 955 950 Output Total 325 500 230 Balance 525 455 720 Weight 192 lb 4.8 oz Intake: IV 120 230 Intake, IV Amount 580 430 400 Midline side port 250 350 350 Right Antecubital 10 Right Forearm 0 Right arm midline 320 80 50 Oral 150 200 320 Blood Product 325 Red Blood Cells Cpd As1 0 Lr Unit [id number] Output: Urine 325 500 230 Urethral (Paulson) 325 500 230 Other: # Bowel Movements 0 0 0 - Medications Active Medications: Active Medications Generic Name Dose Route Start Last Admin Trade Name Freq PRN Reason Stop Dose Admin Clopidogrel Bisulfate 75 mg 02/24/18 10:30 02/24/18 11:23 Plavix PO 75 mg DAILY RENA Administration Famotidine 20 mg 02/25/18 10:00 Pepcid IVP DAILY [facility] Gabapentin 100 mg 02/24/18 10:00 02/24/18 09:14 Neurontin PO 100 mg DAILY RENA Administration Diltiazem HCl 125 mg/ Sodium 125 mls @ 5 mls/hr 02/23/18 09:00 02/24/18 10:44 Chloride IV 0 mg/hr .Q24H RENA 0 mls/hr Titration Protocol 5 MG/HR Meropenem 1 gm/ Sodium 100 mls @ 100 mls/hr 02/24/18 04:45 02/24/18 03:58 Chloride IVPB 100 mls/hr Q12H RENA Administration Protocol Insulin Aspart 0 unit 02/24/18 11:30 02/24/18 12:00 Novolog SC 3 u ACHS [facility] Administration Protocol Metoprolol Tartrate 100 mg 02/24/18 10:00 02/24/18 09:14 Lopressor PO 100 mg BID RENA Administration Multivitamins/Vitamin C 5 ml 02/24/18 10:00 02/24/18 09:14 Multi-Delyn Liquid PO 5 ml DAILY [facility] Administration Rosuvastatin Calcium 5 mg 02/24/18 22:00 Crestor PO HS [facility] Vitamin B Complex/Vit C/Folic Acid 1 tab 02/25/18 08:00 Nephro-Marquez PO 0800 [facility] Warfarin Sodium 2.5 mg 02/24/18 18:00 Coumadin PO 02/24/18 18:01 1800 [facility] - Patient Studies Lab Studies: Microbiology Studies 02/21/18 22:46 Blood Culture - Preliminary Blood-Venous NO GROWTH AFTER 48 HOURS 02/21/18 19:10 Blood Culture - Preliminary Blood-Venous NO GROWTH AFTER 48 HOURS 02/21/18 17:46 Urine Culture - Final Urine Escherichia Coli 02/21/18 21:45 Urine Culture - Final Urine,Paulson Escherichia Coli Lab Studies 02/24/18 02/24/18 02/24/18 Range/Units 11:47 06:17 06:17 WBC (4.8-10.8) K/uL RBC (4.40-5.90) Mil/uL Hgb (12.0-18.0) g/dL Hct (35.0-51.0) % MCV (80.0-94.0) fL MCH (27.0-31.0) pg MCHC (33.0-37.0) g/dL RDW (11.5-14.5) % Plt Count (130-400) K/uL MPV (7.2-11.7) fL Neut % (Auto) (50.0-75.0) % Lymph % (Auto) (20.0-40.0) % [place] % (Auto) (0.0-10.0) % Eos % (Auto) (0.0-4.0) % Baso % (Auto) (0.0-2.0) % Neut # (Auto) (1.8-7.0) K/uL Lymph # (Auto) (1.0-4.3) K/uL [place] # (Auto) (0.0-0.8) K/uL Eos # (Auto) (0.0-0.7) K/uL Baso # (Auto) (0.0-0.2) K/uL PT 16.6 H (9.7-12.2) SECONDS INR 1.5 APTT 32 (21-34) SECONDS Sodium 147 (132-148) mmol/L Potassium 3.4 L (3.6-5.2) mmol/L Chloride 111 H (98-107) mmol/L Carbon Dioxide 28 (22-30) mmol/L Anion Gap 11 (10-20) BUN 35 H (9-20) mg/dL Creatinine 1.9 H (0.8-1.5) mg/dL Est GFR ( Amer) 42 Est GFR (Non-Af Amer) 35 POC Glucose (mg/dL) 270 H (65-110) mg/dL Random Glucose 154 H (75-110) mg/dL Calcium 8.5 L (8.6-10.4) mg/dl Phosphorus 2.6 (2.5-4.5) mg/dL Magnesium 2.0 (1.6-2.3) mg/dL Total Bilirubin 1.4 H (0.2-1.3) mg/dL AST 15 L D (17-59) U/L ALT 19 L (21-72) U/L Alkaline Phosphatase 79 (38-126) U/L Total Protein 5.9 L (6.3-8.3) g/dL Albumin 2.8 L (3.5-5.0) g/dL Globulin 3.0 (2.2-3.9) gm/dL Albumin/Globulin Ratio 0.9 L (1.0-2.1) Opiates (GC/MS) Methadone (GC/MS) Propoxyphenes Barbiturates Phencyclidine (PCP) Amphetamines Benzodiazepines Cocaine & Metabolite Marijuana Drugs of Abuse Comment Blood Type Antibody Screen 02/24/18 02/24/18 02/23/18 Range/Units 06:17 06:03 23:25 WBC 6.2 D (4.8-10.8) K/uL RBC 2.93 L (4.40-5.90) Mil/uL Hgb 8.8 L (12.0-18.0) g/dL Hct 26.1 L (35.0-51.0) % MCV 89.0 (80.0-94.0) fL MCH 30.0 (27.0-31.0) pg MCHC 33.7 (33.0-37.0) g/dL RDW 18.3 H (11.5-14.5) % Plt Count 145 (130-400) K/uL MPV 8.4 (7.2-11.7) fL Neut % (Auto) 62.7 (50.0-75.0) % Lymph % (Auto) 22.5 (20.0-40.0) % [place] % (Auto) 7.2 (0.0-10.0) % Eos % (Auto) 6.4 H (0.0-4.0) % Baso % (Auto) 1.2 (0.0-2.0) % Neut # (Auto) 3.9 (1.8-7.0) K/uL Lymph # (Auto) 1.4 (1.0-4.3) K/uL [place] # (Auto) 0.5 (0.0-0.8) K/uL Eos # (Auto) 0.4 (0.0-0.7) K/uL Baso # (Auto) 0.1 (0.0-0.2) K/uL PT (9.7-12.2) SECONDS INR APTT (21-34) SECONDS Sodium (132-148) mmol/L Potassium (3.6-5.2) mmol/L Chloride (98-107) mmol/L Carbon Dioxide (22-30) mmol/L Anion Gap (10-20) BUN (9-20) mg/dL Creatinine (0.8-1.5) mg/dL Est GFR ( Amer) Est GFR (Non-Af Amer) POC Glucose (mg/dL) 186 H 196 H (65-110) mg/dL Random Glucose (75-110) mg/dL Calcium (8.6-10.4) mg/dl Phosphorus (2.5-4.5) mg/dL Magnesium (1.6-2.3) mg/dL Total Bilirubin (0.2-1.3) mg/dL AST (17-59) U/L ALT (21-72) U/L Alkaline Phosphatase (38-126) U/L Total Protein (6.3-8.3) g/dL Albumin (3.5-5.0) g/dL Globulin (2.2-3.9) gm/dL Albumin/Globulin Ratio (1.0-2.1) Opiates (GC/MS) Methadone (GC/MS) Propoxyphenes Barbiturates Phencyclidine (PCP) Amphetamines Benzodiazepines Cocaine & Metabolite Marijuana Drugs of Abuse Comment Blood Type Antibody Screen 02/23/18 02/23/18 02/23/18 Range/Units 20:34 17:33 12:05 WBC 4.1 L (4.8-10.8) K/uL RBC 2.56 L (4.40-5.90) Mil/uL Hgb 7.5 L (12.0-18.0) g/dL Hct 22.7 L (35.0-51.0) % MCV 88.5 (80.0-94.0) fL MCH 29.3 (27.0-31.0) pg MCHC 33.2 (33.0-37.0) g/dL RDW 18.9 H (11.5-14.5) % Plt Count 132 (130-400) K/uL MPV 8.4 (7.2-11.7) fL Neut % (Auto) 67.0 (50.0-75.0) % Lymph % (Auto) 18.3 L (20.0-40.0) % [place] % (Auto) 7.6 (0.0-10.0) % Eos % (Auto) 5.9 H (0.0-4.0) % Baso % (Auto) 1.2 (0.0-2.0) % Neut # (Auto) 2.7 (1.8-7.0) K/uL Lymph # (Auto) 0.7 L (1.0-4.3) K/uL [place] # (Auto) 0.3 (0.0-0.8) K/uL Eos # (Auto) 0.2 (0.0-0.7) K/uL Baso # (Auto) 0.0 (0.0-0.2) K/uL PT (9.7-12.2) SECONDS INR APTT (21-34) SECONDS Sodium 145 (132-148) mmol/L Potassium 3.8 (3.6-5.2) mmol/L Chloride 108 H (98-107) mmol/L Carbon Dioxide 27 (22-30) mmol/L Anion Gap 14 (10-20) BUN 44 H (9-20) mg/dL Creatinine 2.0 H (0.8-1.5) mg/dL Est GFR ( Amer) 39 Est GFR (Non-Af Amer) 33 POC Glucose (mg/dL) 199 H (65-110) mg/dL Random Glucose 177 H (75-110) mg/dL Calcium 8.6 (8.6-10.4) mg/dl Phosphorus 2.6 (2.5-4.5) mg/dL Magnesium 2.1 (1.6-2.3) mg/dL Total Bilirubin 1.2 (0.2-1.3) mg/dL AST 21 (17-59) U/L ALT 21 (21-72) U/L Alkaline Phosphatase 81 (38-126) U/L Total Protein 5.8 L (6.3-8.3) g/dL Albumin 2.8 L (3.5-5.0) g/dL Globulin 2.9 (2.2-3.9) gm/dL Albumin/Globulin Ratio 1.0 (1.0-2.1) Opiates (GC/MS) Methadone (GC/MS) Propoxyphenes Barbiturates Phencyclidine (PCP) Amphetamines Benzodiazepines Cocaine & Metabolite Marijuana Drugs of Abuse Comment Blood Type Antibody Screen 02/23/18 02/23/18 02/23/18 Range/Units 12:05 12:05 11:27 WBC 4.9 (4.8-10.8) K/uL RBC 2.73 L (4.40-5.90) Mil/uL Hgb 8.2 L (12.0-18.0) g/dL Hct 24.3 L (35.0-51.0) % MCV 89.0 (80.0-94.0) fL MCH 29.9 (27.0-31.0) pg MCHC 33.7 (33.0-37.0) g/dL RDW 18.9 H (11.5-14.5) % Plt Count 130 (130-400) K/uL MPV 8.8 (7.2-11.7) fL Neut % (Auto) 69.8 (50.0-75.0) % Lymph % (Auto) 17.2 L (20.0-40.0) % [place] % (Auto) 7.4 (0.0-10.0) % Eos % (Auto) 4.4 H (0.0-4.0) % Baso % (Auto) 1.2 (0.0-2.0) % Neut # (Auto) 3.4 (1.8-7.0) K/uL Lymph # (Auto) 0.8 L (1.0-4.3) K/uL [place] # (Auto) 0.4 (0.0-0.8) K/uL Eos # (Auto) 0.2 (0.0-0.7) K/uL Baso # (Auto) 0.1 (0.0-0.2) K/uL PT 13.7 H D (9.7-12.2) SECONDS INR 1.3 D APTT 30 (21-34) SECONDS Sodium (132-148) mmol/L Potassium (3.6-5.2) mmol/L Chloride (98-107) mmol/L Carbon Dioxide (22-30) mmol/L Anion Gap (10-20) BUN (9-20) mg/dL Creatinine (0.8-1.5) mg/dL Est GFR ( Amer) Est GFR (Non-Af Amer) POC Glucose (mg/dL) 182 H (65-110) mg/dL Random Glucose (75-110) mg/dL Calcium (8.6-10.4) mg/dl Phosphorus (2.5-4.5) mg/dL Magnesium (1.6-2.3) mg/dL Total Bilirubin (0.2-1.3) mg/dL AST (17-59) U/L ALT (21-72) U/L Alkaline Phosphatase (38-126) U/L Total Protein (6.3-8.3) g/dL Albumin (3.5-5.0) g/dL Globulin (2.2-3.9) gm/dL Albumin/Globulin Ratio (1.0-2.1) Opiates (GC/MS) Methadone (GC/MS) Propoxyphenes Barbiturates Phencyclidine (PCP) Amphetamines Benzodiazepines Cocaine & Metabolite Marijuana Drugs of Abuse Comment Blood Type Antibody Screen 02/21/18 02/21/18 Range/Units 22:06 17:40 WBC (4.8-10.8) K/uL RBC (4.40-5.90) Mil/uL Hgb (12.0-18.0) g/dL Hct (35.0-51.0) % MCV (80.0-94.0) fL MCH (27.0-31.0) pg MCHC (33.0-37.0) g/dL RDW (11.5-14.5) % Plt Count (130-400) K/uL MPV (7.2-11.7) fL Neut % (Auto) (50.0-75.0) % Lymph % (Auto) (20.0-40.0) % [place] % (Auto) (0.0-10.0) % Eos % (Auto) (0.0-4.0) % Baso % (Auto) (0.0-2.0) % Neut # (Auto) (1.8-7.0) K/uL Lymph # (Auto) (1.0-4.3) K/uL [place] # (Auto) (0.0-0.8) K/uL Eos # (Auto) (0.0-0.7) K/uL Baso # (Auto) (0.0-0.2) K/uL PT (9.7-12.2) SECONDS INR APTT (21-34) SECONDS Sodium (132-148) mmol/L Potassium (3.6-5.2) mmol/L Chloride (98-107) mmol/L Carbon Dioxide (22-30) mmol/L Anion Gap (10-20) BUN (9-20) mg/dL Creatinine (0.8-1.5) mg/dL Est GFR ( Amer) Est GFR (Non-Af Amer) POC Glucose (mg/dL) (65-110) mg/dL Random Glucose (75-110) mg/dL Calcium (8.6-10.4) mg/dl Phosphorus (2.5-4.5) mg/dL Magnesium (1.6-2.3) mg/dL Total Bilirubin (0.2-1.3) mg/dL AST (17-59) U/L ALT (21-72) U/L Alkaline Phosphatase (38-126) U/L Total Protein (6.3-8.3) g/dL Albumin (3.5-5.0) g/dL Globulin (2.2-3.9) gm/dL Albumin/Globulin Ratio (1.0-2.1) Opiates (GC/MS) negative Methadone (GC/MS) negative Propoxyphenes negative Barbiturates negative Phencyclidine (PCP) negative Amphetamines negative Benzodiazepines negative Cocaine & Metabolite negative Marijuana negative Drugs of Abuse Comment See note Blood Type A POSITIVE Antibody Screen Negative Laboratory Results - last 24 hr 02/21/18 02/21/18 02/23/18 17:40 22:06 11:27 WBC RBC Hgb Hct MCV MCH MCHC RDW Plt Count MPV Neut % (Auto) Lymph % (Auto) [place] % (Auto) Eos % (Auto) Baso % (Auto) Neut # (Auto) Lymph # (Auto) [place] # (Auto) Eos # (Auto) Baso # (Auto) PT INR APTT Sodium Potassium Chloride Carbon Dioxide Anion Gap BUN Creatinine Est GFR ( Amer) Est GFR (Non-Af Amer) POC Glucose (mg/dL) 182 H Random Glucose Calcium Phosphorus Magnesium Total Bilirubin AST ALT Alkaline Phosphatase Total Protein Albumin Globulin Albumin/Globulin Ratio Opiates (GC/MS) negative Methadone (GC/MS) negative Propoxyphenes negative Barbiturates negative Phencyclidine (PCP) negative Amphetamines negative Benzodiazepines negative Cocaine & Metabolite negative Marijuana negative Drugs of Abuse Comment See note Blood Type A POSITIVE Antibody Screen Negative 02/23/18 02/23/18 02/23/18 12:05 12:05 12:05 WBC 4.9 RBC 2.73 L Hgb 8.2 L Hct 24.3 L MCV 89.0 MCH 29.9 MCHC 33.7 RDW 18.9 H Plt Count 130 MPV 8.8 Neut % (Auto) 69.8 Lymph % (Auto) 17.2 L [place] % (Auto) 7.4 Eos % (Auto) 4.4 H Baso % (Auto) 1.2 Neut # (Auto) 3.4 Lymph # (Auto) 0.8 L [place] # (Auto) 0.4 Eos # (Auto) 0.2 Baso # (Auto) 0.1 PT 13.7 H D INR 1.3 D APTT 30 Sodium 145 Potassium 3.8 Chloride 108 H Carbon Dioxide 27 Anion Gap 14 BUN 44 H Creatinine 2.0 H Est GFR ( Amer) 39 Est GFR (Non-Af Amer) 33 POC Glucose (mg/dL) Random Glucose 177 H Calcium 8.6 Phosphorus 2.6 Magnesium 2.1 Total Bilirubin 1.2 AST 21 ALT 21 Alkaline Phosphatase 81 Total Protein 5.8 L Albumin 2.8 L Globulin 2.9 Albumin/Globulin Ratio 1.0 Opiates (GC/MS) Methadone (GC/MS) Propoxyphenes Barbiturates Phencyclidine (PCP) Amphetamines Benzodiazepines Cocaine & Metabolite Marijuana Drugs of Abuse Comment Blood Type Antibody Screen 02/23/18 02/23/18 02/23/18 17:33 20:34 23:25 WBC 4.1 L RBC 2.56 L Hgb 7.5 L Hct 22.7 L MCV 88.5 MCH 29.3 MCHC 33.2 RDW 18.9 H Plt Count 132 MPV 8.4 Neut % (Auto) 67.0 Lymph % (Auto) 18.3 L [place] % (Auto) 7.6 Eos % (Auto) 5.9 H Baso % (Auto) 1.2 Neut # (Auto) 2.7 Lymph # (Auto) 0.7 L [place] # (Auto) 0.3 Eos # (Auto) 0.2 Baso # (Auto) 0.0 PT INR APTT Sodium Potassium Chloride Carbon Dioxide Anion Gap BUN Creatinine Est GFR ( Amer) Est GFR (Non-Af Amer) POC Glucose (mg/dL) 199 H 196 H Random Glucose Calcium Phosphorus Magnesium Total Bilirubin AST ALT Alkaline Phosphatase Total Protein Albumin Globulin Albumin/Globulin Ratio Opiates (GC/MS) Methadone (GC/MS) Propoxyphenes Barbiturates Phencyclidine (PCP) Amphetamines Benzodiazepines Cocaine & Metabolite Marijuana Drugs of Abuse Comment Blood Type Antibody Screen 02/24/18 02/24/18 02/24/18 06:03 06:17 06:17 WBC 6.2 D RBC 2.93 L Hgb 8.8 L Hct 26.1 L MCV 89.0 MCH 30.0 MCHC 33.7 RDW 18.3 H Plt Count 145 MPV 8.4 Neut % (Auto) 62.7 Lymph % (Auto) 22.5 [place] % (Auto) 7.2 Eos % (Auto) 6.4 H Baso % (Auto) 1.2 Neut # (Auto) 3.9 Lymph # (Auto) 1.4 [place] # (Auto) 0.5 Eos # (Auto) 0.4 Baso # (Auto) 0.1 PT INR APTT Sodium 147 Potassium 3.4 L Chloride 111 H Carbon Dioxide 28 Anion Gap 11 BUN 35 H Creatinine 1.9 H Est GFR ( Amer) 42 Est GFR (Non-Af Amer) 35 POC Glucose (mg/dL) 186 H Random Glucose 154 H Calcium 8.5 L Phosphorus 2.6 Magnesium 2.0 Total Bilirubin 1.4 H AST 15 L D ALT 19 L Alkaline Phosphatase 79 Total Protein 5.9 L Albumin 2.8 L Globulin 3.0 Albumin/Globulin Ratio 0.9 L Opiates (GC/MS) Methadone (GC/MS) Propoxyphenes Barbiturates Phencyclidine (PCP) Amphetamines Benzodiazepines Cocaine & Metabolite Marijuana Drugs of Abuse Comment Blood Type Antibody Screen 02/24/18 02/24/18 06:17 11:47 WBC RBC Hgb Hct MCV MCH MCHC RDW Plt Count MPV Neut % (Auto) Lymph % (Auto) [place] % (Auto) Eos % (Auto) Baso % (Auto) Neut # (Auto) Lymph # (Auto) [place] # (Auto) Eos # (Auto) Baso # (Auto) PT 16.6 H INR 1.5 APTT 32 Sodium Potassium Chloride Carbon Dioxide Anion Gap BUN Creatinine Est GFR ( Amer) Est GFR (Non-Af Amer) POC Glucose (mg/dL) 270 H Random Glucose Calcium Phosphorus Magnesium Total Bilirubin AST ALT Alkaline Phosphatase Total Protein Albumin Globulin Albumin/Globulin Ratio Opiates (GC/MS) Methadone (GC/MS) Propoxyphenes Barbiturates Phencyclidine (PCP) Amphetamines Benzodiazepines Cocaine & Metabolite Marijuana Drugs of Abuse Comment Blood Type Antibody Screen Radiology Impressions: Radiology Impressions Pelvis Ultrasound 02/23/18 12:05 IMPRESSION: Paulson catheter balloon within bladder lumen. Bladder nondistended. Enlarged prostate. Critical Care Progress Note - Nutrition Nutrition: Nutrition Category Date Time Status Dysphagia/Modified Consistency Diet [DIET] Diets 02/24/18 Breakfast Active Assessment/Plan - Assessment and Plan (Free Text) Plan: Patient seen and examined at bedside. Patient admitted to ICU for Acute blood loss anemia. -s/p multiple endoscopy -no active bleeding -ANemia:chronic, monitor serial cbc -A-fib: CHADSvasc score >2, continue coumadin, benefit > risk after endoscopy, rate control with AV harry tonny -CKS: continue to monitor -oob to chair -restart home medications -Patient remains hemodyncamically stable. - Date & Time Date: 02/24/18 Time: 12:15
[2018-02-24] MEDS: Lidocaine 5% Patch TD SCH (16:04)
--- NOTE | 2018-02-24 17:18 | CP.PCM.CON ---
History of Present Illness - History of Present Illness History of Present Illness: [place] 77[place] and GI Bleed with BRB per rectum Pt takes warfarin and his INR was elevated. Because of hypotension and tachycardia a sepsis alert was activated Urine culture shows ESBL E Coli and infectious disease consulted for this patient cannot provide hx- unknown if he had Paulson in [place] Unable to provide any useful Info Patient has been started on Merrem PMH: AFib on warfarin, HTN, CAD, DM, Hypothyroidism, and HLD PSH: Coronary stent SH (previous admission): Denies tobacco use, alcohol use, and illicit drug use. lives with at home FH: Unable to obtain All: NKDA Med: See MAR Review of Systems - Review of Systems Systems not reviewed;Unavailable: Altered Mental Status All systems: reviewed and no additional remarkable complaints except - Constitutional Constitutional: As Per HPI - EENT Eyes: absent: As Per HPI, Blind Spots, Blurred Vision, Change in Vision, Decreased Night Vision, Diplopia, Discharge, Dry Eye, Exophthalmos, Floaters, Irritation, Itchy Eyes, Loss of Peripheral Vision, Pain, Photophobia, Requires Corrective Lenses, Sees Flashes, Spots in Vision, Tunnel Vision, Other Visual Disturbances, Loss of Vision, Other Ears: absent: As Per HPI, Decreased Hearing, Ear Discharge, Ear Pain, Tinnitus, Abnormal Hearing, Disequilibrium, Dizziness, Other Nose/Mouth/Throat: absent: As Per HPI, Epistaxis, Nasal Congestion, Nasal Discharge, Nasal Obstruction, Nasal Trauma, Nose Pain, Post Nasal Drip, Sinus Pain, Sinus Pressure, Bleeding Gums, Change in Voice, Dental Pain, Dry Mouth, Dysphagia, Halitosis, Hoarsness, Lip Swelling, Mouth Lesions, Mouth Pain, Odynophagia, Sore Throat, Throat Swelling, Tongue Swelling, Facial Pain, Neck Pain, Neck Mass, Other - Cardiovascular Cardiovascular: As Per HPI - Respiratory Respiratory: absent: As Per HPI, Cough, Dyspnea, Hemoptysis, Dyspnea on Exertion, Wheezing, Snoring, Stridor, Pain on Inspiration, Chest Congestion, Ex cessive Mucous Production, Change in Mucous Color, Pain with Coughing, Other - Gastrointestinal Gastrointestinal: As Per HPI, Hematochezia - Genitourinary Genitourinary: absent: As Per HPI, Change in Urinary Stream, Difficulty Urinating, Dysuria, Flank Pain, Hematuria, Pyuria, Nocturia, Urinary Incontinence, Urinary Frequency, Urinary Hesitance, Urinary Urgency, Voiding Freq/Small Amts, Freq UTI, Hx Renal/Bladder Calculi, Hx /Renal Surgery, Bladder Distension, Other - Musculoskeletal Musculoskeletal: absent: As Per HPI, Abnormal Gait, Arthralgias, Atrophy, Back Pain, Deformity, Joint Swelling, Limited Range of Motion, Loss of Height, Muscle Cramps, Muscle Weakness, Myalgias, Neck Pain, Numbness, Radiating Pain into Limb, Stiffness, Tingling, Other - Integumentary Integumentary: absent: As Per HPI, Acne, Alopecia, Bleeding Lesions, Change in Hair, Change in Nails, Change in Pigmentation, Changing Lesions, Dry Skin, Erythema, Furuncle, Hirsutism, Lesions, New Lesions, Non-Healing Lesions, Photosensitivity, Pruritus, Rash, Skin Pain, Skin Ulcer, Sores, Striae, Swelling, Unusual Bruising, Wounds, Jaundice, Other - Neurological Neurological: As Per HPI - Psychiatric Psychiatric: absent: As Per HPI, Abnormal Sleep Pattern, Anhedonia, Anxiety, Auditory Hallucinations, Behavioral Changes, Change in Appetite, Change in Libido, Confusion, Depression, Difficulty Concentrating, Hallucinations, Homicidal Ideation, Hopelessness, Irritability, Memory Loss, Mood Swings, Panic Attacks, Paranoia, Suicidal Ideation, Visual Hallucinations, Tactile Hallucinat ions, Other - Endocrine Endocrine: absent: As Per HPI, Change in Body Appearance, Change in Libido, Cold Intolorance, Deepening of Voice, Excessive Sweating, Fatigue, Flushing, Heat Intolorance, Increase in Ring/Shoe/Hat Size, Palpitations, Polydipsia, Polyphag ia, Polyuria, Other - Hematologic/Lymphatic Hematologic: As Per HPI Past Patient History - Infectious Disease Hx of Infectious Diseases: None - Tetanus Immunizations Tetanus Immunization: Unknown - Past Medical History & Family History Past Medical History?: Yes - Past Social History Smoking Status: Never Smoked - CARDIAC Hx Pacemaker: No - PULMONARY Hx Chronic Obstructive Pulmonary Disease (COPD): No - NEUROLOGICAL Hx Neurological Disorder: No - HEENT Hx HEENT Problems: No - RENAL Hx Chronic Kidney Disease: No - ENDOCRINE/METABOLIC Hx Hypothyroidism: No - HEMATOLOGICAL/ONCOLOGICAL Hx Cancer: No - INTEGUMENTARY Hx Dermatological Problems: No - MUSCULOSKELETAL/RHEUMATOLOGICAL Hx Arthritis: No Hx Falls: Yes Hx Rheumatoid Arthritis: No - GASTROINTESTINAL Hx Gastrointestinal Disorders: No - GENITOURINARY/GYNECOLOGICAL Hx Genitourinary Disorders: No - PSYCHIATRIC Hx Substance Use: No - SURGICAL HISTORY Hx Mastectomy: No - ANESTHESIA Hx Anesthesia: Yes Hx Anesthesia Reactions: No Hx Malignant Hyperthermia: No Meds Allergies/Adverse Reactions: Allergies Allergy/AdvReac Type Severity Reaction Status Date / Time No Known Allergies Allergy Verified 02/21/18 17:15 - Medications Medications: Current Medications Clopidogrel Bisulfate (Plavix) 75 mg PO DAILY [facility] Last Admin: 02/24/18 11:23 Dose: 75 mg Famotidine (Pepcid) 20 mg IVP DAILY [facility] Gabapentin (Neurontin) 100 mg PO DAILY [facility] Last Admin: 02/24/18 09:14 Dose: 100 mg Meropenem 1 gm/ Sodium (Chloride) 100 mls @ 100 mls/hr IVPB Q12H [facility]; Protocol Last Admin: 02/24/18 16:48 Dose: 100 mls/hr Insulin Aspart (Novolog) 0 unit SC ACHS [facility]; Protocol Last Admin: 02/24/18 16:47 Dose: 2 u Lidocaine (Lidoderm) 1 ea TD DAILY [facility] Last Admin: 02/24/18 16:04 Dose: 1 ea Metoprolol Tartrate (Lopressor) 75 mg PO BID [facility] Multivitamins/Vitamin C (Multi-Delyn Liquid) 5 ml PO DAILY [facility] Last Admin: 02/24/18 09:14 Dose: 5 ml Rosuvastatin Calcium (Crestor) 5 mg PO HS [facility] Vitamin B Complex/Vit C/Folic Acid (Nephro-Marquez) 1 tab PO 0800 [facility] Warfarin Sodium (Coumadin) 2.5 mg PO 1800 [facility] Stop: 02/24/18 18:01 Physical Exam - Constitutional Appears: No Acute Distress, Confused, Cachectic, Chronically Ill - Head Exam Head Exam: ATRAUMATIC, NORMAL INSPECTION, NORMOCEPHALIC - Eye Exam Eye Exam: PERRL. absent: Conjunctival injection, Scleral icterus Pupil Exam: NORMAL ACCOMODATION - ENT Exam ENT Exam: Mucous Membranes Dry, Normal External Ear Exam, Normal Oropharynx - Neck Exam Neck exam: Negative for: Lymphadenopathy, Thyromegaly - Respiratory Exam Respiratory Exam: Decreased Breath Sounds, Prolonged Expiratory Phase, Rhonchi - Cardiovascular Exam Cardiovascular Exam: Tachycardia, Irregular Rhythm, +S1, +S2 - GI/Abdominal Exam GI & Abdominal Exam: Diminished Bowel Sounds - Rectal Exam Rectal Exam: Deferred - Exam Exam: NORMAL INSPECTION - Extremities Exam Extremities exam: Positive for: pedal edema, pedal pulses present. Negative for: calf tenderness, tenderness - Back Exam Back exam: absent: CVA tenderness (L), CVA tenderness (R), paraspinal tenderness - Neurological Exam Neurological exam: Alert, Altered, CN II-XII Intact Additional comments: left sided weaskness upper/ lower - Psychiatric Exam Psychiatric exam: Depressed - Skin Skin Exam: Dry, Intact Results - Vital Signs Recent Vital Signs: Last Vital Signs Temp 98.0 F 02/24/18 16:00 Pulse 77 02/24/18 17:02 Resp 14 02/24/18 17:02 BP 125/81 02/24/18 17:02 Pulse Ox 91 L 02/24/18 17:02 - Labs Result Diagrams: 02/24/18 06:17 02/24/18 06:17 Labs: Laboratory Results - last 24 hr 02/21/18 02/21/18 02/23/18 17:40 22:06 17:33 WBC RBC Hgb Hct MCV MCH MCHC RDW Plt Count MPV Neut % (Auto) Lymph % (Auto) [place] % (Auto) Eos % (Auto) Baso % (Auto) Neut # (Auto) Lymph # (Auto) [place] # (Auto) Eos # (Auto) Baso # (Auto) PT INR APTT Sodium Potassium Chloride Carbon Dioxide Anion Gap BUN Creatinine Est GFR ( Amer) Est GFR (Non-Af Amer) POC Glucose (mg/dL) 199 H Random Glucose Calcium Phosphorus Magnesium Total Bilirubin AST ALT Alkaline Phosphatase Total Protein Albumin Globulin Albumin/Globulin Ratio Opiates (GC/MS) negative Methadone (GC/MS) negative Propoxyphenes negative Barbiturates negative Phencyclidine (PCP) negative Amphetamines negative Benzodiazepines negative Cocaine & Metabolite negative Marijuana negative Drugs of Abuse Comment See note Blood Type A POSITIVE Antibody Screen Negative 02/23/18 02/23/18 02/24/18 20:34 23:25 06:03 WBC 4.1 L RBC 2.56 L Hgb 7.5 L Hct 22.7 L MCV 88.5 MCH 29.3 MCHC 33.2 RDW 18.9 H Plt Count 132 MPV 8.4 Neut % (Auto) 67.0 Lymph % (Auto) 18.3 L [place] % (Auto) 7.6 Eos % (Auto) 5.9 H Baso % (Auto) 1.2 Neut # (Auto) 2.7 Lymph # (Auto) 0.7 L [place] # (Auto) 0.3 Eos # (Auto) 0.2 Baso # (Auto) 0.0 PT INR APTT Sodium Potassium Chloride Carbon Dioxide Anion Gap BUN Creatinine Est GFR ( Amer) Est GFR (Non-Af Amer) POC Glucose (mg/dL) 196 H 186 H Random Glucose Calcium Phosphorus Magnesium Total Bilirubin AST ALT Alkaline Phosphatase Total Protein Albumin Globulin Albumin/Globulin Ratio Opiates (GC/MS) Methadone (GC/MS) Propoxyphenes Barbiturates Phencyclidine (PCP) Amphetamines Benzodiazepines Cocaine & Metabolite Marijuana Drugs of Abuse Comment Blood Type Antibody Screen 02/24/18 02/24/18 02/24/18 06:17 06:17 06:17 WBC 6.2 D RBC 2.93 L Hgb 8.8 L Hct 26.1 L MCV 89.0 MCH 30.0 MCHC 33.7 RDW 18.3 H Plt Count 145 MPV 8.4 Neut % (Auto) 62.7 Lymph % (Auto) 22.5 [place] % (Auto) 7.2 Eos % (Auto) 6.4 H Baso % (Auto) 1.2 Neut # (Auto) 3.9 Lymph # (Auto) 1.4 [place] # (Auto) 0.5 Eos # (Auto) 0.4 Baso # (Auto) 0.1 PT 16.6 H INR 1.5 APTT 32 Sodium 147 Potassium 3.4 L Chloride 111 H Carbon Dioxide 28 Anion Gap 11 BUN 35 H Creatinine 1.9 H Est GFR ( Amer) 42 Est GFR (Non-Af Amer) 35 POC Glucose (mg/dL) Random Glucose 154 H Calcium 8.5 L Phosphorus 2.6 Magnesium 2.0 Total Bilirubin 1.4 H AST 15 L D ALT 19 L Alkaline Phosphatase 79 Total Protein 5.9 L Albumin 2.8 L Globulin 3.0 Albumin/Globulin Ratio 0.9 L Opiates (GC/MS) Methadone (GC/MS) Propoxyphenes Barbiturates Phencyclidine (PCP) Amphetamines Benzodiazepines Cocaine & Metabolite Marijuana Drugs of Abuse Comment Blood Type Antibody Screen 12/28/18 12/28/18 11:47 16:11 WBC RBC Hgb Hct MCV MCH MCHC RDW Plt Count MPV Neut % (Auto) Lymph % (Auto) [place] % (Auto) Eos % (Auto) Baso % (Auto) Neut # (Auto) Lymph # (Auto) [place] # (Auto) Eos # (Auto) Baso # (Auto) PT INR APTT Sodium Potassium Chloride Carbon Dioxide Anion Gap BUN Creatinine Est GFR ( Amer) Est GFR (Non-Af Amer) POC Glucose (mg/dL) 270 H 217 H Random Glucose Calcium Phosphorus Magnesium Total Bilirubin AST ALT Alkaline Phosphatase Total Protein Albumin Globulin Albumin/Globulin Ratio Opiates (GC/MS) Methadone (GC/MS) Propoxyphenes Barbiturates Phencyclidine (PCP) Amphetamines Benzodiazepines Cocaine & Metabolite Marijuana Drugs of Abuse Comment Blood Type Antibody Screen Assessment & Plan (1) Infection due to ESBL-producing Escherichia coli Status: Acute (2) UTI (urinary tract infection) Status: Acute (3) GI bleed Status: Acute (4) Anemia Status: Acute (5) Dementia Status: Acute (6) Diabetes mellitus Status: Acute (7) HLD (hyperlipidemia) Status: Acute (8) Hypothyroid Status: Acute - Assessment and Plan (Free Text) Assessment: will cont Merrem for ESBL UTI and order contact isolation would avoid paulson catheter if possible once stable consider eval anticipate min 10-14 days IV antibiotics
--- NOTE | 2018-02-24 18:29 | CP.PCM.PN ---
Subjective - Date & Time of Evaluation Date of Evaluation: 02/24/18 Time of Evaluation: 10:10 - Subjective Subjective: Patient seen and examined at bedside. Patient c/o left arm pain Physical Examination - Physical Exam Head: Positive for: Atraumatic, Normocephalic Extroacular Muscles: Positive for: EOMI Mouth: Positive for: Dry Respiratory/Chest: Positive for: Clear to Auscultation, Good Air Exchange. Negative for: Respiratory Distress, Accessory Muscle Use Cardiovascular: Positive for: Normal S1, S2, Tachycardic Abdomen: Positive for: Normal Bowel Sounds. Negative for: Tenderness, Distention, Peritoneal Signs Genitourinary Male: Positive for: Other (Paulson in place) Upper Extremity: Positive for: Normal Inspection, Other (upper extremity motor weakness). Negative for: Cyanosis, Edema Lower Extremity: Positive for: Normal Inspection, Other (SCDs in place). Negative for: Edema Neurological: Negative for: Speech Normal Skin: Positive for: Dry, Normal Color. Negative for: Rashes, Diaphoretic Psychiatric: Negative for: Oriented x 3, Normal Insight Assessment/Plan - Assessment and Plan (Free Text) Assessment: Patient is a 77 yo male w/ PMH of HTN, CAD, DM2, Hypothyroidism, HLD, Afib on warfarin admitted for multiple episodes of bright blood per rectum. INR was noted to be elevated. On labs patient was noted to be anemic. 6 units of pRBCs and 2 units of FFP given. Neuro AMS- likely patient baseline from halfway history of stroke- continue plavix as per GI; No aspirin due to concern of rece nt GI blood loss Pulm No acute issues; maintain o2 sat >90% CV Cardizem drip will be replaced with home lopressor dose Crestor; Warfarin; Repeat INR in AM GI Endoscopy showed clean based ulcers Colonoscopy showed multiple polyps, diverticulosis Bleeding scan no active bleed IV protonix Heme Hgb trended up after 6 units of pRBCs 2 units of FFP given total Goal INR to be therapeutic; Daily INRs; Adjust warfarin as needed Endo ISS ACHS Renal Likely baseline cr 2.0 Chronic paulson for enlarged prostate; U/A- 3+ L.E; 2698 WBCs; Bladder ultrasound pending K repleted via KCl 10meq x 3; Repeat CMP in AM Nephrovite; Multivitamins MSK 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- Gabapentin 100mg tid ID Meropenem; + urine cx for ESBL DVT ppx: Not indicated at this time GI ppx: Protonix IV Dysphagia w/ heart and carb consistency diet Objective - Vital Signs/Intake and Output Vital Signs (last 24 hours): Temp Pulse Resp BP Pulse Ox 98.0 F 80 17 142/75 97 02/24/18 16:00 02/24/18 18:03 02/24/18 18:03 02/24/18 18:03 02/24/18 18:03 Intake and Output: 02/24/18 02/24/18 06:59 18:59 Intake Total 1365 1370 Output Total 675 520 Balance 690 850 - Medications Medications: Current Medications Clopidogrel Bisulfate (Plavix) 75 mg PO DAILY REPLACED BY [facility] Last Admin: 02/24/18 11:23 Dose: 75 mg Famotidine (Pepcid) 20 mg IVP DAILY REPLACED BY [facility] Gabapentin (Neurontin) 100 mg PO DAILY REPLACED BY [facility] Last Admin: 02/24/18 09:14 Dose: 100 mg Meropenem 1 gm/ Sodium (Chloride) 100 mls @ 100 mls/hr IVPB Q12H REPLACED BY [facility]; Protocol Last Admin: 02/24/18 16:48 Dose: 100 mls/hr Insulin Aspart (Novolog) 0 unit SC ACHS REPLACED BY [facility]; Protocol Last Admin: 02/24/18 16:47 Dose: 2 u Lidocaine (Lidoderm) 1 ea TD DAILY REPLACED BY [facility] Last Admin: 02/24/18 16:04 Dose: 1 ea Metoprolol Tartrate (Lopressor) 75 mg PO BID REPLACED BY [facility] Last Admin: 02/24/18 17:55 Dose: 75 mg Multivitamins/Vitamin C (Multi-Delyn Liquid) 5 ml PO DAILY REPLACED BY [facility] Last Admin: 02/24/18 09:14 Dose: 5 ml Rosuvastatin Calcium (Crestor) 5 mg PO HS REPLACED BY [facility] Vitamin B Complex/Vit C/Folic Acid (Nephro-Marquez) 1 tab PO 0800 REPLACED BY [facility] - Labs Labs: 02/24/18 06:17 02/24/18 06:17 PT 16.6 SECONDS (9.7-12.2) H 02/24/18 06:17 INR 1.5 02/24/18 06:17 APTT 32 SECONDS (21-34) 02/24/18 06:17
--- NOTE | 2018-02-24 21:58 | CP.PCM.PN ---
Subjective - Subjective Subjective: dictated Objective - Vital Signs/Intake and Output Vital Signs (last 24 hours): Temp Pulse Resp BP Pulse Ox 98.1 F 70 30 H 157/76 H 98 02/24/18 20:00 02/24/18 21:00 02/24/18 21:00 02/24/18 20:26 02/24/18 20:00 Intake and Output: 02/24/18 02/25/18 18:59 06:59 Intake Total 1570 180 Output Total 610 70 Balance 960 110 - Medications Medications: Current Medications Clopidogrel Bisulfate (Plavix) [address] [facility] Last Admin: 02/24/18 11:23 Dose: 75 mg Famotidine (Pepcid) 20 mg IVP DAILY [facility] Gabapentin (Neurontin) [address] [facility] Last Admin: 02/24/18 09:14 Dose: 100 mg Meropenem 1 gm/ Sodium (Chloride) 100 mls @ 100 mls/hr IVPB Q12H [facility]; Protocol Last Admin: 02/24/18 16:48 Dose: 100 mls/hr Insulin Aspart (Novolog) [address] [facility]; Protocol Last Admin: 02/24/18 16:47 Dose: 2 u Lidocaine (Lidoderm) [address] [facility] Last Admin: 02/24/18 16:04 Dose: 1 ea Metoprolol Tartrate (Lopressor) [address] [facility] Last Admin: 02/24/18 17:55 Dose: 75 mg Multivitamins/Vitamin C (Multi-Delyn Liquid) [address] [facility] Last Admin: 02/24/18 09:14 Dose: 5 ml Rosuvastatin Calcium (Crestor) [address] [facility] Last Admin: 02/24/18 21:28 Dose: 5 mg Vitamin B Complex/Vit C/Folic Acid (Nephro-Marquez) [address] [facility] - Labs Labs: 02/24/18 06:17 02/24/18 06:17 PT 16.6 SECONDS (9.7-12.2) H 02/24/18 06:17 INR 1.5 02/24/18 06:17 APTT 32 SECONDS (21-34) 02/24/18 06:17
--- NOTE | 2018-02-25 01:12 | PN ---
DATE: 02/24/2018 SUBJECTIVE: The patient is afebrile, on antibiotics, decreased dysuria. He has generalized weakness. No nausea or vomiting. No fever. PHYSICAL EXAMINATION: VITAL SIGNS: Blood pressure 157/76, pulse 72, respiratory rate 12, temperature 98.1. LUNGS: Clear. CARDIOVASCULAR SYSTEM: S1 and S2 regular. ABDOMEN: Soft and nontender. Bowel sounds are positive. GENITALS: Normal EXTREMITIES: No clubbing, cyanosis, or edema. CENTRAL NERVOUS SYSTEM: Awake, alert and oriented x1. ASSESSMENT: 1. Gastrointestinal bleed, status post esophagogastroduodenoscopy and colonoscopy. 2. Congestive heart failure. 3. Urinary tract infection, rule out septicemia. Patient has E.coli sensitive to Zosyn. PLAN: Continue antibiotics. ICU. Monitor patient. Kevin Osborne MD
[2018-02-25] MEDS: Meropenem 1 GM in Sodium Chloride 0.9% 100 ML IVPB SCH ×2 (04:26→17:38)
[2018-02-25 05:12] LABS: BASO # 0.1 K/uL (0.0-0.2); EOS # 0.5 K/uL (0.0-0.7); EOS % 9.1 % (0.0-4.0); LYMPH # 1.3 K/uL (1.0-4.3); LYMPH % 22.4 % (20.0-40.0); MEAN CELL VOLUME 89.6 fL (80.0-94.0); MEAN CORPUSCULAR HEMOGLOBIN 29.3 pg (27.0-31.0); MEAN CORPUSCULAR HGB CONC 32.7 g/dL (33.0-37.0); MEAN PLATELET VOLUME 8.5 fL (7.2-11.7); MONO # 0.5 K/uL (0.0-0.8); MONO % 7.7 % (0.0-10.0); NEUT # 3.6 K/uL (1.8-7.0); NEUT % 59.8 % (50.0-75.0); RBC 3.08 Mil/uL (4.40-5.90); RED CELL DISTRIBUTION WIDTH 18.3 % (11.5-14.5); WHITE BLOOD COUNT 5.9 K/uL (4.8-10.8)
[2018-02-25 05:28] LABS: INR 1.8; PROTHROMBIN TIME 19.5 SECONDS (9.7-12.2)
[2018-02-25 05:35] LABS: ALB/GLOB RATIO 0.9 (1.0-2.1); ALBUMIN 2.9 g/dL (3.5-5.0); CALCIUM 8.8 mg/dl (8.6-10.4)
--- NOTE | 2018-02-25 07:25 | CP.PCM.PN ---
Subjective - Date & Time of Evaluation Date of Evaluation: 02/25/18 Time of Evaluation: 06:25 - Subjective Subjective: Surgery Progress note. Dr. Jordan Pt seen and examined at bedside. No acute events overnight. No further episodes of overt bleeding noted. Hb 9.0 this morning. Objective - Vital Signs/Intake and Output Vital Signs (last 24 hours): Temp Pulse Resp BP Pulse Ox 98.7 F 92 H 29 H 160/81 H 99 02/25/18 04:00 02/25/18 07:00 02/25/18 07:00 02/25/18 06:48 02/25/18 07:00 Intake and Output: 02/25/18 02/25/18 06:59 18:59 Intake Total 640 0 Output Total 440 30 Balance 200 -30 - Medications Medications: Current Medications Clopidogrel Bisulfate (Plavix) 75 mg PO DAILY [facility] Last Admin: 02/24/18 11:23 Dose: 75 mg Famotidine (Pepcid) 20 mg IVP DAILY [facility] Gabapentin (Neurontin) 100 mg PO DAILY [facility] Last Admin: 02/24/18 09:14 Dose: 100 mg Meropenem 1 gm/ Sodium (Chloride) 100 mls @ 100 mls/hr IVPB Q12H [facility]; Protocol Last Admin: 02/25/18 04:26 Dose: 100 mls/hr Insulin Aspart (Novolog) 0 unit SC ACHS [facility]; Protocol Last Admin: 02/24/18 22:06 Dose: Not Given Lidocaine (Lidoderm) 1 ea TD DAILY [facility] Last Admin: 02/24/18 16:04 Dose: 1 ea Metoprolol Tartrate (Lopressor) 75 mg PO BID [facility] Last Admin: 02/24/18 17:55 Dose: 75 mg Multivitamins/Vitamin C (Multi-Delyn Liquid) 5 ml PO DAILY [facility] Last Admin: 02/24/18 09:14 Dose: 5 ml Rosuvastatin Calcium (Crestor) 5 mg PO HS [facility] Last Admin: 02/24/18 21:28 Dose: 5 mg Vitamin B Complex/Vit C/Folic Acid (Nephro-Marquez) 1 tab PO 0800 [facility] - Labs Labs: 02/25/18 05:08 02/25/18 05:08 PT 19.5 SECONDS (9.7-12.2) H 02/25/18 05:08 INR 1.8 02/25/18 05:08 APTT 35 SECONDS (21-34) H 02/25/18 05:08 - Constitutional Appears: Non-toxic, No Acute Distress - Head Exam Head Exam: ATRAUMATIC, NORMAL INSPECTION, NORMOCEPHALIC - Eye Exam Eye Exam: EOMI, Normal appearance. absent: Scleral icterus - Respiratory Exam Respiratory Exam: NORMAL BREATHING PATTERN. absent: Accessory Muscle Use, Respiratory Distress - Cardiovascular Exam Cardiovascular Exam: absent: JVD - GI/Abdominal Exam GI & Abdominal Exam: Soft. absent: Distended, Firm, Guarding, Rigid, Rebound Additional comments: mild lower abdominal tenderness noted. - Extremities Exam Extremities Exam: Normal Inspection. absent: Calf Tenderness - Neurological Exam Neurological Exam: Awake - Psychiatric Exam Psychiatric exam: Normal Affect, Normal Mood - Skin Skin Exam: Dry, Intact, Normal Color, Warm Assessment and Plan - Assessment and Plan (Free Text) Assessment: 77yo M with UGI bleeding. Resolved Plan: - No further surgical intervention warranted at this time - continue PPI therapy - Medical mgmt as per ICU team Further recs as per Dr. Julian Mills PGY2 surgery
[2018-02-25] MEDS: (Novolog) Insulin Aspart, Recombinant 100 u/ml 10 ml vial SC SCH ×4 (08:09→21:04)
[2018-02-25] MEDS: Multivitamin Vitamin B Complex (Nephro-Vite) Tab PO SCH (08:11)
--- NOTE | 2018-02-25 08:16 | CP.PCM.PN ---
Subjective - Date & Time of Evaluation Date of Evaluation: 02/25/18 Time of Evaluation: 08:15 - Subjective Subjective: Patient has no specific complaints Objective - Vital Signs/Intake and Output Vital Signs (last 24 hours): Temp Pulse Resp BP Pulse Ox 98.7 F 92 H 29 H 160/81 H 99 02/25/18 04:00 02/25/18 07:00 02/25/18 07:00 02/25/18 06:48 02/25/18 07:00 Intake and Output: 02/25/18 02/25/18 06:59 18:59 Intake Total 640 0 Output Total 440 30 Balance 200 -30 - Medications Medications: Current Medications Clopidogrel Bisulfate (Plavix) 75 mg PO DAILY [facility] Last Admin: 02/24/18 11:23 Dose: 75 mg Famotidine (Pepcid) 20 mg IVP DAILY [facility] Gabapentin (Neurontin) 100 mg PO DAILY [facility] Last Admin: 02/24/18 09:14 Dose: 100 mg Meropenem 1 gm/ Sodium (Chloride) 100 mls @ 100 mls/hr IVPB Q12H [facility]; Protocol Last Admin: 02/25/18 04:26 Dose: 100 mls/hr Insulin Aspart (Novolog) 0 unit SC ACHS [facility]; Protocol Last Admin: 02/25/18 08:09 Dose: 1 u Lidocaine (Lidoderm) 1 ea TD DAILY [facility] Last Admin: 02/24/18 16:04 Dose: 1 ea Metoprolol Tartrate (Lopressor) 75 mg PO BID [facility] Last Admin: 02/24/18 17:55 Dose: 75 mg Multivitamins/Vitamin C (Multi-Delyn Liquid) 5 ml PO DAILY [facility] Last Admin: 02/24/18 09:14 Dose: 5 ml Pantoprazole Sodium (Protonix Inj) 40 mg IVP Q12H [facility] Rosuvastatin Calcium (Crestor) 5 mg PO HS [facility] Last Admin: 02/24/18 21:28 Dose: 5 mg Vitamin B Complex/Vit C/Folic Acid (Nephro-Marquez) 1 tab PO 0800 [facility] Last Admin: 02/25/18 08:11 Dose: 1 tab - Labs Labs: 02/25/18 05:08 02/25/18 05:08 PT 19.5 SECONDS (9.7-12.2) H 02/25/18 05:08 INR 1.8 02/25/18 05:08 APTT 35 SECONDS (21-34) H 02/25/18 05:08 - Head Exam Head Exam: ATRAUMATIC, NORMAL INSPECTION Additional comments: (+)facial droop (chornic) - Neck Exam Neck Exam: Normal Inspection - Respiratory Exam Respiratory Exam: Clear to Ausculation Bilateral, NORMAL BREATHING PATTERN - Cardiovascular Exam Cardiovascular Exam: Irregular Rhythm, +S1, +S2 - GI/Abdominal Exam GI & Abdominal Exam: Normal Bowel Sounds - Extremities Exam Extremities Exam: Pedal Edema - Neurological Exam Neurological Exam: Alert, Awake Neuro motor strength exam: Left Upper Extremity: 0, Right Upper Extremity: 4, Left Lower Extremity: 3, Right Lower Extremity: 4 - Skin Skin Exam: Normal Color, Warm Assessment and Plan - Assessment and Plan (Free Text) Assessment: Patient seen and examined at bedside. Patient admitted to ICU for Acute blood loss anemia. -s/p multiple endoscopy -no active bleeding over night -ANemia:chronic, monitor serial cbc -A-fib/CVA: CHADSvasc score >2, continue coumadin, benefit > risk after endoscopy, rate control with AV harry tonny -CKS: continue to monitor -oob to chair -restart home medications -left arm pain improved with gabapentin + lidocaine patch (off opoid) -Patient remains hemodyncamically stable.
[2018-02-25] MEDS: Multiple Vitamins Oral Solution PO SCH (09:19)
[2018-02-25] MEDS: Sucralfate 1 gm/10 ml Oral Susp UD PO SCH ×4 (09:19→22:47)
[2018-02-25] MEDS: Lidocaine 5% Patch TD SCH (09:19)
--- NOTE | 2018-02-25 21:23 | CP.PCM.PN ---
Subjective - Subjective Subjective: dictated Objective - Vital Signs/Intake and Output Vital Signs (last 24 hours): Temp Pulse Resp BP Pulse Ox 98.1 F 73 19 151/98 H 99 02/25/18 20:00 02/25/18 20:30 02/25/18 20:30 02/25/18 20:09 02/25/18 20:30 Intake and Output: 02/25/18 02/26/18 18:59 06:59 Intake Total 1000 Output Total 450 125 Balance 550 -125 - Medications Medications: Current Medications Ascorbic Acid (Vitamin C 500 Mg Tab) 500 mg PO BID [facility] Last Admin: 02/25/18 17:45 Dose: 500 mg Clopidogrel Bisulfate (Plavix) 75 mg PO DAILY [facility] Last Admin: 02/25/18 09:18 Dose: 75 mg Famotidine (Pepcid) 20 mg IVP DAILY [facility] Last Admin: 02/25/18 09:19 Dose: 20 mg Finasteride (Proscar) 5 mg PO DAILY [facility] Last Admin: 02/25/18 09:18 Dose: 5 mg Gabapentin (Neurontin) 100 mg PO DAILY [facility] Last Admin: 02/25/18 09:18 Dose: 100 mg Hydralazine HCl (Apresoline) 10 mg PO QID [facility] Last Admin: 02/25/18 17:44 Dose: 10 mg Meropenem 1 gm/ Sodium (Chloride) 100 mls @ 100 mls/hr IVPB Q12H [facility]; Protocol Last Admin: 02/25/18 17:38 Dose: 100 mls/hr Insulin Aspart (Novolog) 0 unit SC ACHS [facility]; Protocol Last Admin: 02/25/18 21:04 Dose: Not Given Lidocaine (Lidoderm) 1 ea TD DAILY [facility] Last Admin: 02/25/18 09:19 Dose: 1 ea Metoprolol Tartrate (Lopressor) 75 mg PO BID [facility] Last Admin: 02/25/18 17:39 Dose: 75 mg Multivitamins/Vitamin C (Multi-Delyn Liquid) 5 ml PO DAILY [facility] Last Admin: 02/25/18 09:19 Dose: 5 ml Rosuvastatin Calcium (Crestor) 5 mg PO HS [facility] Last Admin: 02/24/18 21:28 Dose: 5 mg Sucralfate (Carafate Oral Susp) 1 gm PO QID [facility] Last Admin: 02/25/18 17:38 Dose: 1 gm Tamsulosin HCl (Flomax) 0.4 mg PO DAILY [facility] Last Admin: 02/25/18 09:17 Dose: 0.4 mg Vitamin B Complex/Vit C/Folic Acid (Nephro-Marquez) 1 tab PO 0800 [facility] Last Admin: 02/25/18 08:11 Dose: 1 tab - Labs Labs: 02/25/18 05:08 02/25/18 05:08 PT 19.5 SECONDS (9.7-12.2) H 02/25/18 05:08 INR 1.8 02/25/18 05:08 APTT 35 SECONDS (21-34) H 02/25/18 05:08
--- NOTE | 2018-02-25 23:29 | CP.PCM.PN ---
Subjective - Date & Time of Evaluation Date of Evaluation: 02/25/18 Time of Evaluation: 08:20 - Subjective Subjective: Patient seen and examined at bedside. No cardiac events noted No new complaints Objective - Vital Signs/Intake and Output Vital Signs (last 24 hours): Temp Pulse Resp BP Pulse Ox 98.1 F 73 19 151/98 H 99 02/25/18 20:00 02/25/18 20:30 02/25/18 20:30 02/25/18 20:09 02/25/18 20:30 Intake and Output: 02/25/18 02/26/18 18:59 06:59 Intake Total 1000 Output Total 450 125 Balance 550 -125 - Medications Medications: Current Medications Ascorbic Acid (Vitamin C 500 Mg Tab) 500 mg PO BID [facility] Last Admin: 02/25/18 17:45 Dose: 500 mg Clopidogrel Bisulfate (Plavix) 75 mg PO DAILY [facility] Last Admin: 02/25/18 09:18 Dose: 75 mg Famotidine (Pepcid) 20 mg IVP DAILY [facility] Last Admin: 02/25/18 09:19 Dose: 20 mg Finasteride (Proscar) 5 mg PO DAILY [facility] Last Admin: 02/25/18 09:18 Dose: 5 mg Gabapentin (Neurontin) 100 mg PO DAILY [facility] Last Admin: 02/25/18 09:18 Dose: 100 mg Hydralazine HCl (Apresoline) 10 mg PO QID [facility] Last Admin: 02/25/18 22:47 Dose: 10 mg Meropenem 1 gm/ Sodium (Chloride) 100 mls @ 100 mls/hr IVPB Q12H [facility]; Protocol Last Admin: 02/25/18 17:38 Dose: 100 mls/hr Insulin Aspart (Novolog) 0 unit SC ACHS [facility]; Protocol Last Admin: 02/25/18 21:04 Dose: Not Given Lidocaine (Lidoderm) 1 ea TD DAILY [facility] Last Admin: 02/25/18 09:19 Dose: 1 ea Metoprolol Tartrate (Lopressor) 75 mg PO BID [facility] Last Admin: 02/25/18 17:39 Dose: 75 mg Multivitamins/Vitamin C (Multi-Delyn Liquid) 5 ml PO DAILY [facility] Last Admin: 02/25/18 09:19 Dose: 5 ml Rosuvastatin Calcium (Crestor) 5 mg PO HS [facility] Last Admin: 02/25/18 22:48 Dose: 5 mg Sucralfate (Carafate Oral Susp) 1 gm PO QID [facility] Last Admin: 02/25/18 22:47 Dose: 1 gm Tamsulosin HCl (Flomax) 0.4 mg PO DAILY [facility] Last Admin: 02/25/18 09:17 Dose: 0.4 mg Vitamin B Complex/Vit C/Folic Acid (Nephro-Marquez) 1 tab PO 0800 [facility] Last Admin: 02/25/18 08:11 Dose: 1 tab - Labs Labs: 02/25/18 05:08 02/25/18 05:08 PT 19.5 SECONDS (9.7-12.2) H 02/25/18 05:08 INR 1.8 02/25/18 05:08 APTT 35 SECONDS (21-34) H 02/25/18 05:08
[2018-02-26] MEDS: Meropenem 1 GM in Sodium Chloride 0.9% 100 ML IVPB SCH ×2 (04:15→15:48)
[2018-02-26] MEDS: (Novolog) Insulin Aspart, Recombinant 100 u/ml 10 ml vial SC SCH ×4 (07:53→21:26)
[2018-02-26] MEDS: Multivitamin Vitamin B Complex (Nephro-Vite) Tab PO SCH (07:54)
[2018-02-26] MEDS: Sucralfate 1 gm/10 ml Oral Susp UD PO SCH ×4 (09:03→21:26)
[2018-02-26] MEDS: Multiple Vitamins Oral Solution PO SCH (09:03)
[2018-02-26] MEDS: Lidocaine 5% Patch TD SCH (09:04)
--- NOTE | 2018-02-26 15:13 | CP.PCM.PN ---
Subjective - Date & Time of Evaluation Date of Evaluation: 02/26/18 Time of Evaluation: 09:00 - Subjective Subjective: [place] 77[place] and GI Bleed with BRB per rectum Pt takes warfarin and his INR was elevated. Because of hypotension and tachycardia a sepsis alert was activated Urine culture shows ESBL E Coli and infectious disease consulted for this patient cannot provide hx- unknown if he had Lord in [place] Unable to provide any useful Info Patient has been started on Merrem Objective - Vital Signs/Intake and Output Vital Signs (last 24 hours): Temp Pulse Resp BP Pulse Ox 97.3 F L 84 17 122/71 92 L 02/26/18 12:00 02/26/18 14:00 02/26/18 14:00 02/26/18 13:56 02/26/18 14:00 Intake and Output: 02/26/18 02/26/18 06:59 18:59 Intake Total 100 150 Output Total 525 Balance -425 150 - Medications Medications: Current Medications Ascorbic Acid (Vitamin C 500 Mg Tab) 500 mg PO BID [facility] Last Admin: 02/26/18 09:03 Dose: 500 mg Clopidogrel Bisulfate (Plavix) 75 mg PO DAILY [facility] Last Admin: 02/26/18 09:03 Dose: 75 mg Famotidine (Pepcid) 20 mg IVP DAILY [facility] Last Admin: 02/26/18 09:03 Dose: 20 mg Finasteride (Proscar) 5 mg PO DAILY [facility] Last Admin: 02/26/18 09:03 Dose: 5 mg Gabapentin (Neurontin) 100 mg PO DAILY [facility] Last Admin: 02/26/18 09:03 Dose: 100 mg Hydralazine HCl (Apresoline) 10 mg PO QID [facility] Last Admin: 02/26/18 13:59 Dose: 10 mg Meropenem 1 gm/ Sodium (Chloride) 100 mls @ 100 mls/hr IVPB Q12H [facility]; Protocol Last Admin: 02/26/18 04:15 Dose: 100 mls/hr Insulin Aspart (Novolog) 0 unit SC ACHS [facility]; Protocol Last Admin: 02/26/18 11:56 Dose: 1 u Lidocaine (Lidoderm) 1 ea TD DAILY [facility] Last Admin: 02/26/18 09:04 Dose: 1 ea Metoprolol Tartrate (Lopressor) 75 mg PO BID [facility] Last Admin: 02/26/18 09:04 Dose: 75 mg Multivitamins/Vitamin C (Multi-Delyn Liquid) 5 ml PO DAILY [facility] Last Admin: 02/26/18 09:03 Dose: 5 ml Rosuvastatin Calcium (Crestor) 5 mg PO HS [facility] Last Admin: 02/25/18 22:48 Dose: 5 mg Sucralfate (Carafate Oral Susp) 1 gm PO QID [facility] Last Admin: 02/26/18 13:59 Dose: 1 gm Tamsulosin HCl (Flomax) 0.4 mg PO DAILY [facility] Last Admin: 02/26/18 09:03 Dose: 0.4 mg Vitamin B Complex/Vit C/Folic Acid (Nephro-Marquez) 1 tab PO 0800 [facility] Last Admin: 02/26/18 07:54 Dose: 1 tab - Labs Labs: 02/25/18 05:08 02/25/18 05:08 PT 19.5 SECONDS (9.7-12.2) H 02/25/18 05:08 INR 1.8 02/25/18 05:08 APTT 35 SECONDS (21-34) H 02/25/18 05:08 - Constitutional Appears: Confused, Chronically Ill - Head Exam Head Exam: NORMOCEPHALIC - Eye Exam Eye Exam: absent: Scleral icterus - ENT Exam ENT Exam: Mucous Membranes Dry - Neck Exam Neck Exam: absent: Lymphadenopathy - Respiratory Exam Respiratory Exam: Decreased Breath Sounds - Cardiovascular Exam Cardiovascular Exam: REGULAR RHYTHM - GI/Abdominal Exam GI & Abdominal Exam: Distended, Soft - Rectal Exam Rectal Exam: Deferred - Exam Exam: NORMAL INSPECTION - Extremities Exam Extremities Exam: Pedal Edema - Back Exam Back Exam: absent: CVA tenderness (L), CVA tenderness (R) - Neurological Exam Neurological Exam: Altered, CN II-XII Intact - Psychiatric Exam Psychiatric exam: Depressed - Skin Skin Exam: Dry Assessment and Plan (1) Infection due to ESBL-producing Escherichia coli Status: Acute (2) UTI (urinary tract infection) Status: Acute (3) GI bleed Status: Acute (4) Anemia Status: Acute (5) Dementia Status: Acute (6) Diabetes mellitus Status: Acute (7) HLD (hyperlipidemia) Status: Acute (8) Hypothyroid Status: Acute - Assessment and Plan (Free Text) Assessment: [place] 77[place] and GI Bleed with BRB per rectum Pt takes warfarin and his INR was elevated. Because of hypotension and tachycardia a sepsis alert was activated Urine culture shows ESBL E Coli and infectious disease consulted for this patient cannot provide hx- unknown if he had Lord in [place] Unable to provide any useful Info Patient has been started on Merrem
--- NOTE | 2018-02-26 20:11 | CP.PCM.PN ---
Subjective - Date & Time of Evaluation Date of Evaluation: 02/26/18 Time of Evaluation: 08:20 - Subjective Subjective: Patient seen and examined at bedside. No cardiac events noted Physical Examination - Physical Exam Head: Positive for: Atraumatic, Normocephalic Extroacular Muscles: Positive for: EOMI Mouth: Positive for: Dry Respiratory/Chest: Positive for: Clear to Auscultation, Good Air Exchange. Negative for: Respiratory Distress, Accessory Muscle Use Cardiovascular: Positive for: Normal S1, S2, Tachycardic Abdomen: Positive for: Normal Bowel Sounds. Negative for: Tenderness, Distention, Peritoneal Signs Genitourinary Male: Positive for: Other (Paulson in place) Upper Extremity: Positive for: Normal Inspection, Other (upper extremity motor weakness). Negative for: Cyanosis, Edema Lower Extremity: Positive for: Normal Inspection, Other (SCDs in place). Negative for: Edema Neurological: Negative for: Speech Normal Skin: Positive for: Dry, Normal Color. Negative for: Rashes, Diaphoretic Psychiatric: Negative for: Oriented x 3, Normal Insight Assessment/Plan - Assessment and Plan (Free Text) Assessment: Patient is a 77 yo male w/ PMH of HTN, CAD, DM2, Hypothyroidism, HLD, Afib on warfarin admitted for multiple episodes of bright blood per rectum. INR was noted to be elevated. On labs patient was noted to be anemic. 6 units of pRBCs and 2 units of FFP given. Neuro AMS- likely patient baseline from assisted history of stroke- continue plavix as per GI; No aspirin due to concern of recent GI blood loss Pulm No acute issues; maintain o2 sat >90% CV Cardizem drip will be replaced with home lopressor dose Crestor; Warfarin; Repeat INR in AM GI Endoscopy showed clean based ulcers Colonoscopy showed multiple polyps, diverticulosis Bleeding scan no active bleed IV protonix Heme Hgb trended up after 6 units of pRBCs 2 units of FFP given total Goal INR to be therapeutic; Daily INRs; Adjust warfarin as needed Endo ISS ACHS Renal Likely baseline cr 2.0 Chronic paulson for enlarged prostate; U/A- 3+ L.E; 2698 WBCs; Bladder ultrasound pending K repleted via KCl 10meq x 3; Repeat CMP in AM Nephrovite; Multivitamins MSK 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- Gabapentin 100mg tid ID Meropenem; + urine cx for ESBL DVT ppx: Not indicated at this time GI ppx: Protonix IV Dysphagia w/ heart and carb consistency diet Objective - Vital Signs/Intake and Output Vital Signs (last 24 hours): Temp Pulse Resp BP Pulse Ox 97.4 F L 87 19 144/90 95 02/26/18 16:00 02/26/18 17:18 02/26/18 16:00 02/26/18 17:13 02/26/18 16:00 Intake and Output: 02/26/18 02/27/18 18:59 06:59 Intake Total 550 Output Total 350 Balance 200 - Medications Medications: Current Medications Ascorbic Acid (Vitamin C 500 Mg Tab) 500 mg PO BID [facility] Last Admin: 02/26/18 17:13 Dose: 500 mg Clopidogrel Bisulfate (Plavix) 75 mg PO DAILY [facility] Last Admin: 02/26/18 09:03 Dose: 75 mg Famotidine (Pepcid) 20 mg IVP DAILY [facility] Last Admin: 02/26/18 09:03 Dose: 20 mg Finasteride (Proscar) 5 mg PO DAILY [facility] Last Admin: 02/26/18 09:03 Dose: 5 mg Gabapentin (Neurontin) 100 mg PO DAILY [facility] Last Admin: 02/26/18 09:03 Dose: 100 mg Hydralazine HCl (Apresoline) 10 mg PO QID [facility] Last Admin: 02/26/18 17:13 Dose: 10 mg Meropenem 1 gm/ Sodium (Chloride) 100 mls @ 100 mls/hr IVPB Q12H [facility]; Protocol Last Admin: 02/26/18 15:48 Dose: 100 mls/hr Insulin Aspart (Novolog) 0 unit SC ACHS [facility]; Protocol Last Admin: 02/26/18 16:26 Dose: Not Given Lidocaine (Lidoderm) 1 ea TD DAILY [facility] Last Admin: 02/26/18 09:04 Dose: 1 ea Metoprolol Tartrate (Lopressor) 75 mg PO BID [facility] Last Admin: 02/26/18 17:13 Dose: 75 mg Multivitamins/Vitamin C (Multi-Delyn Liquid) 5 ml PO DAILY [facility] Last Admin: 02/26/18 09:03 Dose: 5 ml Rosuvastatin Calcium (Crestor) 5 mg PO HS [facility] Last Admin: 02/25/18 22:48 Dose: 5 mg Sucralfate (Carafate Oral Susp) 1 gm PO QID [facility] Last Admin: 02/26/18 17:13 Dose: 1 gm Tamsulosin HCl (Flomax) 0.4 mg PO DAILY [facility] Last Admin: 02/26/18 09:03 Dose: 0.4 mg Vitamin B Complex/Vit C/Folic Acid (Nephro-Marquez) 1 tab PO 0800 [facility] Last Admin: 02/26/18 07:54 Dose: 1 tab - Labs Labs: 02/25/18 05:08 02/25/18 05:08 PT 19.5 SECONDS (9.7-12.2) H 02/25/18 05:08 INR 1.8 02/25/18 05:08 APTT 35 SECONDS (21-34) H 02/25/18 05:08
[2018-02-27] MEDS: Meropenem 1 GM in Sodium Chloride 0.9% 100 ML IVPB SCH ×2 (04:34→17:46)
[2018-02-27 06:29] LABS: BASO # 0.1 K/uL (0.0-0.2); BASO % 1.2 % (0.0-2.0); EOS # 0.6 K/uL (0.0-0.7); EOS % 11.4 % (0.0-4.0); LYMPH # 1.6 K/uL (1.0-4.3); LYMPH % 29.2 % (20.0-40.0); MEAN CELL VOLUME 90.1 fL (80.0-94.0); MEAN CORPUSCULAR HEMOGLOBIN 30.2 pg (27.0-31.0); MEAN CORPUSCULAR HGB CONC 33.5 g/dL (33.0-37.0); MEAN PLATELET VOLUME 8.5 fL (7.2-11.7); MONO # 0.5 K/uL (0.0-0.8); MONO % 8.8 % (0.0-10.0); NEUT # 2.7 K/uL (1.8-7.0); NEUT % 49.4 % (50.0-75.0); NRBC % 0.1 % (0.0-2.0); RBC 2.97 Mil/uL (4.40-5.90); RED CELL DISTRIBUTION WIDTH 17.4 % (11.5-14.5); WHITE BLOOD COUNT 5.4 K/uL (4.8-10.8)
[2018-02-27 06:31] LABS: INR 2.2; PROTHROMBIN TIME 23.8 SECONDS (9.7-12.2)
[2018-02-27] MEDS: (Novolog) Insulin Aspart, Recombinant 100 u/ml 10 ml vial SC SCH ×4 (07:41→22:23)
[2018-02-27] MEDS: Sucralfate 1 gm/10 ml Oral Susp UD PO SCH ×4 (09:14→21:27)
[2018-02-27] MEDS: Lidocaine 5% Patch TD SCH (09:16)
[2018-02-27] MEDS: Multiple Vitamins Oral Solution PO SCH (09:16)
[2018-02-27] MEDS: Multivitamin Vitamin B Complex (Nephro-Vite) Tab PO SCH (09:17)
--- NOTE | 2018-02-27 13:03 | PN ---
DATE: 02/26/2018 SUBJECTIVE: The patient is awake. His is on the bedside. He is not in any acute distress. He is denying any complaints. PHYSICAL EXAMINATION: VITAL SIGNS: Blood pressure 144/90, pulse 57, respiratory rate 18, and temperature 98.6. LUNGS: Clear. No rales. No rhonchi. CARDIOVASCULAR SYSTEM: S1, S2 regular. ABDOMEN: Soft, nontender. ADDENDUM ASSESSMENT: 1. Urinary tract infection due to Escherichia coli, on Merrem, seen by Infectious Disease. 2. Gastrointestinal bleed, resolved. 3. Atrial fibrillation. 4. Benign prostatic hyperplasia and obstructive uropathy. PLAN: Medical management. Antibiotics. the patient's pelvic ultrasound was done, and the pelvic ultrasound is consistent with enlarged prostate, nondistended bladder with a Lord in place. Kevin Osborne MD
--- NOTE | 2018-02-27 13:04 | VASCLAB ---
Date of service: 02/24/2018 PROCEDURE: Left Upper Extremity Venous Duplex Exam HISTORY: swelling PRIORS: None. TECHNIQUE: Left upper extremity, internal jugular, subclavian, axillary, brachial, ulnar, radial, basilic and upper cephalic veins were evaluated. Flow was assessed with color Doppler, compressibility, assessment of phasic flow and augmentation response. Report prepared by MINO Sanon, RVT FINDINGS: LEFT: 1. Internal Jugular: 1.1. Compressibility - Fully compressible: Thrombus - None : Flow - Phasic: Augmentation -Normal: Reflux - None. 2. Subclavian: 2.1. Compressibility - Fully compressible: Thrombus - None : Flow - Phasic: Augmentation -Normal: Reflux - None. 3. Axillary: 3.1. Compressibility - Fully compressible: Thrombus - None : Flow - Phasic: Augmentation -Normal: Reflux - None. 4. Brachial: 4.1. Compressibility - Fully compressible: Thrombus - None: Flow - Phasic: Augmentation -Normal: Reflux - None. 5. Ulnar: 5.1. Compressibility - Fully compressible: Thrombus - None: Flow - Phasic: Augmentation -Normal: Reflux - None. 6. Radial: 6.1. Compressibility - Fully compressible: Thrombus - None: Flow - Phasic: Augmentation - Normal: Reflux - None. 7. Cephalic: 7.1. Compressibility - Fully compressible: Thrombus - None: Flow - Phasic: Augmentation -Normal: Reflux - None. 8. Basilic: 8.1. Compressibility - Fully compressible: Thrombus - None: Flow - Phasic: Augmentation -Normal: Reflux - None. OTHER FINDINGS: Left: None. IMPRESSION: Left: No evidence of vein thrombosis of the left upper extremity with excellent venous flow. Normal valve function noted of the left side. Normal venous flow noted in the right internal jugular and right subclavian veins.
--- NOTE | 2018-02-27 15:01 | CP.PCM.PN ---
Subjective - Date & Time of Evaluation Date of Evaluation: 02/27/18 Time of Evaluation: 08:00 - Subjective Subjective: weak, lethargic NAD Objective - Vital Signs/Intake and Output Vital Signs (last 24 hours): Temp Pulse Resp BP Pulse Ox 98.2 F 69 14 154/87 H 100 02/27/18 12:00 02/27/18 12:00 02/27/18 12:00 02/27/18 12:00 02/27/18 12:00 Intake and Output: 02/27/18 02/27/18 06:59 18:59 Intake Total 250 Output Total 300 Balance -50 - Medications Medications: Current Medications Ascorbic Acid (Vitamin C 500 Mg Tab) 500 mg PO BID [facility] Last Admin: 02/27/18 09:18 Dose: 500 mg Clopidogrel Bisulfate (Plavix) 75 mg PO DAILY [facility] Last Admin: 02/27/18 09:18 Dose: 75 mg Famotidine (Pepcid) 20 mg IVP DAILY [facility] Last Admin: 02/27/18 09:17 Dose: 20 mg Finasteride (Proscar) 5 mg PO DAILY [facility] Last Admin: 02/27/18 09:18 Dose: 5 mg Gabapentin (Neurontin) 100 mg PO DAILY [facility] Last Admin: 02/27/18 09:17 Dose: 100 mg Heparin Sodium (Porcine) (Heparin) 5,000 units SC Q12 [facility] Last Admin: 02/27/18 09:14 Dose: 5,000 units Hydralazine HCl (Apresoline) 10 mg PO QID [facility] Last Admin: 02/27/18 13:21 Dose: 10 mg Meropenem 1 gm/ Sodium (Chloride) 100 mls @ 100 mls/hr IVPB Q12H [facility]; Protocol Last Admin: 02/27/18 04:34 Dose: 100 mls/hr Insulin Aspart (Novolog) 0 unit SC ACHS [facility]; Protocol Last Admin: 02/27/18 12:01 Dose: Not Given Lidocaine (Lidoderm) 1 ea TD DAILY [facility] Last Admin: 02/27/18 09:16 Dose: 1 ea Metoprolol Tartrate (Lopressor) 75 mg PO BID [facility] Last Admin: 02/27/18 09:16 Dose: 75 mg Multivitamins/Vitamin C (Multi-Delyn Liquid) 5 ml PO DAILY [facility] Last Admin: 02/27/18 09:16 Dose: 5 ml Rosuvastatin Calcium (Crestor) 5 mg PO HS [facility] Last Admin: 02/26/18 21:26 Dose: 5 mg Sucralfate (Carafate Oral Susp) 1 gm PO QID [facility] Last Admin: 02/27/18 13:21 Dose: 1 gm Tamsulosin HCl (Flomax) 0.4 mg PO DAILY [facility] Last Admin: 02/27/18 09:14 Dose: 0.4 mg Vitamin B Complex/Vit C/Folic Acid (Nephro-Marquez) 1 tab PO 0800 [facility] Last Admin: 02/27/18 09:17 Dose: 1 tab - Labs Labs: 02/27/18 06:10 02/25/18 05:08 PT 23.8 SECONDS (9.7-12.2) H 02/27/18 06:10 INR 2.2 02/27/18 06:10 APTT 35 SECONDS (21-34) H 02/25/18 05:08 - Constitutional Appears: Non-toxic, Chronically Ill - Head Exam Head Exam: NORMOCEPHALIC - Eye Exam Eye Exam: absent: Scleral icterus - ENT Exam ENT Exam: Mucous Membranes Dry - Neck Exam Neck Exam: absent: Lymphadenopathy - Respiratory Exam Respiratory Exam: Decreased Breath Sounds - Cardiovascular Exam Cardiovascular Exam: REGULAR RHYTHM - GI/Abdominal Exam GI & Abdominal Exam: Distended, Soft - Rectal Exam Rectal Exam: Deferred - Exam Exam: NORMAL INSPECTION - Extremities Exam Extremities Exam: Pedal Edema - Back Exam Back Exam: absent: CVA tenderness (L), CVA tenderness (R), NORMAL INSPECTION - Neurological Exam Neurological Exam: Altered Assessment and Plan (1) Infection due to ESBL-producing Escherichia coli Status: Acute (2) UTI (urinary tract infection) Status: Acute (3) GI bleed Status: Acute (4) Anemia Status: Acute (5) Dementia Status: Acute (6) Diabetes mellitus Status: Acute (7) HLD (hyperlipidemia) Status: Acute (8) Hypothyroid Status: Acute - Assessment and Plan (Free Text) Assessment: cont IV merrem for now duration TBD
--- NOTE | 2018-02-27 20:33 | CP.PCM.PN ---
Subjective - Date & Time of Evaluation Date of Evaluation: 02/27/18 Time of Evaluation: 07:00 - Subjective Subjective: Patient seen and examined at bedside. Denies chest pain and dyspnea C/O weakness Physical Examination - Physical Exam Head: Positive for: Atraumatic, Normocephalic Extroacular Muscles: Positive for: EOMI Mouth: Positive for: Dry Respiratory/Chest: Positive for: Clear to Auscultation, Good Air Exchange. Negative for: Respiratory Distress, Accessory Muscle Use Cardiovascular: Positive for: Normal S1, S2, Tachycardic Abdomen: Positive for: Normal Bowel Sounds. Negative for: Tenderness, Distention, Peritoneal Signs Genitourinary Male: Positive for: Other (Paulson in place) Upper Extremity: Positive for: Normal Inspection, Other (upper extremity motor weakness). Negative for: Cyanosis, Edema Lower Extremity: Positive for: Normal Inspection, Other (SCDs in place). Negative for: Edema Neurological: Negative for: Speech Normal Skin: Positive for: Dry, Normal Color. Negative for: Rashes, Diaphoretic Psychiatric: Negative for: Oriented x 3, Normal Insight Assessment/Plan - Assessment and Plan (Free Text) Assessment: Patient is a 77 yo male w/ PMH of HTN, CAD, DM2, Hypothyroidism, HLD, Afib on warfarin admitted for multiple episodes of bright blood per rectum. INR was noted to be elevated. On labs patient was noted to be anemic. 6 units of pRBCs and 2 units of FFP given. Neuro AMS- likely patient baseline from long term history of stroke- continue plavix as per GI; No aspirin due to concern of recent GI blood loss Pulm No acute issues; maintain o2 sat >90% CV Cardizem drip will be replaced with home lopressor dose Crestor; Warfarin; Repeat INR in AM GI Endoscopy showed clean based ulcers Colonoscopy showed multiple polyps, diverticulosis Bleeding scan no active bleed IV protonix Heme Hgb trended up after 6 units of pRBCs 2 units of FFP given total Goal INR to be therapeutic; Daily INRs; Adjust warfarin as needed Endo ISS ACHS Renal Likely baseline cr 2.0 Chronic paulson for enlarged prostate; U/A- 3+ L.E; 2698 WBCs; Bladder ultrasound pending K repleted via KCl 10meq x 3; Repeat CMP in AM Nephrovite; Multivitamins MSK 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- Gabapentin 100mg tid ID Meropenem; + urine cx for ESBL DVT ppx: Not indicated at this time GI ppx: Protonix IV Dysphagia w/ heart and carb consistency diet Objective - Vital Signs/Intake and Output Vital Signs (last 24 hours): Temp Pulse Resp BP Pulse Ox 97.8 F 78 18 132/90 98 02/27/18 16:00 02/27/18 18:00 02/27/18 16:00 02/27/18 17:47 02/27/18 16:00 Intake and Output: 02/27/18 02/28/18 18:59 06:59 Intake Total 600 Output Total 425 Balance 175 - Medications Medications: Current Medications Ascorbic Acid (Vitamin C 500 Mg Tab) 500 mg PO BID [facility] Last Admin: 02/27/18 17:47 Dose: 500 mg Clopidogrel Bisulfate (Plavix) 75 mg PO DAILY [facility] Last Admin: 02/27/18 09:18 Dose: 75 mg Famotidine (Pepcid) 20 mg IVP DAILY [facility] Last Admin: 02/27/18 09:17 Dose: 20 mg Finasteride (Proscar) 5 mg PO DAILY [facility] Last Admin: 02/27/18 09:18 Dose: 5 mg Gabapentin (Neurontin) 100 mg PO DAILY [facility] Last Admin: 02/27/18 09:17 Dose: 100 mg Heparin Sodium (Porcine) (Heparin) 5,000 units SC Q12 [facility] Last Admin: 02/27/18 09:14 Dose: 5,000 units Hydralazine HCl (Apresoline) 10 mg PO QID [facility] Last Admin: 02/27/18 17:46 Dose: 10 mg Meropenem 1 gm/ Sodium (Chloride) 100 mls @ 100 mls/hr IVPB Q12H [facility]; Protocol Last Admin: 02/27/18 17:46 Dose: 100 mls/hr Insulin Aspart (Novolog) 0 unit SC ACHS [facility]; Protocol Last Admin: 02/27/18 17:47 Dose: 1 u Lidocaine (Lidoderm) 1 ea TD DAILY [facility] Last Admin: 02/27/18 09:16 Dose: 1 ea Metoprolol Tartrate (Lopressor) 75 mg PO BID [facility] Last Admin: 02/27/18 17:47 Dose: 75 mg Multivitamins/Vitamin C (Multi-Delyn Liquid) 5 ml PO DAILY [facility] Last Admin: 02/27/18 09:16 Dose: 5 ml Rosuvastatin Calcium (Crestor) 5 mg PO HS [facility] Last Admin: 02/26/18 21:26 Dose: 5 mg Sucralfate (Carafate Oral Susp) 1 gm PO QID [facility] Last Admin: 02/27/18 17:47 Dose: 1 gm Tamsulosin HCl (Flomax) 0.4 mg PO DAILY [facility] Last Admin: 02/27/18 09:14 Dose: 0.4 mg Vitamin B Complex/Vit C/Folic Acid (Nephro-Marquez) 1 tab PO 0800 [facility] Last Admin: 02/27/18 09:17 Dose: 1 tab - Labs Labs: 02/27/18 06:10 02/25/18 05:08 PT 23.8 SECONDS (9.7-12.2) H 02/27/18 06:10 INR 2.2 02/27/18 06:10 APTT 35 SECONDS (21-34) H 02/25/18 05:08
--- NOTE | 2018-02-27 22:56 | CP.PCM.PN ---
Subjective - Subjective Subjective: dictated Objective - Vital Signs/Intake and Output Vital Signs (last 24 hours): Temp Pulse Resp BP Pulse Ox 98.9 F 72 19 145/79 100 02/27/18 20:00 02/27/18 20:00 02/27/18 20:00 02/27/18 20:00 02/27/18 20:00 Intake and Output: 02/27/18 02/28/18 18:59 06:59 Intake Total 600 Output Total 425 Balance 175 - Medications Medications: Current Medications Ascorbic Acid (Vitamin C 500 Mg Tab) 500 mg PO BID [facility] Last Admin: 02/27/18 17:47 Dose: 500 mg Clopidogrel Bisulfate (Plavix) 75 mg PO DAILY [facility] Last Admin: 02/27/18 09:18 Dose: 75 mg Famotidine (Pepcid) 20 mg IVP DAILY [facility] Last Admin: 02/27/18 09:17 Dose: 20 mg Finasteride (Proscar) 5 mg PO DAILY [facility] Last Admin: 02/27/18 09:18 Dose: 5 mg Gabapentin (Neurontin) 100 mg PO DAILY [facility] Last Admin: 02/27/18 09:17 Dose: 100 mg Heparin Sodium (Porcine) (Heparin) 5,000 units SC Q12 [facility] Last Admin: 02/27/18 21:27 Dose: 5,000 units Hydralazine HCl (Apresoline) 10 mg PO QID [facility] Last Admin: 02/27/18 21:27 Dose: 10 mg Meropenem 1 gm/ Sodium (Chloride) 100 mls @ 100 mls/hr IVPB Q12H [facility]; Protocol Last Admin: 02/27/18 17:46 Dose: 100 mls/hr Insulin Aspart (Novolog) 0 unit SC ACHS [facility]; Protocol Last Admin: 02/27/18 22:23 Dose: Not Given Lidocaine (Lidoderm) 1 ea TD DAILY [facility] Last Admin: 02/27/18 09:16 Dose: 1 ea Metoprolol Tartrate (Lopressor) 75 mg PO BID [facility] Last Admin: 02/27/18 17:47 Dose: 75 mg Multivitamins/Vitamin C (Multi-Delyn Liquid) 5 ml PO DAILY [facility] Last Admin: 02/27/18 09:16 Dose: 5 ml Rosuvastatin Calcium (Crestor) 5 mg PO HS [facility] Last Admin: 02/27/18 21:27 Dose: 5 mg Sucralfate (Carafate Oral Susp) 1 gm PO QID [facility] Last Admin: 02/27/18 21:27 Dose: 1 gm Tamsulosin HCl (Flomax) 0.4 mg PO DAILY [facility] Last Admin: 02/27/18 09:14 Dose: 0.4 mg Vitamin B Complex/Vit C/Folic Acid (Nephro-Marquez) 1 tab PO 0800 [facility] Last Admin: 02/27/18 09:17 Dose: 1 tab - Labs Labs: 02/27/18 06:10 02/25/18 05:08 PT 23.8 SECONDS (9.7-12.2) H 02/27/18 06:10 INR 2.2 02/27/18 06:10 APTT 35 SECONDS (21-34) H 02/25/18 05:08
[2018-02-28] MEDS: Meropenem 1 GM in Sodium Chloride 0.9% 100 ML IVPB SCH ×2 (04:19→16:11)
[2018-02-28] MEDS: (Novolog) Insulin Aspart, Recombinant 100 u/ml 10 ml vial SC SCH ×4 (07:30→21:44)
[2018-02-28] MEDS: Sucralfate 1 gm/10 ml Oral Susp UD PO SCH ×4 (10:35→21:31)
[2018-02-28] MEDS: Lidocaine 5% Patch TD SCH (10:38)
[2018-02-28] MEDS: Multiple Vitamins Oral Solution PO SCH (10:39)
[2018-02-28] MEDS: Multivitamin Vitamin B Complex (Nephro-Vite) Tab PO SCH (10:39)
[2018-02-28] MEDS: Oxycodone/Acetaminophen 5/325 mg Tab PO PRN ×3 (10:40→21:31)
--- NOTE | 2018-02-28 14:36 | PCM.URO ---
Urology Progress Note - Objective Lab Studies: Reviewed (gu plans : no gu intervention for today pt admitted to icu with gi bleeding . pt had stent inserted in nov 1017 , we are almost at 3 months . most likely we can arrange for out pt treatment full note dictated thanks) Lab Results Last 24 Hours: Laboratory Results - last 24 hr 02/27/18 02/27/18 02/28/18 16:47 21:36 07:43 POC Glucose (mg/dL) 192 H 164 H 154 H 02/28/18 11:10 POC Glucose (mg/dL) 214 H Intake & Output: Intake & Output 02/27/18 02/28/18 02/28/18 18:59 06:59 18:59 Intake Total 600 400 Output Total 425 300 Balance 175 100 Weight 208 lb Intake: Intake, IV Amount 100 100 Right Upper arm 100 100 Oral 500 300 Output: Urine 425 300 Urethral (Lord) 425 300 Other: # Bowel Movements 0 Vital Signs: Vital Signs - 24 hr 02/27/18 02/27/18 02/27/18 16:00 17:47 18:00 Temperature 97.8 F Pulse Rate 82 78 Respiratory 18 Rate Blood Pressure 132/90 132/90 O2 Sat by Pulse 98 Oximetry 02/27/18 02/28/18 02/28/18 20:00 00:00 01:00 Temperature 98.9 F 98.9 F Pulse Rate 72 73 70 Respiratory 19 21 Rate Blood Pressure 145/79 154/81 H O2 Sat by Pulse 100 100 Oximetry 02/28/18 02/28/18 02/28/18 04:00 10:00 10:41 Temperature 98.4 F Pulse Rate 83 69 Respiratory 24 Rate Blood Pressure 127/83 149/85 O2 Sat by Pulse 98 Oximetry 02/28/18 14:25 Temperature Pulse Rate Respiratory Rate Blood Pressure O2 Sat by Pulse 99 Oximetry
--- NOTE | 2018-02-28 21:53 | CP.PCM.PN ---
Subjective - Date & Time of Evaluation Date of Evaluation: 02/28/18 Time of Evaluation: 08:10 - Subjective Subjective: Patient seen and examined at bedside. No cardiac events noted Physical Examination - Physical Exam Head: Positive for: Atraumatic, Normocephalic Extroacular Muscles: Positive for: EOMI Mouth: Positive for: Dry Respiratory/Chest: Positive for: Clear to Auscultation, Good Air Exchange. Negative for: Respiratory Distress, Accessory Muscle Use Cardiovascular: Positive for: Normal S1, S2, Tachycardic Abdomen: Positive for: Normal Bowel Sounds. Negative for: Tenderness, Distention, Peritoneal Signs Genitourinary Male: Positive for: Other (Paulosn in place) Upper Extremity: Positive for: Normal Inspection, Other (upper extremity motor weakness). Negative for: Cyanosis, Edema Lower Extremity: Positive for: Normal Inspection, Other (SCDs in place). Negative for: Edema Neurological: Negative for: Speech Normal Skin: Positive for: Dry, Normal Color. Negative for: Rashes, Diaphoretic Psychiatric: Negative for: Oriented x 3, Normal Insight Assessment/Plan - Assessment and Plan (Free Text) Assessment: Patient is a 77 yo male w/ PMH of HTN, CAD, DM2, Hypothyroidism, HLD, Afib on warfarin admitted for multiple episodes of bright blood per rectum. INR was noted to be elevated. On labs patient was noted to be anemic. 6 units of pRBCs and 2 units of FFP given. Neuro AMS- likely patient baseline from half-way history of stroke- continue plavix as per GI; No aspirin due to concern of recent GI blood loss Pulm No acute issues; maintain o2 sat >90% CV Cardizem drip will be replaced with home lopressor dose Crestor; Warfarin; Repeat INR in AM GI Endoscopy showed clean based ulcers Colonoscopy showed multiple polyps, diverticulosis Bleeding scan no active bleed IV protonix Heme Hgb trended up after 6 units of pRBCs 2 units of FFP given total Goal INR to be therapeutic; Daily INRs; Adjust warfarin as needed Endo ISS ACHS Renal Likely baseline cr 2.0 Chronic paulson for enlarged prostate; U/A- 3+ L.E; 2698 WBCs; Bladder ultrasound pending K repleted via KCl 10meq x 3; Repeat CMP in AM Nephrovite; Multivitamins MSK 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- Gabapentin 100mg tid ID Meropenem; + urine cx for ESBL DVT ppx: Not indicated at this time GI ppx: Protonix IV Dysphagia w/ heart and carb consistency diet Objective - Vital Signs/Intake and Output Vital Signs (last 24 hours): Temp Pulse Resp BP Pulse Ox 97.6 F 61 20 117/66 98 02/28/18 20:00 02/28/18 18:00 02/28/18 16:00 02/28/18 17:33 02/28/18 16:00 Intake and Output: 02/28/18 03/01/18 18:59 06:59 Intake Total 450 Output Total 350 Balance 100 - Medications Medications: Current Medications Ascorbic Acid (Vitamin C 500 Mg Tab) 500 mg PO BID [facility] Last Admin: 02/28/18 17:33 Dose: Not Given Clopidogrel Bisulfate (Plavix) 75 mg PO DAILY [facility] Last Admin: 02/28/18 10:36 Dose: 75 mg Famotidine (Pepcid) 20 mg IVP DAILY [facility] Last Admin: 02/28/18 10:36 Dose: 20 mg Finasteride (Proscar) 5 mg PO DAILY [facility] Last Admin: 02/28/18 10:44 Dose: 5 mg Gabapentin (Neurontin) 100 mg PO DAILY [facility] Last Admin: 02/28/18 10:42 Dose: 100 mg Heparin Sodium (Porcine) (Heparin) 5,000 units SC Q12 [facility] Last Admin: 02/28/18 21:31 Dose: 5,000 units Hydralazine HCl (Apresoline) 10 mg PO QID [facility] Last Admin: 02/28/18 21:37 Dose: 10 mg Meropenem 1 gm/ Sodium (Chloride) 100 mls @ 100 mls/hr IVPB Q12H [facility]; Protocol Last Admin: 02/28/18 16:11 Dose: 100 mls/hr Insulin Aspart (Novolog) 0 unit SC ACHS [facility]; Protocol Last Admin: 02/28/18 21:44 Dose: Not Given Lidocaine (Lidoderm) 1 ea TD DAILY [facility] Last Admin: 02/28/18 10:38 Dose: 1 ea Metoprolol Tartrate (Lopressor) 75 mg PO BID [facility] Last Admin: 02/28/18 17:33 Dose: 75 mg Multivitamins/Vitamin C (Multi-Delyn Liquid) 5 ml PO DAILY [facility] Last Admin: 02/28/18 10:39 Dose: 5 ml Oxycodone/Acetaminophen (Percocet 5/325 Mg Tab) 1 tab PO Q4H PRN PRN Reason: Pain Stop: 03/03/18 10:28 Last Admin: 02/28/18 21:31 Dose: 1 tab Rosuvastatin Calcium (Crestor) 5 mg PO HS [facility] Last Admin: 02/28/18 21:31 Dose: 5 mg Sucralfate (Carafate Oral Susp) 1 gm PO QID [facility] Last Admin: 02/28/18 21:31 Dose: 1 gm Tamsulosin HCl (Flomax) 0.4 mg PO DAILY [facility] Last Admin: 02/28/18 10:40 Dose: 0.4 mg Vitamin B Complex/Vit C/Folic Acid (Nephro-Marquez) 1 tab PO 0800 [facility] Last Admin: 02/28/18 10:39 Dose: 1 tab - Labs Labs: 02/27/18 06:10 02/25/18 05:08 PT 23.8 SECONDS (9.7-12.2) H 02/27/18 06:10 INR 2.2 02/27/18 06:10 APTT 35 SECONDS (21-34) H 02/25/18 05:08
--- NOTE | 2018-02-28 23:25 | CP.PCM.PN ---
Subjective - Subjective Subjective: dictated Objective - Vital Signs/Intake and Output Vital Signs (last 24 hours): Temp Pulse Resp BP Pulse Ox 97.6 F 61 20 117/66 98 02/28/18 20:00 02/28/18 18:00 02/28/18 16:00 02/28/18 17:33 02/28/18 16:00 Intake and Output: 02/28/18 03/01/18 18:59 06:59 Intake Total 450 Output Total 350 Balance 100 - Medications Medications: Current Medications Ascorbic Acid (Vitamin C 500 Mg Tab) 500 mg PO BID [facility] Last Admin: 02/28/18 17:33 Dose: Not Given Clopidogrel Bisulfate (Plavix) 75 mg PO DAILY [facility] Last Admin: 02/28/18 10:36 Dose: 75 mg Famotidine (Pepcid) 20 mg IVP DAILY [facility] Last Admin: 02/28/18 10:36 Dose: 20 mg Finasteride (Proscar) 5 mg PO DAILY [facility] Last Admin: 02/28/18 10:44 Dose: 5 mg Gabapentin (Neurontin) 100 mg PO DAILY [facility] Last Admin: 02/28/18 10:42 Dose: 100 mg Heparin Sodium (Porcine) (Heparin) 5,000 units SC Q12 [facility] Last Admin: 02/28/18 21:31 Dose: 5,000 units Hydralazine HCl (Apresoline) 10 mg PO QID [facility] Last Admin: 02/28/18 21:37 Dose: 10 mg Meropenem 1 gm/ Sodium (Chloride) 100 mls @ 100 mls/hr IVPB Q12H [facility]; Protocol Last Admin: 02/28/18 16:11 Dose: 100 mls/hr Insulin Aspart (Novolog) 0 unit SC ACHS [facility]; Protocol Last Admin: 02/28/18 21:44 Dose: Not Given Lidocaine (Lidoderm) 1 ea TD DAILY [facility] Last Admin: 02/28/18 10:38 Dose: 1 ea Metoprolol Tartrate (Lopressor) 75 mg PO BID [facility] Last Admin: 02/28/18 17:33 Dose: 75 mg Multivitamins/Vitamin C (Multi-Delyn Liquid) 5 ml PO DAILY [facility] Last Admin: 02/28/18 10:39 Dose: 5 ml Oxycodone/Acetaminophen (Percocet 5/325 Mg Tab) 1 tab PO Q4H PRN PRN Reason: Pain Stop: 03/03/18 10:28 Last Admin: 02/28/18 21:31 Dose: 1 tab Rosuvastatin Calcium (Crestor) 5 mg PO HS [facility] Last Admin: 02/28/18 21:31 Dose: 5 mg Sucralfate (Carafate Oral Susp) 1 gm PO QID [facility] Last Admin: 02/28/18 21:31 Dose: 1 gm Tamsulosin HCl (Flomax) 0.4 mg PO DAILY [facility] Last Admin: 02/28/18 10:40 Dose: 0.4 mg Vitamin B Complex/Vit C/Folic Acid (Nephro-Marquez) 1 tab PO 0800 [facility] Last Admin: 02/28/18 10:39 Dose: 1 tab - Labs Labs: 02/27/18 06:10 02/25/18 05:08 PT 23.8 SECONDS (9.7-12.2) H 02/27/18 06:10 INR 2.2 02/27/18 06:10 APTT 35 SECONDS (21-34) H 02/25/18 05:08
--- NOTE | 2018-03-01 00:25 | PN ---
DATE: 02/28/2018 SUBJECTIVE: We will consult Urology for stent removal. He is afebrile. He is more alert. He is weak. He is drowsy. He feels high blood pressure. PHYSICAL EXAMINATION: VITAL SIGNS: Blood pressure 132/90, pulse 82, respiratory rate 18, and temperature 97.8. LUNGS: Clear. No rales. No rhonchi. CARDIOVASCULAR SYSTEM: S1 and S2, regular. ABDOMEN: Soft and nontender. Bowel sounds are positive. ASSESSMENT: 1. Gastrointestinal bleed, resolved. 2. Obstructive uropathy with urinary tract infection. The patient is on meropenem. 3. Hypertension. 4. Anemia due to gastrointestinal bleed. PLAN: Continue antibiotics. ICU. Monitor the patient. Kevin Osborne MD
--- NOTE | 2018-03-01 01:15 | PN ---
DATE: 02/28/2018 SUBJECTIVE: The patient is afebrile. The patient seen today on 02/28/2018. PHYSICAL EXAMINATION: VITAL SIGNS: Blood pressure 117/66, pulse 60, respiratory rate 20, temperature 97.6. LUNGS: Clear. No rales. No rhonchi. CARDIOVASCULAR SYSTEM: S1 and S2, regular. ABDOMEN: Soft and nontender. Bowel sounds are positive. ASSESSMENT: 1. Urinary tract infection due to Escherichia coli, on antibiotics. 2. Gastrointestinal bleed, resolved. 3. Hypertension. 4. Obstructive uropathy. PLAN: Continue current medications. Monitor the patient. Kevin Osborne MD
[2018-03-01] MEDS: Meropenem 1 GM in Sodium Chloride 0.9% 100 ML IVPB SCH ×2 (04:10→17:04)
[2018-03-01] MEDS: (Novolog) Insulin Aspart, Recombinant 100 u/ml 10 ml vial SC SCH ×4 (08:15→22:30)
[2018-03-01] MEDS: Multivitamin Vitamin B Complex (Nephro-Vite) Tab PO SCH (08:28)
[2018-03-01] MEDS: Sucralfate 1 gm/10 ml Oral Susp UD PO SCH ×4 (10:06→22:45)
[2018-03-01] MEDS: Multiple Vitamins Oral Solution PO SCH (10:14)
[2018-03-01] MEDS: Lidocaine 5% Patch TD SCH (10:14)
--- NOTE | 2018-03-01 14:23 | CP.PCM.PN ---
<Jazmyne Ackerman - Last Filed: 03/01/18 14:20> Subjective - Date & Time of Evaluation Date of Evaluation: 03/01/18 Time of Evaluation: 14:20 - Subjective Subjective: Progress note for cardiology Pt seen and examined at bedside. No acute events overnight. Pt is resting comfortably this am and is pleasantly answering questions. Denies having any CP, difficulty breathing, abdominal pain, LE pain. Objective - Vital Signs/Intake and Output Vital Signs (last 24 hours): Temp Pulse Resp BP Pulse Ox 97.5 F L 82 20 151/110 H 100 03/01/18 08:00 03/01/18 10:00 03/01/18 08:00 03/01/18 10:10 03/01/18 08:00 Intake and Output: 03/01/18 03/01/18 06:59 18:59 Intake Total 300 360 Output Total 400 85 Balance -100 275 - Medications Medications: Current Medications Ascorbic Acid (Vitamin C 500 Mg Tab) 500 mg PO BID [facility] Last Admin: 03/01/18 10:00 Dose: 500 mg Clopidogrel Bisulfate (Plavix) 75 mg PO DAILY [facility] Last Admin: 03/01/18 10:10 Dose: 75 mg Famotidine (Pepcid) 20 mg IVP DAILY [facility] Last Admin: 03/01/18 10:15 Dose: 20 mg Finasteride (Proscar) 5 mg PO DAILY [facility] Last Admin: 03/01/18 10:10 Dose: 5 mg Gabapentin (Neurontin) 100 mg PO DAILY [facility] Last Admin: 03/01/18 10:10 Dose: 100 mg Heparin Sodium (Porcine) (Heparin) 5,000 units SC Q12 [facility] Last Admin: 03/01/18 10:14 Dose: 5,000 units Hydralazine HCl (Apresoline) 10 mg PO QID [facility] Last Admin: 03/01/18 14:02 Dose: 10 mg Meropenem 1 gm/ Sodium (Chloride) 100 mls @ 100 mls/hr IVPB Q12H [facility]; Protocol Last Admin: 03/01/18 04:10 Dose: 100 mls/hr Insulin Aspart (Novolog) 0 unit SC ACHS [facility]; Protocol Last Admin: 03/01/18 12:00 Dose: 1 u Lidocaine (Lidoderm) 1 ea TD DAILY [facility] Last Admin: 03/01/18 10:14 Dose: 1 ea Metoprolol Tartrate (Lopressor) 75 mg PO BID [facility] Last Admin: 03/01/18 10:10 Dose: 75 mg Multivitamins/Vitamin C (Multi-Delyn Liquid) 5 ml PO DAILY [facility] Last Admin: 03/01/18 10:14 Dose: 5 ml Oxycodone/Acetaminophen (Percocet 5/325 Mg Tab) 1 tab PO Q4H PRN PRN Reason: Pain Stop: 03/03/18 10:28 Last Admin: 02/28/18 21:31 Dose: 1 tab Rosuvastatin Calcium (Crestor) 5 mg PO HS [facility] Last Admin: 02/28/18 21:31 Dose: 5 mg Sucralfate (Carafate Oral Susp) 1 gm PO QID [facility] Last Admin: 03/01/18 14:02 Dose: 1 gm Tamsulosin HCl (Flomax) 0.4 mg PO DAILY [facility] Last Admin: 03/01/18 14:02 Dose: 0.4 mg Vitamin B Complex/Vit C/Folic Acid (Nephro-Marquez) 1 tab PO 0800 [facility] Last Admin: 03/01/18 08:28 Dose: 1 tab - Labs Labs: 02/27/18 06:10 02/25/18 05:08 PT 23.8 SECONDS (9.7-12.2) H 02/27/18 06:10 INR 2.2 02/27/18 06:10 APTT 35 SECONDS (21-34) H 02/25/18 05:08 - Constitutional Appears: Non-toxic, No Acute Distress - Head Exam Head Exam: ATRAUMATIC, NORMOCEPHALIC - ENT Exam ENT Exam: Mucous Membranes Moist - Respiratory Exam Respiratory Exam: Clear to Ausculation Bilateral. absent: Rales, Rhonchi, Wheezes - Cardiovascular Exam Cardiovascular Exam: REGULAR RHYTHM, +S1, +S2 - GI/Abdominal Exam GI & Abdominal Exam: Soft, Normal Bowel Sounds. absent: Distended, Firm, Guarding, Rigid, Tenderness, Organomegaly - Extremities Exam Extremities Exam: Pedal Edema (trace B/L ) - Neurological Exam Neurological Exam: absent: Oriented x3 - Skin Skin Exam: Dry, Intact, Normal Color, Warm Assessment and Plan - Assessment and Plan (Free Text) Assessment: 77 year old male with past medical history of HTN, CAD, DM, hypothyroidism, HLD, A fib admitted ot hospital for multiple episodes of BRB per rectum. Cardiology [place] [address] on admission. CHF exacerbation - No clinical signs of CHF today. Will continue to monitor CAD - Continue lopressor - Continue crestor - Continue plavix Afib - Rate controlled with lopressor - Anticoagulated with warfarin. Monitor INR and maintain therapeutic range GI bleed - s/p prbc transfusions - management per medicine team Case discussed with attending, Dr. Gipson <Jose Gipson - Last Filed: 03/01/18 20:16> Objective - Vital Signs/Intake and Output Vital Signs (last 24 hours): Temp Pulse Resp BP Pulse Ox 98.2 F 78 20 146/81 100 03/01/18 16:00 03/01/18 18:00 03/01/18 16:00 03/01/18 18:25 03/01/18 16:00 Intake and Output: 03/01/18 03/02/18 18:59 06:59 Intake Total 460 Output Total 385 Balance 75 - Medications Medications: Current Medications Acetaminophen (Tylenol 325mg Tab) 650 mg PO Q6 PRN PRN Reason: pain Last Admin: 03/01/18 18:16 Dose: 650 mg Ascorbic Acid (Vitamin C 500 Mg Tab) 500 mg PO BID [facility] Last Admin: 03/01/18 18:31 Dose: 500 mg Clopidogrel Bisulfate (Plavix) 75 mg PO DAILY [facility] Last Admin: 03/01/18 10:10 Dose: 75 mg Docusate Sodium (Colace) 100 mg PO TID [facility] Last Admin: 03/01/18 18:25 Dose: 100 mg Famotidine (Pepcid) 20 mg IVP DAILY [facility] Last Admin: 03/01/18 10:15 Dose: 20 mg Finasteride (Proscar) 5 mg PO DAILY [facility] Last Admin: 03/01/18 10:10 Dose: 5 mg Gabapentin (Neurontin) 100 mg PO DAILY [facility] Last Admin: 03/01/18 10:10 Dose: 100 mg Heparin Sodium (Porcine) (Heparin) 5,000 units SC Q12 [facility] Last Admin: 03/01/18 10:14 Dose: 5,000 units Hydralazine HCl (Apresoline) 10 mg PO QID [facility] Last Admin: 03/01/18 18:26 Dose: 10 mg Meropenem 1 gm/ Sodium (Chloride) 100 mls @ 100 mls/hr IVPB Q12H [facility]; Protocol Last Admin: 03/01/18 17:04 Dose: 100 mls/hr Insulin Aspart (Novolog) 0 unit SC ACHS [facility]; Protocol Last Admin: 03/01/18 17:04 Dose: 2 u Lidocaine (Lidoderm) 1 ea TD DAILY [facility] Last Admin: 03/01/18 10:14 Dose: 1 ea Metoprolol Tartrate (Lopressor) 75 mg PO BID [facility] Last Admin: 03/01/18 18:25 Dose: 75 mg Multivitamins/Vitamin C (Multi-Delyn Liquid) 5 ml PO DAILY [facility] Last Admin: 03/01/18 10:14 Dose: 5 ml Neomycin/Polymyxin/Bacitracin (Neosporin Triple Antibiotic Oint) 0 gm TOP BID [facility] Last Admin: 03/01/18 18:24 Dose: 1 applic Oxycodone/Acetaminophen (Percocet 5/325 Mg Tab) 1 tab PO Q4H PRN PRN Reason: Pain Stop: 03/03/18 10:28 Last Admin: 02/28/18 21:31 Dose: 1 tab Rosuvastatin Calcium (Crestor) 5 mg PO HS [facility] Last Admin: 02/28/18 21:31 Dose: 5 mg Sucralfate (Carafate Oral Susp) 1 gm PO QID [facility] Last Admin: 03/01/18 18:25 Dose: Not Given Tamsulosin HCl (Flomax) 0.4 mg PO DAILY [facility] Last Admin: 03/01/18 14:02 Dose: 0.4 mg Vitamin B Complex/Vit C/Folic Acid (Nephro-Marquez) 1 tab PO 0800 [facility] Last Admin: 03/01/18 08:28 Dose: 1 tab - Labs Labs: 03/01/18 15:35 03/01/18 15:35 PT 23.8 SECONDS (9.7-12.2) H 02/27/18 06:10 INR 2.2 02/27/18 06:10 APTT 35 SECONDS (21-34) H 02/25/18 05:08 Assessment and Plan - Assessment and Plan (Free Text) Assessment: Patient seen and evaluated personally by me. Plan of care d/w the medical file clerk and as documented
--- NOTE | 2018-03-01 14:26 | CON ---
DATE: 02/28/2018 UROLOGY CONSULT REASON FOR CONSULTATION: Further management of "a stent." History is mostly from the chart and from the patient as best as possible. In brief as follows, the patient is a very pleasant 77-year-old, he came in under the care of Dr. Osborne. He came in with a GI bleed. He was anemic, transfused. He is in the intensive care unit currently, but he is just being held there. He has apparently been transferred already to telemetry. From a urology standpoint, apparently they noted a stent. Further review of the records in the chart is that in 11/2017, patient was seen by Dr. Arleth Martinez. At that time, he had left hydronephrosis, there is a cysto noted in the chart. At that time, he had a stent inserted with further plans for followup. In the interim, the patient is apparently also not having any major urinary complaints related to this. He just need a followup, a three-month followup, which will be coming up soon. See the plans listed below. PAST MEDICAL AND SURGICAL HISTORY: As listed on the chart. Otherwise unremarkable. Nothing from urological standpoint. See the previous cysto notes. progress notes. MEDICATIONS: See the chart. ALLERGIES: . PHYSICAL EXAMINATION: GENERAL: He is currently resting comfortably in the bed. Family at the bedside. He is still currently as mentioned in bed 1 here in the ICU, but he is just being held and he is being transferred. The labs are noted in the chart. BUN and creatinine noted. DIAGNOSES: 1. Hematuria. 2. Voiding dysfunction. 3. Hydronephrosis on the left side. The patient is status post a cysto, biopsy, fulguration and a left retrograde and left stent insertion for hydronephrosis. He is almost that about 3 months. So he needs some followup. Whether this is done during this hospital stay or most likely will be done as an outpatient, again as mentioned, the patient came in with a GI bleed. Was noted incidentally to have the stent still in place. It is almost about three months. So, it will be appropriate at some point soon to reevaluate the presence of hydronephrosis. PLAN: Plan for now is as follows. No urology intervention today. We will continue to follow the patient. Further plans will follow. Grey Martinez MD
[2018-03-01 15:40] LABS: BASO # 0.1 K/uL (0.0-0.2); BASO % 1.5 % (0.0-2.0); EOS # 0.4 K/uL (0.0-0.7); EOS % 7.8 % (0.0-4.0); HEMOGLOBIN 9.2 g/dL (12.0-18.0); LYMPH # 1.2 K/uL (1.0-4.3); MEAN CELL VOLUME 90.5 fL (80.0-94.0); MEAN CORPUSCULAR HGB CONC 33.2 g/dL (33.0-37.0); MEAN PLATELET VOLUME 8.3 fL (7.2-11.7); MONO # 0.5 K/uL (0.0-0.8); MONO % 8.1 % (0.0-10.0); NEUT # 3.5 K/uL (1.8-7.0); NEUT % 61.6 % (50.0-75.0); RBC 3.05 Mil/uL (4.40-5.90); RED CELL DISTRIBUTION WIDTH 17.8 % (11.5-14.5); WHITE BLOOD COUNT 5.7 K/uL (4.8-10.8)
[2018-03-01 15:53] LABS: ALB/GLOB RATIO 0.8 (1.0-2.1); ALBUMIN 2.5 g/dL (3.5-5.0); CALCIUM 8.1 mg/dl (8.6-10.4)
--- NOTE | 2018-03-01 15:57 | CP.PCM.PN ---
Subjective - Date & Time of Evaluation Date of Evaluation: 03/01/18 Time of Evaluation: 09:00 - Subjective Subjective: lying in bed in NAD Objective - Vital Signs/Intake and Output Vital Signs (last 24 hours): Temp Pulse Resp BP Pulse Ox 97.2 F L 78 22 153/89 H 100 03/01/18 12:00 03/01/18 12:00 03/01/18 12:00 03/01/18 12:00 03/01/18 12:00 Intake and Output: 03/01/18 03/01/18 06:59 18:59 Intake Total 300 360 Output Total 400 85 Balance -100 275 - Medications Medications: Current Medications Ascorbic Acid (Vitamin C 500 Mg Tab) 500 mg PO BID [facility] Last Admin: 03/01/18 10:00 Dose: 500 mg Clopidogrel Bisulfate (Plavix) 75 mg PO DAILY [facility] Last Admin: 03/01/18 10:10 Dose: 75 mg Famotidine (Pepcid) 20 mg IVP DAILY [facility] Last Admin: 03/01/18 10:15 Dose: 20 mg Finasteride (Proscar) 5 mg PO DAILY [facility] Last Admin: 03/01/18 10:10 Dose: 5 mg Gabapentin (Neurontin) 100 mg PO DAILY [facility] Last Admin: 03/01/18 10:10 Dose: 100 mg Heparin Sodium (Porcine) (Heparin) 5,000 units SC Q12 [facility] Last Admin: 03/01/18 10:14 Dose: 5,000 units Hydralazine HCl (Apresoline) 10 mg PO QID [facility] Last Admin: 03/01/18 14:02 Dose: 10 mg Meropenem 1 gm/ Sodium (Chloride) 100 mls @ 100 mls/hr IVPB Q12H [facility]; Protocol Last Admin: 03/01/18 04:10 Dose: 100 mls/hr Insulin Aspart (Novolog) 0 unit SC ACHS [facility]; Protocol Last Admin: 03/01/18 12:00 Dose: 1 u Lidocaine (Lidoderm) 1 ea TD DAILY [facility] Last Admin: 03/01/18 10:14 Dose: 1 ea Metoprolol Tartrate (Lopressor) 75 mg PO BID [facility] Last Admin: 03/01/18 10:10 Dose: 75 mg Multivitamins/Vitamin C (Multi-Delyn Liquid) 5 ml PO DAILY [facility] Last Admin: 03/01/18 10:14 Dose: 5 ml Oxycodone/Acetaminophen (Percocet 5/325 Mg Tab) 1 tab PO Q4H PRN PRN Reason: Pain Stop: 03/03/18 10:28 Last Admin: 02/28/18 21:31 Dose: 1 tab Rosuvastatin Calcium (Crestor) 5 mg PO HS [facility] Last Admin: 02/28/18 21:31 Dose: 5 mg Sucralfate (Carafate Oral Susp) 1 gm PO QID [facility] Last Admin: 03/01/18 14:02 Dose: 1 gm Tamsulosin HCl (Flomax) 0.4 mg PO DAILY [facility] Last Admin: 03/01/18 14:02 Dose: 0.4 mg Vitamin B Complex/Vit C/Folic Acid (Nephro-Marquez) 1 tab PO 0800 [facility] Last Admin: 03/01/18 08:28 Dose: 1 tab - Labs Labs: 03/01/18 15:35 03/01/18 15:35 PT 23.8 SECONDS (9.7-12.2) H 02/27/18 06:10 INR 2.2 02/27/18 06:10 APTT 35 SECONDS (21-34) H 02/25/18 05:08 - Constitutional Appears: Non-toxic, Chronically Ill - Head Exam Head Exam: NORMOCEPHALIC - Eye Exam Eye Exam: absent: Scleral icterus - ENT Exam ENT Exam: Mucous Membranes Dry - Neck Exam Neck Exam: absent: Lymphadenopathy - Respiratory Exam Respiratory Exam: Decreased Breath Sounds - Cardiovascular Exam Cardiovascular Exam: REGULAR RHYTHM - GI/Abdominal Exam GI & Abdominal Exam: Distended, Soft - Rectal Exam Rectal Exam: Deferred - Exam Exam: NORMAL INSPECTION - Extremities Exam Extremities Exam: Pedal Edema - Back Exam Back Exam: absent: CVA tenderness (L), CVA tenderness (R) Assessment and Plan (1) Infection due to ESBL-producing Escherichia coli Status: Acute (2) UTI (urinary tract infection) Status: Acute (3) GI bleed Status: Acute (4) Anemia Status: Acute (5) Dementia Status: Acute (6) Diabetes mellitus Status: Acute (7) HLD (hyperlipidemia) Status: Acute (8) Hypothyroid Status: Acute - Assessment and Plan (Free Text) Assessment: cont iv rx as ordered
[2018-03-01] MEDS: Bacitracin/Neomycin/Polymyxin Oint(30GM) TOP SCH (18:24)
[2018-03-01] MEDS: Oxycodone/Acetaminophen 5/325 mg Tab PO PRN (21:20)
--- NOTE | 2018-03-01 23:05 | CP.PCM.PN ---
Subjective - Subjective Subjective: dictated Objective - Vital Signs/Intake and Output Vital Signs (last 24 hours): Temp Pulse Resp BP Pulse Ox 97.6 F 75 22 146/81 100 03/01/18 20:00 03/01/18 20:00 03/01/18 20:00 03/01/18 20:00 03/01/18 20:00 Intake and Output: 03/01/18 03/02/18 18:59 06:59 Intake Total 460 Output Total 385 Balance 75 - Medications Medications: Current Medications Acetaminophen (Tylenol 325mg Tab) 650 mg PO Q6 PRN PRN Reason: pain Last Admin: 03/01/18 18:16 Dose: 650 mg Ascorbic Acid (Vitamin C 500 Mg Tab) 500 mg PO BID [facility] Last Admin: 03/01/18 18:31 Dose: 500 mg Clopidogrel Bisulfate (Plavix) 75 mg PO DAILY [facility] Last Admin: 03/01/18 10:10 Dose: 75 mg Docusate Sodium (Colace) 100 mg PO TID [facility] Last Admin: 03/01/18 18:25 Dose: 100 mg Famotidine (Pepcid) 20 mg IVP DAILY [facility] Last Admin: 03/01/18 10:15 Dose: 20 mg Finasteride (Proscar) 5 mg PO DAILY [facility] Last Admin: 03/01/18 10:10 Dose: 5 mg Gabapentin (Neurontin) 100 mg PO DAILY [facility] Last Admin: 03/01/18 10:10 Dose: 100 mg Hydralazine HCl (Apresoline) 10 mg PO QID [facility] Last Admin: 03/01/18 22:44 Dose: 10 mg Meropenem 1 gm/ Sodium (Chloride) 100 mls @ 100 mls/hr IVPB Q12H [facility]; Protocol Last Admin: 03/01/18 17:04 Dose: 100 mls/hr Insulin Aspart (Novolog) 0 unit SC ACHS [facility]; Protocol Last Admin: 03/01/18 22:30 Dose: Not Given Lidocaine (Lidoderm) 1 ea TD DAILY [facility] Last Admin: 03/01/18 10:14 Dose: 1 ea Metoprolol Tartrate (Lopressor) 75 mg PO BID [facility] Last Admin: 03/01/18 18:25 Dose: 75 mg Multivitamins/Vitamin C (Multi-Delyn Liquid) 5 ml PO DAILY [facility] Last Admin: 03/01/18 10:14 Dose: 5 ml Neomycin/Polymyxin/Bacitracin (Neosporin Triple Antibiotic Oint) 0 gm TOP BID [facility] Last Admin: 03/01/18 18:24 Dose: 1 applic Oxycodone/Acetaminophen (Percocet 5/325 Mg Tab) 1 tab PO Q4H PRN PRN Reason: Pain Stop: 03/03/18 10:28 Last Admin: 03/01/18 21:20 Dose: 1 tab Rosuvastatin Calcium (Crestor) 5 mg PO HS [facility] Last Admin: 03/01/18 22:43 Dose: 5 mg Sucralfate (Carafate Oral Susp) 1 gm PO QID [facility] Last Admin: 03/01/18 22:45 Dose: 1 gm Tamsulosin HCl (Flomax) 0.4 mg PO DAILY [facility] Last Admin: 03/01/18 14:02 Dose: 0.4 mg Vitamin B Complex/Vit C/Folic Acid (Nephro-Marquez) 1 tab PO 0800 [facility] Last Admin: 03/01/18 08:28 Dose: 1 tab - Labs Labs: 03/01/18 15:35 03/01/18 15:35 PT 23.8 SECONDS (9.7-12.2) H 02/27/18 06:10 INR 2.2 02/27/18 06:10 APTT 35 SECONDS (21-34) H 02/25/18 05:08
--- NOTE | 2018-03-02 02:32 | PN ---
DATE: 03/01/2018 SUBJECTIVE: The patient is afebrile. No hematuria. Off telemetry. No nausea or vomiting. PHYSICAL EXAMINATION: VITAL SIGNS: Blood pressure 146/81, pulse 75, respiratory rate 22, temperature 99.6. LUNGS: Clear. CARDIOVASCULAR SYSTEM: S1 and S2 are regular. ABDOMEN: Soft and nontender. ASSESSMENT: 1. Hematuria, resolved. Status post urological evaluation. The patient is not a candidate for any intervention at this time. 2. Gastrointestinal bleed. The patient is off Coumadin. The patient's hemoglobin and hematocrit are stable. 3. Benign prostatic hyperplasia with obstructive uropathy. 4. Hypertension. PLAN: Continue to monitor antibiotics, H and H, physical therapy, rehab. Discontinue telemetry. Kevin Osborne MD
[2018-03-02] MEDS: Meropenem 1 GM in Sodium Chloride 0.9% 100 ML IVPB SCH ×2 (05:00→16:22)
[2018-03-02] MEDS: (Novolog) Insulin Aspart, Recombinant 100 u/ml 10 ml vial SC SCH ×2 (08:04→12:04)
[2018-03-02] MEDS ORDERED: Metoprolol 1 mg/ml Inj IVP ONE (08:19)
[2018-03-02] MEDS ORDERED: Iohexol 240 (50 ml) ONE (09:31)
[2018-03-02] MEDS ORDERED: cefTRIAXone 1 gm 0 GM/0 ML BAG IVPB ONE (09:31)
[2018-03-02] MEDS ORDERED: Lidocaine 2% Jelly (Uro-Jet) ONE (09:31)
[2018-03-02] MEDS ORDERED: Propofol 10 mg/ml Inj (20 ML) ONE (10:11)
[2018-03-02] MEDS ORDERED: Midazolam 2 MG/2 ML VIAL ONE (10:11)
--- NOTE | 2018-03-02 11:26 | PCM.URO ---
Urology Progress Note - Objective Lab Studies: Reviewed (op note dictated #[id number] stent removed please leave paulson for now) Lab Results Last 24 Hours: Laboratory Results - last 24 hr 03/01/18 03/01/18 03/01/18 11:28 15:35 15:35 WBC 5.7 RBC 3.05 L Hgb 9.2 L Hct 27.6 L MCV 90.5 MCH 30.0 MCHC 33.2 RDW 17.8 H Plt Count 250 MPV 8.3 Neut % (Auto) 61.6 Lymph % (Auto) 21.0 [place] % (Auto) 8.1 Eos % (Auto) 7.8 H Baso % (Auto) 1.5 Neut # (Auto) 3.5 Lymph # (Auto) 1.2 [place] # (Auto) 0.5 Eos # (Auto) 0.4 Baso # (Auto) 0.1 Sodium 139 Potassium 4.2 Chloride 107 Carbon Dioxide 27 Anion Gap 9 L BUN 24 H Creatinine 1.6 H Est GFR ( Amer) 51 Est GFR (Non-Af Amer) 42 POC Glucose (mg/dL) 181 H Random Glucose 178 H Calcium 8.1 L Total Bilirubin 0.5 AST 23 ALT 17 L Alkaline Phosphatase 89 Total Protein 5.6 L Albumin 2.5 L Globulin 3.1 Albumin/Globulin Ratio 0.8 L 03/01/18 03/01/18 16:17 21:09 WBC RBC Hgb Hct MCV MCH MCHC RDW Plt Count MPV Neut % (Auto) Lymph % (Auto) [place] % (Auto) Eos % (Auto) Baso % (Auto) Neut # (Auto) Lymph # (Auto) [place] # (Auto) Eos # (Auto) Baso # (Auto) Sodium Potassium Chloride Carbon Dioxide Anion Gap BUN Creatinine Est GFR ( Amer) Est GFR (Non-Af Amer) POC Glucose (mg/dL) 209 H 158 H Random Glucose Calcium Total Bilirubin AST ALT Alkaline Phosphatase Total Protein Albumin Globulin Albumin/Globulin Ratio Intake & Output: Intake & Output 03/01/18 03/02/18 03/02/18 18:59 06:59 18:59 Intake Total 460 960 0 Output Total 385 90 700 Balance 75 870 -700 Weight 209 lb 0.25 oz Intake: IV 0 Intake, IV Amount 100 100 Right Upper arm 100 100 Oral 360 860 Output: Urine 385 90 700 Urethral (Paulson) 385 90 450 Other: # Bowel Movements 3 Vital Signs: Vital Signs - 24 hr 03/01/18 03/01/18 03/01/18 12:00 16:00 18:00 Temperature 97.2 F L 98.2 F Pulse Rate 78 78 78 Respiratory 22 20 Rate Blood Pressure 153/89 H 148/82 O2 Sat by Pulse 100 100 Oximetry 03/01/18 03/01/18 03/02/18 18:25 20:00 00:00 Temperature 97.6 F 98.1 F Pulse Rate 75 77 Respiratory 22 18 Rate Blood Pressure 146/81 146/81 148/83 O2 Sat by Pulse 100 100 Oximetry 03/02/18 03/02/18 03/02/18 01:00 04:00 08:00 Temperature 97.9 F 98.7 F Pulse Rate 77 75 90 Respiratory 22 20 Rate Blood Pressure 153/89 H 171/91 H O2 Sat by Pulse 100 99 Oximetry 03/02/18 10:00 Temperature Pulse Rate 90 Respiratory Rate Blood Pressure O2 Sat by Pulse Oximetry
[2018-03-02] MEDS: Multivitamin Vitamin B Complex (Nephro-Vite) Tab PO SCH (11:29)
[2018-03-02] MEDS: Lidocaine 5% Patch TD SCH (11:30)
[2018-03-02] MEDS: Multiple Vitamins Oral Solution PO SCH (11:30)
[2018-03-02] MEDS: Sucralfate 1 gm/10 ml Oral Susp UD PO SCH ×2 (11:30→14:37)
[2018-03-02] MEDS: Bacitracin/Neomycin/Polymyxin Oint(30GM) TOP SCH (12:20)
[2018-03-02 12:38] VITALS: RESP 20
[2018-03-02 15:51] LABS: URINE BILIRUBIN NEGATIVE (NEGATIVE); URINE CLARITY Hazy (Clear); URINE COLOR YELLOW (YELLOW); URINE GLUCOSE (UA) Normal (Normal)
[2018-03-02 15:52] LABS: URINE BLOOD TRACE (NEGATIVE); URINE LEUKOCYTE ESTERASE NEGATIVE Leu/uL (Negative); URINE PROTEIN 100 mg/dL (NEGATIVE); URINE UROBILINOGEN 0.2 mg/dL (0.2-1.0)
[2018-03-02 15:53] LABS: URINE BACTERIA RARE (<OCC)
--- NOTE | 2018-03-02 16:43 | RAD ---
Date of service: 03/02/2018 HISTORY: HYDRONEPHROSIS/URINARY RETENTION COMPARISON: 02/15/2018 FINDINGS: BOWEL: No mechanical bowel obstructive pattern suggested. Partially visualized is left colonic stool retention. Prior left colonic contrast and bladder contrast now less BONES: Degenerative type wedging thoraco lumbar spine rotary scoliosis, diffuse lumbar spondylosis. Bilateral hip arthrosis. OTHER FINDINGS: Bilateral hemipelvic phleboliths. Left ureteral stent similar position proximal coil projects over medial left the kidney-distal core all projecting in left hemipelvis near left contrast laden urine inferred within the bladder on this exam. Above findings refer to the smt technician image. On image number 2 the last film there is interval removal of the left ureteral stent.. Left hemipelvic calcifications smaller phleboliths also incidentally noted. Left vascular calcifications also noted. IMPRESSION: Interval removal of a left ureteral stent. Other findings as above.
[2018-03-02 17:29] VITALS: BP 151/95; PULSE 88; TEMP 97.7; O2SAT 98
--- NOTE | 2018-03-02 21:17 | OP ---
PROCEDURE DATE: 03/02/2018 UROLOGY OPERATIVE REPORT PREOPERATIVE DIAGNOSES: Retained stent, hydronephrosis, voiding dysfunction, hematuria. POSTOPERATIVE DIAGNOSES: Retained stent, hydronephrosis, voiding dysfunction, hematuria. PROCEDURES TODAY: Cystoscopy, removal of a left double-J stent (not re-inserted), see the below and insertion of Lord catheter. COMPLICATIONS: There were no complications. BLOOD LOSS: 10 mL. FINDINGS: It looked like that the stent incrustated, but in fact when we removed the stent, there were no incrustations on the stent. I actually removed this very easily. It looks like calcifications may be there before and after. See the pre and postop films. INDICATIONS: See the history and physical for the details. This is a very pleasant gentleman. I was requested to remove the stent. I explained that we have to review little further and the stent was inserted for hydronephrosis, however, after discussing options, given the patient's general health and . He is 77 years old. He has multiple medical issues including some baseline dementia in fact today consent we obtained both from the patient and also from the . We just did the above listed procedure. The patient also initially had hematuria. There was no malignancy found. Today, we did a cystoscopy. See the below findings. We did cysto and stent removal under mild sedation. The patient tolerated the procedure well without complications. 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 It is unclear etiology, but it is notably edematous. This was his baseline as well as the other day. Lord catheter is in good location. We removed it and put it new one back. We used a 12-Palestinian at this time. I do want to mention that the patient is on Plavix, and I was concerned about bleeding, so we tried doing it as gently as possible. He is not in a condition that we are going to stop the Plavix. The other urology findings: Normal anterior urethra, no stricture. The verumontanum is visually occlusive. It is an erythematous prostate. It is not grossly bleeding, but it is definitely not perfectly normal. At the bladder neck, there is redness and erythema. Again as I mentioned, the patient is on Plavix. There is no medical condition to do a biopsy, but certainly I would be concerned that the bladder neck that it could be an underlying malignancy. It could just be old inflammatory . I believe that we left them at the Lord. The ureteral stent was identified. I do want to mention another finding. We did a scalp film beforehand and on that scalp, it looked like there are some incrustations, but when we looked at the stent, it does not look incrustated. I was prepared to exchange the stent. But in fact, the stent pulled out easily. On postop film, you could see the results. We admitted to the radiologist, but we decided not to replace the stent. Given the fact that I do not think the patient would tolerate much more in the way of procedure. The stent was removed easily. We sent it down to the lab. We removed the cystoscope. We inserted a Lord catheter via the urethra. A rectal exam was attempted, but there is just tremendous amount of stool and diarrhea and it was therefore difficult. Overall, the patient tolerated the procedure well without complications. From a urology standpoint, we can follow the patient and then make recommendations. He is 77 years old. He has definite voiding dysfunction and definite prostatic abnormality. We have to see how his general medical condition is before we make any recommendations further. We will get followup. ADDENDUM: The plan will be to follow up BUN and creatinine and follow up perhaps ultrasound if it is warranted. We will see how the patient does clinically. Grey Martinez MD
--- NOTE | 2018-03-02 23:09 | CP.PCM.DIS ---
Provider - Provider Date of Admission: 02/21/18 19:19 Attending physician: Kevin Osborne MD Consults: 02/22/18 22:43 Cardiology Consult Routine Comment: Consulting Provider: Jose Gipson Consulting Physician: Jose Gipson Reason for Consult: chf Pulmonology Consult Routine Comment: Consulting Provider: Anderson Gómez Consulting Physician: Anderson Gómez Reason for Consult: sepsis 02/23/18 09:11 General Surgery Consult Routine Comment: Consulting Provider: Won Jordan Jr. Consulting Physician: Won Jordan Jr. Reason for Consult: CSPY; GI bleed; hemodynamically unstable; active bleed 02/23/18 18:44 Infectious Disease Consult Routine Comment: Consulting Provider: Mark Alvarez Consulting Physician: Mark Alvarez Reason for Consult: ESBL; continuation of meropenem 02/26/18 23:47 Nursing Referral for Wound Care Routine Comment: irregular open wound in the penile foreskin Physician Instructions: Reason For Exam: open wound in the sacrum, 02/27/18 16:21 Urology Consult Routine Comment: Consulting Provider: Zach Martinez Consulting Physician: Zach Martinez Reason for Consult: tsent removal Hospital Course - Lab Results Lab Results: Micro Results 02/21/18 22:46 Blood-Venous Blood Culture - Final NO GROWTH AFTER 5 DAYS 02/21/18 19:10 Blood-Venous Blood Culture - Final NO GROWTH AFTER 5 DAYS 02/21/18 19:10 Blood-Venous Gram Stain - Final TEST NOT PERFORMED 02/21/18 17:46 Urine Urine Culture - Final Escherichia Coli 02/21/18 21:45 Urine,Paulson Urine Culture - Final Escherichia Coli 02/21/18 22:06 Nose MRSA Culture (Admit) - Final MRSA NOT DETECTED Most Recent Lab Values WBC 5.7 K/uL (4.8-10.8) 03/01/18 15:35 RBC 3.05 Mil/uL (4.40-5.90) L 03/01/18 15:35 Hgb 9.2 g/dL (12.0-18.0) L 03/01/18 15:35 Hct 27.6 % (35.0-51.0) L 03/01/18 15:35 MCV 90.5 fL (80.0-94.0) 03/01/18 15:35 MCH 30.0 pg (27.0-31.0) 03/01/18 15:35 MCHC 33.2 g/dL (33.0-37.0) 03/01/18 15:35 RDW 17.8 % (11.5-14.5) H 03/01/18 15:35 Plt Count 250 K/uL (130-400) 03/01/18 15:35 MPV 8.3 fL (7.2-11.7) 03/01/18 15:35 Neut % (Auto) 61.6 % (50.0-75.0) 03/01/18 15:35 Lymph % (Auto) 21.0 % (20.0-40.0) 03/01/18 15:35 Weston % (Auto) 8.1 % (0.0-10.0) 03/01/18 15:35 Eos % (Auto) 7.8 % (0.0-4.0) H 03/01/18 15:35 Baso % (Auto) 1.5 % (0.0-2.0) 03/01/18 15:35 Neut # (Auto) 3.5 K/uL (1.8-7.0) 03/01/18 15:35 Lymph # (Auto) 1.2 K/uL (1.0-4.3) 03/01/18 15:35 Weston # (Auto) 0.5 K/uL (0.0-0.8) 03/01/18 15:35 Eos # (Auto) 0.4 K/uL (0.0-0.7) 03/01/18 15:35 Baso # (Auto) 0.1 K/uL (0.0-0.2) 03/01/18 15:35 PT 23.8 SECONDS (9.7-12.2) H 02/27/18 06:10 INR 2.2 02/27/18 06:10 APTT 35 SECONDS (21-34) H 02/25/18 05:08 Sodium 139 mmol/L (132-148) 03/01/18 15:35 Potassium 4.2 mmol/L (3.6-5.2) 03/01/18 15:35 Chloride 107 mmol/L (98-107) 03/01/18 15:35 Carbon Dioxide 27 mmol/L (22-30) 03/01/18 15:35 Anion Gap 9 (10-20) L 03/01/18 15:35 BUN 24 mg/dL (9-20) H 03/01/18 15:35 Creatinine 1.6 mg/dL (0.8-1.5) H 03/01/18 15:35 Est GFR ( Amer) 51 03/01/18 15:35 Est GFR (Non-Af Amer) 42 03/01/18 15:35 POC Glucose (mg/dL) 188 mg/dL (65-110) H 03/02/18 16:02 Random Glucose 178 mg/dL (75-110) H 03/01/18 15:35 Lactic Acid 1.4 mmol/L (0.7-2.1) 02/22/18 06:26 Calcium 8.1 mg/dl (8.6-10.4) L 03/01/18 15:35 Phosphorus 2.5 mg/dL (2.5-4.5) 02/25/18 05:08 Magnesium 2.0 mg/dL (1.6-2.3) 02/25/18 05:08 Total Bilirubin 0.5 mg/dL (0.2-1.3) 03/01/18 15:35 AST 23 U/L (17-59) 03/01/18 15:35 ALT 17 U/L (21-72) L 03/01/18 15:35 Alkaline Phosphatase 89 U/L (38-126) 03/01/18 15:35 Troponin I 0.0790 ng/mL (0.00-0.120) 02/21/18 19:55 NT-Pro-B Natriuret Pep 39300 pg/mL (0-900) H 02/21/18 19:55 Total Protein 5.6 g/dL (6.3-8.3) L 03/01/18 15:35 Albumin 2.5 g/dL (3.5-5.0) L 03/01/18 15:35 Globulin 3.1 gm/dL (2.2-3.9) 03/01/18 15:35 Albumin/Globulin Ratio 0.8 (1.0-2.1) L 03/01/18 15:35 Lipase 13 U/L (23-300) L 02/21/18 17:40 Prostate Specific Ag 8.39 ng/mL (0.00-4.0) H 02/25/18 05:08 TSH 3rd Generation 0.98 mIU/L (0.46-4.68) 02/25/18 05:08 Urine Color Yellow (YELLOW) 03/02/18 15:35 Urine Clarity Hazy (Clear) 03/02/18 15:35 Urine pH 6.0 (5.0-8.0) 03/02/18 15:35 Ur Specific Aurora 1.025 (1.003-1.030) 03/02/18 15:35 Urine Protein 100 mg/dL (NEGATIVE) 03/02/18 15:35 Urine Glucose (UA) Normal mg/dL (Normal) 03/02/18 15:35 Urine Ketones Trace mg/dL (NEGATIVE) H 03/02/18 15:35 Urine Blood Trace (NEGATIVE) H 03/02/18 15:35 Urine Nitrate Negative (NEGATIVE) 03/02/18 15:35 Urine Bilirubin Negative (NEGATIVE) 03/02/18 15:35 Urine Urobilinogen 0.2 mg/dL (0.2-1.0) 03/02/18 15:35 Ur Leukocyte Esterase Negative Shayy/uL (Negative) 03/02/18 15:35 Urine WBC (Auto) 21 /hpf (0-5) H 03/02/18 15:35 Urine RBC (Auto) 12 /hpf (0-3) H 03/02/18 15:35 Urine WBC Clumps (Auto) Many /hpf (NONE) H 02/21/18 21:45 Urine Bacteria Rare (<OCC) 03/02/18 15:35 Urine Yeast (Budding) Few /hpf (NEGATIVE) H 02/21/18 21:45 Stool Occult Blood Positive (NEGATIVE) H 02/21/18 18:26 Opiates (GC/MS) negative 02/21/18 22:06 Urine Opiates Screen Negative (NEGATIVE) 02/21/18 21:45 Ur Opiates (GC/MS) Negative 300 (Negative) 02/21/18 21:45 Methadone (GC/MS) negative 02/21/18 22:06 Urine Methadone Screen Negative (NEGATIVE) 02/21/18 21:45 Ur Methadone, Qual Negative 300 (Negative) 02/21/18 21:45 Propoxyphenes negative 02/21/18 22:06 Urine Propoxyphene Negative 300 (Negative) 02/21/18 21:45 Methaqualone Negative 300 (Negative) 02/21/18 21:45 Barbiturates negative 02/21/18 22:06 Ur Barbiturates Screen Negative (NEGATIVE) 02/21/18 21:45 Ur Barbiturates, Qual Negative 300 (Negative) 02/21/18 21:45 Phencyclidine (PCP) negative 02/21/18 22:06 Ur Phencyclidine Scrn Negative (NEGATIVE) 02/21/18 21:45 Ur Phencyclidine (PCP) Negative 25 (Negative) 02/21/18 21:45 Amphetamines negative 02/21/18 22:06 Ur Amphetamines Screen Negative 1000 (Negative) 02/21/18 21:45 Benzodiazepines negative 02/21/18 22:06 U Benzodiazepines Scrn Negative (NEGATIVE) 02/21/18 21:45 U Benzodiazepines Qual Negative 300 (Negative) 02/21/18 21:45 Cocaine & Metabolite negative 02/21/18 22:06 Urine Cocaine Negative 300 (Negative) 02/21/18 21:45 U Oth Cocaine Metabols Negative (NEGATIVE) 02/21/18 21:45 U Cannabinoids Screen Negative (NEGATIVE) 02/21/18 21:45 Marijuana negative 02/21/18 22:06 U Marijuana (THC) Screen Negative 50 (Negative) 02/21/18 21:45 Drugs of Abuse Note See note 02/21/18 21:45 Drugs of Abuse Comment See note 02/21/18 22:06 Blood Type A POSITIVE 02/21/18 17:40 Antibody Screen Negative 02/21/18 17:40 Discharge Exam - Head Exam Head Exam: NORMOCEPHALIC Discharge Plan - Discharge Medications Prescriptions: Famotidine [Pepcid] 20 mg PO DAILY #30 tab - Follow Up Plan Condition: FAIR Disposition: OTHER INSTITUTION Instructions: Urinary Tract Infection, Adult (DC), How to Care for Your Paulson Catheter, Male, Meropenem Additional Instructions: Please admit patient under Dr. Osborne service - call Dr. Osborne upon patient arrival to [facility] facility Please continue merrun for ten more days Please repeat cbc, bmp , q 3 days X 1 WEEK AND THEN PER DR. OSBORNE Please keep the paulson cath in and change q 30 days PLEASE F/U WITH DR. BLANCA ORTHO OFFICE IF HAS NOT SEEN - THIS IS VERY IMPORTANT FOR A F/U VISIT FOR FX OF KNEE
--- NOTE | 2018-03-02 23:27 | PQF ---
PROVIDER RESPONSE TEXT: Catheter Asso. Urinary Tract Infection in the setting of GI Bleed with Positive U/A and Urine CS rolando paige with Meropenem IV REVIEWER QUERY TEXT: Clarification of Clinical Diagnostic Findings Please clarify documentation or clinical relevance for the clinical / diagnostic findings or whether those are insignificant or unable to be further specified. Catheter Asso. Urinary Tract Infection in the setting of GI Bleed with Positive U/A and Urine CS t reated with Meropenem IV -Other Explanation. -Unable to Determine The patient's Clinical Indicators include: Clinical Findings : Chronic use of Lord catheter . Positive U/A, Positive Urine CS. Treatment: Meropenem IV Risk Factor: Chronic Use of Lord cath . Query created by: Briana Rollins on 02/23/2018 5:00 PM Electronically signed by: Kevin Osborne MD 03/02/2018 11:24 PM
--- NOTE | 2018-03-02 23:27 | PQF ---
PROVIDER RESPONSE TEXT: Bleeding due to Extrinsic Circulating Anticoagulant Coumadin with elevated INR of 3.6 , in the settin g of GI Bleeding treated with Vit K, and Transfusion w/ FFP REVIEWER QUERY TEXT: Clarification of Clinical Diagnostic Findings Please clarify documentation or clinical relevance for the clinical / diagnostic findings or whether those are insignificant or unable to be further specified. Bleeding due to Extrinsic Circulating Anticoagulant Coumadin with elevated INR of 3.6 , in the setti ng of GI Bleeding treated with Vit K, and Transfusion w/ FFP. -Other Explanation. -Unable to Determine. The patient's Clinical Indicators include: Clinical Findings: Blood in stool(Melena) , H/H on admission Hx of Afib, on Coumadin with elevated IN R of 3.6. H/H =5.5/17.3 on admission. Treatment: Hold Coumadin, Vit K IV, Transfusion w/ FFP Risk Factor : Anticoagulant Coumadin Query created by: Briana Rollins on 02/23/2018 4:52 PM Electronically signed by: Kevin Osborne MD 03/02/2018 11:24 PM
--- NOTE | 2018-03-03 04:48 | DS ---
DISCHARGE DIAGNOSES: 1. Gastrointestinal bleed due to coagulopathy. 2. Hematuria, urinary tract infection, with Lord catheter. 3. Obstructive uropathy with benign prostatic hyperplasia. 4. Hypertension. HOSPITAL COURSE: This is a 77-year-old male with history of hypertension, obstructive uropathy with BPH, congestive heart failure, chronically sick. He is currently in subacute rehab facility. He came in because of massive GI bleed, drop in hemoglobin. The patient was given FFP blood transfusion, and the patient's condition started improving. He felt better, and he was seen by ID and given antibiotics. He was seen by Urology, and stents were removed. The patient is feeling better, and he is for discharge back to subacute rehab. His condition is stable. PHYSICAL EXAMINATION: VITAL SIGNS: Upon discharge, blood pressure 157/95, pulse 88, respiratory rate 20, and temperature 97.7. LUNGS: Decreased air entry. CARDIOVASCULAR SYSTEM: S1, S2 regular. ABDOMEN: Soft. PLAN: Discharge the patient. Kevin Osborne MD
--- NOTE | 2018-03-03 17:12 | CARD ---
APPROVED REPORT Date of service: 02/21/2018 EKG Measurement Heart [id number] <Conclusion> Atrial fibrillation with rapid ventricular response Left axis deviation Anteroseptal infarct, age undetermined ST & T wave abnormality, consider lateral ischemia Abnormal ECG
--- NOTE | 2018-03-03 17:13 | CARD ---
APPROVED REPORT Date of service: 02/21/2018 EKG Measurement Heart [id number] <Conclusion> Atrial fibrillation with rapid ventricular response Left axis deviation Anteroseptal infarct, age undetermined ST & T wave abnormality, consider lateral ischemia Abnormal ECG
== END 2018-03-02 17:33 | DRG 377 ==
LOC: C.ER 16:57 → C.9E 19:19 → C.9I 20:04 → C.7D 02-28 13:21 → C.9I 02-28 13:21
PROVIDERS: ADMIT Internal Medicine; ATTEND Internal Medicine
PROC: 30233K1 Transfusion of Nonautologous Frozen Plasma into Peripheral Vein, Percutaneous Approach (ICD-10-PCS; 2018-02-21)
PROC: 0DJ08ZZ Inspection of Upper Intestinal Tract, Via Natural or Artificial Opening Endoscopic (ICD-10-PCS; 2018-02-22)
PROC: 0DBK8ZX Excision of Ascending Colon, Via Natural or Artificial Opening Endoscopic, Diagnostic (ICD-10-PCS; 2018-02-23)
PROC: 0DBL8ZX Excision of Transverse Colon, Via Natural or Artificial Opening Endoscopic, Diagnostic (ICD-10-PCS; 2018-02-23)
PROC: 0DBN8ZX Excision of Sigmoid Colon, Via Natural or Artificial Opening Endoscopic, Diagnostic (ICD-10-PCS; 2018-02-23)
PROC: 02HV33Z Insertion of Infusion Device into Superior Vena Cava, Percutaneous Approach (ICD-10-PCS; 2018-02-23)
PROC: 0DBM8ZX Excision of Descending Colon, Via Natural or Artificial Opening Endoscopic, Diagnostic (ICD-10-PCS; 2018-02-23)
PROC: 0DBH8ZX Excision of Cecum, Via Natural or Artificial Opening Endoscopic, Diagnostic (ICD-10-PCS; principal; 2018-02-23 17:45)
PROC: 30233N1 Transfusion of Nonautologous Red Blood Cells into Peripheral Vein, Percutaneous Approach (ICD-10-PCS; 2018-02-24)
DX: K92.1 Melena (principal); A41.9 Sepsis, unspecified organism; T83.511A Infection and inflammatory reaction due to indwelling urethral catheter, initial encounter; N39.0 Urinary tract infection, site not specified; D68.32 Hemorrhagic disorder due to extrinsic circulating anticoagulants; D62 Acute posthemorrhagic anemia; N13.30 Unspecified hydronephrosis; N13.8 Other obstructive and reflux uropathy; F03.90 Unspecified dementia, unspecified severity, without behavioral disturbance, psychotic disturbance, mood disturbance, and anxiety; I11.0 Hypertensive heart disease with heart failure; I48.91 Unspecified atrial fibrillation; B96.20 Unspecified Escherichia coli [E. coli] as the cause of diseases classified elsewhere; Y84.6 Urinary catheterization as the cause of abnormal reaction of the patient, or of later complication, without mention of misadventure at the time of the procedure; T45.515A Adverse effect of anticoagulants, initial encounter; E86.0 Dehydration; K26.9 Duodenal ulcer, unspecified as acute or chronic, without hemorrhage or perforation; K57.30 Diverticulosis of large intestine without perforation or abscess without bleeding; I25.10 Atherosclerotic heart disease of native coronary artery without angina pectoris; E03.9 Hypothyroidism, unspecified; R00.0 Tachycardia, unspecified; E78.5 Hyperlipidemia, unspecified; E11.9 Type 2 diabetes mellitus without complications; R31.9 Hematuria, unspecified; S31.20XA Unspecified open wound of penis, initial encounter; X58.XXXA Exposure to other specified factors, initial encounter; N40.1 Benign prostatic hyperplasia with lower urinary tract symptoms; D12.2 Benign neoplasm of ascending colon; D12.3 Benign neoplasm of transverse colon; D12.4 Benign neoplasm of descending colon; D12.5 Benign neoplasm of sigmoid colon

== ENCOUNTER 2018-03-28 12:28 | Observation (INO) | payer MEDICARE, OTHER ==
[2018-03-28 12:30] VITALS: PULSE 140; BMI 32.8
--- NOTE | 2018-03-28 13:03 | C.PDOC ---
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 Per bedside and RN at [facility] pt was attempting to get out of bed this morning at 0800 and was found face down at 1045. Per RN pt had apparently gotten out of bed and fallen onto face. Pt denies any pain at this time but notes falling earlier. He notes only chronic back pain but no encoparesis or saddle anesthesia. Notes he always has a paulson. He denies any midline back pain or neck pain. No CVAT. No urinary complaints. No SOB, CP. No fever, chills or night sweats. No other complaints. - HPI Time Seen by Provider: 03/28/18 13:03 Chief Complaint (Nursing): Trauma Past Medical History Vital Signs: Last Vital Signs Temp 97.9 F 03/28/18 12:57 Pulse 97 H 03/28/18 12:57 Resp 22 03/28/18 12:57 BP 145/106 H 03/28/18 12:57 Pulse Ox 100 03/28/18 12:57 - Medical History PMH: Anemia, Atrial Fibrillation, CAD, CHF, Diabetes, HTN, Hypercholesterolemia Denies: Arthritis, COPD, Deep Vein Thrombosis, HIV, Hypothyroidism, Chronic Kidney Disease, Rheumatoid Arthritis Surgical History: Coronary Stent Denies: Pacemaker - [facility] Procedures ASSISTANCE WITH RESPIRATORY VENTILATION, >96 HRS, CPAP (02/08/18) CONTROL BLEEDING IN GENITOURINARY TRACT, ENDO (11/29/16) DILATION OF LEFT URETER WITH INTRALUMINAL DEVICE, ENDO (11/29/16) EXCISION OF ASCENDING COLON, ENDO, DIAGN (02/21/18) EXCISION OF CECUM, ENDO, DIAGN (02/21/18) EXCISION OF DESCENDING COLON, ENDO, DIAGN (02/21/18) EXCISION OF SIGMOID COLON, ENDO, DIAGN (02/21/18) EXCISION OF TRANSVERSE COLON, ENDO, DIAGN (02/21/18) FLUOROSCOPY KIDNEY, URETER, BLADDER, L W L OSM CONTRAST (11/29/16) INSERTION OF INFUSION DEV INTO SUP VENA CAVA, PERC APPROACH (02/21/18) INSPECTION OF UPPER INTESTINAL TRACT, ENDO (02/21/18) TRANSFUSE NONAUT FROZEN PLASMA IN PERIPH VEIN, PERC (02/21/18) TRANSFUSE NONAUT RED BLOOD CELLS IN PERIPH VEIN, PERC (02/21/18) Family History: States: Unknown Family Hx - Social History Hx Alcohol Use: Yes (history/ patient no longer drinks alcohol) Hx Substance Use: No - Immunization History Hx Tetanus Toxoid Vaccination: No Hx Influenza Vaccination: Yes Hx Pneumococcal Vaccination: Yes Review Of Systems Constitutional: Negative for: Fever, Chills, Sweats Eyes: Negative for: Pain, Vision Change ENT: Negative for: Ear Pain, Ear Discharge, Nose Pain, Nose Discharge, Nose Congestion, Mouth Pain, Mouth Swelling, Throat Pain Cardiovascular: Negative for: Chest Pain, Palpitations, Orthopnea, Edema Respiratory: Negative for: Cough, Shortness of Breath, SOB with Excertion, Pleuritic Pain Gastrointestinal: Negative for: Nausea, Vomiting, Abdominal Pain, Constipation, Melena, Hematochezia Genitourinary: Negative for: Dysuria, Frequency, Hematuria Musculoskeletal: Negative for: Neck Pain, Shoulder Pain, Back Pain, Hand Pain Skin: Negative for: Rash, Lesions Neurological: Negative for: Weakness, Numbness, Incoordination, Change in Speech , Confusion, Seizures Psych: Negative for: Anxiety, Psychosis Physical Exam - Physical Exam Appears: Well, Non-toxic, No Acute Distress Skin: Other (stage 3 sacral ulcer, no crepitus noted) Head: Atraumatic, Normacephalic Eye(s): bilateral: Normal Inspection, PERRL, EOMI Ear(s): Bilateral: Normal Nose: Normal, No Flaring, No Epistaxis, No Deformity, No Tenderness, No Septal Hematoma Oral Mucosa: Moist Tongue: Normal Appearing Lips: Normal Appearing Throat: Normal, No Erythema, No Exudate Neck: Normal, Normal ROM, No Decreased ROM, No Step Off Deformity, Supple, Other (no meningeal signs) Chest: Symmetrical Cardiovascular: Other (irregularly irregular) Respiratory: Normal Breath Sounds, No Decreased Breath Sounds, No Accessory Muscle Use, No Rales, No Rhonchi, No Stridor Gastrointestinal/Abdominal: Normal Exam Back: Normal Inspection, No CVA Tenderness, No Vertebral Tenderness, No Decreased ROM, No Muscle Spasm, No Paraspinal Tenderness Extremity: No Calf Tenderness, Other (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 ) Pulses: Left Dorsalis Pedis: Normal, Right Dorsalis Pedis: Normal Neurological/Psych: Oriented x3, Normal Speech, Normal Cognition, Other (L sided weaker than R, at baseline per pt) ED Course And Treatment - Laboratory Results Result Diagrams: 03/28/18 13:57 03/28/18 13:57 O2 Sat by Pulse Oximetry: 100 Medical Decision Making Medical Decision Makin yr old male w/ extensive medical history including afib, CVA w/ L sided weakness on plavix p/w fall. Notes chronic back pain, without any cauda equina SxS. On exam, at baseline per bedside. No vertebral tenderness. Sacral ulcer noted w/ out signs of crepitus or erythematous rash. No signs of trauma on exam. No septal hematoma or raccoon eyes. Pt is DNR, DNH, DNI. Will seek imaging and labs. Pending imaging and labs. EK, afib, no stemi 1449 CBC largely unremarkable CTH w. out acute hemorrhage CT C spine w/ out fx. Notable thyroid recc us. I reccomended pt see PMD to get outpt US. He is agreeable 1624 DNH order per RN at [facility] CT abd pelvis w/ concern for hemorrhage: however no signs of trauma on back. No abrasion or tenderness. No bruising noted. Mild congestion noted on XR, lasix ordered. pt w/ good o2 sats and in NAD. Cr mildly elevated. paulson w/ good drainange 1640 appreciate consult w/ Dr. Ambriz (PMD)- rescind DNH order, to admit to vijay osborne appreciate consult w. Dr. Osborne: to admit to his service pt placed in tele given comorbid and ct findings. he is in NAD Disposition - Disposition Disposition: HOSPITALIZED Disposition Time: 16:40 Condition: GOOD - Clinical Impression Clinical Impression: Fall
--- NOTE | 2018-03-28 14:03 | CT ---
Date of service: 03/28/2018 PROCEDURE: CT HEAD WITHOUT CONTRAST. HISTORY: Fall on Plavix COMPARISON: Comparison made with prior CT scan brain dated 01/30/2018. TECHNIQUE: Axial computed tomography images were obtained through the head/brain without intravenous contrast. Radiation dose: Total exam DLP = 942.76 mGy-cm. This CT exam was performed using one or more of the following dose reduction techniques: Automated exposure control, adjustment of the mA and/or kV according to patient size, and/or use of iterative reconstruction technique. FINDINGS: HEMORRHAGE: No acute parenchymal, subarachnoid or extra-axial hemorrhage. BRAIN: Moderate chronic periventricular white matter ischemic changes. Additionally, there are more discrete chronic appearing infarcts seen scattered about the subcortical white matter both cerebral hemispheres most notably in the left posterior frontoparietal region as well as the anterior inferior frontal lobe extending to the periventricular white matter adjacent to the right frontal horn with involvement of the right caudate head as well. Additionally, there is a chronic infarct in the right basal ganglia extending superiorly into the right cook radiata which appears to have undergone evolution and was likely acute- subacute infarct on prior exam Moderate generalized volume loss. Vascular calcifications both carotid siphons VENTRICLES: No obstructive hydrocephalus. CALVARIUM: There are no acute calvarial fractures. PARANASAL SINUSES: Minimal mucosal thickening noted within a few ethmoid air cells extending superiorly into the frontal sinus. MASTOID AIR CELLS: Near complete opacification right mastoid air complex progressed since prior exam.. There is also complete opacification of the right middle ear canal. Also again noted is sclerosis and underpneumatized left mastoid air complex with near complete opacification of the right mastoid air complex/middle ear canal.. OTHER FINDINGS: Changes of right-sided cataract surgery again noted. IMPRESSION: No acute intracranial hemorrhage. Redemonstrated are moderate chronic white matter ischemic changes with scattered more discrete chronic infarcts in the subcortical white matter both cerebral hemispheres as well as right basal ganglia. And underpneumatized in appearance. Moderate generalized volume loss. There are no acute calvarial fractures. Near complete opacification of both mastoid air complexes and middle ear canals. Note that the left mastoid air complex remains sclerotic
[2018-03-28 14:09] LABS: BASO # 0.1 K/uL (0.0-0.2); BASO % 1.2 % (0.0-2.0); EOS # 0.1 K/uL (0.0-0.7); EOS % 2.4 % (0.0-4.0); HEMOGLOBIN 10.2 g/dL (12.0-18.0); LYMPH % 22.5 % (20.0-40.0); MEAN CELL VOLUME 91.6 fL (80.0-94.0); MEAN CORPUSCULAR HEMOGLOBIN 29.3 pg (27.0-31.0); MEAN PLATELET VOLUME 8.7 fL (7.2-11.7); MONO # 0.2 K/uL (0.0-0.8); MONO % 4.2 % (0.0-10.0); NEUT # 3.2 K/uL (1.8-7.0); NEUT % 69.7 % (50.0-75.0); RBC 3.48 Mil/uL (4.40-5.90); WHITE BLOOD COUNT 4.6 K/uL (4.8-10.8)
--- NOTE | 2018-03-28 14:09 | CT ---
Date of service: 03/28/2018 PROCEDURE: CT Cervical Spine without contrast HISTORY: Fall on Plavix COMPARISON: None available. TECHNIQUE: Axial computed tomography images were obtained of the cervical spine without the use of intravenous contrast. Coronal and sagittal reformatted images were created and reviewed. Radiation dose: Total exam DLP = 515.51 mGy-cm. This CT exam was performed using one or more of the following dose reduction techniques: Automated exposure control, adjustment of the mA and/or kV according to patient size, and/or use of iterative reconstruction technique. FINDINGS: VERTEBRAE: No acute compression fractures no retropulsed fragments. Vertebral bodies exhibit relatively normal stature. Vertebral bodies exhibit relatively normal alignment. Facets normally aligned. DISCS/SPINAL CANAL/NEURAL FORAMINA: Moderate multilevel degenerative spondylosis. At the C5-C6 level, there is disc space narrowing with endplate eburnation and subchondral cystic changes. The small broad-based disc ridge complex contiguous with hypertrophic uncovertebral joints. Facets also hypertrophic. Changes result in mild irregular compressive effects on the ventral surface of the thecal sac. Central canal appears adequate. Exit foramina are narrowed bilaterally more so on the right side. Similar changes are seen at the C6-C7 level with marked disc space narrowing cortical endplate or eburnation and subchondral cystic changes. Small disc ridge complex contiguous with hypertrophic uncovertebral joints. These changes result in mild flattening of the ventral surface of the thecal sac however the overall central bony canal appears adequate. Facets slightly hypertrophic. Exit foramina stenotic bilaterally. At the C4-C5 level, there is relatively adequate disc height. Small central and bilateral disc bulge with mildly hypertrophic uncovertebral joints left greater than right. Central canal appears adequate facet joints are also significantly hypertrophic on the left and minimally overgrown on the right. Left exit foramen stenotic. Right exit foramen adequate. At the C3-C4 level, there is relatively adequate disc height. Minimal of broad-based bulge bulge ridge complex contiguous with hypertrophic uncovertebral joints. The facets also quite hypertrophic. Central canal is adequate. Exit foramina appear narrowed bilaterally. At the C2-C3 level, there is mild posterior disc space narrowing with small broad-based disc ridge complex contiguous with hypertrophic uncovertebral joints. Facets also hypertrophic. Changes result in mild flattening of the ventral surface of the thecal sac reaching and minimally if at all flattening the ventral surface of the the spinal cord. The central canal is marginal to minimally narrowed. Exit foramina are marginal to mildly narrowed more so on the right side. PARASPINAL SOFT TISSUES: Unremarkable. OTHER FINDINGS: The thyroid gland is somewhat heterogeneous with a few scattered areas of low attenuation seen in the right lobe and possibly left lobe as well. Consider follow-up thyroid ultrasound. Vascular calcifications both distal common carotid artery/carotid bifurcations. Lung apices are clear. IMPRESSION: No acute fractures. Multilevel degenerative spondylosis most notably affecting the exit foramina as detailed above.
[2018-03-28 14:20] LABS: INR 1.1
--- NOTE | 2018-03-28 14:31 | CT ---
Date of service: 03/28/2018 PROCEDURE: CT Abdomen and Pelvis. HISTORY: Fall on Plavix. COMPARISON: Comparison made with prior CT scan of the abdomen and pelvis dated 02/22/2028.. TECHNIQUE: Contiguous axial images of the abdomen and pelvis performed without oral or intravenous contrast material. Additional 2D sagittal and coronal reformats generated. Radiation dose: Total exam DLP = 1145.78 mGy-cm. This CT exam was performed using one or more of the following dose reduction techniques: Automated exposure control, adjustment of the mA and/or kV according to patient size, and/or use of iterative reconstruction technique. Which FINDINGS: LOWER THORAX: Moderate-sized bilateral effusions and mild bibasilar atelectasis left greater than right. In addition, there also appears to be areas of scarring in the middle lobe and lingular regions.. LIVER: Liver is upper limits of normal measuring over 18 cm in CC dimension. No obvious hepatic mass collection or calcification. There appear to be a few punctate calcifications in the manish hepatis region nonspecific. GALLBLADDER AND BILE DUCTS: Gallbladder physiologically distended. No evidence of intraluminal gallbladder calculi. PANCREAS: Pancreas atrophic and fatty replaced. No obvious pancreatic masses or collections. SPLEEN: Spleen exhibits normal size and attenuation pattern without mass collection or calcification. ADRENALS: The enlarged nodular adrenal glands. KIDNEYS AND URETERS: Interval removal of left ureteral stent.. The left kidney is enlarged and sac like in appearance with fluid and or cystic changes left kidney is exhibits homogeneous appearance likely due to longstanding hydronephrosis with significant cortical atrophy. Some minor vascular calcifications seen in the left renal hilum. There is a large complex cyst arising from the lateral cortex of the midpole right kidney that measures approximately 8.6 x 7.2 x 6.2 cm. Linear and a few more discrete smaller round calcifications seen along the lateral peripheral margin of this large cyst. Few tiny calcifications are also seen in the upper pole cortex. Mild infiltration changes in the perinephric fat bilaterally. BLADDER: Urinary bladder is collapsed about an in situ Lord catheter. Small amount of air is present of likely due to recent instrumentation. Urinary bladder wall is thickened in part due to collapse and probable muscular hypertrophy however correlation with urinalysis recommended to exclude cystitis. Note that as mentioned below, prostate gland is enlarged and lobulated in crossing into the floor urinary bladder. Possibility of an invasive bladder wall lesion rule it would be difficult to distinguish from encroaching prostate gland REPRODUCTIVE: Apparent scrotal hydrocele.. Prostate gland enlarged measuring approximately 6.5 cm. Prostate gland exhibits lobular contours encroaches into the floor of the urinary bladder.. Findings likely due to BPH however correlation with PSA recommended to exclude the possibility of prostate carcinoma. APPENDIX: Normal appendix. BOWEL: Evaluation of the bowel is somewhat limited due to the lack of oral contrast material. The stomach is incompletely distended with thick-walled appearance. Visualized loops of small bowel exhibit relatively normal contour and caliber. No evidence of acute mechanical small bowel obstruction. Moderate amount of stool seen within the cecum and proximal ascending colon suggesting mild fecal retention. Most the remaining colon is relatively collapsed the. There are scattered colonic diverticula seen along the descending and sigmoid colon. No definitive radiographic evidence of acute diverticulitis. PERITONEUM: Unremarkable. No fluid collection. No free air. LYMPH NODES: Unremarkable. No enlarged lymph nodes. VASCULATURE: Unremarkable. No aortic aneurysm. Mild aortic atherosclerotic calcification or mural plaque present. BONES: No acute compression fractures no retropulsed fragments. Vertebral bodies exhibit relatively normal stature.. 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 Collectively changes result in very severe canal narrowing most notably affecting the L2-L3 through the L4-L5 levels. OTHER FINDINGS: Note made of asymmetric subcutaneous soft tissue changes and infiltration along the left flank possibly due to posttraumatic hemorrhage and edema. Clinical correlation with physical exam recommended. IMPRESSION: Moderate-sized bilateral effusions and mild bibasilar atelectasis left greater than right. In addition, there also appears to be areas of scarring in the middle lobe and lingular regions. Urinary bladder is collapsed about an in situ Lord catheter. Small amount of air is present of likely due to recent instrumentation. Urinary bladder wall is thickened in part due to collapse and probable muscular hypertrophy however correlation with urinalysis recommended to exclude cystitis. Note that as mentioned below, prostate gland is enlarged and lobulated in crossing into the floor urinary bladder. Possibility of an invasive bladder wall lesion rule it would be difficult to distinguish from encroaching prostate gland Enlarged lobular heterogeneous prostate gland likely due to BPH however correlation with PSA recommended to exclude prostate carcinoma Apparent scrotal hydroceles. The left kidney is enlarged and exhibits homogeneous appearance likely due to severe longstanding obstructive hydronephrosis. Interval removal previously noted left ureteral stent. Redemonstrated is a complex exophytic cyst right kidney. Slightly enlarged nodular adrenal glands. Note made of asymmetric subcutaneous soft tissue changes and infiltration along the left flank possibly due to posttraumatic hemorrhage and edema. Clinical correlation with physical exam recommended. 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 Collectively changes result in very severe canal narrowing most notably affecting the L2-L3 through the L4-L5 levels.
[2018-03-28 14:49] LABS: ALB/GLOB RATIO 0.8 (1.0-2.1); ALBUMIN 2.8 g/dL (3.5-5.0); CALCIUM 8.3 mg/dl (8.6-10.4)
--- NOTE | 2018-03-28 15:54 | RAD ---
Date of service: 03/28/2018 HISTORY: fall, L sided pain COMPARISON: 02/21/2018 TECHNIQUE: Chest PA and lateral FINDINGS: LUNGS: Hypoinflation-similar. Bibasilar subsegmental atelectasis suspect-similar. PLEURA: Small left pleural effusion-similar. No pneumothorax apparent. CARDIOVASCULAR: There is presence of aortic atherosclerotic calcification on x-ray. Cardiomegaly-similar pulmonary venous congestion-appear slightly increased since prior exam. OSSEOUS STRUCTURES: Thoracic spondylosis. Bilateral shoulder arthrosis. VISUALIZED UPPER ABDOMEN: Normal. OTHER FINDINGS: None. IMPRESSION: Interval increased pulmonary venous congestion with cardiomegaly and small left pleural effusion-findings consistent congestive heart failure. Bibasilar subsegmental minimal-mild atelectasis suspect left side greater than right-yet similar in appearance Comments: Study marked for PA review .
[2018-03-28] MEDS ORDERED: Oxycodone/Acetaminophen 5/325 mg Tab PO PRN (21:05)
[2018-03-28] MEDS: (Novolin R) Insulin Human Regular 100 units/ml vial SC SCH (23:10)
[2018-03-29] MEDS: (Novolin R) Insulin Human Regular 100 units/ml vial SC SCH ×4 (08:30→22:06)
[2018-03-29] MEDS: Potassium Chloride 20 mEq ER Tab PO SCH (11:00)
[2018-03-29] MEDS: Multiple Vitamins Tab PO SCH (11:00)
[2018-03-29] MEDS: Enoxaparin 40 mg Syringe SC SCH (11:00)
[2018-03-29] MEDS: Lidocaine 5% Patch TD SCH (11:14)
[2018-03-29] MEDS ORDERED: Nitroglycerin 2% Ointment Foilpak UD TOP ONE (13:30)
[2018-03-29 14:00] LABS: HEMOGLOBIN 10.4 g/dL (12.0-18.0); MEAN CELL VOLUME 91.2 fL (80.0-94.0); MEAN CORPUSCULAR HEMOGLOBIN 29.6 pg (27.0-31.0); MEAN CORPUSCULAR HGB CONC 32.5 g/dL (33.0-37.0); MEAN PLATELET VOLUME 9.1 fL (7.2-11.7); RBC 3.51 Mil/uL (4.40-5.90); RED CELL DISTRIBUTION WIDTH 16.5 % (11.5-14.5); WHITE BLOOD COUNT 4.4 K/uL (4.8-10.8)
--- NOTE | 2018-03-29 14:15 | CARD ---
APPROVED REPORT Date of service: 03/28/2018 EKG Measurement Heart [id number] <Conclusion> Atrial fibrillation Left axis deviation Anteroseptal infarct, age undetermined Abnormal ECG
--- NOTE | 2018-03-29 16:27 | US ---
Date of service: 03/29/2018 PROCEDURE: Ultrasound of the Kidneys HISTORY: r/o bleed , attention to r kidney COMPARISON: None available. TECHNIQUE: Sonogram of the kidneys. FINDINGS: RIGHT KIDNEY: Measures: 13.3 cm. Diffusely increased cortical echogenicity. Normal cortical thickness. Lower pole cyst, 4.3 x 7.5 x 7.9 cm. No solid mass. No calculus. No hydronephrosis. LEFT KIDNEY: Measures: 17.2 cm. Enlarged. Cortical echogenicity difficult to evaluate because of hydronephrosis and enlargement. Severe hydronephrosis. No mass or calculus. OTHER FINDINGS: Lord catheter within nondistended urinary bladder. IMPRESSION: 7.9 cm right lower pole renal cortical cyst. Severe left hydronephrosis. Increased right renal cortical echogenicity.
[2018-03-29 16:32] VITALS: RESP 20
--- NOTE | 2018-03-29 16:46 | RAD ---
Date of service: 03/29/2018 PROCEDURE: Right Knee Radiographs. HISTORY: follow up tibial plateaufx COMPARISON: None. FINDINGS: BONES: Normal. No fracture. JOINTS: Mild narrowing of the medial joint compartment consistent with osteoarthritis. Lateral and patellofemoral compartments appear preserved. JOINT EFFUSION: None. OTHER FINDINGS: None. IMPRESSION: Medial osteoarthritis.
--- NOTE | 2018-03-29 21:49 | CP.PCM.HP ---
Present on Admission - Present on Admission Any Indicators Present on Admission: No Past Patient History - Infectious Disease Hx of Infectious Diseases: None - Tetanus Immunizations Tetanus Immunization: Unknown - Past Medical History & Family History Past Medical History?: Yes - Past Social History Smoking Status: Former Smoker - CARDIAC Hx Atrial Fibrillation: Yes Hx Congestive Heart Failure: Yes Hx Hypercholesterolemia: Yes Hx Hypertension: Yes Hx Pacemaker: No - PULMONARY Hx Chronic Obstructive Pulmonary Disease (COPD): No - NEUROLOGICAL Hx Neurological Disorder: No HX Cerebrovascular Accident: Yes - HEENT Hx HEENT Problems: No - RENAL Hx Chronic Kidney Disease: No - ENDOCRINE/METABOLIC Hx Hypothyroidism: No - HEMATOLOGICAL/ONCOLOGICAL Hx Anemia: Yes Hx Human Immunodeficiency Virus (HIV): No - INTEGUMENTARY Hx Dermatological Problems: No - MUSCULOSKELETAL/RHEUMATOLOGICAL Hx Arthritis: No Hx Rheumatoid Arthritis: No - GASTROINTESTINAL Hx Gastrointestinal Disorders: No - GENITOURINARY/GYNECOLOGICAL Hx Genitourinary Disorders: No - PSYCHIATRIC Hx Substance Use: No - SURGICAL HISTORY Hx Coronary Stent: Yes - ANESTHESIA Hx Anesthesia: Yes Hx Anesthesia Reactions: No Hx Malignant Hyperthermia: No Meds Allergies/Adverse Reactions: Allergies Allergy/AdvReac Type Severity Reaction Status Date / Time No Known Allergies Allergy Verified 02/21/18 17:15 Results - Vital Signs Recent Vital Signs: Last Vital Signs Temp 98.3 F 03/29/18 15:31 Pulse 103 H 03/29/18 15:31 Resp 20 03/29/18 15:31 BP 150/100 H 03/29/18 15:31 Pulse Ox 98 03/29/18 15:31 - Labs Result Diagrams: 03/29/18 13:50 03/28/18 13:57 Labs: Laboratory Results - last 24 hr 03/28/18 03/29/18 03/29/18 23:00 06:44 11:23 WBC RBC Hgb Hct MCV MCH MCHC RDW Plt Count MPV POC Glucose (mg/dL) 160 H 124 H 128 H 03/29/18 03/29/18 13:50 16:46 WBC 4.4 L RBC 3.51 L Hgb 10.4 L Hct 32.0 L MCV 91.2 MCH 29.6 MCHC 32.5 L RDW 16.5 H Plt Count 132 MPV 9.1 POC Glucose (mg/dL) 141 H
[2018-03-30] MEDS: (Novolin R) Insulin Human Regular 100 units/ml vial SC SCH ×2 (07:39→13:38)
--- NOTE | 2018-03-30 08:20 | CP.PCM.CON ---
History of Present Illness - History of Present Illness History of Present Illness: ORthopedic consultation Dr. Lopez 77[address] Lopez with Right medial and lateral tibial plateau fracture 10 weeks ago. He has been at rehab and reportedly no orthopedic follow up since last admission. Patient complaining of knee pain during exam. Poor historian. Unclear how ambulatory patient has been. PT/OT evals deferred yesterday due to high BP. Review of Systems - Review of Systems Systems not reviewed;Unavailable: Dementia All systems: reviewed and no additional remarkable complaints except - Musculoskeletal Musculoskeletal: As Per HPI Past Patient History - Infectious Disease Hx of Infectious Diseases: None - Tetanus Immunizations Tetanus Immunization: Unknown - Past Medical History & Family History Past Medical History?: Yes Past Family History: Reviewed and not pertinent - Past Social History Smoking Status: Former Smoker - CARDIAC Hx Atrial Fibrillation: Yes Hx Congestive Heart Failure: Yes Hx Hypercholesterolemia: Yes Hx Hypertension: Yes Hx Pacemaker: No - PULMONARY Hx Chronic Obstructive Pulmonary Disease (COPD): No - NEUROLOGICAL Hx Neurological Disorder: No HX Cerebrovascular Accident: Yes - HEENT Hx HEENT Problems: No - RENAL Hx Chronic Kidney Disease: No - ENDOCRINE/METABOLIC Hx Hypothyroidism: No - HEMATOLOGICAL/ONCOLOGICAL Hx Anemia: Yes Hx Human Immunodeficiency Virus (HIV): No - INTEGUMENTARY Hx Dermatological Problems: No - MUSCULOSKELETAL/RHEUMATOLOGICAL Hx Arthritis: No Hx Rheumatoid Arthritis: No - GASTROINTESTINAL Hx Gastrointestinal Disorders: No - GENITOURINARY/GYNECOLOGICAL Hx Genitourinary Disorders: No - PSYCHIATRIC Hx Substance Use: No - SURGICAL HISTORY Hx Coronary Stent: Yes - ANESTHESIA Hx Anesthesia: Yes Hx Anesthesia Reactions: No Hx Malignant Hyperthermia: No Meds Allergies/Adverse Reactions: Allergies Allergy/AdvReac Type Severity Reaction Status Date / Time No Known Allergies Allergy Verified 02/21/18 17:15 - Medications Medications: Current Medications Acetaminophen (Tylenol 325mg Tab) 650 mg PO Q4 PRN PRN Reason: Pain, Mild (1-3) Clonazepam (Klonopin) 0.5 mg PO Q8 [facility] Last Admin: 03/30/18 06:16 Dose: 0.5 mg Clopidogrel Bisulfate (Plavix) 75 mg PO DAILY [facility] Last Admin: 03/29/18 11:00 Dose: 75 mg Docusate Sodium (Colace) 100 mg PO TID [facility] Last Admin: 03/29/18 22:01 Dose: 100 mg Enoxaparin Sodium (Lovenox) 40 mg SC DAILY [facility] Last Admin: 03/29/18 11:00 Dose: 40 mg Famotidine (Pepcid) 20 mg PO DAILY [facility] Last Admin: 03/29/18 11:00 Dose: 20 mg Finasteride (Proscar) 5 mg PO DAILY [facility] Last Admin: 03/29/18 11:00 Dose: 5 mg Furosemide (Lasix) 40 mg PO DAILY [facility] Last Admin: 03/29/18 11:00 Dose: 40 mg Hydralazine HCl (Apresoline) 25 mg PO Q8 [facility] Last Admin: 03/30/18 06:16 Dose: 25 mg Influenza Virus Vaccine (Flucelvax Quad [id number] Syr) 60 mcg IM .ONCE ONE Stop: 03/30/18 12:01 Insulin Human Regular (Novolin R) 0 unit SC [facility]; Protocol Last Admin: 03/30/18 07:39 Dose: Not Given Lidocaine (Lidoderm) 1 ea TD DAILY [facility] Last Admin: 03/29/18 11:14 Dose: 1 ea Metoprolol Tartrate (Lopressor) 75 mg PO Q12 [facility] Last Admin: 03/29/18 22:01 Dose: 75 mg Mirtazapine (Remeron) 15 mg PO HS [facility] Last Admin: 03/29/18 22:03 Dose: 15 mg Multivitamins (Hexavitamin) 1 tab PO DAILY [facility] Last Admin: 03/29/18 11:00 Dose: 1 tab Oxycodone/Acetaminophen (Percocet 5/325 Mg Tab) 1 tab PO Q4H PRN PRN Reason: Pain, moderate (4-7) Stop: 03/31/18 21:06 Last Admin: 03/29/18 01:06 Dose: 1 tab Pneumococcal Polyvalent Vaccine (Pneumovax 23 Vaccine) 0.5 ml IM .ONCE ONE Stop: 03/30/18 12:01 Potassium Chloride (K-Dur 20 Meq Er Tab) 20 meq PO DAILY [facility] Last Admin: 03/29/18 11:00 Dose: 20 meq Rosuvastatin Calcium (Crestor) 5 mg PO HS [facility] Last Admin: 03/29/18 22:01 Dose: 5 mg Tamsulosin HCl (Flomax) 0.4 mg PO DAILY [facility] Last Admin: 03/29/18 11:00 Dose: 0.4 mg Physical Exam - Constitutional Appears: No Acute Distress - Head Exam Head Exam: NORMOCEPHALIC - Neck Exam Neck exam: Positive for: Full Rom, Normal Inspection - Respiratory Exam Respiratory Exam: NORMAL BREATHING PATTERN - Cardiovascular Exam Additional comments: +DP/PT pulses via doppler - Expanded Lower Extremities Exam Right Knee exam: tenderness (tenderness to lateral tib plateau at fx site as well as tibia, +calf tenderness, generalized TTP ), normal inspection Ankle exam: FULL ROM - Neurological Exam Neurological exam: Alert - Psychiatric Exam Psychiatric exam: Normal Affect, Normal Mood - Skin Skin Exam: Dry, Intact, Normal Color, Warm Additional comments: some brawny skin changes RLE distal 1/2 tibia and distal Results - Vital Signs Recent Vital Signs: Last Vital Signs Temp 98.5 F 03/29/18 23:20 Pulse 100 H 03/30/18 06:15 Resp 20 03/30/18 06:15 BP 163/98 H 03/30/18 06:15 Pulse Ox 95 03/29/18 23:20 - Labs Result Diagrams: 03/29/18 13:50 03/28/18 13:57 Labs: Laboratory Results - last 24 hr 03/29/18 03/29/18 03/29/18 06:44 11:23 13:50 WBC 4.4 L RBC 3.51 L Hgb 10.4 L Hct 32.0 L MCV 91.2 MCH 29.6 MCHC 32.5 L RDW 16.5 H Plt Count 132 MPV 9.1 POC Glucose (mg/dL) 124 H 128 H 03/29/18 03/29/18 03/30/18 16:46 21:31 07:00 WBC RBC Hgb Hct MCV MCH MCHC RDW Plt Count MPV POC Glucose (mg/dL) 141 H 168 H 144 H - Impressions Impression: Patient Name / ID : ROMA CHERRY / [id number] Exam Date : 03/29/2018 15:38:29 ( Approved ) Study Comment : Sex / Age : M / 77Y Creator : Dhruv Call MD Dictator : Dhruv Call MD It Support Consultant : Lehr Operator : Dhruv Call MD Approver2 : Report Date : 03/29/2018 16:41:10 My Comment : * Date of service: 03/29/2018 PROCEDURE: Right Knee Radiographs. HISTORY: follow up tibial plateaufx COMPARISON: None. FINDINGS: BONES: Normal. No fracture. JOINTS: Mild narrowing of the medial joint compartment consistent with osteoarthritis. Lateral and patellofemoral compartments appear preserved. JOINT EFFUSION: None. OTHER FINDINGS: None. IMPRESSION: Medial osteoarthritis. Assessment & Plan (1) Closed fracture of lateral portion of right tibial plateau Assessment and Plan: xrays reviewed, no change in position of fractures noted from prior imaging CT ordered will initiate WB per Dr. Lopez, ordered knee immobilizer prn ambulation, will remove for ROM VTE proph dopplers r/o DVT due to right calf pain d/w DR. Lopez, agrees with above Status: Acute (2) Closed fracture of medial portion of right tibial plateau Status: Acute
[2018-03-30] MEDS: Enoxaparin 40 mg Syringe SC SCH (11:05)
[2018-03-30] MEDS: Lidocaine 5% Patch TD SCH (11:07)
[2018-03-30] MEDS: Multiple Vitamins Tab PO SCH (11:08)
[2018-03-30] MEDS: Potassium Chloride 20 mEq ER Tab PO SCH (11:09)
[2018-03-30] MEDS ORDERED: Pneumococcal 23-Valent Vaccine IM ONE (12:00)
[2018-03-30] MEDS ORDERED: Influenza Vaccine 60 mcg/0.5 mL SYR (4YR UP) IM ONE (12:00)
[2018-03-30] MEDS ORDERED: Nitroglycerin 2% Ointment Foilpak UD TOP SCH (12:00)
--- NOTE | 2018-03-30 14:06 | CT ---
Date of service: 03/30/2018 PROCEDURE: HISTORY: right knee: med/lat tibial plateau fx follow up COMPARISON: TECHNIQUE: FINDINGS: No fracture dislocation is observed. 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 A 4.2 centimeter partially imaged lesion in the the distal thigh probably representing a complex fluid collection is observed. A mass is not definitively excluded. The the soft tissues are otherwise unremarkable. IMPRESSION: As above.
[2018-03-30 16:19] VITALS: BP 150/94; PULSE 105; TEMP 97.2; O2SAT 95
--- NOTE | 2018-03-30 16:43 | CP.PCM.PN ---
Subjective - Date & Time of Evaluation Date of Evaluation: 03/30/18 Time of Evaluation: 11:00 - Subjective Subjective: Patient seen today, awake, alert, NAD , patient refusing to eat , taking medications and refusing to participating physical therapy, refused am labs today labs yesterday - reviewed- hgb stable Objective - Vital Signs/Intake and Output Vital Signs (last 24 hours): Temp Pulse Resp BP Pulse Ox 97.2 F L 105 H 20 150/94 H 95 03/30/18 15:18 03/30/18 15:18 03/30/18 15:18 03/30/18 15:18 03/30/18 15:18 Intake and Output: 03/30/18 03/30/18 06:59 18:59 Intake Total 240 Output Total 550 550 Balance -550 -310 - Medications Medications: Current Medications Acetaminophen (Tylenol 325mg Tab) 650 mg PO Q4 PRN PRN Reason: Pain, Mild (1-3) Clonazepam (Klonopin) 0.5 mg PO Q8 [facility] Last Admin: 03/30/18 13:42 Dose: 0.5 mg Clopidogrel Bisulfate (Plavix) 75 mg PO DAILY [facility] Last Admin: 03/30/18 11:09 Dose: Not Given Docusate Sodium (Colace) 100 mg PO TID [facility] Last Admin: 03/30/18 13:37 Dose: Not Given Enoxaparin Sodium (Lovenox) 40 mg SC DAILY [facility] Last Admin: 03/30/18 11:05 Dose: 40 mg Famotidine (Pepcid) 20 mg PO DAILY [facility] Last Admin: 03/30/18 11:09 Dose: Not Given Finasteride (Proscar) 5 mg PO DAILY [facility] Last Admin: 03/30/18 11:09 Dose: Not Given Furosemide (Lasix) 40 mg PO DAILY [facility] Last Admin: 03/30/18 11:02 Dose: 40 mg Hydralazine HCl (Apresoline) 25 mg PO Q8 [facility] Last Admin: 03/30/18 13:42 Dose: 25 mg Insulin Human Regular (Novolin R) 0 unit SC [facility]; Protocol Last Admin: 03/30/18 13:38 Dose: Not Given Lidocaine (Lidoderm) 1 ea TD DAILY [facility] Last Admin: 03/30/18 11:07 Dose: Not Given Metoprolol Tartrate (Lopressor) 75 mg PO Q12 [facility] Last Admin: 03/30/18 11:02 Dose: 75 mg Mirtazapine (Remeron) 15 mg PO HS [facility] Last Admin: 03/29/18 22:03 Dose: 15 mg Multivitamins (Hexavitamin) 1 tab PO DAILY [facility] Last Admin: 03/30/18 11:08 Dose: Not Given Nitroglycerin (Nitro-Bid 2% Oint) 1 ea TOP Q6 [facility] Last Admin: 03/30/18 13:27 Dose: 1 ea Oxycodone/Acetaminophen (Percocet 5/325 Mg Tab) 1 tab PO Q4H PRN PRN Reason: Pain, moderate (4-7) Stop: 03/31/18 21:06 Last Admin: 03/29/18 01:06 Dose: 1 tab Potassium Chloride (K-Dur 20 Meq Er Tab) 20 meq PO DAILY [facility] Last Admin: 03/30/18 11:09 Dose: Not Given Rosuvastatin Calcium (Crestor) 5 mg PO HS [facility] Last Admin: 03/29/18 22:01 Dose: 5 mg Tamsulosin HCl (Flomax) 0.4 mg PO DAILY [facility] Last Admin: 03/30/18 11:08 Dose: Not Given - Labs Labs: 03/29/18 13:50 03/28/18 13:57 PT 12.0 SECONDS (9.7-12.2) 03/28/18 13:57 INR 1.1 03/28/18 13:57 APTT 28 SECONDS (21-34) 03/28/18 13:57 Assessment and Plan - Assessment and Plan (Free Text) Assessment: A/P 77 yr old male w/ hx of Afib, 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 Severe left hydronephrosis. Increased right renal cortical echogenicity. patient needs to f/u with Dr. Sweet office outpt for hydronephrosis , instructions sent to [facility] for f/u and arrange transportation [facility]- No acute fractures. Multilevel degenerative spondylosis most notably affecting the exit [facility] consulted for f/u fx of patella and CT REPEATED - (see full report for details) recommends to remove immobilizer and progressive WB with PT D/w Dr. Osborne , cleared fro discharge back to [facility] today and Dr. Osborne will follow the patient at [facility]
--- NOTE | 2018-03-30 21:15 | CP.PCM.PN ---
Subjective - Date & Time of Evaluation Date of Evaluation: 03/30/18 Time of Evaluation: 10:20 - Subjective Subjective: dictated Objective - Vital Signs/Intake and Output Vital Signs (last 24 hours): Temp Pulse Resp BP Pulse Ox 97.2 F L 105 H 20 150/94 H 95 03/30/18 15:18 03/30/18 15:18 03/30/18 15:18 03/30/18 15:18 03/30/18 16:00 Intake and Output: 03/30/18 03/31/18 18:59 06:59 Intake Total 240 Output Total 550 Balance -310 - Labs Labs: 03/29/18 13:50 03/28/18 13:57 PT 12.0 SECONDS (9.7-12.2) 03/28/18 13:57 INR 1.1 03/28/18 13:57 APTT 28 SECONDS (21-34) 03/28/18 13:57
--- NOTE | 2018-03-31 04:18 | DS ---
DISCHARGE DIAGNOSES: 1. Injury to the back, ruled out perirenal hematoma. 2. Hypertension. 3. Chronic kidney disease. 4. Obstructive uropathy. 5. Left-sided hydronephrosis. HISTORY OF PRESENT ILLNESS AND HOSPITAL COURSE: This is a 77-year-old [facility] resident who had a fall on [facility] day of admission at [facility], and there was suspicion of perinephric hematoma after the patient was referred to emergency room, and he underwent a CAT scan of the abdomen and pelvis. The patient was admitted for observation. Repeat ultrasound and CBC ruled out any perinephric hematoma. The patient is for discharge. Condition upon discharge is stable. The patient needs outpatient followup with Urology for left-sided hydronephrosis. The patient is stable. The patient is DNR/DNI. He is currently at . PHYSICAL EXAMINATION: VITAL SIGNS: Blood pressure 150/94, pulse 105, respiratory rate 20, and temperature 97.2. LUNGS: Clear. CARDIOVASCULAR SYSTEM: S1 and S2, regular. ABDOMEN: Soft. Lord catheter in place. PLAN: Discharge the patient. The patient's nursing staff will be instructed to provide better care as far as the patient's history of fall which is concern. CT of the joint was done and that is negative for any kind of fracture or dislocation. He is for discharge. Kevin Osborne MD
== END 2018-03-30 17:26 ==
LOC: C.ER 12:28 → C.9E 16:38 → INTOOBSV 16:38 → C.6T 18:44
PROVIDERS: ADMIT Internal Medicine; ATTEND Internal Medicine
DX: S39.92XA Unspecified injury of lower back, initial encounter (principal); S82.141D Displaced bicondylar fracture of right tibia, subsequent encounter for closed fracture with routine healing; W19.XXXA Unspecified fall, initial encounter; E11.22 Type 2 diabetes mellitus with diabetic chronic kidney disease; L89.153 Pressure ulcer of sacral region, stage 3; E78.00 Pure hypercholesterolemia, unspecified; E78.5 Hyperlipidemia, unspecified; G89.29 Other chronic pain; M54.9 Dorsalgia, unspecified; I13.0 Hypertensive heart and chronic kidney disease with heart failure and stage 1 through stage 4 chronic kidney disease, or unspecified chronic kidney disease; I25.10 Atherosclerotic heart disease of native coronary artery without angina pectoris; I48.91 Unspecified atrial fibrillation; I50.9 Heart failure, unspecified; M47.9 Spondylosis, unspecified; N13.30 Unspecified hydronephrosis; Z53.20 Procedure and treatment not carried out because of patient's decision for unspecified reasons; Z66 Do not resuscitate; Z86.73 Personal history of transient ischemic attack (TIA), and cerebral infarction without residual deficits; Z87.891 Personal history of nicotine dependence; Z95.5 Presence of coronary angioplasty implant and graft
CPT/HCPCS: 36415; 70450; 71046; 72125; 73560; 73700; 74176; 76770; 80053; 82550; 82948; 85025; 85027; 85610; 85730; 93005; 96374; 97163; 97167; 97530; 99285; G0378; G8978; G8979; G8980; G8987; G8988; G8989; J1650; J1940